=== PATIENT | male | born 1955 | race Caucasian/White ===

== ENCOUNTER 2021-03-31 09:12 | Emergency (ER) | payer BC, MEDICARE, SELFPAY ==
[2021-03-31 09:29] VITALS: BP 113/52; PULSE 58; RESP 16; TEMP 36.4; O2SAT 98
--- NOTE | 2021-03-31 10:07 | ED.WOUNDLAC ---
HPI - Wound/Laceration General Chief Complaint: Wound/Laceration Stated Complaint: cut left leg Time Seen by Provider: 03/31/21 10:07 Source: patient Mode of arrival: ambulatory Limitations: no limitations History of Present Illness HPI narrative: Tim Gonzalez comes to [facility] care with a PMH of chronic pain, high cholesterol, diabetes, GERD, chronic anticoagulation, depression, who comes with a laceration to the left, anterior lower extremity. Laceration occurred POA and happened when he ran his leg up against a piece of furniture Related Data Home Medications Medication Instructions Recorded Confirmed atorvastatin 03/31/21 fenofibrate mg 03/31/21 gabapentin 03/31/21 metformin mg 03/31/21 methadone 03/31/21 nitroglycerin mg 03/31/21 pantoprazole PO 03/31/21 ramipril mg 03/31/21 rivaroxaban [Xarelto] mg 03/31/21 trazodone 03/31/21 venlafaxine mg PO 03/31/21 Allergies Allergy/AdvReac Type Severity Reaction Status Date / Time amoxicillin Allergy Intermediate TONGUE Verified 04/19/18 12:35 SWELLING clavulanic acid Allergy Intermediate TONGUE Verified 04/19/18 12:35 SWELLING Sulfa (Sulfonamide Allergy Intermediate TONGUE Verified 04/19/18 12:35 Antibiotics) SWELLING codeine Allergy Unknown Verified 06/03/10 13:45 Review of Systems Review of Systems: CONSTITUTIONAL: Denies fever, chills, sweats. EYES: Denies visual changes, redness, discharge. ENT: Denies rhinorrhea, congestion, sore throat, otalgia. CARDIOVASCULAR: Denies chest pain, palpitations, edema. RESPIRATORY: Denies dyspnea, wheezing, cough GASTROINTESTINAL: Denies abdominal pain, nausea, vomiting, diarrhea. GENITOURINARY: Denies dysuria, hematuria, abnormal discharge SKIN: Denies rash or itching. NEUROLOGIC: Denies numbness, or focal weakness. PSYCHIATRIC: Denies anxiety or depression. [facility] Past Medical History Medical History Chronic anticoagulation Chronic pain High cholesterol Hypertension Family History Family History Mother Family history of diabetes mellitus in first degree relative Family history of pancreatic cancer Sibling Family history of diabetes mellitus in first degree relative Family history of heart disease in male family member before age 55 Father Family history of heart disease in male family member before age 55 Other Family history of cardiovascular disease Social History Social History (Updated 03/31/21 @ 10:51 by Melissa Anderson CNP) Smoking status: Former smoker Alcohol intake: former Substance use: former Comments At time of signature, I agree with nursing past medical, surgical, social and family history. There is no relevant family history pertinent to the presenting complaint. Exam Narrative: GENERAL: This is a well-nourished, well-developed patient, in mild distress. HEAD: normocephalic, atraumatic. EYES: Sclera clear/white. Vision is grossly intact. EARS: External ears normal,. Hearing grossly intact. NOSE: External nose normal without nasal discharge, nares without redness, no rhinorrhea. THROAT: Mucous membranes moist, NECK: Neck supple, non-tender CARDIOVASCULAR: Regular rate and rhythm without murmurs, gallops, or rubs. RESPIRATORY: Clear to auscultation. Breath sounds equal bilaterally. No wheezes, rales, or rhonchi. GASTROINTESTINAL: Abdomen soft, SKIN: warm, intact with no suspicious lesions or rash, good texture and turgor. 6 cm jagged lack to left anterior lower leg; controlled bleeding NEURO: awake, alert, and oriented to person, place and time. There were no obvious focal neurologic abnormalities. Steady gait EXTREMITIES: Normal range of motion. BACK: Nontender without deformity Course Course Emergency Course: Patient came with a 6 cm laceration to left lower extremity that occurred POA Laceration repair Start antibiotic largel
--- NOTE | 2021-03-31 10:36 | PC.NURSE ---
inpatient auditor in suturing.
== END 2021-03-31 11:09 | disposition home or self-care (01) ==
PROVIDERS: Emergency Provider Nurse Practitioner
DX: S81.812A Laceration without foreign body, left lower leg, initial encounter (principal); W22.03XA Walked into furniture, initial encounter; Z87.891 Personal history of nicotine dependence; Z79.01 Long term (current) use of anticoagulants; E78.00 Pure hypercholesterolemia, unspecified; I10 Essential (primary) hypertension; K21.9 Gastro-esophageal reflux disease without esophagitis; E11.9 Type 2 diabetes mellitus without complications; F32.9 Major depressive disorder, single episode, unspecified
CPT/HCPCS: 12002; 99213; G0463

== ENCOUNTER 2022-02-28 13:58 | Outpatient (CLI) | payer BC, MEDICARE, SELFPAY ==
--- NOTE | ~2022-02-28 | CT_ITS ---
EXAMINATION: CT chest high resolution wo tn DATE: 02/28/2022 14:22 INDICATION: ILD TECHNIQUE: Computed tomography (CT) of the chest was performed without intravenous contrast. Addition al 3D reconstructions utilizing coronal maximum intensity projection (MIP) were performed. Automated exposure control and iterative reconstruction technique were employed. The dose-length product was 21 5.76 mGy-cm. COMPARISON: Chest CT dated 06/02/2009 FINDINGS: Lung volumes remain normal. There are however new peripheral and lower lung predominant groundglass o pacities, irregular septal line thickening with honeycombing consistent with usual interstitial pneum onia (UIP) pattern chronic interstitial lung disease. 3 small bilateral pleural effusions. Mild cardi omegaly. Atherosclerotic coronary artery calcific lesions. Median sternotomy wires and changes of cor onary artery bypass grafting. Coronary artery stenting both of the needle vessels and of a bypass gra ft. No pericardial effusion. Thoracic aorta is normal in caliber. Calcified right hilar and mediastin al lymph nodes and splenic calcification, all consistent with old granulomatous disease. Moderate to severe thoracic spondylosis with multiple scattered Schmorl's nodes. IMPRESSION: 1. Peripheral and lower lung predominant lung disease with appearance favoring UIP pattern chronic in terstitial lung disease. Differential would include nonspecific interstitial pneumonia (NSIP) pattern chronic interstitial lung disease or mild pulmonary edema superimposed over mild emphysema. 2. Cardiomegaly with coronary artery disease and change of prior coronary artery bypass grafting and stenting of both chitina and vessels and of a bypass graft. Reviewed, dictated and finalized at location A. IMPRESSION: 1. Peripheral and lower lung predominant lung disease with appearance favoring UIP pattern chronic interstitial lung disease. Differential would include nonsp ecific interstitial pneumonia (NSIP) pattern chronic interstitial lung disease or mild pulmonary edema superimposed over mild emphysema. 2. Cardiomegaly with coronary artery disease and change of prior coronary arter y bypass grafting and stenting of both chitina and vessels and of a bypass graft .
== END 2022-02-28 13:59 | disposition home or self-care (01) ==
DX: J84.9 Interstitial pulmonary disease, unspecified (principal); I51.7 Cardiomegaly; I25.10 Atherosclerotic heart disease of native coronary artery without angina pectoris; Z98.890 Other specified postprocedural states
CPT/HCPCS: 71250

== ENCOUNTER 2022-06-15 13:14 | Emergency (ER) | payer MEDICARE, BC, SELFPAY ==
--- NOTE | ~2022-06-15 | XR_ITS ---
EXAMINATION: XR shoulder LT min 2V DATE: 06/15/2022 13:43 INDICATION: Anterior left shoulder pain and limited range of motion TECHNIQUE: AP internally and externally rotated, AP oblique externally rotated and transscapular Y vi ews of the left shoulder were obtained. COMPARISON: None FINDINGS: Slight widening of the left acromioclavicular joint space consistent with age-indeterminate acromiocl avicular joint separation. Acromioclavicular osteoarthritis with mild degenerative cystic and hypertr ophic changes at both sides of the joint space along with some dystrophic calcifications along the do rsal aspect of the capsule. Normal alignment and joint spaces at the glenohumeral joint. No fracture. Soft tissues are unremarkable. Median sternotomy wires and mediastinal surgical clips are seen, like ly from prior coronary artery bypass grafting. There is also been coronary artery stenting. Visualize d portions of the left lung is clear. IMPRESSION: Osteoarthritic changes at the left acromioclavicular joint with widening of the joint space consisten t with age-indeterminate acromioclavicular joint separation. Reviewed, dictated and finalized at location B. NTIFIC PUBLICATIONS EDITOR IMPRESSION: Osteoarthritic changes at the left acromioclavicular joint with widening of the joint space consistent with age-indeterminate acromioclavicular joint separati on.
[2022-06-15 13:25] VITALS: BP 124/50; PULSE 75; RESP 20; TEMP 35.8; O2SAT 100
--- NOTE | 2022-06-15 13:59 | ED.UPPEXIN ---
HPI - Extremity Injury (Upper) General Chief Complaint: Extremity Injury, Upper Stated Complaint: left shoulder pain Time Seen by Provider: 06/15/22 13:59 Source: patient Mode of arrival: ambulatory Limitations: no limitations History of Present Illness HPI narrative: 66 y/o male presented for c/o left shoulder pain after fall yesterday. Endorses pain to the top of the shoulder and decreased range of motion at the shoulder. Pain reported to shoulder with minimal movement. Denies radiating pain or numbness, tingling, weakness of the extremity. Admits to striking his head/left muslim on the floor. Denies LOC. Endorses headache. Also reports mild left upper thigh pain, denies bruising or numbness/weakness of the leg. Using cane. Taking methadone for chronic pain per pt. wears O2. Hx COPD. Taking Xarelto. Related Data Home Medications Medication Instructions Recorded Confirmed atorvastatin 80 mg tablet 80 mg PO DAILY 03/31/21 06/15/22 fenofibrate 160 mg tablet 160 mg PO DAILY 03/31/21 06/15/22 gabapentin 300 mg capsule 300 mg PO DIRECTED 03/31/21 06/15/22 metformin 1,000 mg tablet 1,000 mg PO DIRECTED 03/31/21 06/15/22 methadone 5 mg tablet 5 mg PO DAILY 03/31/21 06/15/22 nitroglycerin 0.4 mg sublingual 0.4 mg sublingual DIRECTED 03/31/21 06/15/22 tablet pantoprazole 40 mg tablet,delayed 40 mg PO DIRECTED 03/31/21 06/15/22 release ramipril 2.5 mg capsule 2.5 mg PO DIRECTED 03/31/21 06/15/22 rivaroxaban 20 mg tablet (Xarelto) 20 mg PO DIRECTED 03/31/21 06/15/22 trazodone 150 mg tablet 150 mg PO DAILY 03/31/21 06/15/22 venlafaxine 150 mg 150 mg PO DAILY 03/31/21 06/15/22 capsule,extended release 24 hr furosemide 20 mg tablet 20 mg PO DAILY 06/15/22 06/15/22 prednisone 5 mg tablet 5 mg PO DIRECTED 06/15/22 06/15/22 tamsulosin 0.4 mg capsule 0.4 mg PO DAILY 06/15/22 06/15/22 Allergies Allergy/AdvReac Type Severity Reaction Status Date / Time amoxicillin Allergy Intermediate TONGUE Verified 04/19/18 12:35 SWELLING clavulanic acid Allergy Intermediate TONGUE Verified 04/19/18 12:35 SWELLING Sulfa (Sulfonamide Allergy Intermediate TONGUE Verified 04/19/18 12:35 Antibiotics) SWELLING codeine Allergy Unknown Itching Verified 06/15/22 13:50 Review of Systems Review of Systems: CONSTITUTIONAL: Denies body aches, fever, chills EYES: Denies visual changes CARDIOVASCULAR: Denies chest pain, palpitations, or edema. RESPIRATORY: Denies cough or dyspnea. GASTROINTESTINAL: Denies abdominal pain, nausea, vomiting, or diarrhea. SKIN: Denies rash, or wounds. MUSCULOSKELETAL: Per HPI NEUROLOGIC: Denies headache, numbness, tingling, or weakness. All systems reviewed & are unremarkable except as noted in HPI and below PMFSH Past Medical History Medical History Chronic anticoagulation Chronic pain High cholesterol Hypertension Family History Family History Mother Family history of diabetes mellitus in first degree relative Family history of pancreatic cancer Sibling Family history of diabetes mellitus in first degree relative Family history of heart disease in male family member before age 55 Father Family history of heart disease in male family member before age 55 Other Family history of cardiovascular disease Social History Social History Smoking status: Former smoker Alcohol intake: former Substance use: former Comments At time of signature, I have reviewed and agree with nursing past medical, surgical, social and family history unless otherwise noted. Please see nursing chart for further information. There is no relevant family history pertinent to the presenting complaint Exam Narrative: GENERAL: Well-appearing, well-nourished, and in no acute distress. HEAD: Normocephalic, atraumatic. EYE
== END 2022-06-15 14:19 | disposition home or self-care (01) ==
PROVIDERS: Emergency Provider Nurse Practitioner Family
DX: M25.512 Pain in left shoulder (principal); Z87.891 Personal history of nicotine dependence; E78.00 Pure hypercholesterolemia, unspecified; I10 Essential (primary) hypertension; Z79.01 Long term (current) use of anticoagulants; J44.9 Chronic obstructive pulmonary disease, unspecified; Z99.81 Dependence on supplemental oxygen
CPT/HCPCS: 73030; 99213; G0463

== ENCOUNTER 2022-08-06 09:42 | Inpatient (IN) | payer MEDICARE, BC, SELFPAY ==
[2022-08-06] VITALS (22 sets, daily range): BP systolic 101–145; BP diastolic 54–100; PULSE 78–112; RESP 11–30; TEMP 36–36.4; O2SAT 93–100; BMI 24.6
--- NOTE | ~2022-08-06 | XR_ITS ---
EXAMINATION: XR chest 1V portable DATE: 08/11/2022 05:36 INDICATION: Respiratory failure. TECHNIQUE: A single frontal view of the chest was obtained. COMPARISON: Chest single view 08/10/2022, chest CT 08/06/2022 FINDINGS: There are small right and moderate-sized left pleural effusions. There are airspace opaciti es in all lung zones bilaterally with a basilar predominance. No pneumothorax. Cardiomegaly is noted. Median sternotomy wires and mediastinal surgical clips are seen, likely from prior coronary artery b ypass grafting. IMPRESSION: 1. Stable small right and moderate-sized left pleural effusions. 2. Stable diffuse lung disease with a basilar predominance, consistent with pulmonary edema versus pn eumonia. 3. Cardiomegaly. Reviewed, dictated and finalized at location A. WORKER IMPRESSION: 1. Stable small right and moderate-sized left pleural effusions. 2. Stable diffuse lung disease with a basilar predominance, consistent with pul monary edema versus pneumonia. 3. Cardiomegaly.
--- NOTE | ~2022-08-06 | XR_ITS ---
EXAMINATION: XR chest 1V portable DATE: 08/08/2022 06:28 INDICATION: Respiratory failure. TECHNIQUE: A single frontal view of the chest was obtained. COMPARISON: Chest single view 08/07/2022, chest CT 08/06/2022 FINDINGS: There are small right and large left pleural effusions. There are airspace and interstitial opacities throughout the lungs bilaterally. No pneumothorax. Cardiomegaly is noted. Median sternotom y wires and mediastinal surgical clips are seen, likely from prior coronary artery bypass grafting. T here is a vascular stent in right neck. IMPRESSION: 1. Stable small right and large left pleural effusions. 2. Stable diffuse lung disease, consistent with pulmonary edema versus pneumonia. 3. Cardiomegaly. Reviewed, dictated and finalized at location A. BINDER STRIPPER IMPRESSION: 1. Stable small right and large left pleural effusions. 2. Stable diffuse lung disease, consistent with pulmonary edema versus pneumoni a. 3. Cardiomegaly.
--- NOTE | ~2022-08-06 | XR_ITS ---
EXAMINATION: XR chest 1V portable DATE: 08/09/2022 05:39 INDICATION: Respiratory failure. TECHNIQUE: A single frontal view of the chest was obtained. COMPARISON: Chest single view 08/08/2022 FINDINGS: There are small right and moderate-sized left pleural effusions. There are airspace and int erstitial opacities throughout the lungs bilaterally. No pneumothorax. Cardiomegaly is noted. Median sternotomy wires and mediastinal surgical clips are seen, likely from prior coronary artery bypass gr afting. There is a vascular stent in right neck. IMPRESSION: 1. Stable small right and moderate-sized left pleural effusions. 2. Stable diffuse lung disease, consistent with pulmonary edema versus pneumonia. 3. Cardiomegaly. Reviewed, dictated and finalized at location A. ATOR WEAPON LOCATING RADAR IMPRESSION: 1. Stable small right and moderate-sized left pleural effusions. 2. Stable diffuse lung disease, consistent with pulmonary edema versus pneumoni a. 3. Cardiomegaly.
--- NOTE | ~2022-08-06 | CT_ITS ---
EXAMINATION: CT brain wo con DATE: 08/06/2022 11:02 INDICATION: Decreased mental status TECHNIQUE: Computed tomography (CT) of the head was performed without intravenous contrast. The dose- length product was 1286.33 mGy-cm. Automated exposure control and iterative reconstruction technique were employed. COMPARISON: CT dated 08/25/2008 FINDINGS: Brain parenchymal volume is normal. No ventriculomegaly or midline shift. Basilar cisterns are patent. Paranasal sinuses and mastoids are pneumatized. No depressed skull fractures. No acute he morrhage, infarction, mass or mass effect. There are scattered mild periventricular and subcortical w akila matter changes, most likely related to small vessel ischemic disease (microangiopathy). IMPRESSION: 1. No acute intracranial abnormality. Reviewed, dictated and finalized at location A. CTOR BUSINESS DEVELOPMENT
--- NOTE | ~2022-08-06 | XR_ITS ---
EXAMINATION: [id number]_[id number]_CR DATE: 08/08/2022 14:47 INDICATION: Left pleural effusion status post thoracentesis. TECHNIQUE: A single frontal view of the chest was obtained. COMPARISON: Chest single view 08/08/2022 FINDINGS: There are airspace and interstitial opacities in all lung zones bilaterally. There are smal l right and moderate-sized left pleural effusions. No pneumothorax. Calcified right hilar lymph nodes are consistent with old granulomatous disease. Cardiomegaly is noted. Median sternotomy wires and me diastinal surgical clips are seen, likely from prior coronary artery bypass grafting. IMPRESSION: 1. Small right and moderate-sized left pleural effusions with improvement on the left status post tho racentesis. 2. Diffuse lung disease with improvement on the left, consistent with pulmonary edema versus pneumoni a. 3. Cardiomegaly. Reviewed, dictated and finalized at location A. AGING INSPECTOR IMPRESSION: 1. Small right and moderate-sized left pleural effusions with improvement on th e left status post thoracentesis. 2. Diffuse lung disease with improvement on the left, consistent with pulmonary edema versus pneumonia. 3. Cardiomegaly.
--- NOTE | ~2022-08-06 | US_ITS ---
EXAMINATION: US thoracentesis DATE: 08/08/2022 14:35 INDICATION: pleural effusion TECHNIQUE: The procedure and its risks, benefits, and alternatives were discussed with the patient. P otential risks discussed included bleeding, infection, and pneumothorax. The patient understood the r isks and agreed to proceed. The skin was prepped and draped in sterile fashion. 1% lidocaine was used for local anesthesia. Under ultrasound guidance, a 5 Fr catheter with trochar was advanced into the left pleural effusion. Fluid was aspirated. The catheter was removed, and a dressing was applied. The re were no immediate complications. FINDINGS: Ultrasound images demonstrate a left pleural effusion and the catheter within the fluid. IMPRESSION: 1. Successful ultrasound-guided thoracentesis yielding 850 mL of serosanguineous fluid. Reviewed, dictated and finalized at location A. NTATION & MOBILITY SPECIALIST IMPRESSION: 1. Successful ultrasound-guided thoracentesis yielding 850 mL of serosanguineo us fluid.
--- NOTE | ~2022-08-06 | XR_ITS ---
XR chest 1V portable 08/07/2022 06:10 Indication: Respiratory failure Procedure: AP portable chest Comparison: Comparison to multiple prior studies sequentially, with oldest reviewed study dated 01/2010. Findings: Status post median sternotomy for CABG. Cardiomegaly. Diffuse bilateral airspace disease is unchanged. Bilateral pleural effusions, left greater than right. No pneumothorax. Impression: 1: Stable diffuse bilateral airspace disease which may represent pneumonia and/or edema. 2: Stable bilateral pleural effusions, left greater than right. Reviewed, dictated and finalized at location A. ESS TRACK VEHICLE MECHANIC Impression: 1: Stable diffuse bilateral airspace disease which may represent pneumonia and/ or edema. 2: Stable bilateral pleural effusions, left greater than right.
--- NOTE | ~2022-08-06 | CT_ITS ---
EXAMINATION: CT chest high resolution wo co DATE: 08/06/2022 15:32 INDICATION: hypoxia TECHNIQUE: Computed tomography (CT) of the chest was performed without intravenous contrast, includin g high-resolution images of the lungs. Automated exposure control and iterative reconstruction techni que were employed. The dose-length product was 510.76 mGy-cm. COMPARISON: 02/28/2022. X-ray chest, same date. FINDINGS: CHEST: Thoracic aorta: Mild ectasia and arch calcification. Lung parenchyma and airways: Centrilobular and groundglass opacities diffusely in the right lung and to a lesser extent in the aerated portions of the left upper lobe. Peripheral reticular opacities. Li ngular and left lower lobe consolidation with air bronchograms and volume loss. Thoracic inlet, axillae and chest wall: No thyroid or soft tissue mass. No axillary lymphadenopathy. Mediastinum: Dilated central pulmonary arteries as can be seen with pulmonary arterial hypertension. Right infrahilar calcified node Heart and pericardium: Prior CABG. Coronary artery stents. Aortic valve calcification. Cardiomegaly. Coronary artery calcifications: Heavy. Pleura: Large left and small right pleural fluid collections. Upper abdomen: No significant finding. Thoracic bones: No acute osseous finding in the chest. IMPRESSION: 1. Pulmonary opacities may reflect active interstitial lung disease, hypersensitivity pneumonitis, re spiratory bronchiolitis, or atypical infection, with underlying chronic facial change. A component of mild interstitial edema may also be present. 2. Lingular and left lower lobe atelectasis/consolidation. Infection is not excluded. 3. Large left and small right pleural effusions.. Reviewed, dictated and finalized at location K. COPTER TECHNICIAN IMPRESSION: 1. Pulmonary opacities may reflect active interstitial lung disease, hypersensi tivity pneumonitis, respiratory bronchiolitis, or atypical infection, with unde rlying chronic facial change. A component of mild interstitial edema may also b e present. 2. Lingular and left lower lobe atelectasis/consolidation. Infection is not exc luded. 3. Large left and small right pleural effusions..
--- NOTE | ~2022-08-06 | XR_ITS ---
EXAMINATION: XR chest 1V portable DATE: 08/10/2022 05:59 INDICATION: Respiratory failure. TECHNIQUE: A single frontal view of the chest was obtained. COMPARISON: Chest single view 08/09/2022 FINDINGS: There are small right and moderate-sized left pleural effusions. There is interstitial and airspace opacities in all lung zones bilaterally. No pneumothorax. Cardiomegaly is noted. Median ster notomy wires and mediastinal surgical clips are seen, likely from prior coronary artery bypass grafti ng. Calcified right hilar lymph nodes are consistent with old granulomatous disease. IMPRESSION: 1. Stable small right and moderate-sized left pleural effusions. 2. Diffuse lung disease with mild improvement on the right, consistent with pulmonary edema versus pn eumonia. 3. Cardiomegaly. Reviewed, dictated and finalized at location A. STAIRS MAID IMPRESSION: 1. Stable small right and moderate-sized left pleural effusions. 2. Diffuse lung disease with mild improvement on the right, consistent with pul monary edema versus pneumonia. 3. Cardiomegaly.
--- NOTE | ~2022-08-06 | XR_ITS ---
XR chest 1V 08/06/2022 11:02 Indication: Altered mental status. Dyspnea. Procedure: AP portable chest Comparison: 05/03/2012 Findings: Status post median sternotomy for CABG. Moderate cardiomegaly with pulmonary edema. Bilater al pleural effusions, large on the left and small on the right. Cannot exclude underlying pneumonia. Impression: 1: Cardiomegaly with pulmonary edema. 2: Bilateral pleural effusions, left greater than right. Reviewed, dictated and finalized at location A. STANT PRODUCER Impression: 1: Cardiomegaly with pulmonary edema. 2: Bilateral pleural effusions, left greater than right.
--- NOTE | 2022-08-06 09:50 | ECG_ITS ---
Measurements Intervals [place] Rate: 96 P: PA: 0 QRS: 16 QRSD: 121 T: 125 QT: 392 QTc: 496 Interpretive Statements ATRIAL FIBRILLATION INTRAVENTRICULAR CONDUCTION DELAY DELAYED PRECORDIAL R/S TRANSITION BORDERLINE ST-T WAVE ABNORMALITY- HIGH LATERAL LEADS ABNORMAL ECG NO PREVIOUS ECG AVAILABLE FOR COMPARISON Electronically Signed On 08-06-2022 10:04:56 PROCUREMENT BUYER by Julian Jones D.O.
[2022-08-06] MEDS: NALOXONE HCL 0.4 MG/ML VIAL IV PUSH (09:52)
[2022-08-06 09:55] LABS: Glucose Point of Care 135 mg/dl (65-105)
--- NOTE | 2022-08-06 09:55 | PC.NURSE ---
after giving pt Narcan pt awake and talking. pt unable to stay still during CT scan. will try again after pt. is more calm.
[2022-08-06 10:33] LABS: Alveolar/Arterial O2 Gradient 564.3 mmHg; Base Excess ABG 9.6 mEq/l (+/-2.0); Fractional Inspired Oxygen 100 %; HCO3 ABG 37.7 mEq/l (22.0-26.0); Oxygen Content ABG 12.9 %vol (16.0-22.0); Oxygen Saturation ABG 93.1 % (95.0-100.0); Oxyhemoglobin 90.4 % THb (90.0-100.0); PO2 ABG 74.2 mmHg (80.0-100.0); PO2 FiO2 Ratio Arterial Blood 0.74 %; Total Hemoglobin 10.1 g/dL (12.0-18.0); pH ABG 7.322 (7.350-7.450)
[2022-08-06 10:36] LABS: Device NON-REBREATHER MASK; PCO2 ABG 74.5 mmHg (35.0-45.0); Site Drawn LEFT BRACHIAL
[2022-08-06] MEDS: LORazepam INJ (*CRX) 2 MG/ML VIAL 0.5 MG IV PUSH (10:43)
[2022-08-06 10:48] LABS: Basophils Absolute Auto 0.1 K/mm3 (0.0-0.1); Basophils Percent Auto 0.5 % (0.2-1.2); Hematocrit 32.2 % (42.0-52.0); Hemoglobin 8.9 g/dL (14.0-18.0); Immature Granulocyte Absolute 0.05 K/mm3 (0.00-0.031); Immature Granulocyte Percent A 0.5 % (0-0.5); Lymphocytes Percent Auto 3.6 % (18.3-44.2); Mean Corpuscular HGB Conc 27.6 g/dl (32-36); Mean Corpuscular Hemoglobin 25.2 pg (26-34); Mean Corpuscular Volume 91.2 fl (80-100); Monocytes Percent Auto 9.3 % (2.6-8.5); Neutrophils Absolute Auto 9.5 K/mm3 (1.3-6.7); Neutrophils Percent Auto 86.1 % (45.5-73.1); Platelet Count Result 301 k/mm3 (150-375); Red Blood Count 3.53 M/mm3 (4.6-6.20)
[2022-08-06 10:56] LABS: Alanine Aminotransferase 17 U/L (6-50); Albumin Level 3.6 g/dL (3.5-5.1); Alkaline Phosphatase 102 U/L (38-126); Anion Gap 6 mmol/L (8-16); Aspartate Amino Transferase 25 U/L (17-59); Bilirubin,Total 0.9 mg/dL (0.2-1.3); Blood Urea Nitrogen 21 mg/dL (9-20); Calcium 8.4 mg/dL (8.4-10.2); Carbon Dioxide 39 mmol/L (22-30); Chloride 91 mmol/L (98-107); Estimated CRCL calculation 47 ml/min; Estimated Glomerular Filt Rate 51; Glucose 136 mg/dL (65-110); Potassium 4.4 mmol/L (3.4-5.0); Sodium 136 mmol/L (137-145)
[2022-08-06 10:57] LABS: Ammonia 34 umol/L (9-30)
--- NOTE | 2022-08-06 10:58 | PC.NURSE ---
pt in CT at this time.
[2022-08-06 10:59] LABS: INR 3.1; Prothrombin Time 30.7 Seconds (11.1-14.7)
[2022-08-06 11:00] LABS: Partial Thromboplastin Time 56.6 SECONDS (22.3-36.8)
[2022-08-06 11:16] LABS: Platelet Estimate Adequate (Adequate)
[2022-08-06 11:17] LABS: Anisocytosis 1+ (NORMAL); Hypochromasia 1+ (NORMAL); Stomatocytes 1+ (NORMAL)
[2022-08-06 11:18] LABS: Acanthocytes 1+ (NORMAL); Schistocytes None Seen (NORMAL)
[2022-08-06 11:22] LABS: Add Urine Microscopic? YES; Appearance Urine Clear (Clear); Bilirubin Urine 1+ (Negative); Blood Urine Negative (Negative); Color Urine Yellow (Yellow); Glucose Urine UA Negative (Negative); Ketones Urine Negative (Negative); Leukocyte Esterase Ur Negative LEU/UL (Negative); Nitrate Urine Negative (Negative); Protein Urine 2+ mg/dL (Negative); Specific Grav Ur >= 1.030 (1.001-1.035)
[2022-08-06 11:23] LABS: Influenza A QL RT-PCR Negative (Negative); Influenza B QL RT-PCR Negative (Negative); SARS-CoV-2 RNA PCR Negative
[2022-08-06 11:28] LABS: WBC Urine 0-3 /hpf
--- NOTE | 2022-08-06 11:34 | ED.AMS ---
HPI - Altered Mental Status General Chief Complaint: Altered Mental Status Stated Complaint: UNRESPONSIVE Time Seen by Provider: 08/06/22 09:47 Source: family, EMS, RN notes reviewed and old records reviewed Mode of arrival: EMS Limitations: altered mental status History of Present Illness HPI narrative: This is a 67 year old male with history of heart disease, lung disease, and chronic pain who presents for evaluation of decreased responsiveness. 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 She states that patient has had increasing shortness of breath and lethargy for several weeks. She states that he has started requiring oxygen all the time for several weeks and he is sleeping more and eating less. She reports she also thinks he is getting confused with his medication. Yesterday was a good day per family. She last talked to him at 6 pm yesterday and he seemed fine. He was in bed asleep last night at 930 pm when she arrived home. He did not wake up this morning so she tried to wake him at at 9 am this morning. She reports he was breathing but unresponsive. EMS reports patient was 77% on his 3 L NC so he was placed on nonrebreather. Related Data Home Medications Medication Instructions Recorded Confirmed atorvastatin 80 mg tablet 80 mg PO DAILY 03/31/21 08/06/22 gabapentin 300 mg capsule 300 mg PO DIRECTED 03/31/21 08/06/22 metformin 1,000 mg tablet 1,000 mg PO BID 03/31/21 08/06/22 methadone 5 mg tablet 5 mg PO DAILY 03/31/21 08/06/22 nitroglycerin 0.4 mg sublingual 0.4 mg sublingual DIRECTED PRN 03/31/21 08/06/22 tablet Chest Pain pantoprazole 40 mg tablet,delayed 40 mg PO ONCE 03/31/21 08/06/22 release rivaroxaban 20 mg tablet (Xarelto) 20 mg PO DAILY 03/31/21 08/06/22 trazodone 150 mg tablet 150 mg PO HS 03/31/21 08/06/22 venlafaxine 150 mg 150 mg PO DAILY 03/31/21 08/06/22 capsule,extended release 24 hr prednisone 5 mg tablet 5 mg PO ONCE 06/15/22 08/06/22 tamsulosin 0.4 mg capsule 0.4 mg PO DAILY 06/15/22 08/06/22 methadone 5 mg tablet 5 mg PO BID 08/06/22 08/06/22 Allergies Allergy/AdvReac Type Severity Reaction Status Date / Time amoxicillin Allergy Intermediate TONGUE Verified 04/19/18 12:35 SWELLING clavulanic acid Allergy Intermediate TONGUE Verified 04/19/18 12:35 SWELLING Sulfa (Sulfonamide Allergy Intermediate TONGUE Verified 04/19/18 12:35 Antibiotics) SWELLING codeine Allergy Unknown Itching Verified 06/15/22 13:50 Review of Systems Review of Systems: ROS unobtainable: Yes unobtainable due to mental status PMFSH Past Medical History Medical History (Updated 08/06/22 @ 18:32 by Kim Vaz MD) Amputation toe left small toe Chronic anticoagulation Chronic pain Coronary artery disease Status post CABG and multiple PCIs Diabetes mellitus High cholesterol History of DVT (deep vein thrombosis) History of esophageal dilatation Hyperlipidemia Hypertension Interstitial lung disease Pleural effusion Surgical History Surgical History (Updated 08/06/22 @ 17:56 by Nisha Holly NP) H/O arthroscopic knee surgery H/O carotid endarterectomy H/O shoulder surgery History of back surgery History of esophagogastroduodenoscopy (EGD) History of exploratory laparotomy History of partial colectomy Hx of CABG S/P peripheral artery angioplasty with stent placement Total of 17 stents S/P tonsillectomy and adenoidectomy Family History Family History Mother Family history of diabetes mellitus in first degree relative Family history of pancreatic cancer Sibling Family history of diabetes mellitus in first degree relative Family history of heart disease in male family member before age 55 Father Family history of heart disease in male family member before age 55 Other Family history of cardiovascular disease Social History Social History (Updated 08/06/22 @ 17:59 by Nisha Holly NP) Social History: The
[2022-08-06] MEDS: IPRATROPIUM BR 0.02% INH SOLN 0.5 MG/2.5 ML VIAL 1 MG INHALATION (11:35)
[2022-08-06] MEDS: ALBUTEROL SULFATE NEB 2.5 MG/3 ML INH 10 MG INHALATION (11:36)
[2022-08-06 11:38] LABS: Amphetamine Screen Urine Negative (Negative); Barbiturate Screen Urine Negative (Negative); Benzodiazepines Screen Urine Negative (Negative); Cannabinoid Screen Urine Negative (Negative); Cocaine Screen Urine Negative (Negative); Methadone Screen Urine Positive (Negative); Opiate Screen Urine Negative (Negative); Phencyclidine Screen Urine Negative (Negative)
[2022-08-06] MEDS: FUROSEMIDE INJ 40 MG/4 ML VIAL IV PUSH (11:51)
--- NOTE | 2022-08-06 13:16 | PM.IMHP ---
H&P: HPI History of Present Illness Date/Time: 08/06/22 13:16 Chief Complaint: Altered mental status Narrative: This is a 67-year-old male patient who has a history of chronic back pain and is on methadone. He also has a history of coronary artery disease, interstitial lung disease and O2 dependence. The patient initially had the oxygen to be used at night and p.r.n. however he has been using it 247 at 3 L per nasal cannula. The patient has been sleeping more and eating less. He has become more confused. Yesterday the partner stated that they had a good day and was a normal day for them. The patient was asleep at 9:30 a.m. last night when his significant other arrived home. And then this morning she tried to wake him up around 9:00 a.m. and was having difficulty getting him to arouse. EMS was activated and his oxygen levels only 7 7 % on 3 L per nasal cannula and then was placed on a non-rebreather. Initial blood gas pH was 7.322 and CO2 was 74.5. Repeat ABG 7.282 pH CO2 was 85.3. His settings were changed and repeat the ABG 7.380 and CO2 71.6. PO2 was 68.5. The aircraft engine assembler has been consulted and has already seen the patient and ER. Chest x-ray shows cardiomegaly with pulmonary edema. Bilateral pleural effusions left greater than right. Head CT shows no acute intracranial abnormality. High-resolution CT was read as1. Pulmonary opacities may reflect active interstitial lung disease, hypersensitivity pneumonitis, respiratory bronchiolitis, or atypical infection, with underlying chronic facial change. A component of mild interstitial edema may also be present. 2. Lingular and left lower lobe atelectasis/consolidation. Infection is not excluded. 3. Large left and small right pleural effusions.. The patient was given nor can, Ativan, Lasix neb treatments, Levaquin, and Solu-Medrol in the emergency room. Patient was arousable with sternal stimulation. The patient is being admitted to inpatient status on the date of service of 08/06/2022 Review of Systems Review of Systems: See HPI All systems reviewed & are unremarkable except as noted in HPI and below Constitutional: Constitutional: Reports as per HPI and Reports no additional constitutional complaints Eyes: Eyes: Reports as per HPI and Reports no additional eye complaints ENT: Reports system reviewed and no additional complaints, except as documented and Reports Normal hearing present Cardiovascular: Cardiovascular: Reports no additional cardiovascular complaints Respiratory: Respiratory: Reports no additional respiratory complaints and Reports no additional respiratory complaints Gastrointestinal: Gastrointestinal: Reports as per HPI and Reports no additional gastrointestinal complaints Musculoskeletal: Musculoskeletal: Reports no additional musculoskeletal complaints Integumentary/Breasts: Skin/Breast: Reports system reviewed and no additional complaints, except as docu and Reports as per HPI Neurologic: Reports system reviewed and no additional complaints, except as documented, Reports as per HPI and Reports Normal hearing present Psychiatric: Psychiatric: Reports no additional psychiatric complaints and Reports as per HPI Endocrine: Endocrine: Reports no additional endocrine complaints Hematologic/Lymphatic: Hematologic/Lymphatic: Reports no additional hematologic/lymphatic complaints Allergic/Immunologic: Allergic/Immunologic: Reports no additional allergic/immunologic complaints [facility] Past Medical History Medical History (Updated 08/06/22 @ 18:16 by Nisha Holly NP) Amputation toe left small toe Chronic anticoagulation Chronic pain Coronary artery disease Status post CABG and multiple PCIs Diabetes mellitus High cholesterol History of DVT (deep vein thrombosis) History of esophageal dilatation Hyperlipidemia Hypertension Interstitial lung disease Pleural effusion Surgical History Surgical History (Updated 08/06/22 @ 17:56 by Nisha Holly NP) H
--- NOTE | 2022-08-06 13:44 | WPDCNINT ---
Assessment and Plan Assessment and plan (1) Acute and chronic respiratory failure: Code(s): J96.20 - Acute and chronic respiratory failure, unspecified whether with hypoxia or hypercapnia Status: Acute Assessment and Plan: Acute on chronic hypoxic and hypercarbic Respiratory failure secondary to bilateral left more than right pleural effusion, pulmonary edema, possible pneumonia, baseline interstitial lung disease of unknown nature, toxic encephalopathy Patient at this time is protecting his airway and is arousable on stimulation He has been placed on BiPAP and I have changes settings to 16/8 50% FiO2. Titrate FiO2 to keep sat above 90% Repeat ABG has been ordered Elevated CO2 on BMP despite elevated creatinine suggest chronic CO2 retention BNP 6830 Chest x-ray reviewed and CT chest has been ordered to better evaluate his lungs Bronchodilators Lasix IV given in the ER Empiric antibiotics for pneumonia Blood cultures have been sent Check BNP level May need thoracentesis Continue home below steroids. I will hold on increasing steroid dose unless CT scan suggest worsening of interstitial lung disease considering the acute private branch exchange service advisor 24 hours as patient was at baseline when he went to bed May need intubation and mechanical ventilation if deteriorates further Check echocardiogram (2) Pulmonary edema: Code(s): J81.1 - Chronic pulmonary edema Status: Acute Assessment and Plan: See above (3) Interstitial lung disease: Code(s): J84.9 - Interstitial pulmonary disease, unspecified Status: Acute Assessment and Plan: See above (4) Pleural effusion: Code(s): J90 - Pleural effusion, not elsewhere classified Status: Acute Assessment and Plan: See above (5) Coronary artery disease: Code(s): I25.10 - Atherosclerotic heart disease of [place] coronary artery without angina pectoris Status: Acute Assessment and Plan: Resume statin P.r.n. nitroglycerin (6) Diabetes mellitus: Code(s): E11.9 - Type 2 diabetes mellitus without complications Status: Acute Assessment and Plan: Sliding scale insulin (7) Elevated serum creatinine: Code(s): R79.89 - Other specified abnormal findings of blood chemistry Status: Acute Assessment and Plan: Patient creatinine is 1.4 Baseline creatinine unknown Lasix given in the ER for pulmonary edema Monitor urine output electrolytes and creatinine Place Ambriz for accurate urine output monitoring (8) Hyperammonemia: Code(s): E72.20 - Disorder of urea cycle metabolism, unspecified Status: Acute Assessment and Plan: Ammonia slightly elevated but unlikely to explain change in mental status Monitor level Lactulose (9) Encephalopathy: Code(s): G93.40 - Encephalopathy, unspecified Status: Acute Assessment and Plan: Likely toxic metabolic encephalopathy as patient is on methadone, mildly elevated CO2, mildly elevated ammonia level He is protecting airway at this time Head CT was negative Hold all sedative Continue BiPAP Monitor closely Plan DVT prophylaxis -patient is on Xarelto which will be held at this time as patient may need invasive procedures including a thoracentesis Stress ulcer prophylaxis -PPI Nutrition -NPO Code Status - Full Code I spoke to patient's partner and daughter at bedside and updated them with patient's current status and current plan for treatment and workup. I answered all their questions Total Critical Care Time - 60 minutes Due to a high probability of clinically significant, life threatening deterioration, the patient required my highest level of preparedness to intervene emergently and I personally spent this critical care time directly and personally managing the patient. This critical care time included obtaining a history; examining the patient; pulse oximetry; ordering and review of studies; arranging urgent treatment wi
[2022-08-06 13:54] LABS: NT Pro B Type Natriuretic Pept 6830 pg/mL (5-100)
[2022-08-06 14:11] LABS: Hemoglobin A1C 8.4 % (<5.7)
[2022-08-06 14:36] LABS: Alveolar/Arterial O2 Gradient 167.7 mmHg; Base Excess ABG 10.5 mEq/l (+/-2.0); Fractional Inspired Oxygen 50 %; HCO3 ABG 39.4 mEq/l (22.0-26.0); Oxygen Content ABG 12.4 %vol (16.0-22.0); Oxygen Saturation ABG 95.7 % (95.0-100.0); Oxyhemoglobin 93.9 % THb (90.0-100.0); PO2 ABG 92.8 mmHg (80.0-100.0); PO2 FiO2 Ratio Arterial Blood 1.86 %; Total Hemoglobin 9.3 g/dL (12.0-18.0)
[2022-08-06 14:37] LABS: Procalcitonin 0.1 ng/mL
[2022-08-06 14:42] LABS: pH ABG 7.282 (7.350-7.450)
[2022-08-06 14:43] LABS: Device NON-INVASIVE VENT; Modified Allen's Test Pass; PCO2 ABG 85.3 mmHg (35.0-45.0); Site Drawn LEFT RADIAL
[2022-08-06 14:45] LABS: Non-Invasive Expiratory Pressure 8 CMH2O; Non-Invasive Inspiratory Pressure 16 CMH2O; Non-Invasive Vent Rate 20 /MIN
[2022-08-06] MEDS: methylPREDNISolone SOD SUCC 125 MG VIAL IV PUSH (14:47)
[2022-08-06 14:49] LABS: Creatine Kinase 49 U/L (55-170)
--- NOTE | 2022-08-06 15:33 | ADMGEN ---
This patient, Tim Gonzalez, was admitted to Intensive Care Unit-7 AT 1533. Patient/family oriented to hospital policies and general routines including ID bracelet, bed and alarms, visiting hours, pain management, procedures, bathroom and other care routines, personal items, smoking policy, room service/diet, and visiting hours. Information on how to activate the Rapid Response Team has been discussed. Patient/Family are encouraged to report perceived risks to care and to ask questions if they do not understand what they are told or what they should do.
[2022-08-06 16:30] LABS: Glucose Point of Care 165 mg/dl (65-105)
[2022-08-06] MEDS: methylPREDNISolone SOD SUCC 125 MG VIAL 60 MG IV PUSH ×2 (17:07→23:43)
[2022-08-06 17:23] LABS: Alveolar/Arterial O2 Gradient 170.9 mmHg; Base Excess ABG 13.9 mEq/l (+/-2.0); HCO3 ABG 41.4 mEq/l (22.0-26.0); Oxygen Content ABG 12.8 %vol (16.0-22.0); Oxygen Saturation ABG 92.6 % (95.0-100.0); Oxyhemoglobin 91.2 % THb (90.0-100.0); PO2 ABG 68.5 mmHg (80.0-100.0); PO2 FiO2 Ratio Arterial Blood 1.52 %; Total Hemoglobin 9.9 g/dL (12.0-18.0)
[2022-08-06 17:27] LABS: Device NON-INVASIVE VENT; Fractional Inspired Oxygen 50 %; Modified Allen's Test Pass; PCO2 ABG 71.6 mmHg (35.0-45.0); Site Drawn RIGHT BRACHIAL
[2022-08-06 17:29] LABS: Non-Invasive Expiratory Pressure 6 CMH2O; Non-Invasive Inspiratory Pressure 20 CMH2O; Non-Invasive Vent Rate 20 /MIN
[2022-08-06] MEDS: dexmedeTOMIDine 400 MCG/100 ML 400 MCG/100 ML BAG IV CONT (19:47)
[2022-08-06 20:27] LABS: Creatinine Urine 195.7 mg/dL
[2022-08-06 20:32] LABS: Sodium Urine Random 13 meq/L
[2022-08-07] VITALS (41 sets, daily range): BP systolic 135–159; BP diastolic 63–94; PULSE 68–131; RESP 14–37; TEMP 36.2–36.6; O2SAT 64–100
[2022-08-07 00:21] LABS: Glucose Point of Care 192 mg/dl (65-105)
[2022-08-07] MEDS: dexmedeTOMIDine 400 MCG/100 ML 400 MCG/100 ML BAG 15.58 MCG IV CONT (02:03)
[2022-08-07 03:57] LABS: Alveolar/Arterial O2 Gradient 93.6 mmHg; Base Excess ABG 15.4 mEq/l (+/-2.0); Carboxyhemoglobin 0.1 % THb (0-2.0); Fractional Inspired Oxygen 30 %; HCO3 ABG 40.8 mEq/l (22.0-26.0); Methemoglobin ABG 0.2 %THb (0-1.5); Oxygen Content ABG 12.7 %vol (16.0-22.0); Oxygen Saturation ABG 90.5 % (95.0-100.0); Oxyhemoglobin 88.6 % THb (90.0-100.0); PO2 ABG 55.7 mmHg (80.0-100.0); PO2 FiO2 Ratio Arterial Blood 1.86 %; Reduced Hemoglobin 11.1 %THb (0-5.0); Total Hemoglobin 10.2 g/dL (12.0-18.0); pH ABG 7.488 (7.350-7.450)
[2022-08-07 03:59] LABS: Device NON-INVASIVE VENT; Modified Allen's Test Pass; Non-Invasive Vent Rate 20 /MIN; Site Drawn RIGHT BRACHIAL
[2022-08-07 04:00] LABS: Non-Invasive Expiratory Pressure 6 CMH2O; Non-Invasive Inspiratory Pressure 20 CMH2O
[2022-08-07 04:10] LABS: Basophils Percent Auto 0.1 % (0.2-1.2); Hematocrit 30.9 % (42.0-52.0); Hemoglobin 9.1 g/dL (14.0-18.0); Immature Granulocyte Absolute 0.07 K/mm3 (0.00-0.031); Immature Granulocyte Percent A 0.7 % (0-0.5); Lymphocytes Absolute Auto 0.32 K/mm3 (0.9-3.2); Lymphocytes Percent Auto 3.1 % (18.3-44.2); Mean Corpuscular HGB Conc 29.4 g/dl (32-36); Mean Corpuscular Hemoglobin 25.3 pg (26-34); Mean Corpuscular Volume 85.8 fl (80-100); Mean Platelet Volume 10.1 fl (7.4-10.4); Monocytes Absolute Auto 0.3 K/mm3 (0.1-0.6); Monocytes Percent Auto 2.7 % (2.6-8.5); Neutrophils Absolute Auto 9.8 K/mm3 (1.3-6.7); Neutrophils Percent Auto 93.4 % (45.5-73.1); Platelet Count Result 262 k/mm3 (150-375); Red Cell Distribution Width 17.7 % (11.5-14.5); White Blood Count 10.4 K/mm3 (4.5-10.0)
[2022-08-07 04:20] LABS: Ammonia 18 umol/L (9-30)
[2022-08-07 04:35] LABS: Anisocytosis 1+ (NORMAL); Hypochromasia 1+ (NORMAL); Platelet Estimate Adequate (Adequate)
[2022-08-07 04:38] LABS: Poikilocytosis 1+ (NORMAL); Schistocytes None Seen (NORMAL)
[2022-08-07 04:47] LABS: Alanine Aminotransferase 17 U/L (6-50); Albumin Level 3.4 g/dL (3.5-5.1); Alkaline Phosphatase 90 U/L (38-126); Aspartate Amino Transferase 23 U/L (17-59); Bilirubin,Total 0.9 mg/dL (0.2-1.3); Blood Urea Nitrogen 25 mg/dL (9-20); Calcium 8.4 mg/dL (8.4-10.2); Carbon Dioxide > 40 mmol/L (22-30); Chloride 86 mmol/L (98-107); Estimated CRCL calculation 74 ml/min; Estimated Glomerular Filt Rate > 60; Glucose 203 mg/dL (65-110); Magnesium 1.4 mg/dL (1.6-2.3); Potassium 4.4 mmol/L (3.4-5.0); Sodium 132 mmol/L (137-145)
[2022-08-07] MEDS: methylPREDNISolone SOD SUCC 125 MG VIAL 60 MG IV PUSH ×4 (06:00→23:10)
[2022-08-07] MEDS: FUROSEMIDE INJ 40 MG/4 ML VIAL IV PUSH (06:00)
[2022-08-07] MEDS: INSULIN ASPART (*BKC) 100 UNITS/ML SUB-Q ×3 (06:01→23:13)
[2022-08-07 06:02] LABS: Glucose Point of Care 210 mg/dl (65-105)
[2022-08-07] MEDS: dexmedeTOMIDine 400 MCG/100 ML 400 MCG/100 ML BAG 25.32 MCG IV CONT ×3 (07:01→18:30)
[2022-08-07] MEDS: MAGNESIUM SULF 2 GM/WATER 50ML 2 GM/50 ML BAG IVPB (08:10)
[2022-08-07 08:57] LABS: Albumin Level 3.6 g/dL (3.5-5.1); Lactate Dehydrogenase 225 U/L (120-246)
[2022-08-07] MEDS: PANTOPRAZOLE SODIUM IV 40 MG VIAL IV PUSH (08:58)
--- NOTE | 2022-08-07 09:01 | WPDINTPN ---
Progress Note: A&P Assessment and Plan (1) Acute and chronic respiratory failure: Code(s): J96.20 - Acute and chronic respiratory failure, unspecified whether with hypoxia or hypercapnia Status: Acute Assessment and Plan: Acute on chronic hypoxic and hypercarbic Respiratory failure secondary to bilateral left more than right pleural effusion, pulmonary edema, possible pneumonia, baseline interstitial lung disease of unknown nature, toxic encephalopathy Patient on presentation was protecting his airway and is arousable on stimulation He has been placed on BiPAP and settings were changed to 20/5 FiO2. ABG has improved and patient appears much more awake today. I will transition patient to Airvo and see if patient tolerates. with use BiPAP p.r.n. and at night Elevated CO2 on BMP despite elevated creatinine suggest chronic CO2 retention BNP [address] 1. Pulmonary opacities may reflect active interstitial lung disease, hypersensitivity pneumonitis, respiratory bronchiolitis, or atypical infection, with underlying chronic facial change. A component of mild interstitial edema may also be present. 2. Lingular and left lower lobe atelectasis/consolidation. Infection is not excluded. 3. Large left and small right pleural effusions.. continue Bronchodilators Lasix IV given in the ER and will be continued continue Empiric antibiotics for pneumonia although his procalcitonin is low and WBC has normalized Blood cultures have been sent will request ultrasound-guided thoracentesis by IR for left pleural effusion patient has history of interstitial lung disease. consult pulmonary. continue Mr. Shine May need intubation and mechanical ventilation if deteriorates pending echocardiogram (2) Pulmonary edema: Code(s): J81.1 - Chronic pulmonary edema Status: Acute Assessment and Plan: See above (3) Interstitial lung disease: Code(s): J84.9 - Interstitial pulmonary disease, unspecified Status: Acute Assessment and Plan: See above (4) Pleural effusion: Code(s): J90 - Pleural effusion, not elsewhere classified Status: Acute Assessment and Plan: See above (5) Coronary artery disease: Code(s): I25.10 - Atherosclerotic heart disease of [place] coronary artery without angina pectoris Status: Acute Assessment and Plan: continue statin P.r.n. nitroglycerin (6) Diabetes mellitus: Code(s): E11.9 - Type 2 diabetes mellitus without complications Status: Acute Assessment and Plan: Sliding scale insulin (7) Elevated serum creatinine: Code(s): R79.89 - Other specified abnormal findings of blood chemistry Status: Acute Assessment and Plan: Patient creatinine is 1.4 which is improved to 0.9 Lasix given in the ER for pulmonary edema. Patient has no signs of volume overload accept pleural effusion. Monitor urine output electrolytes and creatinine Ambriz placed for accurate urine output monitoring (8) Hyperammonemia: Code(s): E72.20 - Disorder of urea cycle metabolism, unspecified Status: Acute Assessment and Plan: Ammonia slightly elevated but unlikely to explain change in mental status Monitor level which has normalized this more Lactulose will be continued but will decrease the dose (9) Encephalopathy: Code(s): G93.40 - Encephalopathy, unspecified Status: Acute Assessment and Plan: Likely toxic metabolic encephalopathy as patient is on methadone, mildly elevated CO2, mildly elevated ammonia level Head CT was negative significantly improved this morning. continue to hold all sedative will discontinue Precedex this morning and monitor Plan DVT prophylaxis -patient is on Xarelto which will be held at this time as patient may need invasive procedures including a thoracentesis Stress ulcer prophylaxis -PPI Nutrition -NPO Code Status - Full Code I spoke to patient's partner at beds
[2022-08-07] MEDS: dexmedeTOMIDine 400 MCG/100 ML 400 MCG/100 ML BAG 21.42 MCG IV CONT (11:08)
[2022-08-07 12:23] LABS: Glucose Point of Care 259 mg/dl (65-105)
--- NOTE | 2022-08-07 13:10 | PC.NURSE ---
Patient oriented to person, year, president. Not oriented to location. Patient restless, anxious, uncooperative, and impulsive. Patient difficult to redirect. Patient experiencing visual hallucinations, stating there is water at the end of the bed, and maggots on the wall. Patient remains on bipap at this time. Family at bedside. notified of visual hallucinations, no additional orders at this time. Will continue to monitor.
--- NOTE | 2022-08-07 15:35 | PM.IMPN ---
Progress Note: A&P Assessment and Plan (1) Pneumonia: Code(s): J18.9 - Pneumonia, unspecified organism Status: Acute Assessment and Plan: CT scan shows pulmonary opacities which could be the interstitial lung disease hypersensitivity pneumonitis respiratory bronchiolitis or atypical infection. The patient's was started on Levaquin and vancomycin was added as per antibiotic stewardship. -the patient is currently on a BiPAP. Patient has hypoxia and hypercapnia. Tailor antibiotics to culture sensitivities. Blood and sputum cultures are pending. (2) Acute respiratory failure with hypoxia and hypercapnia: Code(s): J96.01 - Acute respiratory failure with hypoxia; J96.02 - Acute respiratory failure with hypercapnia Status: Acute Assessment and Plan: -the patient does have a history of interstitial lung disease. I did request for records from [facility] official court interpreter as well as his assistant golf professional at [facility]. -the patient is chronically on oxygen at 3 L per nasal cannula and has been wearing it /. The patient was still hypoxic on the 3 L. -the patient has a total whiteout of the left lung. With a large left pleural effusion and small right pleural effusion. I did place an order for thoracentesis. The patient stated that he has been compliant with his diuretics. -an echo has been ordered as well. Patient has cardiomegaly and pleural effusion. Patient is currently on a BiPAP which may help with some of the pulmonary edema. Continue with nebulizer treatments. -the patient is chronically on pain medication specifically methadone. Patient may have had hypo ventilation due to the use of the methadone. The patient was given nor can and he did wake up some with that. Hold narcotics for now. Continue with steroid 08/07/2022 interval history: currently patient is on BIPAP unable to provide any history, his present in the room has pulmonary disease seen at [facility], he was brought to ER with AMS changes and is found to have b/l pleural effusion and thoracentesis is scheduled for tomorrow, also block hacker has requested records from [facility], suspect patient has pneumonia and being treated with levofloxin, vancomycin, solumederol, and broncho dilator, patient is seen by block hacker and appreciate. (3) Atrial fibrillation: Code(s): I48.91 - Unspecified atrial fibrillation Status: Acute Assessment and Plan: -the patient is already on anticoagulation and he is rate controlled. (4) Hyperlipidemia: Code(s): E78.5 - Hyperlipidemia, unspecified Status: Acute Assessment and Plan: -continue with atorvastatin (5) Hyperammonemia: Code(s): E72.20 - Disorder of urea cycle metabolism, unspecified Status: Acute Assessment and Plan: The patient was started on lactulose. Recheck ammonia levels in the a.m.. (6) Encephalopathy: Code(s): G93.40 - Encephalopathy, unspecified Status: Acute Assessment and Plan: Could be related to the hypoxia and hypercapnia. Could also be related to the narcotics. (7) Diabetes mellitus: Code(s): E11.9 - Type 2 diabetes mellitus without complications Status: Acute Assessment and Plan: Hold his metformin as the patient was acidotic earlier. Will do Accu-Cheks with sliding scale insulin and hypoglycemic protocol. (8) Coronary artery disease: Code(s): I25.10 - Atherosclerotic heart disease of [place] coronary artery without angina pectoris Status: Acute Assessment and Plan: The patient has had several bypass grafts approximately 5 total. Continue with anticoagulation and atorvastatin Subjective Date/time seen: 08/07/22 15:35 Altered mental status HPI- Narrative: This is a 67-year-old male patient who has a history of chronic back pain and is on methadone.? He also has a history of coronary artery disease, interstitial lung disease and O2 dependence.? The patient initially had the oxygen
[2022-08-07 17:14] LABS: Glucose Point of Care 147 mg/dl (65-105)
--- NOTE | 2022-08-07 17:23 | PM.CNPUL ---
Assessment and Plan Assessment and plan (1) Pneumonia: Code(s): J18.9 - Pneumonia, unspecified organism Status: Acute Assessment and Plan: Bilat pneumonia with a large right pleural effusion that is partially loculated with dense pneumonia both sides He needs a thoracentesis, may have complicated effusion (2) Acute and chronic respiratory failure: Code(s): J96.20 - Acute and chronic respiratory failure, unspecified whether with hypoxia or hypercapnia Status: Acute Assessment and Plan: 08/07/2022? Patient with acute on chronic? hypoxemic and hypercarbic respiratory failure with admission blood gas of 7.32/75/74? on 100% non-rebreather. Etiology includes interstitial is lung disease with progression and or acute exacerbation, fluid overload, pneumonia, large left greater than right pleural effusion. (3) Pleural effusion: Code(s): J90 - Pleural effusion, not elsewhere classified Status: Acute Assessment and Plan: see above (4) Interstitial lung disease: Code(s): J84.9 - Interstitial pulmonary disease, unspecified Status: Acute Assessment and Plan: Patient is currently being treated with Solu-Medrol for possible interstitial lung disease exacerbation[facility] History of Present Illness History of Present Illness Consult date: 08/29/22 Requesting physician: Owen Hernández MD Chief complaint: Acute Respiratory Failure with Hypoxia Narrative: history obtained from his significant other Blanca Gonzalez, together 26 years, NEW: Tim Gonzalez is a 67 year old man with interstitial lung disease who is treated at [facility], managed by Dr Contreras, now uses O2 around the clock. He had several weeks of decreased responsiveness and increased shortness of breath over several weeks, with lethargy for a day before admission. He has severe CAD with peripheral arterial disease with a total of over 20 stents in various vessels. His most recent hospitalization was earlier this year for lower extremity stent. He started using O2 in October of 2021, was using with exertion and sleep. Over the last few weeks, he started using it all the time. He was sleeping? more and eating less. She reports she also thinks he is getting confused with his medication.He was only able to walk short distances in the house, becoming more confused. He was unresponsive on the day of admission with lowest saturation per EMS. When he arrived in the emergency department. getting confused with his medication. He did not wake up this morning so she tried to wake him at at 9 am this morning. ? She reports he was breathing but unresponsive. EMS reports patient was 77% on his 3 L NC so he was placed on nonrebreather. ? DATA 08/06/2022 EXAMINATION: CT chest high resolution wo or DATE: 08/06/2022 15:32 INDICATION: hypoxia TECHNIQUE: Computed tomography (CT) of the chest was performed without intravenous contrast, including high-resolution images of the lungs. Automated exposure control and iterative reconstruction technique were employed. The dose-length product was 510.76 mGy-cm. COMPARISON: 02/28/2022. X-ray chest, same date. FINDINGS: CHEST: Thoracic aorta: Mild ectasia and arch calcification. Lung parenchyma and airways: Centrilobular and groundglass opacities diffusely in the right lung and to a lesser extent in the aerated portions of the left upper lobe. Peripheral reticular opacities. Lingular and left lower lobe consolidation with air bronchograms and volume loss. Thoracic inlet, axillae and chest wall: No thyroid or soft tissue mass. No axillary lymphadenopathy. Mediastin
[2022-08-07] MEDS: dexmedeTOMIDine 400 MCG/100 ML 400 MCG/100 ML BAG 29.21 MCG IV CONT (21:46)
[2022-08-07 22:20] LABS: Alveolar/Arterial O2 Gradient 139.4 mmHg; Base Excess ABG 9.8 mEq/l (+/-2.0); Fractional Inspired Oxygen 35 %; HCO3 ABG 34.1 mEq/l (22.0-26.0); Oxygen Content ABG 14.5 %vol (16.0-22.0); Oxyhemoglobin 88.5 % THb (90.0-100.0); PO2 ABG 57.8 mmHg (80.0-100.0); PO2 FiO2 Ratio Arterial Blood 1.65 %; Total Hemoglobin 11.6 g/dL (12.0-18.0); pH ABG 7.498 (7.350-7.450)
[2022-08-07 22:22] LABS: Device BIPAP; Modified Allen's Test Pass; Site Drawn RIGHT RADIAL
[2022-08-07 22:23] LABS: Inspiratory Pressure 20 cmH2O
[2022-08-07 22:24] LABS: Expiratory Pressure 6 cmH2O
[2022-08-07 23:19] LABS: Glucose Point of Care 233 mg/dl (65-105)
--- NOTE | 2022-08-07 23:28 | P.PNCROSS_ITS ---
Event Note Event Note Event Note: 08/07/2021 at 22:00 Nursing staff as needed, evaluate the patient. The patient had developed increasing respiratory distress with respiratory rate of 35 and heart rate of 120. The patient was stating he could not breathe and was stating that he just wanted to . However the patient has been intermittent Odette hallucinating all day both auditory and visual hallucinations. When I went into the room the patient was talking rapidly but content of his thoughts was nonsensical. Patient markedly decreased breath sounds on the left and coarse crackles on the right with accessory muscle use. The patient had some abdominal respirations. BiPAP was in place. Patient was pulling adequate tidal volumes. A stat ABG was performed and the patient's chart was reviewed. The patient is awaiting thoracentesis but could not be performed due to patient receiving Plavix. The patient is a of prior ABGs had been improving compared to baseline. I was preparing to call the sales representative meats to discuss the patient's case and I had ordered 1 dose of IV morphine as the patient takes methadone at home. At that the some of the patient's tachycardia and distress could have been due to withdrawal from opiates. However after respiratory therapy sharon the patient's ABG the patient fell asleep soundly. Once patient fell asleep his heart rate normalized to the 70s and his respiratory rate went back down to 18. ABG was reviewed with pH of 7.49, pCO2 of 45 PO2 of 57 with a measures O2 sat that correlated with ABG result of 92%. Subsequently the morphine order was canceled. 30 minutes was spent in critical care activities Due to a high probability of clinically significant, life threatening deterioration, the patient required my highest level of preparedness to intervene emergently and I personally spent this critical care time directly and personally managing the patient. This critical care time included obtaining a history; examining the patient; pulse oximetry; ordering and review of studies; arranging urgent treatment with development of a management plan; evaluation of patient's response to treatment; frequent reassessment; and discussions with other providers. It was exclusive of separately billable procedures and treating other patients and teaching time. Please see Assessment and Plan section and the rest of the note for further information on patient assessment and treatment.
[2022-08-08] VITALS (41 sets, daily range): BP systolic 126–166; BP diastolic 56–83; PULSE 65–775; RESP 13–30; TEMP 36.1–37.1; O2SAT 93–100; BMI 23.1
--- NOTE | 2022-08-08 | ECHO_ITS ---
Patient Info Name: Tim Gonzalez Age: 67 years : 1955 Gender: Male Ht: 70 in Wt: 161 lbs BSA: 1.90 m2 HR: 70 bpm BP: 160 / 74 mmHg Heart Rhythm: Sinus Rhythm Technical Quality: Fair Exam Date: 08/08/2022 7:50 AM Exam Location: [facility] Patient Status: Inpatient Admit Date: 08/06/2022 Staff Ordering Physician: Nisha Holly NP Brand Advisor: Jacki Rollins RDCS Attending Provider: Ancelmo Murillo MD Referring Physician: Avni PERRY; Exam Type: CA echo doppler color flow Study Info Indications - sob Complete two-dimensional, color flow and Doppler transthoracic echocardiogram is performed. Summary 1. Complete two-dimensional, color flow and Doppler transthoracic echocardiogram is performed. 2. Left ventricular chamber dimension is normal. 3. Left ventricular systolic function is severely reduced, estimated at 30-35%. 4. There is moderately increased left ventricular wall thickness. 5. The left ventricular diastolic function is abnormal. 6. Left atrial chamber dimension is mildly enlarged. 7. The aortic valve is possibly bicuspid. 8. There is mild to moderate aortic valve regurgitation. 9. Cannot rule out aortic valve vegetation visualized. 10. There is severe aortic valve calcification. 11. There is mild aortic valve stenosis with a peak velocity of 200 cm/s, mean gradient of 7 mmHg, and aortic valve area of 1.7 cm2. 12. The mitral valve has thickened leaflets. 13. There is mild mitral valve regurgitation. 14. There is mild tricuspid valve regurgitation. 15. Moderate pulmonary hypertension, estimated pulmonary arterial systolic pressure is 55 mmHg. Left Ventricle Left ventricular chamber dimension is normal. Left ventricular systolic function is severely reduced, estimated at 30-35%. There is moderately increased left ventricular wall thickness. The left ventricular diastolic function is abnormal. Right Ventricle Right ventricular chamber dimension is normal. Right ventricular systolic function is normal. Left Atria Left atrial chamber dimension is mildly enlarged. Right Atria Right atrial chamber dimension is normal. Atrial Septum Intact interatrial septum visualized by color flow imaging. Aortic Valve The aortic valve is possibly bicuspid. There is mild to moderate aortic valve regurgitation. There is mild aortic valve stenosis with a peak velocity of 200 cm/s, mean gradient of 7 mmHg, and aortic valve area of 1.7 cm2. Cannot rule out aortic valve vegetation visualized. There is severe aortic valve calcification. Pulmonic Valve The pulmonic valve is normal. There is no pulmonic valve stenosis. There is trace pulmonic regurgitation. Mitral Valve The mitral valve has thickened leaflets. There is no mitral valve stenosis. There is mild mitral valve regurgitation. Tricuspid Valve The tricuspid valve leaflets are normal. There is no significant tricuspid valve stenosis. There is mild tricuspid valve regurgitation. Moderate pulmonary hypertension, estimated pulmonary arterial systolic pressure is 55 mmHg. Pericardium/Pleural The pericardium appears normal. There is trivial pericardial effusion. Inferior Vena Cava Dilated inferior vena cava with <50% collapse upon inspiration consistent with elevated right atrial pressure, 10 mmHg. Aorta The aortic root size at the sinus of Valsalva is normal. There is mild aortic atherosclerosis. Left Ventricular Outflow Tract ---------
[2022-08-08] MEDS: dexmedeTOMIDine 400 MCG/100 ML 400 MCG/100 ML BAG 25.32 MCG IV CONT (01:28)
[2022-08-08] MEDS: MORPHINE SULFATE (*CRX) 4 MG/ML INJ IV PUSH (03:36)
[2022-08-08] MEDS: dexmedeTOMIDine 400 MCG/100 ML 400 MCG/100 ML BAG 27.27 MCG IV CONT (05:29)
[2022-08-08] MEDS: INSULIN ASPART (*BKC) 100 UNITS/ML SUB-Q ×3 (05:32→22:59)
[2022-08-08] MEDS: methylPREDNISolone SOD SUCC 125 MG VIAL 60 MG IV PUSH ×2 (05:32→11:56)
[2022-08-08 05:36] LABS: Alveolar/Arterial O2 Gradient 92.5 mmHg; Base Excess ABG 18.2 mEq/l (+/-2.0); Carboxyhemoglobin 0.1 % THb (0-2.0); Fractional Inspired Oxygen 30 %; HCO3 ABG 42.2 mEq/l (22.0-26.0); Methemoglobin ABG 0.5 %THb (0-1.5); Oxygen Content ABG 14.6 %vol (16.0-22.0); Oxygen Saturation ABG 95.5 % (95.0-100.0); Oxyhemoglobin 92.6 % THb (90.0-100.0); PO2 ABG 67.4 mmHg (80.0-100.0); PO2 FiO2 Ratio Arterial Blood 2.25 %; Reduced Hemoglobin 6.8 %THb (0-5.0); Total Hemoglobin 11.2 g/dL (12.0-18.0)
[2022-08-08 05:40] LABS: Glucose Point of Care 230 mg/dl (65-105)
[2022-08-08 05:41] LABS: Modified Allen's Test Pass; Site Drawn RIGHT BRACHIAL
[2022-08-08 05:42] LABS: Device BIPAP; Expiratory Pressure 6 cmH2O; Inspiratory Pressure 20 cmH2O
[2022-08-08 07:30] LABS: Alanine Aminotransferase 91 U/L (6-50); Albumin Level 3.2 g/dL (3.5-5.1); Alkaline Phosphatase 81 U/L (38-126); Aspartate Amino Transferase 298 U/L (17-59); Bilirubin,Total 1.4 mg/dL (0.2-1.3); Blood Urea Nitrogen 44 mg/dL (9-20); Calcium 8.2 mg/dL (8.4-10.2); Carbon Dioxide > 40 mmol/L (22-30); Chloride 83 mmol/L (98-107); Estimated CRCL calculation 67 ml/min; Estimated Glomerular Filt Rate > 60; Glucose 198 mg/dL (65-110); Magnesium 1.6 mg/dL (1.6-2.3); Potassium 3.8 mmol/L (3.4-5.0); Sodium 130 mmol/L (137-145)
[2022-08-08 07:47] LABS: Vancomycin Trough 17.3 ug/mL (10.0-20.0)
--- NOTE | 2022-08-08 08:17 | PC.NURSE ---
Precedex decreased to 0.6mcg/kg/hr per Dr. Hernández's order
--- NOTE | 2022-08-08 08:20 | PC.NURSE ---
Precedex drip paused per Dr. Hernández's order
[2022-08-08] MEDS: FUROSEMIDE INJ 40 MG/4 ML VIAL IV PUSH ×2 (08:35→14:59)
[2022-08-08 08:57] LABS: INR 2.8; Prothrombin Time 28.4 Seconds (11.1-14.7)
[2022-08-08 08:58] LABS: INR 2.9; NT Pro B Type Natriuretic Pept 32900 pg/mL (5-100); Prothrombin Time 29.1 Seconds (11.1-14.7)
[2022-08-08] MEDS: ATORVASTATIN 40 MG TABLET 80 MG PO (09:34)
[2022-08-08] MEDS: GABAPENTIN 300 MG CAPSULE PO ×4 (09:34→22:03)
[2022-08-08] MEDS: LACTULOSE 20 GM/30 ML UDC PO (09:34)
[2022-08-08] MEDS: VENLAFAXINE HCL XR 75 MG CAP.ER.24H 150 MG PO (09:34)
[2022-08-08] MEDS: PANTOPRAZOLE SODIUM IV 40 MG VIAL IV PUSH (09:34)
[2022-08-08] MEDS: TAMSULOSIN HCL 0.4 MG CAPSULE PO (09:35)
--- NOTE | 2022-08-08 10:28 | ECG_ITS ---
Measurements Intervals [place] Rate: 79 P: AK: 0 QRS: 6 QRSD: 124 T: 96 QT: 422 QTc: 486 Interpretive Statements ATRIAL FIBRILLATION INCOMPLETE LEFT BUNDLE BRANCH BLOCK DELAYED PRECORDIAL R/S TRANSITION VOLTAGE CRITERIA FOR LVH NONSPECIFIC ST & T-WAVE ABNORMALITY- HIGH LATERAL LEADS ABNORMAL ECG COMPARED TO ECG 08/06/2022 09:45:30 NO SIGNIFICANT CHANGES Electronically Signed On 08-08-2022 11:58:11 SAMPLING EXPERT by Julian Jones D.O.
--- NOTE | 2022-08-08 11:09 | WPDINTPN ---
Progress Note: A&P Assessment and Plan (1) Acute and chronic respiratory failure: Code(s): J96.20 - Acute and chronic respiratory failure, unspecified whether with hypoxia or hypercapnia Status: Acute Assessment and Plan: Acute on chronic hypoxic and hypercarbic Respiratory failure secondary to bilateral left more than right pleural effusion, pulmonary edema, possible pneumonia, baseline interstitial lung disease of unknown nature, toxic encephalopathy Patient on presentation was protecting his airway and is arousable on stimulation He has been placed on BiPAP and settings were changed to 20/5 FiO2. he tolerated Airvo for few hours yesterday and was placed back on BiPAP due to tachypnea I have pauses Precedex and will try again to place patient on Airvo once he is more awake Elevated CO2 on BMP despite elevated creatinine suggest chronic CO2 retention continue BiPAP p.r.n. and at night. change settings to 15/6 after reviewing a.m. ABG BNP elevated chest CT 1. Pulmonary opacities may reflect active interstitial lung disease, hypersensitivity pneumonitis, respiratory bronchiolitis, or atypical infection, with underlying chronic facial change. A component of mild interstitial edema may also be present. 2. Lingular and left lower lobe atelectasis/consolidation. Infection is not excluded. 3. Large left and small right pleural effusions.. continue Bronchodilators Lasix IV given in the ER and will be continued continue Empiric antibiotics for pneumonia although his procalcitonin is low and WBC has normalized Blood cultures have been sent and are negative till now IR consulted for ultrasound-guided thoracentesis for left pleural effusion. Case discussed with Dr. Turner. who requested FFP for INR of 2.9 to minimize risk of bleeding. patient has been off of Xarelto since admission. 2 units of FFP ordered. Will give additional dose of Lasix after FFP infusion patient has history of interstitial lung disease. discussed with Dr. Taveras from pulmonary. he will decrease the dose of Solu-Medrol May need intubation and mechanical ventilation if deteriorates further Echocardiogram done and report pending (2) Pulmonary edema: Code(s): J81.1 - Chronic pulmonary edema Status: Acute Assessment and Plan: See above (3) Interstitial lung disease: Code(s): J84.9 - Interstitial pulmonary disease, unspecified Status: Acute Assessment and Plan: See above (4) Pleural effusion: Code(s): J90 - Pleural effusion, not elsewhere classified Status: Acute Assessment and Plan: See above (5) Coronary artery disease: Code(s): I25.10 - Atherosclerotic heart disease of [place] coronary artery without angina pectoris Status: Acute Assessment and Plan: continue statin P.r.n. nitroglycerin resume anticoagulation after procedures (6) Diabetes mellitus: Code(s): E11.9 - Type 2 diabetes mellitus without complications Status: Acute Assessment and Plan: Sliding scale insulin (7) Elevated serum creatinine: Code(s): R79.89 - Other specified abnormal findings of blood chemistry Status: Acute Assessment and Plan: Patient creatinine is 1.4 which is improved to normal range continue Lasix today Monitor urine output electrolytes and creatinine Ambriz placed for accurate urine output monitoring (8) Hyperammonemia: Code(s): E72.20 - Disorder of urea cycle metabolism, unspecified Status: Acute Assessment and Plan: Ammonia slightly elevated but unlikely to explain change in mental status Monitor level which has normalized this more Lactulose will be continued but will decrease the dose (9) Encephalopathy: Code(s): G93.40 - Encephalopathy, unspecified Status: Acute Assessment and Plan: Likely toxic metabolic encephalopathy as patient is on methadone, mildly elevated CO2, mildly elevated ammonia level
[2022-08-08 11:53] LABS: Glucose Point of Care 217 mg/dl (65-105)
[2022-08-08] MEDS: SODIUM CHLORIDE 0.9% IV 250 ML 30 ML IV CONT (11:55)
--- NOTE | 2022-08-08 12:05 | PM.PNPUL ---
Progress Note: A&P Assessment and Plan (1) Acute and chronic respiratory failure: Code(s): J96.20 - Acute and chronic respiratory failure, unspecified whether with hypoxia or hypercapnia Status: Acute Assessment and Plan: 08/07/2022 Patient with acute on chronic hypoxemic and hypercarbic respiratory failure with admission blood gas of 7.32/75/74 on 100% non-rebreather. Etiology includes interstitial is lung disease with progression and or acute exacerbation, fluid overload, pneumonia, large left greater than right pleural effusion. 08/08/2022 Patient has been treated with BiPAP. His last blood gas on BiPAP with a rate of 20, pressures 20/6 and 40% was 7.58/46/67. He is currently on high-flow nasal cannula 60 L 35% FiO2 with saturations 94%. Would continue high-flow as tolerated at this time. Patient is currently being treated with Solu-Medrol for possible interstitial lung disease exacerbation and I will decrease from 60 Q 6-30 Q 6 today. Patient is being diuresed with Lasix and is currently -3 0.2 L since admission. Patient is empirically being treated for pneumonia with vancomycin and Levaquin both of which were started on 08/06/2022. Patient is right for ox a band for his AFib has been held and his last dose was 1 6 at 3:00 p.m.. Repeat INR today is 1.9. Will discuss this level with Radiology team performing thoricentesis. (2) Interstitial lung disease: Code(s): J84.9 - Interstitial pulmonary disease, unspecified Status: Acute Assessment and Plan: 08/08 Patient is currently being treated with Solu-Medrol for possible interstitial lung disease exacerbation and I will decrease from 60 Q 6 to 30 Q 6 today. Records from [facility] requested (3) Coronary artery disease: Code(s): I25.10 - Atherosclerotic heart disease of [place] coronary artery without angina pectoris Status: Acute Assessment and Plan: Patient with a history of congestive heart failure, coronary artery disease, atrial fibrillation on rivaroxan. Currently being diuresed with Lasix 40 IV q.day today. Echocardiogram ordered for today. records from [facility] requested. Subjective Date/time seen: 08/08/22 12:05 Interval history: 08/07/2022 Consult date: 01/08/23 Requesting physician: Owen Hernández MD Chief complaint: Acute Respiratory Failure with Hypoxia Narrative: NEW:? Tim Gonzalez is a 67 year old man with interstitial lung disease who is treated at [facility], takes Esbreit, uses O2 around the clock. He was less responsive and more short of breath, required O2 around the clock in the last few weeks. decreased responsiveness.? Patient's lives with nurse practitioner physicians assistant partner. ? She states that patient has had increasing shortness of breath and lethargy for several weeks.? She states that he has started requiring oxygen all the time for several weeks and he is sleeping? more and eating less. She reports she also thinks he is getting confused with his medication. Yesterday was a good day per family. She last talked to him at 6 pm yesterday and he seemed fine.? ? He was in bed asleep last night at 930 pm when she arrived home. He did not wake up this morning so she tried to wake him at at 9 am this morning. ? She reports he was breathing but unresponsive. EMS reports patient was 77% on his 3 L NC so he was placed on nonrebreather. 08/08/2022 spoke with the at bedside. She tells me a few months ago the patient had a left pleural effusion and the pulmonary physicians started the patient on prednisone 5 mg a day but did not do a thoracentesis at that time. Patient has improved. He is on Precedex but is awake and more alert and communicative. He is now on high-flow nasal cannula 60 L 35% FiO2 with saturations 94%. His INR is 1.9, his creatinine is 1.0. he is diuresed 3.2 L since admission to the hospital. DATA 08/06/2022 EXAMINATION: CT chest high resolution wo co DATE:
[2022-08-08 16:00] LABS: Appearance Pleural Fluid Cloudy (Clear); Color Pleural Fluid Red (Colorless); Pleural fluid source Pleural fluid
[2022-08-08 16:01] LABS: Lymphocytes Pleural Fluid 50 %; Macrophages Pleural Fluid 30 %; Mesothelial Cells Pleural Flui 3 %; Monocytes Pleural Fluid 4 %; Neutrophils Pleural Fluid 13 % (0-25); Nucleated Cell Pleural Fluid 1641 /uL (0-1000); RBC Pleural Fluid 11731 /uL (0-0)
--- NOTE | 2022-08-08 16:28 | PM.IMPN ---
Progress Note: A&P Assessment and Plan (1) Pneumonia: Code(s): J18.9 - Pneumonia, unspecified organism Status: Acute Assessment and Plan: CT scan shows pulmonary opacities which could be the interstitial lung disease hypersensitivity pneumonitis respiratory bronchiolitis or atypical infection. The patient's was started on Levaquin and vancomycin was added as per antibiotic stewardship. -the patient is currently on a BiPAP. Patient has hypoxia and hypercapnia. Tailor antibiotics to culture sensitivities. Blood and sputum cultures are pending. (2) Acute respiratory failure with hypoxia and hypercapnia: Code(s): J96.01 - Acute respiratory failure with hypoxia; J96.02 - Acute respiratory failure with hypercapnia Status: Acute Assessment and Plan: -the patient does have a history of interstitial lung disease. I did request for records from [facility] stacker straightener as well as his oracle consultant at [facility]. -the patient is chronically on oxygen at 3 L per nasal cannula and has been wearing it /. The patient was still hypoxic on the 3 L. -the patient has a total whiteout of the left lung. With a large left pleural effusion and small right pleural effusion. I did place an order for thoracentesis. The patient stated that he has been compliant with his diuretics. -an echo has been ordered as well. Patient has cardiomegaly and pleural effusion. Patient is currently on a BiPAP which may help with some of the pulmonary edema. Continue with nebulizer treatments. -the patient is chronically on pain medication specifically methadone. Patient may have had hypo ventilation due to the use of the methadone. The patient was given nor can and he did wake up some with that. Hold narcotics for now. Continue with steroid 08/08/2022 interval history: currently patient is on AERVO and somnolent unable to provide any history, his present in the room has pulmonary disease seen at [facility], he was brought to ER with AMS changes and is found to have b/l pleural effusion and patient had thoracentesis today yielding 850 mL of serosanguineous fluid. labs are pending and further recommendation to follow, also hot blaster has requested records from [facility], suspect patient has pneumonia and being treated with levofloxin, vancomycin, solumederol, and broncho dilator, patient is seen by hot blaster and appreciate. (3) Atrial fibrillation: Code(s): I48.91 - Unspecified atrial fibrillation Status: Acute Assessment and Plan: -the patient is already on anticoagulation and he is rate controlled. (4) Hyperlipidemia: Code(s): E78.5 - Hyperlipidemia, unspecified Status: Acute Assessment and Plan: -continue with atorvastatin (5) Hyperammonemia: Code(s): E72.20 - Disorder of urea cycle metabolism, unspecified Status: Acute Assessment and Plan: The patient was started on lactulose. Recheck ammonia levels in the a.m.. (6) Encephalopathy: Code(s): G93.40 - Encephalopathy, unspecified Status: Acute Assessment and Plan: Could be related to the hypoxia and hypercapnia. Could also be related to the narcotics. (7) Diabetes mellitus: Code(s): E11.9 - Type 2 diabetes mellitus without complications Status: Acute Assessment and Plan: Hold his metformin as the patient was acidotic earlier. Will do Accu-Cheks with sliding scale insulin and hypoglycemic protocol. (8) Coronary artery disease: Code(s): I25.10 - Atherosclerotic heart disease of [place] coronary artery without angina pectoris Status: Acute Assessment and Plan: The patient has had several bypass grafts approximately 5 total. Continue with anticoagulation and atorvastatin Subjective Date/time seen: 08/08/22 16:28 08/08/2022 interval history: currently patient is on AERVO and somnolent unable to provide any history, his present in the room has pulmonary disease seen at [facility]
[2022-08-08] MEDS: methylPREDNISolone SOD SUCC 40 MG VIAL 30 MG IV PUSH (16:50)
[2022-08-08 16:55] LABS: Glucose Point of Care 155 mg/dl (65-105)
[2022-08-08 21:36] LABS: Glucose Point of Care 282 mg/dl (65-105)
[2022-08-09] VITALS (21 sets, daily range): BP systolic 114–166; BP diastolic 56–76; PULSE 78–101; RESP 11–20; TEMP 36.2–37.1; O2SAT 95–100
[2022-08-09] MEDS: methylPREDNISolone SOD SUCC 40 MG VIAL 30 MG IV PUSH ×3 (00:30→17:07)
--- NOTE | 2022-08-09 02:38 | PC.NURSE ---
2310 Patient placed on bipap at ordered settings. tolerating well 0045 Patient complains of nausea and requesting to have bipap off. RT in room with patinet. Placed back on airvo at previous settings.
[2022-08-09 04:44] LABS: Hematocrit 34.2 % (42.0-52.0); Hemoglobin 10.7 g/dL (14.0-18.0); Mean Corpuscular HGB Conc 31.3 g/dl (32-36); Mean Corpuscular Hemoglobin 25.5 pg (26-34); Mean Corpuscular Volume 81.4 fl (80-100); Mean Platelet Volume 9.7 fl (7.4-10.4); Platelet Count Result 279 k/mm3 (150-375); Red Cell Distribution Width 17.8 % (11.5-14.5); White Blood Count 24.6 K/mm3 (4.5-10.0)
[2022-08-09 05:05] LABS: Alanine Aminotransferase 97 U/L (6-50); Albumin Level 3.3 g/dL (3.5-5.1); Alkaline Phosphatase 96 U/L (38-126); Aspartate Amino Transferase 166 U/L (17-59); Bilirubin,Total 1.6 mg/dL (0.2-1.3); Blood Urea Nitrogen 35 mg/dL (9-20); Calcium 8.2 mg/dL (8.4-10.2); Carbon Dioxide > 40 mmol/L (22-30); Chloride 77 mmol/L (98-107); Estimated CRCL calculation 74 ml/min; Estimated Glomerular Filt Rate > 60; Glucose 220 mg/dL (65-110); Magnesium 1.4 mg/dL (1.6-2.3); Potassium 2.8 mmol/L (3.4-5.0); Sodium 133 mmol/L (137-145)
[2022-08-09] MEDS: MAGNESIUM SULF 2 GM/WATER 50ML 2 GM/50 ML BAG IVPB (07:33)
[2022-08-09] MEDS: POTASSIUM CHLORIDE 20 MEQ TABLET 80 MEQ PO (07:34)
[2022-08-09] MEDS: NITROGLYCERIN SL 0.4 MG TABLET SUBLINGUAL (07:35)
[2022-08-09 07:55] LABS: Glucose Point of Care 215 mg/dl (65-105)
--- NOTE | 2022-08-09 08:25 | ECG_ITS ---
Measurements Intervals [place] Rate: 92 P: NM: 0 QRS: 181 QRSD: 127 T: 101 QT: 425 QTc: 527 Interpretive Statements ATRIAL FIBRILLATION VENTRICULAR PREMATURE COMPLEX CONSIDER LIMB LEAD REVERSAL INTRAVENTRICULAR CONDUCTION DELAY DELAYED PRECORDIAL R/S TRANSITION POSSIBLE LEFT VENTRICULAR HYPERTROPHY ABNORMAL ECG COMPARED TO ECG 08/08/2022 10:37:13 NO SIGNIFICANT CHANGES Electronically Signed On 08-09-2022 9:01:39 STATE HISTORICAL SOCIETY DIRECTOR by Julian Jones D.O.
[2022-08-09] MEDS: acetaZOLAMIDE SODIUM FOR INJ 500 MG VIAL 250 MG IV PUSH (09:08)
[2022-08-09] MEDS: INSULIN ASPART (*BKC) 100 UNITS/ML SUB-Q ×4 (09:08→23:52)
[2022-08-09] MEDS: ATORVASTATIN 40 MG TABLET 80 MG PO (09:09)
[2022-08-09] MEDS: GABAPENTIN 300 MG CAPSULE PO ×4 (09:09→21:02)
[2022-08-09] MEDS: WATER, STERILE FOR INJECTION 10 ML VIAL XX (09:09)
[2022-08-09] MEDS: TAMSULOSIN HCL 0.4 MG CAPSULE PO (09:10)
[2022-08-09] MEDS: PANTOPRAZOLE SODIUM IV 40 MG VIAL IV PUSH (09:10)
[2022-08-09] MEDS: VENLAFAXINE HCL XR 75 MG CAP.ER.24H 150 MG PO (09:10)
[2022-08-09] MEDS: LACTULOSE 20 GM/30 ML UDC PO (09:10)
--- NOTE | 2022-08-09 09:32 | PM.PNPUL ---
Progress Note: A&P Assessment and Plan (1) Acute and chronic respiratory failure: Code(s): J96.20 - Acute and chronic respiratory failure, unspecified whether with hypoxia or hypercapnia Status: Acute Assessment and Plan: 08/07/2022 Patient with acute on chronic hypoxemic and hypercarbic respiratory failure with admission blood gas of 7.32/75/74 on 100% non-rebreather. Etiology includes interstitial is lung disease with progression and or acute exacerbation, fluid overload, pneumonia, large left greater than right pleural effusion. 08/08/2022 Patient has been treated with BiPAP. His last blood gas on BiPAP with a rate of 20, pressures 20/6 and 40% was 7.58/46/67. He is currently on high-flow nasal cannula 60 L 35% FiO2 with saturations 94%. Would continue high-flow as tolerated at this time. Patient is currently being treated with Solu-Medrol for possible interstitial lung disease exacerbation and I will decrease from 60 Q 6-30 Q 6 today. Patient is being diuresed with Lasix and is currently -3 0.2 L since admission. Patient is empirically being treated for pneumonia with vancomycin and Levaquin both of which were started on 08/06/2022. Patient is right for ox a band for his AFib has been held and his last dose was 08/05 at 3:00 p.m.. Repeat INR today is 1.9. Will discuss this level with Radiology team performing thoricentesis. 08/09 patient has improved and he states that he is 60% back to normal. Patient wore the BiPAP for approximately 1 hour last night and tolerated it poorly. Currently the patient is on high-flow nasal cannula 60 L 30% FiO2 with saturations 100%. Will attempt to change patient to conventional nasal cannula oxygen today. will attempt to keep patient on BiPAP through the night tonight. Discussed with Dr. Andersen (2) Interstitial lung disease: Code(s): J84.9 - Interstitial pulmonary disease, unspecified Status: Acute Assessment and Plan: 08/08 Patient is currently being treated with Solu-Medrol for possible interstitial lung disease exacerbation and I will decrease from 60 Q 6 to 30 Q 6 today. Records from [facility] hospital requested Left thoracentesis performed with 850 mL of serosanguineous fluid removed. Patient tells me that he got quite a bit of improvement after this fluid was removed. G stain showed few white blood cells and no organisms, pH was greater than 7.50, white blood cells 1641, neutrophils 13%, lymphocytes 50%, monocytes 4% macrophages 30%. 08/09 Chest x-ray today with stable small right and moderate left effusion, diffuse interstitial alveolar infiltrates throughout all lung m[place]on[place] and more predominant in the bases. Patient making good improvement, I will decrease his Solu-Medrol to 30 mg IV b.i.d. Patient is empirically being treated for pneumonia with vancomycin and Levaquin both of which were started on 08/06/2022, today is day 4. (3) Coronary artery disease: Code(s): I25.10 - Atherosclerotic heart disease of [place] coronary artery without angina pectoris Status: Acute Assessment and Plan: Patient with a history of congestive heart failure, coronary artery disease, atrial fibrillation on rivaroxan. Currently being diuresed with Lasix 40 IV q.day today. Echocardiogram ordered for today. Records from [facility] hospital requested. 08/09 His white blood cell count is 24.6, his creatinine is 0.9, repeat BNP was 87720. Cumulatively he has diuresed 7.8 L. Acetazolamide 250 mg given by automatic line set up mechanic. Subjective Date/time seen: 08/09/22 09:32 Interval history: 08/07/2022 Consult date: 08/07/22 Requesting physician: Owen Hernández MD Chief complaint: Acute Respiratory Failure with Hypoxia Narrative: NEW:? Tim Gonzalez is a 67 year old man with interstitial lung disease who is treated at [facility] clinic, takes Esbreit, uses O2 around the clock. He was less responsive and more short of breath, required O2 around the clock in t
[2022-08-09 09:41] LABS: Troponin I 0.165 ng/mL (0.000-0.034)
[2022-08-09] MEDS: ONDANSETRON INJ 4 MG/2 ML VIAL IV PUSH ×2 (10:49→21:04)
[2022-08-09] MEDS: ASPIRIN 81 MG CHEWABLE TABLET PO (11:17)
[2022-08-09 11:21] LABS: Glucose Point of Care 352 mg/dl (65-105)
--- NOTE | 2022-08-09 11:22 | WPDINTPN ---
Progress Note: A&P Assessment and Plan (1) Acute and chronic respiratory failure: Code(s): J96.20 - Acute and chronic respiratory failure, unspecified whether with hypoxia or hypercapnia Status: Acute Assessment and Plan: Acute on chronic hypoxic and hypercarbic Respiratory failure secondary to bilateral left more than right pleural effusion, pulmonary edema, possible pneumonia, baseline interstitial lung disease of unknown etiology, toxic encephalopathy -Patient on presentation was protecting his airway and is arousable on stimulation -patient was placed on BiPAP alternating with Airvo. -did not tolerate BiPAP overnight due to nausea, was placed on Airvo. -ABGs this morning much improved -discussed with pulmonology, will place him on 3 L nasal cannula (this is what he uses at home), he will decrease steroids to 30 mg IV q.12 hours -Precedex was discontinued on 08/08/2022 -continue BiPAP p.r.n. and Airvo p.r.n. -patient has been receiving diuretics, will give Diamox today -continue levofloxacin and vancomycin -08/06/2022: Blood cultures are negative -08/08/2022: Left thoracentesis with removal of 850 mL of serosanguineous fluid, no organisms a white blood cell seen 08/06/2022 high-resolution chest CT 1. Pulmonary opacities may reflect active interstitial lung disease, hypersensitivity pneumonitis, respiratory bronchiolitis, or atypical infection, with underlying chronic facial change. A component of mild interstitial edema may also be present. 2. Lingular and left lower lobe atelectasis/consolidation. Infection is not excluded. 3. Large left and small right pleural effusions.. continue Bronchodilators 08/08/2022 Echocardiogram done and report pending (2) Pulmonary edema: Code(s): J81.1 - Chronic pulmonary edema Status: Acute Assessment and Plan: Patient has been receiving Lasix since admission -will give Diamox today (3) Interstitial lung disease: Code(s): J84.9 - Interstitial pulmonary disease, unspecified Status: Acute Assessment and Plan: Continue steroids, antibiotics supplemental oxygen (4) Pleural effusion: Code(s): J90 - Pleural effusion, not elsewhere classified Status: Acute Assessment and Plan: 08/08/2022 left thoracentesis with removal of 850 mL of fluid -organisms or white blood rina seen -cultures pending (5) Coronary artery disease: Code(s): I25.10 - Atherosclerotic heart disease of [place] coronary artery without angina pectoris Status: Acute Assessment and Plan: Continue atorvastatin, aspirin P.r.n. nitroglycerin Will resume rivaroxaban (6) Diabetes mellitus: Code(s): E11.9 - Type 2 diabetes mellitus without complications Status: Acute Assessment and Plan: Sliding scale insulin and Accu-Cheks (7) Elevated serum creatinine: Code(s): R79.89 - Other specified abnormal findings of blood chemistry Status: Acute Assessment and Plan: 08/06/2022: Patient presented with a creatinine of 1.4 on admission -continue diuresis -adequate urine output -creatinine down to 0.9 this more Monitor urine output electrolytes and creatinine (8) Hyperammonemia: Code(s): E72.20 - Disorder of urea cycle metabolism, unspecified Status: Acute Assessment and Plan: Ammonia slightly elevated but unlikely to explain change in mental status Monitor level which has normalized this more Lactulose will be continued but will decrease the dose (9) Encephalopathy: Code(s): G93.40 - Encephalopathy, unspecified Status: Acute Assessment and Plan: IMPROVED Likely toxic metabolic encephalopathy as patient is on methadone, mildly elevated CO2, mildly elevated ammonia level Head CT was negative -off Precedex (10) Delirium: Code(s): R41.0 - Disorientation, unspecified Status: Acute Assessment and Plan: Improved Plan DVT prophylaxis: restart Xarel
--- NOTE | 2022-08-09 11:50 | PCFNICU ---
ICU Rounding Note: Pt current nutrition is Full liquids. Nutrition recommendation: Ensure Pudding once daily and Nutritional Ice cream once daily. Last recorded weight is 72.1 kg. Bowel Motility:No BM reported. Labs Reviewed:Glu 220, K 2.8,Alb 3.3,Hct 34.2,Hgb 10.7 Meds Noted:NovoLog, Lactulose, Solu Medrol, Protonix, Vancomycin. Skin: WNL Additional Notes: Patient has advanced to a full liquid diet. Some nausea reported at breakfast. Discussed diet supplements available with patient today. Patient starting on Ensure Pudding once daily providing 240 kcals and 12 gms protein and Nutritional Ice cream once daily providing an additional 300 kcals and 9 gms protein. Agree with diet orders. Following daily in ICU rounds.
[2022-08-09] MEDS: ALBUTEROL SULFATE NEB 2.5 MG/3 ML INH INHALATION ×3 (12:24→20:46)
[2022-08-09] MEDS: IPRATROPIUM BR 0.02% INH SOLN 0.5 MG/2.5 ML VIAL INHALATION ×2 (12:25→15:55)
[2022-08-09 13:07] LABS: Troponin I 0.153 ng/mL (0.000-0.034)
--- NOTE | 2022-08-09 13:12 | PCPTNOTE ---
Attempted PT evaluation, pt refused stating he just got back to bed. RN aware. Will follow.
--- NOTE | 2022-08-09 14:45 | PM.CNCAR ---
Assessment and Plan Assessment and plan (1) Cardiomyopathy: Code(s): I42.9 - Cardiomyopathy, unspecified Status: Acute (2) Acute respiratory failure with hypoxia and hypercapnia: Code(s): J96.01 - Acute respiratory failure with hypoxia; J96.02 - Acute respiratory failure with hypercapnia Status: Acute (3) Pneumonia: Code(s): J18.9 - Pneumonia, unspecified organism Status: Acute (4) Atrial fibrillation: Code(s): I48.91 - Unspecified atrial fibrillation Status: Acute (5) Hyperlipidemia: Code(s): E78.5 - Hyperlipidemia, unspecified Status: Acute (6) Pulmonary edema: Code(s): J81.1 - Chronic pulmonary edema Status: Acute (7) Pleural effusion: Code(s): J90 - Pleural effusion, not elsewhere classified Status: Acute (8) Coronary artery disease: Code(s): I25.10 - Atherosclerotic heart disease of [place] coronary artery without angina pectoris Status: Acute (9) Diabetes mellitus: Code(s): E11.9 - Type 2 diabetes mellitus without complications Status: Acute (10) Interstitial lung disease: Code(s): J84.9 - Interstitial pulmonary disease, unspecified Status: Acute Plan For his CAD, continue ASA 81mg and high-intensity statin. First two troponins are mildly elevated and flat. ECG without ischemic changes. Would give PRN SL NTG if he has any more chest pain. Will continue to monitor. He has known severe [place] MVCAD with patent MOJGAN and HUBBARD. For cardiomyopathy, since renal function has now normalized since admission, will start low-dose Entresto, Coreg, and Jardiance. For atrial fibrillation, patient has been rate-controlled during this admission. Continue Xarelto. Patient will follow-up with his primary Indirect Fire Infantryman (Dr. Chandra at [facility]) after hospital discharge. History of Present Illness History of Present Illness Consult date/time: 08/09/22 14:45 Requesting physician: Dev Benavides MD Consult reason: congestive heart failure Reason For Visit: Acute Respiratory Failure with Hypoxia Narrative: We are being consulted for new cardiomyopathy. This is a 67-year-old male with a known history of CAD s/p CABG/PCI, atrial fibrillation, PAD, hyperlipidemia, interstitial lung disease, methadone use, chronic hypoxic respiratory failure on home oxygen who presented to [facility] for shortness of breath and decreased responsiveness. Found with pleural effusions, underwent thoracentesis. He was admitted to our ICU for acute on chronic hypoxic respiratory failure requiring BIPAP. Currently being treated for interstitial lung disease exacerbation, and is on steroids for this. Was being treated for pneumonia as well. TTE done this admission showed LVEF 30-35%, mild-moderate aortic regurgitation, mild , mild MR, mild TR Patient's primary Indirect Fire Infantryman is Dr. Chandra at [facility]. Last saw Dr. Chandra in 05/2022. Patient previously had a preserved LVEF. His last cardiac cath showed severe [place] coronary artery disease with patent in-situ MOJGAN and HUBBARD (MOJGAN to the distal main stem of the RCA and HUBBARD to the distal LAD). Patient reported a 20 minute episode of stabbing sharp chest pain this morning, resolved with 1 SL NTG. Patient states he was feeling anxious beforehand, and that's what led to the chest pain. Troponins were checked which were mildly elevated at 0.165 followed by 0.153. EKG shows rate-controlled AFIB, IVCD, no ischemic changes. Unchanged compared to prior. At the time of my evaluation, patient is resting comfortably at bedside and denies any further chest pain. Reports his shortness of breath has improved since admission. No lower extremity edema. Review of Systems Review of Systems: 12-point ROS obtained. Negative, unless stated in HPI. [facility] Past Medical History Medical History Amputation toe left small toe Chronic anticoagulation Chronic pain
[2022-08-09] MEDS: EMPAGLIFLOZIN 10 MG TABLET PO (15:25)
[2022-08-09 15:45] LABS: Troponin I 0.139 ng/mL (0.000-0.034)
[2022-08-09 16:40] LABS: Glucose Point of Care 304 mg/dl (65-105)
--- NOTE | 2022-08-09 18:15 | PM.IMPN ---
Progress Note: A&P Assessment and Plan (1) Pneumonia: Code(s): J18.9 - Pneumonia, unspecified organism Status: Acute Assessment and Plan: CT scan shows pulmonary opacities which could be the interstitial lung disease hypersensitivity pneumonitis respiratory bronchiolitis or atypical infection. The patient's was started on Levaquin and vancomycin was added as per antibiotic stewardship. -the patient is currently on a BiPAP. Patient has hypoxia and hypercapnia. Tailor antibiotics to culture sensitivities. Blood and sputum cultures are pending. (2) Acute respiratory failure with hypoxia and hypercapnia: Code(s): J96.01 - Acute respiratory failure with hypoxia; J96.02 - Acute respiratory failure with hypercapnia Status: Acute Assessment and Plan: -the patient does have a history of interstitial lung disease. I did request for records from [facility] implementation engineer as well as his buggy ladle tender at [facility]. -the patient is chronically on oxygen at 3 L per nasal cannula and has been wearing it /. The patient was still hypoxic on the 3 L. -the patient has a total whiteout of the left lung. With a large left pleural effusion and small right pleural effusion. I did place an order for thoracentesis. The patient stated that he has been compliant with his diuretics. -an echo has been ordered as well. Patient has cardiomegaly and pleural effusion. Patient is currently on a BiPAP which may help with some of the pulmonary edema. Continue with nebulizer treatments. -the patient is chronically on pain medication specifically methadone. Patient may have had hypo ventilation due to the use of the methadone. The patient was given nor can and he did wake up some with that. Hold narcotics for now. Continue with steroid 08/09/2022 interval history: currently patient is on AIRVO and today patient is more alert and orient unable to provide detailed review of symptom however early this morning and complaint of chest pain, tropes were mildly elevated and flat, cardiac echo showed cardiomyopathy with ejection fraction of 25-30% will consult buggy ladle tender for further recommendation, on 05/07 his was present in the room, patient has pulmonary disease seen at [facility], he was brought to ER with AMS changes and is found to have b/l pleural effusion and patient had thoracentesis on 08/08 yielding 850 mL of serosanguineous fluid. labs are pending and culture no growth so far, and further recommendation to follow, also curriculum development specialist has requested records from [facility], suspect patient has pneumonia and being treated with levofloxin, vancomycin, solumederol, and broncho dilator, patient is seen by curriculum development specialist and appreciate. patient clinical symptoms have improved will move out of ICU to IMU today (3) Atrial fibrillation: Code(s): I48.91 - Unspecified atrial fibrillation Status: Acute Assessment and Plan: -the patient is already on anticoagulation and he is rate controlled. (4) Hyperlipidemia: Code(s): E78.5 - Hyperlipidemia, unspecified Status: Acute Assessment and Plan: -continue with atorvastatin (5) Hyperammonemia: Code(s): E72.20 - Disorder of urea cycle metabolism, unspecified Status: Acute Assessment and Plan: The patient was started on lactulose. Recheck ammonia levels in the a.m.. (6) Encephalopathy: Code(s): G93.40 - Encephalopathy, unspecified Status: Acute Assessment and Plan: Could be related to the hypoxia and hypercapnia. Could also be related to the narcotics. (7) Diabetes mellitus: Code(s): E11.9 - Type 2 diabetes mellitus without complications Status: Acute Assessment and Plan: Hold his metformin as the patient was acidotic earlier. Will do Accu-Cheks with sliding scale insulin and hypoglycemic protocol. (8) Coronary artery disease: Code(s): I25.10 - Atherosclerotic heart disease of [place] coronary artery without a
[2022-08-09] MEDS: SACUBITRIL/VALSARTAN 24-26 MG TABLET 1 TAB PO (21:02)
[2022-08-09] MEDS: ALPRAZolam (*CRX) 0.5 MG TABLET PO (21:04)
[2022-08-09] MEDS: carvediloL 6.25 MG TABLET PO (21:30)
[2022-08-09 23:37] LABS: Glucose Point of Care 327 mg/dl (65-105)
[2022-08-10] VITALS (19 sets, daily range): BP systolic 94–120; BP diastolic 51–64; PULSE 71–88; RESP 10–24; TEMP 36.4–37.1; O2SAT 93–100
[2022-08-10] MEDS: ALBUTEROL SULFATE NEB 2.5 MG/3 ML INH INHALATION ×4 (00:11→21:02)
[2022-08-10 04:53] LABS: Basophils Percent Auto 0.2 % (0.2-1.2); Eosinophils Percent Auto 0.1 % (0-4.4); Hematocrit 38.4 % (42.0-52.0); Hemoglobin 11.8 g/dL (14.0-18.0); Immature Granulocyte Absolute 0.19 K/mm3 (0.00-0.031); Immature Granulocyte Percent A 0.8 % (0-0.5); Lymphocytes Percent Auto 1.2 % (18.3-44.2); Mean Corpuscular HGB Conc 30.7 g/dl (32-36); Mean Corpuscular Hemoglobin 25.3 pg (26-34); Mean Corpuscular Volume 82.2 fl (80-100); Mean Platelet Volume 10.9 fl (7.4-10.4); Monocytes Absolute Auto 2.3 K/mm3 (0.1-0.6); Monocytes Percent Auto 9.4 % (2.6-8.5); Neutrophils Absolute Auto 21.9 K/mm3 (1.3-6.7); Neutrophils Percent Auto 88.3 % (45.5-73.1); Platelet Count Result 270 k/mm3 (150-375); Red Blood Count 4.67 M/mm3 (4.6-6.20); Red Cell Distribution Width 18.1 % (11.5-14.5); White Blood Count 24.8 K/mm3 (4.5-10.0)
[2022-08-10 05:19] LABS: Platelet Estimate Adequate (Adequate)
[2022-08-10 05:20] LABS: Alanine Aminotransferase 90 U/L (6-50); Albumin Level 3.2 g/dL (3.5-5.1); Alkaline Phosphatase 91 U/L (38-126); Anisocytosis 2+ (NORMAL); Aspartate Amino Transferase 99 U/L (17-59); Bilirubin,Total 0.9 mg/dL (0.2-1.3); Blood Urea Nitrogen 29 mg/dL (9-20); Calcium 8.6 mg/dL (8.4-10.2); Carbon Dioxide > 40 mmol/L (22-30); Chloride 88 mmol/L (98-107); Estimated CRCL calculation 73 ml/min; Estimated Glomerular Filt Rate > 60; Glucose 191 mg/dL (65-110); Hypochromasia 2+ (NORMAL); Macrocytosis 2+ (NORMAL); Microcytosis 2+ (NORMAL); Poikilocytosis 2+ (NORMAL); Potassium 3.7 mmol/L (3.4-5.0); Sodium 134 mmol/L (137-145)
[2022-08-10 05:21] LABS: Acanthocytes 1+ (NORMAL); Crenated RBC 2+ (NORMAL); Ovalocytes 1+ (NORMAL); Stomatocytes 1+ (NORMAL)
[2022-08-10 05:22] LABS: Schistocytes 1+ (NORMAL)
[2022-08-10] MEDS: methylPREDNISolone SOD SUCC 40 MG VIAL 30 MG IV PUSH (06:38)
[2022-08-10] MEDS: PANTOPRAZOLE SODIUM IV 40 MG VIAL IV PUSH (08:27)
[2022-08-10] MEDS: TAMSULOSIN HCL 0.4 MG CAPSULE PO (08:27)
[2022-08-10] MEDS: VENLAFAXINE HCL XR 75 MG CAP.ER.24H 150 MG PO (08:27)
[2022-08-10] MEDS: LACTULOSE 20 GM/30 ML UDC PO (08:27)
[2022-08-10] MEDS: EMPAGLIFLOZIN 10 MG TABLET PO (08:27)
[2022-08-10] MEDS: ASPIRIN 81 MG CHEWABLE TABLET PO (08:27)
[2022-08-10] MEDS: GABAPENTIN 300 MG CAPSULE PO ×4 (08:27→19:47)
[2022-08-10] MEDS: ATORVASTATIN 40 MG TABLET 80 MG PO (08:27)
[2022-08-10] MEDS: carvediloL 6.25 MG TABLET PO (08:28)
[2022-08-10] MEDS: SACUBITRIL/VALSARTAN 24-26 MG TABLET 1 TAB PO (08:28)
[2022-08-10] MEDS: INSULIN ASPART (*BKC) 100 UNITS/ML SUB-Q ×3 (08:33→16:41)
[2022-08-10 08:53] LABS: Glucose Point of Care 208 mg/dl (65-105)
--- NOTE | 2022-08-10 09:48 | PM.PNPUL ---
Progress Note: A&P Assessment and Plan (1) Acute and chronic respiratory failure: Code(s): J96.20 - Acute and chronic respiratory failure, unspecified whether with hypoxia or hypercapnia Status: Acute Assessment and Plan: 08/07/2022 Patient with acute on chronic hypoxemic and hypercarbic respiratory failure with admission blood gas of 7.32/75/74 on 100% non-rebreather. Etiology includes interstitial is lung disease with progression and or acute exacerbation, fluid overload, pneumonia, large left greater than right pleural effusion. 08/08/2022 Patient has been treated with BiPAP. His last blood gas on BiPAP with a rate of 20, pressures 20/6 and 40% was 7.58/46/67. He is currently on high-flow nasal cannula 60 L 35% FiO2 with saturations 94%. Would continue high-flow as tolerated at this time. Patient is currently being treated with Solu-Medrol for possible interstitial lung disease exacerbation and I will decrease from 60 Q 6-30 Q 6 today. Patient is being diuresed with Lasix and is currently -3 0.2 L since admission. Patient is empirically being treated for pneumonia with vancomycin and Levaquin both of which were started on 08/06/2022. Patient is right for ox a band for his AFib has been held and his last dose was 08/05 at 3:00 p.m.. Repeat INR today is 1.9. Will discuss this level with Radiology team performing thoricentesis. 08/09 patient has improved and he states that he is 60% back to normal. Patient wore the BiPAP for approximately 1 hour last night and tolerated it poorly. Currently the patient is on high-flow nasal cannula 60 L 30% FiO2 with saturations 100%. Will attempt to change patient to conventional nasal cannula oxygen today. will attempt to keep patient on BiPAP through the night tonight. 08/10 Patient continues to improve since states that he is 85-90% back to his normal. Patient wore 3 L nasal cannula overnight and did not wear the BiPAP and said he slept well. Patient is currently on 3 L with saturations 100% and has no shortness of breath at rest. His white blood cell count is 24.8. Chest x-ray small right and moderate left pleural effusion and no change in his diffuse interstitial alveolar infiltrates. Receive Solu-Medrol 30 mg this morning and will DC Solu-Medrol place him on prednisone 20 mg starting 08/11. Lasix 40 IV given. diuresed a total of 9.3 L since admission. Discussed with Dr. Benavides, will follow with you. (2) Interstitial lung disease: Code(s): J84.9 - Interstitial pulmonary disease, unspecified Status: Acute Assessment and Plan: 08/08 Patient is currently being treated with Solu-Medrol for possible interstitial lung disease exacerbation and I will decrease from 60 Q 6 to 30 Q 6 today. Records from [facility] hospital requested Left thoracentesis performed with 850 mL of serosanguineous fluid removed. Patient tells me that he got quite a bit of improvement after this fluid was removed. G stain showed few white blood cells and no organisms, pH was greater than 7.50, white blood cells 1641, neutrophils 13%, lymphocytes 50%, monocytes 4% macrophages 30%. pleural chemistries are pending. 08/09 Chest x-ray today with stable small right and moderate left effusion, diffuse interstitial alveolar infiltrates throughout all lung mccon[place] and more predominant in the bases. Patient making good improvement, I will decrease his Solu-Medrol to 30 mg IV b.i.d. Patient is empirically being treated for pneumonia with vancomycin and Levaquin both of which were started on 08/06/2022, today is day 4. 08/10 continue vancomycin Levaquin, today is day 5. Decrease to Solu-Medrol 30 mg q.day today and change to prednisone 20 mg p.o. on 08/11/2022 (3) Coronary artery disease: Code(s): I25.10 - Atherosclerotic heart disease of [place] coronary artery without angina pectoris Status: Acute Assessment and Plan: Patient with a history of congestive heart failure, coronary
--- NOTE | 2022-08-10 10:00 | PC.NURSE ---
Spoke with Dr. Negron regarding downgrade status of patient. New order that patient doesn't need telemetry. Pt can be downgraded to medical.
--- NOTE | 2022-08-10 11:00 | PC.NURSE ---
Dr. Ngeron notified that patient remains hypotensive after receiving Entresto and Coreg this AM. Pt's BP at time of medication administration was 106/53. Pt's BP started to drop and was down to 65/43. BP cuffed changed and BP remains low. Pt is dizzy with standing, but asymptomatic while sitting or lying. New order to stop Entresto and Coreg, give 250ml IVPB bolus now. Continue to monitor BP. Notify MD of any change in symptoms
[2022-08-10] MEDS: SODIUM CHLORIDE 0.9% IV 250 ML 100 ML IV CONT (11:06)
--- NOTE | 2022-08-10 11:07 | PM.PNCARD ---
Progress Note: A&P Assessment and Plan (1) Cardiomyopathy: Code(s): I42.9 - Cardiomyopathy, unspecified Status: Acute (2) Acute respiratory failure with hypoxia and hypercapnia: Code(s): J96.01 - Acute respiratory failure with hypoxia; J96.02 - Acute respiratory failure with hypercapnia Status: Acute (3) Atrial fibrillation: Code(s): I48.91 - Unspecified atrial fibrillation Status: Acute (4) Hyperlipidemia: Code(s): E78.5 - Hyperlipidemia, unspecified Status: Acute (5) Coronary artery disease: Code(s): I25.10 - Atherosclerotic heart disease of [place] coronary artery without angina pectoris Status: Acute (6) Diabetes mellitus: Code(s): E11.9 - Type 2 diabetes mellitus without complications Status: Acute (7) Interstitial lung disease: Code(s): J84.9 - Interstitial pulmonary disease, unspecified Status: Acute Plan For his CAD, continue ASA 81mg and high-intensity statin. For cardiomyopathy, continue with Jardiance. Will stop Entresto and Coreg due to hypotension. When BP improves, will try low dose ACEi/ARB and Metoprolol instead and see if he tolerates that. For atrial fibrillation, patient has been rate-controlled during this admission. Continue Xarelto. Patient will follow-up with his primary Receiving Dock Checker (Dr. Chandra at [facility]) after hospital discharge. Subjective Date/time seen: 08/10/22 11:07 Interval history: Reason for visit: Cardiomyopathy HPI: We are being consulted for new cardiomyopathy. This is a 67-year-old male with a known history of CAD s/p CABG/PCI, atrial fibrillation, PAD, hyperlipidemia, interstitial lung disease, methadone use, chronic hypoxic respiratory failure on home oxygen who presented to [facility] for shortness of breath and decreased responsiveness. Found with pleural effusions, underwent thoracentesis. He was admitted to our ICU for acute on chronic hypoxic respiratory failure requiring BIPAP. Currently being treated for interstitial lung disease exacerbation, and is on steroids for this. Was being treated for pneumonia as well. TTE done this admission showed LVEF 30-35%, mild-moderate aortic regurgitation, mild , mild MR, mild TR. Patient's primary Receiving Dock Checker is Dr. Chandra at [facility]. Last saw Dr. Chandra in 05/2022. Patient previously had a preserved LVEF. His last cardiac cath showed severe [place] coronary artery disease with patent in-situ MOJGAN and HUBBARD (MOJGAN to the distal main stem of the RCA and HUBBARD to the distal LAD). Patient reported a 20 minute episode of stabbing sharp chest pain this morning, resolved with 1 SL NTG. Patient states he was feeling anxious beforehand, and that's what led to the chest pain. Troponins were checked which were mildly elevated at 0.165 followed by 0.153. EKG shows rate-controlled AFIB, IVCD, no ischemic changes. Unchanged compared to prior.? At the time of my evaluation, patient is resting comfortably at bedside and denies any further chest pain. Reports his shortness of breath has improved since admission. No lower extremity edema. Date of service 08/10/2022: Patient got hypotensive overnight and this morning. Reports dizziness. Has not had any more chest pain. Review of Systems Review of Systems: 8-point ROS obtained. Negative, unless stated in HPI. Exam Const: General: comfortable and no acute distress HENMT: Mouth: Yes moist mucous membranes Eyes: General: appearance normal, both eyes and all related structures Neck: Neck: supple Resp: Effort & Inspection: normal respiratory effort Auscultation: diminished lung sounds Other: On supplemental oxygen Cardio: Rhythm: abnormal rhythm irregularly irregular Heart sounds: Murmur heart sound present diastolic GI: GI Palp: Yes Soft to palpation and No Tenderness to palpation present (GI) Skin: General skin exam: normal color Neuro: Speech: normal speech Extrem: General: no edema Psych: Mental Status: menta
[2022-08-10 11:37] LABS: Glucose Point of Care 202 mg/dl (65-105)
--- NOTE | 2022-08-10 11:42 | PM.IMPN ---
Progress Note: A&P Assessment and Plan (1) Pneumonia: Code(s): J18.9 - Pneumonia, unspecified organism Status: Acute Assessment and Plan: CT scan shows pulmonary opacities which could be the interstitial lung disease hypersensitivity pneumonitis respiratory bronchiolitis or atypical infection. The patient's was started on Levaquin and vancomycin was added as per antibiotic stewardship. -the patient is currently on a BiPAP. Patient has hypoxia and hypercapnia. Tailor antibiotics to culture sensitivities. Blood and sputum cultures are pending. (2) Acute respiratory failure with hypoxia and hypercapnia: Code(s): J96.01 - Acute respiratory failure with hypoxia; J96.02 - Acute respiratory failure with hypercapnia Status: Acute Assessment and Plan: -the patient does have a history of interstitial lung disease. I did request for records from [facility] payroll and benefits manager as well as his stewarding supervisor at [facility]. -the patient is chronically on oxygen at 3 L per nasal cannula and has been wearing it /. The patient was still hypoxic on the 3 L. -the patient has a total whiteout of the left lung. With a large left pleural effusion and small right pleural effusion. I did place an order for thoracentesis. The patient stated that he has been compliant with his diuretics. -an echo has been ordered as well. Patient has cardiomegaly and pleural effusion. Patient is currently on a BiPAP which may help with some of the pulmonary edema. Continue with nebulizer treatments. -the patient is chronically on pain medication specifically methadone. Patient may have had hypo ventilation due to the use of the methadone. The patient was given nor can and he did wake up some with that. Hold narcotics for now. Continue with steroid 08/10/2022 interval history: currently patient is on AIRVO and today patient is more alert and orient unable to provide detailed review of symptom however early this morning and complaint of chest pain, tropes were mildly elevated and flat, cardiac echo showed cardiomyopathy with ejection fraction of 25-30%, seen by stewarding supervisor tropes are mildly elevated and flat does not need any ischemic workup, patient blood pressure is soft, cardiology stopped Entersto and Coreg continue Jardiance, Patient with bilateral pleural effusion gently diurese the patient with Lasix 20 mg q.day, his was present in the room, patient has pulmonary disease seen at [facility], he was brought to ER with AMS changes and is found to have b/l pleural effusion and patient had thoracentesis on 08/08 yielding 850 mL of serosanguineous fluid. labs are pending and culture no growth so far, and further recommendation to follow, also chemistry account manager has requested records from [facility], seen by Dr. Taveras suspect patient has pneumonia and being treated with levofloxin, vancomycin, solumederol, and broncho dilator, patient is seen by chemistry account manager and appreciate. patient clinical symptoms have improved will move out of ICU to IMU today (3) Atrial fibrillation: Code(s): I48.91 - Unspecified atrial fibrillation Status: Acute Assessment and Plan: -the patient is already on anticoagulation and he is rate controlled. (4) Hyperlipidemia: Code(s): E78.5 - Hyperlipidemia, unspecified Status: Acute Assessment and Plan: -continue with atorvastatin (5) Hyperammonemia: Code(s): E72.20 - Disorder of urea cycle metabolism, unspecified Status: Acute Assessment and Plan: The patient was started on lactulose. Recheck ammonia levels in the a.m.. (6) Encephalopathy: Code(s): G93.40 - Encephalopathy, unspecified Status: Acute Assessment and Plan: Could be related to the hypoxia and hypercapnia. Could also be related to the narcotics. (7) Diabetes mellitus: Code(s): E11.9 - Type 2 diabetes mellitus without complications Status: Acute Assessment and Plan: Hold his metf
[2022-08-10 16:39] LABS: Glucose Point of Care 213 mg/dl (65-105)
[2022-08-10] MEDS: RIVAROXABAN 20 MG TABLET PO (16:42)
[2022-08-10] MEDS: ALPRAZolam (*CRX) 0.5 MG TABLET PO (19:47)
[2022-08-10 20:07] LABS: Glucose Point of Care 206 mg/dl (65-105)
[2022-08-10] MEDS: IPRATROPIUM BR 0.02% INH SOLN 0.5 MG/2.5 ML VIAL INHALATION (21:02)
[2022-08-10] MEDS: ONDANSETRON INJ 4 MG/2 ML VIAL IV PUSH (22:16)
[2022-08-11] VITALS (8 sets, daily range): BP systolic 109–115; BP diastolic 48–63; PULSE 72–88; RESP 12–16; TEMP 35.8–36.8; O2SAT 97–100
[2022-08-11] MEDS: ALBUTEROL SULFATE NEB 2.5 MG/3 ML INH INHALATION ×2 (00:09→06:18)
[2022-08-11 04:38] LABS: Hematocrit 39.2 % (42.0-52.0); Hemoglobin 11.8 g/dL (14.0-18.0); Mean Corpuscular HGB Conc 30.1 g/dl (32-36); Mean Corpuscular Hemoglobin 25.6 pg (26-34); Mean Platelet Volume 10.3 fl (7.4-10.4); Platelet Count Result 271 k/mm3 (150-375); Red Blood Count 4.61 M/mm3 (4.6-6.20); Red Cell Distribution Width 18.3 % (11.5-14.5); White Blood Count 19.5 K/mm3 (4.5-10.0)
[2022-08-11 05:00] LABS: Alanine Aminotransferase 87 U/L (6-50); Alkaline Phosphatase 93 U/L (38-126); Aspartate Amino Transferase 85 U/L (17-59); Blood Urea Nitrogen 38 mg/dL (9-20); Calcium 8.3 mg/dL (8.4-10.2); Carbon Dioxide > 40 mmol/L (22-30); Chloride 88 mmol/L (98-107); Estimated CRCL calculation 65 ml/min; Estimated Glomerular Filt Rate > 60; Glucose 194 mg/dL (65-110); Magnesium 1.8 mg/dL (1.6-2.3); Potassium 3.6 mmol/L (3.4-5.0); Sodium 133 mmol/L (137-145)
[2022-08-11] MEDS: IPRATROPIUM BR 0.02% INH SOLN 0.5 MG/2.5 ML VIAL INHALATION (06:18)
--- NOTE | 2022-08-11 06:30 | PC.NURSE ---
This patient, Tim Gonzalez, was transferred to [facility] on 08/11/22 at 0630. Personal belongings sent with patient. Report given to nurse. Appropriate documentation sent with patient.
--- NOTE | 2022-08-11 06:59 | PC.NURSE ---
Patient arrived to unit @ 0645. Patient resting comfortably with no complaints.
[2022-08-11 07:14] LABS: NT Pro B Type Natriuretic Pept 5450 pg/mL (19.9-100)
[2022-08-11 08:04] LABS: Glucose Point of Care 176 mg/dl (65-105)
--- NOTE | 2022-08-11 08:09 | PM.PNPUL ---
Progress Note: A&P Assessment and Plan (1) Acute and chronic respiratory failure: Code(s): J96.20 - Acute and chronic respiratory failure, unspecified whether with hypoxia or hypercapnia Status: Acute Assessment and Plan: 08/07/2022 Patient with acute on chronic hypoxemic and hypercarbic respiratory failure with admission blood gas of 7.32/75/74 on 100% non-rebreather. Etiology includes interstitial is lung disease with progression and or acute exacerbation, fluid overload, pneumonia, large left greater than right pleural effusion. 08/08/2022 Patient has been treated with BiPAP. His last blood gas on BiPAP with a rate of 20, pressures 20/6 and 40% was 7.58/46/67. He is currently on high-flow nasal cannula 60 L 35% FiO2 with saturations 94%. Would continue high-flow as tolerated at this time. Patient is currently being treated with Solu-Medrol for possible interstitial lung disease exacerbation and I will decrease from 60 Q 6-30 Q 6 today. Patient is being diuresed with Lasix and is currently -3 0.2 L since admission. Patient is empirically being treated for pneumonia with vancomycin and Levaquin both of which were started on 08/06/2022. Patient is right for ox a band for his AFib has been held and his last dose was 08/05 at 3:00 p.m.. Repeat INR today is 1.9. Will discuss this level with Radiology team performing thoricentesis. 08/09 patient has improved and he states that he is 60% back to normal. Patient wore the BiPAP for approximately 1 hour last night and tolerated it poorly. Currently the patient is on high-flow nasal cannula 60 L 30% FiO2 with saturations 100%. Will attempt to change patient to conventional nasal cannula oxygen today. will attempt to keep patient on BiPAP through the night tonight. 08/10 Patient continues to improve since states that he is 85-90% back to his normal. Patient wore 3 L nasal cannula overnight and did not wear the BiPAP and said he slept well. Patient is currently on 3 L with saturations 100% and has no shortness of breath at rest. His white blood cell count is 24.8. Chest x-ray small right and moderate left pleural effusion and no change in his diffuse interstitial alveolar infiltrates. Receive Solu-Medrol 30 mg this morning and will DC Solu-Medrol place him on prednisone 20 mg starting 08/11. Diuretics held for soft blood pressure. diuresed a total of 9.3 L since admission. 08/11 Patient continues to improve and states his breathing is 100% back to his normal. He remains weak though. His on 2 L nasal cannula saturations 98%. His white blood cell count is 19.5, his creatinine is 1.0. Cytology on the pleural fluid is negative. Chest x-ray today she shows left greater than right pleural effusion and diffuse interstitial alveolar infiltrates with no change. Diuretics held for soft blood pressure. Total diuresis -8 0.1 L since admission. BNP has improved to 5450. Patient is on 2 L nasal cannula which is improved from his baseline 3 L nasal cannula. I will check an overnight oximetry tonight on 2 L. patient remains stable overnight and can increase his activity will consider discharge home on 08/12/2022. Will follow with you. (2) Interstitial lung disease: Code(s): J84.9 - Interstitial pulmonary disease, unspecified Status: Acute Assessment and Plan: 08/08 Patient is currently being treated with Solu-Medrol for possible interstitial lung disease exacerbation and I will decrease from 60 Q 6 to 30 Q 6 today. Records from [facility] hospital requested Left thoracentesis performed with 850 mL of serosanguineous fluid removed. Patient tells me that he got quite a bit of improvement after this fluid was removed. G stain showed few white blood cells and no organisms, pH was greater than 7.50, white blood cells 1641, neutrophils 13%, lymphocytes 50%, monocytes 4% macrophages 30%. pleural chemistries are pending. 08/09 Chest x-ray today with stable small r
[2022-08-11] MEDS: predniSONE 20 MG TABLET PO (09:06)
[2022-08-11] MEDS: LACTULOSE 20 GM/30 ML UDC PO (09:06)
[2022-08-11] MEDS: ATORVASTATIN 40 MG TABLET 80 MG PO (09:06)
[2022-08-11] MEDS: ASPIRIN 81 MG CHEWABLE TABLET PO (09:06)
[2022-08-11] MEDS: GABAPENTIN 300 MG CAPSULE PO ×4 (09:07→21:16)
[2022-08-11] MEDS: EMPAGLIFLOZIN 10 MG TABLET PO (09:07)
[2022-08-11] MEDS: VENLAFAXINE HCL XR 75 MG CAP.ER.24H 150 MG PO (09:07)
[2022-08-11] MEDS: TAMSULOSIN HCL 0.4 MG CAPSULE PO (09:07)
[2022-08-11] MEDS: FUROSEMIDE INJ 40 MG/4 ML VIAL 20 MG IV PUSH (09:07)
[2022-08-11] MEDS: PANTOPRAZOLE SODIUM IV 40 MG VIAL IV PUSH (09:07)
[2022-08-11] MEDS: POTASSIUM CHLORIDE 20 MEQ TABLET 40 MEQ PO (09:12)
[2022-08-11 10:21] LABS: Vancomycin Trough 23.6 ug/mL (10.0-20.0)
--- NOTE | 2022-08-11 10:23 | PM.PNCARD ---
Progress Note: A&P Assessment and Plan (1) Cardiomyopathy: Code(s): I42.9 - Cardiomyopathy, unspecified Status: Acute (2) Acute respiratory failure with hypoxia and hypercapnia: Code(s): J96.01 - Acute respiratory failure with hypoxia; J96.02 - Acute respiratory failure with hypercapnia Status: Acute (3) Atrial fibrillation: Code(s): I48.91 - Unspecified atrial fibrillation Status: Acute (4) Hyperlipidemia: Code(s): E78.5 - Hyperlipidemia, unspecified Status: Acute (5) Coronary artery disease: Code(s): I25.10 - Atherosclerotic heart disease of [place] coronary artery without angina pectoris Status: Acute (6) Diabetes mellitus: Code(s): E11.9 - Type 2 diabetes mellitus without complications Status: Acute (7) Interstitial lung disease: Code(s): J84.9 - Interstitial pulmonary disease, unspecified Status: Acute Plan For his CAD, continue ASA 81mg and high-intensity statin. Entresto and Coreg stopped due to hypotension. When BP improves, will try low dose ACEi/ARB and Metoprolol instead and see if he tolerates that. For atrial fibrillation, patient has been rate-controlled during this admission. Continue Xarelto. Patient will follow-up with his primary Asphalt Mixer (Dr. Chandra at [facility]) after hospital discharge. Cardiology will sign off at this time. Please do not hesitate to contact us with any questions. Subjective Date/time seen: 08/11/22 10:23 Interval history: Reason for visit: Cardiomyopathy HPI: We are being consulted for new cardiomyopathy. This is a 67-year-old male with a known history of CAD s/p CABG/PCI, atrial fibrillation, PAD, hyperlipidemia, interstitial lung disease, methadone use, chronic hypoxic respiratory failure on home oxygen who presented to [facility] for shortness of breath and decreased responsiveness. Found with pleural effusions, underwent thoracentesis. He was admitted to our ICU for acute on chronic hypoxic respiratory failure requiring BIPAP. Currently being treated for interstitial lung disease exacerbation, and is on steroids for this. Was being treated for pneumonia as well. TTE done this admission showed LVEF 30-35%, mild-moderate aortic regurgitation, mild , mild MR, mild TR. Patient's primary Asphalt Mixer is Dr. Chandra at [facility]. Last saw Dr. Chandra in 05/2022. Patient previously had a preserved LVEF. His last cardiac cath showed severe [place] coronary artery disease with patent in-situ MOJGAN and HUBBARD (MOJGAN to the distal main stem of the RCA and HUBBARD to the distal LAD). Patient reported a 20 minute episode of stabbing sharp chest pain this morning, resolved with 1 SL NTG. Patient states he was feeling anxious beforehand, and that's what led to the chest pain. Troponins were checked which were mildly elevated at 0.165 followed by 0.153. EKG shows rate-controlled AFIB, IVCD, no ischemic changes. Unchanged compared to prior.? At the time of my evaluation, patient is resting comfortably at bedside and denies any further chest pain. Reports his shortness of breath has improved since admission. No lower extremity edema. Date of service 08/10/2022: Patient got hypotensive overnight and this morning. Reports dizziness. Has not had any more chest pain. Date of service 08/11/22: Feeling ok this morning. He has not had any recurrence of chest pain. Exam Const: General: comfortable and no acute distress HENMT: Mouth: Yes moist mucous membranes Eyes: General: appearance normal, both eyes and all related structures Neck: Neck: supple Resp: Effort & Inspection: normal respiratory effort Auscultation: diminished lung sounds Other: On supplemental oxygen Cardio: Rhythm: abnormal rhythm irregularly irregular Heart sounds: Murmur heart sound present diastolic Skin: General skin exam: normal color Neuro: Speech: normal speech Extrem: General: no edema Psych: Mental Status: mental status grossly norm
[2022-08-11 11:22] LABS: Glucose Point of Care 336 mg/dl (65-105)
[2022-08-11 11:28] LABS: Glucose Point of Care 340 mg/dl (65-105)
--- NOTE | 2022-08-11 11:43 | PM.IMPN ---
Progress Note: A&P Assessment and Plan (1) Pneumonia: Code(s): J18.9 - Pneumonia, unspecified organism Status: Acute Assessment and Plan: CT scan shows pulmonary opacities which could be the interstitial lung disease hypersensitivity pneumonitis respiratory bronchiolitis or atypical infection. The patient's was started on Levaquin and vancomycin was added as per antibiotic stewardship. -the patient is currently on a BiPAP. Patient has hypoxia and hypercapnia. Tailor antibiotics to culture sensitivities. Blood and sputum cultures are pending. (2) Acute respiratory failure with hypoxia and hypercapnia: Code(s): J96.01 - Acute respiratory failure with hypoxia; J96.02 - Acute respiratory failure with hypercapnia Status: Acute Assessment and Plan: -the patient does have a history of interstitial lung disease. I did request for records from [facility] delivery aide as well as his porcelain enamel sprayer at [facility]. -the patient is chronically on oxygen at 3 L per nasal cannula and has been wearing it /. The patient was still hypoxic on the 3 L. -the patient has a total whiteout of the left lung. With a large left pleural effusion and small right pleural effusion. I did place an order for thoracentesis. The patient stated that he has been compliant with his diuretics. -an echo has been ordered as well. Patient has cardiomegaly and pleural effusion. Patient is currently on a BiPAP which may help with some of the pulmonary edema. Continue with nebulizer treatments. -the patient is chronically on pain medication specifically methadone. Patient may have had hypo ventilation due to the use of the methadone. The patient was given nor can and he did wake up some with that. Hold narcotics for now. Continue with steroid 08/11/2022 interval history: currently patient is on AIRVO and today patient is more alert and orient unable to provide detailed review of symptom however early this morning and complaint of chest pain, tropes were mildly elevated and flat, cardiac echo showed cardiomyopathy with ejection fraction of 25-30%, seen by porcelain enamel sprayer tropes are mildly elevated and flat does not need any ischemic workup, patient blood pressure is soft, cardiology stopped Entersto and Coreg continue Jardiance, Patient with bilateral pleural effusion gently diurese the patient with Lasix 20 mg q.day, his is present in the room today patient ate his breakfast, worked with PT, , patient has pulmonary disease seen at [facility], he was brought to ER with AMS changes and is found to have b/l pleural effusion and patient had thoracentesis on 08/08 yielding 850 mL of serosanguineous fluid. labs are pending and culture no growth so far, and further recommendation to follow, also technical customer support specialist has requested records from [facility], seen by Dr. Taveras suspect patient has pneumonia and being treated with levofloxin, vancomycin, solumederol, and broncho dilator, patient is out of ICU now and on medical floor, patient will benefit going to acute rehab, (3) Atrial fibrillation: Code(s): I48.91 - Unspecified atrial fibrillation Status: Acute Assessment and Plan: -the patient is already on anticoagulation and he is rate controlled. (4) Hyperlipidemia: Code(s): E78.5 - Hyperlipidemia, unspecified Status: Acute Assessment and Plan: -continue with atorvastatin (5) Hyperammonemia: Code(s): E72.20 - Disorder of urea cycle metabolism, unspecified Status: Acute Assessment and Plan: The patient was started on lactulose. Recheck ammonia levels in the a.m.. (6) Encephalopathy: Code(s): G93.40 - Encephalopathy, unspecified Status: Acute Assessment and Plan: Could be related to the hypoxia and hypercapnia. Could also be related to the narcotics. (7) Diabetes mellitus: Code(s): E11.9 - Type 2 diabetes mellitus without complications Status: Acute Assessment and Pl
[2022-08-11] MEDS: INSULIN ASPART (*BKC) 100 UNITS/ML SUB-Q ×2 (12:03→16:50)
[2022-08-11 16:31] LABS: Glucose Point of Care 342 mg/dl (65-105)
[2022-08-11] MEDS: RIVAROXABAN 20 MG TABLET PO (16:50)
[2022-08-11 22:11] LABS: Glucose Point of Care 285 mg/dl (65-105)
[2022-08-12] VITALS (7 sets, daily range): BP systolic 132; BP diastolic 68; PULSE 85–105; RESP 16; TEMP 36.2; O2SAT 87–98
[2022-08-12] MEDS: ALPRAZolam (*CRX) 0.5 MG TABLET PO (01:36)
[2022-08-12 08:13] LABS: Glucose Point of Care 278 mg/dl (65-105)
[2022-08-12] MEDS: ATORVASTATIN 40 MG TABLET 80 MG PO (08:34)
[2022-08-12] MEDS: predniSONE 20 MG TABLET PO (08:34)
[2022-08-12] MEDS: LACTULOSE 20 GM/30 ML UDC PO (08:34)
[2022-08-12] MEDS: EMPAGLIFLOZIN 10 MG TABLET PO (08:34)
[2022-08-12] MEDS: ASPIRIN 81 MG CHEWABLE TABLET PO (08:34)
[2022-08-12] MEDS: GABAPENTIN 300 MG CAPSULE PO ×2 (08:34→12:12)
[2022-08-12] MEDS: VENLAFAXINE HCL XR 75 MG CAP.ER.24H 150 MG PO (08:34)
[2022-08-12] MEDS: PANTOPRAZOLE SODIUM IV 40 MG VIAL IV PUSH (08:35)
[2022-08-12] MEDS: TAMSULOSIN HCL 0.4 MG CAPSULE PO (08:35)
[2022-08-12] MEDS: INSULIN ASPART (*BKC) 100 UNITS/ML SUB-Q ×2 (08:35→12:12)
[2022-08-12] MEDS: FUROSEMIDE INJ 40 MG/4 ML VIAL 20 MG IV PUSH (08:35)
[2022-08-12 08:54] LABS: Hematocrit 40.8 % (42.0-52.0); Hemoglobin 11.9 g/dL (14.0-18.0); Mean Corpuscular HGB Conc 29.2 g/dl (32-36); Mean Corpuscular Hemoglobin 25.2 pg (26-34); Mean Corpuscular Volume 86.4 fl (80-100); Mean Platelet Volume 10.6 fl (7.4-10.4); Platelet Count Result 260 k/mm3 (150-375); Red Blood Count 4.72 M/mm3 (4.6-6.20); Red Cell Distribution Width 17.8 % (11.5-14.5); White Blood Count 20.4 K/mm3 (4.5-10.0)
--- NOTE | 2022-08-12 09:56 | PM.PNPUL ---
Progress Note: A&P Assessment and Plan (1) Acute and chronic respiratory failure: Code(s): J96.20 - Acute and chronic respiratory failure, unspecified whether with hypoxia or hypercapnia Status: Acute Assessment and Plan: 08/07/2022 Patient with acute on chronic hypoxemic and hypercarbic respiratory failure with admission blood gas of 7.32/75/74 on 100% non-rebreather. Etiology includes interstitial is lung disease with progression and or acute exacerbation, fluid overload, pneumonia, large left greater than right pleural effusion. 08/08/2022 Patient has been treated with BiPAP. His last blood gas on BiPAP with a rate of 20, pressures 20/6 and 40% was 7.58/46/67. He is currently on high-flow nasal cannula 60 L 35% FiO2 with saturations 94%. Would continue high-flow as tolerated at this time. Patient is currently being treated with Solu-Medrol for possible interstitial lung disease exacerbation and I will decrease from 60 Q 6-30 Q 6 today. Patient is being diuresed with Lasix and is currently -3 0.2 L since admission. Patient is empirically being treated for pneumonia with vancomycin and Levaquin both of which were started on 08/06/2022. Patient is right for ox a band for his AFib has been held and his last dose was 08/05 at 3:00 p.m.. Repeat INR today is 1.9. Will discuss this level with Radiology team performing thoricentesis. 08/09 patient has improved and he states that he is 60% back to normal. Patient wore the BiPAP for approximately 1 hour last night and tolerated it poorly. Currently the patient is on high-flow nasal cannula 60 L 30% FiO2 with saturations 100%. Will attempt to change patient to conventional nasal cannula oxygen today. will attempt to keep patient on BiPAP through the night tonight. 08/10 Patient continues to improve since states that he is 85-90% back to his normal. Patient wore 3 L nasal cannula overnight and did not wear the BiPAP and said he slept well. Patient is currently on 3 L with saturations 100% and has no shortness of breath at rest. His white blood cell count is 24.8. Chest x-ray small right and moderate left pleural effusion and no change in his diffuse interstitial alveolar infiltrates. Receive Solu-Medrol 30 mg this morning and will DC Solu-Medrol place him on prednisone 20 mg starting 08/11. Diuretics held for soft blood pressure. diuresed a total of 9.3 L since admission. 08/11 Patient continues to improve and states his breathing is 100% back to his normal. He remains weak though. His on 2 L nasal cannula saturations 98%. His white blood cell count is 19.5, his creatinine is 1.0. Cytology on the pleural fluid is negative. Chest x-ray today she shows left greater than right pleural effusion and diffuse interstitial alveolar infiltrates with no change. Diuretics held for soft blood pressure. Total diuresis -8.1 L since admission. BNP has improved to 5450. Patient is on 2 L nasal cannula which is improved from his baseline 3 L nasal cannula. I will check an overnight oximetry tonight on 2 L. patient remains stable overnight and can increase his activity will consider discharge home on 08/12/2022. 08/12 Patient continues to improve and states that he is back at his baseline. He is walking in his room and has walk to the bathroom. His white blood cell count is 20.4. Patient had an overnight oximetry on 2 L nasal cannula with an average saturation 98%, low saturation 92%, time with saturation less than or equal to 88% was 0 minutes. patient is diuresed 8.4 L since admission and his weight is 67.8 kg. Patient was treated for fluid overload, pneumonia and interstitial lung disease and I suspect Diuresis provided him the most benefit. Has received 7 days of vancomycin and Levaquin and will discontinue antibiotics. Will wean him back to his home dose of prednisone 5 as an outpatient. From a pulmonary perspective patient is ready to be discharged on these pulmonary m
[2022-08-12 11:55] LABS: Glucose Point of Care 302 mg/dl (65-105)
--- NOTE | 2022-08-12 13:10 | PCOTNOTE ---
Attempted to see patient this pm, however patient declined due to discharge. Pt and reported doctor recently came in and reported he can discharge today. Now we're just waiting. Let's go! I'm ready to go home. reported no concerns as pertains to OT prior to discharge and stated home health is already set up.
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
--- NOTE | 2022-08-12 14:50 | PC.NURSE ---
Spoke with Dr breaux at 1050 regarding patients indwelling cath, received orders to d/c cath and have patient void prior to discharge.
[2022-08-12 21:25] LABS: LDH Pleural Fluid 201 U/L; Total Protein Pleural Fluid <3.0 g/dL
== END 2022-08-12 14:45 | disposition home health service (06) | DRG 189 ==
LOC: ANHED 11:42 → ANHICU 14:33 → ANH3MEDSUR 08-11 06:40
PROVIDERS: Internal Medicine; Internal Medicine Pulmonary Disease; Nurse Practitioner; Physician Assistant; Radiology Diagnostic Radiology; Admitting Provider Hospitalist; Emergency Provider General Practice; Visit Provider Family Medicine
DX: J96.21 Acute and chronic respiratory failure with hypoxia (principal); J18.9 Pneumonia, unspecified organism; G92.9 Unspecified toxic encephalopathy; E72.20 Disorder of urea cycle metabolism, unspecified; J81.1 Chronic pulmonary edema; J90 Pleural effusion, not elsewhere classified; I42.9 Cardiomyopathy, unspecified; J96.22 Acute and chronic respiratory failure with hypercapnia; I25.10 Atherosclerotic heart disease of native coronary artery without angina pectoris; I10 Essential (primary) hypertension; E11.9 Type 2 diabetes mellitus without complications; E78.00 Pure hypercholesterolemia, unspecified; E78.5 Hyperlipidemia, unspecified; M54.9 Dorsalgia, unspecified; G89.29 Other chronic pain; F55.8 Abuse of other non-psychoactive substances; F17.210 Nicotine dependence, cigarettes, uncomplicated; Z20.822 Contact with and (suspected) exposure to COVID-19; Z89.422 Acquired absence of other left toe(s); Z79.01 Long term (current) use of anticoagulants; Z90.49 Acquired absence of other specified parts of digestive tract; Z95.1 Presence of aortocoronary bypass graft; Z86.718 Personal history of other venous thrombosis and embolism; Z95.5 Presence of coronary angioplasty implant and graft; Z79.891 Long term (current) use of opiate analgesic; Z99.81 Dependence on supplemental oxygen
CPT/HCPCS: 32555; 36415; 36430; 36600; 51702; 70450; 71045; 71250; 80053; 80202; 80307; 81001; 82040; 82140; 82375; 82550; 82570; 82805; 82948; 83036; 83050; 83605; 83615; 83735; 83880; 83986; 84145; 84155; 84157; 84300; 84443; 84484; 85025; 85027; 85610; 85730; 86900; 86901; 87040; 87070; 87075; 87102; 87205; 87206; 87636; 88108; 88184; 88305; 89051; 93005; 93306; 94002; 94003; 94640; 94660; 94762; 96374; 96375; 97116; 97161; 97165; 97530; 97535; 99291; A9270; C9113; J1120; J1815; J1940; J1956; J2060; J2270; J2310; J2405; J2920; J2930; J3370; J3475; J7050; J7512; P9017

== ENCOUNTER 2022-11-01 13:39 | Emergency (ER) | payer MEDICARE, BC, SELFPAY ==
--- NOTE | ~2022-11-01 | CT_ITS ---
EXAMINATION: CT brain wo con DATE: 11/01/2022 14:10 INDICATION: head injury . TECHNIQUE: Computed tomography (CT) of the head was performed without intravenous contrast. The mA wa s adjusted according to patient size. Iterative reconstruction technique was employed. The dose-lengt h product was 681.00 mGy-cm. COMPARISON: 08/06/2022. FINDINGS: No acute intracranial hemorrhage or extra-axial fluid collection. No hydrocephalus, mass, or herniation. No acute ischemic infarct. Unremarkable dural venous sinus attenuation. No acute osseous abnormality. The aerated spaces are clear. Mild atrophy and chronic white matter change. Atherosclerotic intracranial calcification. Bilateral l ens replacements. Bilateral basal ganglia calcification. IMPRESSION: No acute intracranial process. Reviewed, dictated and finalized at location K.
--- NOTE | ~2022-11-01 | XR_ITS ---
EXAMINATION: [id number] DATE: 11/01/2022 14:17 INDICATION: Right rib pain. Fall. TECHNIQUE: A frontal view of the chest and 2 views on 3 radiographs of the right ribs were obtained. COMPARISON: Chest single view 08/11/2022, chest CT 08/06/2022 FINDINGS: There are small right and moderate-sized left pleural effusions. There are airspace opaciti es in the lower lung zones. There is a diffuse interstitial pattern in the lungs. No pneumothorax. Ca rdiomegaly is noted. Median sternotomy wires and mediastinal surgical clips are seen, likely from dora or coronary artery bypass grafting. Calcified mediastinal lymph nodes are consistent with old granulo matous disease. IMPRESSION: 1. No rib fracture. 2. Small right and moderate-sized left pleural effusions, stable from 08/11/2022. 3. Diffuse lung disease, stable from 08/11/2022, consistent with mild pulmonary edema and basilar atel ectasis versus pneumonia. 4. Cardiomegaly. Reviewed, dictated and finalized at location A. IMPRESSION: 1. No rib fracture. 2. Small right and moderate-sized left pleural effusions, stable from 08/11/2022 . 3. Diffuse lung disease, stable from 08/11/2022, consistent with mild pulmonary edema and basilar atelectasis versus pneumonia. 4. Cardiomegaly.
[2022-11-01 13:46] VITALS: BP 123/62; PULSE 72; RESP 16; O2SAT 99
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
[2022-11-01 15:15] VITALS: BP 130/56; PULSE 90; RESP 16; O2SAT 97
== END 2022-11-01 15:15 | disposition home or self-care (01) ==
PROVIDERS: Emergency Provider General Practice
DX: S09.90XA Unspecified injury of head, initial encounter (principal); S00.83XA Contusion of other part of head, initial encounter; S41.112A Laceration without foreign body of left upper arm, initial encounter; S41.111A Laceration without foreign body of right upper arm, initial encounter; W01.0XXA Fall on same level from slipping, tripping and stumbling without subsequent striking against object, initial encounter; J96.10 Chronic respiratory failure, unspecified whether with hypoxia or hypercapnia; Z99.81 Dependence on supplemental oxygen; I25.10 Atherosclerotic heart disease of native coronary artery without angina pectoris; I10 Essential (primary) hypertension; E11.9 Type 2 diabetes mellitus without complications; E78.00 Pure hypercholesterolemia, unspecified; J84.9 Interstitial pulmonary disease, unspecified; G89.29 Other chronic pain; F17.210 Nicotine dependence, cigarettes, uncomplicated; F11.20 Opioid dependence, uncomplicated; Z79.01 Long term (current) use of anticoagulants; Z95.1 Presence of aortocoronary bypass graft; Z86.718 Personal history of other venous thrombosis and embolism; Z79.84 Long term (current) use of oral hypoglycemic drugs; Z95.5 Presence of coronary angioplasty implant and graft; Z90.49 Acquired absence of other specified parts of digestive tract; Z79.82 Long term (current) use of aspirin
CPT/HCPCS: 70450; 71101; 99283

== ENCOUNTER 2023-02-26 19:04 | Emergency (ER) | payer MEDICARE, BC, SELFPAY ==
--- NOTE | ~2023-02-26 | XR_ITS ---
EXAM: XR hip LT 2V w AP pelvis DATE: 02/26/2023 20:19 HISTORY: fall . COMPARISON: 11/21/2012. FINDINGS: Normal mineralization. No fracture or dislocation. No lytic or blastic lesion. Mild degene rative change in the lumbar spine. Mild bilateral hip osteoarthritis. Surgical clips over the left pr oximal thigh. Right femoral artery stent. No erosion or periosteal change. Soft tissues within normal limits. IMPRESSION: No acute osseous finding in the pelvis or left hip. Reviewed, dictated and finalized at location K.
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
[2023-02-26 19:34] VITALS: BP 113/42; PULSE 92; RESP 19; TEMP 36.5; O2SAT 97
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
[2023-02-26] MEDS: HYDROmorphone HCL INJ (*CRX) 1 MG/ML SYR 0.5 MG IV PUSH (21:12)
--- NOTE | 2023-02-26 21:12 | PC.NURSE ---
AGUEDA Bach administered lidocaine.
[2023-02-26 22:30] VITALS: BP 123/61; PULSE 67; RESP 16; O2SAT 100
== END 2023-02-26 22:30 | disposition home or self-care (01) ==
PROVIDERS: Emergency Provider Physician Assistant
DX: S81.812A Laceration without foreign body, left lower leg, initial encounter (principal); I25.10 Atherosclerotic heart disease of native coronary artery without angina pectoris; I10 Essential (primary) hypertension; E11.9 Type 2 diabetes mellitus without complications; E78.00 Pure hypercholesterolemia, unspecified; J84.9 Interstitial pulmonary disease, unspecified; F17.210 Nicotine dependence, cigarettes, uncomplicated; Z95.1 Presence of aortocoronary bypass graft; Z95.5 Presence of coronary angioplasty implant and graft; Z86.718 Personal history of other venous thrombosis and embolism; Z89.422 Acquired absence of other left toe(s); Z90.49 Acquired absence of other specified parts of digestive tract; Z79.01 Long term (current) use of anticoagulants; Z79.84 Long term (current) use of oral hypoglycemic drugs; R93.6 Abnormal findings on diagnostic imaging of limbs; V38.0XXA Driver of three-wheeled motor vehicle injured in noncollision transport accident in nontraffic accident, initial encounter
CPT/HCPCS: 12002; 73502; 73590; 96374; 99284; J1170

== ENCOUNTER 2024-01-12 15:15 | Outpatient (RCR) | payer MEDICARE, BC, SELFPAY ==
--- NOTE | 2023-11-01 17:11 | PTOPEVAL1 ---
Assessment and note entered by Ag Mendez Evaluation Information Assessment Status Evaluation Diagnosis left AKA Onset 05/10/24 Subjective Information Pt. reports that he underwent left AKA on 05/10/24 . Pt. reports that amputation resulted from an infection that he developed in the left l.e. He states that he received is prothesis the second week of August. He states that he did inpatient rehab for 1 week after receiving his prothesis. Pt. reports that he is currently not wearing the prothesis all day. He states that the longest he can wear the prothesis is 2-3 hours. He states that he is currently walking 2-3 times a day for a short distance in the home. He report that he is currently using crutches, due to having pain in his hands. He reports that prior to the amputation he was using a cane for ambulation. He states that he has recently return to short distance driving. He reports that he does have trouble getting into and out of the car, but it is easier with his crutches. He reports that his goal is to be able to return to walking with a cane. Reported Pain Level Pain Score 3: Self Report Assessment PT Clinical Summary Pt. is a 68 year old male that enters the clinic post left above knee amputation. He currently has his prothesis, but has been limited in regards to weight bearing activities and advancing his prothesis wear schedule. He is limited in treatment on this date due to elevated glucose to 252 during gait assessment. Pt. home care and home exercise program was reviewed on this date. Continued skilled PT is indicated in order to address functional mobility, l.e. strength, impaired gait and impaired balance in order to allow him to achieve his goal of returning to ambulate with a cane. Plan of Care Treatment Frequency and 2x/week x 10 visits Duration These treatments will address the objective and functional deficits as defined above. The patient will be advanced safely and appropriately in order for the patient to progress towards his/her prior level of function. Additional exercises will be introduced and as well as a comprehensive home exercise program upon discharge, if needed, ?to ensure carryover of functional gains achieved in the clinic. This treatment plan has been reviewed and agreement upon by the patient.
--- NOTE | 2023-11-01 17:11 | OPREHPOC ---
Outpatient Therapy Plan of Care This is a Multidisciplinary Plan of Care that may contain components documented by all disciplines (PT, OT, and ST.) PT Problem 1 PT Problem #1 Knowledge Deficit PT Goal 1 Goal Independent with a HEP addressing l.e. mobility and strength. Independent with a walking regimen. Target Visit 2 PT Problem 2 PT Problem #2 Impaired Balance PT Goal 1 Goal Improve tinetti score to 19 or greater to advance to ambulation with a standard cane. Target Visit 10 PT Problem 3 PT Problem #3 Impaired Functional Mobil PT Goal 1 Goal Pt. will be able to ambulate with a standard cane on the right for a distance of 150' with cga pt. will be able to ambulate a distance of 300' with ww in a duration of less than 6 minutes to begin more community navigation.
--- NOTE | 2023-12-20 15:30 | OPREHPOC ---
Outpatient Therapy Plan of Care This is a Multidisciplinary Plan of Care that may contain components documented by all disciplines (PT, OT, and ST.) PT Problem 1 PT Problem #1 Knowledge Deficit PT Goal 1 Goal Independent with a HEP addressing l.e. mobility and strength. Independent with a walking regimen. Target Visit 2 Progress Met PT Goal 2 Goal 12-20-23 progress met goals continue towards goals Target Visit 20 PT Problem 2 PT Problem #2 Impaired Balance PT Goal 1 Goal Improve tinetti score to 19 or greater to advance to ambulation with a standard cane. Target Visit 10 Progress Not Met PT Goal 2 Goal 12-20-23 progress improved to 15, but goal not met continue towards goal Target Visit 20 PT Problem 3 PT Problem #3 Impaired Functional Mobility PT Goal 1 Goal Pt. will be able to ambulate with a standard cane on the right for a distance of 150' with cga pt. will be able to ambulate a distance of 300' with ww in a duration of less than 6 minutes to begin more community navigation. Progress Not Met PT Goal 2 Goal 12-20-23 progress goal not met continue towards goal ADD GOAL: * pt ambulate with good weight shift onto L LE and control of L LE/prosthesis Target Visit 20
--- NOTE | 2023-12-20 15:31 | PTOPEVAL1 ---
Assessment and note entered by Lacy Bee, PT progress Information Assessment Status Progress Diagnosis left AKA Onset 05/10/24 Subjective Information have been walking at home with the wheeled walker; wearing the prosthesis about 5-6 hours, varies, sometimes wear longer; skin is still good, check every night; is doing the exercises at home; have an appointment December 31 with Kash for prosthesis check; has been working out in his shop 2-4 hours/ day wood working and finishing furniture; GOAL: to continue therapy--walk with the cane and walk better, with good control of prosthesis; Reported Pain Level Pain Score Self Report Additional Pain Score Comments pain range of 0-4/10 in L LE; sore and ache at distal and anterior aspect of stump; Assessment PT Clinical Summary Byron has received 10 PT sessions. He has an appointment for prosthesis check January 02. Compared to the initial evaluation: Tinetti balance/gait score improved from 11 to 15/28; 2 minute walking test distance with the wheeled walker is same at 90'; with total distance able to walk with wheeled walker 150' with CGA for safety; with the cane, total distance of 45' with min assist of one; his prosthesis does not fit well and has some rotation to it and his pain is increased over anterior and distal stump; skin of L stump is good, without redness or skin irritation. reported increased wearing time of prosthesis to 5 -6 hours at time; increase activity with return to wood working 2-4 hours at time; education for HEP, gait training and progression of activity. His progress has been slow due to poor fitting prosthesis, issues with blood glucose and oxygen use with decreased activity tolerance. The goals were partially met. Continue PT treatment. Plan of Care Interventions Gait Training,Neuro Re-education,Patient/Caregiver Educati,Therapeutic Activities,Therapeutic Exercise PT Services Indicated Yes Treatment Frequency and 1-2x/wk for 10 visitis Duration These treatments will address the objective and functional deficits as defined above. The patient will be advanced safely and appropriately in order for the patient
--- NOTE | 2023-12-28 12:54 | PCPTNOTE ---
Pt canceled today due to no ride.
--- NOTE | 2024-01-12 15:45 | PCPTNOTE ---
shortened PT session to 35 minutes, due to pt not feeling well and stopped due to him saying I am done for today.
--- NOTE | 2024-01-15 15:46 | PCPTNOTE ---
pt called and canceled appt due to not feeling well.
--- NOTE | 2024-01-18 15:42 | PCPTNOTE ---
pt did not show for today's reevaluation appt.
--- NOTE | 2024-01-23 13:45 | PCPTNOTE ---
This treatment is being continued on visit number [id number]. Please see documentation on both accounts to view progress. Completed interventions, outcomes, and problems have been marked as Inactive to facilitate the copying of the Care plan routine for recurring accounts.
== END 2024-01-23 10:22 | disposition home or self-care (01) ==
LOC: ANHPT 15:15
DX: Z47.81 Encounter for orthopedic aftercare following surgical amputation (principal); Z89.612 Acquired absence of left leg above knee
CPT/HCPCS: 97110; 97112; 97116; 97162; 97530; 99199

== ENCOUNTER 2024-03-15 10:00 | Outpatient (RCR) | payer MEDICARE, BC, SELFPAY ==
--- NOTE | 2024-01-23 13:47 | PCPTNOTE ---
This treatment is being continued from visit number [id number]. Please see documentation on both accounts to view progress. Completed interventions, outcomes, and problems have been marked as Inactive to facilitate the copying of the Care plan routine for recurring accounts.
--- NOTE | 2024-02-09 14:28 | OPREHPOC ---
Outpatient Therapy Plan of Care This is a Multidisciplinary Plan of Care that may contain components documented by all disciplines (PT, OT, and ST.) PT Problem 1 PT Problem #1 Knowledge Deficit PT Goal 1 Goal Independent with a HEP addressing l.e. mobility and strength. Independent with a walking regimen. Target Visit 2 Progress Met PT Goal 2 Goal 12-20-23 progress met goals continue towards goals Target Visit 20 Progress Met Comment 02-09-24 progress goals met continue towards to progress education/HEP PT Problem 2 PT Problem #2 Impaired Balance PT Goal 1 Goal Improve tinetti score to 19 or greater to advance to ambulation with a standard cane. Target Visit 10 Progress Not Met PT Goal 2 Goal 12-20-23 progress improved to 15, but goal not met continue towards goal Target Visit 20 Progress Not Met Comment 02-09-24 progress goal not met, is target 23 visits PT Problem 3 PT Problem #3 Impaired Functional Mobility PT Goal 1 Goal Pt. will be able to ambulate with a standard cane on the right for a distance of 150' with cga pt. will be able to ambulate a distance of 300' with ww in a duration of less than 6 minutes to begin more community navigation. Progress Not Met PT Goal 2 Goal 12-20-23 progress goal not met continue towards goal ADD GOAL: * pt ambulate with good weight shift onto L LE and control of L LE/prosthesis
--- NOTE | 2024-02-09 14:29 | PTOPPROG ---
Assessment and note entered by Lacy Bee, PT Progress Report Assessment Status Progress Diagnosis left AKA Onset 05/10/24 Subjective Information am making progress with his balance; want to be able to walk and not use the wheelchair; went to car distributor and she altered the leg and it feel better; want to continue to come for therapy. have been wearing the prosthesis 3-4 hours/day, because it hurts, had to take it off; using the w/c for mobility in the house, have been walking short distance in the kitchen holding onto the counter top; Assessment PT Clinical Summary Byron has received 15 PT sessions. He did not show for 1 and call/canceled 2 appointments. Compared to the last progress report: 2 minute walking test distance is 15' less and total walking time of 150 is the same; Tinetti balance score decreased from 15 to 14/28- due to L foot drag, with new adjustment to prosthesis; walking with the straight cane 5', then had loss of balance; 5 reps sit/stand time of 23 seconds with use of both UE on chair. He went to [facility] today and had adjustments made to his L prosthesis--stated it fits more comfortable; with walking the hip is fitting better with less lateral motion of the prosthesis, but he dragged his foot with walking. Reinforced today and reinstructed to pt: importance of HEP, walking more at home, wearing prosthesis. Byron has issues with low back pain and SOB, which limit his mobility and tolerance. He states he wants to walk with the cane, but discussed, it may not be realistic at this time, need to improve walking and the wheeled walker is the best for him. The goals were partially met. [facility], for further gait training with the new adjustments to his prosthesis. Reinforced to him that he must make progress at the next reevaluation or PT will be discharged. Plan of Care Interventions Gait Training,Neuro Re-education,Patient/Caregiver Education,Therapeutic Activities,Therapeutic Exercise PT Services Indicated Yes Treatment Frequency and 2x/wk for 8 visits Duration These treatments will addr
--- NOTE | 2024-03-15 10:53 | PTOPDC ---
Assessment and note entered by Lacy Bee, PT Discharge Report Assessment Status Discharge Diagnosis left AKA Onset 05/10/24 Subjective Information is wearing his prosthesis 8 hours/day, no issues with his skin; have 5 ply sock on today; using the wheeled walker or cane in the house for walking; about 60% of the time use the scooter in the house; feel like limited due to strength and muscle mass--weak fast; Reported Pain Level Pain Score 3: Self Report Additional Pain Score Comments chronic back pain; also have pain in both shoulders and hands; Assessment PT Clinical Summary Byron has received a total 22 PT sessions. Compared to the last reeval: Tinetti balance score from 14 to 15/28= high risk for falls; 5 reps sit/stand time from 23 to 25 seconds; time for static standing without UE support improved from 1 min & 6 seconds to 2 minutes & 25 seconds; 2 minute walking test distance: use of wheeled walker for 85' and today with cane 65'; he wanted to use the cane for walking; increase wearing time of prosthesis L LE; education completed for HEP, prosthesis and activity progression. He is limited with walking due to SOB with oxygen at 3L/min. At home, he reports doing more activity with his wood working and less use of the scooter with in home activities. The goals were partially met. Discharge PT; he is to continue with his HEP and progression of his activity as able. Plan of Care PT Services Indicated No
== END 2024-03-15 13:14 | disposition home or self-care (01) ==
LOC: ANHPT 10:00
DX: Z47.81 Encounter for orthopedic aftercare following surgical amputation (principal); Z89.612 Acquired absence of left leg above knee
CPT/HCPCS: 97110; 97116; 97530

== ENCOUNTER 2024-06-17 13:35 | Emergency (ER) | payer MEDICARE, BC, SELFPAY ==
[2024-06-17 13:50] VITALS: BP 120/50; PULSE 79; RESP 18; TEMP 36.6; O2SAT 100
--- NOTE | 2024-06-17 14:22 | ED.GENADULT ---
HPI - General Adult General Chief complaint: Wound/Laceration Stated complaint: Right Leg Bleeding Time Seen by Provider: 06/17/24 14:22 Source: patient, RN notes reviewed and old records reviewed Mode of arrival: ambulatory Limitations: no limitations History of Present Illness HPI narrative: 68-year-old male presents to the [facility] with skin tears to the right leg. Occurred on Monday 2 days ago. Patient is on blood thinners and a baby aspirin. Bleeding is controlled at this time Related Data Home Medications Medication Instructions Recorded Confirmed atorvastatin 80 mg tablet 80 mg PO DAILY 03/31/21 08/06/22 gabapentin 300 mg capsule 300 mg PO DIRECTED 03/31/21 08/06/22 metformin 1,000 mg tablet 1,000 mg PO BID 03/31/21 08/06/22 methadone 5 mg tablet 5 mg PO DAILY 03/31/21 08/06/22 nitroglycerin 0.4 mg sublingual 0.4 mg sublingual DIRECTED PRN 03/31/21 08/06/22 tablet Chest Pain pantoprazole 40 mg tablet,delayed 40 mg PO ONCE 03/31/21 08/06/22 release rivaroxaban 20 mg tablet (Xarelto) 20 mg PO DAILY 03/31/21 08/06/22 trazodone 150 mg tablet 150 mg PO HS 03/31/21 08/06/22 venlafaxine 150 mg 150 mg PO DAILY 03/31/21 08/06/22 capsule,extended release 24 hr prednisone 5 mg tablet 5 mg PO ONCE 06/15/22 08/06/22 tamsulosin 0.4 mg capsule 0.4 mg PO DAILY 06/15/22 08/06/22 methadone 5 mg tablet 5 mg PO BID 08/06/22 08/06/22 Allergies Allergy/AdvReac Type Severity Reaction Status Date / Time amoxicillin Allergy Intermediate TONGUE Verified 06/30/23 11:00 SWELLING clavulanic acid Allergy Intermediate TONGUE Verified 06/30/23 11:00 SWELLING Sulfa (Sulfonamide Allergy Intermediate TONGUE Verified 06/30/23 11:00 Antibiotics) SWELLING codeine Allergy Unknown Itching Verified 06/30/23 11:00 Review of Systems Review of Systems: All systems reviewed & are unremarkable except as noted in HPI and below Constitutional: Constitutional: Reports no additional constitutional complaints ENT: Reports system reviewed and no additional complaints, except as documented Cardiovascular: Cardiovascular: Reports no additional cardiovascular complaints, Denies chest pain and Denies dyspnea Respiratory: Respiratory: Reports no additional respiratory complaints, Denies chest congestion, Denies cough and Denies dyspnea Gastrointestinal: Gastrointestinal: Reports no additional gastrointestinal complaints, Denies abdominal pain, Denies nausea and Denies vomiting Musculoskeletal: Musculoskeletal: Reports no additional musculoskeletal complaints Integumentary/Breasts: Skin/Breast: Reports as per [facility] Past Medical History Medical History Amputation toe left small toe Chronic anticoagulation Chronic pain Coronary artery disease Status post CABG and multiple PCIs Diabetes mellitus High cholesterol History of DVT (deep vein thrombosis) History of esophageal dilatation Hyperlipidemia Hypertension Interstitial lung disease Pleural effusion Surgical History Surgical History H/O arthroscopic knee surgery H/O carotid endarterectomy H/O shoulder surgery History of back surgery History of esophagogastroduodenoscopy (EGD) History of exploratory laparotomy History of partial colectomy Hx of CABG S/P peripheral artery angioplasty with stent placement Total of 17 stents S/P tonsillectomy and adenoidectomy Family History Family History Mother Family history of diabetes mellitus in first degree relative Family history of pancreatic cancer Sibling Family history of diabetes mellitus in first degree relative Family history of heart disease in male family member before age 55 Father Family history of heart disease in male family member before age 55 Other Family history of cardiovascular disease Social History Social History Social History: The patient lives with his significant other/life partner who is the he is and has 2 children. The patient continues to smoke 1/2 ppd. the patient has been treated for addiction to prescribe pain medication in the past and is now on methadone. Former alcohol use. Code status full code Smoking packs per day: 0.5 Smoking cigarettes per day: 10.0 Years smoked: 30 Smoking pack-years: 15.00 Smoking status: Current every day smoker Tobacco type: cigarettes Second hand tobacco smoke exposure: No Alcohol intake: former Substance use: former Substance use type: painkillers and prescription drug Spiritual care concerns: No Comments At the time of my signature, I reviewed and agree with the nursing past medical, surgical, social, and family history. There is no relevant family history pertinent to the patient complaint. Exam Const: General: cooperative, healthy appearing, comfortable, no acute distress, well developed, alert and well nourished Nutritional Appearance: well nourished Orientation/consciousness: patient oriented x3 Limitations: no limitations HENMT: Head: normal to inspection Ears: hearing grossly normal bilaterally and external ears normal Face/Nose/Sinus: Normal external nose present, normal facial exam and face symmetric Face and sinus: normal facial exam and face symmetric Eyes: General: appearance normal, both eyes and all related structures Alignment and Position: alignment normal Periorbital: periorbital findings normal Neck: Neck: normal visual inspection, full ROM, no lymphadenopathy and no meningeal signs Chest: Chest palpation & inspection: normal inspection of the chest Resp: Effort & Inspection: normal respiratory effort and able to speak in complete sentences Cardio: Rate: regular rate Skin: General skin exam: normal color and no rashes or lesions noted Lesions: no lesions Rashes: no rashes Other: Skin tear right lower leg. 2 x 1 cm flap. Bleeding is controlled. Area cleaned, discussed with patient cleaning, taking care of which he verbalized understanding. Neuro: General: patient oriented x3, tone normal, moves all extremities and no meningeal signs Cognition (Neuro): normal cognition Speech: normal speech Extrem: General: normal to inspection, full ROM and capillary refill normal Psych: Appearance: grossly normal and well kempt Mental Status: mental status grossly normal Speech and movement: Normal speech and movement present and Clear speech present Affect: normal affect Attitude: cooperative Course Course Level of Care: Express Care Visit Vital Signs Vital signs: Vital Signs Temperature 98 F 06/17/24 13:50 Pulse Rate 79 06/17/24 13:50 Respiratory Rate 18 06/17/24 13:50 Blood Pressure 120/50 L 06/17/24 13:50 Pulse Oximetry 100 06/17/24 13:50 Oxygen Delivery Nasal Cannula 06/17/24 13:50 Oxygen Flow Rate 4 06/17/24 13:50 Temperature 98 F 06/17/24 13:50 Pulse Rate 79 06/17/24 13:50 Respiratory Rate 18 06/17/24 13:50 Blood Pressure 120/50 L 06/17/24 13:50 Pulse Oximetry 100 06/17/24 13:50 Oxygen Delivery Nasal Cannula 06/17/24 13:50 Oxygen Flow Rate 4 06/17/24 13:50 Reviewed Medical Decision Making MDM Narrative Medical decision making narrative: Patient sitting comfortably in exam room. Nontoxic, vitals stable. Patient in no acute distress Patient presents for evaluation of a skin tear to the right lower leg. Patient is in a wheelchair due to a left leg amputation, does wear oxygen Patient is on Eliquis and a baby aspirin every day. Patient bleeding is controlled at this time. Discussed dressing changes, keeping it clean and dry which he verbalized understanding. Discharge instructions reviewed with patient, as well as provided in writing per nursing staff. The instructions also include specific and strict return/GO TO THE ER as well as f/u information. All questions have been answered, and the patient deny any further questions with discharge and discharge plan. Some parts of this dictation were generated by voice recognition software and may contain typographical and/or grammatical inaccuracies. Differential Diagnosis Differential Diagnosis: Skin tear, abrasion Medical Records Medical records reviewed: Yes I reviewed the external patient's medical records. Vital Signs Vital Signs: Vital Signs Temperature 98 F 06/17/24 13:50 Pulse Rate 79 06/17/24 13:50 Respiratory Rate 18 06/17/24 13:50 Blood Pressure 120/50 L 06/17/24 13:50 Pulse Oximetry 100 06/17/24 13:50 Oxygen Delivery Nasal Cannula 06/17/24 13:50 Oxygen Flow Rate 4 06/17/24 13:50 Temperature 98 F 06/17/24 13:50 Pulse Rate 79 06/17/24 13:50 Respiratory Rate 18 06/17/24 13:50 Blood Pressure 120/50 L 06/17/24 13:50 Pulse Oximetry 100 06/17/24 13:50 Oxygen Delivery Nasal Cannula 06/17/24 13:50 Oxygen Flow Rate 4 06/17/24 13:50 Reviewed Lab Data Lab results reviewed: Yes I reviewed the patient's lab results. Labs: Reviewed Critical Care Time Critical Care Time Critical Care Time: No Discharge Plan Discharge Clinical Impression: Skin tear of right lower leg without complication Patient Disposition: Home, Self-Care Condition: Stable Instructions: Antibiotic Form, Skin Tear (ED) Additional Instructions: Keep area clean and dry Follow-up with primary care provider For new or worsening symptoms go directly to the emergency room Patient Language: Niuean Prescriptions: No Action atorvastatin 80 mg tablet 80 mg PO DAILY venlafaxine 150 mg capsule,extended release 24hr 150 mg PO DAILY pantoprazole 40 mg tablet,delayed release (DR/EC) 40 mg PO ONCE trazodone 150 mg tablet 150 mg PO HS metformin 1,000 mg tablet 1,000 mg PO BID nitroglycerin 0.4 mg tablet, sublingual 0.4 mg sublingual DIRECTED PRN (Reason: Chest Pain) gabapentin 300 mg capsule 300 mg PO DIRECTED Rx Instructions: Take one capsule QID methadone 5 mg tablet 5 mg PO DAILY Rx Instructions: Takes 2 tabs in am and 1 tab in evening Xarelto 20 mg tablet 20 mg PO DAILY prednisone 5 mg tablet 5 mg PO ONCE tamsulosin 0.4 mg capsule 0.4 mg PO DAILY methadone 5 mg tablet 5 mg PO BID Rx Instructions: Takes 2 tabs in Am, 1 tab in PM alprazolam 0.5 mg Tablet 0.5 mg PO Q8HR PRN (Reason: Anxiety) Qty: 12 0RF aspirin [Children's Aspirin] 81 mg Tablet,Chewable 81 mg PO DAILY@0800 Qty: 12 0RF lactulose 20 gram/30 mL Solution 20 g PO QAM Qty: 1000 0RF Jardiance 10 mg Tablet 10 mg PO DAILY Qty: 30 0RF prednisone 10 mg tablet 10 mg PO DAILY Qty: 11 0RF Rx Instructions: 4Tx2d 1tx3d thereafter patient to continue his home dose of 5mg. Follow-up/Referrals: PHYSICIAN,CHAIR CAR DRIVER [Primary Care Provider] - Time of Disposition: 14:30
== END 2024-06-17 14:43 | disposition home or self-care (01) ==
PROVIDERS: Emergency Provider Nurse Practitioner
DX: S81.811A Laceration without foreign body, right lower leg, initial encounter (principal); X58.XXXA Exposure to other specified factors, initial encounter; Z79.01 Long term (current) use of anticoagulants; Z79.82 Long term (current) use of aspirin; I25.10 Atherosclerotic heart disease of native coronary artery without angina pectoris; E11.9 Type 2 diabetes mellitus without complications; Z79.84 Long term (current) use of oral hypoglycemic drugs; I10 Essential (primary) hypertension; E78.00 Pure hypercholesterolemia, unspecified; J84.9 Interstitial pulmonary disease, unspecified; Z86.718 Personal history of other venous thrombosis and embolism; Z95.1 Presence of aortocoronary bypass graft; Z98.62 Peripheral vascular angioplasty status; F17.210 Nicotine dependence, cigarettes, uncomplicated
CPT/HCPCS: 99212; G0463

== ENCOUNTER 2024-07-25 14:30 | Outpatient (RCR) | payer MEDICARE, BC, SELFPAY ==
--- NOTE | 2024-05-27 11:57 | OPREHPOC ---
Outpatient Therapy Plan of Care This is a Multidisciplinary Plan of Care that may contain components documented by all disciplines (PT, OT, and ST.) PT Problem 1 PT Problem #1 Knowledge Deficit PT Goal 1 Goal / Goal Update *indep with HEP Target Visit 10 PT Problem 2 PT Problem #2 Impaired Strength PT Goal 1 Goal / Goal Update increase LE strength to improve mobility and transfer skills 1* sit/stand with use of 1 UE 2* w/c <> mat transfer with correct technique and NO plopping into chair Target Visit 10 PT Problem 3 PT Problem #3 Impaired Functional Mobility PT Goal 1 Goal / Goal Update 1* 2 minute walking test distance with cane of 75' 2* maximum walking distance with cane of 100' 3* pt report using the w/c in his home 50% time Target Visit 10
--- NOTE | 2024-05-27 11:57 | PTOPEVAL1 ---
Assessment and note entered by Lacy Bee PT Evaluation Information Assessment Status Evaluation ICD-10 Condition Codes (PT) Difficulty Walking R26.2,R26.9,Weakness R53.1 Other ICD-10 Condition Codes ( chronic pain syndrome G89.4; L AKA PT) Onset February 2024 Subjective Information decline in walking and mobility; fatigue easily, breathing problems; no falls in the past 6 months- -have been very careful; recent adjustment in L AKA prosthesis; problems with breathing--have to use the inhaler more; Activity: use wheel chair and motorized scooter for mobility; walking with cane 10' or less in his home; sometimes use the wheeled walker but get tangled up with itl wear L LE prothesis 8 hours/day, skin remains good; have oxygen on all the time; Goal: get leg strength, walk more; Reported Pain Level Pain Score 4: Self Report Additional Pain Score Comments chronic pain in low back, L groin area--prosthesis is hitting Assessment PT Clinical Summary Byron has the diagnosis of chronic pain syndrome, decreased gait and mobility, L AKA. At home, he is walking short distances with the cane and using the motorized scooter or w/c for distances. Medical history: COPD with oxygen use, diabetes. With the evaluation: indep donning/doffing L prosthesis and is doing skin checks; sit/stand requires use of both UE's; 5 reps sit/stand time of 31 seconds; Tinetti balance score of 12/28; 2 minute walking test distance with cane is 40', with one rest break due to LBP; maximum walking distance with the cane is 45'; he has decreased strength of both legs and R hip and knee extension of (-10') and poor transfer skills--tends to plop into chair. Skilled PT services are indicated to increase LE strength, gait and balance skills, to improve mobility and safety. Education for progression of HEP and safety with transfers. Plan of Care Interventions Gait Training,Patient/Caregiver Education,Prosthetic Training,Therapeutic Activities,Therapeutic Exercise PT Services Indicated Yes Treatment Frequency and 2x/wk for 10 visits Duration These treatments will address the objective and functional deficits as defined above. The patient will be advanced safely and appropriately in order for the patient to progress towards his/her prior level of function. Additional exercises will be introduced and as well as a comprehensive home exercise program upon discharge, if needed, ?to ensure carryover of functional gains achieved in the clinic. This treatment plan has been reviewed and agreement upon by the patient.
--- NOTE | 2024-06-10 08:35 | PCPTNOTE ---
Patient is out of town and unable to attend his appointment today.
--- NOTE | 2024-06-24 15:16 | PCPTNOTE ---
Reschedule due to schedule conflict. AKS
--- NOTE | 2024-07-05 10:36 | PCPTNOTE ---
pt did not show for today's reeval. I called him and he stated he did not have a ride.
--- NOTE | 2024-07-25 15:21 | PTOPDC ---
Assessment and note entered by Lacy Bee, PT Assessment Status Discharge ICD-10 Condition Codes (PT) Difficulty Walking R26.2,Abnormalities of gait and mobility R26.9,Weakness R53.1 Other ICD-10 Condition Codes ( chronic pain syndrome G89.4 PT) Onset February 2024 Subjective Information fell with sitting in the scooter and reaching for something- landed on back and L hip; do not feel well overall--lungs and breathing issues, abdominal issues- to see primary dr tomorrow; in the past week, have prosthesis on 2-6 hours, 4x/ week; not feeling well and staying in bed some days; in home walking about 30' down [place] with the cane and holding onto the wall; in the house, uses the motorized scooter about 70% of his mobility; Reported Pain Level Pain Score 4: Self Report Assessment PT Clinical Summary Byron has received 9 PT sessions. He called/ canceled 3 and did not show for 1 appointment. Continues to use oxygen at 3-4 L/min. With today's reevaluation: he was not feeling well and did not want to use the cane for walking; sit/stand transfer with 1 UE use and good control; 2 minute walking test distance with the wheeled walker 115' and maximum walking distance of 150'; education completed for HEP and prosthesis. He is limited with his mobility due to back pain, hip pain, abdominal pain and respiratory issues. He has a good understanding of skin care, prosthesis use, gait pattern with wheeled walker and cane. Discharge PT. He is to continue with his HEP and activity as tolerated at home, with his other issues. Plan of Care PT Services Indicated No
== END 2024-07-25 16:39 | disposition home or self-care (01) ==
LOC: ANHPT 14:30
DX: G89.4 Chronic pain syndrome (principal)
CPT/HCPCS: 97110; 97116; 97161; 97530

== ENCOUNTER 2025-07-16 14:06 | Outpatient (CLI) | payer MEDICARE, BC, SELFPAY ==
--- OUTSIDE RECORDS SUMMARY | 2025-06-29 11:00 | XMS_ITS | Encounter Summary ---
Author Organization [facility] Healthcare Address [address] [place] [address] Care Team Providers Care Gas Operations Superintendent Name Role Phone Amando Cintron MD Unavailable Harjeet Cintron MD Primary Care Prov ider Reason for Visit * Reason Comments Leg Pain * Auth/Cert (Routine) Specialty Diagnoses / Procedures Referred By Contac t Referred To Contact Referral ID Status Reason Start Date Expiration Date Visits Re quested Visits Authorized [id number] 1 1 Encounter Details Date Type Department Care Team (Latest Contact Info) Description 06/29/2025 11:00 AM CUSTOMER RETENTION REPRESENTATIVE Home Care Visit [facility] [address] [address] [address] [place] [address] [place] [address] [address] SN OASIS START OF CARE Social History Tobacco Use Types Packs/Day Years Used Date Smoking Tobacco: Every Day Cigarettes 0.8 40 Started: 1982; Last attempted to quit: 2022 Smokeless Tobacco: Never Comments:refused counseling at this time Alcohol Use Standard Drinks/Week Comments Not Currently 0 (1 standard drink = 0.6 oz pur e alcohol) x32 years OASIS D0700: Social Isolation Answer Da te Recorded Frequency of experiencing loneliness or isolatio n Never 06/29/2025 OASIS A1250: Transportation Answer Date Recorded Lack of Transportation (Medical) No 06/29/2025 Lack of Transportation (Non-Medical) No 06/29/2025 Patient Unable or Declines to Respond No 06/29/2025 OASIS B1300: Health Literacy Answer Dontae e Recorded Frequency of needing help to read materials from doctor or pharmacy Sometimes 06/29/2025 Social Connection and Isolation Panel Answer Date Recorded In a typical week, how many times do you talk on the phone with family, friends, or neighbors? More than three times a week 05/11/2023 How often do you get togethe r with friends or relatives? More than three times a week 05/11/2023 How often do you attend chur ch or sikhism services? Never 05/11/2023 Do you belong to any clubs o r organizations such as jehovah's witness groups, unions, fraternal or athletic groups, or school groups? No 05/11/2023 How often do you attend meet ings of the clubs or organizations you belong to? Never 05/11/2023 Are you , , di vorced, , never , or living with a partner? 05/11/2023 Overall Financial Resource Strain (CARDIA) Answe r Date Recorded How hard is it for you to pa y for the very basics like food, housing, medical care, and heating? Not hard at all 05/11/2023 PHQ-2 Answer Date Recorded PHQ-2 Total Score (If total score is 3 or more points, staff should administer the PHQ-9) 0 05/11/2023 PRAPARE - Transportation Answer Date Re corded In the past 12 months, has l ack of transportation kept you from medical appointments or from getting medications? No 04/30 In the past 12 months, has l ack of transportation kept you from meetings, work, or from getting things needed for daily living? No 05/11/2023 Housing Stability Vital Sign Answer Dontae e Recorded In the last 12 months, was t here a time when you were not able to pay the mortgage or rent on time? No 05/11/2023 In the last 12 months, how many places have you lived? 1 05/11/2023 In the last 12 months, was t here a time when you did not have a steady place to sleep or slept in a snf (including now)? No 05/11/2023 AUDIT-C Answer Date Recorded Q1: How often do you have a drink containing alcohol? Never 06/20/2025 Q2: How many drinks containi ng alcohol do you have on a typical day when you are drinking? Patient does not drink Q3: How often do you have si x or more drinks on one occasion? Never 06/20/2025 Hunger Vital Sign Answer Date Recorded Within the past 12 months, y ou worried that your food would run out before you got the money to buy more. Never true 07/11/20 25 Within the past 12 months, t he food you bought just didn't last and you didn't have money to get more. Never true 07/11/2025 Personal Safety Answer Date Recorded Have you ever been in or are you currently in a harmful physical or emotional relationship or is someone making you feel afraid or unsafe? Denies 05/10/2023 Sex and Gender Information Value Date Recorded Sex Assigned at Not on file Legal Sex Male 1:17 AM CUSTOMER RETENTION REPRESENTATIVE Gender Identity Not on file Sexual Orientation Not on file documented as of this encounter Last Filed Vital Signs Vital Sign Reading Time Taken Comments Blood Pressure 108/50 06/29/2025 10:54 AM CUSTOMER RETENTION REPRESENTATIVE Pulse 67 06/29/2025 10:54 AM CUSTOMER RETENTION REPRESENTATIVE Temperature 36.3 C (97.3 F) 06/29/2025 10:54 AM CUSTOMER RETENTION REPRESENTATIVE Respiratory Rate 20 06/29/2025 10:54 AM CUSTOMER RETENTION REPRESENTATIVE Oxygen Saturation 99% 06/29/2025 10:54 AM CUSTOMER RETENTION REPRESENTATIVE Inhaled Oxygen Concentration - - Weight 70.3 kg (155 lb) 06/29/2025 10:54 AM CUSTOMER RETENTION REPRESENTATIVE Height 177.8 cm (5' 10) 06/29/2025 10:54 AM CUSTOMER RETENTION REPRESENTATIVE Body Mass Index 22.24 06/29/2025 10:54 AM CUSTOMER RETENTION REPRESENTATIVE documented in this encounter Functional Status * BP Location Answer Date of Assessment Author Right arm 07/14/2025 2:08 PM Martha Ayon CMA * BP Location Answer Date of Assessment Author Right arm 07/14/2025 2:08 PM Martha Ayon CMA documented as of this encounter Miscellaneous Notes * Home Health/Infusion Deann Sharma RN - 06/29/2025 10:09 AM CUSTOMER RETENTION REPRESENTATIVE SITUATION Focus of Care: Arterial insufficiency of lower extremity with wound care Caregivers available: Blanca available regularly in evenings and some days works from home BACKGROUND Pertinent Medical History/Hospitalizations: Pt hit Rt lower leg against wheelchair 05/31/25 resulting in wounds to Rt garcia and Rt toes which are non- healing. Second injury of rt lateral foot struck against wheelchair, wound also not healing. 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 Required some assistance with shower,cooking, cleaning, grocery shopping. Non-ambulatory for a year due to Lt AKA and prosthesis uncomfortable. RLE weight-bearing and able to transfer self Current Living Conditions/Safety Hazards: SIngle story home has ramp available in back of home for entry. Shower seat, raised toilet seat with handles and bathroom grab bars all in place. Uses scooter to move around home and also has oxygen tubing connected to concentrator to maneuver. 1 dog in home. ASSESSMENT Abnormal assessment findings: multiple wounds on Rt garcia, rt toes, and rt lateral foot. Crackles bilateral lung bases. On O2. Lt AKA. Medication Issues: Prednisone 5mg daily not on list but is taking. Not taking repatha or psyllium husk. Drug-Drug Severe Interaction: albuterol HFA and carvediloL.Diminished response to either the beta-agonist, beta-karin, or both may occur. Beta-blockers may also induce bronchospasm. Re-hospitalization risk: Moderate Barriers to care/social drivers: No barriers identified RECOMMENDATIONS POC confirmed with Dr.Peter Dooley Plan for my discipline: 2w8, 2 prn Other disciplines ordered/recommended: Physical Therapy recommended but pt declined Supply/HME/equipment needs or issues: wound care supplies to be ordered, needs new front wheeled walker, needs bed rail to assist with getting in/out of bed safely. Follow ups needed: Will consult with [facility] for wound care recommendations. [facility] and Vascular MD appt 07/11/25 OMER RETENTION REPRESENTATIVE OMER RETENTION REPRESENTATIVE * Home Health Plan for Next Visit - Deann Galeano RN - 06/29/2025 10:09 AM CST Reason for today's visit SN SOC for RLE wound care, infection prevention education, DM education Discuss plan of care with patient, caregiver Discharge planning when goals met and skilled care services no longer needed Plan for next visit RLE wound care, infection prevention education, DM education, nutrition education OMER RETENTION REPRESENTATIVE documented in this encounter Plan of Treatment Scheduled Procedures Name Priority Associated Diagnoses Date/Ti me COLONOSCOPY Iron deficiency anemia, unspecified iron deficiency anemia type documented as of this encounter Goals Goal Patient Goal Type Associated Problems Recent Progress Patient-Stated? Author Diabetes Goal - Do not skip meals ACO Care Management Improving( 1:04 PM CDT) No Zahira Lamar RN Smoking Goal - Patient will be knowledgable of smoking cessation techniques and have resources needed to quit ACO Care Management No change(02/11 1:04 PM CDT) No Zahira Jo, RN Note: Problem: Altered Health Maintenance related to tobacco useage Interventions: - Assess patient's readiness or reason to want to quit tobacco. - Educate patient on the many short-term and long-term benefits of smoking cessation. - Assess the barriers for challenges for patient to quit tobacco. - Educate patient on withdrawl symptoms and ways to cope with these symptoms. - Provide alternative ways to support smoking cessation (nicotine replacement, medications, etc). - Assess patient's smoking status at every phone call. - Provide support, encouragement and education as the patient progresses through the stages of smoking cessation. Med Mgmt Goal - Patient will understand importance of following medication regimen and will take appropriate steps to maintain regimen ACO Care Management On track(2019 1:04 PM CDT) Danae Mcguire Note: Problem: Medication management Interventions: - Assess barriers to medication adherence: Provide coordination of care, education and resources to address these barriers. Include SW in patient's plan of care for resources if needed. - Instruct patient to: Take each medication each day at the times indicated by using a system (list, pill box, etc.). Do not allow prescriptions to or bottles to become empty before requesting refills. Bring all medications to each office visit. Contact physician or CM if they feel they are having side effects from medications (rather than stopping them without telling anyone). GABRIEL General Goal - Patient is knowledgeable about condition when worsening and how to respond ACO Care Management On track(2022 12:31 PM CDT) No Nisha Lepe, RN Note: Problem: Knowledge deficit related to signs and symptoms of worsening condition Interventions: - Assess patient's level of understanding related to their condition(s), specific medications and self-management of their chronic conditions. - Send educational materials to patient related to their chronic condition, including signs and symptoms, self-management actions, and serious symptoms that require urgent medical intervention. - Assist patient/provider in developing an action plan for symptom management. - Review with patient weekly: s/s worsening condition, self-management actions to take, when to call CM or provider. [facility] Chronic Pain Care Plan Chronic Care Management No change(09/20 9:23 AM CUSTOMER RETENTION REPRESENTATIVE) No Marla Sheppard RN Note: Problem: Chronic Pain// ABD pain, legs Goals: 1. Minimize further functional decline 2. Maximize quality of life 3. Control pain Strategies: - Activity/exercise program recommendation - Conservative stepwise pain medicine strategy with multi-disciplinary approach - Recommend healthy lifestyle strategies and compensatory methods as needed documented as of this encounter Visit Diagnoses Not on filedocumented in this encounter Home Health Visit - Care Plan Visit Details Visit Type -SN OASIS Start o f Care Discipline -Residential Problems Problem Description Start Date Status Goals Interve ntions Medications Disciplines: Residential Management of home medications 06/29/2025 Active 1 goal linked to scheduled/documen yaya intervention 2 goal interventions scheduled/documen yaya in this visit Oxygen Safety Education Disciplines: Skilled Disciplines Oxygen Safety Education 06/29/2025 Active 1 goal linked to scheduled/documen yaya intervention 1 goal intervention scheduled/documen yaya in this visit Monitor patient's vital signs every home health visit Disciplines: Skilled Disciplines, SN, PT, OT, VEHICLE CALIBRATION ENGINEER, TRAIN BRAKEMAN Monitor patient's vital signs every home health visit. 06/29/2025 Active 1 goal linked to scheduled/documen yaya intervention 1 goal intervention scheduled/documen yaya in this visit Infection Prevention Disciplines: Skilled Disciplines Infection Prevention 06/29/2025 Active 1 goal linked to scheduled/documen yaya intervention 2 goal interventions scheduled/documen yaya in this visit Fall Precautions/Safe ty Concerns Disciplines: Skilled Disciplines Fall precautions and general safety 06/29/2025 Active 1 goal linked to scheduled/documen yaya intervention 1 goal intervention scheduled/documen yaya in this visit Knowledge Deficit - Other Disease Process and Management Disciplines: Skilled Disciplines Other disease process and management not already specified PAD, DM, CAD, ILD. 06/29/2025 Active 1 goal linked to scheduled/documen yaya intervention 2 goal interventions scheduled/documen yaya in this visit Depression Disciplines: Skilled Disciplines Depression 06/29/2025 Active 1 goal linked to scheduled/documen yaya intervention 3 goal interventions scheduled/documen yaya in this visit Pain Disciplines: Core Disciplines Alteration in comfort 06/29/2025 Active 1 goal linked to scheduled/documen yaya intervention 1 goal intervention scheduled/documen yaya in this visit Wound Education and Management Disciplines: Core Disciplines Knowledge deficit related to wound management and risk of infection. 06/29/2025 Active 1 goal linked to scheduled/documen yaya intervention 1 goal intervention scheduled/documen yaya in this visit Goals Goal Associated Problem Outcome Goal Met? Visit Notes Understand and follow medication therapy Description: Patient/Caregiver will verbalize understanding of purpose, side effects, and medication regimen in 4 weeks as evidenced by taking all medications as prescribed and no medication errors. Medications No Demonstrate safe oxygen usage Description: Demonstrate safe oxygen usage in 2 weeks. Oxygen Safety Education No Measure vital signs during every home health visit during episode of care Description: Home territory manager general sales to measure vital signs during every home health visit during episode of care. Monitor patient's vital signs every home health visit No Verbalize signs of infection Description: Patient/caregiver will demonstrate knowledge of infection prevention strategies by verbalizing signs and symptoms of infection. Infection Prevention No Demonstrate fall and safety precautions Description: Patient/caregiver maintains safe home environment as evidenced by remaining free from falls, injury due to falls, demonstrating safety precautions, and identifying strategies to reduce falls by 07/29/25 Fall Precautions/Safety Concerns No Understanding of disease process Description: Patient/caregiver will demonstrate understanding of disease process by verbalizing signs and symptoms, preventative measures, and when to report to home care agency or provider. Knowledge Deficit - Other Disease Process and Management No Demonstrate knowledge of depression Description: Patient/caregiver to demonstrate knowledge of depression as evidence by verbalization of signs and symptoms of depression and when to report to physician. Depression No Report that pain has been reduced or controlled Description: Patient/caregiver/family will verbalize satisfaction with the patients level of pain and symptom control. Pain No Knowledgeable of Wound Management Description: Patient/caregiver will be knowledgeable on management of wound and when to seek medical attention as evidenced by progressive wound healing and patient/caregiver ability to verbalize signs and symptoms to report to physician or Home Health Agency. Patien t will remain free of infection and able to recognize signs of infection as long as alteration in skin integrity exists or until patient is discharged from home health services. Wound Education and Management No Interventions Intervention Associated Problem/Goal Status Variance Visit Notes Instruct on Medication Management Description: Assess patient/caregiver ability to demonstrate management of medications, steps to obtain new/refills of medications and identification of new or changed medications. Assess patient/caregiver ability to verbalize accurate dose/route/frequency/reas on for medication, how to evaluate effectiveness of medication, ongoing lab work needed to ensure therapeutic dosing, drug/food interactions, side effects/adverse reactions, contraindications for medications and known drug allergies. Evaluate the effectiveness of current treatment regimen and notify the appropriate healthcare provider for the need for changes in the plan of care. Problem:Medications Goal:Understand and follow medication therapy Performed Instructed patient on signs and symptoms related to medication regimen to report to provider. Assessed patient/caregiver ability to demonstrate management of medications safely Assessed patient/caregiver about ability to verbalize accurate dose/route/ frequency/reason for medication for the following medication(s) xarelto Follow up needs: none, independent. Patient verbalizes understanding of medication management. Instruct on High Risk Medications Description: Instruct patient/caregiver on oral or injectable high-risk medications, including: anticonvulsant, antiretroviral, anticoagulant, antibiotics, chemotherapeutic, hypoglycemic including insulin, immunosuppressant, antipsychotic, and opioids. Problem:Medications Goal:Understand and follow medication therapy Performed Hypoglycemia (oral): Patient and caregiver instructed on medication metformin and on signs and symptoms of hypoglycemia to report to Home Care Agency or MD such as dizziness, shaking, chills, altered mental status, cold/clammy skin. Follow up need s: none, independent. Patient verbalizes understanding of medication management. ------- Hypoglycemia (Injectable Insulin): Patient and caregiver instructed on medication lantus and lispro and on signs and symptoms of hypoglycemi a to report to Home Care Agency or PCP such as dizziness, shaking, chills, altered mental status, cold/clammy skin. Instructed patient and caregiver on Insulin Sliding Scale doses. Follow up needs: none, independent. Patient verbalizes understanding o f medication management. ------- Anticoagulant (oral): Instructed patient/caregiver on high risk medication xarelto Signs and symptoms of bleeding to report to Home Care Agency or MD such as; abdominal pain, black, tarry or brig ht red stool, coffee ground emesis, coughing up blood, unusual dark purple large bruising, frequent nose bleeds & bloody urine. Avoid falls and report any falls to Home Care Agency or PCP. Foods high in Vitamin K can alter the effects of the medication. Follow up needs: none, independent. Patient verbalizes understanding of medication management. ------- Oxygen Safety Education Description: Instruct patient/caregiver on oxygen use and safety precautions such as no smoking, posting oxygen sign, staying at least 10 feet from open flames, avoid using oil-based products, and proper storage of portable tanks. Instruct patient to call [employer] with oxygen issues or malfunctions. Problem:Oxygen Safety Education Goal:Demonstrate safe oxygen usage Performed Instructed patient and family in oxygen safety such as never smoke while using oxygen, stay at least 10 feet away from open flames or someone smoking, post no smoking sign, do not use an oil-based product like petroleum jelly, petroleum-based creams, or lotions on your lips or hands. Store oxygen tanks in a well-ventilated area and keep all flammable materials away from oxygen equipment. Instructed patient on how to reach [employer] for oxygen issues or malfunctions. Patient and family are able to verbalize safety precautions correctly. Monitor Vital Signs Description: Monitor blood pressure, pulse, oxygen saturation, respirations Problem:Monitor patient's vital signs every home health visit Goal:Measure vital signs during every home health visit during episode of care Performed Completed. VSS. Educate Patient on Infection Prevention Description: Instruct patient on signs and symptoms of infection IE: fever, odor, change in color, increased amount of drainage, purulent drainage, warmth. Problem:Infection Prevention Goal:Verbalize signs of infection Performed Educate Family on Infection Prevention Description: Instructed family on signs and symptoms of infection IE: fever, odor, change in color, increased amount of drainage, purulent drainage, warmth. Problem:Infection Prevention Goal:Verbalize signs of infection Performed High Fall Risk Precautions Description: Instruct patient/caregiverwife Blanca to use proper lighting in all areas, stand/sit up slowly, use appropriate footwear when walking, use proper assistive devices, and to keep pathways clear of cords and clutter to prevent falls. Remove/secure throw rugs . Educate patient on medications and disease processes that increase fall risk, using corrective lenses as prescribed, placing hard to reach items within reach, what to do in the event of a fall and to report any falls to the home health agency. Problem:Fall Precautions/Safety Concerns Goal:Demonstrate fall and safety precautions Performed Instructed patient/caregiver on fall risk prevention including: using proper lighting in all areas, standing/sitting up slowly, using appropriate footwear when walking, using proper assistive devices and keeping pathways clear of cords and clutter Patient and Caregiver verbalized understanding Notification of Complications Description: Instruct patient/caregiver when to notify SN/MD of complications Problem:Knowledge Deficit - Other Disease Process and Management Goal:Understanding of disease process Performed Instruct on Disease Process Description: Instruct patient/caregiver on disease process and management PAD, DM, CAD, ILD. Problem:Knowledge Deficit - Other Disease Process and Management Goal:Understanding of disease process Performed Instruct on Depression Description: Instruct patient/caregiver on signs/symptoms of depression. Problem:Depression Goal:Demonstrate knowledge of depression Performed Assess signs/symptoms of Depression Description: Assess signs/symptoms of depression and emotional well-being. Problem:Depression Goal:Demonstrate knowledge of depression Performed Assess depression Description: Assess depression. Problem:Depression Goal:Demonstrate knowledge of depression Performed Instruct on pain management techniques Description: Instruct in pharmacologic and nonpharmacologic pain management techniques. Problem:Pain Goal:Report that pain has been reduced or controlled Performed Educate on Wound Care Management Description: Instruct patient/caregiver on wound management including: ordered wound care, utilizing clean technique, appropriate hand hygiene, and disposal of dressings. Instruct patient/caregiver on nutrition and hydration needs for altered skin integrity, signs an d symptoms of infection and/or wound deterioration to report to home health agency and or physician. Problem:Wound Education and Management Goal:Knowledgeable of Wound Management Performed Instructed patient/caregiver on wound management including appropriate hand hygiene and signs and symptoms of infection and/or wound deterioration to report to home health agency and/or physician Patient and Caregiver verbalized understanding uti lizing clean technique, appropriate hand hygiene and signs and symptoms of infection and/or wound deterioration to report to home health agency and/or physician documented in this encounter Care Teams Gas Operations Superintendent Relationship Specialty Start Date End Date Harjeet Cintron MD [address] [place] [address] PCP - General 01/20/24 Amando Cintron MD Surgeon Vascular Surgery 08/25/21 documented as of this encounter
--- OUTSIDE RECORDS SUMMARY | 2025-06-29 11:00 | XMS_ITS | Encounter Summary ---
Author Organization [facility] Healthcare Address [address] [place] [address] Care Team Providers Care Executive Business Coach Name Role Phone Amando Cintron MD Unavailable Harjeet Cintron MD Primary Care Prov ider Reason for Visit * Reason Comments Leg Pain * Auth/Cert (Routine) Specialty Diagnoses / Procedures Referred By Contac t Referred To Contact Referral ID Status Reason Start Date Expiration Date Visits Re quested Visits Authorized [id number] 1 1 Encounter Details Date Type Department Care Team (Latest Contact Info) Description 06/29/2025 11:00 AM SKIP TENDER Home Care Visit [facility] [address] [address] [address] [place] [address] [place] [phone] [address] SN OASIS START OF CARE Social History [...] often do you attend chur ch or taoist services? Never 05/11/2023 Do you belong to any clubs o r organizations such as mormon groups, unions, fraternal or athletic groups, or [...] place to sleep or slept in a correction (including now)? No 05/11/2023 AUDIT-C Answer Date [...] on file Legal Sex Male 1:17 AM SKIP TENDER Gender Identity Not on file Sexual Orientation Not on file documented as of this encounter Last Filed Vital Signs Vital Sign Reading Time Taken Comments Blood Pressure 108/50 06/29/2025 10:54 AM SKIP TENDER Pulse 67 06/29/2025 10:54 AM SKIP TENDER Temperature 36.3 C (97.3 F) 06/29/2025 10:54 AM SKIP TENDER Respiratory Rate 20 06/29/2025 10:54 AM SKIP TENDER Oxygen Saturation 99% 06/29/2025 10:54 AM SKIP TENDER Inhaled Oxygen Concentration - - Weight 70.3 kg (155 lb) 06/29/2025 10:54 AM SKIP TENDER Height 177.8 cm (5' 10) 06/29/2025 10:54 AM SKIP TENDER Body Mass Index 22.24 06/29/2025 10:54 AM SKIP TENDER documented in this encounter Functional Status * BP Location Answer Date of Assessment Author Right arm 07/14/2025 2:08 PM Martha Ayon CMA * BP Location Answer Date of Assessment Author Right arm 07/14/2025 2:08 PM Martha Aoyn CMA documented as of this encounter Miscellaneous Notes * Home Health/Infusion Deann Sharma RN - 06/29/2025 10:09 AM SKIP TENDER SITUATION Focus of Care: Arterial insufficiency of [...] recommendations. [facility] MD appt 07/11/25 TENDER TENDER * Home Health Plan for Next Visit [...] infection prevention education, DM education, nutrition education TENDER documented in this encounter Plan of Treatment [...] take, when to call CM or provider. [facility] Chronic Pain Care Plan Chronic Care Management No change(09/20 9:23 AM SKIP TENDER) No Marla Sheppard RN Note: Problem: Chronic [...] -SN OASIS Start o f Care Discipline -Jail Problems Problem Description Start Date Status Goals Interve ntions Medications Disciplines: Jail Management of home medications 06/29/2025 Active 1 goal linked to scheduled/documen yaya intervention 2 goal interventions scheduled/documen yaya in this visit Oxygen Safety Education Disciplines: Skilled Disciplines Oxygen Safety Education 06/29/2025 Active 1 goal linked to scheduled/documen yaya intervention 1 goal intervention scheduled/documen yaya in this visit Monitor patient's vital signs every home health visit Disciplines: Skilled Disciplines, SN, PT, OT, ACID DIPPER, IDENTIFICATION OFFICER Monitor patient's vital signs every home health [...] visit during episode of care Description: Home inclusion paraeducator to measure vital signs during every home [...] of portable tanks. Instruct patient to call [employer] with oxygen issues or malfunctions. Problem:Oxygen Safety [...] equipment. Instructed patient on how to reach [employer] for oxygen issues or [...] physician documented in this encounter Care Teams Executive Business Coach Relationship Specialty Start Date End Date Harjeet Cintron MD [address] [place] [address] PCP - General 01/20/24 Amando Cintron MD Surgeon Vascular Surgery 08/25/21 documented as of this encounter
--- OUTSIDE RECORDS SUMMARY | 2025-06-29 11:00 | XMS_ITS | Encounter Summary ---
Author Organization [facility] Healthcare Address [address] [place] [address] Care Team Providers Care Pie Dough Roller Name Role Phone Amando Cintron MD Unavailable Harjeet Cintron MD Primary Care Prov ider Reason for Visit * Reason Comments Leg Pain * Auth/Cert (Routine) Specialty Diagnoses / Procedures Referred By Contac t Referred To Contact Referral ID Status Reason Start Date Expiration Date Visits Re quested Visits Authorized [id number] 1 1 Encounter Details Date Type Department Care Team (Latest Contact Info) Description 06/29/2025 11:00 AM WAXER Home Care Visit [facility] [address] [address] [address] [place] [address] [place] [phone] [address] SN OASIS START OF CARE Social History [...] often do you attend chur ch or yazdanism services? Never 05/11/2023 Do you belong to any clubs o r organizations such as quaker groups, unions, fraternal or athletic groups, or [...] place to sleep or slept in a [place] [facility] [place] facility (including now)? No 05/11/2023 AUDIT-C Answer Date [...] on file Legal Sex Male 1:17 AM WAXER Gender Identity Not on file Sexual Orientation Not on file documented as of this encounter Last Filed Vital Signs Vital Sign Reading Time Taken Comments Blood Pressure 108/50 06/29/2025 10:54 AM WAXER Pulse 67 06/29/2025 10:54 AM WAXER Temperature 36.3 C (97.3 F) 06/29/2025 10:54 AM WAXER Respiratory Rate 20 06/29/2025 10:54 AM WAXER Oxygen Saturation 99% 06/29/2025 10:54 AM WAXER Inhaled Oxygen Concentration - - Weight 70.3 kg (155 lb) 06/29/2025 10:54 AM WAXER Height 177.8 cm (5' 10) 06/29/2025 10:54 AM WAXER Body Mass Index 22.24 06/29/2025 10:54 AM WAXER documented in this encounter Functional Status * BP Location Answer Date of Assessment Author Right arm 07/14/2025 2:08 PM Martha Ayon CMA * BP Location Answer Date of Assessment Author Right arm 07/14/2025 2:08 PM Martha Ayon CMA documented as of this encounter Miscellaneous Notes * Home Health/Infusion Deann Sharma RN - 06/29/2025 10:09 AM WAXER SITUATION Focus of Care: Arterial insufficiency of [...] recommendations. [facility] MD appt 07/11/25 R R * Home Health Plan for Next Visit [...] infection prevention education, DM education, nutrition education R documented in this encounter Plan of Treatment [...] take, when to call CM or provider. [facility] Chronic Pain Care Plan Chronic Care Management No change(09/20 9:23 AM WAXER) No Marla Sheppard RN Note: Problem: Chronic [...] -SN OASIS Start o f Care Discipline -Detention Problems Problem Description Start Date Status Goals Interve ntions Medications Disciplines: Detention Management of home medications 06/29/2025 Active 1 goal linked to scheduled/documen yaya intervention 2 goal interventions scheduled/documen yaya in this visit Oxygen Safety Education Disciplines: Skilled Disciplines Oxygen Safety Education 06/29/2025 Active 1 goal linked to scheduled/documen yaya intervention 1 goal intervention scheduled/documen yaya in this visit Monitor patient's vital signs every home health visit Disciplines: Skilled Disciplines, SN, PT, OT, WOOL HAT SANDING MACHINE OPERATOR, SUPERVISOR SPECIAL SERVICES Monitor patient's vital signs every home health [...] visit during episode of care Description: Home addiction social worker to measure vital signs during every home [...] of portable tanks. Instruct patient to call [employer] with oxygen issues or malfunctions. Problem:Oxygen Safety [...] equipment. Instructed patient on how to reach [employer] medical equipment company for oxygen issues or [...] physician documented in this encounter Care Teams Pie Dough Roller Relationship Specialty Start Date End Date Harjeet Cintron MD [address] [place] [address] PCP - General 01/20/24 Amando Cintron MD Surgeon Vascular Surgery 08/25/21 documented as of this encounter
--- OUTSIDE RECORDS SUMMARY | 2025-07-15 14:45 | XMS_ITS | Encounter Summary ---
Author Organization [facility] Healthcare Address [address] [place] [address] Care Team Providers Care Heating And Cooling Systems Engineer Name Role Phone Amando Cintron MD Unavailable [phone] Harjeet Cintron MD Primary Care Prov ider Reason for Referral * Cardiology (Routine) - Closed Specialty Diagnoses / Procedures Referred By Contac t Referred To Contact Diagnoses Arterial insufficiency of lower extremity Procedures Transthoracic Echo (TTE) Complete W Doppler/CF Anabell Cohen MD [address] [place] [address] Phone: tel: fax: [facility] (All Locations) Referral ID Status Reason Start Date Expiration Date Visits Re quested Visits Authorized [id number] Closed 06/20/2025 07/20/2026 1 1 R CANER Reason for Visit * Cardiology (Routine) - Closed Specialty Diagnoses / Procedures Referred By Contac t Referred To Contact Diagnoses Arterial insufficiency of lower extremity Procedures Transthoracic Echo (TTE) Complete W Doppler/CF Anabell Cohen MD [address] [place] [address] Phone: tel: fax: [facility] (All Locations) Referral ID Status Reason Start Date Expiration Date Visits Re quested Visits Authorized [id number] Closed 06/20/2025 07/20/2026 1 1 Encounter Details Date Type Department Care Team (Latest Contact Info) Description 07/15/2025 2:45 PM CHAIR CANER - 07/15/2025 11:59 PM CHAIR CANER Hospital Encounter [facility] Cardiac Diagnostic Lab [address] [facility] [address] [place] [address] Arterial insufficiency of lower extremity Discharge Disposition: Discharge to home or self care Social History Tobacco Use Types Packs/Day Years [...] often do you attend chur ch or moravian services? Never 05/11/2023 Do you belong to [...] place to sleep or slept in a penitentiary (including now)? No 05/11/2023 AUDIT-C Answer Date [...] on file Legal Sex Male 1:17 AM CHAIR CANER Gender Identity Not on file Sexual Orientation Not on file documented as of this encounter Medications at Time of Discharge acetaminophen 500 mg capsuleIndication s:Pain Take 1,000 mg by mouth every 6 (six) hours as needed for mild pain (pain scale 1-4). Indications: pain albuterol HFA (Ventolin HFA) 90 mcg/actuation inhalerIndication s:ILD Inhale 2 puffs every 4 (four) hours as needed for wheezing or shortness of breath 8 g 5 07/11/2025 ascorbic acid (ascorbic acid with wendi hips) 500 mg tablet,chewableIn dications:Vitamin C Deficiency Take 1 tablet/chew tab by mouth daily aspirin 81 mg enteric coated tabletIndications :prevention of thrombosis Take 1 tablet (81 mg total) by mouth daily 90 tablet 3 07/11/2025 atorvastatin (LIPITOR) 80 mg tabletIndications :arteriosclerotic vascular disease,hyperlipi demia Take 1 tablet (80 mg total) by mouth daily 90 tablet 3 02/07/2025 BD Ultra-Fine Mini Pen Needle 31 gauge x 3/16 needleIndications :DM2 Inject 5 mm as directed 5 (five) times a day (with meals, nightly, and 2 AM) 100 each 3 09/27/2023 blood glucose diagnostic stripIndications: DM2 Please check blood sugar 3 times daily 200 each 3 05/04/2023 blood-glucose meter miscIndications:D M2 1 unit marking on U-100 syringe 3 (three) times a day Please check blood sugars 3x daily 1 each 05/04/2023 blood-glucose sensor (Dexcom G7 Sensor) device Will use 3 sensors per month to check blood sugar continuously. 3 each 11 07/01/2025 blood-glucose,rec eiver,cont (Dexcom G7 Informatics Consultant) misc For continuous use with Dexcom G7 sensors 1 each 07/01/2025 carvediloL (COREG) 6.25 mg tabletIndications :hypertension Take 1 tablet (6.25 mg total) by mouth 2 (two) times a day with meals 180 tablet 3 05/07/2024 cephalexin (KEFLEX) 500 mg capsuleIndication s:Skin/Soft Tissue Infection Take 1 capsule (500 mg total) by mouth 3 (three) times a day for 14 days 42 capsule 07/14/2025 cholecalciferol (VITAMIN D-3) 5,000 unit capsuleIndication s:Vitamin D Deficiency Take 2 capsules by mouth daily cyanocobalamin (Vitamin B-12) 1,000 mcg tabletIndications :Prevention of Vitamin B12 Deficiency Take 1,000 mcg by mouth daily. Indications: prevention of vitamin B12 deficiency evolocumab (REPATHA) syringe syringe Inject 1 mL (140 mg total) under the skin every 2 (two) weeks 2 mL 11 03/06/2025 fenofibrate (TRIGLIDE) 160 mg tabletIndications :hyperlipidemia Take 1 tablet (160 mg total) by mouth daily 90 tablet 3 06/20/2025 ferrous sulfate 325 mg (65 mg of elemental iron) tabletIndications :Iron Deficiency Anemia Take 1 tablet (65 mg of elemental iron total) by mouth 2 (two) times a day furosemide (LASIX) 20 mg tabletIndications :Edema Take 1 tablet (20 mg total) by mouth daily 90 tablet 3 06/20/2025 6 gabapentin (NEURONTIN) 300 mg capsuleIndication s:Diabetic Peripheral Neuropathy TAKE 2 CAPSULES BY MOUTH 3 TIMES A DAY 180 capsule 5 02/28/2025 glucagon (Gvoke HypoPen 2-Pack) 1 mg/0.2 mL auto-injectorIndi cations:patient with diabetes mellitus at risk of hypoglycemia Inject 1 mg under the skin as needed (for use in case of emergency for hypoglycemia) 0.4 mL 2 02/07/2025 lancets 28 gauge miscIndications:D M2 1 Units 3 (three) times a day 100 each 3 09/20/2022 losartan (COZAAR) 25 mg tablet Take 1 tablet (25 mg total) by mouth daily 90 tablet 3 07/11/2025 metFORMIN (GLUCOPHAGE) 1,000 mg tabletIndications :type 2 diabetes mellitus Take 1 tablet (1,000 mg total) by mouth 2 (two) times a day with meals 180 tablet 3 02/07/2025 multivitamin tabletIndications :Vitamin Deficiency Prevention Take 1 tablet by mouth naloxone (NARCAN) 4 mg/actuation spray,non-aerosol Administer 1 spray into affected nostril(s) as needed for opioid reversal or respiratory depression Call 911. Administer a single spray in one nostril. Repeat every 3 minutes as needed if no or minimal response. 2 each 06/29/2023 nitroglycerin (NITROSTAT) 0.4 mg SL tabletIndications :acute episode of anginal pain Take as needed for anginal chest pain 100 tablet 3 07/11/2025 oxygenIndications :Dyspnea Administer 3 L/min into each nostril continuously at 180,000 mL/hr pantoprazole DR (PROTONIX) 40 mg EC tabletIndications :Stress Ulcer Prophylaxis Take 1 tablet (40 mg total) by mouth daily 90 tablet 3 11/22/2024 predniSONE (DELTASONE) 5 mg tabletIndications :Interstitial Lung Disease Take 1 tablet (5 mg) by mouth daily 90 tablet 3 07/11/2025 psyllium husk (KONSYL) 6 gram packet Take 1 packet (6 g total) by mouth daily 30 packet 2 06/02/2024 rivaroxaban (XARELTO) 20 mg tabletIndications :atrial fibrillation,Veno us Thrombosis Take 1 tablet (20 mg total) by mouth daily with breakfast 90 tablet 3 08/27/2024 sodium chloride-aloe vera spray,non-aerosol Indications:rhini tis Administer 1 spray into each nostril every 2 (two) hours as needed (dry nose) 88 mL 3 09/06/2024 tamsulosin (FLOMAX) 0.4 mg extended release capsuleIndication s:benign prostatic hyperplasia with lower urinary tract sx Take 1 capsule (0.4 mg total) by mouth every morning 90 capsule 3 11/22/2024 traZODone (DESYREL) 150 mg tabletIndications :insomnia associated with depression Take 150 mg by mouth nightly. Indications: insomnia associated with depression zinc gluconate 50 mg tabletIndications :Zinc Deficiency Take 50 mg by mouth daily. Indications: deficiency of zinc documented as of this encounter Discharge Disposition Disposition Code Departure Means Destination Discharge to home or self care documented in this encounter Plan of Treatment Scheduled Procedures Name Priority Associated Diagnoses Date/Ti mo COLONOSCOPY Iron deficiency anemia, unspecified iron deficiency [...] No change(02/11 1:04 PM CDT) No Zahira Jo RN Note: Problem: Altered Health Maintenance related [...] Care Management On track(2019 1:04 PM CDT) No Danae Flood Note: Problem: Medication management Interventions: - Assess [...] take, when to call CM or provider. CCM Chronic Pain Care Plan Chronic Care Management No change(09/20 9:23 AM CHAIR CANER) No Marla Sheppard, RN Note: Problem: Chronic Pain// ABD pain, legs Goals: 1. Minimize further functional decline 2. Maximize quality of life 3. Control pain Strategies: - Activity/exercise program recommendation - Conservative stepwise pain medicine strategy with multi-disciplinary approach - Recommend healthy lifestyle strategies and compensatory methods as needed documented as of this encounter Procedures Procedure Name Priority Date/Time Associated Diagnosis Comments TRANSTHORACIC ECHO (TTE) COMPLETE W DOPPLER/CF W CONTRAST Routine 07/15/2025 4:12 PM CHAIR CANER Arterial insufficiency of lower extremity documented in this encounter Results * TRANSTHORACIC ECHO (TTE) COMPLETE W DOPPLER/CF W CONTRAST (07/15/2025 4:12 PM CHAIR CANER) EF Mod BP 52 % CONS SCIMAGE Anatomical Region Laterality Modality Ultrasound 07/15/2025 2:56 PM CHAIR CANER Narrative 07/16/2025 10:42 AM CHAIR CANER [facility] Card[place] [address] [place] [address] Transthoracic Echocardiographic Report Patient Name: DOMINGO COOPER E : 1955 (70y ) Sex: M Study Date: 07/15/2025 02:56:29 PM Ht(Inch): 70 Wt(Lb): 158.95 BSA: 1.89 Sanitary Engineer: RAMESH LiMIR Location: [facility] Order Provider: ANABELL COHEN Heart Rate: 63 BMI: 22.8 BP: 118 / 43 Ref Provider: ANABELL COHEN PROCEDURES: Echocardiographic Report: Transthoracic complete echo with strain imaging and contrast, 2D, spectral and tissue Doppler, color flow Doppler, M-mode. Contrast: Contrast Enhancement was Employed: After initial imaging due to sub- optimal quality related to co-morbidity defined by patient's body habitus, due to suboptimal image quality with inadequate visualization of at least 2 of 16 LV wall segments in any view after initial imaging. Perflutren contrast was administered using the volume necessary to obtain adequate images and. 0.6 ml Optison Administered, (2.4 ml wasted). INDICATIONS: I73.9 Peripheral vascular disease, unspecified. CONCLUSIONS: 1. Severely dilated left ventricle cavity based on volume index. Eccentric LV hypertrophy. Normal left ventricular systolic function. The Ejection Fraction (Wheat's) is measured at 52 %. The average global longitudinal strain is abnormal. 2. Right ventricular dilatation. Normal right ventricular systolic function. TV S'= 0.12 m/s (normal function). 3. Moderate . 4. The estimated pulmonary artery systolic pressure is 63.0 mmHg. Severe pulm HTN. ATTESTATION: I have personally reviewed and interpreted this study without fellow or resident. DISCLAIMER: The study images and the final report will be retained in the patient chart by the Echo Laboratory for the legally required time period. This chart constitutes the legal record of any testing performed. FINDINGS: Left Ventricle: Severely dilated left ventricle cavity based on volume index. Eccentric LV hypertrophy. Normal left ventricular systolic function. The Ejection Fraction (Wheat's) is measured at 52 %. The average global longitudinal strain is abnormal. The LV global strain is: -11.0 %. Right Ventricle: Right ventricular dilatation. Normal right ventricular systolic function. TV S'= 0.12 m/s (normal function). Left Atrium: Severely dilated left atrium. Right Atrium: Right atrial dilatation. Mitral Valve: Mild mitral annular calcification. Mild mitral valve regurgitation. Aortic Valve: Normal trileaflet aortic valve. Moderately calcified aortic valve leaflets. Moderate aortic valve regurgitation. The mean transaortic gradient is 17 mmHg. The aortic valve area by the continuity equation (using VTI) is 1 cm2. Aortic valve dimensionless index is 0.32. Moderate . Tricuspid Valve: Normal tricuspid valve structure. Mild tricuspid regurgitation. The estimated pulmonary artery systolic pressure is 63.0 mmHg. Severe pulm HTN. Pulmonic Valve: Normal pulmonic valve structure. No pulmonic regurgitation. Pericardium: Normal pericardium without pericardial effusion. Aorta: Normal aortic root size at sinuses of Valsalva. Dilation of the ascending aorta when indexed. IVC: IVC is dilated. The IVC was <2.1 cm and collapsibility <50%. (est. RA pressure 6-10 mmHg). MEASUREMENTS: 2D/MM Value Range Doppler Value Range LVIDd 2D 6.0 cm [ 4.2 - 5.8 ] AV Peak Shaheen 2.7 m/s [ 1.0 - 1.7 ] LVIDs 2D 4.9 cm [ 2.5 - 4.0 ] AV Peak PG 29 mmHg IVSd 2D 1.2 cm [ 0.6 - 1.0 ] AV Mean PG 17 mmHg LVPWd 2D 1.2 cm [ 0.6 - 1.0 ] AV VTI 63 cm LV Thickness Ratio 1.0 LVOT Peak Shaheen 0.9 m/s [ 0.7 - 1.1 ] LV FS 2D 18.28 % [ 25.00 - 43.00 ] LVOT Peak PG 3 mmHg LV Mass 2D 320.93 g LVOT Mean PG 2 mmHg LV Mass Index 2D 169.52 g/m2 LVOT VTI 20 cm RWT 0.40 LVOT Diam 2.0 cm EDV Mod BP 204 ml [ 62 - 150 ] MAKENZIE VTI 1.0 cm2 LV EDV Index 108 ml/m2 LVOT/AV VTI 0.32 - Dimensionless index (DVI) ESV Mod BP 98 ml [ 21 - 61 ] AI Peak Shaheen 3.7 m/s EF Mod BP 52 % [ 52 - 72 ] AI Peak PG 56 mmHg LV GLS -11.0 % [ -25.0 - -18.0 ] AI Decel Time 1512 sec LA Length 4C 6.9 cm AI Decel [place] 3 m/s2 LA Length 2C 6.8 cm AI PHT 438 msec LA Volume BP 113 ml RV S` 12.5 cm/sec LA Volume Index 60 ml/m2 [ 16 - 34 ] TR Peak Shaheen 3.4 m/s [ 1.0 - 2.8 ] RV Base Dimen 2D 4.3 cm [ 2.5 - 4.2 ] TR Peak PG 46 mmHg RV Mid Dimen 2D 3.1 cm TR VTI 111 cm RV ED Area 20 cm2 [ 10 - 24 ] RV ES Area 12 cm2 [ 3 - 15 ] RV FAC 39 % [ 35 - 63 ] TAPSE 2.5 cm [ 1.7 - 5.0 ] RA Volume 63 ml RA Volume Index 33 ml/m2 IVC Diam 2.0 cm IVC Collapse 22.5 % AoR Diam 2D 3.6 cm [ 3.1 - 3.7 ] Ao Root Index 1.9 cm/m2 [ 1.0 - 2.0 ] Asc Ao Diam 2D 4.0 cm Asc Ao Index 2.1 cm/m2 Electronically Signed By: Mello Gomez M.D. 07/16/2025 10:42:07 AM CHAIR CANER Procedure Note Mello Gomez MD PhD - 07/16/2025 [facility] Card[place] [address] [place] [address] Transthoracic Echocardiographic Report Patient Name: DOMINGO COOPER E : 1955 (70y ) Sex: M Study Date: 07/15/2025 02:56:29 PM Ht(Inch): 70 Wt(Lb): 158.95 BSA: 1.89 Sanitary Engineer: RAMESH Li,[facility] Location: [facility] Order Provider:ANABELL COHEN Heart Rate: 63 BMI: 22.8 BP: 118 / 43 Ref Provider: ANABELL COHEN PROCEDURES: Echocardiographic Report: Transthoracic complete echo with strain imagingand contrast, 2D, spectral and tissue Doppler, color flow Doppler, M-mode. Contrast: Contrast Enhancement was Employed: After initial imaging due tosub- optimal quality related to co-morbidity defined by patient's body habitus, due tosuboptimal image quality with inadequate visualization of at least 2 of 16 LV wallsegments in any view after initial imaging. Perflutren contrast was administered using thevolume necessary to obtain adequate images and. 0.6 ml Optison Administered, (2.4ml wasted). INDICATIONS: I73.9 Peripheral vascular disease, unspecified. CONCLUSIONS: 1. Severely dilated left ventricle cavity based on volume index. EccentricLV hypertrophy. Normal left ventricular systolic function. The EjectionFraction (Wheat's) is measured at 52 %. The average global longitudinal strain is abnormal. 2. Right ventricular dilatation. Normal right ventricular systolicfunction. TV S'= 0.12 m/s (normal function). 3. Moderate . 4. The estimated pulmonary artery systolic pressure is 63.0 mmHg. Severepulm HTN. ATTESTATION: I have personally reviewed and interpreted this study without fellow orresident. DISCLAIMER: The study images and the final report will be retained in the patientchart by the Echo Laboratory for the legally required time period. This chart constitutesthe legal record of any testing performed. FINDINGS: Left Ventricle: Severely dilated left ventricle cavity based on volumeindex. Eccentric LV hypertrophy. Normal left ventricular systolic function. The EjectionFraction (Wheat's) is measured at 52 %. The average global longitudinal strain isabnormal. The LV global strain is: -11.0 %. Right Ventricle: Right ventricular dilatation. Normal right ventricularsystolic function. TV S'= 0.12 m/s (normal function). Left Atrium: Severely dilated left atrium. Right Atrium: Right atrial dilatation. Mitral Valve: Mild mitral annular calcification. Mild mitral valveregurgitation. Aortic Valve: Normal trileaflet aortic valve. Moderately calcified aorticvalve leaflets. Moderate aortic valve regurgitation. The mean transaortic gradient is 17mmHg. The aortic valve area by the continuity equation (using VTI) is 1 cm2. Aortic valvedimensionless index is 0.32. Moderate . Tricuspid Valve: Normal tricuspid valve structure. Mild tricuspidregurgitation. The estimated pulmonary artery systolic pressure is 63.0 mmHg. Severe pulmHTN. Pulmonic Valve: Normal pulmonic valve structure. No pulmonicregurgitation. Pericardium: Normal pericardium without pericardial effusion. Aorta: Normal aortic root size at sinuses of Valsalva. Dilation of theascending aorta when indexed. IVC: IVC is dilated. The IVC was <2.1 cm and collapsibility <50%. (est. RApressure 6-10 mmHg). MEASUREMENTS: 2D/MM Value Range DopplerValue Range LVIDd 2D 6.0 cm [ 4.2 - 5.8 ] AV Peak Vel2.7 m/s [ 1.0 - 1.7 ] LVIDs 2D 4.9 cm [ 2.5 - 4.0 ] AV Peak PG29 mmHg IVSd 2D 1.2 cm [ 0.6 - 1.0 ] AV Mean PG17 mmHg LVPWd 2D 1.2 cm [ 0.6 - 1.0 ] AV VTI63 cm LV Thickness Ratio 1.0 LVOT Peak Vel0.9 m/s [ 0.7 - 1.1 ] LV FS 2D 18.28 % [ 25.00 - 43.00 ] LVOT Peak PG3 mmHg LV Mass 2D 320.93 g LVOT Mean PG2 mmHg LV Mass Index 2D 169.52 g/m2 LVOT VTI20 cm RWT 0.40 LVOT Diam2.0 cm EDV Mod BP 204 ml [ 62 - 150 ] MAKENZIE VTI1.0 cm2 LV EDV Index 108 ml/m2 LVOT/AV VTI0.32 - Dimensionless index (DVI) ESV Mod BP 98 ml [ 21 - 61 ] AI Peak Vel3.7 m/s EF Mod BP 52 % [ 52 - 72 ] AI Peak PG56 mmHg LV GLS -11.0 % [ -25.0 - -18.0 ] AI Decel [id number] sec LA Length 4C 6.9 cm AI Decel Slope3 m/s2 LA Length 2C 6.8 cm AI [id number] msec LA Volume BP 113 ml RV S`12.5 cm/sec LA Volume Index 60 ml/m2 [ 16 - 34 ] TR Peak Vel3.4 m/s [ 1.0 - 2.8 ] RV Base Dimen 2D 4.3 cm [ 2.5 - 4.2 ] TR Peak PG46 mmHg RV Mid Dimen 2D 3.1 cm TR [id number] cm RV ED Area 20 cm2 [ 10 - 24 ] RV ES Area 12 cm2 [ 3 - 15 ] RV FAC 39 % [ 35 - 63 ] TAPSE 2.5 cm [ 1.7 - 5.0 ] RA Dcecbs38 ml RA Volume Index33 ml/m2 IVC Diam2.0 cm IVC Collapse 22.5 % AoR Diam 2D 3.6 cm [ 3.1 - 3.7 ] Ao Root Index 1.9 cm/m2 [ 1.0 - 2.0 ] Asc Ao Diam 2D4.0 cm Asc Ao Index2.1 cm/m2 Electronically Signed By: Mello Gomez M.D. 07/16/2025 10:42:07 AM CHAIR CANER us Anabell Cohen MD CV ECHO PROCEDURES Final Result documented in this encounter Visit Diagnoses Diagnosis Arterial insufficiency of lower extremity documented in this encounter Administered Medications Inactive Administered Medications - up to 3 most recent administrations Medication Order MAR Action Action Date Dose Rate Site perflutren protein-a (OPTISON) injection 0.1-3 mL 0.1-3 mL, intravenous, Once in imaging, contrast, Starting on 07/15/25 at 1455, For 1 dose, Intra-Procedure (CV) Contrast Given 07/15/2025 4:12 PM CHAIR CANER 1.5 mL documented in this encounter Orders Medications Ordered That Aly ht Not Have Been Administered Count Last Ordered Date First Ordered Date perflutren protein-a (OPTISO N) injection 0.1-3 mL 1 07/15/2025 documented in this encounter Care Teams Heating And Cooling Systems Engineer Relationship Specialty Start Date End Date Harjeet Cintron MD [address] [place] [address] PCP - General 01/20/24 Amando Cintron MD Surgeon Vascular Surgery 08/25/21 documented as of this encounter
--- OUTSIDE RECORDS SUMMARY | 2025-07-15 14:45 | XMS_ITS | Encounter Summary ---
Author Organization [facility] Healthcare Address [address] [place] [address] Care Team Providers Care Psych Assistant Name Role Phone Amando Cintron MD Unavailable [phone] Harjeet Cintron MD Primary Care Prov ider Reason for Referral * Cardiology (Routine) - Closed Specialty Diagnoses / Procedures Referred By Contac t Referred To Contact Diagnoses Arterial insufficiency of lower extremity Procedures Transthoracic Echo (TTE) Complete W Doppler/CF Anabell Cohen MD [address] [place] [address] Phone: tel: fax: [facility] (All Locations) Referral ID Status Reason Start Date Expiration Date Visits Re quested Visits Authorized [id number] Closed 06/20/2025 07/20/2026 1 1 TH SERVICES RN Reason for Visit * Cardiology (Routine) - Closed Specialty Diagnoses / Procedures Referred By Contac t Referred To Contact Diagnoses Arterial insufficiency of lower extremity Procedures Transthoracic Echo (TTE) Complete W Doppler/CF Anabell Cohen MD [address] [place] [address] Phone: tel: fax: [facility] (All Locations) Referral ID Status Reason Start Date Expiration Date Visits Re quested Visits Authorized [id number] Closed 06/20/2025 07/20/2026 1 1 Encounter Details Date Type Department Care Team (Latest Contact Info) Description 07/15/2025 2:45 PM HEALTH SERVICES RN - 07/15/2025 11:59 PM HEALTH SERVICES RN Hospital Encounter [facility] Cardiac Diagnostic Lab [address] [facility] [address] [place] [address] Arterial insufficiency of lower extremity Discharge Disposition: [...] often do you attend chur ch or taoism services? Never 05/11/2023 Do you belong to any clubs o r organizations such as tenriism groups, unions, fraternal or athletic groups, or [...] place to sleep or slept in a group home (including now)? No 05/11/2023 AUDIT-C Answer Date [...] on file Legal Sex Male 1:17 AM HEALTH SERVICES RN Gender Identity Not on file Sexual Orientation [...] each 11 07/01/2025 blood-glucose,rec eiver,cont (Dexcom G7 [facility]) misc For continuous use with Dexcom G7 [...] Scheduled Procedures Name Priority Associated Diagnoses Date/Ti wa COLONOSCOPY Iron deficiency anemia, unspecified iron deficiency [...] Chronic Care Management No change(09/20 9:23 AM HEALTH SERVICES RN) No Marla Sheppard, RN Note: Problem: Chronic [...] DOPPLER/CF W CONTRAST Routine 07/15/2025 4:12 PM HEALTH SERVICES RN Arterial insufficiency of lower extremity documented in this encounter Results * TRANSTHORACIC ECHO (TTE) COMPLETE W DOPPLER/CF W CONTRAST (07/15/2025 4:12 PM HEALTH SERVICES RN) EF Mod BP 52 % CONS SCIMAGE Anatomical Region Laterality Modality Ultrasound 07/15/2025 2:56 PM HEALTH SERVICES RN Narrative 07/16/2025 10:42 AM HEALTH SERVICES RN [facility] [place] [address] [place] [address] Transthoracic Echocardiographic Report Patient Name: DOMINGO COOPER E : 1955 (70y ) Sex: M Study Date: 07/15/2025 02:56:29 PM Ht(Inch): 70 Wt(Lb): 158.95 BSA: 1.89 Chemist Instrumentation: RAMESH LiMIR Location: [facility] Order Provider: ANABELL COHEN Heart Rate: 63 [...] LA Length 4C 6.9 cm AI Decel [place] 3 m/s2 LA Length 2C 6.8 cm [...] By: Mello Gomez M.D. 07/16/2025 10:42:07 AM HEALTH SERVICES RN Procedure Note Mello Gomez MD PhD - 07/16/2025 [facility] [place] [address] [place] [address] Transthoracic Echocardiographic Report Patient Name: DOMINGO COOPER E : 1955 (70y ) Sex: M Study Date: 07/15/2025 02:56:29 PM Ht(Inch): 70 Wt(Lb): 158.95 BSA: 1.89 Chemist Instrumentation: RAMESH Li,[facility] Location: [facility] Order Provider:ANABELL COHEN Heart Rate: 63 BMI: [...] [ -25.0 - -18.0 ] AI Decel [id number] sec LA Length 4C 6.9 cm AI Decel [place]3 m/s2 LA Length 2C 6.8 cm AI [id number] msec LA Volume BP 113 ml RV S`12.5 cm/sec LA Volume Index 60 ml/m2 [ 16 - 34 ] TR Peak Vel3.4 m/s [ 1.0 - 2.8 ] RV Base Dimen 2D 4.3 cm [ 2.5 - 4.2 ] TR Peak PG46 mmHg RV Mid Dimen 2D 3.1 cm TR [id number] cm RV ED Area 20 cm2 [ 10 - 24 ] RV ES Area 12 cm2 [ 3 - 15 ] RV FAC 39 % [ 35 - 63 ] TAPSE 2.5 cm [ 1.7 - 5.0 ] RA Tmtkyl47 ml RA Volume Index33 ml/m2 IVC Diam2.0 cm IVC Collapse 22.5 % AoR Diam 2D 3.6 cm [ 3.1 - 3.7 ] Ao Root Index 1.9 cm/m2 [ 1.0 - 2.0 ] Asc Ao Diam 2D4.0 cm Asc Ao Index2.1 cm/m2 Electronically Signed By: Mello Gomez M.D. 07/16/2025 10:42:07 AM HEALTH SERVICES RN us Anabell Cohen MD CV ECHO PROCEDURES [...] Intra-Procedure (CV) Contrast Given 07/15/2025 4:12 PM HEALTH SERVICES RN 1.5 mL documented in this encounter Orders Medications Ordered That Aly ht Not Have Been Administered Count Last Ordered Date First Ordered Date perflutren protein-a (OPTISO N) injection 0.1-3 mL 1 07/15/2025 documented in this encounter Care Teams Psych Assistant Relationship Specialty Start Date End Date Harjeet Cintron MD [address] [place] [address] PCP - General 01/20/24 Amando Cintron MD Surgeon Vascular Surgery 08/25/21 documented as of this encounter
--- OUTSIDE RECORDS SUMMARY | 2025-07-15 14:45 | XMS_ITS | Encounter Summary ---
Author Organization [facility] Healthcare Address [address] [place] [address] Care Team Providers Care Contestant Coordinator Name Role Phone Amando Cintron MD Unavailable [phone] Harjeet Cintron MD Primary Care Prov ider Reason for Referral * Cardiology (Routine) - Closed Specialty Diagnoses / Procedures Referred By Contac t Referred To Contact Diagnoses Arterial insufficiency of lower extremity Procedures Transthoracic Echo (TTE) Complete W Doppler/CF Anabell Cohen MD [address] [place] [address] Phone: tel: fax: [facility] (All Locations) Referral ID Status Reason Start Date Expiration Date Visits Re quested Visits Authorized [id number] Closed 06/20/2025 07/20/2026 1 1 CLEANER Reason for Visit * Cardiology (Routine) - Closed Specialty Diagnoses / Procedures Referred By Contac t Referred To Contact Diagnoses Arterial insufficiency of lower extremity Procedures Transthoracic Echo (TTE) Complete W Doppler/CF Anabell Cohen MD [address] [place] [address] Phone: tel: fax: [facility] (All Locations) Referral ID Status Reason Start Date Expiration Date Visits Re quested Visits Authorized [id number] Closed 06/20/2025 07/20/2026 1 1 Encounter Details Date Type Department Care Team (Latest Contact Info) Description 07/15/2025 2:45 PM SACK CLEANER - 07/15/2025 11:59 PM SACK CLEANER Hospital Encounter [facility] Cardiac Diagnostic Lab [address] [facility] [address] [place] [address] Arterial insufficiency of lower extremity Discharge Disposition: [...] often do you attend chur ch or confucianism services? Never 05/11/2023 Do you belong to any clubs o r organizations such as buddhism groups, unions, fraternal or athletic groups, or [...] place to sleep or slept in a fdc (including now)? No 05/11/2023 AUDIT-C Answer Date [...] on file Legal Sex Male 1:17 AM SACK CLEANER Gender Identity Not on file Sexual Orientation [...] each 11 07/01/2025 blood-glucose,rec eiver,cont (Dexcom G7 Cost Coordinator) misc For continuous use with Dexcom G7 [...] Scheduled Procedures Name Priority Associated Diagnoses Date/Ti tn COLONOSCOPY Iron deficiency anemia, unspecified iron deficiency [...] Chronic Care Management No change(09/20 9:23 AM SACK CLEANER) No Marla Sheppard, RN Note: Problem: Chronic [...] DOPPLER/CF W CONTRAST Routine 07/15/2025 4:12 PM SACK CLEANER Arterial insufficiency of lower extremity documented in this encounter Results * TRANSTHORACIC ECHO (TTE) COMPLETE W DOPPLER/CF W CONTRAST (07/15/2025 4:12 PM SACK CLEANER) EF Mod BP 52 % CONS SCIMAGE Anatomical Region Laterality Modality Ultrasound 07/15/2025 2:56 PM SACK CLEANER Narrative 07/16/2025 10:42 AM SACK CLEANER [facility] Cardiac [place] [address] [place] [address] Transthoracic Echocardiographic Report Patient Name: DOMINGO COOPER E : 1955 (70y ) Sex: M Study Date: 07/15/2025 02:56:29 PM Ht(Inch): 70 Wt(Lb): 158.95 BSA: 1.89 Application Support Developer: RAMESH LiMIR Location: [facility] Order Provider: ANABELL COHEN Heart Rate: 63 BMI: 22.8 BP: 118 / 43 Ref Provider: ANBAELL COHEN PROCEDURES: Echocardiographic Report: Transthoracic complete echo [...] LA Length 4C 6.9 cm AI Decel [place] 3 m/s2 LA Length 2C 6.8 cm [...] By: Mello Gomez M.D. 07/16/2025 10:42:07 AM SACK CLEANER Procedure Note Mello Gomez MD PhD - 07/16/2025 [facility] Cardiac [place] [address] [place] [address] Transthoracic Echocardiographic Report Patient Name: DOMINGO COOPER E : 1955 (70y ) Sex: M Study Date: 07/15/2025 02:56:29 PM Ht(Inch): 70 Wt(Lb): 158.95 BSA: 1.89 Application Support Developer: RAMESH Li,[facility] Location: [facility] Order Provider:ANABELL COHEN Heart Rate: 63 BMI: [...] [ -25.0 - -18.0 ] AI Decel [id number] sec LA Length 4C 6.9 cm AI Decel [place]3 m/s2 LA Length 2C 6.8 cm AI [id number] msec LA Volume BP 113 ml RV S`12.5 cm/sec LA Volume Index 60 ml/m2 [ 16 - 34 ] TR Peak Vel3.4 m/s [ 1.0 - 2.8 ] RV Base Dimen 2D 4.3 cm [ 2.5 - 4.2 ] TR Peak PG46 mmHg RV Mid Dimen 2D 3.1 cm TR IMU015 cm RV ED Area 20 cm2 [ 10 - 24 ] RV ES Area 12 cm2 [ 3 - 15 ] RV FAC 39 % [ 35 - 63 ] TAPSE 2.5 cm [ 1.7 - 5.0 ] RA Xoipdo88 ml RA Volume Index33 ml/m2 IVC Diam2.0 cm IVC Collapse 22.5 % AoR Diam 2D 3.6 cm [ 3.1 - 3.7 ] Ao Root Index 1.9 cm/m2 [ 1.0 - 2.0 ] Asc Ao Diam 2D4.0 cm Asc Ao Index2.1 cm/m2 Electronically Signed By: Mello Gomez M.D. 07/16/2025 10:42:07 AM SACK CLEANER us Anabell Cohen MD CV ECHO PROCEDURES [...] Intra-Procedure (CV) Contrast Given 07/15/2025 4:12 PM SACK CLEANER 1.5 mL documented in this encounter Orders Medications Ordered That Aly ht Not Have Been Administered Count Last Ordered Date First Ordered Date perflutren protein-a (OPTISO N) injection 0.1-3 mL 1 07/15/2025 documented in this encounter Care Teams Contestant Coordinator Relationship Specialty Start Date End Date Harjeet Cnitron MD [address] [place] [address] PCP - General 01/20/24 Amando Cintron MD Surgeon Vascular Surgery 08/25/21 documented as of this encounter
--- NOTE | ~2025-07-16 | XR_ITS ---
EXAM/PROCEDURE: XR lg joint inject/asp w image HISTORY: T84.84XA - Pain due to internal orthopedic prosthetic dev... COMPARISON: None available. Fluoroscopy time: 0.1 minutes DAP: 0.05 Disla per square centimeter TECHNIQUE: Standard technique for fluoroscopic guided intra-articular aspiration performed. Following informed consent and timeout, the right knee was prepped and draped in sterile fashion. Approximately 2 mL of 2% lidocaine without epinephrine administered locally. In 18-gauge 1.5 inch needle was then advanced via lateral subpatellar approach with prompt return of thick/viscous yellowish fluid. No malodor. The fluid did not appear frankly purulent. Approximately 20 mL were drained with aspiration. No additional fluid could be aspirated. Fluid was then sent to the lab for appropriate analysis. No immediate complication. IMPRESSION: Patient status post right knee joint aspiration with no immediate complication as detailed above. Reviewed, dictated and finalized at location A. MIC SAW TENDER
[2025-07-16 12:26] LABS: Hematocrit 29.8 % (42.0-52.0); Hemoglobin 8.8 g/dL (14.0-18.0); Immature Granulocyte Percent A 0.5 % (0-0.5); Lymphocytes Absolute Auto 0.50 K/mm3 (0.9-3.2); Mean Corpuscular HGB Conc 29.5 g/dl (32-36); Mean Corpuscular Hemoglobin 29.2 pg (26-34); Mean Corpuscular Volume 99.0 fl (80-100); Nucleated Red Blood Cells Absolute Auto 0.000 K/mm3 (0.0-0.012); Nucleated Red Blood Cells Perc 0.0 % (0.0-0.2); Platelet Count Result 272 k/mm3 (150-375); Red Blood Count 3.01 M/mm3 (4.6-6.20); White Blood Count 9.1 K/mm3 (4.5-10.0)
[2025-07-16 12:47] LABS: Hypochromasia 1+
[2025-07-16 12:48] LABS: CRP 5.1 mg/dL (<1.0); Schistocytes None Seen
--- OUTSIDE RECORDS SUMMARY | 2025-07-16 13:14 | XMS_ITS | Encounter Summary ---
Author Organization [facility] Healthcare Address [address] [place] [address] Care Team Providers Care Airfield Services Officer Name Role Phone Amando Cintron MD Unavailable Alfredo Negron MD Primary Care Provide r Angélica Boyd RN Unavailable Unavailable Rosalva Prince RN Unavailable [phone] Nisha Lepe RN Unavailable [phone] Harjeet Cintron MD Primary Care Prov ider Encounter Details Date Type Department Care Team (Late st Contact Info) Description 03/22/2022 Telephone [facility] Primary Care Medicine Clinic [address] [facility] [address] [place] [address] Alfredo Negron MD [address] [facility] [address] [place] [address] Social History Tobacco Use Types Packs/Day Years Used Date Smoking Tobacco: Every Day Cigarettes 1 40 Smokeless Tobacco: Never Comments:refused counseling at this time Alcohol Use Standard Drinks/Week Comments Not Currently 0 (1 standard drink = 0.6 oz pur e alcohol) x32 years AUDIT-C Answer Date Recorded Q1: How often do you have a drink containing alcohol? Never 01/05/2022 Q2: How many drinks containi ng alcohol do you have on a typical day when you are drinking? Patient does not drink Q3: How often do you have si x or more drinks on one occasion? 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 Sex Male 1:17 AM BALING MACHINE TENDER Gender Identity Not on file Sexual Orientation Not on file documented as of this encounter Plan of Treatment Scheduled Procedures [...] (rather than stopping them without telling anyone). [facility] Chronic Pain Care Plan Chronic Care Management No change(09/20 9:23 AM BALING MACHINE TENDER) Marla Mcdaniel RN Note: Problem: Chronic Pain// ABD pain, legs Goals: 1. Minimize further functional decline 2. Maximize quality of life 3. Control pain Strategies: - Activity/exercise program recommendation - Conservative stepwise pain medicine strategy with multi-disciplinary approach - Recommend healthy lifestyle strategies and compensatory methods as needed documented as of this encounter Visit Diagnoses Not on filedocumented in this encounter Additional Health Concerns Infection Onset Date Last Indicated Resolved Time COVID: Suspected 01/02/2023 01/02/2023 01/02/2023 4:23 PM CDT documented as of this encounter Care Teams Airfield Services Officer Relationship Specialty Start Date End Date Alfredo Negron MD PCP - General Internal Medicine 10/28/21 01/19/24 Harjeet Cintron MD [address] [place] [address] PCP - General 01/20/24 Amando Cintron MD Surgeon Vascular Surgery 08/25/21 Angélica Boyd RN Registered Nurse Pulmonary Disease 02/09/22 11/08/24 Rosalva Prince RN [address] [facility] [address] [place] [address] SHOP Outpatient Loan Broker 01/03/23 01/15/23 Nisha Lepe, BARTOLOME [address] [place] [address] [address] [place] [address] Incinerator Attendant 01/21/23 02/16/23 documented as of this encounter
--- OUTSIDE RECORDS SUMMARY | 2025-07-16 13:14 | XMS_ITS | Encounter Summary ---
Author Organization [facility] Healthcare Address [address] [place] [address] Care Team Providers Care Line Dancer Name Role Phone Amando Cintron MD Unavailable Alfredo Negron MD Primary Care Provide r Angélica Boyd RN Unavailable Unavailable Harjeet Cintron MD Primary Care Prov ider Encounter Details Date Type Department Care Team (Late st Contact Info) Description 06/27/2023 Telephone [facility] Primary Care Medicine Clinic [address] [facility] [address] [place] [address] Alfredo Negron MD [address] [place] [address] Social History Tobacco Use Types Packs/Day Years Used Date Smoking Tobacco: Every Day Cigarettes 0.8 40 Started: 1982; Last attempted to quit: 2022 Smokeless Tobacco: Never Comments:refused counseling at this time Alcohol Use Standard Drinks/Week Comments Not Currently 0 (1 standard drink = 0.6 oz pur e alcohol) x32 years Social Connection and Isolation Panel Answer Date Recorded In a typical week, how many times do you talk on the phone with family, friends, or neighbors? More than three times a week 05/11/2023 How often do you get togethe r with friends or relatives? More than three times a week 05/11/2023 How often do you attend chur ch or protestant services? Never 05/11/2023 Do you belong to any clubs o r organizations such as hinduism groups, unions, fraternal or athletic groups, or school groups? No 05/11/2023 How often do you attend meet ings of the clubs or organizations you belong to? Never 05/11/2023 Are you , , di vorced, , never , or living with a partner? 05/11/2023 AUDIT-C Answer Date Recorded Q1: How often do you have a drink containing alcohol? Never 03/21/2023 Q2: How many drinks containi ng alcohol do you have on a typical day when you are drinking? Patient does not drink Q3: How often do you have si x or more drinks on one occasion? Never 03/21/2023 Overall Financial Resource Strain (CARDIA) Answe r Date Recorded How hard is it for you to pa y for the very basics like food, housing, medical care, and heating? Not hard at all 05/11/2023 PHQ-2 Answer Date Recorded PHQ-2 Total Score (If total score is 3 or more points, staff should administer the PHQ-9) 0 05/11/2023 Hunger Vital Sign Answer Date Recorded Within the past 12 months, y ou worried that your food would run out before you got the money to buy more. Never true 06/05/20 23 Within the past 12 months, t he food you bought just didn't last and you didn't have money to get more. Never true 06/05/2023 PRAPARE - Transportation Answer Date Re corded [...] place to sleep or slept in a halfway (including now)? No 05/11/2023 Personal Safety Answer Date Recorded Have you ever been in or are you currently in a harmful physical or emotional relationship or is someone making you feel afraid or unsafe? Denies 05/10/2023 Sex and Gender Information Value Date Recorded Sex Assigned at Not on file Legal Sex Male 1:17 AM SAMPLE PASTER Gender Identity Not on file Sexual Orientation Not on file documented as of this encounter Functional Status * Alcohol Withdrawal BP Hierarchy Answer Date of Assessment Author 58 06/28/2023 10:16 AM SAMPLE PASTER Isabela Thompson CMA documented as of this encounter Plan of [...] take, when to call CM or provider. [facility] Chronic Pain Care Plan Chronic Care Management No change(09/20 9:23 AM SAMPLE PASTER) No Marla Sheppard RN Note: Problem: Chronic Pain// ABD pain, legs Goals: 1. Minimize further functional decline 2. Maximize quality of life 3. Control pain Strategies: - Activity/exercise program recommendation - Conservative stepwise pain medicine strategy with multi-disciplinary approach - Recommend healthy lifestyle strategies and compensatory methods as needed documented as of this encounter Visit Diagnoses Not on filedocumented in this encounter Care Teams Line Dancer Relationship Specialty Start Date End Date Alfredo Negron MD PCP - General Internal Medicine 10/28/21 01/19/24 Harjeet Cintron MD [address] [place] [address] PCP - General 01/20/24 Amando Cintron MD Surgeon Vascular Surgery 08/25/21 Angélica Boyd, BARTOLOME Registered Nurse Pulmonary Disease 02/09/22 11/08/24 documented as of this encounter
--- OUTSIDE RECORDS SUMMARY | 2025-07-16 13:14 | XMS_ITS | Encounter Summary ---
Author Organization [facility] Healthcare Address [address] [place] [address] Care Team Providers Care Manager Program Name Role Phone Amando Cintron MD Unavailable Alfredo Negron MD Primary Care Provide r Angélica Boyd RN Unavailable Unavailable Harjeet Cintron MD Primary Care Prov ider Encounter Details Date Type Department Care Team (Late st Contact Info) Description 06/16/2023 Telephone [facility] Primary Care Medicine Clinic [address] [facility] [address] [place] [address] Alfredo Negron MD [address] [place] [address] Social History Tobacco Use Types [...] often do you attend chur ch or restoration services? Never 05/11/2023 Do you belong to any clubs o r organizations such as jewish groups, unions, fraternal or athletic groups, or [...] place to sleep or slept in a usp (including now)? No 05/11/2023 Personal Safety Answer Date Recorded Have you ever been in or are you currently in a harmful physical or emotional relationship or is someone making you feel afraid or unsafe? 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 [facility] Chronic Pain Care Plan Chronic Care Management No change(09/20 9:23 AM CHIEF PAYROLL CLERK) No Marla Sheppard, BARTOLOME Note: Problem: Chronic Pain// ABD pain, legs Goals: 1. Minimize further functional decline 2. Maximize quality of life 3. Control pain Strategies: - Activity/exercise program recommendation - Conservative stepwise pain medicine strategy with multi-disciplinary approach - Recommend healthy lifestyle strategies and compensatory methods as needed documented as of this encounter Visit Diagnoses Not on filedocumented in this encounter Care Teams Manager Program Relationship Specialty Start Date End Date Alfredo Negron MD PCP - General Internal Medicine 10/28/21 01/19/24 Harjeet Cintron MD [address] [place] [address] PCP - General 01/20/24 Amando Cintron MD Surgeon Vascular Surgery 08/25/21 Angélica Boyd, RN Registered Nurse Pulmonary Disease 02/09/22 11/08/24 documented as of this encounter
--- OUTSIDE RECORDS SUMMARY | 2025-07-16 13:14 | XMS_ITS | Encounter Summary ---
Author Organization [facility] Healthcare Address [address] [place] [address] Care Team Providers Care Rouge Miller Name Role Phone Amando Cintron MD Unavailable Alfredo Negron MD Primary Care Provide r Angélica Boyd RN Unavailable Unavailable Harjeet Cintron MD Primary Care Prov ider Encounter Details Date Type Department Care Team (Late st Contact Info) Description 08/04/2023 Telephone [facility] Primary Care Medicine Clinic [address] [facility] [address] [place] [address] Alfredo Negron MD [address] [place] [address] Social History Tobacco Use Types Packs/Day Years Used Date Smoking Tobacco: Former Cigarettes 0.8 40 1 983 - 2022 Smokeless Tobacco: Never Comments:refused counseling at [...] week 05/11/2023 How often do you attend [facility] or islam services? Never 05/11/2023 Do you belong to any clubs o r organizations such as samaritan groups, unions, fraternal or athletic groups, or [...] you got the money to buy more. Patient declined Within the past 12 months, t he food you bought just didn't last and you didn't have money to get more. Patient declined 02/2023 PRAPARE - Transportation Answer Date Re corded [...] place to sleep or slept in a detention (including now)? No 05/11/2023 Personal Safety Answer Date Recorded Have you ever been in or are you currently in a harmful physical or emotional relationship or is someone making you feel afraid or unsafe? Denies 05/10/2023 Sex and Gender Information Value Date Recorded Sex Assigned at Not on file Legal Sex Male 1:17 AM CURVE SAW OPERATOR Gender Identity Not on file Sexual Orientation [...] Care Management On track(2022 12:31 PM CDT) Nisha Cole, RN Note: Problem: Knowledge deficit related to [...] take, when to call CM or provider. [facility] Chronic Pain Care Plan Chronic Care Management No change(09/20 9:23 AM CURVE SAW OPERATOR) Marla Mcdaniel RN Note: Problem: Chronic Pain// ABD pain, legs Goals: 1. Minimize further functional decline 2. Maximize quality of life 3. Control pain Strategies: - Activity/exercise program recommendation - Conservative stepwise pain medicine strategy with multi-disciplinary approach - Recommend healthy lifestyle strategies and compensatory methods as needed documented as of this encounter Visit Diagnoses Not on filedocumented in this encounter Care Teams Rouge Miller Relationship Specialty Start Date End Date Alfredo Negron MD PCP - General Internal Medicine 10/28/21 01/19/24 Harjeet Cintron MD [address] [place] [address] PCP - General 01/20/24 Amando Cintron MD Surgeon Vascular Surgery 08/25/21 Angélica Boyd, RN Registered Nurse Pulmonary Disease 02/09/22 11/08/24 documented as of this encounter
--- OUTSIDE RECORDS SUMMARY | 2025-07-16 13:15 | XMS_ITS | Encounter Summary ---
Author Organization [facility] Healthcare Address [address] [place] [address] Care Team Providers Care Shot Core Drill Operator Helper Name Role Phone Amando Cintron MD Unavailable Alfredo Negron MD Primary Care Provide r Angélica Boyd RN Unavailable Unavailable Rosalva Prince RN Unavailable [phone] Nisha Lepe RN Unavailable Harjeet Cintron MD Primary Care Prov ider Encounter Details Date Type Department Care Team (Late st Contact Info) Description 01/14/[address] [id number] Gilson Moeller RN Social History Tobacco Use Types Packs/Day Years [...] you have a drink containing alcohol? Never 12/30/2022 Q2: How many drinks containi ng alcohol do you have on a typical day when you are drinking? Patient does not drink Q3: How often do you have si x or more drinks on one occasion? Never 12/30/2022 Hunger Vital Sign Answer Date Recorded Within the past 12 months, y ou worried that your food would run out before you got the money to buy more. Never true 09/09/19 23 Within the past 12 months, t he food you bought just didn't last and you didn't have money to get more. Never true 09/09/2022 Sex and Gender Information Value Date Recorded Sex Assigned at Not on file Legal Sex Male 1:17 AM VP INFORMATICS Gender Identity Not on file Sexual Orientation Not on file documented as of this encounter Functional Status * Difference in Last Two Yoan Scores Answer Date of Assessment Author 0 01/14/2023 9:00 AM DEANNAT Carey Romero, BARTOLOME * Question Answer Date of Assessment Author BP Location Right arm 01/14/2023 11:20 AM Tiffany Marquez RN BP Method Automatic 01/14/2023 11:20 AM Tiffany Marquez RN MAP (mmHg) 63 01/14/2023 3:10 AM DEANNAT Cady Melchor RN * Fidelia Fall Risk Question Answer Date of Assessment Author History of Falling 25 01/14/2023 8:00 AM Tiffany Frank RN Secondary Diagnosis 15 01/14/2023 8:00 AM Tiffany Rodriguez, delivery person Aids 15 01/14/2023 8:00 AM Tiffany Alejandra RN Intravenous Therapy/Heparin/Saline Lock 20 01/14/2023 8:00 AM Carey Frank RN Gait/Transferring 10 01/14/2023 8:00 AM Tiffany Frank, BARTOLOME Mental Status 0 01/14/2023 8:00 AM Tiffany Marquez RN Mistry Fall Risk Score (Score >= 45 places fall precaution order) 85 01/14/2023 8:00 AM Tiffany Frank RN Prior Fall Event (Autopopagustina javier from EMR) None found 01/14/2023 8:00 AM Tiffany Frank, BARTOLOME * Yoan Scale Question Answer Date of Assessment Author Sensory Perceptions 4 01/14/2023 9:00 AM Tiffany Rodriguez BARTOLOME Moisture 3 01/14/2023 9:00 AM Tiffany Goetz, BARTOLOME Activity 3 01/14/2023 9:00 AM Tiffany Goetz, BARTOLOME Mobility 3 01/14/2023 9:00 AM Tiffany Goetz, BARTOLOME Nutrition 3 01/14/2023 9:00 AM Tiffany Goetz, BARTOLOME Friction and Shear 3 01/14/2023 9:00 AM Tiffany Frank, BARTOLOME Yoan Scale Score 19 01/14/2023 9:00 AM Tiffany Frank, BARTOLOME * Fall Risk Interventions Question Answer Date of Assessment Author All Low Fall Interventions Applied Yes 01/14/2023 8:00 AM Tiffany Frank, BARTOLOME All Moderate Fall Interventions Applied Yes 01/14/2023 8:00 AM Tiffany Frank, BARTOLOME All High Fall Risk Interventions Applied Yes 01/14/2023 8:00 AM Tiffany Frank, BARTOLOME Additional Interventions Applied Bed/chair alarm;Video monitoring 01/14/2023 8:00 AM Tiffany Frank, BARTOLOME * B.M.A.T. - Bedside Mobility Assessment Tool for Nurses Question Answer Date of Assessment Author BMAT Level Level 3 - Yellow 01/14/2023 8:00 AM Tiffany Worrell, RN Level 3 Equipment Use assistive device such as cane/walker 01/14/2023 8:00 AM Tiffany Frank, BARTOLOME * Alcohol Withdrawal BP Hierarchy Answer Date of Assessment Author 61 01/17/2023 12:04 PM Kike Brunner PA * Pressure Injury Prevention Question Answer Date of Assessment Author Pressure Ulcer Prevention Interventions Keep skin clean and dry (Sensory Perception/Moisture ) 01/14/2023 9:00 AM Tiffany Frank, BARTOLOME * Integumentary Question Answer Date of Assessment Author Skin Color Appropriate for ethnicity 01/14/2023 9:00 AM Tiffany Frank, BARTOLOME Skin Condition/Temp Dry;Warm 01/14/2023 9 :00 AM Tiffany Frank, RN Skin Integrity Bruising 01/14/2023 11:20 AM Tiffany Frank RN Skin Turgor Non-tenting 01/14/2023 9:00 AM Tiffany Frank, BARTOLOME Integumentary Additional Assessments Yes-Yoan 01/14/2023 8:00 AM Tiffany Frank, BARTOLOME Integumentary (WDL) X 01/14/2023 1 1:20 AM Tiffany Frank, BARTOLOME Skin Location BUE 01/14/2023 11:20 AM Tiffany Frank, RN * Question Answer Date of Assessment Author BP Location Right arm 01/14/2023 11:20 AM Tiffany Marquez RN BP Method Automatic 01/14/2023 11:20 AM Tiffany Marquez RN * Question Answer Date of Assessment Author Affect Calm 01/14/2023 9:00 AM Tiffany Goetz RN Mood Content 01/14/2023 9:00 AM Tiffany Goetz RN * Question Answer Date of Assessment Author Percent Snack Eaten (%) 100 01/14/2023 11:00 AM Gilson Chapin RN Diet Supplement Name/Percent Consumed % 100 01/14/2023 11:00 AM Gilson Chapin RN * Percent Meal Eaten (%) Answer Date of Assessment Author 100 01/14/2023 12:03 PM Kendra Chapin RN * Question Answer Date of Assessment Author Bed In Lowest Position Yes 01/14/2023 11:20 A M Tiffany Frank, RN Bed Wheels Locked Yes 01/14/2023 11:20 AM Tiffany Frank, BARTOLOME * Fall Risk Interventions Question Answer Date of Assessment Author All Low Fall Interventions Applied Yes 01/14/2023 8:00 AM Tiffany Frank, BARTOLOME All Moderate Fall Interventions Applied Yes 01/14/2023 8:00 AM Tiffany Frank, BARTOLOME All High Fall Risk Interventions Applied Yes 01/14/2023 8:00 AM Tiffany Frank, BARTOLOME Additional Interventions Applied Bed/chair alarm;Video monitoring 01/14/2023 8:00 AM Tiffany Frank, BARTOLOME * Question Answer Date of Assessment Author Oral Care Denture care 01/14/2023 8:00 AM Tiffany Frank RN Hygiene Level of Assistance Moderate assist 01/14/2023 9:00 AM Tiffany Frank, BARTOLOME Toileting: Assistance with Perineal hygiene 01/14/2023 8:00 AM Tiffany Frank RN Reason not bathed/showered with chlorhexidine gluconate (CHG) Patient refused bath/shower with chlorhexidine gluconate (CHG) 01/14/2023 9:00 AM Tiffany Frank RN Toileting: Level of assistance Stand by 01/14/2023 8:00 AM Tiffany Frank RN Perineal Care Meaghan Care 01/14/2023 8:00 AM Tiffany Frank RN Linens Partial linen change (Comment) 01/14/2023 8:00 AM Tiffany Frank RN Bath Not bathed/showered 01/14/2023 9 :00 AM Tiffany Frank, BARTOLOME * Sitter Answer Date of Assessment Author Discontinued 01/14/2023 11:44 AM Nestor Rodas * Sitter Type Answer Date of Assessment Author Continuous Virtual Patient Observation 11:44 AM Nestor Rodas * Nutrition Question Answer Date of Assessment Author Feeding Level of Assistance Able to feed self 01/14/2023 11:20 AM Tiffany Frank RN Appetite Good 01/14/2023 11:20 AM Tiffany Marquez, BARTOLOME documented as of this encounter Mental Status * Question Answer Entry Date Author Level of Consciousness Alert;Awake 11:20 AM Tiffany Frank, BARTOLOME Orientation Oriented X4 (person, place, time, situation) 01/14/2023 11:20 AM Tiffany Frank, BARTOLOME * Question Answer Entry Date Author Neuro (WDL) X 01/14/2023 11:[address] [facility] Tiffany berkowitz RN documented in this encounter Plan of Treatment [...] (rather than stopping them without telling anyone). CCM Chronic Pain Care Plan Chronic Care Management No change(09/20 9:23 AM VP INFORMATICS) No Marla Sheppard RN Note: Problem: Chronic [...] on filedocumented in this encounter Care Teams Shot Core Drill Operator Helper Relationship Specialty Start Date End Date Alfredo Negron MD PCP - General Internal Medicine 10/28/21 01/19/24 Harjeet Cintron MD [address] [place] [address] PCP - General 01/20/24 Amando Cintron MD Surgeon Vascular Surgery 08/25/21 Angélica Boyd RN Registered Nurse Pulmonary Disease 02/09/22 11/08/24 Rosalva Prince, RN [address] [facility] [address] [place] [address] SHOP Outpatient Advertising Associate 01/03/23 01/15/23 Nisha Lepe, BARTOLOME [address] [place] [address] [address] [place] [address] Asset Coordinator 01/21/23 02/16/23 documented as of this encounter
--- OUTSIDE RECORDS SUMMARY | 2025-07-16 13:15 | XMS_ITS | Encounter Summary ---
Author Organization [facility] Healthcare Address [address] [place] [address] Care Team Providers Care Progressive Care Unit Registered Nurse Name Role Phone Amando Cintron MD Unavailable Alfredo Negron MD Primary Care Provide r Angélica Boyd RN Unavailable Unavailable Harjeet Cintron MD Primary Care Prov ider Encounter Details Date Type Department Care Team (Late st Contact Info) Description 04/04/2023 Telephone [facility] Primary Care Medicine Clinic [address] [facility] [address] [place] [address] Alfredo Negron MD [address] [place] [address] Social History Tobacco Use Types [...] neighbors? More than three times a week 01/23/2023 How often do you get togethe r with friends or relatives? More than three times a week 01/23/2023 How often do you attend chur ch or buddhist services? Never 01/23/2023 Do you belong to any clubs o r organizations such as faith groups, unions, fraternal or athletic groups, or school groups? No 01/23/2023 How often do you attend meet ings of the clubs or organizations you belong to? Never 01/23/2023 Are you , , di vorced, , never , or living with a partner? 01/23/2023 AUDIT-C Answer Date Recorded Q1: How often [...] care, and heating? Not hard at all 01/23/2023 Hunger Vital Sign Answer Date Recorded Within the past 12 months, y ou worried that your food would run out before you got the money to buy more. Never true 03/21/20 23 Within the past 12 months, t he food you bought just didn't last and you didn't have money to get more. Never true 03/21/2023 PRAPARE - Transportation Answer Date Re corded In the past 12 months, has l ack of transportation kept you from medical appointments or from getting medications? No 12/30 In the past 12 months, has l ack of transportation kept you from meetings, work, or from getting things needed for daily living? No 01/23/2023 Housing Stability Vital Sign Answer Dontae e Recorded In the last 12 months, was t here a time when you were not able to pay the mortgage or rent on time? No 01/23/2023 In the last 12 months, how many places have you lived? 1 01/23/2023 In the last 12 months, was t here a time when you did not have a steady place to sleep or slept in a custodial (including now)? No 01/23/2023 Sex and Gender Information Value Date Recorded Sex Assigned at Not on file Legal Sex Male 1:17 AM THREAD REELER Gender Identity Not on file Sexual Orientation [...] take, when to call CM or provider. [facility] Chronic Pain Care Plan Chronic Care Management No change(09/20 9:23 AM THREAD REELER) No Marla Sheppard RN Note: Problem: Chronic [...] on filedocumented in this encounter Care Teams Progressive Care Unit Registered Nurse Relationship Specialty Start Date End Date Alfredo Negron MD PCP - General Internal Medicine 10/28/21 01/19/24 Harjeet Cintron MD [address] [place] [address] PCP - General 01/20/24 Amando Cintron MD Surgeon Vascular Surgery 08/25/21 Angélica Boyd, BARTOLOME Registered Nurse Pulmonary Disease 02/09/22 11/08/24 documented as of this encounter
--- OUTSIDE RECORDS SUMMARY | 2025-07-16 13:15 | XMS_ITS | Encounter Summary ---
Author Organization [facility] Healthcare Address [address] [place] [address] Care Team Providers Care Computer Service Technician Name Role Phone Amando Cintron MD Unavailable Alfredo Negron MD Primary Care Provide r Angélica Boyd RN Unavailable Unavailable Harjeet Cintron MD Primary Care Prov ider Encounter Details Date Type Department Care Team (Late st Contact Info) Description 03/10/2023 Telephone [facility] Primary Care Medicine Clinic [address] [facility] [address] [place] [address] Alfredo Negron MD [address] [place] [address] Social History Tobacco Use Types [...] often do you attend chur ch or mosque services? Never 01/23/2023 Do you belong to [...] more drinks on one occasion? Never 12/30/2022 Overall Financial Resource Strain (CARDIA) Answe r [...] the money to buy more. Never true 01/26/20 23 Within the past 12 months, t he food you bought just didn't last and you didn't have money to get more. Never true 01/25/2023 PRAPARE - Transportation Answer Date Re corded [...] on file Legal Sex Male 1:17 AM MAINTENANCE REPRESENTATIVE Gender Identity Not on file Sexual [...] take, when to call CM or provider. [facility] Chronic Pain Care Plan Chronic Care Management No change(09/20 9:23 AM MAINTENANCE REPRESENTATIVE) No Marla Sheppard RN Note: Problem: [...] on filedocumented in this encounter Care Teams Computer Service Technician Relationship Specialty Start Date End Date Alfredo Negron MD PCP - General Internal Medicine 10/28/21 01/19/24 Harjeet Cintron MD [address] [place] [address] PCP - General 01/20/24 Amando Cintron MD Surgeon Vascular Surgery 08/25/21 Angélica Boyd, BARTOLOME Registered Nurse Pulmonary Disease 02/09/22 11/08/24 documented as of this encounter
--- OUTSIDE RECORDS SUMMARY | 2025-07-16 13:15 | XMS_ITS | Encounter Summary ---
Author Organization [facility] Address [address] [place] [address] Phone Care Team Providers Care Transportation Coordinator Name Role Phone Amando Cintron MD Unavailable Alfredo Negron MD Primary Care Provide r Angélica Boyd RN Unavailable Unavailable Rosalva Prince RN Unavailable [phone] Nisha Lepe RN Unavailable [phone] Harjeet Cintron MD Primary Care Prov ider Encounter Details Date Type Department Care Team (Latest Contact Info) Description 08/08/2022 Orders Only [facility] Scanning, Provider Social History Tobacco Use Types Packs/Day Years [...] on file Legal Sex Male 1:17 AM RELIEF SALESPERSON Gender Identity Not on file Sexual Orientation [...] (rather than stopping them without telling anyone). [facility] Chronic Pain Care Plan Chronic Care Management No change(09/20 9:23 AM RELIEF SALESPERSON) No Marla Sheppard RN Note: Problem: Chronic Pain// ABD pain, legs Goals: 1. Minimize further functional decline 2. Maximize quality of life 3. Control pain Strategies: - Activity/exercise program recommendation - Conservative stepwise pain medicine strategy with multi-disciplinary approach - Recommend healthy lifestyle strategies and compensatory methods as needed documented as of this encounter Procedures Procedure Name Priority Date/Time Associated Diagnosis Comments CARDIOLOGY DOCUMENT SCAN 08/08/2022 documented in this encounter Results * CARDIOLOGY DOCUMENT SCAN (08/08/2022) Anatomical Region Laterality Modality Other us Provider Scanning CV CARDIAC SERVICES PROCEDURES Final Result documented in this encounter Visit Diagnoses Not on filedocumented in this encounter Additional Health Concerns Infection Onset Date Last Indicated Resolved Time COVID: Suspected 01/02/2023 01/02/2023 01/02/2023 4:23 PM CDT documented as of this encounter Care Teams Transportation Coordinator Relationship Specialty Start Date End Date Alfredo Negron MD PCP - General Internal Medicine 10/28/21 01/19/24 Harjeet Cintron MD [address] [place] [address] PCP - General 01/20/24 Amando Cintron MD Surgeon Vascular Surgery 08/25/21 Angélica Boyd RN Registered Nurse Pulmonary Disease 02/09/22 11/08/24 Rosalva Prince RN [address] [facility] [address] [place] [address] SHOP Outpatient Consultant In Ergonomics And Safety 01/03/23 01/15/23 Nisha Lepe, BARTOLOME [address] [place] [address] [address] [place] [address] Payroll Services Analyst 01/21/23 02/16/23 documented as of this encounter
--- OUTSIDE RECORDS SUMMARY | 2025-07-16 13:15 | XMS_ITS | Encounter Summary ---
Author Organization [facility] Healthcare Address [address] [place] [address] Care Team Providers Care Blender Conveyor Operator Name Role Phone Amando Cintron MD Unavailable Alfredo Negron MD Primary Care Provide r Angélica Boyd RN Unavailable Unavailable Harjeet Cintron MD Primary Care Prov ider Encounter Details Date Type Department Care Team (Late st Contact Info) Description 06/06/2023 Telephone [facility] [address] [facility] [address] [place] [address] Alfredo Negron MD [address] [place] [address] Social History Tobacco Use Types [...] often do you attend chur ch or gnosticist services? Never 05/11/2023 Do you belong to any clubs o r organizations such as spiritism groups, unions, fraternal or athletic groups, or [...] place to sleep or slept in a senior living (including now)? No 05/11/2023 Personal Safety Answer Date Recorded Have you ever been in or are you currently in a harmful physical or emotional relationship or is someone making you feel afraid or unsafe? Denies 05/10/2023 Sex and Gender Information Value Date Recorded Sex Assigned at Not on file Legal Sex Male 1:17 AM CHIEF INNOVATION OFFICER Gender Identity Not on file Sexual Orientation [...] take, when to call CM or provider. [facility] Chronic Pain Care Plan Chronic Care Management No change(09/20 9:23 AM CHIEF INNOVATION OFFICER) Marla Mcdaniel RN Note: Problem: Chronic Pain// ABD pain, legs Goals: 1. Minimize further functional decline 2. Maximize quality of life 3. Control pain Strategies: - Activity/exercise program recommendation - Conservative stepwise pain medicine strategy with multi-disciplinary approach - Recommend healthy lifestyle strategies and compensatory methods as needed documented as of this encounter Visit Diagnoses Not on filedocumented in this encounter Care Teams Blender Conveyor Operator Relationship Specialty Start Date End Date Alfredo Negron MD PCP - General Internal Medicine 10/28/21 01/19/24 Harjeet Cintron MD [address] [place] [address] PCP - General 01/20/24 Amando Cintron MD Surgeon Vascular Surgery 08/25/21 Angélica Boyd, RN Registered Nurse Pulmonary Disease 02/09/22 11/08/24 documented as of this encounter
--- OUTSIDE RECORDS SUMMARY | 2025-07-16 13:15 | XMS_ITS | Encounter Summary ---
Author Organization [facility] Healthcare Address [address] [place] [address] Care Team Providers Care Geophysical Prospecting Surveyor Name Role Phone Amando Cintron MD Unavailable Alfredo Negron MD Primary Care Provide r Angélica Boyd RN Unavailable Unavailable Harjeet Cintron MD Primary Care Prov ider Encounter Details Date Type Department Care Team (Late st Contact Info) Description 03/24/[address] [facility] Primary Care Medicine Clinic [address] [facility] [address] [place] [address] Alfredo Negron MD [address] [place] [address] Social History Tobacco Use Types [...] often do you attend chur ch or alevism services? Never 01/23/2023 Do you belong to any clubs o r organizations such as protestant groups, unions, fraternal or athletic groups, or [...] place to sleep or slept in a intermediate (including now)? No 01/23/2023 Sex and Gender Information Value Date Recorded Sex Assigned at Not on file Legal Sex Male 1:17 AM CAGE MAKER Gender Identity Not on file Sexual Orientation Not on file documented as of this encounter Functional Status * Question Answer Date of Assessment Author MAP (mmHg) 94 03/24/2023 6:45 PM CDT Nadya Loyd, BARTOLOME * CAGE Alcohol Assessment Question Answer Date of Assessment Author Have you ever felt the need to Cut down on your drinking? 0 03/24/2023 12:41 PM CDT Sonya Castillo RN Have people ever Annoyed yo u by criticizing your drinking? 0 03/24/2023 12:41 PM CDT Sonya Valdovinos RN Have you ever felt bad or G uilty about your drinking? 0 03/24/2023 12:41 PM DEANNAT Sonya Valdovinos RN Have you ever had a drink fi rst thing in the morning to steady your nerves or get rid of a hangover? Eye senior maintenance technician? 0 03/24/2023 12:41 PM DEANNAT Alecia Valdovinos RN CAGE SCORE: 2 or Greater = Positive 0 03/24/2023 12:41 PM CDT Sonya Valdovinos RN * Mistry Fall Risk Question Answer Date of Assessment Author History of Falling 25 03/24/2023 12:41 PM Sonya Falcon RN Secondary Diagnosis 15 03/24/2023 12:41 PM C Sonya Kwong RN Ambulatory Aids 0 03/24/2023 12:41 PM Sonya Gentile RN Intravenous Therapy/Heparin/Saline Lock 20 03/24/2023 12:41 PM Sonya Delatorre RN Gait/Transferring 0 03/24/2023 12:41 PM Sonya Delatorre RN Mental Status 0 03/24/2023 12:41 PM DEANNAT Sonya Taylor RN Morse Fall Risk Score (Score >= 45 places fall precaution order) 60 03/24/2023 12:41 PM Sonya Delatorre RN Prior Fall Event (Autopopulated from EMR) None found 03/24/2023 12:41 PM Gen Delatorre RN * Fall Risk Interventions Question Answer Date of Assessment Author All Low Fall Interventions Applied Yes 03/24/2023 12:41 PM Sonya Delatorre RN All Moderate Fall Interventions Applied No 03/24/2023 12:41 PM Sonya Delatorre RN All Moderate Fall Risk Interventions EXCEPT: Fall risk sign with education;PT eval requested or obtained;OT eval requested or obtained 03/24/2023 12:41 PM Sonya Delatorre RN All High Fall Risk Interventions Applied No 03/24/2023 12:41 PM Sonya Delatorre RN Reason For Exception(s) not utlized in [facility] 03/24 12:41 PM Sonya Delatorre RN * Alcohol Withdrawal BP Hierarchy Answer Date of Assessment Author 56 03/24/2023 12:30 PM Sonya Delatorre RN * Question Answer Date of Assessment Author Percent Meal Eaten (%) 75 03/24/2023 5:25 PM Nadya Dye RN * Fall Risk Interventions Question Answer Date of Assessment Author All Low Fall Interventions Applied Yes 03/24/2023 12:41 PM Sonya Delatorre RN All Moderate Fall Interventions Applied No 03/24/2023 12:41 PM Sonya Delatorre RN All Moderate Fall Risk Interventions EXCEPT: Fall risk sign with education;PT eval requested or obtained;OT eval requested or obtained 03/24/2023 12:41 PM Sonya Delatorre RN All High Fall Risk Interventions Applied No 03/24/2023 12:41 PM Sonya Delatorre RN Reason For Exception(s) not utlized in [facility] 03/24 12:41 PM Sonya Delatorre RN * ADL Screening Question Answer Date of Assessment Author Patient's Vision Adequate to Safely Complete Daily Activities Yes 03/24/2023 12:41 PM Sonya Delatorre RN Patient's Judgement Adequate to Safely Complete Daily Activities Yes 03/24/2023 12:41 PM Sonya Delatorre RN Patient's Memory Adequate to Safely Complete Daily Activities Yes 03/24/2023 12:41 PM Sonya Delatorre , BARTOLOME Patient Able to Express Needs/Desires Yes 03/24/2023 12:41 PM Sonya Delatorre , RN Dressing Independent 03/24/2023 12:41 PM CDT Sonya Hall, RN Grooming Independent 03/24/2023 12:41 PM CDT Sonya Hall, RN Feeding Independent 03/24/2023 12:41 PM CDT Sonya Hall, RN Bathing Independent 03/24/2023 12:41 PM DEANNAT Sonya Hall, RN Toileting Independent 03/24/2023 12:41 PM CDT Sonya Hall, RN In/Out Bed Independent 03/24/2023 12:41 PM CDT Sonya Hall, RN Walks in Home Independent 03/24/2023 12:41 PM CDT Sonya Taylor, RN Weakness of Legs Both 03/24/2023 12:41 PM Sonya Delatorre, RN Weakness of Arms/Hands Both 03/24/2023 12:41 P M Sonya Delatorre, RN Hearing - Right Ear Functional 03/24/2023 12:41 PM C Sonya Kwong, RN Hearing - Left Ear Functional 03/24/2023 12:41 PM Sonya Falcon RN Dominant hand? Right 03/24/2023 12:41 PM Sonya Harrell RN Decline in ADLs in last 2 weeks? No 03/24/2023 12:41 PM Sonya Delatorre , RN * Therapy Consults Question Answer Date of Assessment Author PT Evaluation Needed 2 03/24/2023 12:41 PM Sonya Delatorre RN OT Evaluation Needed 2 03/24/2023 12:41 PM Sonya Delatorre, RN EXTRACT OPERATOR Evaluation Needed 2 03/24/2023 12:41 PM Sonya Delatorre RN * Assistive Devices Question Answer Date of Assessment Author Assistive Devices/DME Cane 03/24/2023 12:41 PM Sonya Delatorre RN * Speech/Swallow Screening Question Answer Date of Assessment Author Currently, does patient have difficulty swallowing; coughing/choking while swallowing, or feels like food is sticking No 03/24/2023 12:41 PM Sonya Delatorre RN In the past two weeks has the patient had changes in speaking or ability to comprehend conversation No 03/24/2023 12:41 PM Sonya Delatorre RN Currently, does patient require thickened liquids or dysphagia diet No 03/24/2023 12:41 PM Sonya Delatorre RN Patient is in need of EXTRACT OPERATOR Order: No EXTRACT OPERATOR order needed from this assessment 03/24/2023 12:41 PM Sonya Delatorre RN documented as of this encounter Plan of Treatment Scheduled Procedures Name Priority Associated Diagnoses Date/Ti de COLONOSCOPY Iron deficiency anemia, unspecified iron deficiency [...] take, when to call CM or provider. [facility] Chronic Pain Care Plan Chronic Care Management No change(09/20 9:23 AM CAGE MAKER) No Marla Sheppard RN Note: Problem: Chronic [...] on filedocumented in this encounter Care Teams Geophysical Prospecting Surveyor Relationship Specialty Start Date End Date Alfredo Negron MD PCP - General Internal Medicine 10/28/21 01/19/24 Harjeet Cintron MD [address] [place] [address] PCP - General 01/20/24 Amando Cintron MD Surgeon Vascular Surgery 08/25/21 Angélica Boyd, BARTOLOME Registered Nurse Pulmonary Disease 02/09/22 11/08/24 documented as of this encounter
--- OUTSIDE RECORDS SUMMARY | 2025-07-16 13:15 | XMS_ITS | Encounter Summary ---
Author Organization [facility] Healthcare Address [address] [place] [address] Care Team Providers Care Supervisor Coating Name Role Phone Amando Cintron MD Unavailable Alfredo Negron MD Primary Care Provide r Angélica Boyd RN Unavailable Unavailable Rosalva Prince RN Unavailable Nisha Lepe RN Unavailable Harjeet Cintron MD Primary Care Prov ider Encounter Details Date Type Department Care Team (Late st Contact Info) Description 06/16/2022 Telephone [facility] Primary Care Medicine Clinic [address] [facility] [address] [place] [address] Alfredo Negron MD [address] [facility] [address] [place] [address] Social History Tobacco Use Types Packs/Day Years [...] on file Legal Sex Male 1:17 AM TEST MAN Gender Identity Not on file Sexual Orientation [...] (rather than stopping them without telling anyone). [facility] Chronic Pain Care Plan Chronic Care Management No change(09/20 9:23 AM TEST MAN) Marla Mcdaniel RN Note: Problem: Chronic Pain// [...] documented as of this encounter Care Teams Supervisor Coating Relationship Specialty Start Date End Date Alfredo Negron MD PCP - General Internal Medicine 10/28/21 01/19/24 Harjeet Cintron MD [address] [place] [address] PCP - General 01/20/24 Amando Cintron MD Surgeon Vascular Surgery 08/25/21 Angélica Boyd RN Registered Nurse Pulmonary Disease 02/09/22 11/08/24 Rosalva Prince RN [address] [facility] [address] [place] [address] SHOP Outpatient Campground Cleaning Attendant 01/03/23 01/15/23 Nisha Lepe, BARTOLOME [address] [place] [address] [address] [place] [address] Talent Acquisition Project Manager 01/21/23 02/16/23 documented as of this encounter
--- OUTSIDE RECORDS SUMMARY | 2025-07-16 13:15 | XMS_ITS | Encounter Summary ---
Author Organization [facility] Address [address] [place] [address] Phone Care Team Providers Care Micromatic Hone Operator Name Role Phone Sorin Santos MD Primary Care Provider Alfredo Negron MD Primary Care Provide r Amando Cintron MD Unavailable [phone] Sorin Santos MD Primary Care Provider Alfredo Negron MD Primary Care Provide r Angélica Boyd RN Unavailable Unavailable Rosalva Prince RN Unavailable [phone] Nisha Lepe RN Unavailable [phone] Harjeet Cintron MD Primary Care Prov ider Encounter Details Date Type Department Care Team (Latest Contact Info) Description 04/21/2020 Orders Only [facility] Scanning, Provider Social History Tobacco Use Types Packs/Day Years Used Date Smoking Tobacco: Every Day Cigarettes 1 40 Started: 12/1976; Last attempted to quit: 12/2016 Smokeless Tobacco: Never Comments:refused counseling at this time Alcohol Use Standard Drinks/Week Comments Not Currently 0 (1 standard drink = 0.6 oz pur e alcohol) x32 years Sex and Gender Information Value Date Recorded Sex Assigned at Not on file Legal Sex Male 1:17 AM PROMOTIONS SPECIALIST Gender Identity Not on file Sexual Orientation [...] (rather than stopping them without telling anyone). [facility] Chronic Pain Care Plan Chronic Care Management No change(09/20 9:23 AM PROMOTIONS SPECIALIST) No Marla Sheppard RN Note: Problem: Chronic Pain// ABD pain, legs Goals: 1. Minimize further functional decline 2. Maximize quality of life 3. Control pain Strategies: - Activity/exercise program recommendation - Conservative stepwise pain medicine strategy with multi-disciplinary approach - Recommend healthy lifestyle strategies and compensatory methods as needed documented as of this encounter Procedures Procedure Name Priority Date/Time Associated Diagnosis Comments SCAN - LABS 04/21/2020 documented in this encounter Results * SCAN - LABS (04/21/2020) us Provider Scanning Final Result documented in this encounter Visit Diagnoses Not on filedocumented in this encounter Additional Health Concerns Infection Onset 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, 2011 10/25/2010 10/25/201002/28 5:00 AM CDT COVID: Suspected 10/26/2021 10/26/2021 10/26/2021 4:46 PM CDT COVID: Suspected 01/02/2023 01/02/2023 01/02/2023 4:23 PM CDT documented as of this encounter Care Teams Micromatic Hone Operator Relationship Specialty Start Date End Date Sorin Santos MD [address] [address] PCP - General Internal Medicine 01/22/19 01/15/21 Alfredo Negron MD [address] [address] PCP - General 01/16/21 10/26/21 Sorin Santos MD [address] [address] PCP - General 10/27/21 10/27/21 Alfredo Negron MD [address] [address] PCP - General Internal Medicine 10/28/21 01/19/24 Harjeet Cintron MD 1 [place] [address] PCP - General 01/20/24 Amando Cintron MD [address] [facility] [address] [place] [address] Surgeon Vascular Surgery 08/25/21 Angélica Boyd RN Registered Nurse Pulmonary Disease 02/09/22 11/08/24 Rosalva Prince, BARTOLOME [address] [facility] [address] [place] [address] SHOP Outpatient Process Specialist 01/03/23 01/15/23 Nisha Lepe RN [address] [place] [address] [address] [place] [address] Nurse Informaticist 01/21/23 02/16/23 documented as of this encounter
--- OUTSIDE RECORDS SUMMARY | 2025-07-16 13:15 | XMS_ITS | Encounter Summary ---
Author Organization [facility] Address [address] [place] [address] Phone Care Team Providers Care Drilling Superintendent Name Role Phone Amando Cintron MD Unavailable [phone] Alfredo Negron MD Primary Care Provide r Angélica Boyd RN Unavailable Unavailable Rosalva Prince RN Unavailable [phone] Nisha Lepe RN Unavailable [phone] Harjeet Cintron MD Primary Care Prov ider Encounter Details Date Type Department Care Team (Latest Contact Info) Description 08/06/2022 Orders Only [facility] Scanning, Provider [...] on file Legal Sex Male 1:17 AM STATE HISTORICAL SOCIETY DIRECTOR Gender Identity Not on file Sexual Orientation [...] (rather than stopping them without telling anyone). [facility] Chronic Pain Care Plan Chronic Care Management No change(09/20 9:23 AM STATE HISTORICAL SOCIETY DIRECTOR) No Marla Sheppard RN Note: Problem: Chronic [...] Priority Date/Time Associated Diagnosis Comments SCAN - RADIOLOGY/IMAGING 08/06/2022 documented in this encounter Results * SCAN - RADIOLOGY/IMAGING (08/06/2022) Anatomical Region Laterality Modality Other us Provider Scanning Final Result documented in this encounter Visit Diagnoses Not on filedocumented in this encounter Additional Health Concerns Infection Onset Date Last Indicated Resolved Time COVID: Suspected 01/02/2023 01/02/2023 01/02/2023 4:23 PM CDT documented as of this encounter Care Teams Drilling Superintendent Relationship Specialty Start Date End Date Alfredo Negron MD PCP - General Internal Medicine 10/28/21 01/19/24 Harjeet Cintron MD [address] [place] [address] PCP - General 01/20/24 Amando Cintron MD Surgeon Vascular Surgery 08/25/21 Angélica Boyd RN Registered Nurse Pulmonary Disease 02/09/22 11/08/24 Rosalva Prince, BARTOLOME [address] [facility] [address] [place] [address] SHOP Outpatient Optics Engineer 01/03/23 01/15/23 Nisha Lepe, BARTOLOME [address] [place] [address] [address] [facility] [address] [place] [address] Freezer Assistant 01/21/23 02/16/23 documented as of this encounter
--- OUTSIDE RECORDS SUMMARY | 2025-07-16 13:15 | XMS_ITS | Encounter Summary ---
Author Organization [facility] Healthcare Address [address] [place] [address] Care Team Providers Care Rigger Helper Name Role Phone Amando Cintron MD Unavailable Alfredo Negron MD Primary Care Provide r Angélica Boyd RN Unavailable Unavailable Harjeet Cintron MD Primary Care Prov ider Encounter Details Date Type Department Care Team (Late st Contact Info) Description 03/28/2023 Telephone [facility] Primary Care Medicine Clinic [address] [place] [address] Alfredo Negron MD [address] [place] [address] Social History Tobacco Use Types [...] often do you attend chur ch or church services? Never 01/23/2023 Do you belong to [...] place to sleep or slept in a mcc (including now)? No 01/23/2023 Sex and Gender Information Value Date Recorded Sex Assigned at Not on file Legal Sex Male 1:17 AM BOX ATTACHER Gender Identity Not on file Sexual Orientation [...] when to call CM or provider. [facility] Chronic Pain Care Plan Chronic Care Management No change(09/20 9:23 AM BOX ATTACHER) No Marla Sheppard RN Note: Problem: Chronic [...] on filedocumented in this encounter Care Teams Rigger Helper Relationship Specialty Start Date End Date Alfredo Negron MD PCP - General Internal Medicine 10/28/21 01/19/24 Harjeet Cintron MD [address] [place] [address] PCP - General 01/20/24 Amando Cintron MD Surgeon Vascular Surgery 08/25/21 Angélica Boyd, BARTOLOME Registered Nurse Pulmonary Disease 02/09/22 11/08/24 documented as of this encounter
--- OUTSIDE RECORDS SUMMARY | 2025-07-16 13:15 | XMS_ITS | Encounter Summary ---
Author Organization [facility] Healthcare Address [address] [place] [address] Care Team Providers Care Meals On Wheels Driver Name Role Phone Amando Cintron MD Unavailable Alfredo Negron MD Primary Care Provide r Angélica Boyd RN Unavailable Unavailable Harjeet Cintron MD Primary Care Prov ider Encounter Details Date Type Department Care Team (Late st Contact Info) Description 03/30/2023 Telephone [facility] Primary Care Medicine Clinic [address] [facility] [address] [place] [address] Alfredo Negron MD [address] [place] [address] Social History Tobacco Use Types [...] any clubs o r organizations such as mosque groups, unions, fraternal or athletic groups, or [...] on file Legal Sex Male 1:17 AM BROADCAST CORRESPONDENT Gender Identity Not on file Sexual Orientation [...] take, when to call CM or provider. [facility] Chronic Pain Care Plan Chronic Care Management No change(09/20 9:23 AM BROADCAST CORRESPONDENT) No Marla Sheppard RN Note: Problem: Chronic [...] on filedocumented in this encounter Care Teams Meals On Wheels Driver Relationship Specialty Start Date End Date Alfredo Negron MD PCP - General Internal Medicine 10/28/21 01/19/24 Harjeet Cintron MD [address] [place] [address] PCP - General 01/20/24 Amando Cintron MD Surgeon Vascular Surgery 08/25/21 Angélica Boyd, BARTOLOME Registered Nurse Pulmonary Disease 02/09/22 11/08/24 documented as of this encounter
--- OUTSIDE RECORDS SUMMARY | 2025-07-16 13:15 | XMS_ITS | Encounter Summary ---
Author Organization [facility] Healthcare Address [address] [place] [address] Care Team Providers Care Wire Coater Name Role Phone Amando Cintron MD Unavailable Alfredo Negron MD Primary Care Provide r Angélica Boyd RN Unavailable Unavailable Harjeet Cintron MD Primary Care Prov ider Encounter Details Date Type Department Care Team (Late st Contact Info) Description 03/15/2023 Telephone [facility] Primary Care Medicine Clinic [address] [facility] [address] [place] [address] Alfredo Negron MD [address] [place] [address] Social History Tobacco Use Types [...] often do you attend chur ch or roman catholic services? Never 01/23/2023 Do you belong to any clubs o r organizations such as rastafarian groups, unions, fraternal or athletic groups, or [...] to sleep or slept in a senior care (including now)? No 01/23/2023 Sex and Gender Information Value Date Recorded Sex Assigned at Not on file Legal Sex Male 1:17 AM DIRECTOR BANKING Gender Identity Not on file Sexual Orientation [...] take, when to call CM or provider. [facility] Chronic Pain Care Plan Chronic Care Management No change(09/20 9:23 AM DIRECTOR BANKING) No Marla Sheppard RN Note: Problem: Chronic [...] on filedocumented in this encounter Care Teams Wire Coater Relationship Specialty Start Date End Date Alfredo Negron MD PCP - General Internal Medicine 10/28/21 01/19/24 Harjeet Cintron MD [address] [place] [address] PCP - General 01/20/24 Amando Cintron MD Surgeon Vascular Surgery 08/25/21 Angélica Boyd, BARTOLOME Registered Nurse Pulmonary Disease 02/09/22 11/08/24 documented as of this encounter
--- OUTSIDE RECORDS SUMMARY | 2025-07-16 13:15 | XMS_ITS | Encounter Summary ---
Author Organization [facility] Healthcare Address [address] [place] [address] Care Team Providers Care Apple Checker Name Role Phone Amando Cintron MD Unavailable Alfredo Negron MD Primary Care Provide r Angélica Boyd RN Unavailable Unavailable Harjeet Cintron MD Primary Care Prov ider Encounter Details Date Type Department Care Team (Late st Contact Info) Description 06/07/2023 Telephone [facility] Primary Care Medicine Clinic [address] [facility] [address] [place] [address] Alfredo Negron MD [address] [place] [address] Social History Tobacco Use Types [...] often do you attend chur ch or tenriism services? Never 05/11/2023 Do you belong to any clubs o r organizations such as amish groups, unions, fraternal or athletic groups, or [...] in a fdc (including now)? No 05/11/2023 Personal Safety Answer Date Recorded Have you ever been in or are you currently in a harmful physical or emotional relationship or is someone making you feel afraid or unsafe? Denies 05/10/2023 Sex and Gender Information Value Date Recorded Sex Assigned at Not on file Legal Sex Male 1:17 AM BED MAKER Gender Identity Not on file Sexual [...] take, when to call CM or provider. [facility] Chronic Pain Care Plan Chronic Care Management No change(09/20 9:23 AM BED MAKER) Marla Mcdaniel RN Note: Problem: Chronic Pain// ABD pain, legs Goals: 1. Minimize further functional decline 2. Maximize quality of life 3. Control pain Strategies: - Activity/exercise program recommendation - Conservative stepwise pain medicine strategy with multi-disciplinary approach - Recommend healthy lifestyle strategies and compensatory methods as needed documented as of this encounter Visit Diagnoses Not on filedocumented in this encounter Care Teams Apple Checker Relationship Specialty Start Date End Date Alfredo Negron MD PCP - General Internal Medicine 10/28/21 01/19/24 Harjeet Cintron MD [address] [place] [address] PCP - General 01/20/24 Amando Cintron MD Surgeon Vascular Surgery 08/25/21 Angélica Boyd, RN Registered Nurse Pulmonary Disease 02/09/22 11/08/24 documented as of this encounter
--- OUTSIDE RECORDS SUMMARY | 2025-07-16 13:15 | XMS_ITS | Encounter Summary ---
Author Organization [facility] Healthcare Address [address] [place] [address] Care Team Providers Care Raw Material Planner Name Role Phone Amando Cintron MD Unavailable Alfredo Negron MD Primary Care Provide r Angélica Boyd RN Unavailable Unavailable Harjeet Cintron MD Primary Care Prov ider Encounter Details Date Type Department Care Team (Late st Contact Info) Description 02/27/[address] [facility] Primary Care Medicine Clinic [address] [facility] [address] [place] [address] Alfredo Negron MD [address] [place] [address] Social History Tobacco Use Types [...] often do you attend chur ch or gnosticism services? Never 01/23/2023 Do you belong to any clubs o r organizations such as religious groups, unions, fraternal or athletic groups, or [...] slept in a usp (including now)? No 01/23/2023 Sex and Gender Information Value Date Recorded Sex Assigned at Not on file Legal Sex Male 1:17 AM INSURANCE CLAIMS ADJUSTER Gender Identity Not on file Sexual Orientation Not on file documented as of this encounter Functional Status * BP Location Answer Date of Assessment Author Right arm 03/02/2023 8:37 AM CDT Carey Hartley CMA * BP Location Answer Date of Assessment Author Right arm 03/02/2023 8:37 AM CDT Carey Hartley CMA documented as of this encounter Plan [...] take, when to call CM or provider. [facility] Chronic Pain Care Plan Chronic Care Management No change(09/20 9:23 AM INSURANCE CLAIMS ADJUSTER) Marla Mcdaniel RN Note: Problem: Chronic Pain// ABD pain, legs Goals: 1. Minimize further functional decline 2. Maximize quality of life 3. Control pain Strategies: - Activity/exercise program recommendation - Conservative stepwise pain medicine strategy with multi-disciplinary approach - Recommend healthy lifestyle strategies and compensatory methods as needed documented as of this encounter Visit Diagnoses Not on filedocumented in this encounter Care Teams Raw Material Planner Relationship Specialty Start Date End Date Alfredo Negron MD PCP - General Internal Medicine 10/28/21 01/19/24 Harjeet Cintron MD 1 [place] [address] PCP - General 01/20/24 Amando Cintron MD Surgeon Vascular Surgery 08/25/21 Angélica Boyd, RN Registered Nurse Pulmonary Disease 02/09/22 11/08/24 documented as of this encounter
--- OUTSIDE RECORDS SUMMARY | 2025-07-16 13:15 | XMS_ITS | Encounter Summary ---
Author Organization [facility] Healthcare Address [address] [place] [address] Care Team Providers Care Cutting Inspector Name Role Phone Amando Cintron MD Unavailable Alfredo Negron MD Primary Care Provide r Angélica Boyd RN Unavailable Unavailable Rosalva Prince RN Unavailable [phone] Nisha Lepe RN Unavailable [phone] Harjeet Cintron MD Primary Care Prov ider Encounter Details Date Type Department Care Team (Late st Contact Info) Description 05/03/2022 Telephone [facility] Primary Care Medicine Clinic [address] 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 [facility] Chronic Pain Care Plan Chronic Care Management No change(09/20 9:23 AM BREWING DIRECTOR) Marla Mcdaniel RN Note: Problem: Chronic Pain// [...] documented as of this encounter Care Teams Cutting Inspector Relationship Specialty Start Date End Date Alfredo Negron MD PCP - General Internal Medicine 10/28/21 01/19/24 Harjeet Cintron MD 1 [place] [address] PCP - General 01/20/24 Amando Cintron MD Surgeon Vascular Surgery 08/25/21 Angélica Boyd RN Registered Nurse Pulmonary Disease 02/09/22 11/08/24 Rosalva Prince RN [address] [facility] [address] [place] [address] SHOP Outpatient Filament Coil Winder 01/03/23 01/15/23 Nisha Lepe, BARTOLOME [address] [place] [address] [address] [place] [address] Reworker 01/21/23 02/16/23 documented as of this encounter
--- OUTSIDE RECORDS SUMMARY | 2025-07-16 13:15 | XMS_ITS | Encounter Summary ---
Author Organization [facility] Healthcare Address [address] [place] [address] Care Team Providers Care Avionics Manager Name Role Phone Amando Cintron MD Unavailable [phone] Alfredo Negron MD Primary Care Provide r Angélica Boyd RN Unavailable Unavailable Rosalva Prince RN Unavailable [phone] Nisha Lepe RN Unavailable [phone] Harjeet Cintron MD Primary Care Prov ider Encounter Details Date Type Department Care Team (Late st Contact Info) Description 12/21/2021 Telephone [facility] Primary Care Medicine Clinic [address] [facility] [address] [place] [address] Alfredo Negron MD [address] [facility] [address] [place] [address] Social History Tobacco Use Types Packs/Day Years Used Date Smoking Tobacco: Every Day Cigarettes 1 40 Smokeless Tobacco: Never Comments:refused counseling at this time Alcohol Use Standard Drinks/Week Comments Not Currently 0 (1 standard drink = 0.6 oz pur e alcohol) x32 years AUDIT-C Answer Date Recorded Q1: How often do you have a drink containing alc ohol? Never 08/24/2021 Average Number of Drinks Not on file 022 Q3: How often do you have si x or more drinks on one occasion? 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 Gender Identity Not on file Sexual Orientation [...] Chronic Care Management No change(09/20 9:23 AM FLIGHT TEST MECHANIC) No Marla Sheppard RN Note: Problem: Chronic [...] documented as of this encounter Care Teams Avionics Manager Relationship Specialty Start Date End Date Alfredo Negron MD PCP - General Internal Medicine 10/28/21 01/19/24 Harjeet Cintron MD 1 [place] [address] PCP - General 01/20/24 Amando Cintron MD Surgeon Vascular Surgery 08/25/21 Angélica Boyd RN Registered Nurse Pulmonary Disease 02/09/22 11/08/24 Rosalva Prince RN [address] [facility] [address] [place] [address] SHOP Outpatient Client Leader 01/03/23 01/15/23 Nisha Lepe, BARTOLOME [address] [place] [address] [address] [place], [place] [id number] Manager Trade 01/21/23 02/16/23 documented as of this encounter
--- OUTSIDE RECORDS SUMMARY | 2025-07-16 13:15 | XMS_ITS | Encounter Summary ---
Author Organization [facility] Healthcare Address [address] [place] [address] Care Team Providers Care Restaurant Hourly Team Member Name Role Phone Amando Cintron MD Unavailable Alfredo eNgron MD Primary Care Provide r Angélica Boyd RN Unavailable Unavailable Rosalva Prince RN Unavailable [phone] Nisha Lepe RN Unavailable Harjeet Cintron MD Primary Care Prov ider Encounter Details Date Type Department Care Team (Late st Contact Info) Description 08/16/2022 Telephone [facility] Primary Care Medicine Clinic [address] [facility] [address] [place] [address] Alfredo Negron MD [address] [facility] [address] [place] [address] Social History Tobacco Use Types Packs/Day Years [...] you are drinking? Patient does not drink 2 Q3: How often do you have si x or more drinks on one occasion? 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 Gender Identity Not on file Sexual Orientation Not on file documented as of this encounter Functional Status * Alcohol Withdrawal BP Hierarchy Answer Date of Assessment Author Ibanez 08/19/2022 2:21 PM COMMERCIAL DRIVER'S LICENSE DRIVER Brandon Sarabia MA documented as of this encounter Plan of [...] Chronic Care Management No change(09/20 9:23 AM COMMERCIAL DRIVER'S LICENSE DRIVER) Marla Mcdaniel, RN Note: Problem: Chronic Pain// ABD pain, [...] documented as of this encounter Care Teams Restaurant Hourly Team Member Relationship Specialty Start Date End Date Alfredo Negron MD PCP - General Internal Medicine 10/28/21 01/19/24 Harjeet Cintron MD 1 [place] [address] PCP - General 01/20/24 Amando Cintron MD Surgeon Vascular Surgery 08/25/21 Angélica Boyd RN Registered Nurse Pulmonary Disease 02/09/22 11/08/24 Rosalva Prince RN [address] [facility] [address] [place] [address] SHOP Outpatient Privacy Compliance Manager 01/03/23 01/15/23 Nisha Lepe RN [address] [facility] [address] [place] [address] Home Organizer 01/21/23 02/16/23 documented as of this encounter
--- OUTSIDE RECORDS SUMMARY | 2025-07-16 13:15 | XMS_ITS | Encounter Summary ---
Author Organization [facility] Address [address] [place] [address] Phone Care Team Providers Care Coordinator Of Online Programs Name Role Phone Sorin Santos MD Primary Care Provider Alfredo Negron MD Primary Care Provide r Amando Cintron MD Unavailable [phone] Sorin Santos MD Primary Care Provider Alfredo Negron MD Primary Care Provide r Angélica Boyd RN Unavailable Unavailable Rosalva Prince RN Unavailable [phone] Nisha Lepe RN Unavailable [phone] Harjeet Cintron MD Primary Care Prov ider Encounter Details Date Type Department Care Team (Latest Contact Info) Description 04/21/2020 Orders Only [facility] Scanning, Provider Social History Tobacco Use Types [...] on file 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, 2011 10/25/2010 10/25/201002/28 5:00 AM CDT COVID: Suspected 10/26/2021 10/26/2021 10/26/2021 4:46 PM CDT COVID: Suspected 01/02/2023 01/02/2023 01/02/2023 4:23 PM CDT documented as of this encounter Care Teams Coordinator Of Online Programs Relationship Specialty Start Date End Date Sorin Santos MD [address] [address] PCP - General Internal Medicine 01/22/19 01/15/21 Alfredo Negron MD [address] [address] PCP - General 01/16/21 10/26/21 Sorin Santos MD [address] [address] PCP - General 10/27/21 10/27/21 Alfredo Negron MD [address] [address] PCP - General Internal Medicine 10/28/21 01/19/24 Harjeet Cintron MD 1 [place] [address] PCP - General 01/20/24 Amando Cintron MD 1 [facility] [address] [place] [address] Surgeon Vascular Surgery 08/25/21 Angélica Boyd RN Registered Nurse Pulmonary Disease 02/09/22 11/08/24 Rosalva Prince, BARTOLOME [address] [facility] [address] [place] [address] SHOP Outpatient Domestic Helper 01/03/23 01/15/23 Nisha Lepe RN [address] [place] [address] [address] [place] [address] Whip Sawyer 01/21/23 02/16/23 documented as of this encounter
--- OUTSIDE RECORDS SUMMARY | 2025-07-16 13:15 | XMS_ITS | Encounter Summary ---
Author Organization [facility] Healthcare Address [address] [place] [address] Care Team Providers Care Hip Hop Performers Name Role Phone Amando Cintron MD Unavailable Alfredo Negron MD Primary Care Provide r Angélica Boyd RN Unavailable Unavailable Harjeet Cintron MD Primary Care Prov ider Encounter Details Date Type Department Care Team (Late st Contact Info) Description 06/03/2023 Telephone [facility] Primary Care Medicine Clinic [address] [facility] [address] [place] [address] Alfredo Negron MD [address] [place] [address] Social History Tobacco Use Types [...] often do you attend chur ch or episcopal services? Never 05/11/2023 Do you belong to any clubs o r organizations such as restorationist groups, unions, fraternal or athletic groups, or [...] place to sleep or slept in a mcfp (including now)? No 05/11/2023 Personal Safety Answer Date Recorded Have you ever been in or are you currently in a harmful physical or emotional relationship or is someone making you feel afraid or unsafe? Denies 05/10/2023 Sex and Gender Information Value Date Recorded Sex Assigned at Not on file Legal Sex Male 1:17 AM SHIPPING PACKER Gender Identity Not on file Sexual Orientation Not on file documented as of this encounter Functional Status * BP Location Answer Date of Assessment Author Right arm 06/05/2023 8:29 AM SHIPPING PACKER Alicia Good MA * Alcohol Withdrawal BP Hierarchy Answer Date of Assessment Author 39 06/05/2023 8:29 AM SHIPPING PACKER Alicia Good MA * BP Location Answer Date of Assessment Author Right arm 06/05/2023 8:29 AM SHIPPING PACKER Alicia Good MA documented as of this encounter Plan [...] take, when to call CM or provider. [facility] Chronic Pain Care Plan Chronic Care Management No change(09/20 9:23 AM SHIPPING PACKER) No Marla Sheppard RN Note: Problem: Chronic [...] on filedocumented in this encounter Care Teams Hip Hop Performers Relationship Specialty Start Date End Date Alfredo Negron MD PCP - General Internal Medicine 10/28/21 01/19/24 Harjeet Cintron MD 1 [place] [address] PCP - General 01/20/24 Amando Cintron MD Surgeon Vascular Surgery 08/25/21 Angélica Boyd, BARTOLOME Registered Nurse Pulmonary Disease 02/09/22 11/08/24 documented as of this encounter
--- OUTSIDE RECORDS SUMMARY | 2025-07-16 13:15 | XMS_ITS | Encounter Summary ---
Author Organization [facility] Address [address] [place] [address] Phone Care Team Providers Care Contracts Advisor Name Role Phone Sorin Santos MD Primary Care Provider Alfredo Negron MD Primary Care Provide r Amando Cintron MD Unavailable [phone] Sorin Santos MD Primary Care Provider Alfredo Negron MD Primary Care Provide r Angélica Boyd RN Unavailable Unavailable Rosalva Prince RN Unavailable [phone] Nisha Lepe RN Unavailable [phone] Harjeet Cintron MD Primary Care Prov ider Encounter Details Date Type Department Care Team (Latest Contact Info) Description 01/29/2019 Orders Only [facility] Scanning, Provider Social History Tobacco Use Types Packs/Day Years Used Date Smoking Tobacco: Every Day Cigarettes 1 40 Started: 12/1976; Last attempted to quit: 12/2016 Smokeless Tobacco: Never Alcohol Use Standard Drinks/Week Comments No 0 (1 standard drink = 0.6 oz pur e alcohol) x32 years Sex and Gender Information Value Date Recorded Sex Assigned at Not on file 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 [facility] Chronic Pain Care Plan Chronic Care Management No change(09/20 9:23 AM ADMINISTRATIVE OFFICE CLERK) No Marla Sheppard RN Note: Problem: Chronic [...] Date/Time Associated Diagnosis Comments SCAN - LABS 01/29/2019 CARDIOLOGY DOCUMENT SCAN 01/29/2019 documented in this encounter Results * SCAN - LABS (01/29/2019) us Provider Scanning Final Result * SCAN - CARDIOLOGY (01/29/2019) Anatomical Region Laterality Modality Other us Provider [...] documented as of this encounter Care Teams Contracts Advisor Relationship Specialty Start Date End Date Sorin Santos MD [address] [address] PCP - General Internal Medicine 01/22/19 01/15/21 Alfredo Negron MD [address] [address] PCP - General 01/16/21 10/26/21 Sorin Santos MD [address] [address] PCP - General 10/27/21 10/27/21 Alfredo Negron MD 1 [facility] [address] [place] [address] PCP - General Internal Medicine 10/28/21 01/19/24 Harjeet Cintron MD 1 [place] [address] PCP - General 01/20/24 Amando Cintron MD 1 [facility] [address] [place] [address] Surgeon Vascular Surgery 08/25/21 Angélica Boyd RN Registered Nurse Pulmonary Disease 02/09/22 11/08/24 Rosalva Prince, RN 4590 [facility] [address] [place] [address] SHOP Outpatient Manager Green 01/03/23 01/15/23 Nisha Lepe RN [address] [place] [address] [address] [place] [address] Motor Builder Winder 01/21/23 02/16/23 documented as of this encounter
--- OUTSIDE RECORDS SUMMARY | 2025-07-16 13:16 | XMS_ITS | Encounter Summary ---
Author Organization [facility] Healthcare Address [address] [place] [address] Care Team Providers Care Automotive Technician Instructor Name Role Phone Amando Cintron MD Unavailable Alfredo Negron MD Primary Care Provide r Angélica Boyd RN Unavailable Unavailable Rosalva Prince RN Unavailable [phone] Nisha Lepe RN Unavailable [phone] Harjeet Cintron MD Primary Care Prov ider Encounter Details Date Type Department Care Team (Late st Contact Info) Description 12/15/2022 Telephone [facility] Primary Care Medicine Clinic [address] [facility] [address] [place] [address] Alfredo Negron MD [address] [facility] [address] [place] [address] Social History Tobacco Use Types Packs/Day Years Used Date Smoking Tobacco: Former Cigarettes 1 40 1 983 - 2022 Smokeless Tobacco: [...] more drinks on one occasion? 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 [facility] Chronic Pain Care Plan Chronic Care Management No change(09/20 9:23 AM PETS SALESPERSON) Marla Mcdaniel RN Note: Problem: Chronic Pain// [...] documented as of this encounter Care Teams Automotive Technician Instructor Relationship Specialty Start Date End Date Alfredo Negron MD PCP - General Internal Medicine 10/28/21 01/19/24 Harjeet Cintron MD 1 [place] [address] PCP - General 01/20/24 Amando Cintron MD Surgeon Vascular Surgery 08/25/21 Angélica Boyd, BARTOLOME Registered Nurse Pulmonary Disease 02/09/22 11/08/24 Rosalva Prince, BARTOLOME [address] [facility] [address] [place] [address] SHOP Outpatient Floral Manager 01/03/23 01/15/23 Nisha Lepe RN [address] [place] [address] [address] [place] [address] Senior Project Architect 01/21/23 02/16/23 documented as of this encounter
--- OUTSIDE RECORDS SUMMARY | 2025-07-16 13:16 | XMS_ITS | Encounter Summary ---
Author Organization [facility] Healthcare Address [address] [place] [address] Care Team Providers Care Injection Specialist Name Role Phone Amando Cintron MD Unavailable Alfredo Negron MD Primary Care Provide r Angélica Boyd RN Unavailable Unavailable Rosalva Prince RN Unavailable [phone] Nisha Lepe RN Unavailable [phone] Hrajeet Cintron MD Primary Care Prov ider Encounter Details Date Type Department Care Team (Late st Contact Info) Description 11/22/2022 Telephone [facility] Primary Care Medicine Clinic [address] [facility] [address] [place] [address] Alfredo Negron MD [address] [facility] [address] [place] [address] Social History Tobacco Use Types Packs/Day Years [...] on file Legal Sex Male 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 [facility] Chronic Pain Care Plan Chronic Care Management No change(09/20 9:23 AM RN PROGRESSIVE CARE) Marla Mcdaniel RN Note: Problem: Chronic Pain// [...] documented as of this encounter Care Teams Injection Specialist Relationship Specialty Start Date End Date Alfredo Negron MD PCP - General Internal Medicine 10/28/21 01/19/24 Harjeet Cintron MD 1 [place] [address] PCP - General 01/20/24 Amando Cintron MD Surgeon Vascular Surgery 08/25/21 Angélica Boyd, BARTOLOME Registered Nurse Pulmonary Disease 02/09/22 11/08/24 Rosalva Prince, BARTOLOME [address] [facility] [address] [place] [address] SHOP Outpatient Courtesy Clerk 01/03/23 01/15/23 Nisha Lepe RN [address] [place] [address] [address] [place] [address] Human Resource Management Instructor 01/21/23 02/16/23 documented as of this encounter
--- OUTSIDE RECORDS SUMMARY | 2025-07-16 13:16 | XMS_ITS | Encounter Summary ---
Author Organization [facility] Healthcare Address [address] [place] [address] Care Team Providers Care Line Repairer Tower Name Role Phone Amando Cintron MD Unavailable Alfredo Negron MD Primary Care Provide r Angélica Boyd RN Unavailable Unavailable Rosalva Prince RN Unavailable [phone] Nisha Lepe RN Unavailable [phone] Harjeet Cintron MD Primary Care Prov ider Encounter Details Date Type Department Care Team (Late st Contact Info) Description 07/05/2022 Telephone [facility] Primary Care Medicine Clinic [address] 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 [facility] Chronic Pain Care Plan Chronic Care Management No change(09/20 9:23 AM PAYROLL ACCOUNTING CLERK) Marla Mcdaniel RN Note: Problem: Chronic Pain// [...] documented as of this encounter Care Teams Line Repairer Tower Relationship Specialty Start Date End Date Alfredo Negron MD PCP - General Internal Medicine 10/28/21 01/19/24 Harjeet Cintron MD 1 [place] [address] PCP - General 01/20/24 Amando Cintron MD Surgeon Vascular Surgery 08/25/21 Angélica Boyd RN Registered Nurse Pulmonary Disease 02/09/22 11/08/24 Rosalva Prince RN [address] [facility] [address] [place] [address] SHOP Outpatient Warehouse Supervisor [address] Shift 01/03/23 01/15/23 Nisha Lepe, BARTOLOME [address] [place] [address] [address] [place] [address] Special Tax Auditor 01/21/23 02/16/23 documented as of this encounter
--- OUTSIDE RECORDS SUMMARY | 2025-07-16 13:16 | XMS_ITS | Encounter Summary ---
Author Organization [facility] Address [address] [place] [address] Phone Care Team Providers Care Inspector Final Assembly Mechanical Name Role Phone Bruce Guillaume MD PhD Primary Care Provide r Bruce Guillaume MD PhD Primary Care Provide r Erasmo Masters MD Primary Care Provider [phone] Bruce Guillaume MD PhD Primary Care Provide r Bruce Guillaume MD PhD Primary Care Provide r Erasmo Masters MD Primary Care Provider [phone] Bruce Guillaume MD PhD Primary Care Provide r Erasmo Masters MD Primary Care Provider [phone] Bruce Guillaume MD PhD Primary Care Provide r Erasmo Masters MD Primary Care Provider [phone] Bruce Guillaume MD PhD Primary Care Provide r Erasmo Masters MD Primary Care Provider [phone] Bruce Guillaume MD PhD Primary Care Provide r Erasmo Masters MD Primary Care Provider Bruce Guillaume MD PhD Primary Care Provide r Erasmo Masters MD Primary Care Provider Bruce Guillaume MD PhD Primary Care Provide r Sorin Santos MD Primary Care Provider Alfredo Negron MD Primary Care Provide r Amando Cintron MD Unavailable [phone] Sorin Santos MD Primary Care Provider Alfredo Negron MD Primary Care Provide r Angélica Boyd RN Unavailable Unavailable Rosalva Prince RN Unavailable [phone] Nisha Lepe RN Unavailable [phone] Harjeet Cintron MD Primary Care Prov ider Encounter Details Date Type Department Care Team (Latest Contact Info) Description 06/15/2017 Orders Only [facility] CONVERSION Scanning, Provider Social History Tobacco Use Types Packs/Day Years Used Date Smoking Tobacco: Never Assessed Sex and Gender Information Value Date Recorded Sex Assigned at Not on file 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 Sex 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 Gender Identity Not on file Sexual Orientation Not on file documented as of this encounter Plan of Treatment Scheduled Procedures Name Priority Associated Diagnoses Date/Ti me COLONOSCOPY Iron deficiency anemia, unspecified iron deficiency anemia type documented as of this encounter Procedures Procedure Name Priority Date/Time Associated Diagnosis Comments VASCULAR LABORATORY REPORT 06/15/2017 4:20 PM SHIPWRIGHT HELPER VASCULAR LABORATORY REPORT 06/15/2017 4:20 PM SHIPWRIGHT HELPER documented in this encounter Results * VASCULAR LABORATORY REPORT (06/15/2017 4:20 PM SHIPWRIGHT HELPER) Anatomical Region Laterality Modality Ultrasound us Provider Scanning CV VASCULAR PROCEDURES Final R esult * VASCULAR LABORATORY REPORT (06/15/2017 4:20 PM SHIPWRIGHT HELPER) Anatomical Region Laterality Modality Ultrasound us Provider Scanning CV VASCULAR PROCEDURES Final R esult documented in this encounter Visit Diagnoses Not on filedocumented in this encounter Additional Health Concerns Infection Onset 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, 2011 10/25/2010 10/25/201002/28 5:00 AM CDT COVID: Suspected 10/26/2021 10/26/2021 10/26/2021 4:46 PM CDT COVID: Suspected 01/02/2023 01/02/2023 01/02/2023 4:23 PM CDT documented as of this encounter Care Teams Inspector Final Assembly Mechanical Relationship Specialty Start Date End Date Bruce Guillaume MD PhD [address] [place] [address] [facility] [facility] [place] [address] PCP - General 06/09/17 06/25/17 Bruce Guillaume MD PhD [address] [place] [address] [place] [address] PCP - General 06/26/17 06/26/17 Erasmo Masters MD [address] [place] [address] PCP - General 06/27/17 06/27/17 Bruce Guillaume MD PhD [address] [place] [address] PCP - General 06/28/17 06/28/17 Bruce Guillaume MD PhD [address] [place] [address] PCP - General 06/29/17 07/10/17 Erasmo Masters MD [address] [facility] [place] [address] PCP - General 07/11/17 07/27/17 Bruce Guillaume MD PhD [address] [address] [place] [address] PCP - General 07/28/17 07/28/17 Erasmo Masters MD [address] [place] [address] PCP - General 07/29/17 08/20/17 Bruce Guillaume MD PhD [address] [place] [address] [place] [address] PCP - General 08/21/17 08/23/17 Erasmo Masters MD [address] [place] [address] PCP - General 08/24/17 09/17/17 Bruce Guillaume MD PhD [address] [place] [address] [place] [address] PCP - General 09/18/17 10/05/17 Erasmo Masters MD [address] [place] [address] PCP - General 10/06/17 10/17/17 Bruce Guillaume MD PhD [address] [place] [address] [place] [address] PCP - General 10/18/17 10/23/17 Erasmo Masters MD [address] [place] [address] PCP - General 10/24/17 10/24/17 Bruce Guillaume MD PhD [address] [place] [address] PCP - General 10/25/17 11/20/17 Erasmo Masters MD [address] [place] [address] PCP - General 11/21/17 11/21/17 Bruce Guillaume MD PhD [address] [place] [address] PCP - General 11/22/17 01/21/19 Sorin Santos MD 1 [facility] [address] [place] [address] PCP - General Internal Medicine 01/22/19 01/15/21 Alfredo Negron MD 1 [facility] [address] [place] [address] PCP - General 01/16/21 10/26/21 Sorin Santos MD 1 [facility] [address] [place] [address] PCP - General 10/27/21 10/27/21 Alfredo Negron MD 1 [facility] [address] [place] [address] PCP - General Internal Medicine 10/28/21 01/19/24 Harjeet Cintron MD 1 [place] [address] PCP - General 01/20/24 Amando Cintron MD 1 [facility] [address] [place] [address] Surgeon Vascular Surgery 08/25/21 Angélica Boyd RN Registered Nurse Pulmonary Disease 02/09/22 11/08/24 Rosalva Prince RN [address] [facility] [address] [place] [address] SHOP Outpatient Application Performance Engineer 01/03/23 01/15/23 Nisha Lepe RN [address] [place] [address] 300 [place] [address] Substation Operator 01/21/23 02/16/23 documented as of this encounter
--- OUTSIDE RECORDS SUMMARY | 2025-07-16 13:16 | XMS_ITS | Encounter Summary ---
Author Organization [facility] Address [address] [place] [address] Phone Care Team Providers Care Steno Pool Supervisor Name Role Phone Bruce Guillaume MD PhD Primary Care Provide r Erasmo Masters MD Primary Care Provider [phone] Bruce Guillaume MD PhD Primary Care Provide r Erasmo Masters MD Primary Care Provider [phone] Bruce Guillaume MD PhD Primary Care Provide r Erasmo Masters MD Primary Care Provider [phone] Bruce Guillaume MD PhD Primary Care Provide r Bruce Guillaume MD PhD Primary Care Provide r Erasmo Masters MD Primary Care Provider [phone] Bruce Guillaume MD PhD Primary Care Provide r Bruce Guillaume MD PhD Primary Care Provide r Erasmo Masters MD Primary Care Provider [phone] Bruce Guillaume MD PhD Primary Care Provide r Erasmo Masters MD Primary Care Provider [phone] Bruce Guillaume MD PhD Primary Care Provide r Erasmo Masters MD Primary Care Provider [phone] Bruce Guillaume MD PhD Primary Care Provide r Erasmo Masters MD Primary Care Provider [phone] Mark[place], Bruce Gregory MD PhD Primary Care Provide r Erasmo Masters MD Primary Care Provider [phone] Markell, Bruce Gregory MD PhD Primary Care Provide r Erasmo Masters MD Primary Care Provider [phone] [place], Bruce Gregory MD PhD Primary Care Provide r Sorin Santos MD Primary Care Provider Alfredo Negron MD Primary Care Provide r Amando Cintron MD Unavailable [phone] Sorin Santos MD Primary Care Provider Alfredo Negron MD Primary Care Provide r Angélica Boyd RN Unavailable Unavailable Rosalva Prince RN Unavailable [phone] Nisha Lepe RN Unavailable [phone] Harjeet Cintron MD Primary Care Prov ider Encounter Details Date Type Department Care Team (Latest Contact Info) Description 01/27/2017 Orders Only [facility] CONVERSION Scanning, Provider Social History Tobacco Use Types Packs/Day Years Used Date Smoking Tobacco: Never Assessed Sex and Gender Information Value Date Recorded Sex Assigned at Not on file 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 Sex Male 1:17 AM 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 Gender Identity Not on file Sexual Orientation Not on file documented as of this encounter Plan of Treatment Scheduled Procedures Name Priority Associated Diagnoses Date/Ti me COLONOSCOPY Iron deficiency anemia, unspecified iron deficiency anemia type documented as of this encounter Procedures Procedure Name Priority Date/Time Associated Diagnosis Comments VASCULAR LABORATORY REPORT 02/15/2017 3:28 PM CDT VASCULAR LABORATORY REPORT 01/27/2017 1:48 AM CDT VASCULAR LABORATORY REPORT 01/27/2017 1:48 AM CDT documented in this encounter Results * VASCULAR LABORATORY REPORT (02/15/2017 3:28 PM CDT) Anatomical Region Laterality Modality Ultrasound us Provider Scanning CV VASCULAR PROCEDURES Final R esult * VASCULAR LABORATORY REPORT (01/27/2017 1:48 AM CDT) Anatomical Region Laterality Modality Ultrasound us Provider Scanning CV VASCULAR PROCEDURES Final R esult * VASCULAR LABORATORY REPORT (01/27/2017 1:48 AM CDT) Anatomical Region Laterality Modality Ultrasound us Provider [...] documented as of this encounter Care Teams Steno Pool Supervisor Relationship Specialty Start Date End Date Bruce Guillaume MD PhD [address] [address] [address] [place] [address] PCP - General 11/24/16 02/05/17 Erasmo Masters MD [address] [place] [address] PCP - General 02/06/17 05/28/17 Bruce Guillaume MD PhD [address] [place] [address] PCP - General 05/29/17 05/29/17 Erasmo Masters MD [address] [place] [address] PCP - General 05/30/17 05/31/17 Bruce Guillaume MD PhD [address] [place] [address] PCP - General 06/01/17 06/01/17 Erasmo aMsters MD [address] [place] [address] PCP - General 06/02/17 06/08/17 Bruce Guillaume MD PhD [address] [place] [address] PCP - General 06/09/17 06/25/17 Bruce Guillaume MD PhD [address] [facility] [address] [place] [address] PCP - General 06/26/17 06/26/17 Erasmo Masters MD [address] [place] [address] PCP - General 06/27/17 06/27/17 Bruce Guillaume MD PhD [address] [facility] [address] [place] [address] PCP - General 06/28/17 06/28/17 Bruce Guillaume MD PhD [address] [place] [address] PCP - General 06/29/17 07/10/17 Erasmo Masters MD [address] [place], [place] [address] PCP - General 07/11/17 07/27/17 Bruce Guillaume MD PhD [address] [place] [address] [facility] [place] [address] PCP - General 07/28/17 07/28/17 Erasmo Masters MD [address] [place] [address] PCP - General 07/29/17 08/20/17 Bruce Guillaume MD PhD [address] [place] [address] [facility] [place] [address] PCP - General 08/21/17 08/23/17 Erasmo Masters MD [address] [place], [place] [address] PCP - General 08/24/17 09/17/17 Bruce Guillaume MD PhD [address] [facility] [place] [address] PCP - General 09/18/17 10/05/17 Erasmo Masters MD [address] [place], [place] [address] PCP - General 10/06/17 10/17/17 Bruce Guillaume MD PhD [address] [place] [address] PCP - General 10/18/17 10/23/17 Erasmo Masters MD [address] [place] [address] PCP - General 10/24/17 10/24/17 Bruce uGillaume MD PhD [address] [place] [address] PCP - General 10/25/17 11/20/17 Erasmo Masters MD [address] [place] [address] PCP - General 11/21/17 11/21/17 Bruce Guillaume MD PhD [address] [place] [address] PCP - General 11/22/17 01/21/19 Sorin Santos MD [address] [address] PCP - General Internal Medicine 01/22/19 01/15/21 Alfredo Negron MD [address] [address] PCP - General 01/16/21 10/26/21 Sorin Santos MD [address] [address] PCP - General 10/27/21 10/27/21 Alfredo Negron MD 1 [facility] [address] [place] [address] PCP - General Internal Medicine 10/28/21 01/19/24 Harjeet Cintron MD 1 [place] [address] PCP - General 01/20/24 Amando Cintron MD [address] [address] Surgeon Vascular Surgery 08/25/21 Angélica Boyd RN Registered Nurse Pulmonary Disease 02/09/22 11/08/24 Rosalva Prince, RN [address] [facility] [address] [place] [address] SHOP Outpatient Technical Supervisor 01/03/23 01/15/23 Nisha Lepe, [place] [address] [place] [address] [address] [place] [address] Research Anthropologist 01/21/23 02/16/23 documented as of this encounter
--- OUTSIDE RECORDS SUMMARY | 2025-07-16 13:16 | XMS_ITS | Encounter Summary ---
Author Organization [facility] Healthcare Address [address] [place] [address] Care Team Providers Care Home Therapy Clinician Name Role Phone Amando Cintron MD Unavailable Alfredo Negron MD Primary Care Provide r Angélica Boyd RN Unavailable Unavailable Rosalva Prince RN Unavailable Nisha Lepe RN Unavailable Harjeet Cintron MD Primary Care Prov ider Encounter Details Date Type Department Care Team (Late st Contact Info) Description 09/05/2022 Telephone [facility] Primary Care Medicine Clinic [address] 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 [facility] Chronic Pain Care Plan Chronic Care Management No change(09/20 9:23 AM HVAC DESIGN MECHANICAL ENGINEER) Marla Mcdaniel RN Note: Problem: Chronic Pain// [...] documented as of this encounter Care Teams Home Therapy Clinician Relationship Specialty Start Date End Date Alfredo Negron MD PCP - General Internal Medicine 10/28/21 01/19/24 Harjeet Cintron MD 1 [place] [address] PCP - General 01/20/24 Amando Cintron MD Surgeon Vascular Surgery 08/25/21 Angélica Boyd, [place] Registered Nurse Pulmonary Disease 02/09/22 11/08/24 Rosalva Prince, [place] 45[address] [facility] [address] [place] [address] SHOP Outpatient Healthcare Administrator 01/03/23 01/15/23 Nisha Lepe RN [address] [place] [address] [address] [place] [address] Graphic Design Manager 01/21/23 02/16/23 documented as of this encounter
--- OUTSIDE RECORDS SUMMARY | 2025-07-16 13:16 | XMS_ITS | Encounter Summary ---
Author Organization [facility] Healthcare Address [address] [place] [address] Care Team Providers Care Automotive Service Advisor Name Role Phone Amando Cintron MD Unavailable Alfredo Negron MD Primary Care Provide r Angélica Boyd RN Unavailable Unavailable Rosalva Prince RN Unavailable [phone] Nisha Lepe RN Unavailable [phone] Harjeet Cintron MD Primary Care Prov ider Encounter Details Date Type Department Care Team (Late st Contact Info) Description 08/25/2022 Telephone [facility] Primary Care Medicine Clinic [address] [facility] [address] [place] [address] Alfredo Negron MD [address] [facility] [address] [place] [address] Social History Tobacco Use Types Packs/Day Years [...] on file 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 [facility] Chronic Pain Care Plan Chronic Care Management No change(09/20 9:23 AM RURAL MAIL CONTRACTOR) Marla Mcdaniel RN Note: Problem: Chronic Pain// [...] as of this encounter Care Teams Automotive Service Advisor Relationship Specialty Start Date End Date Aflredo Negron MD PCP - General Internal Medicine 10/28/21 01/19/24 Harjeet Cintron MD 1 [place] [address] PCP - General 01/20/24 Amando Cintron MD Surgeon Vascular Surgery 08/25/21 Angélica Boyd RN Registered Nurse Pulmonary Disease 02/09/22 11/08/24 Rosalva Prince, [place] 45[address] [facility] [address] [place] [address] SHOP Outpatient Mover Helper 01/03/23 01/15/23 Nisha Lepe, [place] [address] [place] [address] [address] [place] [address] Campus Director 01/21/23 02/16/23 documented as of this encounter
--- OUTSIDE RECORDS SUMMARY | 2025-07-16 13:16 | XMS_ITS | Encounter Summary ---
Author Organization [facility] Address [address] [place] [address] Phone Care Team Providers Care Production Control Specialist Name Role Phone Bruce Guillaume MD PhD [...] Care Provide r Amando Cintron MD Unavailable Sorin Santos MD Primary Care Provider Alfredo Negron MD Primary Care Provide r Angélica Boyd RN Unavailable Unavailable Rosalva Prince RN Unavailable [phone] Nisha Lepe RN Unavailable Harjeet Cintron MD Primary Care Prov ider Encounter Details Date Type Department Care Team (Latest Contact Info) Description 09/18/2017 Orders Only [facility] CONVERSION Scanning, Provider Social History Tobacco Use Types Packs/Day Years Used Date Smoking Tobacco: Former Sex and Gender Information Value Date Recorded Sex Assigned at Not on file 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 Gender Identity Not on file Sexual Orientation Not on file documented as of this encounter Plan of Treatment Scheduled Procedures Name Priority Associated Diagnoses Date/Ti me COLONOSCOPY Iron deficiency anemia, unspecified iron deficiency anemia type documented as of this encounter Procedures Procedure Name Priority Date/Time Associated Diagnosis Comments VASCULAR LABORATORY REPORT 09/18/2017 9:00 PM ROLL FORM OPERATOR VASCULAR LABORATORY REPORT 09/18/2017 9:00 PM ROLL FORM OPERATOR documented in this encounter Results * VASCULAR LABORATORY REPORT (09/18/2017 9:00 PM ROLL FORM OPERATOR) Anatomical Region Laterality Modality Ultrasound us Provider Scanning CV VASCULAR PROCEDURES Final R esult * VASCULAR LABORATORY REPORT (09/18/2017 9:00 PM ROLL FORM OPERATOR) Anatomical Region Laterality Modality Ultrasound us Provider [...] documented as of this encounter Care Teams Production Control Specialist Relationship Specialty Start Date End Date Bruce Guillaume MD PhD [address] [place] [address] PCP - General 09/18/17 10/05/17 Erasmo Masters MD [address] [place] [address] PCP - General 10/06/17 10/17/17 Bruce Guillaume MD PhD [address] [place] [address] PCP - General 10/18/17 10/23/17 Erasmo Masters MD [address] [place] [address] PCP - General 10/24/17 10/24/17 Bruce Guillauem MD PhD [address] [place] [address] PCP - General 10/25/17 11/20/17 Erasmo Masters MD [address] [place] [address] PCP - General 11/21/17 11/21/17 Bruce Guillaume MD PhD [address] [place] [address] PCP - General 11/22/17 01/21/19 Sorin Santos MD 1 [facility] [address] [place] [address] PCP - General Internal Medicine 01/22/19 01/15/21 Alfredo Negron MD 1 [facility] [address] [place] [address] PCP - General 01/16/21 10/26/21 Sorin Santos MD 1 [facility] [address] [place] [address] PCP - General 10/27/21 10/27/21 Alfredo Negron MD 1 [facility] [address] [place] [address] PCP - General Internal Medicine 10/28/21 01/19/24 Harjeet Cintron MD 1 [place] [address] PCP - General 01/20/24 Amando Cintron MD 1 [facility] [address] [place] [address] Surgeon Vascular Surgery 08/25/21 Angélica Boyd RN Registered Nurse Pulmonary Disease 02/09/22 11/08/24 Rosalva Prince RN [address] [facility] [address] [place] [address] SHOP Outpatient Signs And Displays Salesperson 01/03/23 01/15/23 Nisha Lepe RN [address] [place] [address] [address] [place] [address] Dope Heater 01/21/23 02/16/23 documented as of this encounter
--- OUTSIDE RECORDS SUMMARY | 2025-07-16 13:16 | XMS_ITS | Encounter Summary ---
Author Organization [facility] Healthcare Address [address] [place] [address] Care Team Providers Care Bulk Plant Operator Name Role Phone Amando Cintron MD Unavailable [phone] Alfredo Negron MD Primary Care Provide r Angélica Boyd RN Unavailable Unavailable Rosalva Prince RN Unavailable [phone] Nisha Lepe RN Unavailable [phone] Harjeet Cintron MD Primary Care Prov ider Encounter Details Date Type Department Care Team (Late st Contact Info) Description 09/02/2022 Telephone [facility] Primary Care Medicine Clinic [address] [facility] [address] [place] [address] Dewayne Valentine Social History Tobacco Use Types Packs/Day Years [...] on file 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 Gender Identity Not on file Sexual Orientation [...] Chronic Care Management No change(09/20 9:23 AM STORE STOCKER) Marla Mcdaniel RN Note: Problem: Chronic Pain// [...] documented as of this encounter Care Teams Bulk Plant Operator Relationship Specialty Start Date End Date Alfredo Negron MD PCP - General Internal Medicine 10/28/21 01/19/24 Harjeet Cintron MD 1 [place] [address] PCP - General 01/20/24 Amando Cintron MD Surgeon Vascular Surgery 08/25/21 Angélica Boyd RN Registered Nurse Pulmonary Disease 02/09/22 11/08/24 Rosalva Prince, [place] [address] [facility] [address] [place] [address] SHOP Outpatient Therapeutic Riding Instructor 01/03/23 01/15/23 Nisha Lepe, [place] [address] [place] [address] [address] [place] [address] Gas Plant Specialist 01/21/23 02/16/23 documented as of this encounter
--- OUTSIDE RECORDS SUMMARY | 2025-07-16 13:16 | XMS_ITS | Encounter Summary ---
Author Organization [facility] Healthcare Address [address] [place] [address] Care Team Providers Care Epidemiologist Name Role Phone Amando Cintron MD Unavailable Alfredo Negron MD Primary Care Provide r Angélica Boyd RN Unavailable Unavailable Rosalva Prince RN Unavailable Nisha Lepe RN Unavailable Harjeet Cintron MD Primary Care Prov ider Encounter Details Date Type Department Care Team (Late st Contact Info) Description 08/23/2022 Telephone [facility] Primary Care Medicine Clinic [address] 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 [facility] Chronic Pain Care Plan Chronic Care Management No change(09/20 9:23 AM REEXAMINER) Marla Mcdaniel RN Note: Problem: Chronic Pain// [...] documented as of this encounter Care Teams Epidemiologist Relationship Specialty Start Date End Date Alfredo Negron MD PCP - General Internal Medicine 10/28/21 01/19/24 Harjeet Cintron MD 1 [place] [address] PCP - General 01/20/24 Amando Cintron MD Surgeon Vascular Surgery 08/25/21 Angélica Boyd RN Registered Nurse Pulmonary Disease 02/09/22 11/08/24 Rosalva Prince, [place] [address] [facility] [address] [place] [address] SHOP Outpatient Land Survey Technician 01/03/23 01/15/23 Nisha Lepe, [place] [address] [place] [address] 300 [place] [address] Market Development Trainer 01/21/23 02/16/23 documented as of this encounter
--- OUTSIDE RECORDS SUMMARY | 2025-07-16 13:16 | XMS_ITS | Encounter Summary ---
Author Organization [facility] Healthcare Address [address] [place] [address] Care Team Providers Care Pepper Picker Name Role Phone Amando Cintron MD Unavailable [phone] Harjeet Cintron MD Primary Care Prov ider Reason for Referral * (Routine) - Pending Review Specialty Diagnoses / Procedures Referred By Contlaura t Referred To Contact Diagnoses Hx of AKA (above knee amputation), left (HCC) Procedures Miscellaneous DME Harjeet Cintron MD [address] [place] [address] Phone: tel: fax: Referral ID Status Reason Start Date Expiration Date V isits Requested Visits Authorized [id number] Pending Review 07/15/2025 08/14/2026 1 1 OTAPE SALES REPRESENTATIVE Encounter Details Date Type Department Care Team (Late st Contact Info) Description 07/15/2025 Orders Only [facility] Primary Care Medicine Clinic [address] [facility] [address] [place] [address] Harjeet Cintron MD 1 [place] [address] Hx of AKA (above knee amputation), left (HCC) (Primary Dx) Social History Tobacco Use Types Packs/Day Years [...] often do you attend chur ch or baptism services? Never 05/11/2023 Do you belong to any clubs o r organizations such as yazidi groups, unions, fraternal or athletic groups, or [...] place to sleep or slept in a nursing home (including now)? No 05/11/2023 AUDIT-C Answer [...] on file Legal Sex Male 1:17 AM VIDEOTAPE SALES REPRESENTATIVE Gender Identity Not on file Sexual Orientation Not on file documented as of this encounter Progress Notes * Harjeet Cintron MD - 07/15/2025 8:01 AM CST Order placed for 20 inch wide front wheeled walker. OTAPE SALES REPRESENTATIVE documented in this encounter Plan of [...] take, when to call CM or provider. [facility] Chronic Pain Care Plan Chronic Care Management No change(09/20 9:23 AM VIDEOTAPE SALES REPRESENTATIVE) Marla Mcdaniel, RN Note: Problem: Chronic Pain// ABD pain, legs Goals: 1. Minimize further functional decline 2. Maximize quality of life 3. Control pain Strategies: - Activity/exercise program recommendation - Conservative stepwise pain medicine strategy with multi-disciplinary approach - Recommend healthy lifestyle strategies and compensatory methods as needed documented as of this encounter Visit Diagnoses Diagnosis Hx of AKA (above knee amputation), left (HCC)- Primary documented in this encounter Orders General Supply Count Last Ordered Date First Or dered Date MISCELLANEOUS DME 1 07/15/2025 documented in this encounter Care Teams Pepper Picker Relationship Specialty Start Date End Date Harjeet Cintron MD 1 [place] [address] PCP - General 01/20/24 Amando Cintron MD Surgeon Vascular Surgery 08/25/21 documented as of this encounter
--- OUTSIDE RECORDS SUMMARY | 2025-07-16 13:16 | XMS_ITS | Encounter Summary ---
Author Organization [facility] Healthcare Address [address] [place] [address] Care Team Providers Care Financial Services Agent Name Role Phone Amando Cintron MD Unavailable Alfredo Negron MD Primary Care Provide r Angélica Boyd RN Unavailable Unavailable Rosalva Prince RN Unavailable [phone] Nisha Lepe RN Unavailable [phone] Harjeet Cintron MD Primary Care Prov ider Encounter Details Date Type Department Care Team (Late st Contact Info) Description 08/29/2022 Telephone [facility] Primary Care Medicine Clinic [address] [facility] [address] [place] [address] Alfredo Negron MD [address] [facility] [address] [place] [address] Social History Tobacco Use Types Packs/Day Years [...] on file Legal Sex Male 1:17 AM TOOLS PROGRAMMER Gender Identity Not on file Sexual Orientation [...] (rather than stopping them without telling anyone). [facility] Chronic Pain Care Plan Chronic Care Management No change(09/20 9:23 AM TOOLS PROGRAMMER) Marla Mcdaniel RN Note: Problem: Chronic Pain// [...] documented as of this encounter Care Teams Financial Services Agent Relationship Specialty Start Date End Date Alfredo Negron MD PCP - General Internal Medicine 10/28/21 01/19/24 Harjeet Cintron MD 1 [place] [address] PCP - General 01/20/24 Amando Cintron MD Surgeon Vascular Surgery 08/25/21 Angélica Boyd RN Registered Nurse Pulmonary Disease 02/09/22 11/08/24 Rosalva Prince, BARTOLOME [address] [facility] [address] [place] [address] SHOP Outpatient Oim Consultant 01/03/23 01/15/23 Nisha Lepe, BARTOLOME [address] [place] [address] [address] [place] [address] Assistant Maintenance Manager 01/21/23 02/16/23 documented as of this encounter
--- OUTSIDE RECORDS SUMMARY | 2025-07-16 13:16 | XMS_ITS | Encounter Summary ---
Author Organization [facility] Healthcare Address [address] [place] [address] Care Team Providers Care Biophysics Professor Name Role Phone Amando Cintron MD Unavailable Alfredo Negron MD Primary Care Provide r Angélica Boyd RN Unavailable Unavailable Rosalva Prince RN Unavailable [phone] Nisha Lepe RN Unavailable [phone] Harjeet Cintron MD Primary Care Prov ider Encounter Details Date Type Department Care Team (Late st Contact Info) Description 11/25/2022 Telephone [facility] Primary Care Medicine Clinic [address] [facility] [address] [place] [address] Alfredo Negron MD [address] [facility] [address] [place] [address] Social History Tobacco Use Types Packs/Day Years [...] on file Legal Sex Male 1:17 AM SPECIAL EDUCATION ADMINISTRATOR Gender Identity Not on file Sexual Orientation [...] Management Improving( 1:04 PM CDT) No Zahira aLmar RN Smoking Goal - Patient will be [...] (rather than stopping them without telling anyone). [facility] Chronic Pain Care Plan Chronic Care Management No change(09/20 9:23 AM SPECIAL EDUCATION ADMINISTRATOR) Marla Mcdaniel RN Note: Problem: Chronic Pain// [...] documented as of this encounter Care Teams Biophysics Professor Relationship Specialty Start Date End Date Alfredo Negron MD PCP - General Internal Medicine 10/28/21 01/19/24 Harjeet Cintron MD 1 [place] [address] PCP - General 01/20/24 Amando Cintron MD Surgeon Vascular Surgery 08/25/21 Angélica Boyd, BARTOLOME Registered Nurse Pulmonary Disease 02/09/22 11/08/24 Rosalva Prince, BARTOLOME [address] [facility] [address] [place] [address] SHOP Outpatient Stevedoring Superintendent 01/03/23 01/15/23 Nisha Lepe RN [address] [place] [address] [address] [place] [address] Lactation Nurse 01/21/23 02/16/23 documented as of this encounter
--- OUTSIDE RECORDS SUMMARY | 2025-07-16 13:16 | XMS_ITS | Encounter Summary ---
Author Organization [facility] Healthcare Address [address] [place] [address] Care Team Providers Care Nursing Professor Name Role Phone Amando Cintron MD Unavailable Alfredo Negron MD Primary Care Provide r Angélica Boyd RN Unavailable Unavailable Rosalva Prince RN Unavailable [phone] Nisha Lepe RN Unavailable Harjeet Cintron MD Primary Care Prov ider Encounter Details Date Type Department Care Team (Late st Contact Info) Description 08/17/2022 Telephone [facility] Primary Care Medicine Clinic [address] [facility] [address] [place] [address] Alfredo Negron MD [address] [facility] [address] [place] [address] Social History Tobacco Use Types Packs/Day Years [...] on file Legal Sex Male 1:17 AM CERTIFIED CORPORATE TRAVEL EXECUTIVE Gender Identity Not on file Sexual Orientation Not on file documented as of this encounter Functional Status * Alcohol Withdrawal BP Hierarchy Answer Date of Assessment Author Ibanez 08/19/2022 2:21 PM CERTIFIED CORPORATE TRAVEL EXECUTIVE Brandon Sarabia MA documented as of this [...] Chronic Care Management No change(09/20 9:23 AM CERTIFIED CORPORATE TRAVEL EXECUTIVE) Marla Mcdaniel, RN Note: Problem: Chronic Pain// [...] documented as of this encounter Care Teams Nursing Professor Relationship Specialty Start Date End Date Alfredo Negron MD PCP - General Internal Medicine 10/28/21 01/19/24 Harjeet Cintron MD 1 [place] [address] PCP - General 01/20/24 Amando Cintron MD Surgeon Vascular Surgery 08/25/21 Angélica Boyd RN Registered Nurse Pulmonary Disease 02/09/22 11/08/24 Rosalva Prince RN [address] [facility] [address] [place] [address] SHOP Outpatient Instructional Designer 01/03/23 01/15/23 Nisha Lepe RN [address] [facility] [address] [place] [address] Software Development Coordinator 01/21/23 02/16/23 documented as of this encounter
--- OUTSIDE RECORDS SUMMARY | 2025-07-16 13:16 | XMS_ITS | Encounter Summary ---
Author Organization [facility] Healthcare Address [address] [place] [address] Care Team Providers Care Decal Cutter Name Role Phone Amando Cintron MD Unavailable Alfredo Negron MD Primary Care Provide r Angélica Boyd RN Unavailable Unavailable Rosalva Prince RN Unavailable [phone] Nisha Lepe RN Unavailable [phone] Harjeet Cintron MD Primary Care Prov ider Encounter Details Date Type Department Care Team (Late st Contact Info) Description 07/20/2022 Telephone [facility] Primary Care Medicine Clinic [address] [facility] [address] [place] [address] Alfredo Negron MD [address] [facility] [address] [place] [address] Social History Tobacco Use Types Packs/Day Years [...] on file Legal Sex Male 1:17 AM TIN POURER Gender Identity Not on file Sexual Orientation [...] (rather than stopping them without telling anyone). [facility] Chronic Pain Care Plan Chronic Care Management No change(09/20 9:23 AM TIN POURER) Marla Mcdaniel RN Note: Problem: Chronic Pain// [...] documented as of this encounter Care Teams Decal Cutter Relationship Specialty Start Date End Date Alfredo Negron MD PCP - General Internal Medicine 10/28/21 01/19/24 Harjeet Cintron MD 1 [place] [address] PCP - General 01/20/24 Amando Cintron MD Surgeon Vascular Surgery 08/25/21 Angélica Boyd RN Registered Nurse Pulmonary Disease 02/09/22 11/08/24 Rosalva Prince RN [address] [facility] [address] [place] [address] SHOP Outpatient Photographic Equipment Mechanic 01/03/23 01/15/23 Nisha Lepe, BARTOLOME [address] [place] [address] [address] [place] [address] Tray Worker 01/21/23 02/16/23 documented as of this encounter
--- OUTSIDE RECORDS SUMMARY | 2025-07-16 13:16 | XMS_ITS | Encounter Summary ---
Author Organization [facility] Address [address] [place] [address] Phone Care Team Providers Care Trailer Park Manager Name Role Phone Erasmo Masters MD Primary Care Provider [phone] Markell, Bruce Gregory MD PhD Primary Care Provide r Erasmo Masters MD Primary Care Provider [phone] Markell, Bruce Gregory MD PhD Primary Care Provide r Erasmo Masters MD Primary Care Provider [phone] Markell, Bruce Gregory MD PhD Primary Care Provide r Bruce Guillaume MD PhD Primary Care Provide r Erasmo Masters MD Primary Care Provider [phone] Bruce Guillaume MD PhD Primary Care Provide r Bruce Guillaume MD PhD Primary Care Provide r Erasmo Masters MD Primary Care Provider [phone] Bruce Guillaume MD PhD Primary Care Provide r Erasmo Masters MD Primary Care Provider [phone] Markell, Bruce Gregory MD PhD Primary Care Provide r Erasmo Masters MD Primary Care Provider [phone] Bruce Guillaume MD PhD Primary Care Provide r Erasmo Masters MD Primary Care Provider [phone] Bruce Guillaume MD PhD Primary Care Provide r Erasmo Masters MD Primary Care Provider [phone] Bruce Guillaume MD PhD Primary Care Provide r Erasmo Masters MD Primary Care Provider [phone] Markell, Bruce Gregory MD PhD Primary Care Provide r Sorin Santos MD Primary Care Provider Alfredo Negron MD Primary Care Provide r Amando Cintron MD Unavailable Sorin Santos MD Primary Care Provider Alfredo Negron MD Primary Care Provide r Angélica Boyd RN Unavailable Unavailable Rosalva Prince RN Unavailable [phone] Nisha Lepe RN Unavailable Harjeet Cintron MD Primary Care Prov ider Encounter Details Date Type Department Care Team (Latest Contact Info) Description 03/09/2017 Orders Only [facility] CONVERSION Scanning, Provider Social History Tobacco Use Types Packs/Day Years Used Date Smoking Tobacco: Never Assessed Sex and Gender Information Value Date Recorded Sex Assigned at Not on file Legal Sex Male 1:17 AM NUCLEAR PHYSICIST Gender Identity Not on file Sexual Orientation Not on file documented as of this encounter Plan of Treatment Scheduled Procedures Name Priority Associated Diagnoses Date/Ti me COLONOSCOPY Iron deficiency anemia, unspecified iron deficiency anemia type documented as of this encounter Procedures Procedure Name Priority Date/Time Associated Diagnosis Comments VASCULAR LABORATORY REPORT 03/09/2017 10:06 AM CDT VASCULAR LABORATORY REPORT 03/09/2017 10:06 AM CDT VASCULAR LABORATORY REPORT 03/09/2017 10:06 AM CDT documented in this encounter Results * VASCULAR LABORATORY REPORT (03/09/2017 10:06 AM CDT) Anatomical Region Laterality Modality Ultrasound us Provider Scanning CV VASCULAR PROCEDURES Final R esult * VASCULAR LABORATORY REPORT (03/09/2017 10:06 AM CDT) Anatomical Region Laterality Modality Ultrasound us Provider Scanning CV VASCULAR PROCEDURES Final R esult * VASCULAR LABORATORY REPORT (03/09/2017 10:06 AM CDT) Anatomical Region Laterality Modality Ultrasound [...] documented as of this encounter Care Teams Trailer Park Manager Relationship Specialty Start Date End Date Erasmo Masters MD [address] [place] [address] PCP - General 02/06/17 05/28/17 Bruce Guillaume MD PhD [address] [place] [address] PCP - General 05/29/17 05/29/17 Erasmo Masters MD [address] [place] [address] PCP - General 05/30/17 05/31/17 Bruce Guillaume MD PhD [address] [facility] [address] [place] [address] PCP - General 06/01/17 06/01/17 Erasmo Masters MD [address] [place] [address] PCP - General 06/02/17 06/08/17 Bruce Guillaume MD PhD [address] [place] [address] PCP - General 06/09/17 06/25/17 Bruce Guillaume MD PhD [address] [address] [place] [address] PCP - General 06/26/17 06/26/17 Erasmo Masters MD [address] [place] [address] PCP - General 06/27/17 06/27/17 Bruce Guillaume MD PhD [address] [facility] [address] [place] [address] PCP - General 06/28/17 06/28/17 Bruce Guillaume MD PhD [address] [facility] [address] [place] [address] PCP - General 06/29/17 07/10/17 Erasmo Masters MD [address] [place], [place] [address] PCP - General 07/11/17 07/27/17 Bruce Guillaume MD PhD [address] [place] [address] [place] [address] PCP - General 07/28/17 07/28/17 Erasmo Masters MD [address] [place] [address] PCP - General 07/29/17 08/20/17 Bruce Guillaume MD PhD [address] [place] [address] [place] [address] PCP - General 08/21/17 08/23/17 Erasmo Masters MD [address] [place], [place] [address] PCP - General 08/24/17 09/17/17 Bruce Guillaume MD PhD [address] [place] [address] [place] [address] PCP - General 09/18/17 10/05/17 Erasmo Masters MD [address] [place] [address] PCP - General 10/06/17 10/17/17 Bruce Guillaume MD PhD [address] [place] [address] [place] [address] PCP - General 10/18/17 10/23/17 Erasmo Masters MD [address] [place] [address] PCP - General 10/24/17 10/24/17 Bruce Guillaume MD PhD [address] [address] PCP - General 10/25/17 11/20/17 Erasmo Masters MD [address] [place] [address] PCP - General 11/21/17 11/21/17 Bruce Guillaume MD PhD [address] [place] [address] PCP - General 11/22/17 01/21/19 Sorin Santos MD [id number] [place] [address] PCP - General Internal Medicine 01/22/19 01/15/21 Alfredo Negron MD [address] [address] PCP - General 01/16/21 10/26/21 Sorin Santos MD 1 [facility] [address] [place] [address] PCP - General 10/27/21 10/27/21 Alfredo Negron MD [id number] [place] [address] PCP - General Internal Medicine 10/28/21 01/19/24 Harjeet Cintron MD 1 [place] [address] PCP - General 01/20/24 Amando Cintron MD 1 [facility] [address] [place] [address] Surgeon Vascular Surgery 08/25/21 Angélica Boyd RN Registered Nurse Pulmonary Disease 02/09/22 11/08/24 Rosalva Prince, BARTOLOME [address] [facility] [address] [place] [address] SHOP Outpatient Africana Studies Professor 01/03/23 01/15/23 Nisha Lepe RN [address] [place] [address] [address] [place] [address] Hearing Aid Assembly Supervisor 01/21/23 02/16/23 documented as of this encounter
--- OUTSIDE RECORDS SUMMARY | 2025-07-16 13:16 | XMS_ITS | Encounter Summary ---
Author Organization [facility] Healthcare Address [address] [place] [address] Care Team Providers Care Hr Assistant Name Role Phone Amando Cintron MD Unavailable Alfredo Negron MD Primary Care Provide r Angélica Boyd RN Unavailable Unavailable Rosalva Prince RN Unavailable [phone] Nisha Lepe RN Unavailable Harjeet Cintron MD Primary Care Prov ider Encounter Details Date Type Department Care Team (Late st Contact Info) Description 08/22/2022 Telephone [facility] Primary Care Medicine Clinic [address] [facility] [address] [place] [address] Alfredo Negron MD [address] [facility] [address] [place] [address] Social History Tobacco Use Types Packs/Day Years [...] on file 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 Gender Identity Not on file Sexual Orientation Not on file documented as of this encounter Functional Status * BP Location Answer Date of Assessment Author Right arm 08/22/2022 9:50 AM Guille May[place], [place]ET[place] * BP Location Answer Date of Assessment Author Right arm 08/22/2022 9:50 AM Guille [place]field, RMA documented as of this encounter Plan [...] Chronic Care Management No change(09/20 9:23 AM MOTTLER OPERATOR) Marla Mcdaniel RN Note: Problem: Chronic [...] documented as of this encounter Care Teams Hr Assistant Relationship Specialty Start Date End Date Alfredo Negron MD PCP - General Internal Medicine 10/28/21 01/19/24 Harjeet Cintron MD 1 [place] [address] PCP - General 01/20/24 Amando Cintron MD Surgeon Vascular Surgery 08/25/21 Angélica Boyd RN Registered Nurse Pulmonary Disease 02/09/22 11/08/24 Rosalva Prince RN [address] [facility] [address] [place] [address] SHOP Outpatient Log Raft Worker 01/03/23 01/15/23 Nisha Lepe RN [address] [facility] [address] [place] [address] Yacht Captain 01/21/23 02/16/23 documented as of this encounter
--- OUTSIDE RECORDS SUMMARY | 2025-07-16 13:16 | XMS_ITS | Encounter Summary ---
Author Organization [facility] Healthcare Address [address] [place] [address] Care Team Providers Care Binding Dyer Name Role Phone Amando Cintron MD Unavailable Alfredo Negron MD Primary Care Provide r Angélica Boyd RN Unavailable Unavailable Rosalva Prince RN Unavailable [phone] Nisha Lepe RN Unavailable [phone] Harjeet Cintron MD Primary Care Prov ider Encounter Details Date Type Department Care Team (Late st Contact Info) Description 08/26/2022 Telephone [facility] Primary Care Medicine Clinic [address] [facility] [address] [place] [address] Alfredo Negron MD [address] [facility] [address] [place] [address] Social History Tobacco Use Types Packs/Day Years [...] on file Legal Sex Male 1:17 AM NURSING INFORMATICS SPECIALIST Gender Identity Not on file Sexual [...] (rather than stopping them without telling anyone). [facility] Chronic Pain Care Plan Chronic Care Management No change(09/20 9:23 AM NURSING INFORMATICS SPECIALIST) Marla Mcdaniel RN Note: Problem: Chronic Pain// [...] documented as of this encounter Care Teams Binding Dyer Relationship Specialty Start Date End Date Alfredo Negron MD PCP - General Internal Medicine 10/28/21 01/19/24 Harjeet Cintron MD 1 [place] [address] PCP - General 01/20/24 Amando Cintron MD Surgeon Vascular Surgery 08/25/21 Angélica Boyd RN Registered Nurse Pulmonary Disease 02/09/22 11/08/24 Rosalva Prince, BARTOLOME [address] [facility] [address] [place] [address] SHOP Outpatient Laborer Brooder Farm 01/03/23 01/15/23 Nisha Lepe, BARTOLOME [address] [place] [address] [address] [place] [address] Sample Tester 01/21/23 02/16/23 documented as of this encounter
--- OUTSIDE RECORDS SUMMARY | 2025-07-16 13:16 | XMS_ITS | Encounter Summary ---
Author Organization [facility] Address [address] [place] [address] Phone Care Team Providers Care Child Care Giver Name Role Phone Amando Cintron MD Unavailable Harjeet Cintron MD Primary Care Prov ider Encounter Details Date Type Department Care Team (Late st Contact Info) Description 07/16/2025 Telephone [facility] Medicine Cardiology [address] [facility] Advanced Medicine 8th [place] [address] [place] [address] Murali Chandra MD [address] [facility] [address] [place] [address] Social History Tobacco Use Types Packs/Day Years [...] attend chur ch or mosque services? Never 05/11/2023 Do you belong to any clubs o r organizations such as scientologist groups, unions, fraternal or athletic groups, or [...] on file Legal Sex Male 1:17 AM ANVIL WORKER Gender Identity Not on file Sexual Orientation Not on file documented as of this encounter Miscellaneous Notes * Telephone Encounter - Nadege King - 07/16/2025 10:57 AM CST Corazon Pt had his Echo completed yesterday, 07/15/25. Pt wondering if has recvd and been able to reviewthe results? Pls return call to pt to discuss. L WORKER documented in this encounter Plan of Treatment [...] track(2022 12:31 PM CDT) No Nisha Lepe, BARTOLOME Note: Problem: Knowledge deficit related to signs [...] take, when to call CM or provider. [facility] Chronic Pain Care Plan Chronic Care Management No change(09/20 9:23 AM ANVIL WORKER) No Marla Sheppard, RN Note: Problem: Chronic [...] on filedocumented in this encounter Care Teams Child Care Giver Relationship Specialty Start Date End Date Harjeet Cintron MD 1 [place] [address] PCP - General 01/20/24 Amando Cintron MD Surgeon Vascular Surgery 08/25/21 documented as of this encounter
--- OUTSIDE RECORDS SUMMARY | 2025-07-16 13:17 | XMS_ITS | Encounter Summary ---
Author Organization [facility] Healthcare Address [address] [place] [address] Care Team Providers Care Junior Art Director Name Role Phone Amando Cintron MD Unavailable Alfredo Negron MD Primary Care Provide r Angélica Boyd RN Unavailable Unavailable Rosalva Prince RN Unavailable [phone] Nisha Lepe RN Unavailable [phone] Harjeet Cintron MD Primary Care Prov ider Encounter Details Date Type Department Care Team (Late st Contact Info) Description 09/21/2022 Telephone [facility] Primary Care Medicine Clinic [address] [facility] [address] [place] [address] Alfredo Negron MD [address] [facility] [address] [place] [address] Social History Tobacco Use Types Packs/Day Years [...] file Legal Sex Male 1:17 AM NURSING INFORMATION SYSTEMS COORDINATOR Gender Identity Not on file Sexual Orientation [...] (rather than stopping them without telling anyone). [facility] Chronic Pain Care Plan Chronic Care Management No change(09/20 9:23 AM NURSING INFORMATION SYSTEMS COORDINATOR) Marla Mcdaniel RN Note: Problem: Chronic Pain// [...] documented as of this encounter Care Teams Junior Art Director Relationship Specialty Start Date End Date Alfredo Negron MD PCP - General Internal Medicine 10/28/21 01/19/24 Harjeet Cintron MD [address] [place] [address] PCP - General 01/20/24 Amando Cintron MD Surgeon Vascular Surgery 08/25/21 Angélica Boyd, BARTOLOME Registered Nurse Pulmonary Disease 02/09/22 11/08/24 Rosalva Prince, BARTOLOME [address] [facility] [address] [place] [address] [facility] Outpatient Web Publisher 01/03/23 01/15/23 Nisha Lepe RN [address] [place] [address] [address] [place] [address] Lookback Coordinator 01/21/23 02/16/23 documented as of this encounter
--- OUTSIDE RECORDS SUMMARY | 2025-07-16 13:17 | XMS_ITS | Encounter Summary ---
Author Organization [facility] Healthcare Address [address] [place] [address] Care Team Providers Care Range Aide Name Role Phone Amando Cintron MD Unavailable Alfredo Negron MD Primary Care Provide r Angélica Boyd RN Unavailable Unavailable Rosalva Prince RN Unavailable [phone] Nisha Lepe RN Unavailable Harjeet Cintron MD Primary Care Prov ider Encounter Details Date Type Department Care Team (Late st Contact Info) Description 09/19/2022 Telephone [facility] Primary Care Medicine Clinic [address] [facility] [address] [place] [address] Alfredo Negron MD [address] [facility] [address] [place] [address] Social History Tobacco Use Types Packs/Day Years [...] on file Legal Sex 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) Marla Mcdaniel RN Note: Problem: Chronic Pain// [...] documented as of this encounter Care Teams Range Aide Relationship Specialty Start Date End Date Alfredo Negron MD PCP - General Internal Medicine 10/28/21 01/19/24 Harjeet Cintron MD [address] [place] [address] PCP - General 01/20/24 Amando Cintron MD Surgeon Vascular Surgery 08/25/21 Angélica Boyd, BARTOLOME Registered Nurse Pulmonary Disease 02/09/22 11/08/24 Rosalva Prince, BARTOLOME [address] [facility] [address] [place] [address] SHOP Outpatient Cafe Or Restaurant Manager 01/03/23 01/15/23 Nisha Lepe RN [address] [place] [address] [address] [place] [address] Client Experience Consultant 01/21/23 02/16/23 documented as of this encounter
--- OUTSIDE RECORDS SUMMARY | 2025-07-16 13:17 | XMS_ITS | Clinical Summary ---
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 Name Role Phone Koko Cintron MD Unavailable [phone] Harjeet Cintron MD Primary Care Prov ider Allergies Active Allergy Reactions Criticality Noted Date Comments Amoxicillin-Pot Clavulanate Swelling Medium 12/01/2016 Ciprofloxacin Other (See comments) Low lethargy Codeine Itching Low 06/15/2022 Lidocaine Blisters High 08/11/2020 SPRAY(when had EGD) Sulfamethoxazole-Trimeth oprim Swelling Medium 12/01/2016 Medications oxygenIndicatio ns:Dyspnea Administer 3 L/min into each nostril continuously at 180,000 mL/hr Active lancets 28 gauge miscIndications :DM2 1 Units 3 (three) times a day 100 each 3 023 Active cyanocobalamin (Vitamin B-12) 1,000 mcg tabletIndicatio ns:Prevention of Vitamin B12 Deficiency Take 1 tablet (1,000 mcg total) by mouth daily 90 tablet 3 023 Active blood-glucose meter miscIndications :DM2 1 unit marking on U-100 syringe 3 (three) times a day Please check blood sugars 3x daily 1 each 023 Active blood glucose diagnostic stripIndication s:DM2 Please check blood sugar 3 times daily 200 each 3 023 Active ferrous sulfate 325 mg (65 mg of elemental iron) tabletIndicatio ns:Iron Deficiency Anemia Take 1 tablet (65 mg of elemental iron total) by mouth 2 (two) times a day Active ascorbic acid (ascorbic acid with wendi hips) 500 mg tablet,chewable Indications:Vit foster C Deficiency Take 1 tablet/chew tab by mouth daily Active cholecalciferol (VITAMIN D-3) 5,000 unit capsuleIndicati ons:Vitamin D Deficiency Take 2 capsules by mouth daily Active multivitamin tabletIndicatio ns:Vitamin Deficiency Prevention Take 1 tablet by mouth Active naloxone (NARCAN) 4 mg/actuation spray,non-aeros ol Administer 1 spray into affected nostril(s) as needed for opioid reversal or respiratory depression Call 911. Administer a single spray in one nostril. Repeat every 3 minutes as needed if no or minimal response. 2 each 023 Active BD Ultra-Fine Mini Pen Needle 31 gauge x 3/16 needleIndicatio ns:DM2 Inject 5 mm as directed 5 (five) times a day (with meals, nightly, and 2 AM) 100 each 3 024 Active venlafaxine XR (EFFEXOR-XR) 75 mg 24 hr capsuleIndicati ons:Mild episode of recurrent major depressive disorder Take 1 capsule (75 mg total) by mouth daily Take with food. 14 capsule 024 Active carvediloL (COREG) 6.25 mg tabletIndicatio ns:hypertension Take 1 tablet (6.25 mg total) by mouth 2 (two) times a day with meals 180 tablet 3 024 Active traZODone (DESYREL) 150 mg tabletIndicatio ns:Chronic pain syndrome Take 2 tablets (300 mg total) by mouth nightly 60 tablet 11 024 Active psyllium husk (KONSYL) 6 gram packet Take 1 packet (6 g total) by mouth daily 30 packet 2 024 Active rivaroxaban (XARELTO) 20 mg tabletIndicatio ns:atrial fibrillation,Ve nous Thrombosis Take 1 tablet (20 mg total) by mouth daily with breakfast 90 tablet 3 025 2025 Active sodium chloride-aloe vera spray,non-aeros olIndications:r hinitis Administer 1 spray into each nostril every 2 (two) hours as needed (dry nose) [address] (PROTONIX) 40 mg EC tabletIndicatio ns:Stress Ulcer Prophylaxis Take 1 tablet (40 mg total) by mouth daily 90 tablet 3 025 2025 Active tamsulosin (FLOMAX) 0.4 mg extended release capsuleIndicati ons:benign prostatic hyperplasia with lower urinary tract sx Take 1 capsule (0.4 mg total) by mouth every morning 90 capsule 3 025 Active metFORMIN (GLUCOPHAGE) 1,000 mg tabletIndicatio ns:type 2 diabetes mellitus Take 1 tablet (1,000 mg total) by mouth 2 (two) times a day with meals 180 tablet 3 Active glucagon (Gvoke HypoPen 2-Pack) 1 mg/0.2 mL auto-injectorIn dications:patie nt with diabetes mellitus at risk of hypoglycemia Inject 1 mg under the skin as needed (for use in case of emergency for hypoglycemia) 0.4 mL 2 Active atorvastatin (LIPITOR) 80 mg tabletIndicatio ns:arterioscler otic vascular disease,hyperli pidemia Take 1 tablet (80 mg total) by mouth daily 90 tablet 3 Active gabapentin (NEURONTIN) 300 mg capsuleIndicati ons:Diabetic Peripheral Neuropathy TAKE 2 CAPSULES BY MOUTH 3 TIMES A DAY 180 capsule 5 Active evolocumab (REPATHA) syringe syringe Inject 1 mL (140 mg total) under the skin every 2 (two) weeks 2 mL Active furosemide (LASIX) 20 mg tabletIndicatio ns:Edema Take 1 tablet (20 mg total) by mouth daily 90 tablet 3 025 2025 Active fenofibrate (TRIGLIDE) 160 mg tabletIndicatio ns:hyperlipidem ia Take 1 tablet (160 mg total) by mouth daily 90 tablet 3 025 2025 Active cyanocobalamin (Vitamin B-12) 1,000 mcg tabletIndicatio ns:Prevention of Vitamin B12 Deficiency Take 1,000 mcg by mouth daily. Indications: prevention of vitamin B12 deficiency Active traZODone (DESYREL) 150 mg tabletIndicatio ns:insomnia associated with depression Take 150 mg by mouth nightly. Indications: insomnia associated with depression Active zinc gluconate 50 mg tabletIndicatio ns:Zinc Deficiency Take 50 mg by mouth daily. Indications: deficiency of zinc Active acetaminophen 500 mg capsuleIndicati ons:Pain Take 1,000 mg by mouth every 6 (six) hours as needed for mild pain (pain scale 1-4). Indications: pain Active blood-glucose,r eceiver,cont (Dexcom G7 Collection Specialist) [facility] For continuous use with Dexcom G7 sensors 1 each Active blood-glucose sensor (Dexcom G7 Sensor) device Will use 3 sensors per month to check blood sugar continuously. 3 each 11 Active aspirin 81 mg enteric coated tabletIndicatio ns:prevention of thrombosis Take 1 tablet (81 mg total) by mouth daily 90 tablet 3 Active nitroglycerin (NITROSTAT) 0.4 mg SL tabletIndicatio ns:acute episode of anginal pain Take as needed for anginal chest pain 100 tablet 3 Active albuterol HFA (Ventolin HFA) 90 mcg/actuation inhalerIndicati ons:ILD Inhale 2 puffs every 4 (four) hours as needed for wheezing or shortness of breath 8 g 5 025 2025 Active losartan (COZAAR) 25 mg tablet Take 1 tablet (25 mg total) by mouth daily 90 tablet 3 025 2025 Active predniSONE (DELTASONE) 5 mg tabletIndicatio ns:Interstitial Lung Disease Take 1 tablet (5 mg) by mouth daily 90 tablet 3 Active cephalexin (KEFLEX) 500 mg capsuleIndicati ons:Skin/Soft Tissue Infection Take 1 capsule (500 mg total) by mouth 3 (three) times a day for 14 days 42 capsule 025 2024 Active aspirin 81 mg enteric coated tabletIndicatio ns:prevention of thrombosis Take 1 tablet (81 mg total) by mouth daily 90 tablet 3 023 2024 Discontinued(R eorder) nitroglycerin (NITROSTAT) 0.4 mg SL tabletIndicatio ns:acute episode of anginal pain Take as needed for anginal chest pain 100 tablet 3 023 2024 Discontinued(R eorder) venlafaxine XR (EFFEXOR-XR) 37.5 mg 24 hr capsuleIndicati ons:Mild episode of recurrent major depressive disorder TAKE 1 CAPSULE BY MOUTH EVERY DAY 14 capsule 024 2024 Discontinued(T herapy completed) furosemide (LASIX) 20 mg tablet Take 1 tablet (20 mg total) by mouth daily 90 tablet 3 024 2024 Discontinued(R eorder) fenofibrate (TRIGLIDE) 160 mg tablet Take 1 tablet (160 mg total) by mouth daily 90 tablet 3 024 2024 Discontinued(P atient Reported) albuterol HFA (Ventolin HFA) 90 mcg/actuation inhalerIndicati ons:ILD Inhale 2 puffs every 4 (four) hours as needed for wheezing or shortness of breath 8 g 5 025 2024 Discontinued(R eorder) blood-glucose sensor (FreeStyle Demetrius 3 Plus Sensor) deviceIndicatio ns:DM2 Use one sensor every 15 days. 9 each 3 025 2024 Discontinued(A lternate therapy) insulin aspart (NovoLOG) 100 unit/mL (3 mL) pen for injectionIndica tions:type 2 diabetes mellitus Inject 2 units with lunch and 4 units with dinner. 15 mL 11 025 2024 Discontinued(T herapy completed) insulin glargine 100 unit/mL (3 mL) pen for injectionIndica tions:Type 2 diabetes mellitus with diabetic neuropathy, with long-term current use of insulin (HCC) Inject 4 Units under the skin daily 025 2024 Discontinued(D uplicate order) insulin glargine 100 unit/mL (3 mL) pen for injectionIndica tions:DM2 INJECT 5 UNITS UNDER THE SKIN DAILY 15 mL 11 025 2024 Discontinued(A lternate therapy) predniSONE (DELTASONE) 5 mg tabletIndicatio ns:Interstitial Lung Disease Take 5 mg by mouth daily. Indications: Interstitial Lung Disease 2024 Discontinued(R eorder) cephalexin (KEFLEX) 500 mg capsuleIndicati ons:Skin/Soft Tissue Infection Take 1 capsule (500 mg total) by mouth 3 (three) times a day for 14 days 3 capsule 025 2024 Discontinued Active Problems Problem Noted Date Diagnosed Date Hx of AKA (above knee amputation), left 03/24/20 Restless leg syndrome 02/19/2025 Assessment & Plan (02/19/2025 12:31 PM CDT): He has symptoms that may be consistent with RLS. This is not bothering him much at this time and he may be getting benefit from gabapentin, so it is reasonable to continue current gabapentin and re-evaluate as needed. If symptoms worsen it would be reasonable to check ferritin, and then empirically add or change medications. Vitamin D deficiency 02/06/2025 Hereditary and idiopathic neuropathy 02/05/2025 Assessment & Plan (02/19/2025 12:29 PM CDT): He has neuropathy in both hands as well as R leg. The most likely cause is diabetes but it is worth checking some other blood tests to be sure we are not missing other possible contributors. I counseled him that unfortunately it may not be possible to regain much nerve function from the damage that has already been done, but it is worth controlling blood sugar as well as possible going forward to prevent additional damage. I will coordinate with his PCP Dr. Cintron to check the following blood tests: B12, MMA (methylmalonic acid, to help interpret B12 level), and serum immunofixation (to look for autoimmune causes). He may benefit from occupational therapy for hand dexterity, including utensils or other tools with larger handles. I recommend that his PCP Dr. Cintron check the following labs for neuropathy if not done recently: B12, MMA, serum immunofixation. I gave him a hard copy referral for OT and explained he will need to identify the location and call to schedule. OK to continue same dose of gabapentin which may be providing some benefit for neuropathy pain symptoms. If Dr. Cintron wants him to follow up with a neurologist for neuropathy management, I can help with referral to one of my colleagues who specializes more in neuropathy. ILD (interstitial lung disease) 09/05/2024 Assessment & Plan (07/11/2025 12:21 PM REMEDIAL TEACHER): Orders: albuterol HFA (Ventolin HFA) 90 mcg/actuation inhaler; Inhale 2 puffs every 4 (four) hours as needed for wheezing or shortness of breath Diarrhea of presumed infectious origin 4 Overview (07/31/2024): Patient with 4+ loose/watery BMs daily for about 2 months. He denies other infectious symptoms, sick contacts, recent abx use, and dietary changes. He was prescribed psyllium fiber and imodium for symptomatic management at [facility] appt on 05/31/24. Assessment & Plan (11/27/2024 10:57 PM CDT): PLAN: - sent pt to 4th floor lab today to obtain stool culture kit, advised pt to complete this especially before his cruise ship trip next week Assessment & Plan (07/31/2024 10:14 PM REMEDIAL TEACHER): Patient symptoms are not much improved. Will pursue infectious workup. Patient advised to start psyllium fiber and to increase dietary fiber. PLAN: - Start psyllium fiber - Continue imodium prn - Stool culture, stool osmolality, fecal calprotectin, fecal leukocytes, fecal lactoferrin - Instructed patient to increase dietary fiber and educated patient on foods rich in fiber. Assessment & Plan (06/02/2024 4:31 PM REMEDIAL TEACHER): Patient reports 2 wk hx of watery diarrhea without other signs of infection, no sick contacts, no dietary changes, no recent abx use, and no red flag sx. This likely represents a viral gastroenteritis PLAN: - Continue conservative management - Instructed patient to trial psyllium fiber supplement or imodium for symptom management - Consider stool studies at next appt if diarrhea has not resolved Acute on chronic systolic an d diastolic heart failure, NYHA class 3 03/01/2024 Leg wound, right, subsequent encounter 4 Overview (01/01/2024): Developed late October 2023. Not thought to be infected Assessment & Plan (06/02/2024 2:32 PM REMEDIAL TEACHER): Patient's new RLE wound appears most c/w with a slow-healing traumatic wound especially given patient's hx of poor wound healing with LLE amputation, active smoking, and active prednisone use. Concern for infection is low given lack of overt signs of superinfection.The pink tissue appears to be granulation tissue as opposed to erythema from cellulitis or erysipelas. PLAN: - Referral to wound care clinic Assessment & Plan (01/11/2024 5:47 PM CDT): Healing well without signs of superinfection. Continue current wound care measures. Assessment & Plan (11/29/2023 4:26 PM CDT): 2x3 cm R medial lower leg wound Some mild erythema surrounding wound, favor granulation tissue rather than true infection No systemic symptoms or signs of active infection Pt with underlying history of poor wound healing given severe PAD - Vaseline PRN, gentle soap washing, covering - Gave return criteria - Close follow-up scheduled Encounter for surgical after care following surgery on the circulatory system 09/11/2023 Complex regional pain syndro me type 1 of left lower extremity 08/14/2023 Phantom limb syndrome 08/14/2023 Pain of amputation stump of left lower extremity 08/14/2023 Radiculopathy, lumbosacral region 08/14/2023 Spinal stenosis of lumbar re gion without neurogenic claudication 08/14/2023 Skin lesion 06/19/2023 Assessment & Plan (06/19/2023 12:59 PM REMEDIAL TEACHER): On scalp-L parietal, nummular. Another circular flesh-colored lesion over top of occiput. Noticed the former after a haircut. Picture in media tab showing approx 2x2cm circular raised hyperpigmented lesion. No pain or pruritus. They think it developed fairly recently. - trial antifungal shampoo - derm referral Severe protein-calorie malnutrition 05/11/2023 Assessment & Plan (05/12/2023 9:24 AM CDT): - RD consult - Regular diet and supplements Anemia 05/10/2023 Assessment & Plan (06/06/2023 2:46 PM REMEDIAL TEACHER): Mildly below baseline, but also iso recent hospitalization / AKA. No signs/symptoms of bleeding today. Would repeat CBC next visit. Assessment & Plan (05/13/2023 6:05 AM CDT): - 1u PRBC given 05/10 intra-op and again 05/11 - hgb stable in 9s - daily CBC PAD (peripheral artery disease) 05/09/2023 Arterial insufficiency of lower extremity 2022 Assessment & Plan (06/23/2025 8:52 AM REMEDIAL TEACHER): Orders: Ambulatory referral to Home Health; Future Comprehensive metabolic panel; Future Transthoracic Echo (TTE) Complete W Doppler/CF; Future Assessment & Plan (05/16/2023 6:03 AM CDT): - Admit to Vascular from ER - OR 05/09 for LLE angiogram -> Selective LLE angiogram demonstrating patent L YARN TWISTER, occl bypass just distal to origin, patent profunda, heavily diseased SFA with occlusion distally and reconstitution of TPT with peroneal-dominant outflow, sluggish PT, AT occluded. Multiple attempts to cross distal fem-pop [employer]ENDAR CONTROL CL[employer]ANK unsuccessful - Venous duplex, CHATA arterial Doppler ordered - s/p OR for AKA 05/10 - PT/OT, OR dressing down on POD2 - nazia consulted for [facility] - Awaiting Rehab placement. Wound of foot 05/08/2023 Fatigue, unspecified type 01/02/2023 Assessment & Plan (05/04/2023 3:11 PM CDT): Discussed his chronic fatigue he has been experiencing. Suspect it is multifactorial in setting of his several comorbid conditions and his many medications he is on. Discussed reducing some of his many pain medications - Dose reduce venlafaxine to 150 mg daily - Encouraged them to call to assess response. HFmrEF 12/09/2022 Overview (06/19/2023): Regimen: coreg 6.25 mg BID, losartan 12.5, lasix 20 mg prn TTE 11/2022: EF 40% w/ apical sparing, 2/2 ICM Lisinopril stopped 01/2023 due to concern of hypotension and syncope. Assessment & Plan (03/03/2025 12:46 PM CDT): LVEF of 45% on TTE from 12/2022. Endorsing stable NYHA Class II symptoms. Activity limit due to amputation. Appears euvolemic upon examination today. Continue carvedilol. Has not tolerated Entresto or lisinopril in the past due to dizziness/LH and hyperkalemia. Jardiance cost prohibited and has hx of amputation. Continue Lasix for volume management. Assessment & Plan (02/12/2024 3:33 PM CDT): LVEF of 45% on TTE from 12/2022. Endorsing NYHA Class II symptoms. Activity limit due to amputation. Appears euvolemic upon examination today. Continue carvedilol. Has not tolerated Entresto or lisinopril in the past due to dizziness/LH and hyperkalemia. Jardiance cost prohibited. Continue Lasix for volume management. Assessment & Plan (07/07/2023 11:27 AM REMEDIAL TEACHER): Euvolemic on exam Losartan stopped at recent team visit due to hypotension in clinic and concern for iatrogenic syncope BP appropriate at home and in clinic today - Continue coreg BID and lasix daily PRN - HOLD losartan - Will discuss with cardiology and endocrinology appropriateness of SGLT given amputation risk and pt's recent amputation - Has follow-up with Cardiology scheduled Assessment & Plan (06/19/2023 12:51 PM REMEDIAL TEACHER): Soft diastolic BP 06/19, patient asx. Last visit they planned for lasix 20 prn, but there was some confusion and patient has been taking lasix 40mg daily. He is euvolemic/dry on exam today. - Check BMP, proBNP - Decrease Lasix to 20mg PRN as previously planned - ROV 07/07, BP recheck. Consider switching coreg to metop if needed. Assessment & Plan (06/06/2023 2:38 PM REMEDIAL TEACHER): 06/05/23 soft BPs, mild-mod symptoms (e.g. lightheadedness), while in rate- controlled AFib on losartan 12.5, carvedilol 6.25 BID, and empa 10. Patient also with some possible though unclear symptoms of volume overload. BMP/Mg checked today. - Stop empa due to amputation risk in this patient with recent L AKA. - Resume furosemide at dose of 20 qDay PRN. - Close 2-week f/u to assess for need to scale down GDMT iso soft BPs. Options include switching carvedilol to metoprolol, or discontinuing losartan. Assessment & Plan (05/13/2023 6:04 AM CDT): - Cards following. Okay to resume home regimen. - Based on prior history of lightheadedness with LARRY-I/entresto, rec trial a low dose of an ARB. Started losartan 12.5 daily. - continue home carvedilol 6.25 bid, PO Lasix 40, and jardiance - Per cards, start Aldactone 12.5mg today and increase to 25 tomorrow if tolerated-> increased 05/13 Assessment & Plan (02/21/2023 3:17 PM CDT): Euvolemic on exam, at dry weight Patient had issues with lisinopril at home, syncopal and hypotensive (patient prescribed 2.5 mg). Patient has close follow-up with Cardiology scheduled for next month - no changes to medication at this time. - consider addition of Aldactone at next appointment Assessment & Plan (01/25/2023 3:24 PM CDT): Patient euvolemic on exam. At baseline oxygen, 2 L. GDMT as above. Dry weight 144 lb, discussed the importance of daily weights. Patient has close follow-up with Cardiology scheduled in February. We will check CMP for follow-up after hospitalization. Assessment & Plan (01/18/2023 10:31 PM CDT): Now compensated, no lower extremity edema or increased shortness of breath. Spironolactone be discontinued due to lower blood pressure. Continue Lasix, Coreg, lisinopril. Follow up with Cardiology Assessment & Plan (01/17/2023 9:41 PM CDT): Currently compensated, no lower extremity edema. Dyspnea on exertion/breathing/pulmonary status at baseline. Continue Lasix, Coreg, lisinopril, Jardiance. We will need close cardiology follow-up. Assessment & Plan (01/13/2023 12:31 PM CDT): Recently diagnosed heart failure with reduced ejection fraction, likely ischemic. Recently started on guideline directed medical therapy. Now presenting with progressive volume overload concerning for acute on chronic decompensated heart failure. Symptoms complicated by symptomatic anemia -Hemodynamically stable, exam euvolemic today -Continue Lasix 40 mg PO daily -Continue Jardiance 10mg daily and carvedilol 6.25mg BID -Continue spironolactone 25mg daily -Strict I/Os, daily standing weights, low Na diet, telemetry -Currently awaiting bed/authorization Assessment & Plan (01/12/2023 12:00 PM CDT): Recently diagnosed heart failure with reduced ejection fraction, likely ischemic. Recently started on guideline directed medical therapy. Now presenting with progressive volume overload concerning for acute on chronic decompensated heart failure. Symptoms complicated by symptomatic anemia -Hemodynamically stable, exam euvolemic today -Continue Lasix 40 mg PO daily -Continue Jardiance 10mg daily and carvedilol 6.25mg BID -Continue spironolactone 25mg daily -Strict I/Os, daily standing weights, low Na diet, telemetry - PT/OT/SN ordered for discharge Assessment & Plan (01/11/2023 10:39 AM CDT): Recently diagnosed heart failure with reduced ejection fraction, likely ischemic. Recently started on guideline directed medical therapy. Now presenting with progressive volume overload concerning for acute on chronic decompensated heart failure. Symptoms complicated by symptomatic anemia -Hemodynamically stable, exam euvolemic today -Transitioned to Lasix 40 mg PO daily -Continue Jardiance 10mg daily and carvedilol 6.25mg BID -Continue spironolactone 25mg daily -Strict I/Os, daily standing weights, low Na diet, telemetry Assessment & Plan (01/10/2023 2:14 PM CDT): Recently diagnosed heart failure with reduced ejection fraction, likely ischemic. Recently started on guideline directed medical therapy. Now presenting with progressive volume overload concerning for acute on chronic decompensated heart failure. Symptoms complicated by symptomatic anemia -Hemodynamically stable, exam euvolemic today -Transitioned to Lasix 40 mg daily -Continue Jardiance 10mg daily and carvedilol 6.25mg BID -continue spironolactone 25mg daily -Strict I/Os, daily standing weights, low Na diet, telemetry Assessment & Plan (01/09/2023 10:39 AM CDT): Recently diagnosed heart failure with reduced ejection fraction, likely ischemic. Recently started on guideline directed medical therapy. Now presenting with progressive volume overload concerning for acute on chronic decompensated heart failure. Symptoms complicated by symptomatic anemia -Hemodynamically stable, exam euvolemic today -anticipate transitioning to oral lasix if stable post procedure -Continue Jardiance 10mg daily and carvedilol 6.25mg BID -continue spironolactone 25mg daily -Strict I/Os, daily standing weights, low Na diet, telemetry Assessment & Plan (01/08/2023 10:14 AM CDT): Recently diagnosed heart failure with reduced ejection fraction, likely ischemic. Recently started on guideline directed medical therapy. Now presenting with progressive volume overload concerning for acute on chronic decompensated heart failure. Symptoms complicated by symptomatic anemia -Hemodynamically stable, exam improving but remains volume overloaded -Continue diuresis with Lasix 80mg IV BID -Continue Jardiance 10mg daily and carvedilol 6.25mg BID -continue spironolactone 25mg daily -Strict I/Os, daily standing weights, low Na diet, telemetry Assessment & Plan (01/07/2023 6:43 PM CDT): Recently diagnosed heart failure with reduced ejection fraction, likely ischemic. Recently started on guideline directed medical therapy. Now presenting with progressive volume overload concerning for acute on chronic decompensated heart failure. Symptoms complicated by symptomatic anemia -Hemodynamically stable, exam improving but remains volume overloaded -Continue diuresis with Lasix 80mg IV BID -Continue Jardiance 10mg daily and carvedilol 6.25mg BID -Resume spironolactone 25mg daily -Strict I/Os, daily standing weights, low Na diet, telemetry Assessment & Plan (01/04/2023 12:09 PM CDT): Recently diagnosed heart failure with reduced ejection fraction, likely ischemic. Recently started on guideline directed medical therapy. Now presenting with progressive volume overload concerning for acute on chronic decompensated heart failure. Symptoms complicated by symptomatic anemia -continue carvedilol 6.25 mg BID -Hold lisinopril 5 mg daily, did not tolerate Entresto -lasix 80mg IV bid -continue Jardiance -will start spirolactone when hyperkalemia resolves -strict I/Os, daily standing weights, low Na diet -telemetry Assessment & Plan (12/27/2022 8:57 AM CDT): Clinically volume overloaded today with bilateral pitting edema and 10 lb weight gain in 1 week. Likely secondary to reduction in Lasix and receipt of blood transfusion week prior. Patient is a reliable historian with good health literacy so therefore will attempt to manage outpatient. Offered admission, patient declined. Plan - Lasix 40mg once a day in the morning - If weight is not decreasing by Monday, start taking 40mg twice a day, and pt to call the clinic - If weight is decreasing, continue with 40mg once per day Return in 1 week to check weight and labs. Patient had left heart catheterization scheduled for week of December 27 but this procedure was canceled after anemia was noted. Strict return precautions given to patient regarding worsening swelling, worsening shortness of breath, weight gain, chest pain, wet cough. Assessment & Plan (12/13/2022 4:41 PM CDT): - NO signs of overload in clinic today - Continue medication per cardiology, labs per cards Tremor 08/19/2022 Assessment & Plan (08/22/2022 11:14 AM REMEDIAL TEACHER): -does not appear to be parkinsonian -refer to neurology for movement disorder evaluation Longstanding persistent atrial fibrillation 02/2023 Overview (10/06/2023): Home meds: coreg 6.25 BID, xarelto 20 Assessment & Plan (03/03/2025 12:44 PM CDT): Rate controlled. Continue carvedilol and Xarelto. Denies any bleeding issues. Assessment & Plan (02/12/2024 3:29 PM CDT): Rate controlled. Continue carvedilol and Xarelto. Denies any bleeding issues. Assessment & Plan (05/15/2023 9:29 AM CDT): Rate controlled. On xarelto - telemetry - continue carvedilol. - holding Xarelto. Start therapeutic lovenox 05/15 Assessment & Plan (01/18/2023 10:30 PM CDT): Heart rate generally controlled with carvedilol. Continue anticoagulation with Xarelto Assessment & Plan (12/09/2022 12:09 PM CDT): Xarelto. Femoral artery stenosis, left 07/28/2021 Overview (07/28/2021): Added automatically from request for surgery [id number] Assessment & Plan (08/24/2021 12:13 PM REMEDIAL TEACHER): 08/24: s/p placement of a R SFA stent (6mm bare metal all the way from proximal SFA into his BK pop bypass) and POBA. - Pseudo duplex - Flat for 6 hours - Will get 300 of Plavix as long as his groin looks stable - Ambriz can come out after his bedrest is up - Home meds reordered - NV checks - pain control - Advance diet as tolerated - Likely home tomorrow High frequency hearing loss, bilateral 10/22/202 0 Erectile dysfunction 01/10/2020 Iron deficiency anemia 12/09/2019 Assessment & Plan (01/17/2023 9:38 PM CDT): Status post transfusion of 3 units packed red blood cells during hospital stay. Recent hemoglobin 9.6, follow-up labs in a.m. Assessment & Plan (01/16/2023 4:40 PM CDT): Order cbc, cmp Vitamin B 12 deficiency 09/27/2019 Cervical spondylosis with radiculopathy 07/18/20 Lumbar radiculopathy 07/18/2019 Anemia due to vitamin B12 deficiency 05/20/2019 Overview (01/25/2023): Previously established with hematology in ([place]) Workup at that time notable for B12, iron deficiencies BMB performed November 2019 w/ cytogenetics: normocellular marrow but a CCUS on cytogenetics. Previously has been on iron transfusions and B12 injections, recently nonadherent For GI losses: C-scope Jul 2020 w/ multiple polyps (tubular adenomas & hyperplastic poylps), hemorrhoids, recommended repeat in one year due to poor prep -- needed EGD in Jul 2020 w/ normal esophagus, gastritis, normal duodenum. Biopsies c/w iron def. Assessment & Plan (01/25/2023 3:25 PM CDT): No active bleeding currently as an outpatient for hospitalization EGD and colonoscopy largely unrevealing, some small AVMs. Discussed repeat follow-up colonoscopies and outpatient, patient is very disinterested in this as he does not want to undergo unnecessary or additional procedures - check CBC Assessment & Plan (01/18/2023 10:33 PM CDT): H&H has been stable, continue B12 supplementation. Assessment & Plan (01/16/2023 4:41 PM CDT): Cont b12 tablets Assessment & Plan (01/13/2023 12:30 PM CDT): Acute on chronic symptomatic anemia with Hgb drop from baseline of 10.0 to 6.6 in 6 months. Previously established with hematology with workup notable for iron and B12 deficiency and normocellular BMBx. Recurrent transfusions in the past week. Severely microcytotic with MCV 72, likely iron deficiency, unclear etiology of blood loss. Broad workup as per below -INR supratherapeutic on admission (6.4), warfarin was held and INR now downtrending (currently 2.1) -S/p IV iron sucrose 300mg x 3 doses and total of 3 units of PRBCs this admission -Hematology following -EGD and colonoscopy 08/11/2020 for iron deficiency anemia which showed gastritis (biopsies unrevealing) and colonoscopy with 4 polyps removed but with poor prep-recommended to get a repeat colonoscopy in 1 year which did not happen. -GI consulted--EGD and colonoscopy 01/09 with internal hemorrhoids and normal esophagus/stomach -Video capsule endoscopy completed and currently awaiting GI recs -Re-engage Hematology re: tolerance of DAPT -Hgb stable, follow CBCs -Maintain active T&S Assessment & Plan (01/12/2023 12:01 PM CDT): Acute on chronic symptomatic anemia with Hgb drop from baseline of 10.0 to 6.6 in 6 months. Previously established with hematology with workup notable for iron and B12 deficiency and normocellular BMBx. Recurrent transfusions in the past week. Severely microcytotic with MCV 72, likely iron deficiency, unclear etiology of blood loss. Broad workup as per below -INR supratherapeutic on admission (6.4), warfarin was held and INR now downtrending (currently 2.1) -S/p IV iron sucrose 300mg x 3 doses and total of 3 units of PRBCs this admission -Hematology following -EGD and colonoscopy 08/11/2020 for iron deficiency anemia which showed gastritis (biopsies unrevealing) and colonoscopy with 4 polyps removed but with poor prep-recommended to get a repeat colonoscopy in 1 year which did not happen. -GI consulted--EGD and colonoscopy 01/09 with internal hemorrhoids and normal esophagus/stomach -Video capsule endoscopy placed yesterday at 4:10PM, patient now advanced to a regular diet-awaiting results of study and recs from GI team -Re-engage Hematology re: tolerance of DAPT -Hgb stable, follow CBCs -Maintain active T&S Assessment & Plan (01/11/2023 10:43 AM CDT): Acute on chronic symptomatic anemia with Hgb drop from baseline of 10.0 to 6.6 in 6 months. Previously established with hematology with workup notable for iron and B12 deficiency and normocellular BMBx. Recurrent transfusions in the past week. Severely microcytotic with MCV 72, likely iron deficiency, unclear etiology of blood loss. Broad workup as per below -INR supratherapeutic on admission (6.4), warfarin was held and INR now downtrending (currently 2.1) -S/p IV iron sucrose 300mg x 3 doses and total of 3 units of PRBCs this admission -Hematology following -EGD and colonoscopy 08/11/2020 for iron deficiency anemia which showed gastritis (biopsies unrevealing) and colonoscopy with 4 polyps removed but with poor prep-recommended to get a repeat colonoscopy in 1 year which did not happen. -GI consulted--EGD and colonoscopy 01/09 with internal hemorrhoids and normal esophagus/stomach -S/p KUB this morning -GI recommending keeping pt NPO, prepping with Golytely 2L over 2 hours and then they will place video capsule endoscopy this afternoon -Re-engage Hematology re: tolerance of DAPT -Hgb stable, follow CBCs -Maintain active T&S Assessment & Plan (01/10/2023 2:07 PM CDT): Acute on chronic symptomatic anemia with Hgb drop from baseline of 10.0 to 6.6 in 6 months. Previously established with hematology with workup notable for iron and B12 deficiency and normocellular BMBx. Recurrent transfusions in the past week. Severely microcytotic with MCV 72, likely iron deficiency, unclear etiology of blood loss. Broad workup as per below -INR supratherapeutic on admission (6.4), warfarin was held and INR now downtrending (currently 2.1) -S/p IV iron sucrose 300mg x 3 doses and total of 3 units of PRBCs this admission -Hematology following -EGD and colonoscopy 08/11/2020 for iron deficiency anemia which showed gastritis (biopsies unrevealing) and colonoscopy with 4 polyps removed but with poor prep-recommended to get a repeat colonoscopy in 1 year which did not happen. -GI consulted--EGD and colonoscopy 01/09 with internal hemorrhoids and normal esophagus/stomach -Re-engage Hematology re: tolerance of DAPT -Hgb stable, -Follow CBCs -Maintain active T&S Assessment & Plan (01/09/2023 10:43 AM CDT): Acute on chronic symptomatic anemia with Hgb drop from baseline of 10.0 to 6.6 in 6 months. Previously established with hematology with workup notable for iron and B12 deficiency and normocellular BMBx. Recurrent transfusions in the past week. Severely microcytotic with MCV 72, likely iron deficiency, unclear etiology of blood loss. Broad workup as per below -INR supratherapeutic on admission (6.4), warfarin was held and INR now downtrending (currently 2.1) -S/p IV iron sucrose 300mg x 3 doses and total of 3 units of PRBCs this admission -Hematology following -EGD and colonoscopy 08/11/2020 for iron deficiency anemia which showed gastritis (biopsies unrevealing) and colonoscopy with 4 polyps removed but with poor prep-recommended to get a repeat colonoscopy in 1 year which did not happen. -GI consulted--EGD and colonoscopy today--await results -Hgb stable, -Follow CBCs -Maintain active T&S Assessment & Plan (01/08/2023 10:19 AM CDT): Acute on chronic symptomatic anemia with Hgb drop from baseline of 10.0 to 6.6 in 6 months. Previously established with hematology with workup notable for iron and B12 deficiency and normocellular BMBx. Recurrent transfusions in the past week. Severely microcytotic with MCV 72, likely iron deficiency, unclear etiology of blood loss. Broad workup as per below -INR supratherapeutic on admission (6.4), warfarin was held and INR now downtrending (currently 2.1) -S/p IV iron sucrose 300mg x 3 doses and 1 unit of PRBCs on 01/06 -Hematology following -EGD and colonoscopy 08/11/2020 for iron deficiency anemia which showed gastritis (biopsies unrevealing) and colonoscopy with 4 polyps removed but with poor prep-recommended to get a repeat colonoscopy in 1 year which did not happen. -GI consulted, tentative plan for EGD with colonoscopy Monday, started on clears. Release bowel prep and NPO tonight once GI confirms -Hgb stable, -Follow CBCs -Maintain active T&S Assessment & Plan (01/07/2023 6:40 PM CDT): Acute on chronic symptomatic anemia with Hgb drop from baseline of 10.0 to 6.6 in 6 months. Previously established with hematology with workup notable for iron and B12 deficiency and normocellular BMBx. Recurrent transfusions in the past week. Severely microcytotic with MCV 72, likely iron deficiency, unclear etiology of blood loss. Broad workup as per below -INR supratherapeutic on admission (6.4), warfarin was held and INR now downtrending (currently 2.1) -S/p IV iron sucrose 300mg x 3 doses and 1 unit of PRBCs on 01/06 -Hematology following -EGD and colonoscopy 08/11/2020 for iron deficiency anemia which showed gastritis (biopsies unrevealing) and colonoscopy with 4 polyps removed but with poor prep-recommended to get a repeat colonoscopy in 1 year which did not happen. -GI consulted and planning for EGD +/- colonoscopy next week with timing to be determined -Touch base with GI tomorrow regarding scheduling procedures and bowel prep timing -Hgb stable (8.9 today) -No overt signs of bleeding -Follow CBCs -Maintain active T&S Assessment & Plan (01/04/2023 11:54 AM CDT): Acute symptomatic anemia with Hgb drop from 10 to 6.6 in 6 months. Previously established with hematology with workup notable for iron and B12 deficiency and normocellular BMBx. Recurrent transfusions in the past week. Severely microcytotic with MCV 72, likely iron deficiency, unclear etiology of blood loss. Broad workup below Repeat iron panel as iron panel on admission hemolyzed No active source of bleeding Hematology called for consultation: follow up labs for hematology iron panel, copper, extra slide, tsh WNL, b12 reticulocyte count Noted patient told nursing staff he does not take b12 shots at home related to not liking pain associated with shot Spoke with GI this am; they will consult and make recs (last colonoscopy in 2020) holding heparin and xarelto as INR over 6.0 on admission; INR 3.6 today -hold Xarelto and heparin right now -maintain active T&S Assessment & Plan (03/12/2020 4:10 PM CDT): Followed by hematology, with B12, iron, and zinc deficiency - patient will follow up with heme and get screened for celiac disease Mild nonproliferative diabet ic retinopathy of both eyes without macular edema associated with type 2 diabetes mellitus 03/29/2019 Assessment & Plan (03/29/2019 8:51 AM CDT): Strict BS control, annual dilated eye exams. Combined form of age-related cataract, both eyes 03/29/2019 Assessment & Plan (03/29/2019 8:52 AM CDT): Likely symptomatic for glare, especially OD 2/2 PSC. Good BCVA, will increase ATs and nabil and come back for updated MRx. 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 Chronic dryness of both eyes 03/29/2019 Assessment & Plan (03/29/2019 8:59 AM CDT): See above. Tobacco use disorder, severe, dependence 019 Overview (07/31/2024): 41 pack year current smoker CT chest 07/2018 w/ stable subpleural reticular interstitial thickening c/f underlying ILD PFTs 08/2019: Mildy impaired DLCO and moderate obstructive defect Previously quit while on Wellbutrin, but stopped following 07/2022 hospitalization Assessment & Plan (07/31/2024 10:20 PM REMEDIAL TEACHER): PLAN: - Consider wellbutrin and NRT on RTC Assessment & Plan (04/12/2024 11:26 PM CDT): PLAN: - Readdress pharmacotherapy options at next appointment Assessment & Plan (01/16/2023 4:42 PM CDT): He reports that he no longer uses tobacco products; he declines a jose guadalupe patch Assessment & Plan (12/13/2022 10:42 AM CDT): Pt again smoking today, discussed extensively the impact this is having on his overall function and specifically his respiratory status - Refused wellbutrin and chantix today, c/f SE - Pt deferred patches or gum, will continue to try and quit on his own Assessment & Plan (10/19/2022 1:00 PM CDT): Smoking 1 PPD Discussed the impact this has on his ILD Pt aware and is attempting to quit Not interested in any additional resources and is thinking about setting a quit date. Assessment & Plan (03/12/2020 4:26 PM CDT): Patient smokes 1.5 packs per day and is not interested in quitting Assessment & Plan (02/14/2020 8:04 AM CDT): It appears that a high-res CT was ordered previously to further evaluate possible ILD but was never scheduled and the orders have likely -would encourage patient to schedule HRCT at follow up particularly given unexplained weight loss Nocturia 09/03/2018 Overview (09/03/2018): Urinating 3-4x nightly without urgency, dysuria, hematuria, weak stream, incontinence. In setting of regular soda intake and water Assessment & Plan (09/03/2018 4:04 PM REMEDIAL TEACHER): No concern for BPH. Likely 2/2 regular soda and water intake in evenings leading to osmotic diuresis in setting of diabetes -counseled on avoiding regular soda, especially at night Healthcare maintenance 07/13/2018 Overview (07/31/2024): General - A1c (for pts c BP >135/80): Lab Results Component Value Date HGBA1C 7.6 06/28/2023 Lab Results Component Value Date HGBA1C 7.6 06/28/2023 - Lipids (men >35): atorva 80, tricor 160 Lab Results Component Value Date LDLCALC 33 09/09/2022 - AAA (men 65-75 c smoking hx): CTA 04/2023 w/o evidence of AAA Cancer - Colonoscopy (age 45-75): last c-scope 12/2022 - Lung (50-80 c >20 pk-yr hx, and smoking in past 15yrs): 10/2023, repeat in 1 yr - Prostate (55-69, shared decision making): 0.4, normal, on 12/2015 Infectious Disease - HIV (13-64yo): 06/2019 negative - HBV: 12/2016 negative - HCV: 12/2016 neagtive - Gonorrhea/Chlamydia (MSM, women <24 or >25 w/ increased risk): NA - Syphilis (MSM annually, or men/women at increased risk): NA Immunizations - Influenza (annually): 05/2024 - Td/Tdap (q10 years): 05/2023 - PCV20 (>65, chronic conditions): 05/2024; pneumovax in 2011 - Shingles, 2 doses 2-6mo apart (age >50, chronic conditions): Encouraged 07/26/24 - HPV, 2 doses 6-12mo apart (<26, can discuss up to 45): NA - HAV (MSM or chronic liver disease): NA - HBV (DM, HIV, MSM, liver dz, CKD, healthcare workers): NA - Meningococcus (asplenia, college students): NA - HiB (asplenia, HSCT): NA - SARS-CoV-2: 05/2024 - RSV: provided prescription 07/26/24 Assessment & Plan (07/11/2025 12:21 PM REMEDIAL TEACHER): Orders: Basic metabolic panel; Future Assessment & Plan (07/31/2024 10:23 PM REMEDIAL TEACHER): PLAN: Encouraged to obtain shingles and RSV vaccines Assessment & Plan (06/02/2024 2:35 PM REMEDIAL TEACHER): PLAN: - Influenza, COVID, and PCV20 vaccination today - Encouraged patient to get shingles vaccination at local pharmacy Assessment & Plan (04/12/2024 11:25 PM CDT): PLAN: - Patient amenable to PCV20 but not at this appt due to upcoming trip; readdress at next appointment Assessment & Plan (03/12/2020 4:25 PM CDT): -C-scope 2015 hyperplastic polyps, due 2020 -CT chest 07/2018 with possible ILD, no suspicious nodules, High res CT pending -AAA screening at age 65 -HCV neg 2016 -HIV neg 06/2019 -Previously refused PPSV23, Tdap, HBV, and shingles -Flu shot given 05/20/19 - patient unwilling to receive pneumovax today Assessment & Plan (04/23/2019 9:51 AM CDT): Refused HIV, PPSV23, Tdap, HBV, and shingles at this visit. Assessment & Plan (10/26/2018 8:24 AM CDT): -repeat lipid panel today with LDL 54. Assessment & Plan (07/13/2018 5:14 PM REMEDIAL TEACHER): -flu shot Anxiety and depression 01/15/2018 Overview (06/19/2023): Currently on venlafaxine 150mg, trazadone 200mg QHS. Previously on Xanax 0.5mg BID PRN, self tapered Assessment & Plan (06/02/2024 2:29 PM REMEDIAL TEACHER): Patient reports depressed mood in the setting of current health issues. Denies SI. Expressed interest in talk therapy. PLAN: - Continue current regimen - Provided copy of [facility] resources - Consider augmentation of regimen at next appt Assessment & Plan (06/19/2023 1:04 PM REMEDIAL TEACHER): Reports ongoing anxiety and decreased mood in the setting of his recent health problems. No SI. States he will consider CBT after thanksgiving. Not interested in med adj at this time. - provided brief counseling and number for [facility] - recheck mood next visit - cont venlafaxine Assessment & Plan (05/11/2023 8:40 AM CDT): - PCP note from earlier this month notes reducing venlafaxine dose to 150mg from 225mg. Continue Assessment & Plan (03/21/2023 9:55 PM CDT): Patient endorses feeling done with it all. Reports distress with current poor health, denies active or passive thoughts of self-harm, denies thoughts of . Per chart review on venlafaxine. Patient reports occasionally feeling overwhelmed and wishes he had someone to talk to. -Provided w/ counselling mental health resources Assessment & Plan (01/18/2023 10:34 PM CDT): Mood overall stable, continue high dose venlafaxine Assessment & Plan (10/19/2022 1:06 PM CDT): Pt with significant anxiety related to his several comorbid conditions. No longer on methadone, tapered off during recent hospitalization. - Refill sent for xanax 0.5 mg BID Assessment & Plan (08/22/2022 11:17 AM REMEDIAL TEACHER): -started on alprazolam during recent hospitalization and finding significant benefit -no longer taking methadone for chronic pain -since patient is no longer regularly taking opioids and has significant anxiety related to multiple medical issues and chronic dyspnea, it seems reasonable to continue anxiolytics. Will continue alprazolam 0.5mg BID 60 tabs 0 refills and alert anchor RN to change in prescription. Obstructive sleep apnea syndrome in adult 2016 Overview (01/15/2018): Pt self d/c'ed CPAP 2/2 inability to sleep with the machine. Trialed on 4 different masks without success. DM2 c/b neuropathy 01/02/2017 Overview (11/27/2024): Regimen: metformin 1000mg; glargine 5u qAM; SSI. Stopped all short acting on 11/22/24 given hypoglycemia - SGLT2i contraindicated given PAD. GLP-1 contraindicated given hx of pancreatitis. DM2 Maintenance A1C: POCT 5.8% Lab Results Component Value Date HGBA1C 7.6 06/28/2023 Microalbumin: 02/12/2024: Albumin Creatinine Ratio, Ur <27; Albumin Ur <12.0; Creatinine Ur 44.2 sCr: 10/13/2023: Creatinine 0.80 Eyes: follows with an field education director in [place], last saw in 2022 ACEi / ARB: stopped 2/2 dizziness Statin: atorva 80 LDL: No results found for requested labs within last 730 days. Monitoring: Freestyle Demetrius 3 Assessment & Plan (11/27/2024 10:57 PM CDT): PLAN: - advised pt to stop all short acting insulin at night as suspect this is what is causing him to go low in the early AM since he takes his long acting insulin every morning. His sugars are very well controlled considering his A1c today - did provide him with very small correctional dose of Lispro 1u, advised him to take if his sugars are >250s Assessment & Plan (07/31/2024 10:19 PM REMEDIAL TEACHER): Patient states that he does not eat much food for dinner, and most of patient's hypoglycemic episodes occur in enterprise systems administrator. PLAN: - Decrease dinner time insulin aspart from 4u to 2u - Decrease insulin glargine from 6u to 5u as previously prescribed - Continue insulin aspart 4u breakfast and lunch Assessment & Plan (06/02/2024 2:43 PM REMEDIAL TEACHER): Patient reports having more above range BGs during the day frequently requiring correction and still some enterprise systems administrator hypoglycemic episodes. PLAN: - Decrease glargine from 6u to 5u - Increase insulin aspart from 2u to 4u daily - Instructed to schedule annual diabetic eye exam Assessment & Plan (04/12/2024 11:04 PM CDT): PLAN: - Decrease glargine from 8u to 6u nightly - Start prandial aspart 2u TIDAC Assessment & Plan (01/11/2024 5:43 PM CDT): A1c 6.5%, but overnight hypoglycemia and daytime hyperglycemia. Contraindications to GLP-1 RA and SGLT2i. - Decrease glargine 10 => 8 qDay - Add scheduled prandial aspart, 2u TIDAC - Continue aspart SSI (add 1 unit for every 50 above 150) Assessment & Plan (10/06/2023 9:44 AM REMEDIAL TEACHER): Following with Endocrinology A1C 7.7% today Remains on lantus and SSI, tolerating without complication No changes to regimen today Assessment & Plan (06/19/2023 12:56 PM REMEDIAL TEACHER): 06/05/23 stopping empa due to contraindication in this patient with PAD / recent amputation. GLP1-RA contraindicated given Hx pancreatitis. - cont metformin - cont glargine 10 for now given he has had both significant lows to 60s and highs to 460. - Ordered CGM - Endo appt end of May Assessment & Plan (06/06/2023 2:42 PM REMEDIAL TEACHER): 06/05/23 stopping empa due to contraindication in this patient with PAD / recent amputation. GLP1-RA contraindicated given Hx pancreatitis. Monitor glucoses and consider uptitration of basal insulin if appropriate. Continue metformin 35716 BID. Needs to remain on pred for his ILD. Assessment & Plan (05/16/2023 6:02 AM CDT): - A1c 9.3 on 05/09/23 - Home regimen: Metformin 1000 BID and Jardiance 10. Now that awaiting rehab bed, home oral meds restarted. - Endocrine-DM assisting with management: Has had difficulty with hypoglycemia this admission - Nutrition + DM RN Educator consult - Stepan MCCALLD Assessment & Plan (01/18/2023 10:32 PM CDT): Recent A1c 5.7, Accu-Cheks well controlled. Continue Jardiance, metformin Assessment & Plan (01/16/2023 4:40 PM CDT): Reviewed hosp lab to include A1c 5.7, cbc, cmp Cont metformin, gabapentin, jardiance Assessment & Plan (01/13/2023 12:28 PM CDT): Well controlled type 2 diabetes, last A1c 5.7%, likely in the setting of failure to thrive and multiple comorbid issues -Holding home metformin -Continue Jardiance 10mg daily -Holding SSI while NPO -Accuchecks -Carb consistent diet Assessment & Plan (01/12/2023 11:55 AM CDT): Well controlled type 2 diabetes, last A1c 5.7%, likely in the setting of failure to thrive and multiple comorbid issues -Holding home metformin -Continue Jardiance 10mg daily -Holding SSI while NPO -Accuchecks -Carb consistent diet Assessment & Plan (01/11/2023 10:34 AM CDT): Well controlled type 2 diabetes, last A1c 5.7%, likely in the setting of failure to thrive and multiple comorbid issues -Holding home metformin -Continue Jardiance 10mg daily -Holding SSI while NPO -Accuchecks -Carb consistent diet Assessment & Plan (01/10/2023 1:51 PM CDT): Well controlled type 2 diabetes, last A1c 5.7%, likely in the setting of failure to thrive and multiple comorbid issues -Holding home metformin -Continue Jardiance 10mg daily -Continue SSI -Accuchecks -Carb consistent diet Assessment & Plan (01/09/2023 10:35 AM CDT): Well controlled type 2 diabetes, last A1c 5.7%, likely in the setting of failure to thrive and multiple comorbid issues -Holding home metformin -Continue Jardiance 10mg daily -Continue SSI -Accuchecks -Carb consistent diet Assessment & Plan (01/08/2023 10:34 AM CDT): Well controlled type 2 diabetes, last A1c 5.7%, likely in the setting of failure to thrive and multiple comorbid issues -Holding home metformin -Continue Jardiance 10mg daily -Continue SSI -Accuchecks -Carb consistent diet Assessment & Plan (01/07/2023 6:24 PM CDT): Well controlled type 2 diabetes, last A1c 5.7%, likely in the setting of failure to thrive and multiple comorbid issues -Holding home metformin -Continue Jardiance 10mg daily -Continue SSI -Accuchecks -Carb consistent diet Assessment & Plan (01/03/2023 3:04 PM CDT): Well controlled type 2 diabetes, last A1c 5.7%, likely in the setting of failure to thrive and multiple comorbid issues -holding metformin -continue Jardiance Reviewed current blood sugars and stable -SSI, POC glucose QID Assessment & Plan (10/19/2022 1:12 PM CDT): A1C trending up, most recent 8.5 Suspect complicated by his several comorbid conditions Discussed lifestyle modification and diet modification, pt prefers changing diet to starting new medication Given his chronic illness okay with allowing for higher A1C goal - Cont metformin and jardiance Assessment & Plan (03/12/2020 4:25 PM CDT): - continue metformin 1g BID Assessment & Plan (02/16/2020 12:41 PM CDT): -POC A1c 6.6% in clinic today -foot exam w/ signfiicant neurop[athy today, 3/5 on the R and 2/5 on the L s/p L pinky toe amputation. Uses shoes -D/c ramipril today given symptomatic hypotension, but would recheck micral w/ next UDS and consider restarting. may be able to tolerate low dose ACEi when on lower doses of narcotics and would benefit given h/o albuminuria and CAD Assessment & Plan (02/21/2019 9:36 AM CDT): Measures his blood sugar twice a day and they are 130s-200s including in the AM. Most recent A1c still slightly above goal, no changes to insulin regimen made. -Given plans for surgery in the near future and potentially improve wound healing will increase regimen to 28u long acting. Continue 6u TID short acting -repeat A1c in 2 months -advised to stop drinking [employer] Assessment & Plan (12/20/2018 11:56 AM CDT): BG remains above goal -increase Basaglar from 24 to 26U qHS -increase lispro from 7 to 8 U TIDAC -will need A1c checked at next visit Assessment & Plan (10/26/2018 8:21 AM CDT): Fasting BG remains elevated and his diet could still use improvement -increase Lantus from 20 to 24 units -increase lispro from 6 to 7U TIDAC -A1c today has improved to 8.0% from 9% at last visit -continue metformin 1000 mg BID -recommended further dietary changes, including eliminating regular soda intake Assessment & Plan (08/09/2018 1:50 PM REMEDIAL TEACHER): -continue current regimen -instructed pt to continue to hold mealtime insulin if he is not going to eat a full meal 2/2 his abdominal pain -bilateral feet with significant sensory and proprioceptive neuropathy and calluses. Will write for diabetic shoes Assessment & Plan (07/13/2018 5:01 PM REMEDIAL TEACHER): Diabetes is improving with treatment. Continue current treatment regimen. Reminded to bring in blood sugar diary at next visit. Dietary recommendations for ADA diet. Regular aerobic exercise. Discussed ways to avoid symptomatic hypoglycemia. Discussed foot care. Diabetes will be reassessed at next visit. Assessment & Plan (04/06/2018 2:14 PM CDT): A1c today down to 9.2%. Only 2 hypoglycemic episodes last week in the setting of vacationing and inconsistent food intake. Still drinking 3 32 oz sodas daily -patient willing to stop regular soda intake and switch to diet -continue Lantus 20 and lispro 6U TIDAC. Stressed that he should be very careful about his BG when he stops his sugar. Instructed to call the clinic if he becomes hypoglycemic at that time -continue metformin 1000 mg BID -referral to environmental educator Assessment & Plan (01/15/2018 12:14 PM CDT): Changed from insulin 70/30 mix 50U BID to Lantus 40U qHS and lispro 13U TIDAC at last visit. -A1c today 9.6% -Having significant hypoglycemic episodes on this regimen with lows in the 50s. -reduced Lantus to 20U qHS and lispro to 6U TIDAC -instructed patient to call clinic if he is still having lows -continue metformin 1000 mg BID Essential hypertension 01/02/2017 Overview (12/20/2018): On ramipril 5 Stopped imdur 10/2018/ lightheadedness Assessment & Plan (03/03/2025 12:44 PM CDT): Well controlled. Continue carvedilol. Assessment & Plan (02/12/2024 3:33 PM CDT): Well controlled. Continue carvedilol. Assessment & Plan (01/18/2023 10:29 PM CDT): Blood pressure remains marginal, we will discontinue spironolactone as patient does not appear fluid overloaded. We will continue Coreg, Lasix, low-dose lisinopril. We will need to follow up closely with Cardiology and PCP for further dosing adjustments if needed Assessment & Plan (01/17/2023 9:42 PM CDT): Blood pressure is marginal at times, patient on multidrug regimen. Added hold parameters to lisinopril, spironolactone. If remains consistently low will need to consider discontinuing spironolactone. Continue Coreg, Lasix Assessment & Plan (01/16/2023 4:38 PM CDT): Cont coreg, lisinopril, aldactone Assessment & Plan (03/12/2020 4:21 PM CDT): - continue ramipril Assessment & Plan (04/23/2019 10:22 AM CDT): Slightly hypotensive today, however asymptomatic. Likely related to recent surgery and/or dehydration. No other systemic signs or symptoms of infection. Right knee has some expected postoperative pain but no other signs or symptoms of septic arthritis. Advised patient that if the right knee were to become more swollen, painful or if he were to experience any systemic signs or symptoms including fevers, chills, night sweats, or palpitations or worsening hypotension for which she will check with a blood pressure cuff at home that he should go to the ED. Otherwise, advised patient to drink more water and monitor. - continue ramipril, as patient already took this morning. -advised patient if he remains hypotensive below 110 SBP, can hold for 1-2 days. Assessment & Plan (02/21/2019 11:38 AM CDT): Cont current medications. BP slightly elevated today but previously well controlled and in significant pain from his knee. Assessment & Plan (12/20/2018 11:54 AM CDT): BP controlled at 130/58 on ramipril alone -continue current regimen Assessment & Plan (11/22/2018 10:06 AM CDT): BP has been at goal for multiple visits. Usually he takes his medications before his visit, but today he was in a azar and didn't, but BP is at goal. He mentioned some mid-day lightheadedness. His BP meds may be at peak effect at the same time, causing his LH if his BP is lower than his usual SBP ~130s. He agreed to record a BID or TID BP log, once in AM before meds, once mid-day when lightheaded, again later when feeling well. He will touchbase with me or PCP over the phone in 1-2 weeks and we can adjust his medication doses or timing/schedule as needed. Assessment & Plan (10/26/2018 8:24 AM CDT): BP well controlled today -continue current regimen Assessment & Plan (08/09/2018 1:46 PM REMEDIAL TEACHER): BP 120/65 on manual recheck -continue current regimen -instructed patient to hold his ramipril if he experiences any more orthostatic symptoms, especially if he is not eating/drinking well Assessment & Plan (07/13/2018 5:00 PM REMEDIAL TEACHER): Hypertension is improving with treatment. Weight loss. Regular aerobic exercise. Continue current medications. Blood pressure will be reassessed at the next regular appointment. Assessment & Plan (01/15/2018 12:09 PM CDT): BP stable. Will continue to reassess with each visit -continue current regimen Peripheral arterial disease (CMS/HCC) 08/23/2016 Overview (07/07/2023): S/p L AKA with vascular surgery for PAD 04/2023 Post-operative course complicated by severe phantom limb pain, neuropathy, and excarbation of chronic pain Following with vascular surgery as an outpatient Scheduled to see Pain Management for additional evaluation of acute on chronic limb pain Current meds: ASA 81, Atorvastatin 80, Xarelto Assessment & Plan (03/03/2025 12:42 PM CDT): Status post left AKA. Continue ASA and atorvastatin. Following with vascular surgery. Discussed smoking cessation. Add Repatha for optimal cholesterol control. Assessment & Plan (02/12/2024 3:30 PM CDT): Status post left AKA. Continue ASA and atorvastatin. Following with vascular surgery. Discussed smoking cessation. Assessment & Plan (10/06/2023 9:33 AM REMEDIAL TEACHER): Received prosthetic, working on final fitting Following with vascular surgery Assessment & Plan (07/07/2023 11:25 AM REMEDIAL TEACHER): - Follow-up with Vascular surgery schedule in two months - Pt working on fu with pain management - Initiation of chronic narcotics as elsewhere - Will work on obtaining approval for a prosthesis - Cont medications as prescribed, no changes at this time Assessment & Plan (06/19/2023 12:54 PM REMEDIAL TEACHER): - Saw Vascular surg 06/05: working on getting fitted for prosthetic leg. Planning for ROV after 3 months with right lower extremity arterial Doppler - AmpuShield (post-operative limb protector) custom molded and applied to amputation stump; tolerated well. Keep wound clean and dry at all times. Apply an ABD pad or dry gauze to stump and wrap with Kerlex. Do this daily and PRN if saturated. Keep stump protector on 24 hours a day, unless changing dressing or if BKA and participating in physical therapy. A [facility] rep will visit the patient and be taking pictures of the stump site to send to the surgeon. - cont asa, statin, xarelto Assessment & Plan (01/18/2023 10:29 PM CDT): Stable, continue aspirin, statin, blood pressure control. Follow up with vascular surgery as an outpatient. Assessment & Plan (01/16/2023 4:36 PM CDT): Cont asa, lipitor Assessment & Plan (01/13/2023 12:27 PM CDT): Peripheral artery disease s/p left popliteal bypass and right SFA stenting, carotid stenosis s/p right ICA stenting -No limb ischemia signs/symptoms -Continue risk factor modification -Continue aspirin and statin Assessment & Plan (01/12/2023 11:54 AM CDT): Peripheral artery disease s/p left popliteal bypass and right SFA stenting, carotid stenosis s/p right ICA stenting -No limb ischemia signs/symptoms -Continue risk factor modification -Continue aspirin and statin Assessment & Plan (01/11/2023 10:29 AM CDT): Peripheral artery disease s/p left popliteal bypass and right SFA stenting, carotid stenosis s/p right ICA stenting -No limb ischemia signs/symptoms -Continue risk factor modification -Continue aspirin and statin Assessment & Plan (01/10/2023 1:48 PM CDT): Peripheral artery disease s/p left popliteal bypass and right SFA stenting, carotid stenosis s/p right ICA stenting -No limb ischemia sxs -Continue risk factor modification -Continue aspirin and statin Assessment & Plan (01/09/2023 10:35 AM CDT): Peripheral artery disease s/p left popliteal bypass and right SFA stenting, carotid stenosis s/p right ICA stenting -No limb ischemia sxs -Continue risk factor modification -Continue aspirin and statin Assessment & Plan (01/08/2023 10:34 AM CDT): Peripheral artery disease s/p left popliteal bypass and right SFA stenting, carotid stenosis s/p right ICA stenting -No limb ischemia sxs -Continue risk factor modification -Continue aspirin and statin Assessment & Plan (01/07/2023 6:21 PM CDT): Peripheral artery disease s/p left popliteal bypass and right SFA stenting, carotid stenosis s/p right ICA stenting -No limb ischemia sxs -Continue risk factor modification -Continue aspirin and statin Assessment & Plan (01/02/2023 9:27 PM CDT): Peripheral artery disease status post left popliteal bypass and right SFA stenting, carotid stenosis status post R ICA stenting. No limb ischemia sxs -risk factor modification -ASA, statin Vertigo 04/06/2016 Overview (01/15/2018): Likely BPPV. +[place] at 12/2015 clinic visit. Performs Pedro manuever at home with attentuation of his symptoms. History of deep venous thrombosis 02/12/2016 Overview (01/15/2018): Acute DVT diagnosed 01/2016. Started on Xarelto -h/o LLE DVT in past, diagnosed 06/2014, extending to the left common femoral, s/p 6 months of AC -Continue Xarelto 20 mg PO Qd indefinitely as this is his 2nd unprovoked DVT Assessment & Plan (03/12/2020 4:21 PM CDT): Unprovoked DVT x2 in 2013 and 2015 -Continue xarelto 20mg daily Assessment & Plan (12/20/2018 11:57 AM CDT): Planning on R knee replacement 01/23/19 with instruction to hold his Xarelto 7 days before his surgery per his surgeon. -recommend bridging with lovenox 80 mg SQ Q12 hrs starting 24 hours after his last Xarelto dose with his last dose 24 hours prior to his surgery Chronic pain syndrome 07/20/2015 Overview (07/31/2024): 2/2 cervical radiculopathy, R shoulder impingement, LBP, diabetic neuropathy, L AKA 04/2023 Diagnosis: cervical spondylosis, cervical and lumbar radiculopathy, multiple lumbar diskectomies subsequent bulging disks. Supporting studies: Cervical MRI (02/2013) shows C5-C7 mild degenerative disease. EMG consistent with electrodiagnostic findings of cervical radiculopathy. Has received shoulder injections of impingement syndrome. S/p diskectomies c/b lumbar radiculopathy and sciatica (parasthesias down leg to foot). Current pain regimen: tapering from oxycodone 5mg BID prn (last filled 06/04/24) to oxycodone 5 mg daily prn (last filled 07/04) to none due to pain management policy violations x2 despite warnings Adjunct pain medications: gabapentin 300 TID, venlafaxine 150 Prior pain medications: oxycodone 5 mg BID prn; hydrocodone/APAP ([id number], d/c'd due to increasing requirement), amitriptyline d/c'd due to possible contribution to bradycardia, methadone, morphine ER (lethargy) Pain agreement violations/concerning behavior: --escalation of pain med requirement on vicodin, prior history of prescription abuse, inadequate diabetes control --hx of substance abuse with Rx drugs- Frequenlty attends NA meetings and has not abused for close to 4-5 years. Had been receiving Hydrocodone/APAP from the medicine clinic for more than 4 years with appropriate UDS and no early prescription requests. --given oxycodone 5 mg #20 to patient on 08/04/18 for acute pancreatitis by PCP (this is NOT a violation) --filled tramadol Rx given by his orthopedic surgeon's office 10/18/18. Was not aware this was a violation No violations since 2018 - Violation (02/12/24): UDS + for cannabinoids on 02/11 and negative for opiates (appropriate as patient was out); patient provided warning - Violation (05/31/24): UDS + for cannabinoids again on 05/31/24; patient informed that his oxycodone would be tapered at his next refill and that the clinic can no longer provide patient with his oxycodone prescription following taper Assessment & Plan (07/31/2024 10:06 PM REMEDIAL TEACHER): Patient reports worsening of his chronic pain since tapering of opioids and increased reliance on MJ for pain management. PLAN: - Encouraged patient to schedule with pain management - Increase gabapentin from 300 to 600 TID Assessment & Plan (06/02/2024 1:56 PM REMEDIAL TEACHER): PLAN: - Pain management profile performed today - Continue current pain regimen Assessment & Plan (04/12/2024 11:11 PM CDT): Today, patient was warned regarding concurrent use of cannabinoids and opioids being against clinic pain policy. Patient expressed understanding and will cease marijuana use. PLAN: - Continue current pain regimen - Patient provided paper copy of referral to physical therapy to bring to PT of choice Assessment & Plan (01/11/2024 5:46 PM CDT): Last UDS in 2022, but pt states he does not have to urinate today. He has cardiology appointment on 02/11. He likely will have 1 refill date prior to then, which is okay per Dr. Dooley. However, for subsequent dispenses, he needs to have UDS completed and appropriate by the 02/11 appointment. He may come to the lab before this appointment if he desires. Assessment & Plan (10/06/2023 11:57 AM REMEDIAL TEACHER): Cont chronic narcotics, recently refilled at TEAM visit Taper venlafaxine like described above Assessment & Plan (07/07/2023 11:48 AM REMEDIAL TEACHER): - Plan to restart chronic Oxycodone 5 mg BID PRN (#60 tablets) start date 07/07 - Informed the pt and his that our clinic is unable to provide any further fentanyl patch requests - This will be a new chronic narcotic prescription, this is the same MME as his morphine that he was on prior to his operation - Pt is to follow/establish with pain management to help with multimodal pain control - Again discussed the side effects of these medications and how he is on several serotonergic medicines which could affect his cognition, energy, and mental status etc. Pt understands and is adamant about continuing his regimen as is - Discussed the importance of regular tylenol use for multi-modal pain control Assessment & Plan (06/19/2023 12:59 PM REMEDIAL TEACHER): Filled #10 patches on 06/15 (initially ordered by vascular surgery but required prior auth), for 30 day supply. Oxycodone 5 mg tablet q6h PRN (#60 tablets given at 06/05 vascular surgery appointment) - plan to discontinue fentanyl patch on ROV in 1 month, if patient is still requiring patch for pain regimen will discuss with vascular surgeon about refills to get him to his pain visit. - has been taking oxy 5-10mg 2 times per day, occasionally 3 times per day. Usually just taking 5mg BID and this controls his pain well. -pain mgmt appt 07/06 -ROV w PCP 07/07 Assessment & Plan (06/06/2023 2:43 PM REMEDIAL TEACHER): In setting of recent AKA / post-op pain, currently being managed by vascular surgery, who is continuing fentanyl patches + oxycodone at present. Continue without morphine at this time, though anticipate transition back to it in the future. Assessment & Plan (05/15/2023 9:26 AM CDT): Acute on chronic pain. Chronic pain managed by [facility] - Home regimen Morphine ER 15mg daily, gabapentin 300 TID, venlafaxine 150 - now with acute post op pain - Pain management consulted for uncontrolled pain on current regimen. Opioids: Continue morphine ER 15mg BID Continue oxycodone 10mg q4h PRN Continue hydromorphone 0.2mg q4h PRN for breakthrough pain only b. Adjuvants: Continue pregabalin 100mg BID Continue APAP 1g q6h scheduled - BM regimen Assessment & Plan (02/21/2023 3:21 PM CDT): Patient has a long history of chronic pain for which he has been on chronic narcotics in this clinic. Was stopped cold turkey after a July 2022 hospitalization. Since then has been having significant impedance of his ADLs due to chronic pain. Had extensive conversation with him today about use of morphine and its risks and possible benefits for him given his several comorbidities. Had a discussion with him regarding his mortality and lifespan given his I LD, CAD, CHF, and anemia. - will restart chronic morphine 15 mg ER once daily #30 tablets - next fill date 03/24/2023 - needs UDS at next visit in April 2023 Assessment & Plan (01/25/2023 3:26 PM CDT): Patient had home morphine stopped during hospitalization secondary to delirium Discussed the risks of over prescription and polypharmacy, we will elect to defer additional narcotics at this time Can consider spot doses of morphine as an outpatient for refractory episodes of pain, patient is agreeable with this plan. Assessment & Plan (01/18/2023 10:35 PM CDT): Patient has been weaned off all narcotics, pain seems to be well controlled at the present time with only reduced dose gabapentin and venlafaxine. Can follow up as an outpatient with pain management. Assessment & Plan (01/13/2023 12:29 PM CDT): Chronic pain followed by primary care clinic on chronic opiate therapy. -Home regimen: morphine ER 10 mg daily, gabapentin, venlafaxine -Holding home morphine as it may be contributing to his confusion/delirium -Continue adjunct pain medications Assessment & Plan (01/12/2023 11:56 AM CDT): Chronic pain followed by primary care clinic on chronic opiate therapy. -Home regimen: morphine ER 10 mg daily, gabapentin, venlafaxine -Holding home morphine as it may be contributing to his confusion/delirium -Continue adjunct pain medications Assessment & Plan (01/11/2023 10:37 AM CDT): Chronic pain followed by primary care clinic on chronic opiate therapy. -Home regimen: morphine ER 10 mg daily, gabapentin, venlafaxine -Holding home morphine as it may be contributing to his confusion/delirium -Continue adjunct pain medications Assessment & Plan (01/10/2023 1:51 PM CDT): Chronic pain followed by primary care clinic on chronic opiate therapy. -Home regimen: morphine ER 10 mg daily, gabapentin, venlafaxine -Holding home morphine as it may be contributing to his confusion/delirium -Continue adjunct pain medications Assessment & Plan (01/09/2023 10:35 AM CDT): Chronic pain followed by primary care clinic on chronic opiate therapy. -Home regimen: morphine ER 10 mg daily, gabapentin, venlafaxine -Holding home morphine as it may be contributing to his confusion/delirium -Continue adjunct pain medications Assessment & Plan (01/08/2023 10:33 AM CDT): Chronic pain followed by primary care clinic on chronic opiate therapy. -Home regimen: morphine ER 10 mg daily, gabapentin, venlafaxine -Holding home morphine as it may be contributing to his confusion/delirium -Continue adjunct pain medications Assessment & Plan (01/07/2023 6:26 PM CDT): Chronic pain followed by primary care clinic on chronic opiate therapy. -Home regimen: morphine ER 10 mg daily, gabapentin, venlafaxine -Holding home morphine as it may be contributing to his confusion/delirium -Continue adjunct pain medications Assessment & Plan (01/02/2023 10:00 PM CDT): Chronic pain followed by primary care clinic on chronic opiate therapy. Home regimen: morphine ER 10 mg daily, gabapentin, venlafaxine -holding home morphine in setting of poor mentation -continue adjunct pain medications Assessment & Plan (12/14/2022 1:11 PM CDT): Unable to fill 10 mg capsule due to insurance and pharmacy, switch prescription to 15 mg ER tablet once daily, #30 tablet sent 12/[address] [facility] in [place]. Assessment & Plan (12/13/2022 5:09 PM CDT): - Referral for pain management placed today for eval of additional interventions - Pt has chronically been on narcotics for >10 years. During admission this winter he was rapidly weaned off his stable methadone dose and experienced significant withdrawal symptoms - Has been off narcotics from July -> November 2022 and had significant worsening of symptoms affecting his quality of life and limiting his activity - Sent #30 Morphine ER 10 mg tablets, start date 12/13 - Pt on alprazolam 0.5 mg BID PRN, has been taking for last several months, discussed that he cannot be on both benzodiazepines and opioids, will taper over the next 30 days (1 tab daily PRN for 10 days, 0.25 mg daily PRN for 10 days, 0.25 mg every 48h PRN for 10 days) Assessment & Plan (01/20/2022 5:25 PM CDT): UDS obtained today 01/20/22. Assessment & Plan (03/12/2020 4:20 PM CDT): - decrease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 hospital (patient calling family in the middle of the night, confused as to where he is etc), he likely has baseline dementia (that has never formally been assessed according to his family) which is worsened here in the unfamiliar hospital environment, suspect hospital delirium given negative workup for stroke and infection thus far this admission -Home morphine held on admission due to confusion -Head CT negative for acute intracranial abnormalities -Afebrile, no leukocytosis, lactate WNL -Ammonia level WNL -Full RVP negative -ABG: pH-7.41, PCO2-61, P02-222, 02-100, HCO3-40 -CXR with pleural effusions s/p thoracentesis -UA did not meet reflex requirements -blood cultures NGTD -Geriatrics consulted for formal cognitive assessment -Sleep hygiene -Delirium precautions Assessment & Plan (01/08/2023 10:34 AM CDT): According to family patient has baseline confusion at home which is similar but much worse here in the hospital (patient calling family in the middle of the night, confused as to where he is etc), he likely has baseline dementia (that has never formally been assessed according to his family) which is worsened here in the unfamiliar hospital environment, suspect hospital delirium given negative workup for stroke and infection thus far this admission -Home morphine held on admission due to confusion -Head CT negative for acute intracranial abnormalities -Afebrile, no leukocytosis, lactate WNL -Ammonia level WNL -Full RVP negative -ABG: pH-7.41, PCO2-61, P02-222, 02-100, HCO3-40 -CXR with pleural effusions s/p thoracentesis -UA did not meet reflex requirements -blood cultures NGTD -Consult geriatrics for cognitive assessment (Monday) -Sleep hygiene -Delirium precautions Assessment & Plan (01/07/2023 7:15 PM CDT): According to family patient has baseline confusion at home which is similar but much worse here in the hospital (patient calling family in the middle of the night, confused as to where he is etc), he likely has baseline dementia (that has never formally been assessed according to his family) which is worsened here in the unfamiliar hospital environment, suspect hospital delirium given negative workup for stroke and infection thus far this admission -Home morphine held on admission due to confusion -Head CT negative for acute intracranial abnormalities -Afebrile, no leukocytosis, lactate WNL -Ammonia level WNL -Full RVP negative -ABG: pH-7.41, PCO2-61, P02-222, 02-100, HCO3-40 -CXR with pleural effusions s/p thoracentesis yesterday -UA did not meet reflex requirements -Send blood cultures with AM labs to complete infectious workup -Consult geriatrics for cognitive assessment -Sleep hygiene -Delirium precautions Atrial fibrillation 01/02/2023 01/19/20 23 Assessment & Plan (01/16/2023 4:39 PM CDT): Cont xarelto as ordered by hospitalist Assessment & Plan (01/13/2023 12:30 PM CDT): -Remains rate controlled -Holding home Xarelto in setting of anemia -Continue carvedilol 6.25mg BID -Telemetry monitoring Assessment & Plan (01/12/2023 11:57 AM CDT): -Remains rate controlled -Holding home Xarelto in setting of anemia -Continue carvedilol 6.25mg BID -Telemetry monitoring Assessment & Plan (01/11/2023 10:38 AM CDT): -Remains rate controlled -Holding home Xarelto in setting of anemia -Continue carvedilol 6.25mg BID -Telemetry monitoring Assessment & Plan (01/10/2023 2:06 PM CDT): -remains rate controlled -Holding home Xarelto in setting of anemia -Continue carvedilol 6.25mg BID -Telemetry monitoring Assessment & Plan (01/09/2023 10:40 AM CDT): -remains rate controlled -Holding home Xarelto in setting of anemia -Continue carvedilol 6.25mg BID -Telemetry monitoring Assessment & Plan (01/08/2023 10:19 AM CDT): Currently rate controlled -Holding home Xarelto in setting of anemia -Continue carvedilol 6.25mg BID -Telemetry monitoring Assessment & Plan (01/07/2023 6:29 PM CDT): -Currently rate controlled -Holding home Xarelto in setting of anemia -Continue carvedilol 6.25mg BID -Telemetry monitoring Assessment & Plan (01/04/2023 12:11 PM CDT): Holding Xarelto in setting of anemia. Unclear etiology, but markedly elevated risk for stroke. - Will monitor for need for restarting heparin drip Iron deficiency 12/27/2022 07/07/2023 Overview (12/27/2022): See anemia. Pleural effusion 12/27/2022 04/10/2024 Assessment & Plan (01/16/2023 4:42 PM CDT): Disc w , order for cxr in 1wk Reviewed ds w attn to thoracentesis Assessment & Plan (01/13/2023 12:27 PM CDT): -S/p Left thoracentesis on 12/30 with 930 mL removed and again on 01/06 with 1,050 mL removed -Exam stable today--follow clinically and continue CHF optimization -Follow CXRs Assessment & Plan (01/12/2023 11:54 AM CDT): -S/p Left thoracentesis on 12/30 with 930 mL removed and again on 01/06 with 1,050 mL removed -Exam stable today--follow clinically and continue CHF optimization -Follow CXRs Assessment & Plan (01/11/2023 10:25 AM CDT): -S/p Left thoracentesis on 12/30 with 930 mL removed and again on 01/06 with 1,050 mL removed -Exam stable today--follow clinically and continue CHF optimization -Follow CXRs Assessment & Plan (01/10/2023 1:48 PM CDT): -S/p Left thoracentesis on 12/30 with 930 mL removed and again yesterday (01/06) with 1,050 mL removed -exam stable today--follow clinically and continue CHF optimization -Follow CXRs Assessment & Plan (01/09/2023 10:40 AM CDT): -S/p Left thoracentesis on 12/30 with 930 mL removed and again yesterday (01/06) with 1,050 mL removed -exam stable today--follow clinically and continue CHF optimization -Follow CXRs Assessment & Plan (01/08/2023 10:34 AM CDT): -S/p Left thoracentesis on 12/30 with 930 mL removed and again yesterday (01/06) with 1,050 mL removed -Continue diuresis -Follow CXRs Assessment & Plan (01/07/2023 6:44 PM CDT): -S/p Left thoracentesis on 12/30 with 930 mL removed and again yesterday (01/06) with 1,050 mL removed -Continue diuresis -Follow CXRs Assessment & Plan (01/04/2023 11:55 AM CDT): Follows with pulmonology for ILD, NSIP pattern. Status post L thoracentesis on 12/30 with 930 cc drained now with recurrence -will require repeat thoracentesis once INR is less than 2 -trial of diuresis but will most likely hold diuresis today. Goals of care, counseling/discussion 10/19/2022 04/10/2024 Assessment & Plan (05/12/2023 9:33 AM CDT): - Pt has wishes to be DNR/DNI, pt's is his POA Assessment & Plan (10/19/2022 1:15 PM CDT): Had extensive conversation today about his many critical illness. He again confirmed that he wants to remain DNR/DNI and wants to avoid any unnecessary hospitalizations or ICU stays if possible. He has begun following with palliative care as an outpatient which has been helpful. He has a significant amount of anxiety and pain related to his condition, during a 07/2022 hospitalization he withdrew and weaned himself off methadone and was started on xanax for his underlying anxiety. Discussed with him how benzo's are not the preferred agent for treating anxiety and can worsen his breathing. He understands that and desires to remain on his current regimen. - Cont to follow-up with Palliative care - Cont xanax as below Shortness of breath 01/20/2022 12/14/19 Overview (01/20/2022): As described in previous notes, likely multifactorial: cardiac (CAD, AFib, LVH), pulm (ILD +/- pulm edema), and hematologic (anemia). 01/20/22 pt was back in AFib without RVR. - Will message cardiology to see if they would like to follow up with him sooner or retry DCCV. - Pulm f/u scheduled in 01/2022 - Continue home O2 - Albuterol PRN Hip pain 01/01/2021 08/25/2021 Hx of colonic polyps 06/09/2020 023 Overview (06/09/2020): Added automatically from request for surgery [id number] Other dysphagia 09/20/2019 08/25/2021 Leukocytosis 05/20/2019 08/07/2022 Lateral epicondylitis 05/20/20192018 Acute hypoxic respiratory failure 01/22/2019 04/10/2024 Overview (10/19/2022): Likely 2/2 smoking (DIP/LCX) vs less likely HP or asbestosis. Mild septal thickening, mid-upper lobe predominant pleural based, unclear if centrilobular or not. Recent CT w/ evidence of pulmonary edema Current meds: pred 5, lasix 20 2L O2 at baseline Assessment & Plan (01/13/2023 12:37 PM CDT): Followed by pulmonology for ILD, NSIP pattern, intolerant to MMF, currently low chronic low dose steroids. Complicated by acute on chronic hypoxic respiratory failure requiring 6L oxygen on arrival to the floor -ABG: pH-7.41, PCO2-61, P02-222, 02-100, HCO3-40 -CXR 01/06 with moderate left pleural effusion and small right pleural effusion -S/p Left thoracentesis on 12/30 with 930 mL removed and again yesterday (01/06) with 1,050 mL removed -CXR 01/13 with interval decreased size of small left pleural effusion and unchanged trace right pleural effusion-stable -Appears comfortable, will continue to wean to home 02 back to 2L -Continue prednisone 5 mg daily Assessment & Plan (01/13/2023 12:31 PM CDT): Followed by pulmonology for ILD, NSIP pattern, intolerant to MMF, currently low chronic low dose steroids. Complicated by acute on chronic hypoxic respiratory failure requiring 6L oxygen on arrival to the floor -ABG: pH-7.41, PCO2-61, P02-222, 02-100, HCO3-40 -CXR 01/06 with moderate left pleural effusion and small right pleural effusion -S/p Left thoracentesis on 12/30 with 930 mL removed and again yesterday (01/06) with 1,050 mL removed -Appears comfortable, will continue to wean to home 02 back to 2L -Continue prednisone 5 mg daily Assessment & Plan (01/12/2023 11:59 AM CDT): Followed by pulmonology for ILD, NSIP pattern, intolerant to MMF, currently low chronic low dose steroids. Complicated by acute on chronic hypoxic respiratory failure requiring 6L oxygen on arrival to the floor -ABG: pH-7.41, PCO2-61, P02-222, 02-100, HCO3-40 -CXR 01/06 with moderate left pleural effusion and small right pleural effusion -S/p Left thoracentesis on 12/30 with 930 mL removed and again yesterday (01/06) with 1,050 mL removed -Appears comfortable, will continue to wean to home 02 back to 2L -Walking oxygen assessment ordered to assess current home oxygen needs in anticipation of discharge -Continue prednisone 5 mg daily Assessment & Plan (01/11/2023 10:39 AM CDT): Followed by pulmonology for ILD, NSIP pattern, intolerant to MMF, currently low chronic low dose steroids. Complicated by acute on chronic hypoxic respiratory failure requiring 6L oxygen on arrival to the floor -ABG: pH-7.41, PCO2-61, P02-222, 02-100, HCO3-40 -CXR 6/9 with moderate left pleural effusion and small right pleural effusion -S/p Left thoracentesis on 12/30 with 930 mL removed and again yesterday (01/06) with 1,050 mL removed -Appears comfortable, will continue to wean to home 02 back to 2L -Continue prednisone 5 mg daily Assessment & Plan (01/10/2023 2:16 PM CDT): Followed by pulmonology for ILD, NSIP pattern, intolerant to MMF, currently low chronic low dose steroids. Complicated by acute on chronic hypoxic respiratory failure requiring 6L oxygen on arrival to the floor -ABG: pH-7.41, PCO2-61, P02-222, 02-100, HCO3-40 -CXR 6/9 with moderate left pleural effusion and small right pleural effusion -S/p Left thoracentesis on 12/30 with 930 mL removed and again yesterday (01/06) with 1,050 mL removed -Appears comfortable, will continue to wean to home 02 back to 2L -Continue prednisone 5 mg daily Assessment & Plan (01/09/2023 10:36 AM CDT): Followed by pulmonology for ILD, NSIP pattern, intolerant to MMF, currently low chronic low dose steroids. Complicated by acute on chronic hypoxic respiratory failure requiring 6L oxygen on arrival to the floor -ABG: pH-7.41, PCO2-61, P02-222, 02-100, HCO3-40 -CXR 6/9 with moderate left pleural effusion and small right pleural effusion -S/p Left thoracentesis on 12/30 with 930 mL removed and again yesterday (01/06) with 1,050 mL removed -Continue diuresis -Continue prednisone 5 mg daily -supplemental oxygen weaned off and SaO2 stable on room air Assessment & Plan (01/08/2023 10:14 AM CDT): Followed by pulmonology for ILD, NSIP pattern, intolerant to MMF, currently low chronic low dose steroids. Complicated by acute on chronic hypoxic respiratory failure requiring 6L oxygen on arrival to the floor -ABG: pH-7.41, PCO2-61, P02-222, 02-100, HCO3-40 -CXR 01/06 with moderate left pleural effusion and small right pleural effusion -S/p Left thoracentesis on 12/30 with 930 mL removed and again yesterday (01/06) with 1,050 mL removed -Continue diuresis -Continue prednisone 5 mg daily -Continue supplemental O2 Assessment & Plan (01/07/2023 7:04 PM CDT): Followed by pulmonology for ILD, NSIP pattern, intolerant to MMF, currently low chronic low dose steroids. Complicated by acute on chronic hypoxic respiratory failure requiring 6L oxygen on arrival to the floor -ABG: pH-7.41, PCO2-61, P02-222, 02-100, HCO3-40 -CXR 01/06 with moderate left pleural effusion and small right pleural effusion -S/p Left thoracentesis on 12/30 with 930 mL removed and again yesterday (01/06) with 1,050 mL removed -Continue diuresis -Continue prednisone 5 mg daily -Continue supplemental O2 Assessment & Plan (01/04/2023 12:12 PM CDT): Followed by pulmonology for ILD, NSIP pattern, intolerant to MMF, currently low chronic low dose steroids. Complicated by acute on chronic hypoxic respiratory failure requiring 6L oxygen on arrival to the floor -continue prednisone 5 mg daily -continue supplemental O2 -lasix 80 mg IV BID -repeat thoracentesis once INR in theraputic range for procedure ( currently over 6 on admission ) Assessment & Plan (12/13/2022 10:41 AM CDT): At baseline, no concern for exacerbation or increased respiratory distress Has f/u with Pulmonology later this month Assessment & Plan (10/19/2022 1:05 PM CDT): Following with Dr. Contreras at [facility] Pulm, f/u scheduled 11/2022 Cont current prednisone 5 mg No signs of volume overload, continue lasix 20 daily Has been on stable dose of lasix, recheck labs at follow-up. Has close f/u scheduled with puljignesh and cards later this spring. Assessment & Plan (03/12/2020 4:23 PM CDT): Patient currently without any respiratory symptoms Assessment & Plan (04/23/2019 10:20 AM CDT): Patient has I LD found on last CT. He was supposed to get a high-resolution CT and PFTs but has not filled this. -advised patient to schedule his imaging Assessment & Plan (02/21/2019 9:33 AM CDT): HRCT and PFTs not done, patient endorsed having a cough at the time and didn't think he would be able to do well -instructed to reschedule those appointments -Not interested in quitting smoking at this time Acute pain of right knee 09/03/2018 Overview (10/26/2018): Pain in R knee and garcia with some palpable nodularity. H/o R knee replacement 12 years ago. XR 08/2018 with normal alignment and new osteolysis along the right medial tibial plateau that can be seen with polyethylene liner wear Orthopedic surgeon is Dr. Hong at [facility] in [place] Assessment & Plan (12/20/2018 11:59 AM CDT): Currently planning on R knee replacement 01/23/19. Assessment & Plan (11/22/2018 10:04 AM CDT): Pain is stable. No si/sx of infection or malignancy on my exam, but OSH MD obtained CT and bone scan. He has appointment with that MD today. Encouraged follow-up. Assessment & Plan (10/26/2018 8:19 AM CDT): Suspect his worsening pain a combination of recently underdosing his methadone as well as nearing the end of this knee hardware lifespan. Low concern for infection given no erythema, swelling, or systemic symptoms -Infection essentially ruled out with normal ESR/CRP today -advised patient to visit his orthopedic surgeon soon for further evaluation -trial of diclofenac gel Assessment & Plan (09/03/2018 3:49 PM REMEDIAL TEACHER): -XR of R tib/fib and knee unremarkable -Pt informed of this via phone -conservative management Idiopathic acute pancreatiti s without infection or necrosis 09/01/2018 07/22/2019 Overview (09/01/2018): On 08/03/18, 2.5 weeks of epigastric pain, 10 lb weight loss Lipase 425, normal CMP CT A/P on 08/17/18 with mild fat stranding near pancreatic head and uncinate process c/w mild pancreatitis Managed at home as still able to take PO Referred to GI. Appt on 09/19/18 Assessment & Plan (09/03/2018 4:10 PM REMEDIAL TEACHER): Resolved. Has been pain free for a week. Now tolerating full diet. -has GI appointment on 09/19/18 Unintentional weight loss 01/15/2018 Overview (04/06/2018): Has been longstanding issue. Weight 212 lbs 12/2015 to 188 lbs now. Weight 212 lbs at 12/2015 clinic visit, 222lbs in 03/2016, and 203lbs 06/2016. He has had an extensive work-up from Jul to December 2015 as follows: -Abdominal MR from 11/2014 showed no discrete masses. -Chest CT from 06/2015 with no masses or suspicious nodules. -C-scope from 09/2015 unremarkable aside from 3 hyperplastic polyps. -Abdomen/Pelvis CT from 09/2015 with no suspcious masses or findings. -EGD from 11/2015 unremarkable. -CMP and TSH 12/2017 wnl. CBC with leukocytosis to 13 Assessment & Plan (04/06/2018 2:26 PM CDT): Has lost another 8 lbs since 12/2017. Could possibly relate to starting metformin a few months ago vs some early gastroparesis. He has no other concerning signs/symptoms at this time to suggest a malignancy and is up to date on his cancer screening. -repeat CBC with diff given leukocytosis today with WBC 12 and ANC 8200 with AMC 1200, which have been persistent, as well as mild anemia. No s/sx of infection. -continue to trend Assessment & Plan (01/15/2018 12:18 PM CDT): Weight in the upper 190s but stable. -send CMP, CBC, TSH -send for low dose chest CT given h/o smoking Recurrent pancreatitis 01/15/201810/05 Overview (09/03/2018): Unclear etiology. -latest attack 07/2018, mild with lipase in the 425. Did not require hospitalization. CT A/P 08/17/18 with mild fat stranding near the pancreatic head and uncinate process -admitted at OSH from 08/12-08/14/16, at which point prescribed creon supplements, [id number] TID with meals. No significant alcohol abuse or history of gallstones or hypertriglyceridemia. Family h/o pancreatic cancer in mother. Patient denies any further abdominal pain 07/28/17. -Prior work-up includes ---MRCP 06/14/10: notable for A 5 mm cystic lesion in the body of the pancreas which may represent the sequela of prior pancreatitis or may represent a side branch intraductal papillary mucinous neoplasm. --- EUS in 11/08/10: notable for - Pancreatic parenchymal abnormalities consisting of significant lobularity in the entire pancreas. There was no discrete masses noted in the visualized portions of the pancreas, although due to the significant lobularity, small lesions may be missed. Recommeded f/u with MRCP. -He saw GI clinic in November 2014 where MRI/MRCP was obtained and showed no concerning findings. Serum immunoglobulins were unremarkable, making autoimmune pancreatitis or IgG4 disease unlikely. -CT A/P (09/2015) unremarkable. -CT A/P 08/17/18 with mild fat stranding near the pancreatic head and uncinate process Encounters Date Type Department Care Team Description 07/16/2025 Telephone [facility] Cardiology [address] [facility] 8th [place] [address] [place] [address] Murali Chandra MD 07/15/2025 2:45 PM REMEDIAL TEACHER - 07/15/2025 11:59 PM REMEDIAL TEACHER Hospital Encounter [facility] Cardiac Diagnostic Lab [address] [facility] 8th [place] [address] Arterial insufficiency of lower extremity Discharge Disposition: Discharge to home or self care 07/15/2025 Telephone [facility] Medicine Surgery [address] [facility] Floor 1 [place] [id number] Koko Cintron MD 07/15/2025 Orders Only [facility] Primary Care Medicine Clinic [address] [place] [address] [address] [place] [address] Harjeet Cintron MD Hx of AKA (above knee amputation), left (HCC) (Primary Dx) 07/14/2025 2:30 PM REMEDIAL TEACHER Office Visit [facility] Medicine Surgery [address] [place] [address] 8th [place] [address] [place] [address] Koko Cintron MD Encounter for surgical aftercare following surgery on the circulatory system (Primary Dx) 07/14/2025 1:45 PM REMEDIAL TEACHER Ancillary Procedure [facility] Vascular Lab at the [address] 8th [place] [address] [place] [id number] 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 Radiology [address] [place] [id number] Acute pain of right knee Discharge Disposition: Discharge to home or self care 07/11/2025 11:40 AM REMEDIAL TEACHER Clinical Support [facility] Residents [facility] [address] [place] [address] 07/11/2025 10:45 AM REMEDIAL TEACHER Office Visit [facility] Primary Care Medicine Clinic [address] [place] [address] [address] [place] [address] Laura Bravo MD Healthcare maintenance (Primary Dx); Acute pain of right knee; Tobacco use; ILD (interstitial lung disease) ([facility]) 07/10/2025 11:00 AM REMEDIAL TEACHER Home Care Visit [address] [place] [address] Deann Galeano RN SN HOME VISIT 07/10/2025 Telephone [facility] Primary Care Medicine Clinic [address] [place] [address] [place] [id number] Harjeet Cintron MD Additional Services Or Orders (/) 07/07/2025 10:00 AM REMEDIAL TEACHER Home Care Visit [address] [place] [address] Deann Galeano RN SN HOME VISIT 07/04/2025 1:30 PM REMEDIAL TEACHER Home Care Visit [address] [place] [address] Glaze Linda SN HOME VISIT 07/02/2025 Telephone [facility] Endocrinology Metabolism and Lipid [address] [facility] 13th [place] [address] [place] [address] Marlin Hedrick RMA JANNY\ ([facility] [employer]) 07/02/2025 Telephone [facility] Medicine Endocrinology Metabolism and Lipid [address] [facility] Medicine 13th [place] [address] [place] [address] Marlin Hedrick RMA Prior Auth (Dexcom G7 Sensor and Reciever) 07/01/2025 10:00 AM REMEDIAL TEACHER Home Care Visit [address] [place] [address] Glaze, Linda SN HOME VISIT 07/01/2025 Telephone [facility] Primary Care Medicine Clinic [address] [place] [address] [address] [place] [address] Amanda Paiz, RN 07/01/2025 Home Care Visit [address] [address] [address] [place] [address] Deann Galeano RN CARE CONFERENCE 06/30/2025 Telephone [facility] Endocrinology Metabolism and Lipid [address] [facility] Floor 1, [address] [place] [phone] Carina Fair RN Prior Auth (FreeStyle Demetrius 3 Plus Sensor) 06/30/2025 Home Care Visit [address] [address] [address] [place] [address] Autumn Flynn, RN WOCN CONSULT 06/29/2025 11:00 AM REMEDIAL TEACHER Home Care Visit [address] [address] [address] [place] [address] Deann Galeano, BARTOLOME SN OASIS START OF CARE 06/29/2025 Plan of Care Documentation [address] [address] [address] [place] [address] 2025 Telephone 36 [address] [place] [address] Meghann Kitchen, [facility] 2025 Telephone [facility] Primary [facility] Medicine [facility] [address] [place] [address] Health [address] [place] [address] Amanda Paiz, RN Follow-up 2025 Telephone [facility] [address] [place] [address] [address] [place], [place] [id number] Harjeet Cintron MD Follow-up 06/20/2025 1:00 PM REMEDIAL TEACHER Lab [facility] Health [address] [place] [address] [place] [address] Arterial insufficiency of lower extremity 06/20/2025 11:15 AM REMEDIAL TEACHER Office Visit [facility] Primary [facility] Medicine Clinic [address] [facility] [address] [place] [address] Arterial insufficiency of lower extremity (Primary Dx) 06/20/2025 Telephone [facility] Endocrinology Metabolism and Lipid [address] [facility] 13th [place] [address] [place] [address] Marlin Hedrick RMA JANNY ([employer]) 06/06/2025 Nurse Triage [facility] Specialty Services [address] [place] [address] Anna Tatum RN 06/06/2025 Orders Only [facility] Medicine Surgery [address] 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 8th [place] [address] [place] [address] Koko Cintron MD 06/06/2025 Telephone [facility] Medicine Cardiology [facility] 8th [place] [address] [place] [address] Murali Chandra MD Wound 05/09/2025 12:45 PM CDT Lab [address] [address] Irritable bowel syndrome with diarrhea 05/09/2025 11:15 AM CDT Office Visit [facility] Primary Care Medicine Clinic [address] [place] [address] [address] [place] [address] Irritable bowel syndrome with diarrhea (Primary Dx) 05/05/2025 Nurse Triage [facility] Specialty Services [address] [place] [phone] Barbara Le, BARTOLOME from Last 3 Months Immunizations Immunization Administration Dates Next Due COVID-19 mRNA ([employer]TickT[employer]) 0.3 m L (30 mcg) vaccine (12 years and up) 05/31/2024 Influenza, Quadrivalent, Alicia l Culture-based MDCK, Preservative Free, Antibiotic Free, Intramuscular 05/05/2022 Influenza, Quadrivalent, Hig h Dose, Preservative Free, Intrr 05/04/2023 Influenza, Quadrivalent, Spl it, Preservative Free, Intramuscular 07/02/2021,05/20/2019,07/13/2018,06/01,06/30/2016 Influenza, Trivalent, High D ose, Split, Preservative Free, Intramuscular 07/11/2025,05/31/2024 Influenza, Trivalent, Preser vative Free, Intramuscular 05/16/2008 Pfizer SARS-CoV-2 Monovalent Vaccination (12+ Yrs) PURPLE 07/02/2021 Tdap 06/05/2023 Surgical History Surgery Date Site/Laterality Comments [place] BYP OTH/THN VEIN FEMORAL-POPLITEAL Bypass Graft (Non-vein) Femoral-popliteal - (Added by TW Conv) CORONARY ARTERY BYPASS GRAFT 2000 and 2003 Coronary Artery Surgery - (Added by TW Conv) BACK SURGERY Back Surgery - (Added by TW Conv) KNEE SURGERY Knee Surgery - (Added by TW Conv) EXPLORATORY LAPAROTOMY 02/28/2010 - 03/30/2010 At OSH 2/2 concern for ischemic bowel 2/2 acute pancreatitis CAROTID STENT 07/31/2011 - 08/30/2011 Right CARDIAC CATHETERIZATION US GUIDED THORACENTESIS 01/06/2023 N/A Medical History Medical History Date Comments Paresthesia of right arm develop ed after incident where pt was cheering during baseball game. - MRI at outpatient facility notable for C5/6 moderate right foraminal stenosis. Per NSGY conservative management CAD (coronary artery disease) 07/30/2007 s/ p CABGx2 and multiple stents in the past - pt with extensive cardiac hx. Recent cath in December 2010 with severe 3 vessel disease consistent with prior cath. Hospitalized in 05/11 for chest pain and stress at that time w/o change from 2008. Follows w/Dr. Chandra in cardiology -On ASA 81, imdur 30, ramipril 5, atorvastatin 80 (could not afford rosuvastatin) prn SL nitro. -off ranexa and metoprolol 2/2 Benign prostatic hyperplasia with urinary obstruction 04/10/2015 Trial of tamsulosin stopped 2/2 dry mouth. Currently without symptoms. Chronic pain 07/20/2015 2/2 cervical rad iculopathy, R shoulder impingement, LBP, diabetic neuropathy. Diagnosis: cervical spondylosis, cervical and lumbar radiculopathy, multiple lumbar diskectomies subsequent bulging disks. Supporting studies: Cervical MRI (02/2013) shows C5-C7 mild degenerative disease. EMG consistent with electrodiagnostic findings of cervical radiculopathy. Has received shoulder injections of impingem Essential hypertension 01/02/2017 On ramipr il 5 Stopped imdur 10/2018 2/2 lightheadedness Obstructive sleep apnea synd keshav in adult 02/20/2017 Pt self d/c'ed CPAP 2/2 inab ility to sleep with the machine. Trialed on 4 different masks without success. Peripheral arterial disease 08/23/2016 Type 2 diabetes mellitus wit h diabetic neuropathy (HCC) 01/02/2017 Glycemic control (goal A1c < 7): 8.0% 10/25/18-> 8.0% 01/22/2019 Regimen: Basaglar 26U and lispro 8U TIDAC, metformin 1000 mg BID Opthalmology exam: retinopathy seen on 08/2014 Last appt 10/2017, f/up pending Micral: 14.4 10/2018 Proteinuria on an ACEI: on ramipril Foot/extremity exam: monofilament ~50-75% b/l w/ calluses on 11/22/2018, see exam in note Followed in foot clinic, re-referred to podiatry a Mild nonproliferative diabet ic retinopathy of both eyes without macular edema associated with type 2 diabetes mellitus (HCC) 03/29/2019 Anxiety Heart disease Iron deficiency anemia Dr. Lucina Abernathy in November 1999 PONV (postoperative nausea a nd vomiting) controlled with medication CHF (congestive heart failure) (HCC) Atrial fibrillation (HCC) Hyperlipidemia Carotid artery disease Abnormal stress test 03/16/2023 Hx of colonic polyps 06/09/2020 Added autom atically from request for surgery [id number] Hypokalemia 01/09/2023 Hyperkalemia 06/06/2023 Transaminitis 01/14/2023 Family History Medical History Relation Name Comments Lung disease Brother 1 Heart disease Brother 2 Hearing loss Father Heart attack Father Heart failure Father Family history of heart failure - (Added by TW Conv) Pancreatic cancer Mother Sleep apnea Other Family history of sleep apnea - ( Brother) (Added by TW Conv) Heart failure Sister 1 Family history of heart failure - (Added by TW Conv) Diabetes Sister 2 Family history of diabetes mellitus - (Added by TW Conv) Anesthesia problems Neg Hx Relation Name Status Comments Brother 1 Brother 2 Alive Father Mother Other Sister 1 Sister 2 Social History Tobacco Use Types Packs/Day Years Used Date Smoking Tobacco: Every Day Cigarettes 0.8 40 Started: 1982; Last attempted to quit: 2022 Smokeless Tobacco: Never Tobacco Cessation:Ready to Q uit: Not Asked; Counseling Given: Not Answered Comments:refused counseling at this time Alcohol Use [...] often do you attend chur ch or yarsanism services? Never 05/11/2023 Do you belong to any clubs o r organizations such as anabaptism groups, unions, fraternal or athletic groups, or [...] place to sleep or slept in a fpc (including now)? No 05/11/2023 AUDIT-C Answer Date [...] on file Legal Sex Male 1:17 AM REMEDIAL TEACHER Gender Identity Not on file Sexual Orientation Not on file Last Filed Vital Signs Vital Sign Reading Time Taken Comments Blood Pressure 110/62 07/14/2025 2:08 PM REMEDIAL TEACHER Pulse 67 07/14/2025 2:08 PM REMEDIAL TEACHER Temperature 36.4 C (97.5 F) 07/11/2025 11:04 AM REMEDIAL TEACHER Respiratory Rate 18 07/11/2025 11:04 AM REMEDIAL TEACHER Oxygen Saturation 99% 07/14/2025 2:08 PM REMEDIAL TEACHER w/ o2 tank Inhaled Oxygen Concentration - - Weight 72.1 kg (159 lb) 07/14/2025 2:08 PM REMEDIAL TEACHER Height 177.8 cm (5' 10) 06/29/2025 10:54 AM REMEDIAL TEACHER Body Mass Index 22.81 06/29/2025 10:54 AM REMEDIAL TEACHER Plan of Treatment Scheduled Procedures Name Priority Associated Diagnoses Date/Ti me COLONOSCOPY Iron deficiency anemia, unspecified iron deficiency anemia type Health Maintenance Due Date Last Done Comments Hepatitis B Screening 1975 Pneumococcal vaccine 65+ (1 of 2 - PCV) 1976 Dilated Eye Exam 03/29/2020 03/29/2019 Prostate Cancer Screening-PSA 07/22/2021 07/22/2019 Well Visit 65+ 2022 Zoster Vaccine (2 of 2) 10/05/2024 08/10/2024 Fall Risk Assessment 10/26/2024 10/27/2023 Lung Cancer Screening 11/03/2024 11/03/2023, 022 Covid-19 Vaccine ( - 2024-2 6 season) 2025 05/31/2024, 07/02/2021, 10/20/2020, Additional history exists Hemoglobin A1C 01/09/2026 07/11/2025, 10/30, 04/05/2024, Additional history exists Depression Screening 02/05/2026 02/05/2025, 05/08/20 23 Albumin Creatinine Ratio, Urine 02/07/2026 02/07/2025, 02/12/2024, 09/09/2022, Additional history exists Foot Exam 02/07/2026 02/07/2025, 06/01, 11/22/2018 Lipid Panel 02/07/2026 02/07/2025, 08/31, 10/25/2018, Additional history exists eGFR 06/20/2026 06/20/2025, 0707/2024, 10/13/2023, Additional history exists Colon Cancer Screening-Colonoscopy 01/09/2033 01/09/2023, 08/11/2020, 10/01/2015 DTaP/Tdap/Td Vaccine (2 - Td or Tdap) 06/05/2033 06/05/2023 Hepatitis C Screening Completed 01/23/2017, 015 Colon Cancer Screening-CT Colonography Discontinued 01/09/2023, 08/11/2020, 10/01/2015 Colon Cancer Screening-DNA Stool Discontinued 01/09/2023, 08/11/2020, 10/01/2015 Colon Cancer Screening-FIT Discontinued 01/09, 08/11/2020, 10/01/2015 Colon Cancer Screening-Sigmoidoscopy Discontinued 01/09/2023, 08/11/2020, 10/01/2015 Abdominal Aortic Aneurysm (A AA) Screen Completed 05/08/2023, 07/20/2021, 08/16/2018, Additional history exists Influenza Vaccine Completed 07/11/2025, , 05/04/2023, Additional history exists Goals Goal Patient Goal Type Associated Problems [...] take, when to call CM or provider. [facility] Chronic Pain Care Plan Chronic Care Management No change(09/20 9:23 AM REMEDIAL TEACHER) No Marla Sheppard, RN Note: Problem: Chronic Pain// ABD pain, legs Goals: 1. Minimize further functional decline 2. Maximize quality of life 3. Control pain Strategies: - Activity/exercise program recommendation - Conservative stepwise pain medicine strategy with multi-disciplinary approach - Recommend healthy lifestyle strategies and compensatory methods as needed Medical Devices Implanted Type Area Diesel Maintenance Electrician Device Identifier Shelf Expiration Date Model / Serial / Lot NextMedium Angio-Seal Vip 6fr Closere Device [id number] - [id number] - [id number] Implanted:Qty : 1 on 03/24/2023 by Igor Hall MD at [facility] Collagen Right: Femoral [employer] Mahendra 10/29/2023 [id number] / [id number] / [id number] Stent Stent Right: Neck [employer] [id number] Stent System Biomimics 3d Vascular [id number] - [id number] Implanted:Qty : 1 on 08/24/2021 by Koko Cintron MD at [facility] Stent [employer] 10/26/2021 [id number] / / [id number] [employer] [id number] Stent System Biomimics 3d Vascular [id number] - [id number] Implanted:Qty : 1 on 08/24/2021 by Koko Cintron MD at [facility] Stent [employer] 08/08/2022 [id number] / / [id number] Procedures Procedure Name Priority Date/Time Associated Diagnosis Comments TRANSTHORACIC ECHO (TTE) COMPLETE W DOPPLER/CF W CONTRAST Routine 07/15/2025 4:12 PM REMEDIAL TEACHER Arterial insufficiency of lower extremity US VEIN DUPLEX LOWER EXTREMITY RIGHT LIMITED Schedule Routine, Read Routine (OP Routine) 07/14/2025 1:58 PM REMEDIAL TEACHER 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) Encounter for follow-up examination after completed treatment for conditions other than malignant neoplasm US ARTERIAL DOPPLER LOWER EXTREMITY BILATERAL Schedule Routine, Read Routine (OP Routine) 07/14/2025 1:58 PM REMEDIAL TEACHER 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) Encounter for surgical aftercare following surgery on the circulatory system XR KNEE RIGHT 1 OR 2 VIEWS Schedule Routine, Read Routine (OP Routine) 07/11/2025 12:50 PM REMEDIAL TEACHER Acute pain of right knee POCT GLUCOSE DEVICE Routine 07/11/2025 11:09 AM REMEDIAL TEACHER POCT HEMOGLOBIN A1C Routine 07/11/2025 11:09 AM REMEDIAL TEACHER EGFR Routine 06/20/2025 1:07 PM REMEDIAL TEACHER Arterial insufficiency of lower extremity COMPREHENSIVE METABOLIC PANEL Routine 06/20/2025 1:07 PM REMEDIAL TEACHER Arterial insufficiency of lower extremity IGA Routine 05/09/2025 12:50 PM CDT Irritable bowel syndrome with diarrhea TISSUE TRANSGLUTAMINASE, IGA Routine 05/09/2025 12:50 PM CDT Irritable bowel syndrome with diarrhea LIPID PANEL Routine 02/07/2025 9:47 AM CDT Type 2 diabetes mellitus with diabetic neuropathy, unspecified whether buttermaker insulin use (HCC) ALBUMIN CREATININE RATIO, URINE Routine 02/07/2025 9:47 AM CDT Type 2 diabetes mellitus with diabetic neuropathy, unspecified whether care home insulin use (HCC) CT LUNG CANCER SCREENING Schedule Routine, Read Routine (OP Routine) 11/03/2023 11:21 AM CDT Encounter for screening for lung cancer CTA ABDOMINAL AORTA AND BILATERAL ILIOFEMORAL RUNOFF ED Urgent/IP Urgent 05/08/2023 8:14 PM CDT COLONOSCOPY 01/09/2023 11:19 AM CDT PSA, TOTAL AND FREE Routine 07/22/2019 10:21 AM REMEDIAL TEACHER Unintentional weight loss Leukocytosis, unspecified type HEPATITIS PANEL, ACUTE After X-Ray 01/23/2017 10:58 AM CDT from Last 3 Months or Most Recently Relevant to Health Maintenance Results * TRANSTHORACIC ECHO (TTE) COMPLETE W DOPPLER/CF W CONTRAST (07/15/2025 4:12 PM REMEDIAL TEACHER) EF Mod BP 52 % CONS SCIMAGE Anatomical Region Laterality Modality Ultrasound 07/15/2025 2:56 PM REMEDIAL TEACHER Narrative 07/16/2025 10:42 AM REMEDIAL TEACHER [facility] Cardiac [place] [address] Transthoracic Echocardiographic Report Patient Name: DOMINGO COOPER E : 1955 (70y ) Sex: M Study Date: 07/15/2025 02:56:29 PM Ht(Inch): 70 Wt(Lb): 158.95 BSA: 1.89 Warrant Server: RAMESH Li,[facility] Location: [facility] Order Provider: CARLOS A COHEN Heart Rate: 63 BMI: 22.8 BP: 118 / 43 Ref Provider: CARLOS A COHEN PROCEDURES: Echocardiographic Report: Transthoracic complete echo [...] LA Length 4C 6.9 cm AI Decel [place] 3 m/s2 LA Length 2C 6.8 cm [...] By: Mello Gomez M.D. 07/16/2025 10:42:07 AM REMEDIAL TEACHER Procedure Note Mello Gomez MD PhD - 07/16/2025 [facility] Card[facility] [place] [address] Transthoracic Echocardiographic Report Patient Name: DOMINGO COOPER E : 1955 (70y ) Sex: M Study Date: 07/15/2025 02:56:29 PM Ht(Inch): 70 Wt(Lb): 158.95 BSA: 1.89 Warrant Server: RAMESH Li,[facility] Location: [facility] Order Provider:CARLOS A COHEN Heart Rate: 63 BMI: 22.8 BP: 118 / 43 Ref Provider: CARLOS A COHEN PROCEDURES: Echocardiographic Report: Transthoracic complete echo [...] [ -25.0 - -18.0 ] AI Decel Qara0930 sec LA Length 4C 6.9 cm AI Decel [place]3 m/s2 LA Length 2C 6.8 cm AI JVA923 msec LA Volume BP 113 ml RV S`12.5 cm/sec LA Volume Index 60 ml/m2 [ 16 - 34 ] TR Peak Vel3.4 m/s [ 1.0 - 2.8 ] RV Base Dimen 2D 4.3 cm [ 2.5 - 4.2 ] TR Peak PG46 mmHg RV Mid Dimen 2D 3.1 cm TR IYR499 cm RV ED Area 20 cm2 [ 10 - 24 ] RV ES Area 12 cm2 [ 3 - 15 ] RV FAC 39 % [ 35 - 63 ] TAPSE 2.5 cm [ 1.7 - 5.0 ] RA Wvaclb20 ml RA Volume Index33 ml/m2 IVC Diam2.0 cm IVC Collapse 22.5 % AoR Diam 2D 3.6 cm [ 3.1 - 3.7 ] Ao Root Index 1.9 cm/m2 [ 1.0 - 2.0 ] Asc Ao Diam 2D4.0 cm Asc Ao Index2.1 cm/m2 Electronically Signed By: Mello Gomez M.D. 07/16/2025 10:42:07 AM REMEDIAL TEACHER us Carlos A Cohen MD CV ECHO PROCEDURES Final Result * US Vein Duplex Lower Extremity Right Limited, Unilateral (07/14/2025 1:58 PM REMEDIAL TEACHER) Anatomical Region Laterality Modality Vascular Right Ultrasound 07/14/2025 1:25 PM REMEDIAL TEACHER Narrative 07/15/2025 8:55 AM REMEDIAL TEACHER [facility] - Department of Vascular Surgery, Vascular Laboratory [address] [place] [address] Lower Extremity Venous Ultrasound Report Patient Name: DOMINGO COOPER E : 1955 (70y ) Study Date: 07/14/2025 1:25:01 PM Sex: M Tech: DB Location: [facility] Provider: KOKO CINTRON Quality: Adequate Order Provider: KOKO CINTRON PROCEDURES: Vascular Report: Venous Duplex imaging was performed in the right lower extremity. The common femoral, femoral, popliteal, posterior tibial, peroneal veins were evaluated for patency, spontaneity and phasicity with Doppler, compression and augmentation maneuvers. Great saphenous vein proximal at the junction was evaluated with compression maneuvers. INDICATIONS: L97.211 Non-pressure chronic ulcer of right calf limited to breakdown of skin and Z09 Encounter for follow-up examination after completed treatment for conditions other than malignant neoplasm. FINDINGS: Performing Warrant Server: Dior Nassar RVT. Right: Venous Doppler signals in the right lower extremity are within normal limits for spontaneity and respond normally to augmentation maneuvers. No evidence of deep vein thrombus by duplex, proximal to the calf. Comments: Patent right lower bypass graft. Contralateral common femoral vein is imaged for comparison and is patent. Unilateral (limited study) performed per M.D. order. Pulsatile venous Doppler signals are consistent with increased intravascular volume. CONCLUSIONS: 1. There is no evidence of acute deep vein thrombosis on the right. Noninvasive venous studies cannot rule out isolated calf vein obstruction. 2. Pulsatile venous Doppler signals are consistent with increased intravascular volume. HISTORY: Right leg swelling. PREVIOUS STUDIES: Previous study performed on 05/09/23- chronic DVT left leg only. DISCLAIMER: The study images and the final report will be retained in the patient chart by the Vascular Laboratory for the legally required time period. This chart constitutes the legal record of any testing performed. ATTESTATION: I have reviewed and interpreted the pertinent images and measurements of this study. I attest to the conclusions in the final report that is provided above. Electronically Signed By: Koko Cintron MD FACS 07/15/2025 7:48:58 AM REMEDIAL TEACHER Procedure Note Koko Cintron MD - 07/15/2025 [facility] - Department of Vascular Surgery,Vascular Laboratory [address] [place] [address] Lower Extremity Venous Ultrasound Report Patient Name: DOMINGO COOPER E : 1955 (70y ) Study Date: 07/14/2025 1:25:01 PM Sex: M Tech: DB Location: [facility] Ref Provider: KOKO CINTRON Quality: Adequate Order Provider: KOKO CINTRON PROCEDURES: Vascular Report: Venous Duplex imaging was performed in the right lower extremity. Thecommon femoral, femoral, popliteal, posterior tibial, peroneal veins were evaluated forpatency, spontaneity and phasicity with Doppler, compression and augmentationmaneuvers. Great saphenous vein proximal at the junction was evaluated with compressionmaneuvers. INDICATIONS: L97.211 Non-pressure chronic ulcer of right calf limited to breakdown ofskin and Z09 Encounter for follow-up examination after completed treatment forconditions other than malignant neoplasm. FINDINGS: Performing Warrant Server: Dior Nassar RVT. Right: Venous Doppler signals in the right lower extremity are within normallimits for spontaneity and respond normally to augmentation maneuvers. No evidence ofdeep vein thrombus by duplex, proximal to the calf. Comments: Patent right lower bypass graft. Contralateral common femoral vein is imaged for comparison and is patent.Unilateral (limited study) performed per M.D. order. Pulsatile venous Doppler signals are consistent with increasedintravascular volume. CONCLUSIONS: 1. There is no evidence of acute deep vein thrombosis on the right.Noninvasive venous studies cannot rule out isolated calf vein obstruction. 2. Pulsatile venous Doppler signals are consistent with increasedintravascular volume. HISTORY: Right leg swelling. PREVIOUS STUDIES: Previous study performed on 05/09/23- chronic DVT left leg only. DISCLAIMER: The study images and the final report will be retained in the patientchart by the Vascular Laboratory for the legally required time period. This chartconstitutes the legal record of any testing performed. ATTESTATION: I have reviewed and interpreted the pertinent images and measurements ofthis study. I attest to the conclusions in the final report that is provided above. Electronically Signed By: Koko Cintron MD [facility] 07/15/2025 7:48:58 AM REMEDIAL TEACHER us Koko Cintron MD IMG US PROCEDURES Final R esult * US Arterial Doppler Lower Extremity Bilateral (07/14/2025 1:58 PM REMEDIAL TEACHER) Anatomical Region Laterality Modality Vascular Bilateral Ultrasound 07/14/2025 1:37 PM REMEDIAL TEACHER Narrative 07/15/2025 12:41 AM REMEDIAL TEACHER [facility] - Department of Vascular Surgery, Vascular Laboratory [address] [place] [address] Lower Extremity Arterial Doppler Report Patient Name: DOMINGO COOPER E : 1955 Study Date: 07/14/2025 1:37:00 PM Sex: M Tech: Dior Nassar RVT Location: [facility] Provider: KOKO CINTRON Quality: Adequate Order Provider: KOKO CINTRON PROCEDURES: Arterial Report: Bilateral lower extremity arterial Doppler exam at rest. INDICATIONS: L97.211 Non-pressure chronic ulcer of right calf limited to breakdown of skin and Z48.812 Encounter for surgical aftercare following surgery on the circulatory system. MEASUREMENTS: Right Value Units Left Value Units Rt Brachial Pressure 104 mmHg Lt Brachial Pressure 107 mmHg Rt FALL INTERN Pressure 158 mmHg Rt DPA Pressure 79 mmHg Rt 1st Digit Pressure 26 mmHg Rt PT CHATA Resting 1.48 Rt AT CHATA Resting 0.74 Rt Digit/Arm Index 0.24 Right Value Units Left Value Units FINDINGS: Performing Warrant Server: Dior Nassar RVT. Right Common Femoral Artery Analysis: The common femoral artery waveform is multiphasic. Right Popliteal Artery Analysis: Popliteal artery waveform is not assessed due to h/o bypass graft. Right Posterior Tibial Artery Analysis: The posterior tibial waveform is monophasic. Right Anterior Tibial Artery Analysis: The anterior tibial waveform is monophasic. Right Digits: The right digit waveform is dampened. Left Common Femoral Artery Analysis: The common femoral artery waveform is multiphasic. CONCLUSIONS: 1. There is evidence of right leg arterial insufficiency at the level of infrapopliteal arteries. HISTORY: History of right SFA stent and SFA-popliteal bypass graft 08/14/21. Left leg above knee amputation 2022. PREVIOUS STUDIES: Previous study on 03/24/25- R-1.16 L-AKA. DISCLAIMER: The study images and the final report will be retained in the patient chart by the Vascular Laboratory for the legally required time period. This chart constitutes the legal record of any testing performed. ATTESTATION: I have reviewed and interpreted the pertinent images and measurements of this study. I attest to the conclusions in the final report that is provided above. Electronically Signed By: Koko Cintron MD FACS 07/14/2025 11:46:31 PM REMEDIAL TEACHER Procedure Note Koko Cintron MD - 07/15/2025 [facility] - Department of Vascular Surgery,Vascular Laboratory [address] [place] [address] Lower Extremity Arterial Doppler Report Patient Name: DOMINGO COOPER E : 1955 Study Date: 07/14/2025 1:37:00 PM Sex: M Tech: Dior Nassar [facility] Location: [facility] Provider: KOKO CINTRON Quality: Adequate Order Provider: KOKO CINTRON PROCEDURES: Arterial Report: Bilateral lower extremity arterial Doppler exam at rest. 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 MEASUREMENTS: Right Value Units Left Value Units Rt Brachial Pressure 104 mmHg Lt Brachial Pressure 107 mmHg Rt FALL INTERN Pressure 158 mmHg Rt DPA Pressure 79 mmHg Rt 1st Digit Pressure 26 mmHg Rt PT CHATA Resting 1.48 Rt AT CHATA Resting 0.74 Rt Digit/Arm Index 0.24 Right Value Units Left Value Units FINDINGS: Performing Warrant Server: Dior Nassar RVT. Right Common Femoral Artery Analysis: The common femoral artery waveform is multiphasic. Right Popliteal Artery Analysis: Popliteal artery waveform is not assessed due to h/o bypass graft. Right Posterior Tibial Artery Analysis: The posterior tibial waveform is monophasic. Right Anterior Tibial Artery Analysis: The anterior tibial waveform is monophasic. Right Digits: The right digit waveform is dampened. Left Common Femoral Artery Analysis: The common femoral artery waveform is multiphasic. CONCLUSIONS: 1. There is evidence of right leg arterial insufficiency at the level ofinfrapopliteal arteries. HISTORY: History of right SFA stent and SFA-popliteal bypass graft 08/14/21. Leftleg above knee amputation 2022. PREVIOUS STUDIES: Previous study on 03/24/25- R-1.16 LETI. DISCLAIMER: The study images and the final report will be retained in the patientchart by the Vascular Laboratory for the legally required time period. This chartconstitutes the legal record of any testing performed. ATTESTATION: I have reviewed and interpreted the pertinent images and measurements ofthis study. I attest to the conclusions in the final report that is provided above. Electronically Signed By: Koko Cintron MD [facility] 07/14/2025 11:46:31 PM REMEDIAL TEACHER us Koko Cintron MD IMG US PROCEDURES Final R esult * XR Knee Right 1 or 2 Views (07/11/2025 12:50 PM REMEDIAL TEACHER) Anatomical Region Laterality Modality Lower Extremities, Knee Right Computed Radiography 07/11/2025 1:55 PM REMEDIAL TEACHER Impressions 07/11/2025 1:55 PM REMEDIAL TEACHER Modular total right knee arthroplasty in near anatomic position with healed proximal right tibial periprosthetic fracture. Electronically signed by: Nick Gonzalez MD [facility] 07/11/2025 1:55 PM REMEDIAL TEACHER EXAMINATION: XR KNEE RIGHT 1 OR 2 VIEWS HISTORY: Right knee pain FINDINGS: Comparison dated 09/03/2018 and 05/08/2023. Healed oblique fracture involving the lateral aspect of the proximal right tibia. Modular total right knee arthroplasty in place. Moderate size right knee joint effusion. Heterotopic ossification and calcifications about the right knee joint. No acute fracture. Surgical clips are noted medially. Vascular calcifications. Soft tissue swelling of the right knee. Procedure Note Nick Gonzalez MD - 07/11/2025 EXAMINATION: XR KNEE RIGHT 1 OR 2 VIEWS HISTORY: Right knee pain FINDINGS: Comparison dated 09/03/2018 and 05/08/2023. Healed oblique fracture involving the lateral aspect of the proximal right tibia. Modular total right knee arthroplasty in place. Moderate size right knee joint effusion. Heterotopic ossification and calcifications about the right knee joint. No acute fracture. Surgical clips are noted medially. Vascular calcifications. Soft tissue swelling of the right knee. IMPRESSION: Modular total right knee arthroplasty in near anatomic position with healed proximal right tibial periprosthetic fracture. Electronically signed by: Nick Gonzalez MD us Laura Bravo MD IMG XR PROCEDURES Final Result * (ABNORMAL) POCT hemoglobin A1c (07/11/2025 11:09 AM REMEDIAL TEACHER) Hgb A1C, POC 6.3(H) 4.0 - 5.6 % Est Average Gluc POC 134 mg/dL [facility] Comment: The ADA recommends reporting an estimated Average Glucose (eAG) with all Hemoglobin A1c results using the equation derived from a study of 507 normal and diabetic adults. Minority populations were underrepresented and children were not included. (Diabetes Care 31:9171-7298, 2008). The eAG is not equivalent to a fasting glucose. Blood 07/11/2025 11:0 9 AM REMEDIAL TEACHER 07/11/2025 11:09 AM REMEDIAL TEACHER us Laura Bravo MD POINT OF CARE TEST ORDERABLES Fi nal Result Performing Organization Address [facility] de Phone Number [facility] Department [place] [address] * (ABNORMAL) POCT glucose (07/11/2025 11:09 AM REMEDIAL TEACHER) Pathologist [facility] Glucose, POC 286(H) 70 - 199 mg/dL Blood 07/11/2025 11:0 9 AM REMEDIAL TEACHER 07/11/2025 11:09 AM REMEDIAL TEACHER us Laura Bravo MD LAB POCT ORDERABLES - DEVICE Fin al Result Performing Organization Address [facility] Co de Phone Number [facility] Department [place] [address] * eGFR (06/20/2025 1:07 PM REMEDIAL TEACHER) Pathologist [facility] eGFR >90 >=60 mL/min/1. 73 m2 Comment: Interpretive Data Reference Interval Normal >/= 90 mL/min/1.73m2 Mildly decreased* 60 - 89 mL/min/1.73m2 Mildly to moderately decreased 45 - 59 mL/min/1.73m2 Moderately to severely decreased 30 - 44 mL/min/1.73m2 Severely decreased 15 - 29 mL/min/1.73m2 Kidney Failure < 15 mL/min/1.73m2 *Relative to young adult level Estimated glomerular filtration rate is determined by the 2020 CKD-EPI equation recommended by the National Kidney Foundation (A Unifying Approach to GFR Estimation: Recommendations of the NKF-ASK Task Force on Reassessing the Inclusion of Race in Diagnosing Kidney Disease, JASN 2020). The CKD-EPI equation should not be used for patients with unstable renal function and has not been validated in children and those over 70. Current interpretive data was last reviewed 2021. Blood 06/20/2025 1:07 PM REMEDIAL TEACHER 06/20/2025 2:37 PM REMEDIAL TEACHER us Carlos A Cohen MD LAB BLOOD ORDERABLES [place] lock Result [facility] Department [place] [address] * (ABNORMAL) Comprehensive metabolic panel (06/20/2025 1:07 PM REMEDIAL TEACHER) Pathologist [facility] Sodium 139 135 - 145 mmol/L Potassium, pl 4.4 3.3 - 4.9 mmol/L [facility] Chloride 95(L) 97 - 110 mmol/L [facility] CO2 38(H) 22 - 32 mmol/L [facility] Anion gap 6 2 - 15 mmol/L [facility] BUN 16 6 - 25 mg/dL [facility] Creatinine 0.79(L) 0.80 - 1.30 mg/dL [facility] Glucose 121 70 - 199 mg/dL [facility] Comment: Interpretive Data Fasting glucose >/= 126 mg/dl is diagnostic for diabetes. Fasting is defined as no caloric intake for at least 8 hours. Fasting glucose between 100 mg/dl to 125 mg/dl is diagnostic of prediabetes. In a patient with classic symptoms of hyperglycemia or hyperglycemic crisis, a random glucose >/= 200 mg/dl is diagnostic for diabetes. In the absence of unequivocal hyperglycemia, results should be confirmed by repeat testing. The classification and Diagnosis of Diabetes Diabetes Care 202; 46: S19-S40. Current interpretive data was last revised 2022. Calcium 8.1(L) 8.5 - 10.3 mg/dL [facility] Bilirubin, total 0.9 0.1 - 1.2 mg/dL [facility] Protein, pl 6.5 6.5 - 8.5 g/dL [facility] Albumin 3.5 3.5 - 5.0 g/dL [facility] Alk phos 68 40 - 130 Units/L [facility] ALT 17 7 - 55 Units/L [facility] AST 29 10 - 50 Units/L [facility] Blood 06/20/2025 1:07 PM REMEDIAL TEACHER 06/20/2025 2:26 PM REMEDIAL TEACHER us Carlos A Cohen MD LAB BLOOD ORDERABLES [place] l Result Performing Organization Address [facility] Co de Phone Number [facility] Department [place] [address] * Tissue transglutaminase IgA (TGG-IgA Ab) (05/09/2025 12:50 PM CDT) TTG ab, IgA <0.5 <=14.9 units/mL Comment: Interpretive data Negative: <15 units/mL Positive: > or equal to 15 units/mL Current interpretive data was last revised on 2016. Blood 05/09/2025 12:5 0 PM CDT 05/09/2025 2:07 PM CDT us Esteban Aragon MD LAB BLOOD ORDERABLES [place] l Result Performing Organization Address City/[facility]/ZIP Co de Phone Number [facility] Department [place] [address] * IgA (05/09/2025 12:50 PM CDT) Immunoglobulin A 359 70 - 400 mg/dL Blood 05/09/2025 12:5 0 PM CDT 05/09/2025 2:07 PM CDT Esteban Aragon MD LAB BLOOD ORDERABLES [place] l Result Performing Organization Address [facility] Co de Phone Number [facility] Department [place] [address] * Albumin Creatinine Ratio, Urine (02/07/2025 9:47 AM CDT) Albumin Ur <12.0 mg/L Comment: Interpretive Data No reference range established. Current interpretive data was last revised 2018. Creatinine Ur 15.1 mg/dL [facility] Comment: Interpretive Data No reference range established. Current interpretive data was last revised 2018. Albumin Creatinine Ratio, Ur See Comment 1 - 29 mg/g [facility] Comment:Unable to calculate Urine 02/07/2025 9:47 AM CDT 02/07/2025 10:19 AM CDT Shweta Urban NP LAB URINE ORDERABLES [place] l Result Performing Organization Address [facility] Co de Phone Number [facility] Department [place] [address] * (ABNORMAL) Lipid panel (02/07/2025 9:47 AM CDT) Cholesterol 147 30 - 199 mg/dL Comment: Interpretive Data Ages < or = 19 years Acceptable: <170 mg/dL Borderline high: 170-199 mg/dL High: >or= 200 mg/dL Ages > or = 20 years Desirable: <200 mg/dL Borderline high: 200-239 mg/dL High: >or= 240 mg/dL Literature References: 1. Expert Panel on Integrated Guidelines for Cardiovascular Health and Risk Reduction in Children and Adolescents. Pediatrics 2011;128:S213 2. NCEP Expert Panel. Circulation 2004;110:227 Current Interpretive Data was last revised on 2018. Triglycerides 131 <=149 mg/dL [facility] Comment: Interpretive Data Ages < or = 9 years Acceptable: <75 mg/dL Borderline high: 75-99 mg/dL High: >or= 100 mg/dL Ages 10 to 20 years Acceptable: <90 mg/dL Borderline high: 90-129 mg/dL High: >or= 130 mg/dL Ages > or = 20 years Desirable: <150 mg/dL Borderline high: 150-199 mg/dL High: 200-499 mg/dL Very high: >or= 499 mg/dL Literature References: 1. Expert Panel on Integrated Guidelines for Cardiovascular Health and Risk Reduction in Children and Adolescents. Pediatrics 2011;128:S213 2. NCEP Expert Panel. Circulation 2004;110:227 Current Interpretive Data was last revised on 2018. HDL 30(L) >=40 mg/dL [facility] Comment: Interpretive Data Ages < or = 19 years Acceptable: >45 mg/dL Borderline low: 40-45 mg/dL Low: <40 mg/dL Ages > or = 20 years Desirable: >or= 60 mg/dL Low: <40 mg/dL Literature References: 1. Expert Panel on Integrated Guidelines for Cardiovascular Health and Risk Reduction in Children and Adolescents. Pediatrics 2011;128:S213 2. NCEP Expert Panel. Circulation 2004;110:227 Current Interpretive Data was last revised on 2018. LDL, calculated 93 <=129 mg/dL [facility] Comment: Interpretive Data Ages < or = 19 years Acceptable: <110 mg/dL Borderline high: 110-129 mg/dL High: >or= 130 mg/dL Ages > or = 20 years Optimal: <100 mg/dL Near optimal: 100-129 mg/dL Borderline high: 130-159 mg/dL High: >160 mg/dL Calculated using the Chu LDL-C estimating equation. This equation was implemented on 2024. Prior to this date LDL-C was estimated using the Friedewald equation. Literature References: 1. Expert Panel on Integrated Guidelines for Cardiovascular Health and Risk Reduction in Children and Adolescents. Pediatrics 2011;128:S213 2. NCEP Expert Panel. Circulation 2004;110:227 3. Chu Varma al. EDWIN Cardiol. 2020 November 28;5(5):540-548. doi: 10.1001/jamacardio.2020.0013 Current Interpretive Data was last revised on 2024. Non-HDL Cholesterol 117 mg/dL [facility] Comment: Interpretive Data Ages < or = 19 years Acceptable: <120 mg/dL Borderline high: 120-144 mg/dL High: >145 mg/dL Ages > or = 20 years When triglycerides are >200 mg/dL, Non-HDL cholesterol is a secondary target of therapy with treatment goals that are 30 mg/dL greater than the LDL cholesterol target. Literature References: 1. Expert Panel on Integrated Guidelines for Cardiovascular Health and Risk Reduction in Children and Adolescents. Pediatrics 2011;128:S213 2. NCEP Expert Panel. Circulation 2004;110:227 Current Interpretive Data was last revised on 2018. Chol/HDL ratio 5 [facility] Blood 02/07/2025 9:47 AM CDT 02/07/2025 10:19 AM CDT Narrative [facility] - 02/07/2025 11:13 AM CDT These lab test should be done fasting. This means do not eat or drink for at least 12 hours prior to getting your blood drawn. Shweta Urban NP LAB BLOOD ORDERABLES [place] lock Result [facility] Department [place] [address] * CT Lung Cancer Screening (11/03/2023 11:21 AM CDT) Anatomical Region Laterality Modality Chest N/A Computed Tomogra phy 11/03/2023 12:0 3 PM CDT Impressions 11/03/2023 12:10 PM CDT 1. LungRADS Category 1 (negative) . Recommend Low dose Screening CT of chest in 12 months. 2. Mild pulmonary edema similar to CT 10/11/2023. LungRADS Categories: 1 - Negative (no nodules, or only benign calcified or fat-containing nodules) 2 - Benign Appearance or Behavior (nodules with very low likelihood of becoming a clinically active cancer due to size or lack of growth) 3 - Probably Benign (probably benign findings-short term follow up suggested; includes nodules with a low likelihood of becoming a clinically active cancer) 4A,4B,4X - Suspicious (category 3 or 4 nodules with findings for which additional diagnostic testing and/or tissue sampling is recommended) S - Other (clinically significant or potentially clinically significant findings (non-lung cancer) C - Prior Lung Cancer (modifier for patients with a prior diagnosis of lung cancer who return to screening) Dictated by: Dustin Acosta MD The radiology attending physician has personally reviewed this study, and had reviewed and/or edited this written report and agrees with it. Electronically signed by: Susu Singletary M.D. Narrative 11/03/2023 12:10 PM CDT EXAMINATION: Lung cancer screening CT of the Chest without intravenous contrast HISTORY: Lung Cancer Screening TECHNIQUE: Low radiation dose chest protocol. No intravenous contrast. Reconstructed slice width 1.[address] Dose Index 0.78 mGy. Dose-length product 31.6 mGy-cm. COMPARISON: CT Chest PE 10/11/23 FINDINGS: Lung nodules or findings of lung cancer: None. Smoking related lung disease: emphysema Other findings: Mild pulmonary edema similar to CT 10/11/2023. Post operative changes of median sternotomy and coronary artery bypass grafting. Unchanged mild mediastinal lymphadenopathy, for reference a 1.4 cm right paratracheal lymph node on table position 74.8, which are likely reactive. Calcified mediastinal hilar lymphadenopathy. Unchanged small left pleural effusion with pleural thickening and round atelectasis in the left lower lobe. Unchanged mild right pleural thickening. Small hiatal hernia. Mild cardiomegaly unchanged. Aortic valve calcifications. Severe coronary artery calcifications. Mild anasarca. Procedure Note Susu Singletary MD - 11/03/2023 EXAMINATION: Lung cancer screening CT of the Chest without intravenous contrast HISTORY: Lung Cancer Screening TECHNIQUE: Low radiation dose chest protocol. No intravenous contrast. Reconstructed slice width 1.[address] Dose Index 0.78 mGy. Dose-length product 31.6 mGy-cm. COMPARISON: CT Chest PE 10/11/23 FINDINGS: Lung nodules or findings of lung cancer: None. Smoking related lung disease: emphysema Other findings: Mild pulmonary edema similar to CT 10/11/2023. Post operative changes of median sternotomy and coronary artery bypass grafting. Unchanged mild mediastinal lymphadenopathy, for reference a 1.4 cm right paratracheal lymph node on table position 74.8, which are likely reactive. Calcified mediastinal hilar lymphadenopathy. Unchanged small left pleural effusion with pleural thickening and round atelectasis in the left lower lobe. Unchanged mild right pleural thickening. Small hiatal hernia. Mild cardiomegaly unchanged. Aortic valve calcifications. Severe coronary artery calcifications. Mild anasarca. IMPRESSION: 1. LungRADS Category 1 (negative) . Recommend Low dose Screening CT of chest in 12 months. 2. Mild pulmonary edema similar to CT 10/11/2023. LungRADS Categories: 1 - Negative (no nodules, or only benign calcified or fat-containing nodules) 2 - Benign Appearance or Behavior (nodules with very low likelihood of becoming a clinically active cancer due to size or lack of growth) 3 - Probably Benign (probably benign findings-short term follow up suggested; includes nodules with a low likelihood of becoming a clinically active cancer) 4A,4B,4X - Suspicious (category 3 or 4 nodules with findings for which additional diagnostic testing and/or tissue sampling is recommended) S - Other (clinically significant or potentially clinically significant findings (non-lung cancer) C - Prior Lung Cancer (modifier for patients with a prior diagnosis of lung cancer who return to screening) Dictated by: Dustin Acosta MD The radiology attending physician has personally reviewed this study, and had reviewed and/or edited this written report and agrees with it. Electronically signed by: Susu Singletary M.D. Alfredo Negron MD IMG CT PROCEDURES Fin al Result * CTA Abdominal Aorta And Bilateral Iliofemoral Runoff (05/08/2023 8:14 PM CDT) Anatomical Region Laterality Modality Body Bilateral Computed Tomogra phy 05/08/2023 9:29 PM CDT Impressions 05/09/2023 8:54 AM CDT 1. Right lower extremity: Patent superficial femoral artery stent with findings of neointimal hyperplasia with diffuse moderate to severe stenosis. Patent distal femoral to popliteal bypass with three-vessel runoff to the level of ankle, although parts of the bypass graft are not assessed due to associated streak artifact. Small ulcer at the great toe distal tuft without underlying findings of advanced osteomyelitis. 2. Left lower extremity: Interval occlusion of the profunda to posterior tibialis bypass graft with at least two-vessel runoff at the ankle, likely secondary to collaterals. 3. 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 Moderate left pleural effusion with associated atelectasis is slightly decreased in size, and small right pleural effusion with associated atelectasis is unchanged. 4. Persistent diffuse subcutaneous edema at both lower extremities with multiple new small areas of ulceration; recommend correlation with physical examination for signs of infection. No drainable collection or findings of advanced osteomyelitis. Dictated by: Graham Lamar MD The radiology attending physician has personally reviewed this study, and had reviewed and/or edited this written report and agrees with it. Electronically signed by: Jhon Rod M.D. Narrative 05/09/2023 8:54 AM CDT EXAMINATION: CT ANGIOGRAPHY OF THE ABDOMEN, PELVIS, AND LOWER EXTREMITIES WITH CONTRAST HISTORY: Status post left femoral-tibial bypass and right superficial femoral artery stent and right superficial femoral artery to below the knee bypass graft presenting with multiple wounds of the left lower extremity TECHNIQUE: CT angiography of the abdomen, pelvis, and lower extremities was performed following the uneventful intravenous administration of 90 ml [id number]. Vascular 3D images were generated on a dedicated workstation and also reviewed. COMPARISON: 07/20/2021, 08/06/2022 FINDINGS: VASCULAR FINDINGS: Abdominal Aorta and Branches: There is severe atherosclerosis of the abdominal aorta with ulcerative plaque, but no significant stenosis Celiac axis: Moderate multifocal stenosis at the proximal common hepatic artery and splenic artery SMA: no significant stenosis CAMI: Severe stenosis at its origin Right renal vessels: no significant stenosis. Two right renal arteries. Left renal vessels: no significant stenosis Infrarenal aorta: no significant stenosis. No aneurysm. Pelvic Vessels: R. Common iliac artery: Mild to moderate stenosis R. External iliac artery: Unchanged focal intimal flap seen at series 4, image 3-36. No significant stenosis. R. Internal iliac artery: Mild multifocal stenosis L. Common iliac artery: no significant stenosis L. External iliac artery: Mild multifocal stenosis is L. Internal iliac artery: Mild multifocal stenosis Right Lower Extremity: Mildly limited evaluation due to associated streak artifact from arthroplasty. R. Common femoral artery: Mild to moderate multifocal stenosis R. Profunda femoris artery: Moderate stenosis at the origin R. Superficial femoral artery: Interval placement of a stent which is favored to be patent, although evaluation is mildly limited by blooming artifact from adjacent calcifications; there is multifocal mild to moderate stenosis of the stent. There is a bypass graft at the distal superficial femoral artery which anastomoses to the tibioperoneal trunk; the bypass graft is patent R. Popliteal artery: Occluded R. Anterior tibial artery: Mild multifocal stenosis but patent R. Tibioperoneal trunk: no significant stenosis R. Posterior tibial artery: Diminutive with multifocal calcifications that limit assessment R. Peroneal artery: no significant stenosis R. Dorsalis pedis artery: Patent R. Plantar artery: Patent Left Lower Extremity: There is an unchanged thrombosed femoral to popliteal bypass graft. Again seen is a profunda to posterior tibialis bypass graft which is severely diminutive throughout its course and is likely occluded just proximal to the knee, approximately at series 8 image 127. The calf vessels appear to be supplied by collaterals. L. Common femoral artery: no significant stenosis L. Profunda femoris artery: no significant stenosis L. Superficial femoral artery: Severe stenosis proximally and occluded distally L. Popliteal artery: Occluded L. Anterior tibial artery: Diminutive throughout its course L. Tibioperoneal trunk: Occluded proximally but reconstitutes distally L. Posterior tibial artery: Diminutive but patent L. Peroneal artery: Patent L. Dorsalis pedis artery: Patent L. Plantar artery: Patent NON-VASCULAR FINDINGS: CHEST: Imaged lung bases reveal stable areas of subpleural reticulation throughout both lungs with persistent areas of smooth interlobular septal thickening bilaterally with patchy areas of groundglass throughout both lungs. Small right pleural effusion is unchanged. Moderate left pleural effusion with associated atelectasis is slightly decreased in size; mild pleural enhancement is unchanged and likely represents sequelae of chronic effusion/pleuritis. Esophagus is non-dilated. Small hiatal hernia. Imaged heart is enlarged, unchanged. No pericardial effusion. Partially imaged changes of median sternotomy. Coronary artery calcification. Small fat-containing umbilical hernia. Mild diffuse body wall edema is unchanged. Spleen is atrophic, unchanged. Unchanged 2.5 cm calcified mass at the inferior aspect of the spleen, possibly post-traumatic or sequelae of prior infarct. Pancreas is normal. Kidneys enhance symmetrically. No hydronephrosis or suspicious renal lesion. Stable nodular thickening of both adrenal glands. No suspicious liver lesion. Gallbladder is normal. No intrahepatic or extrahepatic biliary ductal dilation. Abdominal aorta and its branches are normal caliber. Portal vasculature is unremarkable. The femoral vasculature is unremarkable. Stomach is nondistended. Small bowel and colon are normal in caliber without evidence of obstruction. There is colonic diverticulosis without evidence of diverticulitis. No appendiceal inflammation. No pneumoperitoneum or ascites. Urinary bladder is thick-walled, likely sequelae of chronic outlet obstruction. Prostate is mildly enlarged. No abdominal or pelvic lymphadenopathy. No suspicious osseous lesion. There is a right knee arthroplasty. There is unchanged diffuse subcutaneous edema about both lower extremities, greatest at the distal aspects; there is a small area of ulceration at the lateral aspect of the left calf (series 4, image 1063). There is a new small area of ulceration at the right great toe (series 7, image 679), as well as at the inferior aspect of the left third toe distal tuft. No drainable fluid collection, osseous erosion or suspicious periosteal reaction. Postsurgical changes of amputation of the left distal 5th toe. Healing left lower rib fracture. Procedure Note Jhon Rod MD - 05/09/2023 EXAMINATION: CT ANGIOGRAPHY OF THE ABDOMEN, PELVIS, AND LOWER EXTREMITIES WITH CONTRAST HISTORY: Status post left femoral-tibial bypass and right superficial femoral artery stent and right superficial femoral artery to below the knee bypass graft presenting with multiple wounds of the left lower extremity TECHNIQUE: CT angiography of the abdomen, pelvis, and lower extremities was performed following the uneventful intravenous administration of 90 ml Optiray-350. Vascular 3D images were generated on a dedicated workstation and also reviewed. COMPARISON: 07/20/2021, 08/06/2022 FINDINGS: VASCULAR FINDINGS: Abdominal Aorta and Branches: There is severe atherosclerosis of the abdominal aorta with ulcerative plaque, but no significant stenosis Celiac axis: Moderate multifocal stenosis at the proximal common hepatic artery and splenic artery SMA: no significant stenosis CAMI: Severe stenosis at its origin Right renal vessels: no significant stenosis. Two right renal arteries. Left renal vessels: no significant stenosis Infrarenal aorta: no significant stenosis. No aneurysm. Pelvic Vessels: R. Common iliac artery: Mild to moderate stenosis R. External iliac artery: Unchanged focal intimal flap seen at series 4, image 3-36. No significant stenosis. R. Internal iliac artery: Mild multifocal stenosis L. Common iliac artery: no significant stenosis L. External iliac artery: Mild multifocal stenosis is L. Internal iliac artery: Mild multifocal stenosis Right Lower Extremity: Mildly limited evaluation due to associated streak artifact from arthroplasty. R. Common femoral artery: Mild to moderate multifocal stenosis R. Profunda femoris artery: Moderate stenosis at the origin R. Superficial femoral artery: Interval placement of a stent which is favored to be patent, although evaluation is mildly limited by blooming artifact from adjacent calcifications; there is multifocal mild to moderate stenosis of the stent. There is a bypass graft at the distal superficial femoral artery which anastomoses to the tibioperoneal trunk; the bypass graft is patent R. Popliteal artery: Occluded R. Anterior tibial artery: Mild multifocal stenosis but patent R. Tibioperoneal trunk: no significant stenosis R. Posterior tibial artery: Diminutive with multifocal calcifications that limit assessment R. Peroneal artery: no significant stenosis R. Dorsalis pedis artery: Patent R. Plantar artery: Patent Left Lower Extremity: There is an unchanged thrombosed femoral to popliteal bypass graft. Again seen is a profunda to posterior tibialis bypass graft which is severely diminutive throughout its course and is likely occluded just proximal to the knee, approximately at series 8 image 127. The calf vessels appear to be supplied by collaterals. L. Common femoral artery: no significant stenosis L. Profunda femoris artery: no significant stenosis L. Superficial femoral artery: Severe stenosis proximally and occluded distally L. Popliteal artery: Occluded L. Anterior tibial artery: Diminutive throughout its course L. Tibioperoneal trunk: Occluded proximally but reconstitutes distally L. Posterior tibial artery: Diminutive but patent L. Peroneal artery: Patent L. Dorsalis pedis artery: Patent L. Plantar artery: Patent NON-VASCULAR FINDINGS: CHEST: Imaged lung bases reveal stable areas of subpleural reticulation throughout both lungs with persistent areas of smooth interlobular septal thickening bilaterally with patchy areas of groundglass throughout both lungs. Small right pleural effusion is unchanged. Moderate left pleural effusion with associated atelectasis is slightly decreased in size; mild pleural enhancement is unchanged and likely represents sequelae of chronic effusion/pleuritis. Esophagus is non-dilated. Small hiatal hernia. Imaged heart is enlarged, unchanged. No pericardial effusion. Partially imaged changes of median sternotomy. Coronary artery calcification. Small fat-containing umbilical hernia. Mild diffuse body wall edema is unchanged. Spleen is atrophic, unchanged. Unchanged 2.5 cm calcified mass at the inferior aspect of the spleen, possibly post-traumatic or sequelae of prior infarct. Pancreas is normal. Kidneys enhance symmetrically. No hydronephrosis or suspicious renal lesion. Stable nodular thickening of both adrenal glands. No suspicious liver lesion. Gallbladder is normal. No intrahepatic or extrahepatic biliary ductal dilation. Abdominal aorta and its branches are normal caliber. Portal vasculature is unremarkable. The femoral vasculature is unremarkable. Stomach is nondistended. Small bowel and colon are normal in caliber without evidence of obstruction. There is colonic diverticulosis without evidence of diverticulitis. No appendiceal inflammation. No pneumoperitoneum or ascites. Urinary bladder is thick-walled, likely sequelae of chronic outlet obstruction. Prostate is mildly enlarged. No abdominal or pelvic lymphadenopathy. No suspicious osseous lesion. There is a right knee arthroplasty. There is unchanged diffuse subcutaneous edema about both lower extremities, greatest at the distal aspects; there is a small area of ulceration at the lateral aspect of the left calf (series 4, image 1063). There is a new small area of ulceration at the right great toe (series 7, image 679), as well as at the inferior aspect of the left third toe distal tuft. No drainable fluid collection, osseous erosion or suspicious periosteal reaction. Postsurgical changes of amputation of the left distal 5th toe. Healing left lower rib fracture. IMPRESSION: 1. Right lower extremity: Patent superficial femoral artery stent with findings of neointimal hyperplasia with diffuse moderate to severe stenosis. Patent distal femoral to popliteal bypass with three-vessel runoff to the level of ankle, although parts of the bypass graft are not assessed due to associated streak artifact. Small ulcer at the great toe distal tuft without underlying findings of advanced osteomyelitis. 2. Left lower extremity: Interval occlusion of the profunda to posterior tibialis bypass graft with at least two-vessel runoff at the ankle, likely secondary to collaterals. 3. 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 Moderate left pleural effusion with associated atelectasis is slightly decreased in size, and small right pleural effusion with associated atelectasis is unchanged. 4. Persistent diffuse subcutaneous edema at both lower extremities with multiple new small areas of ulceration; recommend correlation with physical examination for signs of infection. No drainable collection or findings of advanced osteomyelitis. Dictated by: Graham Lamar MD The radiology attending physician has personally reviewed this study, and had reviewed and/or edited this written report and agrees with it. Electronically signed by: Jhon Rod M.D. Thelma Lamar MD IMG CT PROCEDURES Final Re sult * COLONOSCOPY (01/09/2023 11:19 AM CDT) Anatomical Region Laterality Modality Other Narrative Procedure Note Radha Miranda MD - 01/09/2023 11:19 AM CDT [facility] Patient Name: Domingo Cooepr Procedure Date: 01/09/2023 11:19 AM Date of : 1955 Admit Type: Inpatient Age: 67 Gender: Male Attending MD: Radha Miranda M.D. Room: [facility] OR POD 5 ROOM 229 Note Status: Finalized Procedure: Colonoscopy Indications: anemia Referring MD: Providers: Radha Miranda M.D., Rachelle Prakash M.D. Medicines: Monitored Anesthesia Care Complications: No immediate complications. Estimated Blood Loss: Estimated blood loss was minimal. Procedure: Pre-Anesthesia Assessment: - Immediately prior to administration ofmedications, the patient was re-assessed for adequacy to receive sedatives. - The risks and benefits of the procedure and the sedation options and risks were discussed with the patient. All questions were answered and informed consent was obtained. The benefits, risks and alternatives of theprocedure and sedation were discussed and informed consentwas obtained. All questions were answered. Please referto the signed informed consent document in the medical record. The scope was passed under direct vision.The CF [id number] Endoscope was introduced through the anus and advanced to the the terminal ileum.The colonoscopy was performed without difficulty. The patient tolerated the procedure well. The qualityof the bowel preparation was good. The bowelpreparation used was GoLYTELY via split dose instruction. Split Dose in Name box and Bowel prep was administeredusing a split dose. Findings: The perianal and digital rectal examinations were normal. Internal hemorrhoids were found during retroflexion. The exam was otherwise without abnormality. The terminal ileum showed minmal focal erythema. Biopsies were taken with a cold forceps for histology. Impression: - Internal hemorrhoids. - The examination was otherwise normal. - The examined portion of the ileum was normal. Biopsied. Recommendation: - Await pathology results. - Further plan per inpatient GI team Attending Participation: I was present and participated during the entire procedure, including non-youngblood portions. Electronically signed by Radha Miranda MD Radha Miranda M.D. 01/09/2023 12:12:01 PM Number of Addenda: 0 Note Initiated On: 01/09/2023 11:19 AM Recognized by the [place] [employer] for promoting quality in endoscopy us Radha Miranda MD ENDOSCOPY PROCEDURES Final Res ult * PSA, total and free (07/22/2019 10:21 AM REMEDIAL TEACHER) PSA-free 0.1 ng/mL [facility] PSA-Total 0.52 <=4.5 ng/mL [facility] PSA-Free/Total Ratio See Footnote [facility] Comment: Ratio not calculated because clinical usefulness is not defined except in range of total PSA 4.0-10.0 ng/mL. ADDITIONAL INFORMATION The testing method is an electrochemiluminescence assay manufactured by [employer] and performed on the Modular or Sara system. Values obtained with different assay methods or kits may be different and cannot be used interchangeably. Test results cannot be interpreted as absolute evidence for the presence or absence of malignant disease. Test Performed by: [facility] [address] [place] [address] Crank Hand: Bob Sarkar M.D. Ph.D.; CLIA# [id number] Blood specimen (specimen) 07/22/2019 10:21 AM REMEDIAL TEACHER 07/22/2019 10:52 AM REMEDIAL TEACHER Sorin Santos MD LAB BLOOD ORDERABLES nal Result [facility] Department [place] [address] * Hepatitis panel, acute (01/23/2017 10:58 AM CDT) Hep A IgM Nonreactive Nonreactive [facility] Comment: Interpretive Data If test is reported as GRAYZONE, new sample should be drawn in two weeks for testing. Current interpretive data was last revised on 2016. Hep B core IgM Nonreactive Nonreactive [facility] Comment: Interpretive Data If test is reported as GRAYZONE, new sample should be drawn for testing. Current interpretive data was last revised on 2016. Hep C Ab Nonreactive Nonreactive [facility] Comment: Interpretive Data Positive and greyzone results should be confirmed by a molecular method. If positive or greyzone, a second separately collected sample should be submitted for Hepatitis C Virus RNA. Detection and Quantitation by Real-Time Reverse Flyer Maker-PCR.Current Interpretive data was last revised on 2017. HepBsAg Nonreactive Nonreactive [facility] Blood specimen (specimen) 01/23/2017 10:58 AM CDT 01/23/2017 12:08 PM CDT Rina Najrabi MAMMALOGIST LAB MICROBIOLOGY - GENERAL OR DERABLES Edited Result - Final [facility] Department [place] [address] from Last 3 Months or Most Recently Relevant to Health Maintenance Insurance Project [address] [facility] [place] Member Subscriber Plan / Payer (Ef fective 2019-Present) Name:Domingo Cooper Relation to Subscriber:Spouse Name:MAY YANEZ Date of :1964 (Home) Address: [facility] [place] [address] Payer ID:[id number] (NAIC) Type:[facility] Address: [address] [place] [id number] MEDICARE MEDICARE ANTHEM ACCESS CHOICE MEDICARE ANTHEM ACCESS CHOICE ANTHEM ACCESS CHOICE Advance Directives For more information, please contact: [phone] * LIMITED - No CPR (Latest Code Status on File) Date Activated Date Inactivated Comments 05/09/2023 6:28 AM 05/17/2023 9:43 PM * LIMITED - No CPR Date Activated Date Inactivated Comments 01/02/2023 10:45 PM 01/14/2023 5:31 PM Question Answer Comments Provide aggressive medical m anagement before a full cardiopulmonary arrest occurs. Use antibiotics, IV Fluids, and medical treatment unless specifically selected below: No intubation * Full Code Date Activated Date Inactivated Comments 01/02/2023 9:56 PM 01/02/2023 10:45 PM * LIMITED - No CPR Date Activated Date Inactivated Comments 09/27/2022 7:39 AM 12/13/2022 5:09 PM Question Answer Comments Cardio Resuscitation: No Chest Compressions * Full Code Date Activated Date Inactivated Comments 08/24/2021 4:59 PM 08/25/2021 1:56 PM Care Teams Engine Dynamometer Tester Relationship Specialty Start Date End Date Harjeet Cintron MD [address] [place] [address] PCP - General 01/20/24 Koko Cintron MD Surgeon Vascular Surgery 08/25/21
--- OUTSIDE RECORDS SUMMARY | 2025-07-16 13:17 | XMS_ITS | Encounter Summary ---
Author Organization [facility] Address [address] [place] [address] Phone Care Team Providers Care Non Destructive Evaluation Technician Name Role Phone Amando Cintron MD Unavailable [phone] Harjeet Cintron MD Primary Care Prov ider Encounter Details Date Type Department Care Team (Late st Contact Info) Description 07/15/2025 Telephone [facility] Medicine Surgery [address] [facility] [address] [place] [address] Amando Cintron MD [address] [facility] [address] [place] [id number] Social History Tobacco Use Types Packs/Day Years [...] often do you attend chur ch or nondenominational services? Never 05/11/2023 Do you belong to [...] in a mcfp (including now)? 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 Please return his call CTIVE AND INTELLIGENCE ANALYST documented in this encounter Plan of Treatment Scheduled Procedures Name Priority Associated Diagnoses Date/Ti me COLONOSCOPY Iron deficiency anemia, unspecified iron deficiency anemia type documented as of this encounter Goals Goal Patient Goal Type Associated Problems Recent Progress Patient-Stated? Author Diabetes Goal - Do not skip meals ACO Care Management Improving( 1:04 PM CDT) No Zahira Lamar, RN Smoking Goal - Patient will be [...] take, when to call CM or provider. [facility] Chronic Pain Care Plan Chronic Care Management No change(09/20 9:23 AM DETECTIVE AND INTELLIGENCE ANALYST) No Marla Sheppard, RN Note: Problem: Chronic [...] on filedocumented in this encounter Care Teams Non Destructive Evaluation Technician Relationship Specialty Start Date End Date Harjeet Cintron MD [address] [place] [address] PCP - General 01/20/24 Amando Cintron MD Surgeon Vascular Surgery 08/25/21 documented as of this encounter
--- OUTSIDE RECORDS SUMMARY | 2025-07-16 13:17 | XMS_ITS | Encounter Summary ---
Author Organization [facility] Address [address] [place] [address] Care Team Providers Care Infrastructure Design Engineer Name Role Phone Amando Cintron MD Unavailable [phone] Alfredo Negron MD Primary Care Provide r Angélica Boyd RN Unavailable Unavailable Rosalva Prince RN Unavailable [phone] Nisha Lepe RN Unavailable [phone] Harjeet Cintron MD Primary Care Prov ider Encounter Details Date Type Department Care Team (Late st Contact Info) Description 09/14/2022 Telephone [facility] Primary Care Medicine Clinic [address] [facility] [address] [place] [address] Dewayne Valentine Social History Tobacco [...] on file Legal Sex Male 1:17 AM HAND 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 [facility] Chronic Pain Care Plan Chronic Care Management No change(09/20 9:23 AM HAND UPPER AND BOTTOM LACER) Marla Mcdaniel RN Note: Problem: Chronic Pain// [...] documented as of this encounter Care Teams Infrastructure Design Engineer Relationship Specialty Start Date End Date Alfredo Negron MD PCP - General Internal Medicine 10/28/21 01/19/24 Harjeet Cintron MD [address] [place] [address] PCP - General 01/20/24 Amando Cintron MD Surgeon Vascular Surgery 08/25/21 Angélica Boyd RN Registered Nurse Pulmonary Disease 02/09/22 11/08/24 Roaslva Prince, BARTOLOME [address] [facility] [address] [place], [place] [id number] SHOP Outpatient Bobbin Cleaning Machine Operator 01/03/23 01/15/23 Nisha Lepe, BARTOLOME [address] [place] [address] [address] [place] [address] Ukrainian Folk Arts Instructor 01/21/23 02/16/23 documented as of this encounter
--- OUTSIDE RECORDS SUMMARY | 2025-07-16 13:17 | XMS_ITS | Encounter Summary ---
Author Organization [facility] Address [address] [place] [address] Care Team Providers Care Director Trial Name Role Phone Amando Cintron MD Unavailable Alfredo Negron MD Primary Care Provide r Angélica Boyd RN Unavailable Unavailable Rosalva Prince RN Unavailable [phone] Nisha Lepe RN Unavailable Harjeet Cintron MD Primary Care Prov ider Encounter Details Date Type Department Care Team (Late st Contact Info) Description 09/16/[address] [facility] Primary Care Medicine Clinic [address] 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 [facility] Chronic Pain Care Plan Chronic Care Management No change(09/20 9:23 AM BUS INSPECTOR) Marla Mcdaniel RN Note: Problem: Chronic Pain// [...] documented as of this encounter Care Teams Director Trial Relationship Specialty Start Date End Date Alfredo Negron MD PCP - General Internal Medicine 10/28/21 01/19/24 Harjeet Cintron MD [address] [place] [address] PCP - General 01/20/24 Amando Cintron MD Surgeon Vascular Surgery 08/25/21 Angélica Boyd, BARTOLOME Registered Nurse Pulmonary Disease 02/09/22 11/08/24 Rosalva Prince, BARTOLOME [address] [facility] [address] [place] [address] SHOP Outpatient Designer And Patternmaker 01/03/23 01/15/23 Nisha Lepe RN [address] [place] [address] [address] [place] [address] Potato Peeling Machine Operator 01/21/23 02/16/23 documented as of this encounter
--- OUTSIDE RECORDS SUMMARY | 2025-07-16 13:17 | XMS_ITS | Encounter Summary ---
Author Organization [facility] Address [address] [place] [address] Care Team Providers Care Proofing Machine Operator Name Role Phone Amando Cintron MD Unavailable Alfredo Negron MD Primary Care Provide r Angélica Boyd RN Unavailable Unavailable Rosalva Prince RN Unavailable [phone] Nisha Lepe RN Unavailable Harjeet Cintron MD Primary Care Prov ider Encounter Details Date Type Department Care Team (Late st Contact Info) Description 09/22/2022 Telephone [facility] Primary Care Medicine Clinic [address] [facility] [address] [place] [address] Alfredo Negron MD [address] [facility] [address] [place] [address] Social History Tobacco Use Types Packs/Day Years [...] on file Legal Sex Male 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 [facility] Chronic Pain Care Plan Chronic Care Management No change(09/20 9:23 AM SHEET METAL SMITH) Marla Mcdaniel RN Note: Problem: Chronic Pain// [...] documented as of this encounter Care Teams Proofing Machine Operator Relationship Specialty Start Date End Date Alfredo Negron MD PCP - General Internal Medicine 10/28/21 01/19/24 Harjeet Cintron MD [address] [place] [address] PCP - General 01/20/24 Amando Cintron MD Surgeon Vascular Surgery 08/25/21 Angélica Boyd, BARTOLOME Registered Nurse Pulmonary Disease 02/09/22 11/08/24 Rosalva Prince, BARTOLOME [address] [facility] [address] [place] [address] SHOP Outpatient Financial Analysis Consultant 01/03/23 01/15/23 Nisha Lepe RN [address] [place] [address] [address] [place] [address] Retail Pos Specialist 01/21/23 02/16/23 documented as of this encounter
--- OUTSIDE RECORDS SUMMARY | 2025-07-16 13:17 | XMS_ITS | Encounter Summary ---
Author Organization [facility] Healthcare Address [address] [place] [address] Care Team Providers Care Sign Language Instructor Name Role Phone Amando Cintron MD Unavailable Alfredo Negron MD Primary Care Provide r Angélica Boyd RN Unavailable Unavailable Rosalva Prnice RN Unavailable [phone] Nisha Lepe RN Unavailable [phone] Harjeet Cintron MD Primary Care Prov ider Encounter Details Date Type Department Care Team (Late st Contact Info) Description 08/30/[address] 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 [facility] Chronic Pain Care Plan Chronic Care Management No change(09/20 9:23 AM HORSE SHOER) Marla Mcdaniel RN Note: Problem: Chronic Pain// [...] documented as of this encounter Care Teams Sign Language Instructor Relationship Specialty Start Date End Date Alfredo Negron MD PCP - General Internal Medicine 10/28/21 01/19/24 Harjeet Cintron MD [address] [place] [address] PCP - General 01/20/24 Amando Cintron MD Surgeon Vascular Surgery 08/25/21 Angélica Boyd RN Registered Nurse Pulmonary Disease 02/09/22 11/08/24 Rosalva Prince, BARTOLOME [address] [facility] [address] [place] [address] SHOP Outpatient Operating Room Coordinator 01/03/23 01/15/23 Nisha Lepe, BARTOLOME [address] [place] [address] [address] [place] [address] Aerodynamics Engineer 01/21/23 02/16/23 documented as of this encounter
--- OUTSIDE RECORDS SUMMARY | 2025-07-16 14:00 | XMS_ITS | Encounter Summary ---
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 Never 05/11/2023 Do you belong to any clubs o r organizations such as mandaen groups, unions, fraternal or athletic groups, or [...] a senior living (including now)? No 05/11/2023 AUDIT-C Answer Date [...] on file Legal Sex Male 1:17 AM INVASIVE CARDIOVASCULAR TECHNOLOGIST Gender Identity Not on file Sexual Orientation [...] Chronic Care Management No change(09/20 9:23 AM INVASIVE CARDIOVASCULAR TECHNOLOGIST) No Marla Sheppard, RN Note: Problem: Chronic [...] Care Plan Visit Details Visit Type -SN Home Visit Discipline -Senior Living Problems Problem Description Start Date Status Goals Interve ntions Medications Disciplines: Senior Living Management of home medications 06/29/2025 Active 1 goal linked to scheduled/documen yaya intervention 2 goal interventions scheduled/documen yaya in this visit Oxygen Safety Education Disciplines: Skilled Disciplines Oxygen Safety Education 06/29/2025 Active 1 goal linked to scheduled/documen yaya intervention 1 goal intervention scheduled/documen yaya in this visit Monitor patient's vital signs every home health visit Disciplines: Skilled Disciplines, SN, PT, OT, TANK CAR CLEANER, REGIONAL REFRIGERATED CDL TRUCK DRIVER Monitor patient's vital signs every home health [...] intervention scheduled/documen yaya in this visit Wound Care Disciplines: Core Disciplines Wound care needed #2 right proximal garcia 06/30/2025 Active 1 goal linked to scheduled/documen yaya intervention 1 goal intervention scheduled/documen yaya in this visit Wound Care Disciplines: Core Disciplines Wound care needed #4 right lateral foot 06/30/2025 Active 1 goal linked to scheduled/documen yaya intervention 1 goal intervention scheduled/documen yaya in this visit Wound Care Disciplines: Core Disciplines Wound care needed #5 right medial garcia 06/30/2025 Active 1 goal linked to scheduled/documen yaya intervention 1 goal intervention scheduled/documen yaya in this visit Wound Care Disciplines: Core Disciplines Wound care needed #6 right distal garcia 06/30/2025 Active 1 goal linked to scheduled/documen yaya intervention 1 goal intervention scheduled/documen yaya in this visit Wound Care Disciplines: Core Disciplines Wound care needed #3 right great toe 06/30/2025 Active 1 goal linked to scheduled/documen yaya intervention 1 goal intervention scheduled/documen yaya in this visit Wound Care Disciplines: Core Disciplines Wound care needed #7 right 2nd toe 06/30/2025 Active 1 goal linked to scheduled/documen yaya intervention 1 goal intervention scheduled/documen yaya in this visit Wound Care Disciplines: Core Disciplines Wound care needed #8 right 3rd toe 06/30/2025 Active 1 goal linked to scheduled/documen yaya intervention 1 goal intervention scheduled/documen yaya in this visit Wound Care Disciplines: Core Disciplines Wound care needed #9 right 4th toe 06/30/2025 Active 1 goal linked to scheduled/documen yaya intervention 1 goal intervention scheduled/documen yaya in this visit Wound Care Disciplines: Core Disciplines Wound care needed #10 L forearm 07/01/2025 Active 1 goal linked to scheduled/documen yaya intervention 1 goal intervention scheduled/documen yaya in this visit Pressure Prevention Disciplines: Skilled Disciplines Pressure Prevention 07/11/2025 Active 1 goal linked to scheduled/documen yaya [...] visit during episode of care Description: Home metal spray operator to measure vital signs during every home [...] health services. Wound Education and Management No Progression towards healing Description: Wound #2 right proximal garcia show progression towards healing by 07/31/25 Wound Care No Progression towards healing Description: Wound #4 right lateral foot show progression towards healing by 07/31/25 Wound Care No Progression towards healing Description: Wound #5 right medial garcia show progression towards healing by 07/31/25 Wound Care No Progression towards healing Description: Wound #6 right distal garcia show progression towards healing by 07/31/25 Wound Care No Progression towards healing Description: Wound #3 right great toe show progression towards healing by 07/31/25 Wound Care No Progression towards healing Description: Wound #7 right 2nd toe show progression towards healing by 07/31/25 Wound Care No Progression towards healing Description: Wound #8 right 3rd toe show progression towards healing by 07/31/25 Wound Care No Progression towards healing Description: Wound #9 right 4th toe show progression towards healing by 07/31/25 Wound Care No Progression towards healing Description: Wound show progression towards healing by 08/01/25 Wound Care No Prevent development of pressure injuries Description: terminal computer operator goal: The patient will maintain intact skin and avoid the development of pressure injuries within 1 month Short term goal: The patient/caregiver will understand and adhere to pressure prevention interventions within 2 weeks Pressure Prevention No Interventions Intervention Associated Problem/Goal Status Variance Visit Notes Instruct on Medication Management Description: Assess patient/caregiver ability to demonstrate management of medications, steps to obtain new/refills of medications and identification of new or changed medications. Assess patient/caregiver ability to verbalize accurate dose/route/frequency/reason for medication, how to evaluate effectiveness of medication, ongoing lab work needed to ensure therapeutic dosing, drug/food interactions, side effects/adverse reactions, contraindications for medications and known drug allergies. Evaluate the effectiveness of current treatment regimen and notify the appropriate healthcare provider for the need for changes in the plan of care. Problem:Medications Goal:Understand and follow medication therapy Scheduled Instruct on High Risk Medications Description: Instruct patient/caregiver on oral or injectable high-risk medications, including: anticonvulsant, antiretroviral, anticoagulant, antibiotics, chemotherapeutic, hypoglycemic including insulin, immunosuppressant, antipsychotic, and opioids. Problem:Medications Goal:Understand and follow medication therapy Scheduled Oxygen Safety Education Description: Instruct patient/caregiver on oxygen use and safety precautions such as no smoking, posting oxygen sign, staying at least 10 feet from open flames, avoid using oil-based products, and proper storage of portable tanks. Instruct patient to call [employer] with oxygen issues or malfunctions. Problem:Oxygen Safety Education Goal:Demonstrate safe oxygen usage Scheduled Monitor Vital Signs Description: Monitor blood pressure, pulse, oxygen saturation, respirations Problem:Monitor patient's vital signs every home health visit Goal:Measure vital signs during every home health visit during episode of care Scheduled Educate Patient on Infection Prevention Description: Instruct patient on signs and symptoms of infection IE: fever, odor, change in color, increased amount of drainage, purulent drainage, warmth. Problem:Infection Prevention Goal:Verbalize signs of infection Scheduled Educate Family on Infection Prevention Description: Instructed family on signs and symptoms of infection IE: fever, odor, change in color, increased amount of drainage, purulent drainage, warmth. Problem:Infection Prevention Goal:Verbalize signs of infection Scheduled High Fall Risk Precautions Description: Instruct patient/caregiverwife [...] Precautions/Safety Concerns Goal:Demonstrate fall and safety precautions Scheduled Notification of Complications Description: Instruct patient/caregiver when to notify SN/MD of complications Problem:Knowledge Deficit - Other Disease Process and Management Goal:Understanding of disease process Scheduled Instruct on Disease Process Description: Instruct patient/caregiver on disease process and management PAD, DM, CAD, ILD. Problem:Knowledge Deficit - Other Disease Process and Management Goal:Understanding of disease process Scheduled Instruct on Depression Description: Instruct patient/caregiver on signs/symptoms of depression. Problem:Depression Goal:Demonstrate knowledge of depression Scheduled Assess signs/symptoms of Depression Description: Assess signs/symptoms of depression and emotional well-being. Problem:Depression Goal:Demonstrate knowledge of depression Scheduled Assess depression Description: Assess depression. Problem:Depression Goal:Demonstrate knowledge of depression Scheduled Instruct on pain management techniques Description: Instruct in pharmacologic and nonpharmacologic pain management techniques. Problem:Pain Goal:Report that pain has been reduced or controlled Scheduled Educate on Wound Care Management Description: Instruct patient/caregiver on wound management including: ordered wound care, utilizing clean technique, appropriate hand hygiene, and disposal of dressings. Instruct patient/caregiver on nutrition and hydration needs for altered skin integrity, signs an d symptoms of infection and/or wound deterioration to report to home health agency and or physician. Problem:Wound Education and Management Goal:Knowledgeable of Wound Management Scheduled Perform dressing change Description: Perform dressing change: Site #2 right proximal garcia Skilled Nurse, Physical Therapy and Occupational Therapy to perform dressing change as of 06/30/25, Frequency 2x/week and PRN for excess drainage or dislodgement of dressing. Wound care as follo ws: cleanse with wound cleanser , apply polymem foam to wound bed, cover with kerlix and secure with tape. Apply ruth wrap loosely from foot to knee over kerlix. Patient and Caregiver to perform wound care in homecare's absence. Transcribed by Junie Galeano RN via [employer] secure chat from Dr.Peter Dooley Date Order Received: 06/30/25 Time: 1415 Problem:Wound Care Goal:Progression towards healing Scheduled Perform dressing change Description: Perform dressing change: Site #4 right lateral foot Skilled Nurse, Physical Therapy and Occupational Therapy to perform dressing change as of 06/30/25, Frequency 2x/week and PRN for excess drainage or dislodgement of dressing. Wound care as follows : cleanse with wound cleanser , apply polymem foam to wound bed, cover with kerlix and secure with tape. Apply ruth wrap loosely from foot to knee over kerlix. Patient and Caregiver to perform wound care in homecare's absence. Transcribed by Brad Galeano RN via [employer] chat from Dr.Peter Dooley Date Order Received: 06/30/25 Time: 141 Problem:Wound Care Goal:Progression towards healing Scheduled Perform dressing change Description: Perform dressing change: Site #5 right medial garcia, Skilled Nurse, Physical Therapy and Occupational Therapy to perform dressing change as of 06/30/25, Frequency 2x/week and PRN for excess drainage or dislodgement of dressing. Wound care as follows : cleanse with wound cleanser , apply polymem foam to wound bed, cover with kerlix and secure with tape. Apply ruth wrap loosely from foot to knee over kerlix. Patient and Caregiver to perform wound care in homecare's absence. Transcribed by Brad Galeano RN via [employer] chat from Dr.Peter Dooley Date Order Received: 06/30/25 Time: 1414 Problem:Wound Care Goal:Progression towards healing Scheduled Perform dressing change Description: Perform dressing change: Site #6 right distal garcia, Skilled Nurse, Physical Therapy and Occupational Therapy to perform dressing change as of 06/30/25, Frequency 2x/week and PRN for excess drainage or dislodgement of dressing. Wound care as follow s: cleanse with wound cleanser , apply polymem foam to wound bed, cover with kerlix and secure with tape. Apply ruth wrap loosely from foot to knee over kerlix. Patient and Caregiver to perform wound care in homecare's absence. Transcribed by Phani Galeano RN via [employer] chat from Dr.Peter Dooley Date Order Received: 06/30/25 Time: 141 Problem:Wound Care Goal:Progression towards healing Scheduled Perform dressing change Description: Perform dressing change: Site #3 right great toe Skilled Nurse, Physical Therapy and Occupational Therapy to perform dressing change as of 06/30/25, Frequency daily and PRN for excess drainage or dislodgement of dressing. Wound care as follows: c leanse with soap and water, pat dry, paint with betadine and allow to dry. Leave open to air or cover with dry dressing. Patient and Caregiver to perform wound care in homecare's absence. Transcribed by Deann Galeano RN via [employer] chat kalpana Dooley Date Order Received: 06/30/25 Time: 141 Problem:Wound Care Goal:Progression towards healing Scheduled Perform dressing change Description: Perform dressing change: Site #7 right 2nd toe Skilled Nurse, Physical Therapy and Occupational Therapy to perform dressing change as of 06/30/25, Frequency daily and PRN for excess drainage or dislodgement of dressing. Wound care as follows: estela anse with soap and water, pat dry, paint with betadine and allow to dry. Leave open to air or cover with dry dressing. Patient and Caregiver to perform wound care in homecare's absence. Transcribed by Deann Galeano RN via [employer] chat from Dr.Peter Dooley Date Order Received: 06/30/25 Time: 1414 Problem:Wound Care Goal:Progression towards healing Scheduled Perform dressing change Description: Perform dressing change: Site #8 right 3rd toe Skilled Nurse, Physical Therapy and Occupational Therapy to perform dressing change as of 06/30/25, Frequency daily and PRN for excess drainage or dislodgement of dressing. Wound care as follows: estela anse with soap and water, pat dry, paint with betadine and allow to dry. Leave open to air or cover with dry dressing. Patient and Caregiver to perform wound care in homecare's absence. Transcribed by Deann Galeano RN via [employer] chat from Dr.Peter Dooley Date Order Received: 06/30/25 Time: 1414 Problem:Wound Care Goal:Progression towards healing Scheduled Perform dressing change Description: Perform dressing change: Site #9 right 4th toe Skilled Nurse, Physical Therapy and Occupational Therapy to perform dressing change as of 06/30/25, Frequency daily and PRN for excess drainage or dislodgement of dressing. Wound care as follows: estela anse with soap and water, pat dry, paint with betadine and allow to dry. Leave open to air or cover with dry dressing. Patient and Caregiver to perform wound care in homecare's absence. Transcribed by Deann Galeano RN via [employer] chat from Dr.Peter Dooley Date Order Received: 06/30/25 Time: 141 Problem:Wound Care Goal:Progression towards healing Scheduled Perform dressing change Description: Perform dressing change: Site #10 L forearm, Skilled Nurse, Caregiver, Physical Therapy, Occupational Therapy, Patient and Other Blanca to perform dressing change as of 07/01/25, Frequency 3 x week and PRN for excess drainage or dislodgement of dres sing. Wound care as follows: cleanse with normal saline , apply MINISTERIO to wound bed , cover with adhesive foam. Patient and Caregiver Blanca to perform wound care in homecare's absence. VORB by Jose Akbar RN from Dr. Dooley, Amauri Flores MD via [employer] Date Order Received: 07/01/25 Time: 5:30pm Problem:Wound Care Goal:Progression towards healing Scheduled Instruct on Pressure Prevention Description: Instruct patient/caregiver on inspecting the skin regularly for signs of impaired skin integrity, repositioning the patient on an individualized schedule according to the patient's tissue tolerance, skin condition, mobility, medical condition, and treatm ent goals. Avoid vigorous massage and emphasize the importance of increasing activity and mobility. For chairbound patients instruct on repositioning frequently Avoid using donut-shaped devices and foam cutouts for pressure redistribution. Deter mine if patient is using or needs a pressure reduction surface. Instruct patient/caregiver on using moisture barriers and absorbent pads/briefs as needed, avoiding prolonged skin contact with wet materials, and cleaning and drying skin thoroughly after incontinence episodes. If patient is malnourished instruct patient/caregiver on physician ordered diet, increased fluid intake if not contraindicated, and a list of possible protein sources to promote skin integrity. Problem:Pressure Prevention Goal:Prevent development of pressure injuries Scheduled documented in this encounter Care Teams Quality Control Manager Relationship Specialty Start Date End Date Harjeet Cintron MD [address] [place] [address] PCP - General 01/20/24 Amando Cintron MD Surgeon Vascular Surgery 08/25/21 documented as of this encounter
--- OUTSIDE RECORDS SUMMARY | 2025-07-16 14:00 | XMS_ITS | Encounter Summary ---
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 Never 05/11/2023 Do you belong to any clubs o r organizations such as yazidism groups, unions, fraternal or athletic groups, or [...] on file Legal Sex Male 1:17 AM BUILDING EQUIPMENT OPERATOR Gender Identity Not on file Sexual [...] take, when to call CM or provider. [facility] Chronic Pain Care Plan Chronic Care Management No change(09/20 9:23 AM BUILDING EQUIPMENT OPERATOR) No Marla Sheppard, RN Note: Problem: Chronic [...] Details Visit Type -SN Home Visit Discipline -Nursing Home Problems Problem Description Start Date Status Goals Interve ntions Medications Disciplines: Nursing Home Management of home medications 06/29/2025 Active 1 goal linked to scheduled/documen yaya intervention 2 goal interventions scheduled/documen yaya in this visit Oxygen Safety Education Disciplines: Skilled Disciplines Oxygen Safety Education 06/29/2025 Active 1 goal linked to scheduled/documen yaya intervention 1 goal intervention scheduled/documen yaya in this visit Monitor patient's vital signs every home health visit Disciplines: Skilled Disciplines, SN, PT, OT, DATABASE MARKETING ANALYST, DIRECTOR OF RETAIL MARKETING Monitor patient's vital signs every home health [...] Disciplines Wound care needed #5 right medial gracia 06/30/2025 Active 1 goal linked to scheduled/documen [...] visit during episode of care Description: Home angle dozer operator to measure vital signs during every [...] Prevent development of pressure injuries Description: terminal manager goal: The patient will maintain intact skin [...] of portable tanks. Instruct patient to call [employer] with oxygen issues or malfunctions. Problem:Oxygen Safety [...] absence. Transcribed by Junie Galeano RN via [employer] secure chat from Dr.Peter Dooley Date Order [...] absence. Transcribed by Brad Galeano RN via [employer] chat from Dr.Peter Dooley Date Order Received: [...] absence. Transcribed by Brad Galeano RN via [employer] chat from Dr.Peter Dooley Date Order Received: 06/30/25 Time: 1414 Problem:Wound Care Goal:Progression towards healing Scheduled Perform dressing change Description: Perform dressing change: Site #6 right distal agrcia, Skilled Nurse, Physical Therapy and Occupational Therapy [...] absence. Transcribed by Phani Galeano RN via [employer] chat from Dr.Peter Dooley Date Order Received: [...] absence. Transcribed by Deann Galeano RN via [employer] chat kalpana Dooley Date Order Received: 06/30/25 [...] absence. Transcribed by Deann Galeano RN via [employer] chat from Dr.Peter Dooley Date Order Received: [...] absence. Transcribed by Deann Galeano RN via [employer] chat from Dr.Peter Dooley Date Order Received: [...] absence. Transcribed by Deann Galeano RN via [employer] chat from Dr.Peter Dooley Date Order Received: [...] from Dr. Dooley, Amauri Flores MD via [employer] Date Order Received: 07/01/25 Time: 5:30pm Problem:Wound [...] Scheduled documented in this encounter Care Teams Technical Fellow Relationship Specialty Start Date End Date Harjeet Cintron MD [address] [place] [address] PCP - General 01/20/24 Amando Cintron MD Surgeon Vascular Surgery 08/25/21 documented as of this encounter
--- OUTSIDE RECORDS SUMMARY | 2025-07-16 15:50 | XMS_ITS | Encounter Summary ---
Author Organization [facility] Healthcare Address [address] [place] [address] Care Team Providers Care Stone Cleaner Name Role Phone Amando Cintron MD Unavailable Alfredo Negron MD Primary Care Provide r Angélica Boyd RN Unavailable Unavailable Harjeet Cintron MD Primary Care Prov ider Encounter Details Date Type Department Care Team (Late st Contact Info) Description 03/28/2023 Telephone [facility] Primary Care Medicine Clinic [address] [facility] [address] [place] [address] Alfredo Negron MD [address] [place] [address] Social History Tobacco Use Types [...] often do you attend chur ch or restorationist services? Never 01/23/2023 Do you belong to any clubs o r organizations such as oriental orthodox groups, unions, fraternal or athletic groups, or [...] place to sleep or slept in a long term (including now)? No 01/23/2023 Sex and Gender Information Value Date Recorded Sex Assigned at Not on file Legal Sex Male 1:17 AM HIM MANAGER Gender Identity Not on file Sexual Orientation [...] take, when to call CM or provider. [facility] Chronic Pain Care Plan Chronic Care Management No change(09/20 9:23 AM HIM MANAGER) No Marla Sheppard RN Note: Problem: Chronic [...] on filedocumented in this encounter Care Teams Stone Cleaner Relationship Specialty Start Date End Date Alfredo Negron MD PCP - General Internal Medicine 10/28/21 01/19/24 Harjeet Cintron MD 1 [place] [address] PCP - General 01/20/24 Amando Cintron MD Surgeon Vascular Surgery 08/25/21 Angélica Boyd, BARTOLOME Registered Nurse Pulmonary Disease 02/09/22 11/08/24 documented as of this encounter
--- OUTSIDE RECORDS SUMMARY | 2025-07-16 15:50 | XMS_ITS | Encounter Summary ---
Author Organization [facility] Address [address] [place] [address] Phone Care Team Providers Care High Pressure Cleaner Name Role Phone Sorin Santos MD Primary Care Provider Alfredo Negron MD Primary Care Provide r Amando Cintron MD Unavailable [phone] Sorin Santos MD Primary Care Provider Alfredo Negron MD Primary Care Provide r Angélica Boyd RN Unavailable Unavailable Rosalva Prince RN Unavailable [phone] Nisha Lepe RN Unavailable [phone] Harjeet Cintron MD Primary Care Prov ider Encounter Details Date Type Department Care Team (Latest Contact Info) Description 04/21/2020 Orders Only [facility] Scanning, Provider Social History Tobacco [...] on file Legal Sex Male 1:17 AM FACULTY MEMBER Gender Identity Not on file Sexual Orientation [...] (rather than stopping them without telling anyone). [facility] Chronic Pain Care Plan Chronic Care Management No change(09/20 9:23 AM FACULTY MEMBER) No Marla Sheppard RN Note: Problem: Chronic [...] documented as of this encounter Care Teams High Pressure Cleaner Relationship Specialty Start Date End Date Sorin Santos MD [address] [address] PCP - General Internal Medicine 01/22/19 01/15/21 Alfredo Negron MD [address] [address] PCP - General 01/16/21 10/26/21 Sorin Santos MD [address] [address] PCP - General 10/27/21 10/27/21 Alfredo Negron MD [address] [address] PCP - General Internal Medicine 10/28/21 01/19/24 Harjeet Cintron MD 1 [place] [address] PCP - General 01/20/24 Amando Cintron MD 1 [facility] [address] [place] [address] Surgeon Vascular Surgery 08/25/21 Angélica Boyd RN Registered Nurse Pulmonary Disease 02/09/22 11/08/24 Rosalva Prince, BARTOLOME [address] [facility] [address] [place] [address] SHOP Outpatient Fixture Builder 01/03/23 01/15/23 Nisha Lepe RN [address] [place] [address] [address] [place] [address] Sole Skiver 01/21/23 02/16/23 documented as of this encounter
--- OUTSIDE RECORDS SUMMARY | 2025-07-16 15:50 | XMS_ITS | Encounter Summary ---
Author Organization [facility] Healthcare Address [address] [place] [address] Care Team Providers Care Communications Tech Name Role Phone Amando Cintron MD Unavailable Alfredo Negron MD Primary Care Provide r Angélica Boyd RN Unavailable Unavailable Harjeet Cintron MD Primary Care Prov ider Encounter Details Date Type Department Care Team (Late st Contact Info) Description 06/07/2023 Telephone [facility] Primary Care Medicine Clinic [address] [facility] [address] [place] [address] Alfredo Negron MD [address] [place] [address] Social History Tobacco Use Types [...] place to sleep or slept in a prison (including now)? No 05/11/2023 Personal Safety Answer Date Recorded Have you ever been in or are you currently in a harmful physical or emotional relationship or is someone making you feel afraid or unsafe? Denies 05/10/2023 Sex and Gender Information Value Date Recorded Sex Assigned at Not on file Legal Sex Male 1:17 AM ACADEMIC ADVISER Gender Identity Not on file Sexual Orientation [...] take, when to call CM or provider. [facility] Chronic Pain Care Plan Chronic Care Management No change(09/20 9:23 AM ACADEMIC ADVISER) Marla Mcdaniel RN Note: Problem: Chronic Pain// ABD pain, legs Goals: 1. Minimize further functional decline 2. Maximize quality of life 3. Control pain Strategies: - Activity/exercise program recommendation - Conservative stepwise pain medicine strategy with multi-disciplinary approach - Recommend healthy lifestyle strategies and compensatory methods as needed documented as of this encounter Visit Diagnoses Not on filedocumented in this encounter Care Teams Communications Tech Relationship Specialty Start Date End Date Alfredo Negron MD PCP - General Internal Medicine 10/28/21 01/19/24 Harjeet Cintron MD 1 [place] [address] PCP - General 01/20/24 Amando Cintron MD Surgeon Vascular Surgery 08/25/21 Angélica Boyd, RN Registered Nurse Pulmonary Disease 02/09/22 11/08/24 documented as of this encounter
--- OUTSIDE RECORDS SUMMARY | 2025-07-16 15:50 | XMS_ITS | Encounter Summary ---
Author Organization [facility] Healthcare Address [address] [place] [address] Care Team Providers Care Teachers' Aide Name Role Phone Amando Cintron MD Unavailable Alfredo Negron MD Primary Care Provide r Angélica Boyd RN Unavailable Unavailable Rosalva Prince RN Unavailable Nisha Lepe RN Unavailable [phone] Harjeet Cintron MD Primary Care Prov ider Encounter Details Date Type Department Care Team (Late st Contact Info) Description 05/03/2022 Telephone [facility] Primary Care Medicine Clinic [address] [facility] [address] [place] [address] Alfredo Negron MD [address] [facility] [address] [place] [address] Social History Tobacco Use Types Packs/Day Years [...] on file Legal Sex Male 1:17 AM 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 [facility] Chronic Pain Care Plan Chronic Care Management No change(09/20 9:23 AM MOLD BLOWER) Marla Mcdaniel RN Note: Problem: Chronic Pain// [...] documented as of this encounter Care Teams Teachers' Aide Relationship Specialty Start Date End Date Alfredo Negron MD PCP - General Internal Medicine 10/28/21 01/19/24 Harjeet Cintron MD 1 [place] [address] PCP - General 01/20/24 Amando Cintron MD Surgeon Vascular Surgery 08/25/21 Angélica Boyd RN Registered Nurse Pulmonary Disease 02/09/22 11/08/24 Rosalva Prince RN [address] [facility] [address] [place] [address] SHOP Outpatient Java Spring Developer 01/03/23 01/15/23 Nisha Lepe, BARTOLOME [address] [place] [address] [address] [place] [address] Packing Machine Operator 01/21/23 02/16/23 documented as of this encounter
--- OUTSIDE RECORDS SUMMARY | 2025-07-16 15:50 | XMS_ITS | Encounter Summary ---
Author Organization [facility] Healthcare Address [address] [place] [address] Care Team Providers Care Limited Radiology Technician Name Role Phone Amando Cintorn MD Unavailable Alfredo Negron MD Primary Care Provide r Angélica Boyd RN Unavailable Unavailable Rosalva Prince RN Unavailable [phone] Nisha Lepe RN Unavailable [phone] Harjeet Cintron MD Primary Care Prov ider Encounter Details Date Type Department Care Team (Late st Contact Info) Description 06/16/2022 Telephone [facility] Primary Care Medicine Clinic [address] [place] [address] Alfredo Negron MD [address] [facility] [address] [place] [address] Social History Tobacco Use Types Packs/Day Years [...] on file Legal Sex Male 1:17 AM 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 [facility] Chronic Pain Care Plan Chronic Care Management No change(09/20 9:23 AM BODY AND FENDER MECHANIC APPRENTICE) Marla Mcdaniel RN Note: Problem: Chronic Pain// [...] documented as of this encounter Care Teams Limited Radiology Technician Relationship Specialty Start Date End Date Alfredo Negron MD PCP - General Internal Medicine 10/28/21 01/19/24 Harjeet Cintron MD 1 [place] [address] PCP - General 01/20/24 Amando Cintron MD Surgeon Vascular Surgery 08/25/21 Angélica Boyd RN Registered Nurse Pulmonary Disease 02/09/22 11/08/24 Rosalva Prince RN [address] [facility] [address] [place] [address] SHOP Outpatient Jewelry Inspector 01/03/23 01/15/23 Nisha Lepe, BARTOLOME [address] [place] [address] [address] [place] [address] Military Equipment Specialist 01/21/23 02/16/23 documented as of this encounter
--- OUTSIDE RECORDS SUMMARY | 2025-07-16 15:50 | XMS_ITS | Encounter Summary ---
Author Organization [facility] Healthcare Address [address] [place] [address] Care Team Providers Care Hairspring Assembler Name Role Phone Amando Cintron MD Unavailable Alfredo Negron MD Primary Care Provide r Angélica Boyd RN Unavailable Unavailable Rosalva Prince RN Unavailable [phone] Nisha Lepe RN Unavailable Harjeet Cintron MD Primary Care Prov ider Encounter Details Date Type Department Care Team (Late st Contact Info) Description 01/14/[address] [address] Gilson Moeller RN Social History Tobacco Use [...] on file Legal Sex Male 1:17 AM CLIENT DEVELOPMENT CONSULTANT Gender Identity Not on file Sexual Orientation [...] Diagnosis 15 01/14/2023 8:00 AM Tiffany Rodriguez, computer technologist Aids 15 01/14/2023 8:00 AM Tiffany Alejandra [...] of Assistance Moderate assist 01/14/2023 9:00 AM iTffany Frank, BARTOLOME Toileting: Assistance with Perineal hygiene [...] Neuro (WDL) X 01/14/2023 11:20 AM CDT [facility] Tiffany berkowitz RN documented in this encounter [...] Chronic Care Management No change(09/20 9:23 AM CLIENT DEVELOPMENT CONSULTANT) No Marla Sheppard RN Note: Problem: Chronic [...] on filedocumented in this encounter Care Teams Hairspring Assembler Relationship Specialty Start Date End Date Alfredo Negron MD PCP - General Internal Medicine 10/28/21 01/19/24 Harjeet Cintron MD 1 [place] [address] PCP - General 01/20/24 Amando Cintron MD Surgeon Vascular Surgery 08/25/21 Angélica Boyd RN Registered Nurse Pulmonary Disease 02/09/22 11/08/24 Rosalva Prince, RN [address] [facility] [address] [place] [address] SHOP Outpatient Avionics Engineer 01/03/23 01/15/23 Nisha Lepe, BARTOLOME [address] [place] [address] [address] [place] [address] Pe Teacher 01/21/23 02/16/23 documented as of this encounter
--- OUTSIDE RECORDS SUMMARY | 2025-07-16 15:50 | XMS_ITS | Encounter Summary ---
Author Organization [facility] Healthcare Address [address] [place] [address] Care Team Providers Care Decal Transferrer Name Role Phone Amando Cintron MD Unavailable Alfredo Negron MD Primary Care Provide r Angélica Boyd RN Unavailable Unavailable Harjeet Cintron MD Primary Care Prov ider Encounter Details Date Type Department Care Team (Late st Contact Info) Description 03/30/2023 Telephone [facility] Primary Care Medicine Clinic [address] [facility] [address] [place] [address] Alfredo Negron MD [address] [place] [address] Social History Tobacco Use Types [...] often do you attend chur ch or evangelical services? Never 01/23/2023 Do you belong to any clubs o r organizations such as holiness groups, unions, fraternal or athletic groups, or [...] place to sleep or slept in a fci (including now)? No 01/23/2023 Sex and Gender Information Value Date Recorded Sex Assigned at Not on file Legal Sex Male 1:17 AM SCROLL MACHINE OPERATOR Gender Identity Not on file Sexual [...] Chronic Care Management No change(09/20 9:23 AM SCROLL MACHINE OPERATOR) No Marla Sheppard RN Note: Problem: Chronic [...] on filedocumented in this encounter Care Teams Decal Transferrer Relationship Specialty Start Date End Date Alfredo Negron MD PCP - General Internal Medicine 10/28/21 01/19/24 Harjeet Cintron MD 1 [place] [address] PCP - General 01/20/24 Amando Cintron MD Surgeon Vascular Surgery 08/25/21 Angélica Boyd, BARTOLOME Registered Nurse Pulmonary Disease 02/09/22 11/08/24 documented as of this encounter
--- OUTSIDE RECORDS SUMMARY | 2025-07-16 15:50 | XMS_ITS | Encounter Summary ---
Author Organization [facility] Address [address] [place] [address] Phone Care Team Providers Care Firewall Administrator Name Role Phone Sorin Santos MD Primary Care Provider Alfredo Negron MD Primary Care Provide r Amando Cintron MD Unavailable [phone] Sorin Santos MD Primary Care Provider Alfredo Negron MD Primary Care Provide r Angélica Boyd RN Unavailable Unavailable Rosalva Prince RN Unavailable Nisha Lepe RN Unavailable [phone] Harjeet Cintron MD Primary Care Prov ider [...] on file Legal Sex Male 1:17 AM 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 [facility] Chronic Pain Care Plan Chronic Care Management No change(09/20 9:23 AM ASSEMBLY TECHNICIAN) No Marla Sheppard RN Note: Problem: Chronic [...] documented as of this encounter Care Teams Firewall Administrator Relationship Specialty Start Date End Date Sorin Santos MD [address] [address] PCP - General Internal Medicine 01/22/19 01/15/21 Alfredo Negron MD [address] [address] PCP - General 01/16/21 10/26/21 Sorin Santos MD [address] [address] PCP - General 10/27/21 10/27/21 Alfredo Negron MD 1 [facility] [address] [place] [address] PCP - General Internal Medicine 10/28/21 01/19/24 Harjeet Cintron MD 1 [place] [address] PCP - General 01/20/24 Amando Cintron MD 1 [facility] [address] [place] [address] Surgeon Vascular Surgery 08/25/21 Angélica Boyd RN Registered Nurse Pulmonary Disease 02/09/22 11/08/24 Rosalva Prince, RN [address] [facility] [address] [place] [address] SHOP Outpatient Value Stream Leader 01/03/23 01/15/23 Nisha Lepe RN [address] [place] [address] [address] [place] [address] Blender Conveyor Operator 01/21/23 02/16/23 documented as of this encounter
--- OUTSIDE RECORDS SUMMARY | 2025-07-16 15:50 | XMS_ITS | Encounter Summary ---
Author Organization [facility] Healthcare Address [address] [place] [address] Care Team Providers Care Seed Technician Name Role Phone Amando Cintron MD Unavailable Alfredo Negron MD Primary Care Provide r Angélica Boyd RN Unavailable Unavailable Rosalva Prince RN Unavailable [phone] Nisha Lepe RN Unavailable Harjeet Cintron MD Primary Care Prov ider Encounter Details Date Type Department Care Team (Late st Contact Info) Description 03/22/2022 Telephone [facility] Primary Care Medicine Clinic [address] [place] [address] Alfredo Negron MD [address] [facility] [address] [place] [address] Social History Tobacco Use Types Packs/Day Years [...] on file Legal Sex Male 1:17 AM SPREADER Gender Identity Not on file Sexual Orientation [...] (rather than stopping them without telling anyone). [facility] Chronic Pain Care Plan Chronic Care Management No change(09/20 9:23 AM SPREADER) Marla Mcdaniel RN Note: Problem: Chronic Pain// [...] documented as of this encounter Care Teams Seed Technician Relationship Specialty Start Date End Date Alfredo Negron MD PCP - General Internal Medicine 10/28/21 01/19/24 Harjeet Cintron MD 1 [place] [address] PCP - General 01/20/24 Amando Cintron MD Surgeon Vascular Surgery 08/25/21 Angélica Boyd RN Registered Nurse Pulmonary Disease 02/09/22 11/08/24 Rosalva Prince RN [address] [facility] [address] [place] [address] SHOP Outpatient Assistant Professor Of Art 01/03/23 01/15/23 Nisha Lepe, BARTOLOME [address] [place] [address] [address] [place] [address] Datastage Architect 01/21/23 02/16/23 documented as of this encounter
--- OUTSIDE RECORDS SUMMARY | 2025-07-16 15:50 | XMS_ITS | Encounter Summary ---
Author Organization [facility] Address [address] [place] [address] Phone Care Team Providers Care Teaching Assistant Name Role Phone Sorin Santos MD Primary Care Provider Alfredo Negron MD Primary Care Provide r Amando Cintron MD Unavailable [phone] Sorin Santos MD Primary Care Provider Alfredo Negron MD Primary Care Provide r Angélica Boyd RN Unavailable Unavailable Rosalva Prince RN Unavailable [phone] Nisha Lepe RN Unavailable [phone] Harjeet Cintron MD Primary Care Prov ider [...] on file Legal Sex Male 1:17 AM GROUND SOURCE HEAT PUMP TECHNICIAN Gender Identity Not on file Sexual [...] (rather than stopping them without telling anyone). [facility] Chronic Pain Care Plan Chronic Care Management No change(09/20 9:23 AM GROUND SOURCE HEAT PUMP TECHNICIAN) No Marla Sheppard RN Note: Problem: [...] documented as of this encounter Care Teams Teaching Assistant Relationship Specialty Start Date End Date Sorin Santos MD [address] [address] PCP - General Internal Medicine 01/22/19 01/15/21 Alfredo Negron MD [address] [address] PCP - General 01/16/21 10/26/21 Sorin Santos MD [address] [address] PCP - General 10/27/21 10/27/21 Alfredo Negron MD [address] [address] PCP - General Internal Medicine 10/28/21 01/19/24 Harjeet Cintron MD 1 [place] [address] PCP - General 01/20/24 Amando Cintron MD 1 [facility] [address] [place] [address] Surgeon Vascular Surgery 08/25/21 Angélica Boyd RN Registered Nurse Pulmonary Disease 02/09/22 11/08/24 Rosalva Prince, BARTOLOME [address] [facility] [address] [place] [address] SHOP Outpatient Mammography Technologist 01/03/23 01/15/23 Nisha Lepe RN [address] [place] [address] [address] [place] [address] Pay Station Collector 01/21/23 02/16/23 documented as of this encounter
--- OUTSIDE RECORDS SUMMARY | 2025-07-16 15:50 | XMS_ITS | Encounter Summary ---
Author Organization [facility] Healthcare Address [address] [place] [address] Care Team Providers Care Stator Connector Name Role Phone Amando Cintron MD Unavailable Alfredo Negron MD Primary Care Provide r Angélica Boyd RN Unavailable Unavailable Harjeet Cintron MD Primary Care Prov ider Encounter Details Date Type Department Care Team (Late st Contact Info) Description 08/04/2023 Telephone [facility] Primary Care Medicine Clinic [address] [facility] [address] [place] [address] Alfredo Negron MD [address] [place] [address] Social History Tobacco Use Types [...] week 05/11/2023 How often do you attend [facility] or scientologist services? 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 [facility] Chronic Pain Care Plan Chronic Care Management No change(09/20 9:23 AM HEALTH AND SOCIAL CARE TEACHER) Marla Mcdaniel RN Note: Problem: Chronic Pain// ABD pain, legs Goals: 1. Minimize further functional decline 2. Maximize quality of life 3. Control pain Strategies: - Activity/exercise program recommendation - Conservative stepwise pain medicine strategy with multi-disciplinary approach - Recommend healthy lifestyle strategies and compensatory methods as needed documented as of this encounter Visit Diagnoses Not on filedocumented in this encounter Care Teams Stator Connector Relationship Specialty Start Date End Date Alfredo Negron MD PCP - General Internal Medicine 10/28/21 01/19/24 Harjeet Cintron MD 1 [place] [address] PCP - General 01/20/24 Amando Cintron MD Surgeon Vascular Surgery 08/25/21 Angélica Boyd, RN Registered Nurse Pulmonary Disease 02/09/22 11/08/24 documented as of this encounter
--- OUTSIDE RECORDS SUMMARY | 2025-07-16 15:50 | XMS_ITS | Encounter Summary ---
Author Organization [facility] Healthcare Address [address] [place] [address] Care Team Providers Care Social Worker Aide Name Role Phone Amando Cintron MD Unavailable Alfredo Negron MD Primary Care Provide r Angélica Boyd RN Unavailable Unavailable Harjeet Cintron MD Primary Care Prov ider Encounter Details Date Type Department Care Team (Late st Contact Info) Description 03/15/2023 Telephone [facility] Primary Care Medicine Clinic [address] [facility] [address] [place] [address] Alfredo Negron MD [address] [place] [address] Social History Tobacco Use Types [...] often do you attend chur ch or religion services? Never 01/23/2023 Do you belong to [...] place to sleep or slept in a assisted (including now)? No 01/23/2023 Sex and Gender Information Value Date Recorded Sex Assigned at Not on file Legal Sex Male 1:17 AM PULLEY WORKER Gender Identity Not on file Sexual [...] when to call CM or provider. [facility] Chronic Pain Care Plan Chronic Care Management No change(09/20 9:23 AM PULLEY WORKER) No Marla Sheppard RN Note: Problem: Chronic [...] on filedocumented in this encounter Care Teams Social Worker Aide Relationship Specialty Start Date End Date Alfredo Negron MD PCP - General Internal Medicine 10/28/21 01/19/24 Harjeet Cintron MD 1 [place] [address] PCP - General 01/20/24 Amando Cintron MD Surgeon Vascular Surgery 08/25/21 Angélica Boyd, BARTOLOME Registered Nurse Pulmonary Disease 02/09/22 11/08/24 documented as of this encounter
--- OUTSIDE RECORDS SUMMARY | 2025-07-16 15:50 | XMS_ITS | Encounter Summary ---
Author Organization [facility] Healthcare Address [address] [place] [address] Care Team Providers Care Restorative Rehab Aide Name Role Phone Amando Cintron MD Unavailable [phone] Alfredo Negron MD Primary Care Provide r Angélica Boyd RN Unavailable Unavailable Rosalva Prince RN Unavailable [phone] Nisha Lepe RN Unavailable Harjeet Cintron MD Primary Care Prov ider Encounter Details Date Type Department Care Team (Late st Contact Info) Description 12/21/2021 Telephone [facility] [address] [facility] [address] [place] [address] Alfredo Negron MD [address] [facility] [address] [place] [address] Social History Tobacco Use Types Packs/Day Years [...] on file Legal Sex Male 1:17 AM 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 DESIGN 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 Gender Identity Not on file Sexual [...] Chronic Care Management No change(09/20 9:23 AM EXPERIENCE DESIGN DIRECTOR) No Marla Sheppard RN Note: Problem: [...] documented as of this encounter Care Teams Restorative Rehab Aide Relationship Specialty Start Date End Date Alfredo Negron MD PCP - General Internal Medicine 10/28/21 01/19/24 Harjeet Cintron MD [address] [place] [address] PCP - General 01/20/24 Amando Cintron MD Surgeon Vascular Surgery 08/25/21 Angélica Boyd RN Registered Nurse Pulmonary Disease 02/09/22 11/08/24 Rosalva Prince RN [address] [facility] [address] [place] [address] SHOP Outpatient Human Resources Office Manager 01/03/23 01/15/23 Nisha Lepe, BARTOLOME [address] [place] [address] [address] [place], [place] [id number] Factory Hand 01/21/23 02/16/23 documented as of this encounter
--- OUTSIDE RECORDS SUMMARY | 2025-07-16 15:50 | XMS_ITS | Encounter Summary ---
Author Organization [facility] Healthcare Address [address] [place] [address] Care Team Providers Care Commodity Broker Name Role Phone Amando Cintron MD Unavailable Alfredo Negron MD Primary Care Provide r Angélica Boyd RN Unavailable Unavailable Harjeet Cintron MD Primary Care Prov ider Encounter Details Date Type Department Care Team (Late st Contact Info) Description 02/27/2023 Telephone [facility] Primary Care Medicine Clinic [address] [facility] [address] [place] [address] Alfredo Negron MD [address] [place] [address] Social History Tobacco Use Types [...] often do you attend chur ch or synagogue services? Never 01/23/2023 Do you belong to any clubs o r organizations such as bahai groups, unions, fraternal or athletic groups, or [...] place to sleep or slept in a retirement (including now)? No 01/23/2023 Sex and Gender Information Value Date Recorded Sex Assigned at Not on file Legal Sex Male 1:17 AM HEALTH PROFESSIONAL Gender Identity Not on file Sexual Orientation [...] take, when to call CM or provider. [facility] Chronic Pain Care Plan Chronic Care Management No change(09/20 9:23 AM HEALTH PROFESSIONAL) Marla Mcdaniel RN Note: Problem: Chronic Pain// ABD pain, legs Goals: 1. Minimize further functional decline 2. Maximize quality of life 3. Control pain Strategies: - Activity/exercise program recommendation - Conservative stepwise pain medicine strategy with multi-disciplinary approach - Recommend healthy lifestyle strategies and compensatory methods as needed documented as of this encounter Visit Diagnoses Not on filedocumented in this encounter Care Teams Commodity Broker Relationship Specialty Start Date End Date Alfredo Negron MD PCP - General Internal Medicine 10/28/21 01/19/24 Harjeet Cintron MD 1 [place] [address] PCP - General 01/20/24 Amando Cintron MD Surgeon Vascular Surgery 08/25/21 Angélica Boyd, RN Registered Nurse Pulmonary Disease 02/09/22 11/08/24 documented as of this encounter
--- OUTSIDE RECORDS SUMMARY | 2025-07-16 15:50 | XMS_ITS | Encounter Summary ---
Author Organization [facility] Healthcare Address [address] [place] [address] Care Team Providers Care Bagging Machine Operator Name Role Phone Amando Cintron MD Unavailable Alfredo Negron MD Primary Care Provide r Angélica Boyd RN Unavailable Unavailable Harjeet Cintron MD Primary Care Prov ider Encounter Details Date Type Department Care Team (Late st Contact Info) Description 04/04/2023 Telephone [facility] Primary Care Medicine Clinic [address] [facility] [address] [place] [address] Alfredo Negron MD [address] [place] [address] Social History Tobacco Use Types [...] often do you attend chur ch or christianity services? Never 01/23/2023 Do you belong to any clubs o r organizations such as baptist groups, unions, fraternal or athletic groups, or [...] file Legal Sex Male 1:17 AM CHIEF SOLUTION ARCHITECT Gender Identity Not on file Sexual Orientation [...] take, when to call CM or provider. [facility] Chronic Pain Care Plan Chronic Care Management No change(09/20 9:23 AM CHIEF SOLUTION ARCHITECT) No Marla Sheppard RN Note: Problem: Chronic [...] on filedocumented in this encounter Care Teams Bagging Machine Operator Relationship Specialty Start Date End Date Alfredo Negron MD PCP - General Internal Medicine 10/28/21 01/19/24 Harjeet Cintron MD [address] [place] [address] PCP - General 01/20/24 Amando Cintron MD Surgeon Vascular Surgery 08/25/21 Angélica Boyd, BARTOLOME Registered Nurse Pulmonary Disease 02/09/22 11/08/24 documented as of this encounter
--- OUTSIDE RECORDS SUMMARY | 2025-07-16 15:50 | XMS_ITS | Encounter Summary ---
Author Organization [facility] Healthcare Address [address] [place] [address] Care Team Providers Care Professional Development Instructor Name Role Phone Amando Cintron MD Unavailable Alfredo Negron MD Primary Care Provide r Angélica Boyd RN Unavailable Unavailable Harjeet Cintron MD Primary Care Prov ider Encounter Details Date Type Department Care Team (Late st Contact Info) Description 06/27/2023 Telephone [facility] Primary Care Medicine Clinic [address] [facility] [address] [place] [address] Alfredo Negron MD [address] [place] [address] Social History Tobacco Use Types [...] any clubs o r organizations such as voodoo groups, unions, fraternal or athletic groups, or [...] place to sleep or slept in a chcf (including now)? No 05/11/2023 Personal Safety Answer Date Recorded Have you ever been in or are you currently in a harmful physical or emotional relationship or is someone making you feel afraid or unsafe? Denies 05/10/2023 Sex and Gender Information Value Date Recorded Sex Assigned at Not on file Legal Sex Male 1:17 AM CENTRIFUGAL SEPARATOR Gender Identity Not on file Sexual Orientation Not on file documented as of this encounter Functional Status * Alcohol Withdrawal BP Hierarchy Answer Date of Assessment Author 58 06/28/2023 10:16 AM CENTRIFUGAL SEPARATOR Isabela Thompson CMA documented as of this [...] Management On track(2022 12:31 PM CDT) No iNsha Lepe, RN Note: Problem: Knowledge deficit related [...] take, when to call CM or provider. [facility] Chronic Pain Care Plan Chronic Care Management No change(09/20 9:23 AM CENTRIFUGAL SEPARATOR) No Marla Sheppard RN Note: Problem: Chronic [...] on filedocumented in this encounter Care Teams Professional Development Instructor Relationship Specialty Start Date End Date Alfredo Negron MD PCP - General Internal Medicine 10/28/21 01/19/24 Harjeet Cintron MD [address] [place] [address] PCP - General 01/20/24 Amando Cintron MD Surgeon Vascular Surgery 08/25/21 Angélica Boyd, BARTOLOME Registered Nurse Pulmonary Disease 02/09/22 11/08/24 documented as of this encounter
--- OUTSIDE RECORDS SUMMARY | 2025-07-16 15:50 | XMS_ITS | Encounter Summary ---
Author Organization [facility] Healthcare Address [address] [place] [address] Care Team Providers Care Refrigeration Mechanic Helper Name Role Phone Amando Cintron MD Unavailable Alfredo Negron MD Primary Care Provide r Angélica Boyd RN Unavailable Unavailable Harjeet Cintron MD Primary Care Prov ider Encounter Details Date Type Department Care Team (Late st Contact Info) Description 06/03/2023 Telephone [facility] Primary Care Medicine Clinic [address] [facility] [address] [place] [address] Alfredo Negron MD [address] [place] [address] Social History Tobacco Use Types [...] any clubs o r organizations such as restoration groups, unions, fraternal or athletic groups, or [...] slept in a fci (including now)? No 05/11/2023 Personal Safety Answer Date Recorded Have you ever been in or are you currently in a harmful physical or emotional relationship or is someone making you feel afraid or unsafe? Denies 05/10/2023 Sex and Gender Information Value Date Recorded Sex Assigned at Not on file Legal Sex Male 1:17 AM BALLISTICS EXPERT FORENSIC Gender Identity Not on file Sexual Orientation Not on file documented as of this encounter Functional Status * BP Location Answer Date of Assessment Author Right arm 06/05/2023 8:29 AM BALLISTICS EXPERT FORENSIC Alicia Good MA * Alcohol Withdrawal BP Hierarchy Answer Date of Assessment Author 39 06/05/2023 8:29 AM BALLISTICS EXPERT FORENSIC Alicia Good MA * BP Location Answer Date of Assessment Author Right arm 06/05/2023 8:29 AM BALLISTICS EXPERT FORENSIC Alicia Good MA documented as of this [...] take, when to call CM or provider. [facility] Chronic Pain Care Plan Chronic Care Management No change(09/20 9:23 AM BALLISTICS EXPERT FORENSIC) No Marla Sheppard RN Note: Problem: Chronic [...] on filedocumented in this encounter Care Teams Refrigeration Mechanic Helper Relationship Specialty Start Date End Date Alfredo Negron MD PCP - General Internal Medicine 10/28/21 01/19/24 Harjeet Cintron MD [address] [place] [address] PCP - General 01/20/24 Amando Cintron MD Surgeon Vascular Surgery 08/25/21 Angélica Boyd, BARTOLOME Registered Nurse Pulmonary Disease 02/09/22 11/08/24 documented as of this encounter
--- OUTSIDE RECORDS SUMMARY | 2025-07-16 15:50 | XMS_ITS | Encounter Summary ---
Author Organization [facility] Healthcare Address [address] [place] [address] Care Team Providers Care Director Of Music Name Role Phone Amando Cintron MD Unavailable Alfredo Negron MD Primary Care Provide r Angélica Boyd RN Unavailable Unavailable Harjeet Cintron MD Primary Care Prov ider Encounter Details Date Type Department Care Team (Late st Contact Info) Description 06/16/2023 Telephone [facility] Primary Care Medicine Clinic [address] [facility] [address] [place] [address] Alfredo Negron MD [address] [place] [address] Social History Tobacco Use Types [...] often do you attend chur ch or oriental orthodox services? Never 05/11/2023 Do you belong to any clubs o r organizations such as orthodox groups, unions, fraternal or athletic groups, [...] on file Legal Sex Male 1:17 AM LEAD ATG DEVELOPER Gender Identity Not on file Sexual Orientation [...] when to call CM or provider. [facility] Chronic Pain Care Plan Chronic Care Management No change(09/20 9:23 AM LEAD ATG DEVELOPER) No Marla Sheppard, BARTOLOME Note: Problem: Chronic [...] on filedocumented in this encounter Care Teams Director Of Music Relationship Specialty Start Date End Date Alfredo Negron MD PCP - General Internal Medicine 10/28/21 01/19/24 Harjeet Cintron MD 1 [place] [address] PCP - General 01/20/24 mAando Cintron MD Surgeon Vascular Surgery 08/25/21 Angélica Boyd, RN Registered Nurse Pulmonary Disease 02/09/22 11/08/24 documented as of this encounter
--- OUTSIDE RECORDS SUMMARY | 2025-07-16 15:50 | XMS_ITS | Encounter Summary ---
Author Organization [facility] Healthcare Address [address] [place] [address] Care Team Providers Care Inventory Audit Clerk Name Role Phone Amando Cintron MD Unavailable Alfredo Negron MD Primary Care Provide r Angélica Boyd RN Unavailable Unavailable Harjeet Cintron MD Primary Care Prov ider Encounter Details Date Type Department Care Team (Late st Contact Info) Description 03/24/2023 Telephone [facility] Primary Care Medicine Clinic [address] [facility] [address] [place] [address] Alfredo Negron MD [address] [place] [address] Social History Tobacco Use Types [...] often do you attend chur ch or muslim services? Never 01/23/2023 Do you belong to any clubs o r organizations such as jainism groups, unions, fraternal or athletic groups, or [...] file Legal Sex Male 1:17 AM HAND BANDER Gender Identity Not on file Sexual Orientation [...] or get rid of a hangover? Eye global account executive? 0 03/24/2023 12:41 PM DEANNAT Alecia Valdovinos [...] RN Reason For Exception(s) not utlized in [facility] 03/24 12:41 PM Soyna Delatorre RN * Alcohol Withdrawal BP Hierarchy [...] RN Reason For Exception(s) not utlized in [facility] 03/24 12:41 PM Sonya Delatorre RN * [...] 2 03/24/2023 12:41 PM Sonya Delatorre, RN AUTOMATIC BRINE MIXER OPERATOR Evaluation Needed 2 03/24/2023 12:41 PM [...] Delatorre RN Patient is in need of AUTOMATIC BRINE MIXER OPERATOR Order: No AUTOMATIC BRINE MIXER OPERATOR order needed from this assessment 03/24/2023 12:41 PM Sonya Delatorre RN documented as of this encounter Plan of Treatment Scheduled Procedures Name Priority Associated Diagnoses Date/Ti ga COLONOSCOPY Iron deficiency anemia, unspecified iron deficiency [...] take, when to call CM or provider. [facility] Chronic Pain Care Plan Chronic Care Management No change(09/20 9:23 AM HAND BANDER) No Marla Sheppard RN Note: Problem: Chronic [...] on filedocumented in this encounter Care Teams Inventory Audit Clerk Relationship Specialty Start Date End Date Alfredo Negron MD PCP - General Internal Medicine 10/28/21 01/19/24 Harjeet Cintron MD [address] [place] [address] PCP - General 01/20/24 Amando Cintron MD Surgeon Vascular Surgery 08/25/21 Angélica Boyd, BARTOLOME Registered Nurse Pulmonary Disease 02/09/22 11/08/24 documented as of this encounter
--- OUTSIDE RECORDS SUMMARY | 2025-07-16 15:50 | XMS_ITS | Encounter Summary ---
Author Organization [facility] Healthcare Address [address] [place] [address] Care Team Providers Care Scrap Materials Buyer Name Role Phone Amando Cintron MD Unavailable Alfredo Negron MD Primary Care Provide r Angélica Boyd RN Unavailable Unavailable Harjeet Cintron MD Primary Care Prov ider Encounter Details Date Type Department Care Team (Late st Contact Info) Description 06/06/2023 Telephone [facility] Primary Care Medicine Clinic [address] [facility] [address] [place] [address] Alfredo Negron MD [address] [place] [address] Social History Tobacco Use Types [...] often do you attend chur ch or yazidi services? Never 05/11/2023 Do you belong to [...] on file Legal Sex Male 1:17 AM SENIOR CONTRACTS MANAGER Gender Identity Not on file Sexual [...] when to call CM or provider. [facility] Chronic Pain Care Plan Chronic Care Management No change(09/20 9:23 AM SENIOR CONTRACTS MANAGER) Marla Mcdaniel RN Note: Problem: Chronic Pain// ABD pain, legs Goals: 1. Minimize further functional decline 2. Maximize quality of life 3. Control pain Strategies: - Activity/exercise program recommendation - Conservative stepwise pain medicine strategy with multi-disciplinary approach - Recommend healthy lifestyle strategies and compensatory methods as needed documented as of this encounter Visit Diagnoses Not on filedocumented in this encounter Care Teams Scrap Materials Buyer Relationship Specialty Start Date End Date Alfredo Negron MD PCP - General Internal Medicine 10/28/21 01/19/24 Harjeet Cintron MD 1 [place] [address] PCP - General 01/20/24 Amando Cintron MD Surgeon Vascular Surgery 08/25/21 Angélica Boyd, RN Registered Nurse Pulmonary Disease 02/09/22 11/08/24 documented as of this encounter
--- OUTSIDE RECORDS SUMMARY | 2025-07-16 15:51 | XMS_ITS | Encounter Summary ---
Author Organization [facility] Healthcare Address [address] [place] [address] Care Team Providers Care Warp Worker Name Role Phone Amando Cintron MD Unavailable Alfredo Negron MD Primary Care Provide r Angélica Boyd RN Unavailable Unavailable Harjeet Cintron MD Primary Care Prov ider Encounter Details Date Type Department Care Team (Late st Contact Info) Description 03/10/2023 Telephone [facility] Primary Care Medicine Clinic [address] [place] [address] Alfredo Negron MD [address] [place] [address] Social History Tobacco Use Types [...] often do you attend chur ch or mormon services? Never 01/23/2023 Do you belong to any clubs o r organizations such as evangelical groups, unions, fraternal or athletic groups, or [...] on file Legal Sex Male 1:17 AM PRINCIPAL QUALITY ENGINEER Gender Identity Not on file Sexual [...] take, when to call CM or provider. [facility] Chronic Pain Care Plan Chronic Care Management No change(09/20 9:23 AM PRINCIPAL QUALITY ENGINEER) No Marla Sheppard RN Note: Problem: Chronic [...] on filedocumented in this encounter Care Teams Warp Worker Relationship Specialty Start Date End Date Alfredo Negron MD PCP - General Internal Medicine 10/28/21 01/19/24 Harjeet Cintron MD 1 [place] [address] PCP - General 01/20/24 Amando Cintron MD Surgeon Vascular Surgery 08/25/21 Angélica Boyd, BARTOLOME Registered Nurse Pulmonary Disease 02/09/22 11/08/24 documented as of this encounter
--- OUTSIDE RECORDS SUMMARY | 2025-07-16 15:51 | XMS_ITS | Encounter Summary ---
Author Organization [facility] Healthcare Address [address] [place] [address] Care Team Providers Care Roller Coaster Operator Name Role Phone Amando Cintron MD Unavailable Alfredo Negron MD Primary Care Provide r Angélica Boyd RN Unavailable Unavailable Rosalva Prince RN Unavailable [phone] Nisha Lepe RN Unavailable Harjeet Cintron MD Primary Care Prov ider Encounter Details Date Type Department Care Team (Late st Contact Info) Description 07/20/2022 Telephone [facility] Primary Care Medicine Clinic [address] [facility] [address] [place] [address] Alfredo Negron MD [address] [facility] [address] [place] [address] Social History Tobacco Use Types Packs/Day Years [...] on file Legal Sex Male 1:17 AM DIP LUBE OPERATOR Gender Identity Not on file Sexual [...] them without telling anyone). [facility] Chronic Pain Care Plan Chronic Care Management No change(09/20 9:23 AM DIP LUBE OPERATOR) Marla Mcdaniel RN Note: Problem: Chronic [...] documented as of this encounter Care Teams Roller Coaster Operator Relationship Specialty Start Date End Date Alfredo Negron MD PCP - General Internal Medicine 10/28/21 01/19/24 Harjeet Cintron MD 1 [place] [address] PCP - General 01/20/24 Amando Cintron MD Surgeon Vascular Surgery 08/25/21 Angélica Boyd RN Registered Nurse Pulmonary Disease 02/09/22 11/08/24 Rosalva Prince RN [address] [facility] [address] [place] [address] SHOP Outpatient School Adjustment Counselor 01/03/23 01/15/23 Nisha Lepe, BARTOLOME [address] [place] [address] [address] [place] [address] Optical Glass Sawyer 01/21/23 02/16/23 documented as of this encounter
--- OUTSIDE RECORDS SUMMARY | 2025-07-16 15:51 | XMS_ITS | Encounter Summary ---
Author Organization [facility] Address [address] [place] [address] Phone Care Team Providers Care Concrete Layer Name Role Phone Amando Cintron MD Unavailable [phone] Alfredo Negron MD Primary Care Provide r Angélica Boyd RN Unavailable Unavailable Rosalva Prince RN Unavailable Nisha Lepe RN Unavailable [phone] Harjeet Cintron MD Primary Care Prov ider [...] on file Legal Sex Male 1:17 AM INK JET OPERATOR Gender Identity Not on file Sexual [...] (rather than stopping them without telling anyone). [facility] Chronic Pain Care Plan Chronic Care Management No change(09/20 9:23 AM INK JET OPERATOR) No Marla Sheppard RN Note: Problem: [...] documented as of this encounter Care Teams Concrete Layer Relationship Specialty Start Date End Date Alfredo Negron MD PCP - General Internal Medicine 10/28/21 01/19/24 Harjeet Cintron MD 1 [place] [address] PCP - General 01/20/24 Amando Cintron MD Surgeon Vascular Surgery 08/25/21 Angélica Boyd RN Registered Nurse Pulmonary Disease 02/09/22 11/08/24 Rosalva Prince RN [address] [facility] [address] [place] [address] SHOP Outpatient Junior Engineer 01/03/23 01/15/23 Nisha Lepe, BARTOLOME [address] [place] [address] [address] [place] [address] Food Beverage Attendant 01/21/23 02/16/23 documented as of this encounter
--- OUTSIDE RECORDS SUMMARY | 2025-07-16 15:51 | XMS_ITS | Encounter Summary ---
Author Organization [facility] Healthcare Address [address] [place] [address] Care Team Providers Care Tent Finisher Name Role Phone Amando Cintron MD Unavailable Alfredo Negron MD Primary Care Provide r Angélica Boyd RN Unavailable Unavailable Rosalva Prince RN Unavailable Nisha Lepe RN Unavailable [phone] Harjeet Cintron MD Primary Care Prov ider Encounter Details Date Type Department Care Team (Late st Contact Info) Description 08/16/2022 Telephone [facility] Primary Care Medicine Clinic [address] [place] [address] Alfredo Negron MD [address] [facility] [address] [place] [address] Social History Tobacco Use Types Packs/Day Years [...] file Legal Sex Male 1:17 AM DIRECTOR MEDICAL Gender Identity Not on file Sexual Orientation Not on file documented as of this encounter Functional Status * Alcohol Withdrawal BP Hierarchy Answer Date of Assessment Author Ibanez 08/19/2022 2:21 PM DIRECTOR MEDICAL Brandon Sarabia MA documented as of this [...] Care Management No change(09/20 9:23 AM DIRECTOR MEDICAL) Marla Mcdaniel, RN Note: Problem: Chronic Pain// [...] documented as of this encounter Care Teams Tent Finisher Relationship Specialty Start Date End Date Alfredo Negron MD PCP - General Internal Medicine 10/28/21 01/19/24 Harjeet Cintron MD [address] [place] [address] PCP - General 01/20/24 Amando Cintron MD Surgeon Vascular Surgery 08/25/21 Angélica Boyd RN Registered Nurse Pulmonary Disease 02/09/22 11/08/24 Rosalva Prince RN [address] [facility] [address] [place] [address] SHOP Outpatient Drug Safety Specialist 01/03/23 01/15/23 Nisha Lepe RN [address] [facility] [facility] [address] [place] [address] Jewish Thought Professor 01/21/23 02/16/23 documented as of this encounter
--- OUTSIDE RECORDS SUMMARY | 2025-07-16 15:51 | XMS_ITS | Encounter Summary ---
Author Organization [facility] Address [address] [place] [address] Phone Care Team Providers Care Monitoring Specialist Name Role Phone Erasmo Masters MD Primary Care Provider [phone] Markell, Bruce Gregory MD PhD Primary Care Provide r Erasmo Masters MD Primary Care Provider [phone] Markell, Bruce Gregory MD PhD Primary Care Provide r Erasmo Masters MD Primary Care Provider [phone] Markell, Bruce Gregory MD PhD Primary Care [...] Erasmo Masters MD Primary Care Provider [phone] Bruce Guillaume MD PhD Primary Care Provide r Erasmo Masters MD Primary Care Provider [phone] Bruce Guillaume MD PhD Primary Care Provide r Erasmo Masters MD Primary Care Provider [phone] Bruce Guillaume MD PhD Primary Care Provide r Erasmo Masters MD Primary Care Provider [phone] Markell, Bruce Gregory MD PhD Primary Care Provide r Sorin Santos MD Primary Care Provider Alfredo Negron MD Primary Care Provide r Amando Cintron MD Unavailable Sorin Santos MD Primary Care Provider Alfredo Negron MD Primary Care Provide r Angélica Boyd RN Unavailable Unavailable Rosalva Prince RN Unavailable [phone] Nisha Lepe RN Unavailable Harjeet Cintron MD Primary Care Prov ider Encounter Details Date Type Department Care Team (Latest Contact Info) Description 03/09/2017 Orders Only [facility] CONVERSION Scanning, Provider Social History Tobacco Use Types Packs/Day Years Used Date Smoking Tobacco: Never Assessed Sex and Gender Information Value Date Recorded Sex Assigned at Not on file Legal Sex Male 1:17 AM JAVA J2EE SOFTWARE ENGINEER Gender Identity Not on file Sexual [...] documented as of this encounter Care Teams Monitoring Specialist Relationship Specialty Start Date End Date Erasmo Masters MD [address] [place] [address] PCP - General 02/06/17 05/28/17 Bruce Guillaume MD PhD [address] [place] [address] PCP - General 05/29/17 05/29/17 Erasmo Masters MD [address] [place] [address] PCP - General 05/30/17 05/31/17 Bruce Guillaume MD PhD [address] [facility] [address] [place] [address] PCP - General 06/01/17 06/01/17 Erasmo Masters MD [address] [place] [address] PCP - General 06/02/17 06/08/17 Bruce Guillaume MD PhD [address] [address] [place] [address] PCP - General 06/09/17 06/25/17 Bruce Guillaume MD PhD [address] [address] [place] [address] PCP - General 06/26/17 06/26/17 Erasmo Masters MD [address] [place] [address] PCP - General 06/27/17 06/27/17 Bruce Guillaume MD PhD 1400 [facility] [address] [place] [address] PCP - General 06/28/17 06/28/17 Bruce Guillaume MD PhD [address] [facility] [address] [place] [address] PCP - General 06/29/17 07/10/17 Erasmo Masters MD [address] [place], [place] [address] PCP - General 07/11/17 07/27/17 Bruce Guillaume MD PhD [address] [place] [address] [place] [address] PCP - General 07/28/17 07/28/17 Erasmo Masters MD [address] [place] [address] PCP - General 07/29/17 08/20/17 Bruce Guillaume MD PhD [address] [place] [address] [place] [address] PCP - General 08/21/17 08/23/17 Erasmo Masters MD [address] [place], [place] [address] PCP - General 08/24/17 09/17/17 Bruce Guillaume MD PhD [address] [place] [address] [place] [address] PCP - General 09/18/17 10/05/17 Erasmo Masters MD [address] [place] [address] PCP - General 10/06/17 10/17/17 Bruce Guillaume MD PhD [address] [place] [address] [place] [address] PCP - General 10/18/17 10/23/17 Erasmo Masters MD [address] [place] [address] PCP - General 10/24/17 10/24/17 Bruce Guillaume MD PhD [address] [address] PCP - General 10/25/17 11/20/17 Erasmo Masters MD [address] [place] [address] PCP - General 11/21/17 11/21/17 Bruce Guillaume MD PhD [address] [place] [address] PCP - General 11/22/17 01/21/19 Sorin Santos MD [id number] [place] [address] PCP - General Internal Medicine 01/22/19 01/15/21 Alfredo Negron MD [address] [address] PCP - General 01/16/21 10/26/21 Sorin Santos MD 1 [facility] [address] [place] [address] PCP - General 10/27/21 10/27/21 Alfredo Negron MD [id number] [place] [address] PCP - General Internal Medicine 10/28/21 01/19/24 Harjeet Cintron MD 1 [place] [address] PCP - General 01/20/24 Amando Cintron MD 1 [facility] [address] [place] [address] Surgeon Vascular Surgery 08/25/21 Angélica Boyd RN Registered Nurse Pulmonary Disease 02/09/22 11/08/24 Rosalva Prince, BARTOLOME 4590 [facility] [address]300 [place] [address] SHOP Outpatient Operating Room Aide 01/03/23 01/15/23 Nisha Lepe RN [address] [place] [address] 300 [place] [address] Ticketing Clerk 01/21/23 02/16/23 documented as of this encounter
--- OUTSIDE RECORDS SUMMARY | 2025-07-16 15:51 | XMS_ITS | Encounter Summary ---
Author Organization [facility] Address [address] [place] [address] Phone Care Team Providers Care Analyst Market Intelligence Name Role Phone Bruce Guillaume MD PhD Primary Care Provide r Erasmo Masters MD Primary Care Provider [phone] Bruce Guillaume MD PhD Primary Care Provide r Erasmo Masters MD Primary Care Provider [phone] Bruce Guillaume MD PhD Primary Care Provide r Erasmo Masters MD Primary Care Provider [phone] Bruce Guillaume MD PhD Primary Care Provide r Bruce Guillaume MD PhD Primary Care Provide r Erasmo Masters MD Primary Care Provider [phone] Bruce Guillaume MD PhD Primary Care Provide r Bruce Guillaume MD PhD Primary Care Provide r Erasmo Masters MD Primary Care Provider [phone] Bruce Guillaume MD PhD Primary Care Provide r Erasmo Masters MD Primary Care Provider [phone] Bruce Guillaume MD PhD Primary Care Provide r Erasmo Masters MD Primary Care Provider [phone] Bruce Guillaume MD PhD Primary Care Provide r Erasmo Masters MD Primary Care Provider [phone] Markell, Bruce Gregory MD PhD Primary Care Provide r Erasmo Masters MD Primary Care Provider [phone] Markell, Bruce Gregory MD PhD Primary Care Provide r Erasmo Masters MD Primary Care Provider [phone] Nicollet, Bruce Gregory MD PhD Primary Care Provide r Sorin Santos MD Primary Care Provider Alfredo Negron MD Primary Care Provide r Amando Cintron MD Unavailable [phone] Sorin Santos MD Primary Care Provider Alfredo Negron MD Primary Care Provide r Angélica Boyd RN Unavailable Unavailable Rosalva Prince RN Unavailable [phone] Nisha Lepe RN Unavailable [phone] Harjeet Cintron MD Primary Care Prov ider Encounter Details Date Type Department Care Team (Latest Contact Info) Description 01/27/2017 Orders Only [facility] CONVERSION Scanning, Provider Social History Tobacco Use Types Packs/Day Years Used Date Smoking Tobacco: Never Assessed Sex and Gender Information Value Date Recorded Sex Assigned at Not on file 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 Gender Identity Not on file Sexual [...] documented as of this encounter Care Teams Analyst Market Intelligence Relationship Specialty Start Date End Date Bruce Guillaume MD PhD [address] [address] [address] [place] [address] PCP - General 11/24/16 02/05/17 Erasmo Masters MD [address] [place] [address] PCP - General 02/06/17 05/28/17 Bruce Guillaume MD PhD [address] [place] [address] PCP - General 05/29/17 05/29/17 Erasmo Masters MD [address] [place] [address] PCP - General 05/30/17 05/31/17 Bruce Guillaume MD PhD [address] [place] [address] PCP - General 06/01/17 06/01/17 Erasmo Masters MD [address] [place] [address] PCP - General 06/02/17 06/08/17 Bruce Guillaume MD PhD [address] [place] [address] PCP - General 06/09/17 06/25/17 Bruce Guillaume MD PhD [address] [facility] [address] [place] [address] PCP - General 06/26/17 06/26/17 Erasmo Masters MD [address] [place] [address] PCP - General 06/27/17 06/27/17 Bruce Guillaume MD PhD 1400 [facility] [address] [place] [address] PCP - General 06/28/17 06/28/17 Bruce Guillaume MD PhD [address] [place] [address] [place] [address] PCP - General 06/29/17 07/10/17 Erasmo Masters MD [address] [place], [place] [address] PCP - General 07/11/17 07/27/17 Bruce Guillaume MD PhD [address] [place] [address] [facility] [place] [address] PCP - General 07/28/17 07/28/17 Erasmo Masters MD [address] [place] [address] PCP - General 07/29/17 08/20/17 Bruce Guillaume MD PhD [address] [place] [address] [facility] [place] [address] PCP - General 08/21/17 08/23/17 Erasmo Masters MD [address] [place], [place] [address] PCP - General 08/24/17 09/17/17 Bruce Guillaume MD PhD 1400 [facility] [place] [address] PCP - General 09/18/17 10/05/17 Erasmo Masters MD [address] [place], [place] [address] PCP - General 10/06/17 10/17/17 Bruce Guillaume MD PhD [address] [place] [address] PCP - General 10/18/17 10/23/17 Erasmo Masters MD [address] [place] [address] PCP - General 10/24/17 10/24/17 Bruce Guillaume MD PhD [address] [place] [address] PCP - General 10/25/17 11/20/17 Erasmo Masters MD [address] [place] [address] PCP - General 11/21/17 11/21/17 Bruce Guillaume MD PhD [address] [place] [address] PCP - General 11/22/17 01/21/19 Sorin Santos MD [address] [address] PCP - General Internal Medicine 01/22/19 01/15/21 Alfredo Negron MD [address] [address] PCP - General 01/16/21 10/26/21 Sorin Santos MD [address] [address] PCP - General 10/27/21 10/27/21 Alfredo Negron MD 1 [facility] [address] [place] [address] PCP - General Internal Medicine 10/28/21 01/19/24 Harjeet Cintron MD 1 [place] [address] PCP - General 01/20/24 Amando Cintron MD [address] [address] Surgeon Vascular Surgery 08/25/21 Angélica Boyd RN Registered Nurse Pulmonary Disease 02/09/22 11/08/24 Rosalva Prince, RN 4590 [facility] [address] [place] [address] SHOP Outpatient Sports Lawyer 01/03/23 01/15/23 Nisha Lepe, BARTOLOME [address] [place] [address] [address] [place] [address] Business Machine Operator 01/21/23 02/16/23 documented as of this encounter
--- OUTSIDE RECORDS SUMMARY | 2025-07-16 15:51 | XMS_ITS | Encounter Summary ---
Author Organization [facility] Address [address] [place] [address] Care Team Providers Care Custom Shoemaker Name Role Phone Amando Cintron MD Unavailable Alfredo Negron MD Primary Care Provide r Angélica Boyd RN Unavailable Unavailable Rosalva Prince RN Unavailable [phone] Nisha Lepe RN Unavailable [phone] Harjeet Cintron MD Primary Care Prov ider Encounter Details Date Type Department Care Team (Late st Contact Info) Description 07/05/2022 Telephone [facility] Primary Care Medicine Clinic [address] [facility] [address] [place] [address] Alfredo Negron MD [address] [facility] [address] [place] [address] Social History Tobacco Use Types Packs/Day Years [...] on file 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 [facility] Chronic Pain Care Plan Chronic Care Management No change(09/20 9:23 AM ELEMENTARY SECRETARY) Marla Mcdaniel RN Note: Problem: Chronic Pain// [...] documented as of this encounter Care Teams Custom Shoemaker Relationship Specialty Start Date End Date Alfredo Negron MD PCP - General Internal Medicine 10/28/21 01/19/24 Harjeet Cintron MD 1 [place] [address] PCP - General 01/20/24 Amando Cintron MD Surgeon Vascular Surgery 08/25/21 Angélica Boyd RN Registered Nurse Pulmonary Disease 02/09/22 11/08/24 Rosalva Prince RN [address] [facility] [address] [place] [address] SHOP Outpatient Sap Bobj Developer 01/03/23 01/15/23 Nisha Lepe, BARTOLOME [address] [place] [address] [address] [place] [address] Final Inspector Paper 01/21/23 02/16/23 documented as of this encounter
--- OUTSIDE RECORDS SUMMARY | 2025-07-16 15:51 | XMS_ITS | Encounter Summary ---
Author Organization [facility] Healthcare Address [address] [place] [address] Care Team Providers Care Wash Rack Operator Name Role Phone Amando Cintron MD Unavailable Alfredo Negron MD Primary Care Provide r Angélica Boyd RN Unavailable Unavailable Rosalva Prince RN Unavailable [phone] Nisha Lepe RN Unavailable Harjeet Cintron MD Primary Care Prov ider Encounter Details Date Type Department Care Team (Late st Contact Info) Description 08/22/2022 Telephone [facility] Primary Care Medicine Clinic [address] [facility] [address] [place] [address] Alfredo Negron MD [address] [facility] [address] [place] [address] Social History Tobacco Use Types Packs/Day Years [...] on file 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 [facility] Chronic Pain Care Plan Chronic Care Management No change(09/20 9:23 AM EXTRUSION LINE OPERATOR) Marla Mcdaniel RN Note: Problem: Chronic [...] documented as of this encounter Care Teams Wash Rack Operator Relationship Specialty Start Date End Date Alfredo Negron MD PCP - General Internal Medicine 10/28/21 01/19/24 Harjeet Cintron MD 1 [place] [address] PCP - General 01/20/24 Amando Cintron MD Surgeon Vascular Surgery 08/25/21 Angélica Boyd RN Registered Nurse Pulmonary Disease 02/09/22 11/08/24 Rosalva Prince RN [address] [employer] [address] [place] [address] SHOP Outpatient Swim Instructor 01/03/23 01/15/23 Nisha Lepe RN [address] [facility] [address] [place] [address] Strainer Tender 01/21/23 02/16/23 documented as of this encounter
--- OUTSIDE RECORDS SUMMARY | 2025-07-16 15:51 | XMS_ITS | Encounter Summary ---
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 [facility] Chronic Pain Care Plan Chronic Care Management No change(09/20 9:23 AM AIR ANALYSIS TECHNICIAN) No Marla Sheppard RN Note: Problem: [...] documented as of this encounter Care Teams Stamp Machine Servicer Relationship Specialty Start Date End Date Alfredo Negron MD PCP - General Internal Medicine 10/28/21 01/19/24 Harjeet Cintrno MD 1 [place] [address] PCP - General 01/20/24 Amando Cintron MD Surgeon Vascular Surgery 08/25/21 Angélica Boyd RN Registered Nurse Pulmonary Disease 02/09/22 11/08/24 Rosalva Prince, BARTOLOME [address] [facility] [address] [place] [address] SHOP Outpatient Commissioning Engineer 01/03/23 01/15/23 Nisha Lepe, BARTOLOME [address] [place] [address] [address] [facility] [address] [place] [address] Washer Off 01/21/23 02/16/23 documented as of this encounter
--- OUTSIDE RECORDS SUMMARY | 2025-07-16 15:51 | XMS_ITS | Encounter Summary ---
Author Organization [facility] Address [address] [place] [address] Phone Care Team Providers Care Astrobiologist Name Role Phone Amando Cintron MD Unavailable [phone] Harjeet Cintron MD Primary Care Prov ider Encounter Details Date Type Department Care Team (Late st Contact Info) Description 07/16/2025 Telephone [facility] Medicine Cardiology [address] [facility] Medicine 8th [place] [address] [place] [address] Murali Chandra MD [address] [facility] [address] [place] [address] Social History Tobacco Use Types [...] often do you attend chur ch or congregation services? 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 Pt wondering if has recvd and been able to reviewthe results? Pls return call to pt to discuss. AND GAME WARDEN documented in this encounter Plan of Treatment [...] when to call CM or provider. [facility] Chronic Pain Care Plan Chronic Care Management No change(09/20 9:23 AM FISH AND GAME WARDEN) No Marla Sheppard, RN Note: Problem: Chronic [...] on filedocumented in this encounter Care Teams Astrobiologist Relationship Specialty Start Date End Date Harjeet Cintron MD 1 [place] [address] PCP - General 01/20/24 Amando Cintron MD Surgeon Vascular Surgery 08/25/21 documented as of this encounter
--- OUTSIDE RECORDS SUMMARY | 2025-07-16 15:51 | XMS_ITS | Encounter Summary ---
Author Organization [facility] Address [address] [place] [address] Phone Care Team Providers Care Banking And Finance Instructor Name Role Phone Bruce Guillaume MD PhD Primary Care Provide r Bruce Guillaume MD PhD Primary Care Provide r Erasmo Masters MD Primary Care Provider [phone] Bruce Guillaume MD PhD Primary Care Provide r Bruce Guillaume MD PhD Primary Care Provide r Erasmo Masters MD Primary Care Provider [phone] Bruce Guillaume MD PhD Primary Care Provide r Erasmo Masters MD Primary Care Provider [phone] Bruce Guillaume MD PhD Primary Care Provide r Erasmo Masters MD Primary Care Provider [phone] Bruce Guillaume MD PhD Primary Care Provide r Erasmo Masters MD Primary Care Provider [phone] Bruce Guillaume MD PhD Primary Care Provide r Erasmo Masters MD Primary Care Provider Bruce Guillaume MD PhD Primary Care Provide r Erasmo Masters MD Primary Care Provider Bruce Guillaume MD PhD Primary Care Provide r Sorin Santos MD Primary Care Provider Alfredo Negron MD Primary Care Provide r Amando Cintron MD Unavailable [phone] Sorin Santos MD Primary Care Provider Alfredo Negron MD Primary Care Provide r Angélica Boyd RN Unavailable Unavailable Rosalva Prince RN Unavailable [phone] Nisha Lepe RN Unavailable [phone] Harjeet Cintron MD Primary Care Prov ider Encounter Details Date Type Department Care Team (Latest Contact Info) Description 06/15/2017 Orders Only [facility] CONVERSION Scanning, Provider Social History Tobacco Use Types Packs/Day Years Used Date Smoking Tobacco: Never Assessed Sex and Gender Information Value Date Recorded Sex Assigned at Not on file 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 Gender Identity Not on file Sexual Orientation Not on file documented as of this encounter Plan of Treatment Scheduled Procedures Name Priority Associated Diagnoses Date/Ti me COLONOSCOPY Iron deficiency anemia, unspecified iron deficiency anemia type documented as of this encounter Procedures Procedure Name Priority Date/Time Associated Diagnosis Comments VASCULAR LABORATORY REPORT 06/15/2017 4:20 PM ROOM SERVICE FOOD SERVICE ATTENDANT VASCULAR LABORATORY REPORT 06/15/2017 4:20 PM ROOM SERVICE FOOD SERVICE ATTENDANT documented in this encounter Results * VASCULAR LABORATORY REPORT (06/15/2017 4:20 PM ROOM SERVICE FOOD SERVICE ATTENDANT) Anatomical Region Laterality Modality Ultrasound us Provider Scanning CV VASCULAR PROCEDURES Final R esult * VASCULAR LABORATORY REPORT (06/15/2017 4:20 PM ROOM SERVICE FOOD SERVICE ATTENDANT) Anatomical Region Laterality Modality Ultrasound us Provider [...] documented as of this encounter Care Teams Banking And Finance Instructor Relationship Specialty Start Date End Date Bruce Guillaume MD PhD [address] [place] [address] Global [facility] [place] [id number] PCP - General 06/09/17 06/25/17 Bruce Guillaume MD PhD [address] [place] [address] [place] [id number] PCP - General 06/26/17 06/26/17 Erasmo Masters MD [address] [place] [address] PCP - General 06/27/17 06/27/17 Bruce Guillaume MD PhD [address] [place] [id number] PCP - General 06/28/17 06/28/17 Bruce Guillaume MD PhD [address] [place] [id number] PCP - General 06/29/17 07/10/17 Erasmo Masters MD [address] [facility] [place] [address] PCP - General 07/11/17 07/27/17 Bruce Guillaume MD PhD [address] [address] [place] [address] PCP - General 07/28/17 07/28/17 Erasmo Masters MD [address] [place] [address] PCP - General 07/29/17 08/20/17 Bruce Guillaume MD PhD [address] [place] [address] [place] [address] PCP - General 08/21/17 08/23/17 Erasmo Masters MD [address] [place] [address] PCP - General 08/24/17 09/17/17 Bruce Guillaume MD PhD [address] [place] [address] [place] [address] PCP - General 09/18/17 10/05/17 Erasmo Masters MD [address] [place] [address] PCP - General 10/06/17 10/17/17 Bruce Guillaume MD PhD [address] [place] [address] [place] [address] PCP - General 10/18/17 10/23/17 Erasmo Masters MD [address] [place] [address] PCP - General 10/24/17 10/24/17 Bruce Guillaume MD PhD [address] [place] [address] PCP - General 10/25/17 11/20/17 Erasmo Masters MD [address] [place] [address] PCP - General 11/21/17 11/21/17 Bruce Guillaume MD PhD [address] [place] [address] PCP - General 11/22/17 01/21/19 Sorin [address] MD 1 [facility] [address] [place] [address] PCP - General Internal Medicine 01/22/19 01/15/21 Alfredo Negron MD 1 [facility] [address] [place] [address] PCP - General 01/16/21 10/26/21 Sorin Santos MD 1 [facility] [address] [place] [address] PCP - General 10/27/21 10/27/21 Alfredo Negron MD [address] [facility] [address] [place] [address] PCP - General Internal Medicine 10/28/21 01/19/24 Harjeet Cintron MD 1 [place] [address] PCP - General 01/20/24 Amando Cintron MD 1 [facility] [address] [place] [address] Surgeon Vascular Surgery 08/25/21 Angélica Boyd RN Registered Nurse Pulmonary Disease 02/09/22 11/08/24 Rosalva Prince RN 4590 [facility] [address] [place] [address] SHOP Outpatient Riding Silks Custodian 01/03/23 01/15/23 Nisha Lepe RN [address] [place] [address] 300 [place] [address] Patient Office Rep 01/21/23 02/16/23 documented as of this encounter
--- OUTSIDE RECORDS SUMMARY | 2025-07-16 15:51 | XMS_ITS | Encounter Summary ---
Author Organization [facility] Address [address] [place] [address] Phone Care Team Providers Care National Sales Consultant Name Role Phone Bruce Guillaume MD PhD [...] RN Unavailable Unavailable Rosalva Prince RN Unavailable [phone] Nisha Lepe RN Unavailable Harjeet Cintron MD Primary Care Prov ider Encounter Details Date Type Department Care Team (Latest Contact Info) Description 09/18/2017 Orders Only [facility] CONVERSION Scanning, Provider Social History Tobacco Use Types Packs/Day Years Used Date Smoking Tobacco: Former Sex and Gender Information Value Date Recorded Sex Assigned at Not on file 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 Gender Identity Not on file Sexual Orientation Not on file documented as of this encounter Plan of Treatment Scheduled Procedures Name Priority Associated Diagnoses Date/Ti me COLONOSCOPY Iron deficiency anemia, unspecified iron deficiency anemia type documented as of this encounter Procedures Procedure Name Priority Date/Time Associated Diagnosis Comments VASCULAR LABORATORY REPORT 09/18/2017 9:00 PM SANITARIAN INSPECTOR VASCULAR LABORATORY REPORT 09/18/2017 9:00 PM SANITARIAN INSPECTOR documented in this encounter Results * VASCULAR LABORATORY REPORT (09/18/2017 9:00 PM SANITARIAN INSPECTOR) Anatomical Region Laterality Modality Ultrasound us Provider Scanning CV VASCULAR PROCEDURES Final R esult * VASCULAR LABORATORY REPORT (09/18/2017 9:00 PM SANITARIAN INSPECTOR) Anatomical Region Laterality Modality Ultrasound us Provider [...] documented as of this encounter Care Teams National Sales Consultant Relationship Specialty Start Date End Date Bruce Guillaume MD PhD [address] [place] [address] PCP - General 09/18/17 10/05/17 Erasmo Masters MD [address] [place] [address] PCP - General 10/06/17 10/17/17 Bruce Guillaume MD PhD [address] [place] [address] PCP - General 10/18/17 10/23/17 Earsmo Masters MD [address] [place] [address] PCP - General 10/24/17 10/24/17 Bruce Guillaume MD PhD [address] [place] [address] PCP - General 10/25/17 11/20/17 Erasmo Masters MD [address] [place] [address] PCP - General 11/21/17 11/21/17 Bruce Guillaume MD PhD [address] [place] [address] PCP - General 11/22/17 01/21/19 Sorin Santos MD 1 [facility] [address] [place] [address] PCP - General Internal Medicine 01/22/19 01/15/21 Alfredo Negron MD 1 [facility] [address] [place] [address] PCP - General 01/16/21 10/26/21 Sorin Santos MD 1 [facility] [address] [place] [address] PCP - General 10/27/21 10/27/21 Alfredo Negron MD 1 [facility] [address] [place] [address] PCP - General Internal Medicine 10/28/21 01/19/24 Harjeet Cintron MD 1 [place] [address] PCP - General 01/20/24 Amando Cintron MD 1 [facility] [address] [place] [address] Surgeon Vascular Surgery 08/25/21 Angélica Boyd RN Registered Nurse Pulmonary Disease 02/09/22 11/08/24 Rosalva Prince RN [address] [facility] [address] [place] [address] SHOP Outpatient Ampoule Washing Machine Operator 01/03/23 01/15/23 Nisha Lepe RN [address] [place] [address] [address] [place] [address] Tag Marker 01/21/23 02/16/23 documented as of this encounter
--- OUTSIDE RECORDS SUMMARY | 2025-07-16 15:51 | XMS_ITS | Encounter Summary ---
Author Organization [facility] Healthcare Address [address] [place] [address] Care Team Providers Care Vault Keeper Name Role Phone Amando Cintron MD Unavailable Alfredo Negron MD Primary Care Provide r Angélica Boyd RN Unavailable Unavailable Rosalva Prince RN Unavailable Nisha Lepe RN Unavailable [phone] Harjeet Cintron MD Primary Care Prov ider Encounter Details Date Type Department Care Team (Late st Contact Info) Description 08/17/2022 Telephone [facility] Primary Care Medicine Clinic [address] 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 Gender Identity Not on file Sexual Orientation Not on file documented as of this encounter Functional Status * Alcohol Withdrawal BP Hierarchy Answer Date of Assessment Author Ibanez 08/19/2022 2:21 PM LEAD APPLIER Brandon Sarabia MA documented as of this [...] Care Management No change(09/20 9:23 AM LEAD APPLIER) Marla Mcdaniel, RN Note: Problem: Chronic Pain// [...] documented as of this encounter Care Teams Vault Keeper Relationship Specialty Start Date End Date Alfredo Negron MD PCP - General Internal Medicine 10/28/21 01/19/24 Harjeet Cintron MD 1 [place] [address] PCP - General 01/20/24 Amando Cintron MD Surgeon Vascular Surgery 08/25/21 Angélica Boyd RN Registered Nurse Pulmonary Disease 02/09/22 11/08/24 Rosalva Prince RN 45[address] [facility] [address] [place] [address] SHOP Outpatient Television Repairer 01/03/23 01/15/23 Nisha Lepe RN [address] [facility] [address] [place] [address] Manager Erp 01/21/23 02/16/23 documented as of this encounter
--- OUTSIDE RECORDS SUMMARY | 2025-07-16 15:52 | XMS_ITS | Encounter Summary ---
Author Organization [facility] Healthcare Address [address] [place] [address] Care Team Providers Care Secy Name Role Phone Amando Cintron MD Unavailable Alfredo Negron MD Primary Care Provide r Angélica Boyd RN Unavailable Unavailable Rosalva Prince RN Unavailable [phone] Nisha Lepe RN Unavailable [phone] Harjeet Cintron MD Primary Care Prov ider Encounter Details Date Type Department Care Team (Late st Contact Info) Description 12/15/2022 Telephone [facility] Primary Care Medicine Clinic [address] [facility] [address] [place] [address] Alfredo Negron MD [address] [facility] [address] [place] [address] Social History Tobacco Use Types Packs/Day Years [...] on file 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 [facility] Chronic Pain Care Plan Chronic Care Management No change(09/20 9:23 AM SIGNALS OFFICER) Marla Mcdaniel RN Note: Problem: Chronic [...] documented as of this encounter Care Teams Secy Relationship Specialty Start Date End Date Alfredo Negron MD PCP - General Internal Medicine 10/28/21 01/19/24 Harjeet Cintron MD 1 [place] [address] PCP - General 01/20/24 Amando Cintron MD Surgeon Vascular Surgery 08/25/21 Angélica Boyd, BARTOLOME Registered Nurse Pulmonary Disease 02/09/22 11/08/24 Rosalva Prince, BARTOLOME [address] [facility] [address] [place] [address] SHOP Outpatient Airborne Operations 01/03/23 01/15/23 Nisha Lepe RN [address] [place] [address] [address] [place] [address] Business And Services Instructor 01/21/23 02/16/23 documented as of this encounter
--- OUTSIDE RECORDS SUMMARY | 2025-07-16 15:52 | XMS_ITS | Encounter Summary ---
Author Organization [facility] Healthcare Address [address] [place] [address] Care Team Providers Care Sports Director Name Role Phone Amando Cintron MD Unavailable [phone] Harjeet Cintron MD Primary Care Prov ider Reason for Referral * (Routine) - Pending Review Specialty Diagnoses / Procedures Referred By Contlaura t Referred To Contact Diagnoses Hx of AKA (above knee amputation), left (HCC) Procedures Miscellaneous DME Harjeet Cintron MD 1 [place] [address] Phone: tel: fax: Referral ID Status Reason Start Date Expiration Date V isits Requested Visits Authorized [id number] Pending Review 07/15/2025 08/14/2026 1 1 H THERAPIST Encounter Details Date Type Department Care Team (Late st Contact Info) Description 07/15/2025 Orders Only [facility] Primary Care Medicine Clinic [address] [facility] [address] [place] [address] Harjeet Cintron MD 1 [place] [address] Hx of AKA (above knee [...] often do you attend chur ch or yarsani services? Never 05/11/2023 Do you belong to any clubs o r organizations such as gnosticism groups, unions, fraternal or athletic groups, or [...] on file Legal Sex Male 1:17 AM PSYCH THERAPIST Gender Identity Not on file Sexual Orientation Not on file documented as of this encounter Progress Notes * Harjeet Cintron MD - 07/15/2025 8:01 AM CST Order placed for 20 inch wide front wheeled walker. H THERAPIST documented in this encounter Plan of Treatment [...] take, when to call CM or provider. [facility] Chronic Pain Care Plan Chronic Care Management No change(09/20 9:23 AM PSYCH THERAPIST) Marla Mcdaniel, RN Note: Problem: Chronic Pain// [...] 07/15/2025 documented in this encounter Care Teams Sports Director Relationship Specialty Start Date End Date Harjeet Cintron MD 1 [place] [address] PCP - General 01/20/24 Amando Cintron MD Surgeon Vascular Surgery 08/25/21 documented as of this encounter
--- OUTSIDE RECORDS SUMMARY | 2025-07-16 15:52 | XMS_ITS | Encounter Summary ---
Author Organization [facility] Healthcare Address [address] [place] [address] Care Team Providers Care Principal Law Clerk Name Role Phone Amando Cintron MD Unavailable Alfredo Negron MD Primary Care Provide r Angélica Boyd RN Unavailable Unavailable Rosalva Prince RN Unavailable [phone] Nisha Lepe RN Unavailable [phone] Harjeet Cintron MD Primary Care Prov ider Encounter Details Date Type Department Care Team (Late st Contact Info) Description 08/30/2022 Telephone [facility] Primary Care Medicine Clinic [address] [facility] [address] [place] [address] Alfredo Negron MD [address] [facility] [address] [place] [address] Social History Tobacco Use Types Packs/Day Years [...] on file 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 [facility] Chronic Pain Care Plan Chronic Care Management No change(09/20 9:23 AM SUPPORT SERVICE TECH) Marla Mcdaniel RN Note: Problem: Chronic Pain// [...] documented as of this encounter Care Teams Principal Law Clerk Relationship Specialty Start Date End Date Alfredo Negron MD PCP - General Internal Medicine 10/28/21 01/19/24 Harjeet Cintron MD 1 [place] [address] PCP - General 01/20/24 Amando Cintron MD Surgeon Vascular Surgery 08/25/21 Angélica Boyd RN Registered Nurse Pulmonary Disease 02/09/22 11/08/24 Rosalva Prince, BARTOLOME [address] [facility] [address] [place] [address] SHOP Outpatient Rose Grading Supervisor 01/03/23 01/15/23 Nisha Lepe, BARTOLOME [address] [place] [address] [address] [place] [address] Documentation Supervisor 01/21/23 02/16/23 documented as of this encounter
--- OUTSIDE RECORDS SUMMARY | 2025-07-16 15:52 | XMS_ITS | Encounter Summary ---
Author Organization [facility] Healthcare Address [address] [place] [address] Care Team Providers Care Teacher Hearing Impaired Name Role Phone Amando Cintron MD Unavailable Alfredo Negron MD Primary Care Provide r Angélica Boyd RN Unavailable Unavailable Rosalva Prince RN Unavailable [phone] Nisha Lepe RN Unavailable Harjeet Cintron MD Primary Care Prov ider Encounter Details Date Type Department Care Team (Late st Contact Info) Description 08/23/2022 Telephone [facility] Primary Care Medicine Clinic [address] [facility] [address] [place] [address] Alfredo Negron MD [address] [facility] [address] [place] [address] Social History Tobacco Use Types Packs/Day Years [...] on file 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 [facility] Chronic Pain Care Plan Chronic Care Management No change(09/20 9:23 AM TRUCK CLEANER) Marla Mcdaniel RN Note: Problem: Chronic Pain// [...] documented as of this encounter Care Teams Teacher Hearing Impaired Relationship Specialty Start Date End Date Alfredo Negron MD PCP - General Internal Medicine 10/28/21 01/19/24 Harjeet Cintron MD 1 [place] [address] PCP - General 01/20/24 Amando Cintron MD Surgeon Vascular Surgery 08/25/21 Angélica Boyd RN Registered Nurse Pulmonary Disease 02/09/22 11/08/24 Rosalva Prince, BARTOLOME 4590 [facility] [address] [place] [address] SHOP Outpatient Nozzle Operator 01/03/23 01/15/23 Nisha Lepe, BARTOLOME [address] [place] [address] [address] [place] [address] Log Buyer 01/21/23 02/16/23 documented as of this encounter
--- OUTSIDE RECORDS SUMMARY | 2025-07-16 15:52 | XMS_ITS | Encounter Summary ---
Author Organization [facility] Healthcare Address [address] [place] [address] Care Team Providers Care Chief Of Pediatric Urology Name Role Phone Amando Cintron MD Unavailable Alfredo Negron MD Primary Care Provide r Angélica Boyd RN Unavailable Unavailable Rosalva Prince RN Unavailable [phone] Nisha Lepe RN Unavailable [phone] Harjeet Cintron MD Primary Care Prov ider Encounter Details Date Type Department Care Team (Late st Contact Info) Description 09/02/2022 Telephone [facility] Primary Care Medicine Clinic [address] [facility] [address] [place] [address] Dewayne Valentine Social History Tobacco [...] on file 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 Gender Identity Not on file Sexual Orientation [...] Chronic Care Management No change(09/20 9:23 AM PROGRAM DIRECTOR SCOUTING) Marla Mcdaniel RN Note: Problem: Chronic Pain// [...] documented as of this encounter Care Teams Chief Of Pediatric Urology Relationship Specialty Start Date End Date Alfredo Negron MD PCP - General Internal Medicine 10/28/21 01/19/24 Harjeet Cintron MD 1 [place] [address] PCP - General 01/20/24 Amando Cintron MD Surgeon Vascular Surgery 08/25/21 Angélica Boyd RN Registered Nurse Pulmonary Disease 02/09/22 11/08/24 Rosalva Prince, BARTOLOME [address] [facility] [address] [place] [address] SHOP Outpatient Geological Science Teacher 01/03/23 01/15/23 Nisha Lepe, BARTOLOME [address] [place] [address] 300 [place] [address] Travel Administrator 01/21/23 02/16/23 documented as of this encounter
--- OUTSIDE RECORDS SUMMARY | 2025-07-16 15:52 | XMS_ITS | Encounter Summary ---
Author Organization [facility] Healthcare Address [address] [place] [address] Care Team Providers Care Pole Framer Name Role Phone Amando Cintron MD Unavailable Alfredo Negron MD Primary Care Provide r Angélica Boyd RN Unavailable Unavailable Rosalva Prince RN Unavailable [phone] Nisha Lepe RN Unavailable [phone] Harjeet Cintron MD Primary Care Prov ider Encounter Details Date Type Department Care Team (Late st Contact Info) Description 09/05/2022 Telephone [facility] Primary Care Medicine Clinic [address] [facility] [address] [place] [address] Alfredo Negron MD [address] [facility] [address] [place] [address] Social History Tobacco Use Types Packs/Day Years [...] on file 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 Gender Identity Not on file Sexual Orientation [...] Chronic Care Management No change(09/20 9:23 AM COMPACTING MACHINE OPERATOR/TENDER) Marla Mcdaniel RN Note: Problem: Chronic Pain// [...] documented as of this encounter Care Teams Pole Framer Relationship Specialty Start Date End Date Alfredo Negron MD PCP - General Internal Medicine 10/28/21 01/19/24 Harjeet Cintron MD 1 [place] [address] PCP - General 01/20/24 Amando Cintron MD Surgeon Vascular Surgery 08/25/21 Angélica Boyd, BARTOLOME Registered Nurse Pulmonary Disease 02/09/22 11/08/24 Rosalva Prince, BARTOLOME [address] [facility] [address] [place] [address] SHOP Outpatient Vp Strategic Planning 01/03/23 01/15/23 Nisha Lepe RN [address] [place] [address] [address] [place] [address] Solution Designer 01/21/23 02/16/23 documented as of this encounter
--- OUTSIDE RECORDS SUMMARY | 2025-07-16 15:52 | XMS_ITS | Encounter Summary ---
Author Organization [facility] Healthcare Address [address] [place] [address] Care Team Providers Care Lumber Straightened Name Role Phone Amando Cintron MD Unavailable Alfredo Negron MD Primary Care Provide r Angélica Boyd RN Unavailable Unavailable Rosalva Prince RN Unavailable [phone] Nisha Lepe RN Unavailable Harjeet Cintron MD Primary Care Prov ider Encounter Details Date Type Department Care Team (Late st Contact Info) Description 11/25/2022 Telephone [facility] Primary Care Medicine Clinic [address] [facility] [address] [place] [address] Alfredo Negron MD [address] [facility] [address] [place] [address] Social History Tobacco Use Types Packs/Day Years [...] on file 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 [facility] Chronic Pain Care Plan Chronic Care Management No change(09/20 9:23 AM LEGAL OFFICER) Marla Mcdaniel RN Note: Problem: Chronic [...] documented as of this encounter Care Teams Lumber Straightened Relationship Specialty Start Date End Date Alfredo Negron MD PCP - General Internal Medicine 10/28/21 01/19/24 Harjeet Cintron MD 1 [place] [address] PCP - General 01/20/24 Amando Cintron MD Surgeon Vascular Surgery 08/25/21 Angélica Boyd, BARTOLOME Registered Nurse Pulmonary Disease 02/09/22 11/08/24 Rosalva Prince, BARTOLOME [address] [facility] [address] [place] [address] SHOP Outpatient Finance Effectiveness Manager 01/03/23 01/15/23 Nisha Lepe RN [address] [place] [address] [address] [place] [address] Electoral Officer 01/21/23 02/16/23 documented as of this encounter
--- OUTSIDE RECORDS SUMMARY | 2025-07-16 15:52 | XMS_ITS | Encounter Summary ---
Author Organization [facility] Healthcare Address [address] [place] [address] Care Team Providers Care Building And Construction Manager Name Role Phone Amando Cintron MD Unavailable Alfredo Negron MD Primary Care Provide r Angélica Boyd RN Unavailable Unavailable Rosalva Prince RN Unavailable [phone] Nisha Lepe RN Unavailable Harjeet Cintron MD Primary Care Prov ider Encounter Details Date Type Department Care Team (Late st Contact Info) Description 08/25/2022 Telephone [facility] Primary Care Medicine Clinic [address] [facility] [address] [place] [address] Alfredo Negron MD [address] [facility] [address] [place] [address] Social History Tobacco Use Types Packs/Day Years [...] on file 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 [facility] Chronic Pain Care Plan Chronic Care Management No change(09/20 9:23 AM SEARCH PLANNER) Marla Mcdaniel RN Note: Problem: Chronic Pain// [...] documented as of this encounter Care Teams Building And Construction Manager Relationship Specialty Start Date End Date Alfredo Negron MD PCP - General Internal Medicine 10/28/21 01/19/24 Harjeet Cintron MD 1 [place] [address] PCP - General 01/20/24 Amando Cintron MD Surgeon Vascular Surgery 08/25/21 Angélica Boyd RN Registered Nurse Pulmonary Disease 02/09/22 11/08/24 Rosalva Prince, BARTOLOME [address] [facility] [address] [place] [address] SHOP Outpatient Warehouse Laborer 01/03/23 01/15/23 Nisha Lepe, BARTOLOME [address] [place] [address] 300 [place] [address] Head Of Maintenance 01/21/23 02/16/23 documented as of this encounter
--- OUTSIDE RECORDS SUMMARY | 2025-07-16 15:52 | XMS_ITS | Encounter Summary ---
Author Organization [facility] Healthcare Address [address] [place] [address] Care Team Providers Care Fabric Machine Operator Name Role Phone Amando Cintron MD Unavailable Alfredo Negron MD Primary Care Provide r Angélica Boyd RN Unavailable Unavailable Rosalva Prince RN Unavailable [phone] Nisha Lepe RN Unavailable Harjeet Cintron MD Primary Care Prov ider Encounter Details Date Type Department Care Team (Late st Contact Info) Description 08/29/2022 Telephone [facility] Primary Care Medicine Clinic [address] 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 [facility] Chronic Pain Care Plan Chronic Care Management No change(09/20 9:23 AM CUSTOMER ENGINEER) Marla Mcdaniel RN Note: Problem: Chronic [...] documented as of this encounter Care Teams Fabric Machine Operator Relationship Specialty Start Date End Date Alfredo Negron MD PCP - General Internal Medicine 10/28/21 01/19/24 Harjeet Cintron MD 1 [place] [address] PCP - General 01/20/24 Amando Cintron MD Surgeon Vascular Surgery 08/25/21 Angélica Boyd RN Registered Nurse Pulmonary Disease 02/09/22 11/08/24 Rosalva Prince, BARTOLOME [address] [facility] [address] [place] [address] SHOP Outpatient Food Inspector 01/03/23 01/15/23 Nisha Lepe, BARTOLOME [address] [place] [address] [address] [place] [address] Textile Science Technician 01/21/23 02/16/23 documented as of this encounter
--- OUTSIDE RECORDS SUMMARY | 2025-07-16 15:52 | XMS_ITS | Encounter Summary ---
Author Organization [facility] Healthcare Address [address] [place] [address] Care Team Providers Care Accounts Payable Lead Name Role Phone Amando Cintron MD Unavailable Alfredo Negron MD Primary Care Provide r Angélica Boyd RN Unavailable Unavailable Rosalva Prince RN Unavailable [phone] Nisha Lepe RN Unavailable Harjeet Cintron MD Primary Care Prov ider Encounter Details Date Type Department Care Team (Late st Contact Info) Description 11/22/2022 Telephone [facility] Primary Care Medicine Clinic [address] [facility] [address] [place] [address] Alfredo Negron MD [address] [facility] [address] [place] [address] Social History Tobacco Use Types Packs/Day Years [...] on file 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 Gender Identity Not on file Sexual [...] Chronic Care Management No change(09/20 9:23 AM SCOW DERRICK OPERATOR) Marla Mcdaniel RN Note: Problem: Chronic [...] documented as of this encounter Care Teams Accounts Payable Lead Relationship Specialty Start Date End Date Alfredo Negron MD PCP - General Internal Medicine 10/28/21 01/19/24 Harjeet Cintron MD 1 [place] [address] PCP - General 01/20/24 Amando Cintron MD Surgeon Vascular Surgery 08/25/21 Angélica Boyd, BARTOLOME Registered Nurse Pulmonary Disease 02/09/22 11/08/24 Rosalva Prince, BARTOLOME [address] [facility] [address] [place] [address] SHOP Outpatient Mining Helper 01/03/23 01/15/23 Nisha Lepe RN [address] [place] [address] [address] [place] [address] Accounts Payable Clerk 01/21/23 02/16/23 documented as of this encounter
--- OUTSIDE RECORDS SUMMARY | 2025-07-16 15:52 | XMS_ITS | Encounter Summary ---
Author Organization [facility] Healthcare Address [address] [place] [address] Care Team Providers Care Tube Mill Operator Name Role Phone Amando Cintron MD Unavailable Alfredo Negron MD Primary Care Provide r Angélica Boyd RN Unavailable Unavailable Rosalva Prnice RN Unavailable [phone] Nisha Lepe RN Unavailable Harjeet Cintron MD Primary Care Prov ider Encounter Details Date Type Department Care Team (Late st Contact Info) Description 08/26/2022 Telephone [facility] Primary Care Medicine Clinic [address] [facility] [address] [place] [address] Alfredo Negron MD [address] [facility] [address] [place] [address] Social History Tobacco Use Types Packs/Day Years [...] on file Legal Sex Male 1:17 AM TECHNICAL ASST Gender Identity Not on file Sexual Orientation [...] (rather than stopping them without telling anyone). [facility] Chronic Pain Care Plan Chronic Care Management No change(09/20 9:23 AM TECHNICAL ASST) Marla Mcdaniel RN Note: Problem: Chronic Pain// [...] documented as of this encounter Care Teams Tube Mill Operator Relationship Specialty Start Date End Date Alfredo Negron MD PCP - General Internal Medicine 10/28/21 01/19/24 Harjeet Cintron MD [address] [place] [address] PCP - General 01/20/24 Amando Cintron MD Surgeon Vascular Surgery 08/25/21 Angélica Boyd RN Registered Nurse Pulmonary Disease 02/09/22 11/08/24 Rosalva Prince, BARTOLOME [address] [facility] [address] [place] [address] SHOP Outpatient Munitions Worker 01/03/23 01/15/23 Nisha Lepe, BARTOLOME [address] [place] [address] [address] [place] [address] Operation Agent 01/21/23 02/16/23 documented as of this encounter
--- OUTSIDE RECORDS SUMMARY | 2025-07-16 15:53 | XMS_ITS | Encounter Summary ---
Author Organization [facility] Healthcare Address [address] [place] [address] Care Team Providers Care Flying Ii Instructor Name Role Phone Amando Cintron MD Unavailable Alfredo Negron MD Primary Care Provide r Angélica Boyd RN Unavailable Unavailable Rosalva Prince RN Unavailable [phone] Nisha Lepe RN Unavailable Harjeet Cintron MD Primary Care Prov ider Encounter Details Date Type Department Care Team (Late st Contact Info) Description 09/16/2022 Telephone [facility] Primary Care Medicine Clinic [address] [facility] [address] [place] [address] Alfredo Negron MD [address] [facility] [address] [place] [address] Social History Tobacco Use Types Packs/Day Years [...] on file 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 [facility] Chronic Pain Care Plan Chronic Care Management No change(09/20 9:23 AM AGRICULTURAL INSPECTOR) Marla Mcdaniel RN Note: Problem: Chronic [...] documented as of this encounter Care Teams Flying Ii Instructor Relationship Specialty Start Date End Date Alfredo Negron MD PCP - General Internal Medicine 10/28/21 01/19/24 Harjeet Cintron MD [address] [place] [address] PCP - General 01/20/24 Amando Cintron MD Surgeon Vascular Surgery 08/25/21 Angélica Boyd, BARTOLOME Registered Nurse Pulmonary Disease 02/09/22 11/08/24 Rosalva Prince, BARTOLOME [address] [facility] [address] [place] [address] SHOP Outpatient Account Clerk 01/03/23 01/15/23 Nisha Lepe RN [address] [place] [address] [address] [place] [address] Expansion Joint Builder 01/21/23 02/16/23 documented as of this encounter
--- OUTSIDE RECORDS SUMMARY | 2025-07-16 15:53 | XMS_ITS | Clinical Summary ---
Author Organization [facility] al Address [address] [place] [address] Care Team Providers Care Standpipe Tender Name Role Phone Koko Cintron MD Unavailable Harjeet Cintron MD Primary [...] Indications: pain Active blood-glucose,r eceiver,cont (Dexcom G7 Truck Driver'S Offsider) [facility] For continuous use with Dexcom G7 sensors [...] 09/05/2024 Assessment & Plan (07/11/2025 12:21 PM PROMOTIONS TEAM LEADER): Orders: albuterol HFA (Ventolin HFA) 90 mcg/actuation [...] fiber and imodium for symptomatic management at [facility] appt on 05/31/24. Assessment & Plan (11/27/2024 10:57 PM CDT): PLAN: - sent pt to 4th floor lab today to obtain stool culture kit, advised pt to complete this especially before his cruise ship trip next week Assessment & Plan (07/31/2024 10:14 PM PROMOTIONS TEAM LEADER): Patient symptoms are not much improved. Will pursue infectious workup. Patient advised to start psyllium fiber and to increase dietary fiber. PLAN: - Start psyllium fiber - Continue imodium prn - Stool culture, stool osmolality, fecal calprotectin, fecal leukocytes, fecal lactoferrin - Instructed patient to increase dietary fiber and educated patient on foods rich in fiber. Assessment & Plan (06/02/2024 4:31 PM PROMOTIONS TEAM LEADER): Patient reports 2 wk hx of watery [...] infected Assessment & Plan (06/02/2024 2:32 PM PROMOTIONS TEAM LEADER): Patient's new RLE wound appears most c/w [...] 06/19/2023 Assessment & Plan (06/19/2023 12:59 PM PROMOTIONS TEAM LEADER): On scalp-L parietal, nummular. Another circular flesh-colored [...] 05/10/2023 Assessment & Plan (06/06/2023 2:46 PM PROMOTIONS TEAM LEADER): Mildly below baseline, but also iso recent hospitalization / AKA. No signs/symptoms of bleeding today. Would repeat CBC next visit. Assessment & Plan (05/13/2023 6:05 AM CDT): - 1u PRBC given 05/10 intra-op and again 05/11 - hgb stable in 9s - daily CBC PAD (peripheral artery disease) 05/09/2023 Arterial insufficiency of lower extremity 2022 Assessment & Plan (06/23/2025 8:52 AM PROMOTIONS TEAM LEADER): Orders: Ambulatory referral to Home Health; Future Comprehensive metabolic panel; Future Transthoracic Echo (TTE) Complete W Doppler/CF; Future Assessment & Plan (05/16/2023 6:03 AM CDT): - Admit to Vascular from ER - OR 05/09 for LLE angiogram -> Selective LLE angiogram demonstrating patent L MONOTYPE MECHANIC, occl bypass just distal to origin, patent profunda, heavily diseased SFA with occlusion distally and reconstitution of TPT with peroneal-dominant outflow, sluggish PT, AT occluded. Multiple attempts to cross distal fem-pop HOG DRIVER unsuccessful - Venous duplex, CHATA arterial Doppler ordered - s/p OR for AKA 05/10 - PT/OT, OR dressing down on POD2 - nazia consulted for [facility] - Awaiting Rehab placement. Wound of foot [...] management. Assessment & Plan (07/07/2023 11:27 AM PROMOTIONS TEAM LEADER): Euvolemic on exam Losartan stopped at recent [...] scheduled Assessment & Plan (06/19/2023 12:51 PM PROMOTIONS TEAM LEADER): Soft diastolic BP 06/19, patient asx. Last [...] needed. Assessment & Plan (06/06/2023 2:38 PM PROMOTIONS TEAM LEADER): 06/05/23 soft BPs, mild-mod symptoms (e.g. lightheadedness), [...] weights, low Na diet, telemetry -Currently awaiting [facility] bed/authorization Assessment & Plan (01/12/2023 12:00 PM [...] 08/19/2022 Assessment & Plan (08/22/2022 11:14 AM PROMOTIONS TEAM LEADER): -does not appear to be parkinsonian -refer [...] (07/28/2021): Added automatically from request for surgery [id number] Assessment & Plan (08/24/2021 12:13 PM PROMOTIONS TEAM LEADER): 08/24: s/p placement of a R SFA [...] hospitalization Assessment & Plan (07/31/2024 10:20 PM PROMOTIONS TEAM LEADER): PLAN: - Consider wellbutrin and NRT on [...] water Assessment & Plan (09/03/2018 4:04 PM PROMOTIONS TEAM LEADER): No concern for BPH. Likely 2/2 regular [...] 07/26/24 Assessment & Plan (07/11/2025 12:21 PM PROMOTIONS TEAM LEADER): Orders: Basic metabolic panel; Future Assessment & Plan (07/31/2024 10:23 PM PROMOTIONS TEAM LEADER): PLAN: Encouraged to obtain shingles and RSV vaccines Assessment & Plan (06/02/2024 2:35 PM PROMOTIONS TEAM LEADER): PLAN: - Influenza, COVID, and PCV20 vaccination [...] 54. Assessment & Plan (07/13/2018 5:14 PM PROMOTIONS TEAM LEADER): -flu shot Anxiety and depression 01/15/2018 Overview (06/19/2023): Currently on venlafaxine 150mg, trazadone 200mg QHS. Previously on Xanax 0.5mg BID PRN, self tapered Assessment & Plan (06/02/2024 2:29 PM PROMOTIONS TEAM LEADER): Patient reports depressed mood in the setting of current health issues. Denies SI. Expressed interest in talk therapy. PLAN: - Continue current regimen - Provided copy of [facility] Behavioral Health resources - Consider augmentation of regimen at next appt Assessment & Plan (06/19/2023 1:04 PM PROMOTIONS TEAM LEADER): Reports ongoing anxiety and decreased mood in the setting of his recent health problems. No SI. States he will consider CBT after thanksgiving. Not interested in med adj at this time. - provided brief counseling and number for [facility] - recheck mood next visit - cont [...] BID Assessment & Plan (08/22/2022 11:17 AM PROMOTIONS TEAM LEADER): -started on alprazolam during recent hospitalization and [...] 10/13/2023: Creatinine 0.80 Eyes: follows with an addresser in [place], last saw in 2022 ACEi / ARB: [...] >250s Assessment & Plan (07/31/2024 10:19 PM PROMOTIONS TEAM LEADER): Patient states that he does not eat much food for dinner, and most of patient's hypoglycemic episodes occur in income tax consultant. PLAN: - Decrease dinner time insulin aspart from 4u to 2u - Decrease insulin glargine from 6u to 5u as previously prescribed - Continue insulin aspart 4u breakfast and lunch Assessment & Plan (06/02/2024 2:43 PM PROMOTIONS TEAM LEADER): Patient reports having more above range BGs during the day frequently requiring correction and still some income tax consultant hypoglycemic episodes. PLAN: - Decrease glargine from [...] 150) Assessment & Plan (10/06/2023 9:44 AM PROMOTIONS TEAM LEADER): Following with Endocrinology A1C 7.7% today Remains on lantus and SSI, tolerating without complication No changes to regimen today Assessment & Plan (06/19/2023 12:56 PM PROMOTIONS TEAM LEADER): 06/05/23 stopping empa due to contraindication in this patient with PAD / recent amputation. GLP1-RA contraindicated given Hx pancreatitis. - cont metformin - cont glargine 10 for now given he has had both significant lows to 60s and highs to 460. - Ordered CGM - Endo appt end of May Assessment & Plan (06/06/2023 2:42 PM PROMOTIONS TEAM LEADER): 06/05/23 stopping empa due to contraindication in this patient with PAD / recent amputation. GLP1-RA contraindicated given Hx pancreatitis. Monitor glucoses and consider uptitration of basal insulin if appropriate. Continue metformin 36407 BID. Needs to remain on pred for [...] intake Assessment & Plan (08/09/2018 1:50 PM PROMOTIONS TEAM LEADER): -continue current regimen -instructed pt to continue to hold mealtime insulin if he is not going to eat a full meal 2/2 his abdominal pain -bilateral feet with significant sensory and proprioceptive neuropathy and calluses. Will write for diabetic shoes Assessment & Plan (07/13/2018 5:01 PM PROMOTIONS TEAM LEADER): Diabetes is improving with treatment. Continue current [...] -continue metformin 1000 mg BID -referral to para educator Assessment & Plan (01/15/2018 12:14 PM [...] regimen Assessment & Plan (08/09/2018 1:46 PM PROMOTIONS TEAM LEADER): BP 120/65 on manual recheck -continue current regimen -instructed patient to hold his ramipril if he experiences any more orthostatic symptoms, especially if he is not eating/drinking well Assessment & Plan (07/13/2018 5:00 PM PROMOTIONS TEAM LEADER): Hypertension is improving with treatment. Weight loss. [...] cessation. Assessment & Plan (10/06/2023 9:33 AM PROMOTIONS TEAM LEADER): Received prosthetic, working on final fitting Following with vascular surgery Assessment & Plan (07/07/2023 11:25 AM PROMOTIONS TEAM LEADER): - Follow-up with Vascular surgery schedule in two months - Pt working on fu with pain management - Initiation of chronic narcotics as elsewhere - Will work on obtaining approval for a prosthesis - Cont medications as prescribed, no changes at this time Assessment & Plan (06/19/2023 12:54 PM PROMOTIONS TEAM LEADER): - Saw Vascular surg 06/05: working on [...] BKA and participating in physical therapy. A [facility] rep will visit the patient and [...] medications: oxycodone 5 mg BID prn; hydrocodone/APAP ([id number], d/c'd due to increasing requirement), amitriptyline d/c'd [...] taper Assessment & Plan (07/31/2024 10:06 PM PROMOTIONS TEAM LEADER): Patient reports worsening of his chronic pain since tapering of opioids and increased reliance on MJ for pain management. PLAN: - Encouraged patient to schedule with pain management - Increase gabapentin from 300 to 600 TID Assessment & Plan (06/02/2024 1:56 PM PROMOTIONS TEAM LEADER): PLAN: - Pain management profile performed today [...] desires. Assessment & Plan (10/06/2023 11:57 AM PROMOTIONS TEAM LEADER): Cont chronic narcotics, recently refilled at TEAM visit Taper venlafaxine like described above Assessment & Plan (07/07/2023 11:48 AM PROMOTIONS TEAM LEADER): - Plan to restart chronic Oxycodone 5 [...] control Assessment & Plan (06/19/2023 12:59 PM PROMOTIONS TEAM LEADER): Filled #10 patches on 06/15 (initially ordered [...] 07/07 Assessment & Plan (06/06/2023 2:43 PM PROMOTIONS TEAM LEADER): In setting of recent AKA / post-op pain, currently being managed by vascular surgery, who is continuing fentanyl patches + oxycodone at present. Continue without morphine at this time, though anticipate transition back to it in the future. Assessment & Plan (05/15/2023 9:26 AM CDT): Acute on chronic pain. Chronic pain managed by [facility] Internal Medicine clinic - Home regimen Morphine [...] once daily, #30 tablet sent 12/14 to [facility] in [place]. Assessment & Plan (12/13/2022 5:09 PM CDT): [...] cannot be on both methadone and hydrocodone jail. -f/u in one month for refills -UDS [...] lifespan Assessment & Plan (09/03/2018 3:52 PM PROMOTIONS TEAM LEADER): -refilled methadone 5 mg PO 2 tabs in qAM, 1 tab in afternoon, 2 tabs qPM (#115) -received letter in mail about his methadone requiring a prior auth. When I completed the prior auth online via [employer], it says that he has already been approved Assessment & Plan (08/09/2018 1:45 PM PROMOTIONS TEAM LEADER): -refilled methadone 5 mg (#150 pills) -new Medicare Part D prescription plan required prior auth. Pt only able to get 7 days of methadone at this time. Called [facility] and obtained prior auth (Case #[id number] with dates 07/31/18 - 08/09/19 and [id number] with dates 07/31/18 - 08/09/19) -will need to come back in 1 week for methadone Rx for 21 days. He has a f/u appt with ms 09/03/18. Assessment & Plan (07/13/2018 5:03 PM PROMOTIONS TEAM LEADER): -UDS ordered -methadone refilled Assessment & Plan (04/06/2018 2:07 PM CDT): Last refilled methadone around 03/15. No red flags -UDS today -methadone refill handed to patient with do not fill before 04/14 -filled out [place] disabled parking placard and [place] to [facility] Assessment & Plan (01/15/2018 12:07 PM [...] carvedilol. Assessment & Plan (10/06/2023 9:27 AM PROMOTIONS TEAM LEADER): No active chest pain, CTM Following with [...] 04/10/2024 Assessment & Plan (10/06/2023 11:56 AM PROMOTIONS TEAM LEADER): Currently on venlafaxine 150 Been on this [...] provided resources for [place] resources [place] - Discussed additional pharmacotherapy options, can trial duloxetine or different SSRI if symptoms don't improve Hyperkalemia 06/06/2023 07/07/2023 Assessment & Plan (06/06/2023 2:44 PM PROMOTIONS TEAM LEADER): K 5.1. On losartan 12.5. We will [...] (06/09/2020): Added automatically from request for surgery [id number] Other dysphagia 09/20/2019 08/25/2021 Leukocytosis 05/20/2019 08/07/2022 [...] PM CDT): Following with Dr. Contreras at [facility], f/u scheduled 11/2022 Cont current prednisone [...] wear Orthopedic surgeon is Dr. Hong at [facility] [place] Assessment & Plan (12/20/2018 11:59 AM CDT): [...] gel Assessment & Plan (09/03/2018 3:49 PM PROMOTIONS TEAM LEADER): -XR of R tib/fib and knee unremarkable [...] 09/19/18 Assessment & Plan (09/03/2018 4:10 PM PROMOTIONS TEAM LEADER): Resolved. Has been pain free for a [...] 08/12-08/14/16, at which point prescribed creon supplements, [id number] TID with meals. No significant alcohol abuse [...] Date Type Department Care Team Description 07/16/2025 2:00 PM PROMOTIONS TEAM LEADER Home Care Visit [facility] - [address] [place] [id number] Deann Glaeano RN SN HOME VISIT 07/16/2025 Telephone [facility] Medicine Cardiology [address] [facility] 8th [place] [address] [place] [address] Murali hCandra MD 07/15/2025 2:45 PM PROMOTIONS TEAM LEADER - 07/15/2025 11:59 PM PROMOTIONS TEAM LEADER Hospital Encounter [facility] Cardiac Diagnostic Lab [address] [facility] 8th [place] [address] Arterial insufficiency of lower extremity Discharge Disposition: Discharge to home or self care 07/15/2025 Telephone [facility] Medicine Surgery [address] [facility] Floor 1 [place] [phone] Koko Cintron MD 07/15/2025 Orders Only [facility] Medicine Clinic [address] [place] [address] Health [address] [place] [address] Harjeet Cintron MD Hx of AKA (above knee amputation), left (HCC) (Primary Dx) 07/14/2025 2:30 PM PROMOTIONS TEAM LEADER Office Visit [facility] [address] [facility] 8th [place] [address] [place] [address] Koko Cintron MD Encounter for surgical aftercare following surgery on the circulatory system (Primary Dx) 07/14/2025 1:45 PM PROMOTIONS TEAM LEADER Ancillary Procedure [facility] at the [facility] [address] 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 13th [place] [address] [place] [address] Marlin Hedrick RMA JANNY ([employer]) 07/11/2025 12:31 PM PROMOTIONS TEAM LEADER - 07/11/2025 11:59 PM PROMOTIONS TEAM LEADER Hospital Encounter [facility] Radiology [address] [place] [address] Acute pain of right knee Discharge Disposition: Discharge to home or self care 07/11/2025 11:40 AM PROMOTIONS TEAM LEADER Clinical Support [facility] Residents [facility] Diabetic Center [address] [place] [address] 07/11/2025 10:45 AM PROMOTIONS TEAM LEADER Office Visit [facility] [address] [place] [address] [address] [place] [address] Laura Bravo MD Healthcare maintenance (Primary Dx); Acute pain of right knee; Tobacco use; ILD (interstitial lung disease) ([facility]) 07/10/2025 11:00 AM PROMOTIONS TEAM LEADER Home Care Visit [place] [address] [address] [place] [address] Deann Galeano RN SN HOME VISIT 07/10/2025 Telephone [facility] [address] [place] [address] [place] [address] Harjeet Cintron MD Additional Services Or Orders (/) 07/07/2025 10:00 AM PROMOTIONS TEAM LEADER Home Care Visit [place] [address] [address] [place] [address] Deann Galeano RN SN HOME VISIT 07/04/2025 1:30 PM PROMOTIONS TEAM LEADER Home Care Visit [place] [address] [address] [place] [address] Linda Akbar SN HOME VISIT 07/02/2025 Telephone [facility] Medicine Endocrinology Metabolism and Lipid [address] [facility] Medicine 13th [place] [address] [place] [phone] Marlin Hedrick RMA JANNY\ ([facility] [employer]) 07/02/2025 Telephone [facility] Medicine Endocrinology Metabolism and Lipid [address] [facility] 13th [place] [address] [place] [phone] Marlin Hedrick RMA Prior Auth (Dexcom G7 Sensor and Reciever) 07/01/2025 10:00 AM PROMOTIONS TEAM LEADER Home Care Visit [address] [place] [address] Beronicavicente Linda SN HOME VISIT 07/01/2025 Telephone [facility] [address] [place] [address] Outpatient Health [address] [place] [address] Amanda Paiz, RN 07/01/2025 Home Care Visit [address] [place] [address] Deann Galeano RN CARE CONFERENCE 06/30/2025 Telephone [facility] Metabolism and Lipid [address] [facility] Floor 1, [address] [place] [address] Carina Fair RN Prior Auth (FreeStyle Demetrius 3 Plus Sensor) 06/30/2025 Home Care Visit [address] [place] [address] Autumn Flynn, RN WOCN CONSULT 06/29/2025 11:00 AM PROMOTIONS TEAM LEADER Home Care Visit [address] [place] [address] Deann Galeano, BARTOLOME SN OASIS START OF CARE 06/29/2025 Plan of Care Documentation [place] [address] [address] [place] [address] [place] [address] Meghann Kitchen, BARTOLOME Home Health 2025 Telephone [facility] [address] [place] [address] Outpatient Health [address] [place] [address] Amanda Paiz, RN Follow-up 2025 Telephone [facility] [address] [place] [address] Outpatient Health [address] [place] [address] Harjeet Cintron MD Follow-up 06/20/2025 1:00 PM PROMOTIONS TEAM LEADER Lab [facility] [address] [place] [address] Arterial insufficiency of lower extremity 06/20/2025 11:15 AM PROMOTIONS TEAM LEADER Office Visit [facility] [address] [facility] [address] [place] [address] Arterial insufficiency of lower extremity (Primary Dx) 06/20/2025 Telephone [facility] Medicine Endocrinology Metabolism and Lipid [address] [facility] 13th [place] [address] [place] [address] Marlin Hedrick RMA ROI ([facility]) 06/06/2025 Nurse Triage [facility] Specialty Services [address] [place] [phone] Anna Tatum RN 06/06/2025 Orders Only [facility] Medicine Surgery [facility] 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 8th [place] [address] [place] [address] Koko Cintron MD 06/06/2025 Telephone [facility] Medicine Cardiology [facility] 8th [place] [address] [place] [address] Murali Chandra MD Wound 05/09/2025 12:45 PM CDT Lab [address] [address] Irritable bowel syndrome with diarrhea 05/09/2025 11:15 AM CDT Office Visit [facility] [address] [facility] [address] [place] [address] Irritable bowel syndrome with diarrhea (Primary Dx) 05/05/2025 Nurse Triage [facility] Specialty Services [address] [place] [address] Barbara Le RN from Last 3 Months Immunizations Immunization Administration Dates Next Due COVID-19 mRNA ([employer]) 0.3 m L (30 mcg) vaccine (12 [...] 06/05/2023 Surgical History Surgery Date Site/Laterality Comments [place] BYP OTH/THN VEIN FEMORAL-POPLITEAL Bypass Graft (Non-vein) [...] Added autom atically from request for surgery [id number] Hypokalemia 01/09/2023 Hyperkalemia 06/06/2023 Transaminitis 01/14/2023 Family [...] 05/11/2023 How often do you attend [employer]ur [employer] or religion services? Never 05/11/2023 Do you belong to any clubs o r organizations such as jew groups, unions, fraternal or athletic groups, or [...] in a fci (including now)? No 05/11/2023 AUDIT-C Answer Date [...] file Legal Sex Male 1:17 AM PROMOTIONS TEAM LEADER Gender Identity Not on file Sexual Orientation Not on file Last Filed Vital Signs Vital Sign Reading Time Taken Comments Blood Pressure 110/62 07/14/2025 2:08 PM PROMOTIONS TEAM LEADER Pulse 67 07/14/2025 2:08 PM PROMOTIONS TEAM LEADER Temperature 36.4 C (97.5 F) 07/11/2025 11:04 AM PROMOTIONS TEAM LEADER Respiratory Rate 18 07/11/2025 11:04 AM PROMOTIONS TEAM LEADER Oxygen Saturation 99% 07/14/2025 2:08 PM PROMOTIONS TEAM LEADER w/ o2 tank Inhaled Oxygen Concentration - - Weight 72.1 kg (159 lb) 07/14/2025 2:08 PM PROMOTIONS TEAM LEADER Height 177.8 cm (5' 10) 06/29/2025 10:54 AM PROMOTIONS TEAM LEADER Body Mass Index 22.81 06/29/2025 10:54 AM PROMOTIONS TEAM LEADER Plan of Treatment Scheduled Procedures Name Priority [...] Cancer Screening 11/03/2024 11/03/2023, 022 Covid-19 Vaccine (2024-2 6 season) 2025 05/31/2024, 07/02/2021, 10/20/2020, Additional history exists Hemoglobin A1C 01/09/2026 07/11/2025, 042 11/2024, 04/05/2024, Additional history exists Depression Screening 02/05/2026 02/05/2025, 05/08/20 23 Albumin Creatinine Ratio, Urine 02/07/2026 02/07/2025, 02/12/2024, 09/09/2022, Additional history exists Foot Exam 02/07/2026 02/07/2025, 06/01, 11/22/2018 Lipid Panel 02/07/2026 02/07/2025, 08/31, 10/25/2018, Additional history exists eGFR 06/20/2026 06/20/2025, 01/28, 10/13/2023, Additional history exists Colon Cancer Screening-Colonoscopy [...] Care Management No change(09/20 9:23 AM PROMOTIONS TEAM LEADER) No Marla Sheppard, RN Note: Problem: Chronic Pain// ABD pain, legs Goals: 1. Minimize further functional decline 2. Maximize quality of life 3. Control pain Strategies: - Activity/exercise program recommendation - Conservative stepwise pain medicine strategy with multi-disciplinary approach - Recommend healthy lifestyle strategies and compensatory methods as needed Medical Devices Implanted Type Area Licensed Dispensing Optician Device Identifier Shelf Expiration Date Model / Serial / Lot [employer] Shopper Medical Mahendra Angio-Seal Vip 6fr Closere Device [id number] - [id number] - [id number] Implanted:Qty : 1 on 03/24/2023 by Igor Hall MD at [facility] Collagen Right: Femoral [employer] Mahendra 10/29/2023 [id number] / [id number] / [id number] Stent Stent Right: Neck [id number] [id number] Stent System [email or web address] 3d Vascular [id number] - [id number] Implanted:Qty : 1 on 08/24/2021 by Koko Cintron MD at [facility] Stent [employer] 10/26/2021 [id number] / / [id number] NeurogesX [id number] Stent System [email or web address] 3d Vascular [id number] - [id number] Implanted:Qty : 1 on 08/24/2021 by Koko Cintron MD at [facility] [employer]ent [employer] 08/08/2022 [id number] / / [id number] Procedures Procedure Name Priority Date/Time Associated Diagnosis Comments TRANSTHORACIC ECHO (TTE) COMPLETE W DOPPLER/CF W CONTRAST Routine 07/15/2025 4:12 PM PROMOTIONS TEAM LEADER Arterial insufficiency of lower extremity US VEIN DUPLEX LOWER EXTREMITY RIGHT LIMITED Schedule Routine, Read Routine (OP Routine) 07/14/2025 1:58 PM PROMOTIONS TEAM LEADER 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) Encounter for follow-up examination after completed treatment for conditions other than malignant neoplasm US ARTERIAL DOPPLER LOWER EXTREMITY BILATERAL Schedule Routine, Read Routine (OP Routine) 07/14/2025 1:58 PM PROMOTIONS TEAM LEADER 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) Encounter for surgical aftercare following surgery on the circulatory system XR KNEE RIGHT 1 OR 2 VIEWS Schedule Routine, Read Routine (OP Routine) 07/11/2025 12:50 PM PROMOTIONS TEAM LEADER Acute pain of right knee POCT GLUCOSE DEVICE Routine 07/11/2025 11:09 AM PROMOTIONS TEAM LEADER POCT HEMOGLOBIN A1C Routine 07/11/2025 11:09 AM PROMOTIONS TEAM LEADER EGFR Routine 06/20/2025 1:07 PM PROMOTIONS TEAM LEADER Arterial insufficiency of lower extremity COMPREHENSIVE METABOLIC PANEL Routine 06/20/2025 1:07 PM PROMOTIONS TEAM LEADER Arterial insufficiency of lower extremity IGA Routine 05/09/2025 12:50 PM CDT Irritable bowel syndrome with diarrhea TISSUE TRANSGLUTAMINASE, IGA Routine 05/09/2025 12:50 PM CDT Irritable bowel syndrome with diarrhea LIPID PANEL Routine 02/07/2025 9:47 AM CDT Type 2 diabetes mellitus with diabetic neuropathy, unspecified whether jail insulin use (HCC) ALBUMIN CREATININE RATIO, URINE Routine 02/07/2025 9:47 AM CDT Type 2 diabetes mellitus with diabetic neuropathy, unspecified whether manager long term care insulin use (HCC) CT LUNG CANCER SCREENING Schedule Routine, Read Routine (OP Routine) 11/03/2023 11:21 AM CDT Encounter for screening for lung cancer CTA ABDOMINAL AORTA AND BILATERAL ILIOFEMORAL RUNOFF ED Urgent/IP Urgent 05/08/2023 8:14 PM CDT COLONOSCOPY 01/09/2023 11:19 AM CDT PSA, TOTAL AND FREE Routine 07/22/2019 10:21 AM PROMOTIONS TEAM LEADER Unintentional weight loss Leukocytosis, unspecified type HEPATITIS PANEL, ACUTE After X-Ray 01/23/2017 10:58 AM CDT from Last 3 Months or Most Recently Relevant to Health Maintenance Results * TRANSTHORACIC ECHO (TTE) COMPLETE W DOPPLER/CF W CONTRAST (07/15/2025 4:12 PM PROMOTIONS TEAM LEADER) EF Mod BP 52 % CONS SCIMAGE Anatomical Region Laterality Modality Ultrasound 07/15/2025 2:56 PM PROMOTIONS TEAM LEADER Narrative 07/16/2025 10:42 AM PROMOTIONS TEAM LEADER [facility] [place] [address] Transthoracic Echocardiographic Report Patient Name: DOMINGO COOPER E : 1955 (70y ) Sex: M Study Date: 07/15/2025 02:56:29 PM Ht(Inch): 70 Wt(Lb): 158.95 BSA: 1.89 Aligner Barrel And Receiver: [facility] Location: [facility] Order Provider: CARLOS A COHEN Heart [...] LA Length 4C 6.9 cm AI Decel Valencia 3 m/s2 LA Length 2C 6.8 cm [...] By: Mello Gomez M.D. 07/16/2025 10:42:07 AM PROMOTIONS TEAM LEADER Procedure Note Mello Gomez MD PhD - 07/16/2025 [facility] [place] [address] Transthoracic Echocardiographic Report Patient Name: DOMINGO COOPER E : 1955 (70y ) Sex: M Study Date: 07/15/2025 02:56:29 PM Ht(Inch): 70 Wt(Lb): 158.95 BSA: 1.89 Aligner Barrel And Receiver: RAMESH Li[facility] Location: [facility] Order Provider:CARLOS A COHEN Heart Rate: [...] [ -25.0 - -18.0 ] AI Decel [id number] sec LA Length 4C 6.9 cm AI Decel Slope3 m/s2 LA Length 2C 6.8 cm AI [id number] msec LA Volume BP 113 ml RV S`12.5 cm/sec LA Volume Index 60 ml/m2 [ 16 - 34 ] TR Peak Vel3.4 m/s [ 1.0 - 2.8 ] RV Base Dimen 2D 4.3 cm [ 2.5 - 4.2 ] TR Peak PG46 mmHg RV Mid Dimen 2D 3.1 cm TR [id number] cm RV ED Area 20 cm2 [ 10 - 24 ] RV ES Area 12 cm2 [ 3 - 15 ] RV FAC 39 % [ 35 - 63 ] TAPSE 2.5 cm [ 1.7 - 5.0 ] RA Nasyut41 ml RA Volume Index33 ml/m2 IVC Diam2.0 cm IVC Collapse 22.5 % AoR Diam 2D 3.6 cm [ 3.1 - 3.7 ] Ao Root Index 1.9 cm/m2 [ 1.0 - 2.0 ] Asc Ao Diam 2D4.0 cm Asc Ao Index2.1 cm/m2 Electronically Signed By: Mello Gomez M.D. 07/16/2025 10:42:07 AM PROMOTIONS TEAM LEADER us Carlos A Cohen MD CV ECHO PROCEDURES Final Result * US Vein Duplex Lower Extremity Right Limited, Unilateral (07/14/2025 1:58 PM PROMOTIONS TEAM LEADER) Anatomical Region Laterality Modality Vascular Right Ultrasound 07/14/2025 1:25 PM PROMOTIONS TEAM LEADER Narrative 07/15/2025 8:55 AM PROMOTIONS TEAM LEADER [facility] - Department of Vascular Surgery, Vascular Laboratory [address] [place] [address] Lower Extremity Venous Ultrasound Report Patient Name: DOMINGO COOPER E : 1955 (70y ) Study Date: 07/14/2025 1:25:01 PM Sex: M Tech: DB Location: [facility] Ref Provider: KOKO CINTRON Quality: Adequate [...] conditions other than malignant neoplasm. FINDINGS: Performing Aligner Barrel And Receiver: Dior Nassar RVT. Right: Venous Doppler signals [...] Koko Cintron MD FACS 07/15/2025 7:48:58 AM PROMOTIONS TEAM LEADER Procedure Note Koko Cintron MD - 07/15/2025 [facility] - Department of Vascular Surgery,Vascular Laboratory [address] [place] [address] Lower Extremity Venous Ultrasound Report Patient Name: DOMINGO COOPER E : 1955 (70y ) Study Date: 07/14/2025 1:25:01 PM Sex: M Tech: DB Location: [facility] Ref Provider: KOKO CINTRON Quality: Adequate [...] forconditions other than malignant neoplasm. FINDINGS: Performing Aligner Barrel And Receiver: Dior Nassar RVT. Right: Venous Doppler signals [...] above. Electronically Signed By: Koko Cintron MD [facility] 07/15/2025 7:48:58 AM PROMOTIONS TEAM LEADER us Koko Cintron MD [facility] US PROCEDURES Final R esult * US Arterial Doppler Lower Extremity Bilateral (07/14/2025 1:58 PM PROMOTIONS TEAM LEADER) Anatomical Region Laterality Modality Vascular Bilateral Ultrasound 07/14/2025 1:37 PM PROMOTIONS TEAM LEADER Narrative 07/15/2025 12:41 AM PROMOTIONS TEAM LEADER [facility] - Department of Vascular Surgery, Vascular Laboratory [address] [place] [address] Lower Extremity Arterial Doppler Report Patient Name: DOMINGO COOPER E : 1955 Study Date: 07/14/2025 1:37:00 PM Sex: M Tech: Dior Nassar RVT Location: [facility] Provider: KOKO CINTRON Quality: Adequate Order [...] mmHg Lt Brachial Pressure 107 mmHg Rt CYTOGENETICS TECHNOLOGIST Pressure 158 mmHg Rt DPA Pressure 79 mmHg Rt 1st Digit Pressure 26 mmHg Rt PT CHATA Resting 1.48 Rt AT CHATA Resting 0.74 Rt Digit/Arm Index 0.24 Right Value Units Left Value Units FINDINGS: Performing Aligner Barrel And Receiver: Dior Nassar RVT. Right Common Femoral Artery [...] Koko Cintron MD FACS 07/14/2025 11:46:31 PM PROMOTIONS TEAM LEADER Procedure Note Koko Cintron MD - 07/15/2025 [facility] - Department of Vascular Surgery,Vascular Laboratory [address] [place] [address] Lower Extremity Arterial Doppler Report Patient Name: DOMINGO COOPER E : 1955 Study Date: 07/14/2025 1:37:00 PM Sex: M Tech: Dior Nassar [facility] Location: [facility] Ref Provider: KOKO CINTRON Quality: Adequate Order Provider: KOKO CINTRON PROCEDURES: Arterial Report: Bilateral lower extremity arterial Doppler exam at rest. 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 MEASUREMENTS: Right Value Units Left Value Units Rt Brachial Pressure 104 mmHg Lt Brachial Pressure 107 mmHg Rt CYTOGENETICS TECHNOLOGIST Pressure 158 mmHg Rt DPA Pressure 79 mmHg Rt 1st Digit Pressure 26 mmHg Rt PT CHATA Resting 1.48 Rt AT CHATA Resting 0.74 Rt Digit/Arm Index 0.24 Right Value Units Left Value Units FINDINGS: Performing Aligner Barrel And Receiver: Dior Nassar [facility]. Right Common Femoral Artery Analysis: The common [...] above. Electronically Signed By: Koko Cintron MD [facility] 07/14/2025 11:46:31 PM PROMOTIONS TEAM LEADER us Koko Cintron MD IMG US PROCEDURES Final R esult * XR Knee Right 1 or 2 Views (07/11/2025 12:50 PM PROMOTIONS TEAM LEADER) Anatomical Region Laterality Modality Lower Extremities, Knee Right Computed Radiography 07/11/2025 1:55 PM PROMOTIONS TEAM LEADER Impressions 07/11/2025 1:55 PM PROMOTIONS TEAM LEADER Modular total right knee arthroplasty in near anatomic position with healed proximal right tibial periprosthetic fracture. Electronically signed by: Nick Gonzalez MD [facility] 07/11/2025 1:55 PM PROMOTIONS TEAM LEADER EXAMINATION: XR KNEE RIGHT 1 OR 2 [...] (ABNORMAL) POCT hemoglobin A1c (07/11/2025 11:09 AM PROMOTIONS TEAM LEADER) Hgb A1C, POC 6.3(H) 4.0 - 5.6 % Est Average Gluc POC 134 mg/dL [facility] Comment: The ADA recommends reporting an estimated Average Glucose (eAG) with all Hemoglobin A1c results using the equation derived from a study of 507 normal and diabetic adults. Minority populations were underrepresented and children were not included. (Diabetes Care 31:4589-7060, 2008). The eAG is not equivalent to a fasting glucose. Blood 07/11/2025 11:0 9 AM PROMOTIONS TEAM LEADER 07/11/2025 11:09 AM PROMOTIONS TEAM LEADER us Laura Bravo MD POINT OF CARE TEST ORDERABLES Fi nal Result Performing Organization Address [facility] Co de Phone Number [facility] [place] [place] [address] * (ABNORMAL) POCT glucose (07/11/2025 11:09 AM PROMOTIONS TEAM LEADER) Pathologist [facility] Glucose, POC 286(H) 70 - 199 mg/dL Blood 07/11/2025 11:0 9 AM PROMOTIONS TEAM LEADER 07/11/2025 11:09 AM PROMOTIONS TEAM LEADER us Laura Bravo MD LAB POCT ORDERABLES - DEVICE Fin al Result Performing Organization Address City/[facility]/ZIP Co de Phone Number [facility] [place] [place] [address] * eGFR (06/20/2025 1:07 PM PROMOTIONS TEAM LEADER) eGFR >90 >=60 mL/min/1. 73 m2 Comment: [...] last reviewed 2021. Blood 06/20/2025 1:07 PM PROMOTIONS TEAM LEADER 06/20/2025 2:37 PM PROMOTIONS TEAM LEADER us Carlos A Cohen MD LAB BLOOD ORDERABLES [place] lock Result [facility] One [facility] Department [place] [address] * (ABNORMAL) Comprehensive metabolic panel (06/20/2025 1:07 PM PROMOTIONS TEAM LEADER) Sodium 139 135 - 145 mmol/L Potassium, pl 4.4 3.3 - 4.9 mmol/L [facility] Chloride 95(L) 97 - 110 mmol/L [facility] CO2 38(H) 22 - 32 mmol/L [facility] Anion gap 6 2 - 15 mmol/L [facility] BUN 16 6 - 25 mg/dL [facility] Creatinine 0.79(L) 0.80 - 1.30 mg/dL [facility] Glucose 121 70 - 199 mg/dL [facility] Comment: Interpretive Data Fasting glucose >/= 126 [...] 2022. Calcium 8.1(L) 8.5 - 10.3 mg/dL [facility] Bilirubin, total 0.9 0.1 - 1.2 mg/dL [facility] Protein, pl 6.5 6.5 - 8.5 g/dL [facility] Albumin 3.5 3.5 - 5.0 g/dL [facility] Alk phos 68 40 - 130 Units/L [facility] ALT 17 7 - 55 Units/L [facility] AST 29 10 - 50 Units/L [facility] Blood 06/20/2025 1:07 PM PROMOTIONS TEAM LEADER 06/20/2025 2:26 PM PROMOTIONS TEAM LEADER us Carlos A Cohen MD LAB BLOOD ORDERABLES [place] l Result Performing Organization Address [facility] Co de Phone Number [facility] [place] [address] * Tissue transglutaminase IgA (TGG-IgA Ab) (05/09/2025 12:50 PM CDT) [facility] TTG ab, IgA <0.5 <=14.9 units/mL Comment: Interpretive data Negative: <15 units/mL Positive: > or equal to 15 units/mL Current interpretive data was last revised on 2016. Blood 05/09/2025 12:5 0 PM CDT 05/09/2025 2:07 PM CDT us Esteban Aragon MD LAB BLOOD ORDERABLES [place] l Result Performing Organization Address [facility] Co de Phone Number [facility] Department [place] [address] * IgA (05/09/2025 12:50 PM CDT) Immunoglobulin A 359 70 - 400 mg/dL Blood 05/09/2025 12:5 0 PM CDT 05/09/2025 2:07 PM CDT Esteban Aragon MD LAB BLOOD ORDERABLES [place] Result Performing Organization Address [facility] Phone Number [facility] [place] [address] * Albumin Creatinine Ratio, Urine (02/07/2025 9:47 AM CDT) Pathologist [facility] Albumin Ur <12.0 mg/L Comment: Interpretive Data No reference range established. Current interpretive data was last revised 2018. Creatinine Ur 15.1 mg/dL [facility] Comment: Interpretive Data No reference range established. Current interpretive data was last revised 2018. Albumin Creatinine Ratio, Ur See Comment 1 - 29 mg/g [facility] Comment:Unable to calculate Urine 02/07/2025 9:47 AM CDT 02/07/2025 10:19 AM CDT Shweta Urban NP LAB URINE ORDERABLES [place] l Result Performing Organization Address [facility] de Phone Number [facility] [place] [address] * (ABNORMAL) Lipid panel (02/07/2025 9:47 AM CDT) Pathologist [facility] Cholesterol 147 30 - 199 mg/dL Comment: [...] revised on 2018. Triglycerides 131 <=149 mg/dL [facility] Comment: Interpretive Data Ages < or = [...] revised on 2018. HDL 30(L) >=40 mg/dL [facility] Comment: Interpretive Data Ages < or = [...] on 2018. LDL, calculated 93 <=129 mg/dL [facility] Comment: Interpretive Data Ages < or = [...] NCEP Expert Panel. Circulation 2004;110:227 3. Chu Ross et al. EDWIN Cardiol. 2020 November 28;5(5):540-548. doi: 10.1001/jamacardio.2020.0013 Current Interpretive Data was last revised on 2024. Non-HDL Cholesterol 117 mg/dL [facility] Comment: Interpretive Data Ages < or = [...] last revised on 2018. Chol/HDL ratio 5 [facility] Blood 02/07/2025 9:47 AM CDT 02/07/2025 10:19 AM CDT Narrative [facility] - 02/07/2025 11:13 AM CDT These lab test should be done fasting. This means do not eat or drink for at least 12 hours prior to getting your blood drawn. us Shweta Urban NP LAB BLOOD ORDERABLES [place] lock Result [facility] One [facility] [place] [address] * CT Lung Cancer Screening (11/03/2023 11:21 [...] it. Electronically signed by: Jhon Rod M.D. us Thelma Lamar MD IMG CT PROCEDURES Final Re sult * COLONOSCOPY (01/09/2023 11:19 AM CDT) Anatomical Region Laterality Modality Other Narrative Procedure Note Radha Miranda MD - 01/09/2023 11:19 AM CDT [facility] Patient Name: Domingo Cooper Procedure Date: 01/09/2023 11:19 AM Date of : 1955 Admit Type: Inpatient Age: 67 Gender: Male Attending MD: Radha Miranda M.D. Room: [facility] OR POD 5 ROOM 229 Note [...] scope was passed under direct vision.The CF [id number] Endoscope was introduced through the anus [...] On: 01/09/2023 11:19 AM Recognized by the [employer] for promoting quality in endoscopy us Radha Miranda MD ENDOSCOPY PROCEDURES Final Res ult * PSA, total and free (07/22/2019 10:21 AM PROMOTIONS TEAM LEADER) PSA-free 0.1 ng/mL [facility] PSA-Total 0.52 [...] absence of malignant disease. Test Performed by: [facility] [address] [place] [address] Ton Container Shipper: Bob Sarkar M.D. Ph.D.; IA# [id number] Blood specimen (specimen) 07/22/2019 10:21 AM PROMOTIONS TEAM LEADER 07/22/2019 10:52 AM PROMOTIONS TEAM LEADER Sorin Santos MD LAB BLOOD ORDERABLES nal Result [facility] One [facility] Department [place] [address] * Hepatitis panel, acute (01/23/2017 10:58 AM CDT) Hep A IgM Nonreactive Nonreactive [facility] Comment: Interpretive Data If test is reported as GRAYZONE, new sample should be drawn in two weeks for testing. Current interpretive data was last revised on 2016. Hep B core IgM Nonreactive Nonreactive [facility] Comment: Interpretive Data If test is reported as GRAYZONE, new sample should be drawn for testing. Current interpretive data was last revised on 2016. Hep C Ab Nonreactive Nonreactive [facility] Comment: Interpretive Data Positive and greyzone results should be confirmed by a molecular method. If positive or greyzone, a second separately collected sample should be submitted for Hepatitis C Virus RNA. Detection and Quantitation by Real-Time Reverse [employer] Law Clerk-PCR.Current Interpretive data was last revised on 2017. HepBsAg Nonreactive Nonreactive [facility] Blood specimen (specimen) 01/23/2017 10:58 AM CDT 01/23/2017 12:08 PM CDT Rina Aviles NP LAB MICROBIOLOGY - GENERAL OR DERABLES Edited Result - Final [facility] One [facility] [place] [address] from Last 3 Months or Most Recently Relevant to Health Maintenance Insurance [facility] MEDICARE MEDICARE [place] [address] MEDICARE ANTHEM ACCESS CHOICE ANTHEM ACCESS CHOICE Advance Directives For more information, please contact: [phone] * LIMITED - No CPR (Latest Code [...] 4:59 PM 08/25/2021 1:56 PM Care Teams Standpipe Tender Relationship Specialty Start Date End Date Harjeet Cintron MD [address] [place] [address] PCP - General 01/20/24 Koko Cintron MD Surgeon Vascular Surgery 08/25/21
--- OUTSIDE RECORDS SUMMARY | 2025-07-16 15:53 | XMS_ITS | Encounter Summary ---
Author Organization [facility] Address [address] [place] [address] Phone Care Team Providers Care Surface Hydrologist Name Role Phone Amando Cintron MD Unavailable [phone] Harjeet Cintron MD Primary Care Prov ider Encounter Details Date Type Department Care Team (Late st Contact Info) Description 07/15/2025 Telephone [facility] Medicine Surgery [address] [facility] Floor [address] [place] [address] Amando Cintron MD [address] [facility] [address] [place], [place] [id number] Social History Tobacco Use Types Packs/Day Years [...] often do you attend chur ch or jainism services? Never 05/11/2023 Do you belong to any clubs o r organizations such as adventism groups, unions, fraternal or athletic groups, or [...] place to sleep or slept in a half-way (including now)? No 05/11/2023 AUDIT-C Answer Date [...] file Legal Sex Male 1:17 AM INSURANCE ACCOUNT ASSISTANT Gender Identity Not on file Sexual Orientation Not on file documented as of this encounter Miscellaneous Notes * Telephone Encounter - Maria Luisa Rice - 07/15/2025 2:38 PM CST Patient called and would like to know if he can have his knee drained when he gets done with his echo. Please return his call RANCE ACCOUNT ASSISTANT documented in this encounter Plan of Treatment [...] take, when to call CM or provider. [facility] Chronic Pain Care Plan Chronic Care Management No change(09/20 9:23 AM INSURANCE ACCOUNT ASSISTANT) No Marla Sheppard, RN Note: Problem: Chronic [...] on filedocumented in this encounter Care Teams Surface Hydrologist Relationship Specialty Start Date End Date Harjeet Cintron MD [address] [place] [address] PCP - General 01/20/24 Amando Cintron MD Surgeon Vascular Surgery 08/25/21 documented as of this encounter
--- OUTSIDE RECORDS SUMMARY | 2025-07-16 15:53 | XMS_ITS | Encounter Summary ---
Author Organization [facility] Healthcare Address [address] [place] [address] Care Team Providers Care Electric Meter Repairer Apprentice Name Role Phone Amando Cintron MD Unavailable Alfredo Negron MD Primary Care Provide r Angélica Boyd RN Unavailable Unavailable Rosalva Prince RN Unavailable [phone] Nisha Lepe RN Unavailable Harjeet Cintron MD Primary Care Prov ider Encounter Details Date Type Department Care Team (Late st Contact Info) Description 09/21/[address] 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 [facility] Chronic Pain Care Plan Chronic Care Management No change(09/20 9:23 AM HOTEL GUEST SERVICE AGENT) Marla Mcdaniel RN Note: Problem: Chronic Pain// [...] documented as of this encounter Care Teams Electric Meter Repairer Apprentice Relationship Specialty Start Date End Date Alfredo Negron MD PCP - General Internal Medicine 10/28/21 01/19/24 Harjeet Cintron MD [address] [place] [address] PCP - General 01/20/24 Amando Cintron MD Surgeon Vascular Surgery 08/25/21 Angélica Boyd, BARTOLOME Registered Nurse Pulmonary Disease 02/09/22 11/08/24 Rosalva Prince, BARTOLOME [address] [facility] [address] [place] [address] SHOP Outpatient Rig Site Engineer 01/03/23 01/15/23 Nisha Lepe RN [address] [place] [address] [address] [place] [address] Emergency Communications Operator 01/21/23 02/16/23 documented as of this encounter
--- OUTSIDE RECORDS SUMMARY | 2025-07-16 15:53 | XMS_ITS | Encounter Summary ---
Author Organization [facility] Healthcare Address [address] [place] [address] Care Team Providers Care Car Cooper Name Role Phone Amando Cintron MD Unavailable Alfredo Negron MD Primary Care Provide r Angélica Boyd RN Unavailable Unavailable Rosalva Prince RN Unavailable [phone] Nisha Lepe RN Unavailable [phone] Harjeet Cintron MD Primary Care Prov ider Encounter Details Date Type Department Care Team (Late st Contact Info) Description 09/14/[address] [facility] Primary Care Medicine Clinic [address] [facility] [address] [place] [address] Dewayne Valentine Social History Tobacco [...] on file Legal Sex Male 1:17 AM HEATING MECHANIC Gender Identity Not on file Sexual [...] than stopping them without telling anyone). [facility] Chronic Pain Care Plan Chronic Care Management No change(09/20 9:23 AM HEATING MECHANIC) Marla Mcdaniel RN Note: Problem: Chronic Pain// [...] documented as of this encounter Care Teams Car Cooper Relationship Specialty Start Date End Date Alfredo Negron MD PCP - General Internal Medicine 10/28/21 01/19/24 Harjeet Cintron MD [address] [place] [address] PCP - General 01/20/24 Amando Cintron MD Surgeon Vascular Surgery 08/25/21 Angélica Boyd RN Registered Nurse Pulmonary Disease 02/09/22 11/08/24 Rosalva Prince, BARTOLOME [address] [facility] [address] [place], [place] [id number] [facility] Outpatient Manager Web Application 01/03/23 01/15/23 Nisha Lepe, BARTOLOME [address] [place] [address] [address] [place] [address] Cleat Thrower 01/21/23 02/16/23 documented as of this encounter
--- OUTSIDE RECORDS SUMMARY | 2025-07-16 15:53 | XMS_ITS | Encounter Summary ---
Author Organization [facility] Healthcare Address [address] [place] [address] Care Team Providers Care Assistant Auto Center Manager Name Role Phone Amando Cintron MD Unavailable Alfredo Negron MD Primary Care Provide r Angélica Boyd RN Unavailable Unavailable Rosalva Prince RN Unavailable [phone] Nisha Lepe RN Unavailable Harjeet Cintron MD Primary Care Prov ider Encounter Details Date Type Department Care Team (Late st Contact Info) Description 09/22/2022 Telephone [facility] Primary Care Medicine Clinic [address] [facility] [address] [place] [address] Alfredo Negron MD [address] [facility] [address] [place] [address] Social History Tobacco Use Types Packs/Day Years [...] on file Legal Sex Male 1:17 AM 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 [facility] Chronic Pain Care Plan Chronic Care Management No change(09/20 9:23 AM KILN HEAD HOUSE OPERATOR) Marla Mcdaniel RN Note: Problem: Chronic [...] documented as of this encounter Care Teams Assistant Auto Center Manager Relationship Specialty Start Date End Date Alfredo Negron MD PCP - General Internal Medicine 10/28/21 01/19/24 Harjeet Cintron MD 1 [place] [address] PCP - General 01/20/24 Amando Cintron MD Surgeon Vascular Surgery 08/25/21 Angélica Boyd, BARTOLOME Registered Nurse Pulmonary Disease 02/09/22 11/08/24 Rosalva Prince, BARTOLOME [address] [facility] [address] [place] [address] SHOP Outpatient Manager Operations 01/03/23 01/15/23 Nisha Lepe RN [address] [place] [address] [address] [place] [address] Mechanical Service Specialist 01/21/23 02/16/23 documented as of this encounter
--- OUTSIDE RECORDS SUMMARY | 2025-07-16 15:53 | XMS_ITS | Encounter Summary ---
Author Organization [facility] Healthcare Address [address] [place] [address] Care Team Providers Care Poultry Debeaker Name Role Phone Amando Cintron MD Unavailable Alfredo Negron MD Primary Care Provide r Angélica Boyd RN Unavailable Unavailable Rosalva Prince RN Unavailable [phone] Nisha Lepe RN Unavailable Harjeet Cintron MD Primary Care Prov ider Encounter Details Date Type Department Care Team (Late st Contact Info) Description 09/19/2022 Telephone [facility] Primary Care Medicine Clinic [address] [facility] [address] [place] [address] Alfredo Negron MD [address] [facility] [facility] [address] [place] [address] Social History Tobacco Use Types Packs/Day Years [...] on file Legal Sex Male 1:17 AM MATERIAL HANDLING 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 [facility] Chronic Pain Care Plan Chronic Care Management No change(09/20 9:23 AM MATERIAL HANDLING CREW SUPERVISOR) Marla Mcdaniel RN Note: Problem: Chronic Pain// [...] documented as of this encounter Care Teams Poultry Debeaker Relationship Specialty Start Date End Date Alfredo Negron MD PCP - General Internal Medicine 10/28/21 01/19/24 Harjeet Cintron MD 1 [place] [address] PCP - General 01/20/24 Amando Cintron MD Surgeon Vascular Surgery 08/25/21 Angélica Boyd, BARTOLOME Registered Nurse Pulmonary Disease 02/09/22 11/08/24 Rosalva Prince, BARTOLOME [address] [facility] [address] [place] [address] SHOP Outpatient Escort Service Attendant 01/03/23 01/15/23 Nisha Lepe RN [address] [place] [address] [address] [place] [address] Gas Appliance Servicer Helper 01/21/23 02/16/23 documented as of this encounter
--- OUTSIDE RECORDS SUMMARY | 2025-07-16 16:46 | XMS_ITS | Encounter Summary ---
Author Organization [facility] Healthcare Address [address] [place] [address] Care Team Providers Care Maintenance Worker Name Role Phone Amando Cintron MD Unavailable Alfredo Negron MD Primary Care Provide r Angélica Boyd RN Unavailable Unavailable Harjeet Cintron MD Primary Care Prov ider Encounter Details Date Type Department Care Team (Late st Contact Info) Description 06/16/2023 Telephone [facility] Primary Care Medicine Clinic [address] [place] [address] Alfredo Negron MD [address] [place] [address] Social History Tobacco Use Types [...] any clubs o r organizations such as confucianist groups, unions, fraternal or athletic groups, or [...] on file Legal Sex Male 1:17 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 [facility] Chronic Pain Care Plan Chronic Care Management No change(09/20 9:23 AM ROLLED MATERIALS WORKER) No Marla Sheppard, BARTOLOME Note: Problem: Chronic [...] on filedocumented in this encounter Care Teams Maintenance Worker Relationship Specialty Start Date End Date Alfredo Negron MD PCP - General Internal Medicine 10/28/21 01/19/24 Harjeet Cintron MD 1 [place] [address] PCP - General 01/20/24 Amando Cintron MD Surgeon Vascular Surgery 08/25/21 Angélica Boyd, RN Registered Nurse Pulmonary Disease 02/09/22 11/08/24 documented as of this encounter
--- OUTSIDE RECORDS SUMMARY | 2025-07-16 16:47 | XMS_ITS | Encounter Summary ---
Author Organization [facility] Healthcare Address [address] [place] [address] Care Team Providers Care Tool Dresser Name Role Phone Amando Cintron MD Unavailable [phone] Alfredo Negron MD Primary Care Provide r Angélica Boyd RN Unavailable Unavailable Rosalva Prince RN Unavailable [phone] Nisha Lepe RN Unavailable Harjeet Cintron MD Primary Care Prov ider Encounter Details Date Type Department Care Team (Late st Contact Info) Description 12/21/2021 Telephone [facility] Primary Care Medicine Clinic [address] [facility] [address] [place] [address] Alfredo Negron MD [address] [facility] [address] [place] [address] Social History Tobacco Use Types Packs/Day Years [...] on file Legal Sex Male 1:17 AM SERGER Gender Identity Not on file Sexual Orientation [...] Chronic Care Management No change(09/20 9:23 AM SERGER) No Marla Sheppard RN Note: Problem: Chronic [...] documented as of this encounter Care Teams Tool Dresser Relationship Specialty Start Date End Date Alfredo Negron MD PCP - General Internal Medicine 10/28/21 01/19/24 Harjeet Cintron MD 1 [place] [address] PCP - General 01/20/24 Amando Cintron MD Surgeon Vascular Surgery 08/25/21 Angélica Boyd RN Registered Nurse Pulmonary Disease 02/09/22 11/08/24 Rosalva Prince RN [address] [facility] [address] [place] [address] SHOP Outpatient Safety Coordinator 01/03/23 01/15/23 Nisha Leep, BARTOLOME [address] [place] [address] [address] [place], [place] [id number] Contract Processor 01/21/23 02/16/23 documented as of this encounter
--- OUTSIDE RECORDS SUMMARY | 2025-07-16 16:47 | XMS_ITS | Encounter Summary ---
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 [facility] Chronic Pain Care Plan Chronic Care Management No change(09/20 9:23 AM TARGET WORKER) No Marla Sheppard RN Note: Problem: [...] documented as of this encounter Care Teams Cook Chill Technician Relationship Specialty Start Date End Date Sorin Santos MD [address] [address] PCP - General Internal Medicine 01/22/19 01/15/21 Alfredo Negron MD [address] [address] PCP - General 01/16/21 10/26/21 Sorin Santos MD [address] [address] PCP - General 10/27/21 10/27/21 Alfredo Negron MD [address] [address] PCP - General Internal Medicine 10/28/21 01/19/24 Harjeet Cintron MD 1 [place] [address] PCP - General 01/20/24 Amando Cintron MD 1 [facility] [address] [place] [address] Surgeon Vascular Surgery 08/25/21 Angélica Boyd RN Registered Nurse Pulmonary Disease 02/09/22 11/08/24 Rosalva Prince, BARTOLOME [address] [facility] [address] [place] [address] SHOP Outpatient Construction Grip 01/03/23 01/15/23 Nisha Lepe RN [address] [place] [address] [address] [place] [address] Clinic Lpn 01/21/23 02/16/23 documented as of this encounter
--- OUTSIDE RECORDS SUMMARY | 2025-07-16 16:47 | XMS_ITS | Encounter Summary ---
Author Organization [facility] Healthcare Address [address] [place] [address] Care Team Providers Care Medical Coordinator Pesticide Use Name Role Phone Amando Cintron MD Unavailable Alfredo Negron MD Primary Care Provide r Angélica Boyd RN Unavailable Unavailable Harjeet Cintron MD Primary Care Prov ider Encounter Details Date Type Department Care Team (Late st Contact Info) Description 06/07/2023 Telephone [facility] Primary Care Medicine Clinic [address] [place] [address] Alfredo Negron MD [address] [place] [address] Social History Tobacco Use Types [...] place to sleep or slept in a long-term (including now)? No 05/11/2023 Personal Safety Answer Date Recorded Have you ever been in or are you currently in a harmful physical or emotional relationship or is someone making you feel afraid or unsafe? Denies 05/10/2023 Sex and Gender Information Value Date Recorded Sex Assigned at Not on file Legal Sex Male 1:17 AM PARTS IDENTIFIER Gender Identity Not on file Sexual Orientation [...] when to call CM or provider. [facility] Chronic Pain Care Plan Chronic Care Management No change(09/20 9:23 AM PARTS IDENTIFIER) Marla Mcdaniel RN Note: Problem: Chronic Pain// ABD pain, legs Goals: 1. Minimize further functional decline 2. Maximize quality of life 3. Control pain Strategies: - Activity/exercise program recommendation - Conservative stepwise pain medicine strategy with multi-disciplinary approach - Recommend healthy lifestyle strategies and compensatory methods as needed documented as of this encounter Visit Diagnoses Not on filedocumented in this encounter Care Teams Medical Coordinator Pesticide Use Relationship Specialty Start Date End Date Alfredo Negron MD PCP - General Internal Medicine 10/28/21 01/19/24 Harjeet Cintron MD 1 [place] [address] PCP - General 01/20/24 Amando Cintron MD Surgeon Vascular Surgery 08/25/21 Angélica Boyd, RN Registered Nurse Pulmonary Disease 02/09/22 11/08/24 documented as of this encounter
--- OUTSIDE RECORDS SUMMARY | 2025-07-16 16:47 | XMS_ITS | Encounter Summary ---
Author Organization [facility] Healthcare Address [address] [place] [address] Care Team Providers Care Clinical Sales Consultant Name Role Phone Amando Cintron MD Unavailable Alferdo Negron MD Primary Care Provide r Angélica Boyd RN Unavailable Unavailable Harjeet Cintron MD Primary Care Prov ider Encounter Details Date Type Department Care Team (Late st Contact Info) Description 06/27/2023 Telephone [facility] Primary Care Medicine Clinic [address] [facility] [address] [place] [address] Alfredo Negron MD [address] [place] [address] Social History Tobacco Use Types [...] often do you attend chur ch or temple services? Never 05/11/2023 Do you belong to any clubs o r organizations such as druze groups, unions, fraternal or athletic groups, or [...] slept in a intermediate (including now)? No 05/11/2023 Personal Safety Answer Date Recorded Have you ever been in or are you currently in a harmful physical or emotional relationship or is someone making you feel afraid or unsafe? Denies 05/10/2023 Sex and Gender Information Value Date Recorded Sex Assigned at Not on file Legal Sex Male 1:17 AM ASSISTANT PROFESSOR SURGICAL TECHNOLOGY Gender Identity Not on file Sexual Orientation Not on file documented as of this encounter Functional Status * Alcohol Withdrawal BP Hierarchy Answer Date of Assessment Author 60 06/28/2023 10:16 AM ASSISTANT PROFESSOR SURGICAL TECHNOLOGY Isabela Thompson CMA documented as of this [...] take, when to call CM or provider. [facility] Chronic Pain Care Plan Chronic Care Management No change(09/20 9:23 AM ASSISTANT PROFESSOR SURGICAL TECHNOLOGY) No Marla Sheppard RN Note: Problem: Chronic [...] on filedocumented in this encounter Care Teams Clinical Sales Consultant Relationship Specialty Start Date End Date Alfredo Negron MD PCP - General Internal Medicine 10/28/21 01/19/24 Harjeet Cintron MD 1 [place] [address] PCP - General 01/20/24 Amando Cintron MD Surgeon Vascular Surgery 08/25/21 Angélica Boyd, BARTOLOME Registered Nurse Pulmonary Disease 02/09/22 11/08/24 documented as of this encounter
--- OUTSIDE RECORDS SUMMARY | 2025-07-16 16:47 | XMS_ITS | Encounter Summary ---
Author Organization [facility] Healthcare Address [address] [place] [address] Care Team Providers Care Car Supplier Name Role Phone Amando Cintron MD Unavailable Harjeet Cintron MD Primary Care Prov ider Reason for Visit * Reason Onset Date Comments Follow-up 07/16/2025 Encounter Details Date Type Department Care Team (Late st Contact Info) Description 07/16/2025 Telephone [facility] Primary Care Medicine Clinic [address] [facility] [address] [place] [address] Harjeet Cintron MD [address] [place] [address] Follow-up Social History Tobacco Use Types Packs/Day Years [...] often do you attend chur ch or rastafari services? Never 05/11/2023 Do you belong to [...] you are drinking? Patient does not drink 5 Q3: How often do you have si [...] on file Legal Sex Male 1:17 AM MEDIA SUPERVISOR Gender Identity Not on file Sexual Orientation Not on file documented as of this encounter Miscellaneous Notes * Telephone Encounter - Lupe Cline - 07/16/2025 3:[address] Cintron, Deann Alas from [facility] called requesting verbals orders for PT for the lower right leg for strengthening. Call: [phone] (secure line) Lupe Ocasio [facility] Services [phone] A SUPERVISOR documented in this encounter Plan of Treatment [...] take, when to call CM or provider. [facility] Chronic Pain Care Plan Chronic Care Management No change(09/20 9:23 AM MEDIA SUPERVISOR) No Marla Sheppard, RN Note: Problem: Chronic [...] on filedocumented in this encounter Care Teams Car Supplier Relationship Specialty Start Date End Date Harjeet Cintron MD 1 [place] [address] PCP - General 01/20/24 Amando Cintron MD Surgeon Vascular Surgery 08/25/21 documented as of this encounter
--- OUTSIDE RECORDS SUMMARY | 2025-07-16 16:47 | XMS_ITS | Encounter Summary ---
Author Organization [facility] Healthcare Address [address] [place] [address] Care Team Providers Care Exhaust And Muffler Fitter Name Role Phone Amando Cintron MD Unavailable Alfredo Negron MD Primary Care Provide r Angélica Boyd RN Unavailable Unavailable Rosalva Prince RN Unavailable [phone] Nisha Lepe RN Unavailable [phone] Harjeet Cintron MD Primary Care Prov ider Encounter Details Date Type Department Care Team (Late st Contact Info) Description 06/16/2022 Telephone [facility] Primary Care Medicine Clinic [address] [facility] [address] [place] [address] Alfredo Negron MD [address] [facility] [address] [place] [address] Social History Tobacco Use Types Packs/Day Years [...] on file Legal Sex Male 1:17 AM TREASURER Gender Identity Not on file Sexual Orientation [...] (rather than stopping them without telling anyone). [facility] Chronic Pain Care Plan Chronic Care Management No change(09/20 9:23 AM TREASURER) Marla Mcdaniel RN Note: Problem: Chronic Pain// [...] documented as of this encounter Care Teams Exhaust And Muffler Fitter Relationship Specialty Start Date End Date Alfredo Negron MD PCP - General Internal Medicine 10/28/21 01/19/24 Harjeet Cintron MD 1 [place] [address] PCP - General 01/20/24 Amando Cintron MD Surgeon Vascular Surgery 08/25/21 Angélica Boyd RN Registered Nurse Pulmonary Disease 02/09/22 11/08/24 Rosalva Prince RN [address] [facility] [address] [place] [address] SHOP Outpatient Coin Machine Servicer Repairer 01/03/23 01/15/23 Nisha Lepe, BARTOLOME [address] [place] [address] [address] [place] [address] Breakdown Worker 01/21/23 02/16/23 documented as of this encounter
--- OUTSIDE RECORDS SUMMARY | 2025-07-16 16:47 | XMS_ITS | Encounter Summary ---
Author Organization [facility] Address [address] [place] [address] Phone Care Team Providers Care Director Of Research Name Role Phone Sorin Santos MD Primary Care Provider Alfredo Negron MD Primary Care Provide r Amando Cintron MD Unavailable [phone] Sorin Santos MD Primary Care Provider Alfredo Negron MD Primary Care Provide r Angélica Boyd RN Unavailable Unavailable Rosalva Prince RN Unavailable [phone] Nisha Lepe RN Unavailable [phone] Harjeet Cintron MD Primary Care Prov ider [...] on file Legal Sex Male 1:17 AM INSPECTOR CASING Gender Identity Not on file Sexual Orientation [...] (rather than stopping them without telling anyone). [facility] Chronic Pain Care Plan Chronic Care Management No change(09/20 9:23 AM INSPECTOR CASING) No Marla Sheppard RN Note: Problem: Chronic [...] as of this encounter Care Teams Director Of Research Relationship Specialty Start Date End Date Sorin Santos MD [address] [address] PCP - General Internal Medicine 01/22/19 01/15/21 Alfredo Negron MD [address] [address] PCP - General 01/16/21 10/26/21 Sorin Santos MD [address] [address] PCP - General 10/27/21 10/27/21 Alfredo Negron MD [address] [address] PCP - General Internal Medicine 10/28/21 01/19/24 Harjeet Cintron MD 1 [place] [address] PCP - General 01/20/24 Amando Cintron MD 1 [facility] [address] [place] [address] Surgeon Vascular Surgery 08/25/21 Angélcia Boyd RN Registered Nurse Pulmonary Disease 02/09/22 11/08/24 Rosalva Prince, BARTOLOME [address] [facility] [address] [place] [address] SHOP Outpatient Gospel Singer 01/03/23 01/15/23 Nisha Lepe RN [address] [place] [address] [address] [place] [address] Wood Barrel Reconditioner 01/21/23 02/16/23 documented as of this encounter
--- OUTSIDE RECORDS SUMMARY | 2025-07-16 16:47 | XMS_ITS | Encounter Summary ---
Author Organization [facility] Healthcare Address [address] [place] [address] Care Team Providers Care Director Information Name Role Phone Amando Cintron MD Unavailable Alfredo Negron MD Primary Care Provide r Angélica Boyd RN Unavailable Unavailable Rosalva Prince RN Unavailable [phone] Nisha Lepe RN Unavailable Harjeet Cintron MD Primary Care Prov ider Encounter Details Date Type Department Care Team (Late st Contact Info) Description 03/22/2022 Telephone [facility] Primary Care Medicine Clinic [address] [facility] [address] [place] [address] Alfredo Negron MD [address] [facility] [address] [place] [address] Social History Tobacco Use Types Packs/Day Years [...] on file Legal Sex Male 1:17 AM EXPLORATION ENGINEER Gender Identity Not on file Sexual [...] Chronic Care Management No change(09/20 9:23 AM EXPLORATION ENGINEER) Marla Mcdaniel RN Note: Problem: Chronic [...] as of this encounter Care Teams Director Information Relationship Specialty Start Date End Date Alfredo Negron MD PCP - General Internal Medicine 10/28/21 01/19/24 Harjeet Cintron MD 1 [place] [address] PCP - General 01/20/24 Amando Cintron MD Surgeon Vascular Surgery 08/25/21 Angélica Boyd RN Registered Nurse Pulmonary Disease 02/09/22 11/08/24 Rosalva Prince RN [address] [facility] [address] [place] [address] SHOP Outpatient Telephone Directory Deliverer 01/03/23 01/15/23 Nisha Lepe, BARTOLOME [address] [place] [address] [address] [place] [address] Director Of Maternity Services 01/21/23 02/16/23 documented as of this encounter
--- OUTSIDE RECORDS SUMMARY | 2025-07-16 16:47 | XMS_ITS | Encounter Summary ---
Author Organization [facility] Healthcare Address [address] [place] [address] Care Team Providers Care Plumbing Hardware Assembler Name Role Phone Amando Cintron MD Unavailable Alfredo Negron MD Primary Care Provide r Angélica Boyd RN Unavailable Unavailable Rosalva Prince RN Unavailable [phone] Nisha Lepe RN Unavailable Harjeet Cintron MD Primary Care Prov ider Encounter Details Date Type Department Care Team (Late st Contact Info) Description 05/03/[address] 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 [facility] Chronic Pain Care Plan Chronic Care Management No change(09/20 9:23 AM FOREMAN OR SUPERVISOR AND OPERATOR) Marla Mcdaniel RN Note: Problem: Chronic [...] documented as of this encounter Care Teams Plumbing Hardware Assembler Relationship Specialty Start Date End Date Alfredo Negron MD PCP - General Internal Medicine 10/28/21 01/19/24 Harjeet Cintron MD 1 [place] [address] PCP - General 01/20/24 Amando Cintron MD Surgeon Vascular Surgery 08/25/21 Angélica Boyd RN Registered Nurse Pulmonary Disease 02/09/22 11/08/24 Rosalva Prince RN [address] [facility] [address] [place] [address] SHOP Outpatient Cad Cam Programmer 01/03/23 01/15/23 Nisha Lepe, BARTOLOME [address] [place] [address] [address] [place] [address] Examining Chair Assembler 01/21/23 02/16/23 documented as of this encounter
--- OUTSIDE RECORDS SUMMARY | 2025-07-16 16:47 | XMS_ITS | Encounter Summary ---
Author Organization [facility] Healthcare Address [address] [place] [address] Care Team Providers Care Information Technology Director Name Role Phone Amando Cintron MD Unavailable Alfredo Negron MD Primary Care Provide r Angélica Boyd RN Unavailable Unavailable Harjeet Cintron MD Primary Care Prov ider Encounter Details Date Type Department Care Team (Late st Contact Info) Description 08/04/2023 Telephone [facility] Clinic [address] [facility] [address] [place] [address] Alfredo Negron MD [address] [place] [address] Social History Tobacco Use Types [...] week 05/11/2023 How often do you attend [facility] or jew services? Never 05/11/2023 Do you belong to [...] in a snf (including now)? No 05/11/2023 Personal Safety Answer Date Recorded Have you ever been in or are you currently in a harmful physical or emotional relationship or is someone making you feel afraid or unsafe? Denies 05/10/2023 Sex and Gender Information Value Date Recorded Sex Assigned at Not on file Legal Sex Male 1:17 AM JOB SETTER Gender Identity Not on file Sexual Orientation [...] take, when to call CM or provider. [facility] Chronic Pain Care Plan Chronic Care Management No change(09/20 9:23 AM JOB SETTER) Marla Mcdaniel RN Note: Problem: Chronic Pain// ABD pain, legs Goals: 1. Minimize further functional decline 2. Maximize quality of life 3. Control pain Strategies: - Activity/exercise program recommendation - Conservative stepwise pain medicine strategy with multi-disciplinary approach - Recommend healthy lifestyle strategies and compensatory methods as needed documented as of this encounter Visit Diagnoses Not on filedocumented in this encounter Care Teams Information Technology Director Relationship Specialty Start Date End Date Alfredo Negron MD PCP - General Internal Medicine 10/28/21 01/19/24 Harjeet Cintron MD [address] [place] [address] PCP - General 01/20/24 Amando Cintron MD Surgeon Vascular Surgery 08/25/21 Angélica Boyd, RN Registered Nurse Pulmonary Disease 02/09/22 11/08/24 documented as of this encounter
--- OUTSIDE RECORDS SUMMARY | 2025-07-16 16:48 | XMS_ITS | Encounter Summary ---
Author Organization [facility] Healthcare Address [address] [place] [address] Care Team Providers Care Match Marker Name Role Phone Amando Cintron MD Unavailable Alfredo Negron MD Primary Care Provide r Angélica Boyd RN Unavailable Unavailable Harjeet Cintron MD Primary Care Prov ider Encounter Details Date Type Department Care Team (Late st Contact Info) Description 04/04/2023 Telephone [facility] Primary Care Medicine Clinic [address] [facility] [address] [place] [address] Alfredo Negron MD [address] [place] [address] Social History Tobacco Use Types [...] any clubs o r organizations such as moravian groups, unions, fraternal or athletic groups, or [...] in a group home (including now)? No 01/23/2023 Sex and Gender Information Value Date Recorded Sex Assigned at Not on file Legal Sex Male 1:17 AM SPORTS CLERK Gender Identity Not on file Sexual [...] take, when to call CM or provider. [facility] Chronic Pain Care Plan Chronic Care Management No change(09/20 9:23 AM SPORTS CLERK) No Marla Sheppard RN Note: Problem: [...] on filedocumented in this encounter Care Teams Match Marker Relationship Specialty Start Date End Date Alfredo Negron MD PCP - General Internal Medicine 10/28/21 01/19/24 Harjeet Cintron MD 1 [place] [address] PCP - General 01/20/24 Amando Cintron MD Surgeon Vascular Surgery 08/25/21 Angélica Boyd, BARTOLOME Registered Nurse Pulmonary Disease 02/09/22 11/08/24 documented as of this encounter
--- OUTSIDE RECORDS SUMMARY | 2025-07-16 16:48 | XMS_ITS | Encounter Summary ---
Author Organization [facility] Healthcare Address [address] [place] [address] Care Team Providers Care Signals Intelligence Superintendent Name Role Phone Amando Cintron MD Unavailable Alfredo Negron MD Primary Care Provide r Angélica Boyd RN Unavailable Unavailable Harjeet Cintron MD Primary Care Prov ider Encounter Details Date Type Department Care Team (Late st Contact Info) Description 03/24/[address] [facility] Primary Care Medicine Clinic [address] [facility] [address] [place] [address] Alfredo Negron MD [address] [place] [address] Social History Tobacco Use Types [...] any clubs o r organizations such as restorationism groups, unions, fraternal or athletic groups, or [...] slept in a [facility] (including now)? No 01/23/2023 Sex and Gender Information Value Date Recorded Sex Assigned at Not on file Legal Sex Male 1:17 AM CREDIT COLLECTOR Gender Identity Not on file Sexual Orientation [...] or get rid of a hangover? Eye insulation inspector? 0 03/24/2023 12:41 PM DEANNAT Alecia Valdovinos [...] RN Reason For Exception(s) not utlized in [facility] 03/24 12:41 PM Sonya Delatorre RN [...] RN Reason For Exception(s) not utlized in [facility] 03/24 12:41 PM Sonya Delatorre RN [...] 2 03/24/2023 12:41 PM Sonya Delatorre, RN AERODYNAMICIST Evaluation Needed 2 03/24/2023 12:41 PM Sonya [...] Delatorre RN Patient is in need of AERODYNAMICIST Order: No AERODYNAMICIST order needed from this assessment 03/24/2023 12:41 PM Sonya Delatorre RN documented as of this encounter Plan of Treatment Scheduled Procedures Name Priority Associated Diagnoses Date/Ti ny COLONOSCOPY Iron deficiency anemia, unspecified iron deficiency [...] when to call CM or provider. [facility] Chronic Pain Care Plan Chronic Care Management No change(09/20 9:23 AM CREDIT COLLECTOR) No Marla Sheppard RN Note: Problem: Chronic [...] on filedocumented in this encounter Care Teams Signals Intelligence Superintendent Relationship Specialty Start Date End Date Alfredo Negron MD PCP - General Internal Medicine 10/28/21 01/19/24 Harjeet Cintron MD 1 [place] [address] PCP - General 01/20/24 Amando Cintron MD Surgeon Vascular Surgery 08/25/21 Angélica Boyd, BARTOLOME Registered Nurse Pulmonary Disease 02/09/22 11/08/24 documented as of this encounter
--- OUTSIDE RECORDS SUMMARY | 2025-07-16 16:48 | XMS_ITS | Encounter Summary ---
Author Organization [facility] Healthcare Address [address] [place] [address] Care Team Providers Care Water And Fire Technician Name Role Phone Amando Cintron MD Unavailable Alfredo Negron MD Primary Care Provide r Angélica Boyd RN Unavailable Unavailable Harjeet Cintron MD Primary Care Prov ider Encounter Details Date Type Department Care Team (Late st Contact Info) Description 03/15/2023 Telephone [facility] Primary Care Medicine Clinic [address] [facility] [address] [place] [address] Alfredo Negron MD [address] [place] [address] Social History Tobacco Use Types [...] often do you attend chur ch or zoroastrian services? Never 01/23/2023 Do you belong to [...] slept in a fpc (including now)? No 01/23/2023 Sex and Gender Information Value Date Recorded Sex Assigned at Not on file Legal Sex Male 1:17 AM INSPECTOR INTEGRATED CIRCUITS Gender Identity Not on file Sexual Orientation [...] take, when to call CM or provider. [facility] Chronic Pain Care Plan Chronic Care Management No change(09/20 9:23 AM INSPECTOR INTEGRATED CIRCUITS) No Marla Sheppard RN Note: Problem: Chronic [...] on filedocumented in this encounter Care Teams Water And Fire Technician Relationship Specialty Start Date End Date Alfredo Negron MD PCP - General Internal Medicine 10/28/21 01/19/24 Harjeet Cintron MD 1 [place] [address] PCP - General 01/20/24 Amando Cintron MD Surgeon Vascular Surgery 08/25/21 Angélica Boyd, BARTOLOME Registered Nurse Pulmonary Disease 02/09/22 11/08/24 documented as of this encounter
--- OUTSIDE RECORDS SUMMARY | 2025-07-16 16:48 | XMS_ITS | Encounter Summary ---
Author Organization [facility] Healthcare Address [address] [place] [address] Care Team Providers Care Inbound Call Center Representative Name Role Phone Amando Cintron MD Unavailable Alfredo Negron MD Primary Care Provide r Angélica Boyd RN Unavailable Unavailable Harjeet Cintron MD Primary Care Prov ider Encounter Details Date Type Department Care Team (Late st Contact Info) Description 06/06/2023 Telephone [facility] Primary Care Medicine Clinic [address] [facility] [address] [place] [address] Alfredo Negron MD [address] [place] [address] Social History Tobacco Use Types [...] any clubs o r organizations such as buddhist groups, unions, fraternal or athletic groups, or [...] file Legal Sex Male 1:17 AM AGRICULTURAL ENGINEERING TECHNOLOGIST Gender Identity Not on file Sexual [...] when to call CM or provider. [facility] Chronic Pain Care Plan Chronic Care Management No change(09/20 9:23 AM AGRICULTURAL ENGINEERING TECHNOLOGIST) Marla Mcdaniel RN Note: Problem: Chronic Pain// ABD pain, legs Goals: 1. Minimize further functional decline 2. Maximize quality of life 3. Control pain Strategies: - Activity/exercise program recommendation - Conservative stepwise pain medicine strategy with multi-disciplinary approach - Recommend healthy lifestyle strategies and compensatory methods as needed documented as of this encounter Visit Diagnoses Not on filedocumented in this encounter Care Teams Inbound Call Center Representative Relationship Specialty Start Date End Date Alfredo Negron MD PCP - General Internal Medicine 10/28/21 01/19/24 Harjeet Cintron MD 1 [place] [address] PCP - General 01/20/24 Amando Cintron MD Surgeon Vascular Surgery 08/25/21 Angélica Boyd, RN Registered Nurse Pulmonary Disease 02/09/22 11/08/24 documented as of this encounter
--- OUTSIDE RECORDS SUMMARY | 2025-07-16 16:48 | XMS_ITS | Encounter Summary ---
Author Organization [facility] Healthcare Address [address] [place] [address] Care Team Providers Care Metal Fabricator Helper Name Role Phone Amando Cintron MD Unavailable Alfredo Negron MD Primary Care Provide r Angélica Boyd RN Unavailable Unavailable Rosalva Prince RN Unavailable [phone] Nisha Lepe RN Unavailable Harjeet Cintron MD Primary Care Prov ider Encounter Details Date Type Department Care Team (Late st Contact Info) Description 08/16/2022 Telephone [facility] Primary Care Medicine Clinic [address] [facility] [address] [place] [address] Alfredo Negron MD [address] [facility] [address] [place] [address] Social History Tobacco Use Types Packs/Day Years [...] on file Legal Sex Male 1:17 AM LEARNING TECHNOLOGIES SPECIALIST Gender Identity Not on file Sexual Orientation Not on file documented as of this encounter Functional Status * Alcohol Withdrawal BP Hierarchy Answer Date of Assessment Author Ibanez 08/19/2022 2:21 PM LEARNING TECHNOLOGIES SPECIALIST Brandon Sarabia MA documented as of this [...] Chronic Care Management No change(09/20 9:23 AM LEARNING TECHNOLOGIES SPECIALIST) Marla Mcdaniel, RN Note: Problem: Chronic Pain// [...] documented as of this encounter Care Teams Metal Fabricator Helper Relationship Specialty Start Date End Date Alfredo Negron MD PCP - General Internal Medicine 10/28/21 01/19/24 Harjeet Cintron MD 1 [place] [address] PCP - General 01/20/24 Amando Cintron MD Surgeon Vascular Surgery 08/25/21 Angélica Boyd RN Registered Nurse Pulmonary Disease 02/09/22 11/08/24 Rosalva Prince RN [address] [facility] [address] [place] [address] SHOP Outpatient Digital Media Intern 01/03/23 01/15/23 Nisha Lepe RN [address] [facility] [address] [place] [address] Infant Caregiver 01/21/23 02/16/23 documented as of this encounter
--- OUTSIDE RECORDS SUMMARY | 2025-07-16 16:48 | XMS_ITS | Encounter Summary ---
Author Organization [facility] Healthcare Address [address] [place] [address] Care Team Providers Care Delivery Mgr Name Role Phone Amando Cintron MD Unavailable Alfredo Negron MD Primary Care Provide r Angélica Boyd RN Unavailable Unavailable Rosalva Prince RN Unavailable [phone] Nisha Lepe RN Unavailable [phone] Harjeet Cintron MD Primary Care Prov ider Encounter Details Date Type Department Care Team (Late st Contact Info) Description 01/14/[address] [id number] Gilson Moeller RN Social History Tobacco Use [...] on file Legal Sex Male 1:17 AM SEDIMENTATIONIST Gender Identity Not on file Sexual Orientation [...] Diagnosis 15 01/14/2023 8:00 AM Tiffany Rodriguez, fire coordinator Aids 15 01/14/2023 8:00 AM Tiffany Alejandra [...] alarm;Video monitoring 01/14/2023 8:00 AM Tiffany Frank, BRATOLOME * Question Answer Date of Assessment Author [...] Neuro (WDL) X 01/14/2023 11:20 AM CDT [facility] Tiffany berkowitz RN documented in this encounter [...] Chronic Care Management No change(09/20 9:23 AM SEDIMENTATIONIST) No Marla Sheppard RN Note: Problem: Chronic [...] on filedocumented in this encounter Care Teams Delivery Mgr Relationship Specialty Start Date End Date Alfredo Negron MD PCP - General Internal Medicine 10/28/21 01/19/24 Harjeet Cintron MD 1 [place] [address] PCP - General 01/20/24 Amando Cintron MD Surgeon Vascular Surgery 08/25/21 Angélica Boyd RN Registered Nurse Pulmonary Disease 02/09/22 11/08/24 Rosalva Prince, RN [address] [facility] [address] [place] [address] SHOP Outpatient Ice Cream Man 01/03/23 01/15/23 Nisha Lepe, BARTOLOME [address] [place] [address] [address] [place] [address] Bright Cutter 01/21/23 02/16/23 documented as of this encounter
--- OUTSIDE RECORDS SUMMARY | 2025-07-16 16:48 | XMS_ITS | Encounter Summary ---
Author Organization [facility] Healthcare Address [address] [place] [address] Care Team Providers Care Credit Reference Clerk Name Role Phone Amando Cintron MD Unavailable Alfredo Negron MD Primary Care Provide r Angélica Boyd RN Unavailable Unavailable Harjeet Cintron MD Primary Care Prov ider Encounter Details Date Type Department Care Team (Late st Contact Info) Description 03/30/2023 Telephone [facility] Primary Care Medicine Clinic [address] [facility] [address] [place] [address] Alfredo Negron MD [address] [place] [address] Social History Tobacco Use Types [...] attend chur ch or baptism services? Never 01/23/2023 Do you belong to [...] slept in a detention (including now)? No 01/23/2023 Sex and Gender Information Value Date Recorded Sex Assigned at Not on file Legal Sex Male 1:17 AM DIRECTOR OF HOME CARE HOSPICE Gender Identity Not on file Sexual Orientation [...] take, when to call CM or provider. [facility] Chronic Pain Care Plan Chronic Care Management No change(09/20 9:23 AM DIRECTOR OF HOME CARE HOSPICE) No Marla Sheppard RN Note: Problem: Chronic [...] on filedocumented in this encounter Care Teams Credit Reference Clerk Relationship Specialty Start Date End Date Alfredo Negron MD PCP - General Internal Medicine 10/28/21 01/19/24 Harjeet Cintron MD 1 [place] [address] PCP - General 01/20/24 Amando Cintron MD Surgeon Vascular Surgery 08/25/21 Angélica Boyd, BARTOLOME Registered Nurse Pulmonary Disease 02/09/22 11/08/24 documented as of this encounter
--- OUTSIDE RECORDS SUMMARY | 2025-07-16 16:48 | XMS_ITS | Encounter Summary ---
Author Organization [facility] Address [address] [place] [address] Phone Care Team Providers Care Etiology Teacher Name Role Phone Amando Cintron MD Unavailable Alfredo Negron MD Primary Care Provide r Angélica Boyd RN Unavailable Unavailable Rosalva Prince RN Unavailable [phone] Nisha Lepe RN Unavailable [phone] Harjeet Cintron MD Primary Care Prov ider [...] on file Legal Sex Male 1:17 AM BEAR KEEPER Gender Identity Not on file Sexual Orientation [...] (rather than stopping them without telling anyone). [facility] Chronic Pain Care Plan Chronic Care Management No change(09/20 9:23 AM BEAR KEEPER) No Marla Sheppard RN Note: Problem: Chronic [...] documented as of this encounter Care Teams Etiology Teacher Relationship Specialty Start Date End Date Alfredo Negron MD PCP - General Internal Medicine 10/28/21 01/19/24 Harjeet Cintron MD 1 [place] [address] PCP - General 01/20/24 Amando Cintron MD Surgeon Vascular Surgery 08/25/21 Angélica Boyd RN Registered Nurse Pulmonary Disease 02/09/22 11/08/24 Rosalva Prince, BARTOLOME [address] [facility] [address] [place] [address] SHOP Outpatient Try On Baster 01/03/23 01/15/23 Nisha Lepe, BARTOLOME [address] [place] [address] [address] [facility] [address] [place] [address] Gravel Truck Driver 01/21/23 02/16/23 documented as of this encounter
--- OUTSIDE RECORDS SUMMARY | 2025-07-16 16:48 | XMS_ITS | Encounter Summary ---
Author Organization [facility] Healthcare Address [address] [place] [address] Care Team Providers Care Curtain Framer Name Role Phone Amando Cintron MD Unavailable Alfredo Negron MD Primary Care Provide r Angélica Boyd RN Unavailable Unavailable Harjeet Cintron MD Primary Care Prov ider Encounter Details Date Type Department Care Team (Late st Contact Info) Description 02/27/2023 Telephone [facility] Primary Care Medicine Clinic [address] [facility] [address] [place] [address] Alfredo Negron MD [address] [place] [address] Social History Tobacco Use Types [...] often do you attend chur ch or shinto services? Never 01/23/2023 Do you belong to any clubs o r organizations such as orthodoxy groups, unions, fraternal or athletic groups, or [...] place to sleep or slept in a jail (including now)? No 01/23/2023 Sex and Gender Information Value Date Recorded Sex Assigned at Not on file Legal Sex Male 1:17 AM VALVE MAKER Gender Identity Not on file Sexual [...] take, when to call CM or provider. [facility] Chronic Pain Care Plan Chronic Care Management No change(09/20 9:23 AM VALVE MAKER) Marla Mcdaniel RN Note: Problem: Chronic [...] on filedocumented in this encounter Care Teams Curtain Framer Relationship Specialty Start Date End Date Alfredo Negron MD PCP - General Internal Medicine 10/28/21 01/19/24 Harjeet Cintron MD [address] [place] [address] PCP - General 01/20/24 Amando Cintron MD Surgeon Vascular Surgery 08/25/21 Angélica Boyd, RN Registered Nurse Pulmonary Disease 02/09/22 11/08/24 documented as of this encounter
--- OUTSIDE RECORDS SUMMARY | 2025-07-16 16:48 | XMS_ITS | Encounter Summary ---
Author Organization [facility] Address [address] [place] [address] Phone Care Team Providers Care Chief Dietitian Name Role Phone Amando Cintron MD Unavailable Alfredo Negron MD Primary Care Provide r Angélica Boyd RN Unavailable Unavailable Rosalva Prince RN Unavailable [phone] Nisha Lepe RN Unavailable [phone] Harjeet Cintron MD Primary Care Prov ider [...] on file Legal Sex Male 1:17 AM COMPUTATOR Gender Identity Not on file Sexual Orientation [...] (rather than stopping them without telling anyone). [facility] Chronic Pain Care Plan Chronic Care Management No change(09/20 9:23 AM COMPUTATOR) No Marla Sheppard RN Note: Problem: Chronic [...] as of this encounter Care Teams Chief Dietitian Relationship Specialty Start Date End Date Alfredo Negron MD PCP - General Internal Medicine 10/28/21 01/19/24 Harjeet Cintron MD [address] [place] [address] PCP - General 01/20/24 Amando Cintron MD Surgeon Vascular Surgery 08/25/21 Angélica Boyd RN Registered Nurse Pulmonary Disease 02/09/22 11/08/24 Rosalva rPince RN [address] [facility] [address] [place] [address] SHOP Outpatient Python Web Developer 01/03/23 01/15/23 Nisha Lepe, BARTOLOME [address] [place] [address] [address] [place] [address] Urban Anthropologist 01/21/23 02/16/23 documented as of this encounter
--- OUTSIDE RECORDS SUMMARY | 2025-07-16 16:48 | XMS_ITS | Encounter Summary ---
Author Organization [facility] Healthcare Address [address] [place] [address] Care Team Providers Care Cement Tile Maker Name Role Phone Amando Cintron MD Unavailable Alfredo Negron MD Primary Care Provide r Angélica Boyd RN Unavailable Unavailable Harjeet Cintron MD Primary Care Prov ider Encounter Details Date Type Department Care Team (Late st Contact Info) Description 06/03/2023 Telephone [facility] Primary Care Medicine Clinic [address] [facility] [address] [place] [address] Alfredo Negron MD [address] [place] [address] Social History Tobacco Use Types [...] often do you attend chur ch or methodist services? Never 05/11/2023 Do you belong to [...] place to sleep or slept in a skilled nursing (including now)? No 05/11/2023 Personal Safety Answer Date Recorded Have you ever been in or are you currently in a harmful physical or emotional relationship or is someone making you feel afraid or unsafe? Denies 05/10/2023 Sex and Gender Information Value Date Recorded Sex Assigned at Not on file Legal Sex Male 1:17 AM DEFENCE FORCE SENIOR OFFICER Gender Identity Not on file Sexual Orientation Not on file documented as of this encounter Functional Status * BP Location Answer Date of Assessment Author Right arm 06/05/2023 8:29 AM DEFENCE FORCE SENIOR OFFICER Alicia Good MA * Alcohol Withdrawal BP Hierarchy Answer Date of Assessment Author 39 06/05/2023 8:29 AM DEFENCE FORCE SENIOR OFFICER Alicia Good MA * BP Location Answer Date of Assessment Author Right arm 06/05/2023 8:29 AM DEFENCE FORCE SENIOR OFFICER Alicia Good MA documented as of this [...] take, when to call CM or provider. [facility] Chronic Pain Care Plan Chronic Care Management No change(09/20 9:23 AM DEFENCE FORCE SENIOR OFFICER) No Marla Sheppard RN Note: Problem: Chronic [...] on filedocumented in this encounter Care Teams Cement Tile Maker Relationship Specialty Start Date End Date Alfredo Negron MD PCP - General Internal Medicine 10/28/21 01/19/24 Harjeet Cintron MD [address] [place] [address] PCP - General 01/20/24 Amando Cintron MD Surgeon Vascular Surgery 08/25/21 Angélica Boyd, BARTOLOME Registered Nurse Pulmonary Disease 02/09/22 11/08/24 documented as of this encounter
--- OUTSIDE RECORDS SUMMARY | 2025-07-16 16:48 | XMS_ITS | Encounter Summary ---
Author Organization [facility] Address [address] [place] [address] Phone Care Team Providers Care Soaping Machine Back Tender Name Role Phone Sorin Santos MD Primary Care Provider Alfredo Negron MD Primary Care Provide r Amando Cintron MD Unavailable [phone] Sorin Santos MD Primary Care Provider Alfredo Negron MD Primary Care Provide r Angélica Boyd RN Unavailable Unavailable Rosalva Prince RN Unavailable [phone] Nisha Lepe RN Unavailable [phone] Harjeet Cintron MD Primary Care Prov ider [...] on file Legal Sex Male 1:17 AM EXTRACT OPERATOR Gender Identity Not on file Sexual [...] than stopping them without telling anyone). [facility] Chronic Pain Care Plan Chronic Care Management No change(09/20 9:23 AM EXTRACT OPERATOR) No Marla Sheppard RN Note: Problem: [...] documented as of this encounter Care Teams Soaping Machine Back Tender Relationship Specialty Start Date End Date Sorin Santos MD [address] [address] PCP - General Internal Medicine 01/22/19 01/15/21 Alfredo Negron MD [address] [address] PCP - General 01/16/21 10/26/21 Sorin Santos MD [address] [address] PCP - General 10/27/21 10/27/21 Alfredo Negron MD 1 [facility] [address] [place] [address] PCP - General Internal Medicine 10/28/21 01/19/24 Harjeet Cintron MD 1 [place] [address] PCP - General 01/20/24 Amando Cintron MD 1 [facility] [address] [place] [address] Surgeon Vascular Surgery 08/25/21 Angélica Boyd RN Registered Nurse Pulmonary Disease 02/09/22 11/08/24 Rosalva Prince, RN 4590 [facility] [address] [place] [address] SHOP Outpatient Hard Rock Drill Operator 01/03/23 01/15/23 Nisha Lepe RN [address] [place] [address] [address] [place] [address] Popped Corn Oven Attendant 01/21/23 02/16/23 documented as of this encounter
--- OUTSIDE RECORDS SUMMARY | 2025-07-16 16:48 | XMS_ITS | Encounter Summary ---
Author Organization [facility] Healthcare Address [address] [place] [address] Care Team Providers Care Panama Hat Blocker Name Role Phone Amando Cintron MD Unavailable Alfredo Negron MD Primary Care Provide r Angélica Boyd RN Unavailable Unavailable Harjeet Cintron MD Primary Care Prov ider Encounter Details Date Type Department Care Team (Late st Contact Info) Description 03/28/2023 Telephone [facility] Primary Care Medicine Clinic [address] [facility] [address] [place] [address] Alfredo Negron MD [address] [place] [address] Social History Tobacco Use Types [...] place to sleep or slept in a residential (including now)? No 01/23/2023 Sex and Gender Information Value Date Recorded Sex Assigned at Not on file Legal Sex Male 1:17 AM QUENCHING MACHINE OPERATOR Gender Identity Not on file [...] take, when to call CM or provider. [facility] Chronic Pain Care Plan Chronic Care Management No change(09/20 9:23 AM QUENCHING MACHINE OPERATOR) No Marla Sheppard RN Note: [...] on filedocumented in this encounter Care Teams Panama Hat Blocker Relationship Specialty Start Date End Date Alfredo Negron MD PCP - General Internal Medicine 10/28/21 01/19/24 Harjeet Cintron MD 1 [place] [address] PCP - General 01/20/24 Amando Cintron MD Surgeon Vascular Surgery 08/25/21 Angélica Boyd, BARTOLOME Registered Nurse Pulmonary Disease 02/09/22 11/08/24 documented as of this encounter
--- OUTSIDE RECORDS SUMMARY | 2025-07-16 16:48 | XMS_ITS | Encounter Summary ---
Author Organization [facility] Healthcare Address [address] [place] [address] Care Team Providers Care Leather Heel Breaster Name Role Phone Amando Cintron MD Unavailable Alfredo Negron MD Primary Care Provide r Angélica Boyd RN Unavailable Unavailable Harjeet Cintron MD Primary Care Prov ider Encounter Details Date Type Department Care Team (Late st Contact Info) Description 03/10/2023 Telephone [facility] Primary Care Medicine Clinic [address] [facility] [address] [place] [address] Alfredo Negron MD [address] [place] [address] Social History Tobacco Use Types [...] slept in a prison (including now)? No 01/23/2023 Sex and Gender Information Value Date Recorded Sex Assigned at Not on file Legal Sex Male 1:17 AM CORRECTIONAL CASE MANAGER Gender Identity Not on file Sexual [...] Chronic Care Management No change(09/20 9:23 AM CORRECTIONAL CASE MANAGER) No Marla Sheppard RN Note: Problem: [...] on filedocumented in this encounter Care Teams Leather Heel Breaster Relationship Specialty Start Date End Date Alfredo Negron MD PCP - General Internal Medicine 10/28/21 01/19/24 Harjeet Cintron MD 1 [place] [address] PCP - General 01/20/24 Amando Cintron MD Surgeon Vascular Surgery 08/25/21 Angélica Boyd, BARTOLOME Registered Nurse Pulmonary Disease 02/09/22 11/08/24 documented as of this encounter
--- OUTSIDE RECORDS SUMMARY | 2025-07-16 16:49 | XMS_ITS | Encounter Summary ---
Author Organization [facility] Address [address] [place] [address] Phone Care Team Providers Care Satellite Specialist Name Role Phone Bruce Guillaume MD [...] RN Unavailable Unavailable Rosalva Prince RN Unavailable [phone] Nisha Lepe RN Unavailable Harjeet Cintron MD Primary Care Prov ider Encounter Details Date Type Department Care Team (Latest Contact Info) Description 09/18/2017 Orders Only [facility] CONVERSION Scanning, Provider Social History Tobacco Use Types Packs/Day Years Used Date Smoking Tobacco: Former Sex and Gender Information Value Date Recorded Sex Assigned at Not on file Legal Sex Male 1:17 AM MOBILE EQUIPMENT MECHANIC Gender Identity Not on file Sexual Orientation Not on file documented as of this encounter Plan of Treatment Scheduled Procedures Name Priority Associated Diagnoses Date/Ti me COLONOSCOPY Iron deficiency anemia, unspecified iron deficiency anemia type documented as of this encounter Procedures Procedure Name Priority Date/Time Associated Diagnosis Comments VASCULAR LABORATORY REPORT 09/18/2017 9:00 PM MOBILE EQUIPMENT MECHANIC VASCULAR LABORATORY REPORT 09/18/2017 9:00 PM MOBILE EQUIPMENT MECHANIC documented in this encounter Results * VASCULAR LABORATORY REPORT (09/18/2017 9:00 PM MOBILE EQUIPMENT MECHANIC) Anatomical Region Laterality Modality Ultrasound us Provider Scanning CV VASCULAR PROCEDURES Final R esult * VASCULAR LABORATORY REPORT (09/18/2017 9:00 PM MOBILE EQUIPMENT MECHANIC) Anatomical Region Laterality Modality Ultrasound us Provider [...] documented as of this encounter Care Teams Satellite Specialist Relationship Specialty Start Date End Date Bruce Guillaume MD PhD [address] [place] [address] PCP - General 09/18/17 10/05/17 Erasmo Masters MD [address] [place] [address] PCP - General 10/06/17 10/17/17 Bruce Guillaume MD PhD [address] [place] [address] PCP - General 10/18/17 10/23/17 Erasmo Masters MD [address] [place] [address] PCP - General 10/24/17 10/24/17 Bruce Guillaume MD PhD [address] [place] [address] PCP - General 10/25/17 11/20/17 Erasmo Masters MD [address] [place] [address] PCP - General 11/21/17 11/21/17 Bruce Guillaume MD PhD [address] [place] [address] PCP - General 11/22/17 01/21/19 Sorin Santos MD 1 [facility] [address] [place] [address] PCP - General Internal Medicine 01/22/19 01/15/21 Alfredo Negron MD 1 [facility] [address] [place] [address] PCP - General 01/16/21 10/26/21 Sorin Santos MD 1 [facility] [address] [place] [address] PCP - General 10/27/21 10/27/21 Alfredo Negron MD 1 [facility] [address] [place] [address] PCP - General Internal Medicine 10/28/21 01/19/24 Harjeet Cintron MD 1 [place] [address] PCP - General 01/20/24 Amando Cintron MD 1 [facility] [address] [place] [address] Surgeon Vascular Surgery 08/25/21 Angélica Boyd RN Registered Nurse Pulmonary Disease 02/09/22 11/08/24 Rosalva Prince RN 4590 [facility] [address] [place] [address] SHOP Outpatient Couturiere 01/03/23 01/15/23 Nisha Lepe RN [address] [place] [address] [address] [place] [address] Generating Station Mechanic 01/21/23 02/16/23 documented as of this encounter
--- OUTSIDE RECORDS SUMMARY | 2025-07-16 16:49 | XMS_ITS | Encounter Summary ---
Author Organization [facility] Address [address] [place] [address] Phone Care Team Providers Care It Application Administrator Name Role Phone Amando Cintron MD Unavailable [phone] Harjeet Cintron MD Primary Care Prov ider Encounter Details Date Type Department Care Team (Late st Contact Info) Description 07/16/2025 Telephone [facility] Medicine Cardiology [address] [facility] Advanced Medicine 8th Floor [address] [address] Murali Chandra MD [address] [facility] [address] [place] [address] Social History Tobacco Use Types [...] often do you attend chur ch or spiritism services? Never 05/11/2023 Do you belong to any clubs o r organizations such as cheondoism groups, unions, fraternal or athletic groups, or [...] in a long-term (including now)? No 05/11/2023 AUDIT-C Answer Date [...] on file Legal Sex Male 1:17 AM RIBBON WINDER Gender Identity Not on file Sexual Orientation Not on file documented as of this encounter Miscellaneous Notes * Telephone Encounter - Nadege King - 07/16/2025 10:57 AM CST Corazon Pt had his Echo completed yesterday, 07/15/25. Pt wondering if has recvd and been able to reviewthe results? Pls return call to pt to discuss. ON WINDER documented in this encounter Plan of Treatment [...] take, when to call CM or provider. [facility] Chronic Pain Care Plan Chronic Care Management No change(09/20 9:23 AM RIBBON WINDER) No Marla Sheppard, RN Note: Problem: Chronic [...] on filedocumented in this encounter Care Teams It Application Administrator Relationship Specialty Start Date End Date Harjeet Cintorn MD 1 [place] [address] PCP - General 01/20/24 Amando Cintron MD Surgeon Vascular Surgery 08/25/21 documented as of this encounter
--- OUTSIDE RECORDS SUMMARY | 2025-07-16 16:49 | XMS_ITS | Encounter Summary ---
Author Organization [facility] Address [address] [place] [address] Phone Care Team Providers Care Domestic Technician Name Role Phone Bruce Guillaume MD PhD Primary Care Provide r Erasmo Masters MD Primary Care Provider [phone] Bruce Guillaume MD PhD Primary Care Provide r Erasmo Masters MD Primary Care Provider [phone] Bruce Guillaume MD PhD Primary Care Provide r Erasmo Masters MD Primary Care Provider [phone] Bruce Guillaume MD PhD Primary Care Provide r Bruce Guillaume MD PhD Primary Care Provide r Erasmo Masters MD Primary Care Provider [phone] Bruce Guillaume MD PhD Primary Care Provide r Bruce Guillaume MD PhD Primary Care Provide r Erasmo Masters MD Primary Care Provider [phone] Bruce Guillaume MD PhD Primary Care Provide r Erasmo Masters MD Primary Care Provider [phone] Bruce Guillaume MD PhD Primary Care Provide r Erasmo Masters MD Primary Care Provider [phone] Bruce Guillaume MD PhD Primary Care Provide r Erasmo Masters MD Primary Care Provider [phone] Markell, Bruce Gregory MD PhD Primary Care Provide r Erasmo Masters MD Primary Care Provider [phone] Markell, Bruce Gregory MD PhD Primary Care Provide r Erasmo Masters MD Primary Care Provider [phone] Winkler, Bruce Gregory MD PhD Primary Care Provide r Sorin Santos MD Primary Care Provider Alfredo Negron MD Primary Care Provide r Amando Cintron MD Unavailable [phone] Sorin Santos MD Primary Care Provider Alfredo Negron MD Primary Care Provide r Angélica Boyd RN Unavailable Unavailable Rosalva Prince RN Unavailable [phone] Nisha Lepe RN Unavailable [phone] Harjeet Cintron MD Primary Care Prov ider Encounter Details Date Type Department Care Team (Latest Contact Info) Description 01/27/2017 Orders Only [facility] CONVERSION Scanning, Provider Social History Tobacco Use Types Packs/Day Years Used Date Smoking Tobacco: Never Assessed Sex and Gender Information Value Date Recorded Sex Assigned at Not on file 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 Gender Identity Not on file Sexual Orientation [...] documented as of this encounter Care Teams Domestic Technician Relationship Specialty Start Date End Date Bruce Guillaume MD PhD [address] [place] [address] [address] [address] [address] PCP - General 11/24/16 02/05/17 Erasmo Masters MD [address] [place] [address] PCP - General 02/06/17 05/28/17 Bruce Guillaume MD PhD [email or web address] [place] [address] PCP - General 05/29/17 05/29/17 Erasmo Masters MD [address] [place] [address] PCP - General 05/30/17 05/31/17 Bruce Guillaume MD PhD [email or web address] [place] [address] PCP - General 06/01/17 06/01/17 Erasmo Masters MD [address] [place] [address] PCP - General 06/02/17 06/08/17 Bruce Guillaume MD PhD [email or web address] [place] [address] PCP - General 06/09/17 06/25/17 Bruce Guillaume MD PhD [address] [facility] [address] [place] [address] PCP - General 06/26/17 06/26/17 Erasmo Masters MD [address] [place] [address] PCP - General 06/27/17 06/27/17 Bruce Guillaume MD PhD [address] [email or web address] [address] [place] [address] PCP - General 06/28/17 06/28/17 Bruce Guillaume MD PhD [address] [employer] [place] [address] PCP - General 06/29/17 07/10/17 Erasmo Masters MD [address] [place], [place] [address] PCP - General 07/11/17 07/27/17 Bruce Guillaume MD PhD [address] [place] [address] [email or web address] [address] PCP - General 07/28/17 07/28/17 Erasmo Masters MD [address] [place] [address] PCP - General 07/29/17 08/20/17 Bruce Guillaume MD PhD [address] [place] [address] [email or web address] [address] PCP - General 08/21/17 08/23/17 Erasmo Masters MD [address] [place], [place] [address] PCP - General 08/24/17 09/17/17 Bruce Guillaume MD PhD [address] [email or web address] [address] PCP - General 09/18/17 10/05/17 Erasmo Masters MD [address] [place], [place] [address] PCP - General 10/06/17 10/17/17 Bruce Guillaume MD PhD [address] [place] [address] PCP - General 10/18/17 10/23/17 Erasmo Masters MD [address] [place] [address] PCP - General 10/24/17 10/24/17 Bruce Guillaume MD PhD [address] [place] [address] PCP - General 10/25/17 11/20/17 Erasmo Masters MD [address] [place] [address] PCP - General 11/21/17 11/21/17 Bruce Guillaume MD PhD [address] [place] [address] PCP - General 11/22/17 01/21/19 Sorin Santos MD [address] [address] PCP - General Internal Medicine 01/22/19 01/15/21 Alfredo Negron MD [address] [address] PCP - General 01/16/21 10/26/21 Sorin Santos MD [address] [address] PCP - General 10/27/21 10/27/21 Alfredo Negron MD 1 [facility] [address] [place] [address] PCP - General Internal Medicine 10/28/21 01/19/24 Harjeet Cintron MD 1 [place] [address] PCP - General 01/20/24 Amando Cintron MD [address] [address] Surgeon Vascular Surgery 08/25/21 Angélica Boyd RN Registered Nurse Pulmonary Disease 02/09/22 11/08/24 Rosalva Prince, RN 4590 [facility] [address] [place] [address] SHOP Outpatient Loss Prevention And Safety Manager 01/03/23 01/15/23 Nisha Leep, BARTOLOME [address] [place] [address] [address] [place] [address] Airplane Designer 01/21/23 02/16/23 documented as of this encounter
--- OUTSIDE RECORDS SUMMARY | 2025-07-16 16:49 | XMS_ITS | Encounter Summary ---
Author Organization [facility] Healthcare Address [address] [place] [address] Care Team Providers Care Geneticist Name Role Phone Amando Cintron MD Unavailable Alfredo Negron MD Primary Care Provide r Angélica Boyd RN Unavailable Unavailable Rosalva Prince RN Unavailable [phone] Nisha Lepe RN Unavailable Harjeet Cintron MD Primary Care Prov ider Encounter Details Date Type Department Care Team (Late st Contact Info) Description 07/05/2022 Telephone [facility] Primary Care Medicine Clinic [address] [facility] [address] [place] [address] Alfredo Negron MD [address] [facility] [address] [place] [address] Social History Tobacco Use Types Packs/Day Years [...] on file Legal Sex Male 1:17 AM TAR MAN Gender Identity Not on file Sexual [...] No change(02/11 1:04 PM CDT) No Zahira oJ, RN Note: Problem: Altered Health Maintenance related [...] (rather than stopping them without telling anyone). [facility] Chronic Pain Care Plan Chronic Care Management No change(09/20 9:23 AM TAR MAN) Marla Mcdaniel RN Note: Problem: Chronic [...] documented as of this encounter Care Teams Geneticist Relationship Specialty Start Date End Date Alfredo Negron MD PCP - General Internal Medicine 10/28/21 01/19/24 Harjeet Cintron MD 1 [place] [address] PCP - General 01/20/24 Amando Cintron MD Surgeon Vascular Surgery 08/25/21 Angélica Boyd RN Registered Nurse Pulmonary Disease 02/09/22 11/08/24 Rosalva Prince RN 4590 [facility] [address] [place] [address] SHOP Outpatient Drill Press Tender 01/03/23 01/15/23 Nisha Lepe, BARTOLOME [address] [place] [address] [address] [place] [address] Furniture Mover Helper 01/21/23 02/16/23 documented as of this encounter
--- OUTSIDE RECORDS SUMMARY | 2025-07-16 16:49 | XMS_ITS | Encounter Summary ---
Author Organization [facility] Healthcare Address [address] [place] [address] Care Team Providers Care Track Mechanic Name Role Phone Amando Cintron MD Unavailable [phone] Harjeet Cintron MD Primary Care Prov ider Reason for Referral * (Routine) - Pending Review Specialty Diagnoses / Procedures Referred By Contlaura t Referred To Contact Diagnoses Hx of AKA (above knee amputation), left (HCC) Procedures Miscellaneous DME Harjeet Cintron MD 1 [place] [address] Phone: tel: fax: Referral ID Status Reason Start Date Expiration Date V isits Requested Visits Authorized [id number] Pending Review 07/15/2025 08/14/2026 1 1 N ANNOUNCER Encounter Details Date Type Department Care Team (Late st Contact Info) Description 07/15/[address] [facility] Primary Care Medicine Clinic [address] [facility] [address] [place] [address] Harjeet Cintron MD 1 [place] [address] Hx of AKA (above knee [...] any clubs o r organizations such as hindu groups, unions, fraternal or athletic groups, or [...] on file Legal Sex Male 1:17 AM TRAIN ANNOUNCER Gender Identity Not on file Sexual Orientation Not on file documented as of this encounter Progress Notes * Harjeet Cintron MD - 07/15/2025 8:01 AM CST Order placed for 20 inch wide front wheeled walker. N ANNOUNCER documented in this encounter Plan of Treatment [...] when to call CM or provider. [facility] Chronic Pain Care Plan Chronic Care Management No change(09/20 9:23 AM TRAIN ANNOUNCER) Marla Mcdaniel, RN Note: Problem: Chronic Pain// [...] 07/15/2025 documented in this encounter Care Teams Track Mechanic Relationship Specialty Start Date End Date Harjeet Cintron MD 1 [place] [address] PCP - General 01/20/24 Amando Cintron MD Surgeon Vascular Surgery 08/25/21 documented as of this encounter
--- OUTSIDE RECORDS SUMMARY | 2025-07-16 16:49 | XMS_ITS | Encounter Summary ---
Author Organization [facility] Healthcare Address [address] [place] [address] Care Team Providers Care Embossing Machine Operator Name Role Phone Amando Cintron MD Unavailable Alfredo Negron MD Primary Care Provide r Angélica Boyd RN Unavailable Unavailable Rosalva Prince RN Unavailable [phone] Nsiha Lepe RN Unavailable Harjeet Cintron MD Primary Care Prov ider Encounter Details Date Type Department Care Team (Late st Contact Info) Description 08/26/2022 Telephone [facility] Primary Care Medicine Clinic [address] [facility] [address] [place] [address] Alfredo Negron MD [address] [facility] [address] [place] [address] Social History Tobacco Use Types Packs/Day Years [...] on file Legal Sex Male 1:17 AM GILL NET STRINGER Gender Identity Not on file Sexual Orientation [...] stopping them without telling anyone). [facility] Chronic Pain Care Plan Chronic Care Management No change(09/20 9:23 AM GILL NET STRINGER) Marla Mcdaniel RN Note: Problem: Chronic Pain// [...] documented as of this encounter Care Teams Embossing Machine Operator Relationship Specialty Start Date End Date Alfredo Negron MD PCP - General Internal Medicine 10/28/21 01/19/24 Harjeet Cintron MD 1 [place] [address] PCP - General 01/20/24 Amando Cintron MD Surgeon Vascular Surgery 08/25/21 Angélica Boyd RN Registered Nurse Pulmonary Disease 02/09/22 11/08/24 Rosalva Prince, BARTOLOME 45[address] [facility] [address] [place] [address] SHOP Outpatient Vegetable Grader 01/03/23 01/15/23 Nisha Lepe, BARTOLOME [address] [place] [address] [address] [place] [address] Statistical Programmer 01/21/23 02/16/23 documented as of this encounter
--- OUTSIDE RECORDS SUMMARY | 2025-07-16 16:49 | XMS_ITS | Encounter Summary ---
Author Organization [facility] Healthcare Address [address] [place] [address] Care Team Providers Care Chemical Treatment Plant Technician Name Role Phone Amando Cintron MD Unavailable Alfredo Negron MD Primary Care Provide r Angélica Boyd RN Unavailable Unavailable Rosalva Prince RN Unavailable [phone] Nisha Lepe RN Unavailable [phone] Harjeet Cintron MD Primary Care Prov ider Encounter Details Date Type Department Care Team (Late st Contact Info) Description 08/22/2022 Telephone [facility] Primary Care Medicine Clinic [address] [facility] [address] [place] [address] Alfredo Negron MD [address] [facility] [address] [place] [address] Social History Tobacco Use Types Packs/Day Years [...] on file 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 [facility] Chronic Pain Care Plan Chronic Care Management No change(09/20 9:23 AM CYCLE DIRECTOR) Marla Mcdaniel RN Note: Problem: Chronic [...] documented as of this encounter Care Teams Chemical Treatment Plant Technician Relationship Specialty Start Date End Date Alfredo Negron MD PCP - General Internal Medicine 10/28/21 01/19/24 Harjeet Cintron MD 1 [place] [address] PCP - General 01/20/24 Amando Cintron MD Surgeon Vascular Surgery 08/25/21 Angélica Boyd RN Registered Nurse Pulmonary Disease 02/09/22 11/08/24 Rosalva Prince RN [address] [facility] [address] [place] [address] SHOP Outpatient Director Hedis 01/03/23 01/15/23 Nisha Lepe RN [address] [facility] [address] [place] [address] Farmworker General 01/21/23 02/16/23 documented as of this encounter
--- OUTSIDE RECORDS SUMMARY | 2025-07-16 16:49 | XMS_ITS | Encounter Summary ---
Author Organization [facility] Healthcare Address [address] [place] [address] Care Team Providers Care Brick Tester Name Role Phone Amando Cintron MD Unavailable Alfredo Negron MD Primary Care Provide r Angélica Boyd RN Unavailable Unavailable Rosalva Prince RN Unavailable [phone] Nisha Lepe RN Unavailable Harjeet Cintron MD Primary Care Prov ider Encounter Details Date Type Department Care Team (Late st Contact Info) Description 08/25/2022 Telephone [facility] Primary Care Medicine Clinic [address] [facility] [address] [place] [address] Alfredo Negron MD [address] [facility] [address] [place] [address] Social History Tobacco Use Types Packs/Day Years [...] on file Legal Sex Male 1:17 AM COMMUNITY CHEST OFFICER Gender Identity Not on file Sexual [...] (rather than stopping them without telling anyone). [facility] Chronic Pain Care Plan Chronic Care Management No change(09/20 9:23 AM COMMUNITY CHEST OFFICER) Marla Mcdaniel RN Note: Problem: Chronic [...] documented as of this encounter Care Teams Brick Tester Relationship Specialty Start Date End Date Alfredo Negron MD PCP - General Internal Medicine 10/28/21 01/19/24 Harjeet Cintron MD 1 [place] [address] PCP - General 01/20/24 Amando Cintron MD Surgeon Vascular Surgery 08/25/21 Angélica Boyd RN Registered Nurse Pulmonary Disease 02/09/22 11/08/24 Rosalva Prince, BARTOLOME [address] [facility] [address] [place] [address] SHOP Outpatient Manufacturing Scheduler 01/03/23 01/15/23 Nisha Lepe, BARTOLOME [address] [place] [address] [address] [place] [address] Salvage Inspector 01/21/23 02/16/23 documented as of this encounter
--- OUTSIDE RECORDS SUMMARY | 2025-07-16 16:49 | XMS_ITS | Encounter Summary ---
Author Organization [facility] Healthcare Address [address] [place] [address] Care Team Providers Care Polisher Apprentice Name Role Phone Amando Cintron MD Unavailable Alfredo Negron MD Primary Care Provide r Angélica Boyd RN Unavailable Unavailable Rosalva Prince RN Unavailable [phone] Nisha Lepe RN Unavailable Harjeet Cintron MD Primary Care Prov ider Encounter Details Date Type Department Care Team (Late st Contact Info) Description 08/17/2022 Telephone [facility] Primary Care Medicine Clinic [address] [facility] [address] [place] [address] Alfredo Negron MD [address] [facility] [address] [place] [address] Social History Tobacco Use Types Packs/Day Years [...] on file 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 Gender Identity Not on file Sexual Orientation Not on file documented as of this encounter Functional Status * Alcohol Withdrawal BP Hierarchy Answer Date of Assessment Author Ibanez 08/19/2022 2:21 PM WASHER AND CAPPER MACHINE OPERATOR Brandon Sarabia MA documented as of this [...] Chronic Care Management No change(09/20 9:23 AM WASHER AND CAPPER MACHINE OPERATOR) Marla Mcdaniel, RN Note: Problem: Chronic Pain// [...] documented as of this encounter Care Teams Polisher Apprentice Relationship Specialty Start Date End Date Alfredo Negron MD PCP - General Internal Medicine 10/28/21 01/19/24 Harjeet Cintron MD 1 [place] [address] PCP - General 01/20/24 Amando Cintron MD Surgeon Vascular Surgery 08/25/21 Angélica Boyd RN Registered Nurse Pulmonary Disease 02/09/22 11/08/24 Rosalva Prince RN 4590 [facility] [address] [place] [address] SHOP Outpatient Tab Builder 01/03/23 01/15/23 Nisha Lepe RN [address] [facility] [address] [place] [address] Chain Hooker 01/21/23 02/16/23 documented as of this encounter
--- OUTSIDE RECORDS SUMMARY | 2025-07-16 16:49 | XMS_ITS | Encounter Summary ---
Author Organization [facility] Address [address] [place] [address] Phone Care Team Providers Care Supervisor Customer Complaint Service Name Role Phone Erasmo Masters MD Primary Care Provider [phone] Markell, Bruce Gregory MD PhD Primary Care Provide r Erasmo Masters MD Primary Care Provider [phone] Markell, Bruce Gregory MD PhD Primary Care Provide r Erasmo Masters MD Primary Care Provider [phone] Markell, Bruec Gregory MD PhD Primary Care Provide r Bruce Guillaume MD PhD Primary Care Provide r Erasmo Masters MD Primary Care Provider [phone] Bruce Guillaume MD PhD Primary Care Provide r Bruce Guillaume MD PhD Primary Care Provide r Erasmo Masters MD Primary Care Provider [phone] Bruce Guillaume MD PhD Primary Care Provide r Erasmo Masters MD Primary Care Provider [phone] Markell, Bruce Gregory MD PhD Primary Care Provide r Erasmo Masters MD Primary Care Provider [phone] Bruce Guillaume MD PhD Primary Care Provide r Erasmo Masters MD Primary Care Provider [phone] Bruce Guillaume MD PhD Primary Care Provide r Erasmo Masters MD Primary Care Provider [phone] Bruce Guillaume MD PhD Primary Care Provide r Erasmo Masters MD Primary Care Provider [phone] Markell, Bruce Gregory MD PhD Primary Care Provide r Sorin Santos MD Primary Care Provider Alfredo Negron MD Primary Care Provide r Amando Cintron MD Unavailable Sorin Santos MD Primary Care Provider Alfredo Negron MD Primary Care Provide r Angélica Boyd RN Unavailable Unavailable Rosalva Prince RN Unavailable [phone] Nisha Lepe RN Unavailable Harjeet Cintron MD Primary Care Prov ider Encounter Details Date Type Department Care Team (Latest Contact Info) Description 03/09/2017 Orders Only [facility] CONVERSION Scanning, Provider Social History Tobacco Use Types Packs/Day Years Used Date Smoking Tobacco: Never Assessed Sex and Gender Information Value Date Recorded Sex Assigned at Not on file Legal Sex Male 1:17 AM HEAVY EQUIPMENT SUPERVISOR Gender Identity Not on file Sexual [...] as of this encounter Care Teams Supervisor Customer Complaint Service Relationship Specialty Start Date End Date Erasmo Masters MD [address] [place] [address] PCP - General 02/06/17 05/28/17 Bruce Guillaume MD PhD [address] [place] [address] PCP - General 05/29/17 05/29/17 Erasmo Masters MD [address] [place] [address] PCP - General 05/30/17 05/31/17 Bruce Guillaume MD PhD [address] [facility] [address] [place] [address] PCP - General 06/01/17 06/01/17 Erasmo Masters MD [address] [place] [address] PCP - General 06/02/17 06/08/17 Bruce Guillaume MD PhD [address] [place] [address] PCP - General 06/09/17 06/25/17 Bruce Guillaume MD PhD [address] [address] [place] [address] PCP - General 06/26/17 06/26/17 Erasmo Masters MD [address] [place] [address] PCP - General 06/27/17 06/27/17 Bruce Guillaume MD PhD 1400 [facility] [address] [place] [address] PCP - General 06/28/17 06/28/17 Bruce Guillaume MD PhD 1400 [facility] [address] [place] [address] PCP - General 06/29/17 07/10/17 Erasmo Masters MD [address] [place], [place] [address] PCP - General 07/11/17 07/27/17 Bruce Guillaume MD PhD [address] [place] [address] [place] [address] PCP - General 07/28/17 07/28/17 Erasmo Masters MD [address] [place] [address] PCP - General 07/29/17 08/20/17 Bruce Guillaume MD PhD [address] [place] [address] [place] [address] PCP - General 08/21/17 08/23/17 Erasmo Masters MD [address] [place], [place] [address] PCP - General 08/24/17 09/17/17 Bruce Guillaume MD PhD [address] [place] [address] [place] [address] PCP - General 09/18/17 10/05/17 Erasmo Masters MD [address] [place] [address] PCP - General 10/06/17 10/17/17 Bruce Guillaume MD PhD [address] [place] [address] [place] [address] PCP - General 10/18/17 10/23/17 Erasmo Masters MD [address] [place] [address] PCP - General 10/24/17 10/24/17 Bruce Guillaume MD PhD [address] [address] PCP - General 10/25/17 11/20/17 Erasmo Masters MD [address] [place] [address] PCP - General 11/21/17 11/21/17 Bruce Guillaume MD PhD [address] [place] [address] PCP - General 11/22/17 01/21/19 Sorin Santos MD [id number] [place] [address] PCP - General Internal Medicine 01/22/19 01/15/21 Alfredo Negron MD [address] [address] PCP - General 01/16/21 10/26/21 Sorin Santos MD 1 [facility] [address] [place] [address] PCP - General 10/27/21 10/27/21 Alfredo Negron MD [address] [place] [address] PCP - General Internal Medicine 10/28/21 01/19/24 Harjeet Cintron MD 1 [place] [address] PCP - General 01/20/24 Amando Cintron MD 1 [facility] [address] [place] [address] Surgeon Vascular Surgery 08/25/21 Angélica Boyd RN Registered Nurse Pulmonary Disease 02/09/22 11/08/24 Rosalva Prince, BARTOLOME 4590 [facility] [address] [place] [address] SHOP Outpatient Early Intervention School Psychologist 01/03/23 01/15/23 Nisha Lepe RN [address] [place] [address] 300 [place] [address] Primary Care Nurse Practitioner 01/21/23 02/16/23 documented as of this encounter
--- OUTSIDE RECORDS SUMMARY | 2025-07-16 16:49 | XMS_ITS | Encounter Summary ---
Author Organization [facility] Healthcare Address [address] [place] [address] Care Team Providers Care Bread Jockey Name Role Phone Amando Cintron MD Unavailable Alfredo Negron MD Primary Care Provide r Angélica Boyd RN Unavailable Unavailable Rosalva Prince RN Unavailable [phone] Nisha Lepe RN Unavailable Harjeet Cintron MD Primary Care Prov ider Encounter Details Date Type Department Care Team (Late st Contact Info) Description 07/20/2022 Telephone [facility] Primary Care Medicine Clinic [address] [facility] [address] [place] [address] Alfredo Negron MD [address] [facility] [address] [place] [address] Social History Tobacco Use Types Packs/Day Years [...] on file 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 [facility] Chronic Pain Care Plan Chronic Care Management No change(09/20 9:23 AM STRAW HAT MACHINE OPERATOR) Marla Mcdaniel RN Note: Problem: Chronic [...] documented as of this encounter Care Teams Bread Jockey Relationship Specialty Start Date End Date Alfredo Negron MD PCP - General Internal Medicine 10/28/21 01/19/24 Harjeet Cintron MD 1 [place] [address] PCP - General 01/20/24 Amando Cintron MD Surgeon Vascular Surgery 08/25/21 Angélica Boyd RN Registered Nurse Pulmonary Disease 02/09/22 11/08/24 Rosalva Prince RN 4590 [facility] [address] [place] [address] SHOP Outpatient Stitcher Standard Machine 01/03/23 01/15/23 Nisha Lepe, BARTOLOME [address] [place] [address] [address] [place] [address] Geomagnetist 01/21/23 02/16/23 documented as of this encounter
--- OUTSIDE RECORDS SUMMARY | 2025-07-16 16:49 | XMS_ITS | Encounter Summary ---
Author Organization [facility] Address [address] [place] [address] Phone Care Team Providers Care Automotive Warranty Administrator Name Role Phone Bruce Guillaume MD PhD Primary Care Provide r Bruce Guillaume MD PhD Primary Care Provide r Erasmo Masters MD Primary Care Provider [phone] Bruce Guillaume MD PhD Primary Care Provide r Bruce Guillaume MD PhD Primary Care Provide r Erasmo Masters MD Primary Care Provider [phone] Bruce Guillaume MD PhD Primary Care Provide r Erasmo Masters MD Primary Care Provider [phone] Bruce Guillaume MD PhD Primary Care Provide r Erasmo Masters MD Primary Care Provider [phone] Bruce Guillaume MD PhD Primary Care Provide r Erasmo Masters MD Primary Care Provider [phone] Bruce Guillaume MD PhD Primary Care Provide r Erasmo Masters MD Primary Care Provider Bruce Guillaume MD PhD Primary Care Provide r Erasmo Masters MD Primary Care Provider Bruce Guillaume MD PhD Primary Care Provide r Sorin Sanots MD Primary Care Provider Alfredo Negron MD Primary Care Provide r Amando Cintron MD Unavailable [phone] Sorin Santos MD Primary Care Provider Alfredo Negron MD Primary Care Provide r Angélica Boyd RN Unavailable Unavailable Rosalva Prince RN Unavailable [phone] Nisha Lepe RN Unavailable [phone] Harjeet Cintron MD Primary Care Prov ider Encounter Details Date Type Department Care Team (Latest Contact Info) Description 06/15/2017 Orders Only [facility] CONVERSION Scanning, Provider Social History Tobacco Use Types Packs/Day Years Used Date Smoking Tobacco: Never Assessed Sex and Gender Information Value Date Recorded Sex Assigned at Not on file Legal Sex Male 1:17 AM FLAGSETTER Gender Identity Not on file Sexual Orientation Not on file documented as of this encounter Plan of Treatment Scheduled Procedures Name Priority Associated Diagnoses Date/Ti me COLONOSCOPY Iron deficiency anemia, unspecified iron deficiency anemia type documented as of this encounter Procedures Procedure Name Priority Date/Time Associated Diagnosis Comments VASCULAR LABORATORY REPORT 06/15/2017 4:20 PM FLAGSETTER VASCULAR LABORATORY REPORT 06/15/2017 4:20 PM FLAGSETTER documented in this encounter Results * VASCULAR LABORATORY REPORT (06/15/2017 4:20 PM FLAGSETTER) Anatomical Region Laterality Modality Ultrasound us Provider Scanning CV VASCULAR PROCEDURES Final R esult * VASCULAR LABORATORY REPORT (06/15/2017 4:20 PM FLAGSETTER) Anatomical Region Laterality Modality Ultrasound us Provider [...] as of this encounter Care Teams Automotive Warranty Administrator Relationship Specialty Start Date End Date Bruce Guillaume MD PhD [address] [place] [address] [place] [address] PCP - General 06/09/17 06/25/17 Bruce Guillaume MD PhD [address] [place] [address] [place] [employer] [place] [address] PCP - General 06/26/17 06/26/17 Erasmo Masters MD [address] [place] [address] PCP - General 06/27/17 06/27/17 Bruce Guillaume MD PhD [address] [place] [address] PCP - General 06/28/17 06/28/17 Bruce Guillaume MD PhD [address] [place] [address] PCP - General 06/29/17 07/10/17 Erasmo Masters MD [address] [facility] [place] [address] PCP - General 07/11/17 07/27/17 Bruce Guillaume MD PhD [address] [place] [address] PCP - General 07/28/17 07/28/17 Erasmo Masters MD [address] [place] [address] PCP - General 07/29/17 08/20/17 Bruce Guillaume MD PhD [address] [place] [address] [place] [address] PCP - General 08/21/17 08/23/17 Erasmo Masters MD [address] [place] [address] PCP - General 08/24/17 09/17/17 Bruce Guillaume MD PhD [address] [place] [address] [place] [address] PCP - General 09/18/17 10/05/17 Erasmo Masters MD [address] [place] [address] PCP - General 10/06/17 10/17/17 Bruce Guillaume MD PhD [address] [place] [address] [place] [address] PCP - General 10/18/17 10/23/17 Erasmo Masters MD [address] [place] [address] PCP - General 10/24/17 10/24/17 Bruce Guillaume MD PhD [address] [place] [address] PCP - General 10/25/17 11/20/17 Erasmo Masters MD [address] [place] [address] PCP - General 11/21/17 11/21/17 Bruce Guillaume MD PhD [address] [place] [address] PCP - General 11/22/17 01/21/19 Sorin Santos MD 1 [facility] [address] [place] [address] PCP - General Internal Medicine 01/22/19 01/15/21 Alfredo Negron MD 1 [facility] [address] [place] [address] PCP - General 01/16/21 10/26/21 Sorin Santos MD 1 [facility] [address] [place] [address] PCP - General 10/27/21 10/27/21 Alfredo Negron MD 1 [facility] [address] [place] [address] PCP - General Internal Medicine 10/28/21 01/19/24 Harjeet Cintron MD 1 [place] [address] PCP - General 01/20/24 Amando Cintron MD 1 [facility] [address] [place] [address] Surgeon Vascular Surgery 08/25/21 Angélica Boyd RN Registered Nurse Pulmonary Disease 02/09/22 11/08/24 Rosalva Prince RN 4590 [facility] [address] [place] [address] SHOP Outpatient Rock Breaker 01/03/23 01/15/23 Nisha Lepe RN [address] [place] [address] 300 [place] [address] Psychiatric Cns 01/21/23 02/16/23 documented as of this encounter
--- OUTSIDE RECORDS SUMMARY | 2025-07-16 16:49 | XMS_ITS | Encounter Summary ---
Author Organization [facility] Healthcare Address [address] [place] [address] Care Team Providers Care Local Superintendent Name Role Phone Amando Cintron MD Unavailable Alfredo Negron MD Primary Care Provide r Angélica Boyd RN Unavailable Unavailable Rosalva Prince RN Unavailable [phone] Nisha Lepe RN Unavailable [phone] Harjeet Cintron MD Primary Care Prov ider Encounter Details Date Type Department Care Team (Late st Contact Info) Description 08/23/2022 Telephone [facility] Primary Care Medicine Clinic [address] 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 [facility] Chronic Pain Care Plan Chronic Care Management No change(09/20 9:23 AM SUPERINTENDENT GREENS) Marla Mcdaniel RN Note: Problem: Chronic Pain// [...] documented as of this encounter Care Teams Local Superintendent Relationship Specialty Start Date End Date Alfredo Negron MD PCP - General Internal Medicine 10/28/21 01/19/24 Harjeet Cintron MD 1 [place] [address] PCP - General 01/20/24 Amando Cintron MD Surgeon Vascular Surgery 08/25/21 Angélica Boyd RN Registered Nurse Pulmonary Disease 02/09/22 11/08/24 Rosalva Prince, BARTOLOME 4590 [facility] [address] [place] [address] SHOP Outpatient Educational Manager 01/03/23 01/15/23 Nisha Lepe, BARTOLOME [address] [place] [address] 300 [place] [address] Athletic Equipment Manager 01/21/23 02/16/23 documented as of this encounter
--- OUTSIDE RECORDS SUMMARY | 2025-07-16 16:49 | XMS_ITS | Encounter Summary ---
Author Organization [facility] Healthcare Address [address] [place] [address] Care Team Providers Care Recruitment Internship Name Role Phone Amando Cintron MD Unavailable Alfredo Negron MD Primary Care Provide r Angélica Boyd RN Unavailable Unavailable Rosalva Prince RN Unavailable [phone] Nisha Lepe RN Unavailable Harjeet Cintron MD Primary Care Prov ider Encounter Details Date Type Department Care Team (Late st Contact Info) Description 08/29/2022 Telephone [facility] Primary Care Medicine Clinic [address] [facility] [address] [place] [address] Alfredo Negron MD [address] [facility] [address] [place] [address] Social History Tobacco Use Types Packs/Day Years [...] on file Legal Sex Male 1:17 AM LACTATION NURSE Gender Identity Not on file Sexual Orientation [...] (rather than stopping them without telling anyone). [facility] Chronic Pain Care Plan Chronic Care Management No change(09/20 9:23 AM LACTATION NURSE) Marla Mcdaniel RN Note: Problem: Chronic Pain// [...] documented as of this encounter Care Teams Recruitment Internship Relationship Specialty Start Date End Date Alfredo Negron MD PCP - General Internal Medicine 10/28/21 01/19/24 Harjeet Cintron MD 1 [place] [address] PCP - General 01/20/24 Amando Cintron MD Surgeon Vascular Surgery 08/25/21 Angélica Boyd RN Registered Nurse Pulmonary Disease 02/09/22 11/08/24 Rosalva Prince, BARTOLOME 4590 [facility] [address] [place] [address] SHOP Outpatient Rehabilitation Case Coordinator 01/03/23 01/15/23 Nisha Lepe, BARTOLOME [address] [place] [address] [address] [place] [address] Community Health Educator 01/21/23 02/16/23 documented as of this encounter
--- OUTSIDE RECORDS SUMMARY | 2025-07-16 16:50 | XMS_ITS | Encounter Summary ---
Author Organization [facility] Healthcare Address [address] [place] [address] Care Team Providers Care Metalsmith Name Role Phone Amando Cintron MD Unavailable Alfredo Negron MD Primary Care Provide r Angélica Boyd RN Unavailable Unavailable Rosalva Prince RN Unavailable [phone] Nisha Lepe RN Unavailable Harjeet Cintron MD Primary Care Prov ider Encounter Details Date Type Department Care Team (Late st Contact Info) Description 11/22/2022 Telephone [facility] Primary Care Medicine Clinic [address] [facility] [address] [place] [address] Alfredo Negron MD [address] [facility] [address] [place] [address] Social History Tobacco Use Types Packs/Day Years [...] on file Legal Sex Male 1:17 AM ARTIST SUSPECT Gender Identity Not on file Sexual Orientation [...] stopping them without telling anyone). [facility] Chronic Pain Care Plan Chronic Care Management No change(09/20 9:23 AM ARTIST SUSPECT) Marla Mcdaniel RN Note: Problem: Chronic Pain// [...] documented as of this encounter Care Teams Metalsmith Relationship Specialty Start Date End Date Alfredo Nergon MD PCP - General Internal Medicine 10/28/21 01/19/24 Harjeet Cintron MD 1 [place] [address] PCP - General 01/20/24 Amando Cintron MD Surgeon Vascular Surgery 08/25/21 Angélica Boyd, BARTOLOME Registered Nurse Pulmonary Disease 02/09/22 11/08/24 Rosalva Prince, BARTOLOME [address] [employer] [address] [place] [address] SHOP Outpatient Assistant To The Ceo 01/03/23 01/15/23 Nisha Lepe RN [address] [place] [address] [address] [place] [address] Wedding Designer 01/21/23 02/16/23 documented as of this encounter
--- OUTSIDE RECORDS SUMMARY | 2025-07-16 16:50 | XMS_ITS | Encounter Summary ---
Author Organization [facility] Healthcare Address [address] [place] [address] Care Team Providers Care Assistant Pastry Chef Name Role Phone Amando Cintron MD Unavailable Alfredo Negron MD Primary Care Provide r Angélica Boyd RN Unavailable Unavailable Rosalva Prince RN Unavailable [phone] Nisha Lepe RN Unavailable Harjeet Cintron MD Primary Care Prov ider Encounter Details Date Type Department Care Team (Late st Contact Info) Description 12/15/2022 Telephone [facility] Primary Care Medicine Clinic [address] [facility] [address] [place] [address] Alfredo Negron MD [address] [facility] [address] [place] [address] Social History Tobacco Use Types Packs/Day Years [...] on file Legal Sex Male 1:17 AM EDUCATIONAL ADMINISTRATION TEACHER Gender Identity Not on file Sexual [...] Chronic Care Management No change(09/20 9:23 AM EDUCATIONAL ADMINISTRATION TEACHER) Marla Mcdaniel RN Note: Problem: Chronic [...] as of this encounter Care Teams Assistant Pastry Chef Relationship Specialty Start Date End Date Alfredo Negron MD PCP - General Internal Medicine 10/28/21 01/19/24 Harjeet Cintron MD 1 [place] [address] PCP - General 01/20/24 Amando Cintron MD Surgeon Vascular Surgery 08/25/21 Angélica Boyd, BARTOLOME Registered Nurse Pulmonary Disease 02/09/22 11/08/24 Rosalva Prince, BARTOLOME 4590 [facility] [address] [place] [address] SHOP Outpatient Cat Skinner 01/03/23 01/15/23 Nisha Lepe RN [address] [place] [address] [address] [place] [address] Application Development Team Lead 01/21/23 02/16/23 documented as of this encounter
--- OUTSIDE RECORDS SUMMARY | 2025-07-16 16:50 | XMS_ITS | Encounter Summary ---
Author Organization [facility] Healthcare Address [address] [place] [address] Care Team Providers Care Telehealth Nurse Educator Name Role Phone Amando Cintron MD Unavailable Alfredo Negron MD Primary Care Provide r Angélica Boyd RN Unavailable Unavailable Rosalva Prince RN Unavailable [phone] Nisha Lepe RN Unavailable Harjeet Cintron MD Primary Care Prov ider Encounter Details Date Type Department Care Team (Late st Contact Info) Description 11/25/2022 Telephone 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 [facility] Chronic Pain Care Plan Chronic Care Management No change(09/20 9:23 AM SUPERVISOR PAPER MACHINE) Marla Mcdaniel RN Note: Problem: Chronic Pain// [...] documented as of this encounter Care Teams Telehealth Nurse Educator Relationship Specialty Start Date End Date Alfredo Negron MD PCP - General Internal Medicine 10/28/21 01/19/24 Harjeet Cintron MD [address] [place] [address] PCP - General 01/20/24 Amando Cintron MD Surgeon Vascular Surgery 08/25/21 Angélica Boyd, BARTOLOME Registered Nurse Pulmonary Disease 02/09/22 11/08/24 Rosalva Prince, BARTOLOME [address] [facility] [address] [place] [address] SHOP Outpatient Paper Rewinder 01/03/23 01/15/23 Nisha Lepe RN [address] [place] [address] [address] [place] [address] Care Giver 01/21/23 02/16/23 documented as of this encounter
--- OUTSIDE RECORDS SUMMARY | 2025-07-16 16:50 | XMS_ITS | Encounter Summary ---
Author Organization [facility] Healthcare Address [address] [place] [address] Care Team Providers Care Communications Supervisor Name Role Phone Amando Cintron MD Unavailable Alfredo Negron MD Primary Care Provide r Angélica Boyd RN Unavailable Unavailable Rosalva Prince RN Unavailable [phone] Nisha Lepe RN Unavailable Harjeet Cintron MD Primary Care Prov ider Encounter Details Date Type Department Care Team (Late st Contact Info) Description 09/02/2022 Telephone [facility] Primary Care Medicine Clinic [address] [facility] [address] [place] [address] Dewayne Valentine Social History Tobacco [...] on file 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 Gender Identity Not on file Sexual [...] Chronic Care Management No change(09/20 9:23 AM MINE DEVELOPMENT ENGINEER) Marla Mcdaniel RN Note: Problem: Chronic [...] documented as of this encounter Care Teams Communications Supervisor Relationship Specialty Start Date End Date Alfredo Negron MD PCP - General Internal Medicine 10/28/21 01/19/24 Harjeet Cintron MD [address] [place] [address] PCP - General 01/20/24 Amando Cintron MD Surgeon Vascular Surgery 08/25/21 Angélica Boyd RN Registered Nurse Pulmonary Disease 02/09/22 11/08/24 Rosalva Prince, BARTOLOME [address] [facility] [address] [place] [address] SHOP Outpatient Machine Splitter 01/03/23 01/15/23 Nisha Lepe, BARTOLOME [address] [place] [address] [address] [place] [address] Insurance Job Titles 01/21/23 02/16/23 documented as of this encounter
--- OUTSIDE RECORDS SUMMARY | 2025-07-16 16:50 | XMS_ITS | Encounter Summary ---
Author Organization [facility] Healthcare Address [address] [place] [address] Care Team Providers Care Shared Services Manager Name Role Phone Amando Cintron MD Unavailable Alfredo Negron MD Primary Care Provide r Angélica Boyd RN Unavailable Unavailable Rosalva Prince RN Unavailable [phone] Nisha Lepe RN Unavailable [phone] Harjeet Cintron MD Primary Care Prov ider Encounter Details Date Type Department Care Team (Late st Contact Info) Description 08/30/[address] 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 [facility] Chronic Pain Care Plan Chronic Care Management No change(09/20 9:23 AM PROMOTIONS ASSISTANT) Marla Mcdaniel RN Note: Problem: Chronic Pain// [...] documented as of this encounter Care Teams Shared Services Manager Relationship Specialty Start Date End Date Alfredo Negron MD PCP - General Internal Medicine 10/28/21 01/19/24 Harjeet Cintron MD [address] [place] [address] PCP - General 01/20/24 Amando Cintron MD Surgeon Vascular Surgery 08/25/21 Angélica Boyd RN Registered Nurse Pulmonary Disease 02/09/22 11/08/24 Rosalva Prince, BARTOLOME [address] [facility] [address] [place] [address] SHOP Outpatient Winter Intern 01/03/23 01/15/23 Nisha Lepe, BARTOLOME [address] [place] [address] [address] [place] [address] Motel Front Desk Clerk 01/21/23 02/16/23 documented as of this encounter
--- OUTSIDE RECORDS SUMMARY | 2025-07-16 16:50 | XMS_ITS | Encounter Summary ---
Author Organization [facility] Healthcare Address [address] [place] [address] Care Team Providers Care Batch Maker Name Role Phone Amando Cintron MD Unavailable Alfredo Negron MD Primary Care Provide r Angélica Boyd RN Unavailable Unavailable Rosalva Prince RN Unavailable [phone] Nisha Lepe RN Unavailable Harjeet Cintron MD Primary Care Prov ider Encounter Details Date Type Department Care Team (Late st Contact Info) Description 09/05/2022 Telephone [facility] Primary Care Medicine Clinic [address] [facility] [address] [place] [address] Alfredo Negron MD [address] [facility] [address] [place] [address] Social History Tobacco Use Types Packs/Day Years [...] on file 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 [facility] Chronic Pain Care Plan Chronic Care Management No change(09/20 9:23 AM ENVELOPE CUTTER) Marla Mcdaniel RN Note: Problem: Chronic Pain// [...] documented as of this encounter Care Teams Batch Maker Relationship Specialty Start Date End Date Alfredo Negron MD PCP - General Internal Medicine 10/28/21 01/19/24 Harjeet Cintron MD [address] [place] [address] PCP - General 01/20/24 Amando Cintron MD Surgeon Vascular Surgery 08/25/21 Angélica Boyd, BARTOLOME Registered Nurse Pulmonary Disease 02/09/22 11/08/24 Rosalva Prince, BARTOLOME [address] [facility] [address] [place] [address] SHOP Outpatient Plastic Mould Maker 01/03/23 01/15/23 Nisha Lepe RN [address] [place] [address] [address] [place] [address] Rent And Miscellaneous Remittance Clerk 01/21/23 02/16/23 documented as of this encounter
--- OUTSIDE RECORDS SUMMARY | 2025-07-16 16:50 | XMS_ITS | Clinical Summary ---
Author Organization [facility] al Address [address] [place] [address] Care Team Providers Care Traveling Freight Agent Name Role Phone Koko Cintron MD Unavailable [phone] Harjeet Cintron MD Primary Care Prov ider [...] Indications: pain Active blood-glucose,r eceiver,cont (Dexcom G7 Behavioral Science Chair) [facility] For continuous use with Dexcom G7 sensors [...] 09/05/2024 Assessment & Plan (07/11/2025 12:21 PM OPTOMETRY TEACHER): Orders: albuterol HFA (Ventolin HFA) 90 [...] fiber and imodium for symptomatic management at [facility] appt on 05/31/24. Assessment & Plan (11/27/2024 10:57 PM CDT): PLAN: - sent pt to 4th floor lab today to obtain stool culture kit, advised pt to complete this especially before his cruise ship trip next week Assessment & Plan (07/31/2024 10:14 PM OPTOMETRY TEACHER): Patient symptoms are not much improved. Will pursue infectious workup. Patient advised to start psyllium fiber and to increase dietary fiber. PLAN: - Start psyllium fiber - Continue imodium prn - Stool culture, stool osmolality, fecal calprotectin, fecal leukocytes, fecal lactoferrin - Instructed patient to increase dietary fiber and educated patient on foods rich in fiber. Assessment & Plan (06/02/2024 4:31 PM OPTOMETRY TEACHER): Patient reports 2 wk hx of [...] infected Assessment & Plan (06/02/2024 2:32 PM OPTOMETRY TEACHER): Patient's new RLE wound appears most [...] 06/19/2023 Assessment & Plan (06/19/2023 12:59 PM OPTOMETRY TEACHER): On scalp-L parietal, nummular. Another circular [...] 05/10/2023 Assessment & Plan (06/06/2023 2:46 PM OPTOMETRY TEACHER): Mildly below baseline, but also iso recent hospitalization / AKA. No signs/symptoms of bleeding today. Would repeat CBC next visit. Assessment & Plan (05/13/2023 6:05 AM CDT): - 1u PRBC given 05/10 intra-op and again 05/11 - hgb stable in 9s - daily CBC PAD (peripheral artery disease) 05/09/2023 Arterial insufficiency of lower extremity 2022 Assessment & Plan (06/23/2025 8:52 AM OPTOMETRY TEACHER): Orders: Ambulatory referral to Home Health; Future Comprehensive metabolic panel; Future Transthoracic Echo (TTE) Complete W Doppler/CF; Future Assessment & Plan (05/16/2023 6:03 AM CDT): - Admit to Vascular from ER - OR 05/09 for LLE angiogram -> Selective LLE angiogram demonstrating patent L CLINICAL SOCIAL WORK AIDE, occl bypass just distal to origin, patent profunda, heavily diseased SFA with occlusion distally and reconstitution of TPT with peroneal-dominant outflow, sluggish PT, AT occluded. Multiple attempts to cross distal fem-pop FOOD CLERK unsuccessful - Venous duplex, CHATA arterial Doppler ordered - s/p OR for AKA 05/10 - PT/OT, OR dressing down on POD2 - nazia consulted for [facility] - Awaiting Rehab placement. Wound of [...] management. Assessment & Plan (07/07/2023 11:27 AM OPTOMETRY TEACHER): Euvolemic on exam Losartan stopped at [...] scheduled Assessment & Plan (06/19/2023 12:51 PM OPTOMETRY TEACHER): Soft diastolic BP 06/19, patient asx. [...] needed. Assessment & Plan (06/06/2023 2:38 PM OPTOMETRY TEACHER): 06/05/23 soft BPs, mild-mod symptoms (e.g. [...] weights, low Na diet, telemetry -Currently awaiting [facility] bed/authorization Assessment & Plan (01/12/2023 12:00 PM [...] 08/19/2022 Assessment & Plan (08/22/2022 11:14 AM OPTOMETRY TEACHER): -does not appear to be parkinsonian [...] (07/28/2021): Added automatically from request for surgery [id number] Assessment & Plan (08/24/2021 12:13 PM OPTOMETRY TEACHER): 08/24: s/p placement of a R [...] hospitalization Assessment & Plan (07/31/2024 10:20 PM OPTOMETRY TEACHER): PLAN: - Consider wellbutrin and NRT [...] water Assessment & Plan (09/03/2018 4:04 PM OPTOMETRY TEACHER): No concern for BPH. Likely 2/2 [...] 07/26/24 Assessment & Plan (07/11/2025 12:21 PM OPTOMETRY TEACHER): Orders: Basic metabolic panel; Future Assessment & Plan (07/31/2024 10:23 PM OPTOMETRY TEACHER): PLAN: Encouraged to obtain shingles and RSV vaccines Assessment & Plan (06/02/2024 2:35 PM OPTOMETRY TEACHER): PLAN: - Influenza, COVID, and PCV20 [...] 56. Assessment & Plan (07/13/2018 5:14 PM OPTOMETRY TEACHER): -flu shot Anxiety and depression 01/15/2018 Overview (06/19/2023): Currently on venlafaxine 150mg, trazadone 200mg QHS. Previously on Xanax 0.5mg BID PRN, self tapered Assessment & Plan (06/02/2024 2:29 PM OPTOMETRY TEACHER): Patient reports depressed mood in the setting of current health issues. Denies SI. Expressed interest in talk therapy. PLAN: - Continue current regimen - Provided copy of [facility] Behavioral Health resources - Consider augmentation of regimen at next appt Assessment & Plan (06/19/2023 1:04 PM OPTOMETRY TEACHER): Reports ongoing anxiety and decreased mood in the setting of his recent health problems. No SI. States he will consider CBT after thanksgiving. Not interested in med adj at this time. - provided brief counseling and number for [facility] - recheck mood next visit - [...] BID Assessment & Plan (08/22/2022 11:17 AM OPTOMETRY TEACHER): -started on alprazolam during recent hospitalization [...] 10/13/2023: Creatinine 0.80 Eyes: follows with an scholastic aptitude test grader in [place], last saw in 2022 ACEi / ARB: [...] >250s Assessment & Plan (07/31/2024 10:19 PM OPTOMETRY TEACHER): Patient states that he does not eat much food for dinner, and most of patient's hypoglycemic episodes occur in charge gang weigher. PLAN: - Decrease dinner time insulin aspart from 4u to 2u - Decrease insulin glargine from 6u to 5u as previously prescribed - Continue insulin aspart 4u breakfast and lunch Assessment & Plan (06/02/2024 2:43 PM OPTOMETRY TEACHER): Patient reports having more above range BGs during the day frequently requiring correction and still some charge gang weigher hypoglycemic episodes. PLAN: - Decrease glargine from [...] 150) Assessment & Plan (10/06/2023 9:44 AM OPTOMETRY TEACHER): Following with Endocrinology A1C 7.7% today Remains on lantus and SSI, tolerating without complication No changes to regimen today Assessment & Plan (06/19/2023 12:56 PM OPTOMETRY TEACHER): 06/05/23 stopping empa due to contraindication in this patient with PAD / recent amputation. GLP1-RA contraindicated given Hx pancreatitis. - cont metformin - cont glargine 10 for now given he has had both significant lows to 60s and highs to 460. - Ordered CGM - Endo appt end of May Assessment & Plan (06/06/2023 2:42 PM OPTOMETRY TEACHER): 06/05/23 stopping empa due to contraindication in this patient with PAD / recent amputation. GLP1-RA contraindicated given Hx pancreatitis. Monitor glucoses and consider uptitration of basal insulin if appropriate. Continue metformin 09171 BID. 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 Will write for diabetic shoes Assessment & Plan (07/13/2018 5:01 PM OPTOMETRY TEACHER): Diabetes is improving with treatment. Continue [...] -continue metformin 1000 mg BID -referral to music internship Assessment & Plan (01/15/2018 12:14 PM CDT): [...] regimen Assessment & Plan (08/09/2018 1:46 PM OPTOMETRY TEACHER): BP 120/65 on manual recheck -continue current regimen -instructed patient to hold his ramipril if he experiences any more orthostatic symptoms, especially if he is not eating/drinking well Assessment & Plan (07/13/2018 5:00 PM OPTOMETRY TEACHER): Hypertension is improving with treatment. Weight [...] cessation. Assessment & Plan (10/06/2023 9:33 AM OPTOMETRY TEACHER): Received prosthetic, working on final fitting Following with vascular surgery Assessment & Plan (07/07/2023 11:25 AM OPTOMETRY TEACHER): - Follow-up with Vascular surgery schedule in two months - Pt working on fu with pain management - Initiation of chronic narcotics as elsewhere - Will work on obtaining approval for a prosthesis - Cont medications as prescribed, no changes at this time Assessment & Plan (06/19/2023 12:54 PM OPTOMETRY TEACHER): - Saw Vascular surg 06/05: working [...] BKA and participating in physical therapy. A [facility] rep will visit the patient and [...] medications: oxycodone 5 mg BID prn; hydrocodone/APAP ([id number], d/c'd due to increasing requirement), amitriptyline d/c'd [...] taper Assessment & Plan (07/31/2024 10:06 PM OPTOMETRY TEACHER): Patient reports worsening of his chronic pain since tapering of opioids and increased reliance on MJ for pain management. PLAN: - Encouraged patient to schedule with pain management - Increase gabapentin from 300 to 600 TID Assessment & Plan (06/02/2024 1:56 PM OPTOMETRY TEACHER): PLAN: - Pain management profile performed [...] desires. Assessment & Plan (10/06/2023 11:57 AM OPTOMETRY TEACHER): Cont chronic narcotics, recently refilled at TEAM visit Taper venlafaxine like described above Assessment & Plan (07/07/2023 11:48 AM OPTOMETRY TEACHER): - Plan to restart chronic Oxycodone [...] control Assessment & Plan (06/19/2023 12:59 PM OPTOMETRY TEACHER): Filled #10 patches on 06/15 (initially [...] 07/07 Assessment & Plan (06/06/2023 2:43 PM OPTOMETRY TEACHER): In setting of recent AKA / post-op pain, currently being managed by vascular surgery, who is continuing fentanyl patches + oxycodone at present. Continue without morphine at this time, though anticipate transition back to it in the future. Assessment & Plan (05/15/2023 9:26 AM CDT): Acute on chronic pain. Chronic pain managed by [facility] - Home regimen Morphine [...] once daily, #30 tablet sent 12/14 to [facility] in [place]. Assessment & Plan (12/13/2022 5:09 PM CDT): [...] cannot be on both methadone and hydrocodone assisted. -f/u in one month for refills -UDS [...] lifespan Assessment & Plan (09/03/2018 3:52 PM OPTOMETRY TEACHER): -refilled methadone 5 mg PO 2 tabs in qAM, 1 tab in afternoon, 2 tabs qPM (#115) -received letter in mail about his methadone requiring a prior auth. When I completed the prior auth online via [employer], it says that he has already been approved Assessment & Plan (08/09/2018 1:45 PM OPTOMETRY TEACHER): -refilled methadone 5 mg (#150 pills) -new Medicare Part D prescription plan required prior auth. Pt only able to get 7 days of methadone at this time. Called [facility] and obtained prior auth (Case #[id number] with dates 07/31/18 - 08/09/19 and [id number] with dates 07/31/18 - 08/09/19) -will need to come back in 1 week for methadone Rx for 21 days. He has a f/u appt with ri 09/03/18. Assessment & Plan (07/13/2018 5:03 PM OPTOMETRY TEACHER): -UDS ordered -methadone refilled Assessment & Plan (04/06/2018 2:07 PM CDT): Last refilled methadone around 03/15. No red flags -UDS today -methadone refill handed to patient with do not fill before 04/14 -filled out [place] disabled parking placard and mailed to [place] offices Assessment & Plan (01/15/2018 12:07 PM [...] carvedilol. Assessment & Plan (10/06/2023 9:27 AM OPTOMETRY TEACHER): No active chest pain, CTM Following [...] 04/10/2024 Assessment & Plan (10/06/2023 11:56 AM OPTOMETRY TEACHER): Currently on venlafaxine 150 Been on [...] provided resources for mental health resources in [place] - Discussed additional pharmacotherapy options, can trial duloxetine or different SSRI if symptoms don't improve Hyperkalemia 06/06/2023 07/07/2023 Assessment & Plan (06/06/2023 2:44 PM OPTOMETRY TEACHER): K 5.1. On losartan 12.5. We [...] (06/09/2020): Added automatically from request for surgery [id number] Other dysphagia 09/20/2019 08/25/2021 Leukocytosis 05/20/2019 08/07/2022 [...] PM CDT): Following with Dr. Contreras at [facility], f/u scheduled 11/2022 Cont current prednisone [...] wear Orthopedic surgeon is Dr. Hong at [facility] in [place] Assessment & Plan (12/20/2018 11:59 AM CDT): [...] gel Assessment & Plan (09/03/2018 3:49 PM OPTOMETRY TEACHER): -XR of R tib/fib and knee [...] 09/19/18 Assessment & Plan (09/03/2018 4:10 PM OPTOMETRY TEACHER): Resolved. Has been pain free for [...] 08/12-08/14/16, at which point prescribed creon supplements, [id number] TID with meals. No significant alcohol abuse [...] Department Care Team Description 07/16/2025 2:00 PM OPTOMETRY TEACHER Home Care Visit [facility] - [address] [place] [id number] Deann Galeano RN SN HOME VISIT 07/16/2025 Telephone [facility] [address] [facility] Outpatient Health [address] [place] [address] Harjeet Cintron MD Follow-up 07/16/2025 Telephone [facility] [address] [facility] 8th [place] [address] [place] [phone] Murali Chandra MD 07/15/2025 2:45 PM OPTOMETRY TEACHER - 07/15/2025 11:59 PM OPTOMETRY TEACHER Hospital Encounter [facility] Cardiac Diagnostic Lab [address] [facility] 8th [place] [phone] Arterial insufficiency of lower extremity Discharge Disposition: Discharge to home or self care 07/15/2025 Telephone [facility] [address] [facility] Floor 1 [place] [phone] Koko Cintron MD 07/15/2025 Orders Only [facility] [address] [facility] [address] [place] [address] Harjeet Cintron MD Hx of AKA (above knee amputation), left (HCC) (Primary Dx) 07/14/2025 2:30 PM OPTOMETRY TEACHER Office Visit [facility] [facility] 8th [place] [address] [place] [address] Koko Cintron MD Encounter for surgical aftercare following surgery on the circulatory system (Primary Dx) 07/14/2025 1:45 PM OPTOMETRY TEACHER Ancillary Procedure [facility] V[facility] Lab at the [facility] [address] [facility] 8th [place] [address] [place] [phone] 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); Encounter for follow-up examination after completed treatment for conditions other than malignant neoplasm; Encounter for surgical aftercare following surgery on the circulatory system 07/14/2025 Telephone [facility] Met[facility] and Lipid [facility] 13th [place] [address] [place] [phone] Marlin Hedrick RMA JANNY ([employer]) 07/11/2025 12:31 PM OPTOMETRY TEACHER - 07/11/2025 11:59 PM OPTOMETRY TEACHER Hospital Encounter [facility] Radiology [address] [place] [address] Acute pain of right knee Discharge Disposition: Discharge to home or self care 07/11/2025 11:40 AM OPTOMETRY TEACHER Clinical Support [facility] Residents [facility] [address] [place] [address] 07/11/2025 10:45 AM OPTOMETRY TEACHER Office Visit [facility] [address] [place] [address] [address] [place] [address] Laura Bravo MD Healthcare maintenance (Primary Dx); Acute pain of right knee; Tobacco use; ILD (interstitial lung disease) ([facility]) 07/10/2025 11:00 AM OPTOMETRY TEACHER Home Care Visit [address] [place] [address] Deann Galeano RN SN HOME VISIT 07/10/2025 Telephone [facility] [address] [place] [address] [address] [place] [address] Harjeet Cintron MD Additional Services Or Orders (/) 07/07/2025 10:00 AM OPTOMETRY TEACHER Home Care Visit [address] [place] [address] Deann Galeano RN SN HOME VISIT 07/04/2025 1:30 PM OPTOMETRY TEACHER Home Care Visit [address] [place] [address] Linda Akbar SN HOME VISIT 07/02/2025 Telephone [facility] Endocrinology Metabolism and Lipid [address] [facility] 13th [place] [address] [place] [address] Marlin Hedrick RMA JANNY\ ([facility]) 07/02/2025 Telephone [facility] Endocrinology Metabolism and Lipid [address] [facility] 13th [place] [address] [place] [phone] Marlin Hedrick RMA Prior Auth (Dexcom G7 Sensor and Reciever) 07/01/2025 10:00 AM OPTOMETRY TEACHER Home Care Visit [place] [address] [address] [place] [address] Linda Akbar SN HOME VISIT 07/01/2025 Telephone [facility] [address] [place] [address] Outpatient Health [address] [place] [address] Amanda Paiz, BARTOLOME 07/01/2025 Home Care Visit [place] [address] [address] [place] [address] Deann Galeano RN CARE CONFERENCE 06/30/2025 Telephone [facility] Met[facility] and Lipid [address] [facility] Floor 1, [address] [place] [address] Carina Fair RN Prior Auth (FreeStyle Demetrius 3 Plus Sensor) 06/30/2025 Home Care Visit [place] [address] [address] [place] [address] Autumn Flynn, RN WOCN CONSULT 06/29/2025 11:00 AM OPTOMETRY TEACHER Home Care Visit [place] [address] [address] [place] [address] Deann Galeano RN SN OASIS START OF CARE 06/29/2025 Plan of Care Documentation [place] [address] [address] [place] [address] [address] [place] [address] Meghann Kitchen, BARTOLOME Home Health 2025 Telephone [facility] [address] [place] [address] Outpatient Health [address] [place] [address] Amanda Paiz, BARTOLOME Follow-up 2025 Telephone [facility] [address] [facility] [address] [place] [address] Harjeet Cintron MD Follow-up 06/20/2025 1:00 PM OPTOMETRY TEACHER Lab [facility] [address] [place] [address] Arterial insufficiency of lower extremity 06/20/2025 11:15 AM OPTOMETRY TEACHER Office Visit [facility] [address] [facility] [address] [place] [address] Arterial insufficiency of lower extremity (Primary Dx) 06/20/2025 Telephone [facility] Met[facility] and Lipid [address] [place] [address] 13th [place] [address] [place] [address] Marlin Hedrick RMA ROI ([employer]) 06/06/2025 Nurse Triage [facility] Specialty Services [address] [place] [address] Anna Tatum RN 06/06/2025 Orders Only [facility] [address] [place] [address] 8th [place] [address] [place] [phone] Koko Cintron MD 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) (Primary Dx); Encounter for surgical aftercare following surgery on the circulatory system; Encounter for follow-up examination after completed treatment for conditions other than malignant neoplasm 06/06/2025 [facility] [address] [facility] Floor 1 [place] [phone] Koko Cintron MD 06/06/2025 Telephone [facility] 8th [place] [address] [place] [phone] Koko Cintron MD 06/06/2025 Telephone [facility] [address] [place] [address] 8th [place] [address] [place] [phone] Murali Chandra MD Wound 05/09/2025 12:45 PM CDT Lab [facility] [address] [place] [address] Irritable bowel syndrome with diarrhea 05/09/2025 11:15 AM CDT Office Visit [facility] [address] [place] [address] [address] [place] [address] Irritable bowel syndrome with diarrhea (Primary Dx) 05/05/2025 Nurse Triage [facility] Specialty Services [address] [place] [phone] Barbara Le, BARTOLOME from Last 3 Months Immunizations Immunization Administration Dates Next Due COVID-19 mRNA ([email or web address]) 0.3 m L (30 mcg) vaccine (12 [...] 06/05/2023 Surgical History Surgery Date Site/Laterality Comments GA BYP OTH/THN VEIN FEMORAL-POPLITEAL Bypass Graft (Non-vein) [...] Added autom atically from request for surgery [id number] Hypokalemia 01/09/2023 Hyperkalemia 06/06/2023 Transaminitis 01/14/2023 Family [...] often do you attend chur ch or baptist services? Never 05/11/2023 Do you belong to any clubs o r organizations such as taoist groups, unions, fraternal or athletic groups, or [...] on file Legal Sex Male 1:17 AM OPTOMETRY TEACHER Gender Identity Not on file Sexual Orientation Not on file Last Filed Vital Signs Vital Sign Reading Time Taken Comments Blood Pressure 110/62 07/14/2025 2:08 PM OPTOMETRY TEACHER Pulse 67 07/14/2025 2:08 PM OPTOMETRY TEACHER Temperature 36.4 C (97.5 F) 07/11/2025 11:04 AM OPTOMETRY TEACHER Respiratory Rate 18 07/11/2025 11:04 AM OPTOMETRY TEACHER Oxygen Saturation 99% 07/14/2025 2:08 PM OPTOMETRY TEACHER w/ o2 tank Inhaled Oxygen Concentration - - Weight 72.1 kg (159 lb) 07/14/2025 2:08 PM OPTOMETRY TEACHER Height 177.8 cm (5' 10) 06/29/2025 10:54 AM OPTOMETRY TEACHER Body Mass Index 22.81 06/29/2025 10:54 AM OPTOMETRY TEACHER Plan of Treatment Scheduled Procedures Name [...] Cancer Screening 11/03/2024 11/03/2023, 022 Covid-19 Vaccine (5 - 2024-2 6 season) 2025 05/31/2024, 07/02/2021, 10/20/2020, Additional history exists Hemoglobin A1C 01/09/2026 07/11/2025, 04/2 11/2024, 04/05/2024, Additional history exists Depression Screening [...] take, when to call CM or provider. [facility] Chronic Pain Care Plan Chronic Care Management No change(09/20 9:23 AM OPTOMETRY TEACHER) No Marla Sheppard, RN Note: Problem: Chronic Pain// ABD pain, legs Goals: 1. Minimize further functional decline 2. Maximize quality of life 3. Control pain Strategies: - Activity/exercise program recommendation - Conservative stepwise pain medicine strategy with multi-disciplinary approach - Recommend healthy lifestyle strategies and compensatory methods as needed Medical Devices Implanted Type Area Shook Splicer Device Identifier Shelf Expiration Date Model / Serial / Lot Exo Mahendra Angio-Seal Vip 6fr Closere Device [id number] - [id number] - [id number] Implanted:Qty : 1 on 03/24/2023 by Igor Hall MD at [facility] Collagen Right: Femoral [employer] Mahendra 10/29/2023 [id number] / [id number] / [id number] Stent Stent Right: Neck [employer] [id number] Stent System Biomimics 3d Vascular [id number] - [id number] Implanted:Qty : 1 on 08/24/2021 by Koko Cintron MD at [facility] Stent [employer] 10/26/2021 [id number] / / [id number] [employer] [id number] Stent System Biomimics 3d Vascular [id number] - [id number] Implanted:Qty : 1 on 08/24/2021 by Koko Cintron MD at [facility] Stent [employer] 08/08/2022 [id number] / / [id number] Procedures Procedure Name Priority Date/Time Associated Diagnosis Comments TRANSTHORACIC ECHO (TTE) COMPLETE W DOPPLER/CF W CONTRAST Routine 07/15/2025 4:12 PM OPTOMETRY TEACHER Arterial insufficiency of lower extremity US VEIN DUPLEX LOWER EXTREMITY RIGHT LIMITED Schedule Routine, Read Routine (OP Routine) 07/14/2025 1:58 PM OPTOMETRY TEACHER 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) Encounter for follow-up examination after completed treatment for conditions other than malignant neoplasm US ARTERIAL DOPPLER LOWER EXTREMITY BILATERAL Schedule Routine, Read Routine (OP Routine) 07/14/2025 1:58 PM OPTOMETRY TEACHER 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) Encounter for surgical aftercare following surgery on the circulatory system XR KNEE RIGHT 1 OR 2 VIEWS Schedule Routine, Read Routine (OP Routine) 07/11/2025 12:50 PM OPTOMETRY TEACHER Acute pain of right knee POCT GLUCOSE DEVICE Routine 07/11/2025 11:09 AM OPTOMETRY TEACHER POCT HEMOGLOBIN A1C Routine 07/11/2025 11:09 AM OPTOMETRY TEACHER EGFR Routine 06/20/2025 1:07 PM OPTOMETRY TEACHER Arterial insufficiency of lower extremity COMPREHENSIVE METABOLIC PANEL Routine 06/20/2025 1:07 PM OPTOMETRY TEACHER Arterial insufficiency of lower extremity IGA Routine 05/09/2025 12:50 PM CDT Irritable bowel syndrome with diarrhea TISSUE TRANSGLUTAMINASE, IGA Routine 05/09/2025 12:50 PM CDT Irritable bowel syndrome with diarrhea LIPID PANEL Routine 02/07/2025 9:47 AM CDT Type 2 diabetes mellitus with diabetic neuropathy, unspecified whether assisted insulin use (HCC) ALBUMIN CREATININE RATIO, URINE Routine 02/07/2025 9:47 AM CDT Type 2 diabetes mellitus with diabetic neuropathy, unspecified whether long chain beamer insulin use (HCC) CT LUNG CANCER SCREENING Schedule Routine, Read Routine (OP Routine) 11/03/2023 11:21 AM CDT Encounter for screening for lung cancer CTA ABDOMINAL AORTA AND BILATERAL ILIOFEMORAL RUNOFF ED Urgent/IP Urgent 05/08/2023 8:14 PM CDT COLONOSCOPY 01/09/2023 11:19 AM CDT PSA, TOTAL AND FREE Routine 07/22/2019 10:21 AM OPTOMETRY TEACHER Unintentional weight loss Leukocytosis, unspecified type HEPATITIS PANEL, ACUTE After X-Ray 01/23/2017 10:58 AM CDT from Last 3 Months or Most Recently Relevant to Health Maintenance Results * TRANSTHORACIC ECHO (TTE) COMPLETE W DOPPLER/CF W CONTRAST (07/15/2025 4:12 PM OPTOMETRY TEACHER) EF Mod BP 52 % CONS SCIMAGE Anatomical Region Laterality Modality Ultrasound 07/15/2025 2:56 PM OPTOMETRY TEACHER Narrative 07/16/2025 10:42 AM OPTOMETRY TEACHER [facility] [place] [address] Transthoracic Echocardiographic Report Patient Name: DOMINGO COOPER E : 1955 (70y ) Sex: M Study Date: 07/15/2025 02:56:29 PM Ht(Inch): 70 Wt(Lb): 158.95 BSA: 1.89 National Van Owner Operator: RAMESH Li,[facility] Location: [facility] Order Provider: CARLOS A COHEN Heart Rate: [...] LA Length 4C 6.9 cm AI Decel Catron 3 m/s2 LA Length 2C 6.8 cm [...] By: Mello Gomez M.D. 07/16/2025 10:42:07 AM OPTOMETRY TEACHER Procedure Note Mello Gomez MD PhD - 07/16/2025 [facility] [place] [address] Transthoracic Echocardiographic Report Patient Name: DOMINGO COOPER E : 1955 (70y ) Sex: M Study Date: 07/15/2025 02:56:29 PM Ht(Inch): 70 Wt(Lb): 158.95 BSA: 1.89 National Van Owner Operator[facility] Location: [facility] Order Provider:CARLOS A COHEN Heart Rate: 63 [...] [ -25.0 - -18.0 ] AI Decel [id number] sec LA Length 4C 6.9 cm AI Decel Slope3 m/s2 LA Length 2C 6.8 cm AI [id number] msec LA Volume BP 113 ml RV S`12.5 cm/sec LA Volume Index 60 ml/m2 [ 16 - 34 ] TR Peak Vel3.4 m/s [ 1.0 - 2.8 ] RV Base Dimen 2D 4.3 cm [ 2.5 - 4.2 ] TR Peak PG46 mmHg RV Mid Dimen 2D 3.1 cm TR [id number] cm RV ED Area 20 cm2 [ 10 - 24 ] RV ES Area 12 cm2 [ 3 - 15 ] RV FAC 39 % [ 35 - 63 ] TAPSE 2.5 cm [ 1.7 - 5.0 ] RA Qpsilz91 ml RA Volume Index33 ml/m2 IVC Diam2.0 cm IVC Collapse 22.5 % AoR Diam 2D 3.6 cm [ 3.1 - 3.7 ] Ao Root Index 1.9 cm/m2 [ 1.0 - 2.0 ] Asc Ao Diam 2D4.0 cm Asc Ao Index2.1 cm/m2 Electronically Signed By: Mello Gomez M.D. 07/16/2025 10:42:07 AM OPTOMETRY TEACHER us Carlos A Cohen MD CV ECHO PROCEDURES Final Result * US Vein Duplex Lower Extremity Right Limited, Unilateral (07/14/2025 1:58 PM OPTOMETRY TEACHER) Anatomical Region Laterality Modality Vascular Right Ultrasound 07/14/2025 1:25 PM OPTOMETRY TEACHER Narrative 07/15/2025 8:55 AM OPTOMETRY TEACHER [facility] - Department of Vascular Surgery, Vascular Laboratory [address] [place] [address] Lower Extremity Venous Ultrasound Report Patient Name: DOMINGO COOPER E : 1955 (70y ) Study Date: 07/14/2025 1:25:01 PM Sex: M Tech: DB Location: [facility] Ref Provider: KOKO CINTRON Quality: Adequate Order [...] conditions other than malignant neoplasm. FINDINGS: Performing National Van Owner Operator: Dior Nassar RVT. Right: Venous Doppler signals [...] Koko Cintron MD FACS 07/15/2025 7:48:58 AM OPTOMETRY TEACHER Procedure Note Koko Cintron MD - 07/15/2025 [facility] - Department of Vascular Surgery,Vascular Laboratory [address] [place] [address] Lower Extremity Venous Ultrasound Report Patient Name: DOMINGO COOPER E : 1955 (70y ) Study Date: 07/14/2025 1:25:01 PM Sex: M Tech: DB Location: [facility] Ref Provider: KOKO CINTRON Quality: Adequate Order [...] forconditions other than malignant neoplasm. FINDINGS: Performing National Van Owner Operator: Dior Nassar RVT. Right: Venous Doppler signals [...] above. Electronically Signed By: Koko Cintron MD [facility] 07/15/2025 7:48:58 AM OPTOMETRY TEACHER us Koko Cintron MD IMG US PROCEDURES Final R esult * US Arterial Doppler Lower Extremity Bilateral (07/14/2025 1:58 PM OPTOMETRY TEACHER) Anatomical Region Laterality Modality Vascular Bilateral Ultrasound 07/14/2025 1:37 PM OPTOMETRY TEACHER Narrative 07/15/2025 12:41 AM OPTOMETRY TEACHER [facility] - Department of Vascular Surgery, Vascular Laboratory [address] [place] [address] Lower Extremity Arterial Doppler Report Patient Name: DOMINGO COOPER E : 1955 Study Date: 07/14/2025 1:37:00 PM Sex: M Tech: Dior Nassar RUST Location: [facility] Provider: KOKO CINTRON Quality: Adequate Order [...] mmHg Lt Brachial Pressure 107 mmHg Rt FINANCIAL CONTROLLER Pressure 158 mmHg Rt DPA Pressure 79 mmHg Rt 1st Digit Pressure 26 mmHg Rt PT CHATA Resting 1.48 Rt AT CHATA Resting 0.74 Rt Digit/Arm Index 0.24 Right Value Units Left Value Units FINDINGS: Performing National Van Owner Operator: Dior Nassar RVT. Right Common Femoral Artery [...] Koko Cintron MD FACS 07/14/2025 11:46:31 PM OPTOMETRY TEACHER Procedure Note Koko Cintron MD - 07/15/2025 [facility] - Department of Vascular Surgery,Vascular Laboratory [address] [place] [address] Lower Extremity Arterial Doppler Report Patient Name: DOMINGO COOPER E : 1955 Study Date: 07/14/2025 1:37:00 PM Sex: M Tech: Dior Nassar RVT Location: [facility] Provider: KOKO CINTRON Quality: Adequate Order Provider: KOKO CINTRON PROCEDURES: Arterial Report: Bilateral lower extremity arterial Doppler exam at rest. 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 MEASUREMENTS: Right Value Units Left Value Units Rt Brachial Pressure 104 mmHg Lt Brachial Pressure 107 mmHg Rt FINANCIAL CONTROLLER Pressure 158 mmHg Rt DPA Pressure 79 mmHg Rt 1st Digit Pressure 26 mmHg Rt PT CHATA Resting 1.48 Rt AT CHATA Resting 0.74 Rt Digit/Arm Index 0.24 Right Value Units Left Value Units FINDINGS: Performing National Van Owner Operator: Dior Nassar RVT. Right Common Femoral Artery [...] PREVIOUS STUDIES: Previous study on 03/24/25- R-1.16 L-AKGen. DISCLAIMER: The study images and the final [...] above. Electronically Signed By: Koko Cintron MD [facility] 07/14/2025 11:46:31 PM OPTOMETRY TEACHER Koko Cintron MD [facility] US PROCEDURES Final R esult * XR Knee Right 1 or 2 Views (07/11/2025 12:50 PM OPTOMETRY TEACHER) Anatomical Region Laterality Modality Lower Extremities, Knee Right Computed Radiography 07/11/2025 1:55 PM OPTOMETRY TEACHER Impressions 07/11/2025 1:55 PM OPTOMETRY TEACHER Modular total right knee arthroplasty in near anatomic position with healed proximal right tibial periprosthetic fracture. Electronically signed by: Nick Gonzalez MD [facility] 07/11/2025 1:55 PM OPTOMETRY TEACHER EXAMINATION: XR KNEE RIGHT 1 OR [...] (ABNORMAL) POCT hemoglobin A1c (07/11/2025 11:09 AM OPTOMETRY TEACHER) Hgb A1C, POC 6.3(H) 4.0 - 5.6 % Est Average Gluc POC 134 mg/dL [facility] Comment: The ADA recommends reporting an estimated Average Glucose (eAG) with all Hemoglobin A1c results using the equation derived from a study of 507 normal and diabetic adults. Minority populations were underrepresented and children were not included. (Diabetes Care 31:5249-6258, 2008). The eAG is not equivalent to a fasting glucose. Blood 07/11/2025 11:0 9 AM OPTOMETRY TEACHER 07/11/2025 11:09 AM OPTOMETRY TEACHER Result [facility] us Laura Bravo MD POINT OF CARE TEST ORDERABLES Fi nal Result Performing Organization Address [facility] Co de Phone Number [facility] [place] [address] * (ABNORMAL) POCT glucose (07/11/2025 11:09 AM OPTOMETRY TEACHER) Glucose, POC 286(H) 70 - 199 mg/dL Blood 07/11/2025 11:0 9 AM OPTOMETRY TEACHER 07/11/2025 11:09 AM OPTOMETRY TEACHER us Laura Bravo MD LAB POCT ORDERABLES - DEVICE Fin al Result Performing Organization Address [facility] Co de Phone Number [facility] [place] [address] * eGFR (06/20/2025 1:07 PM OPTOMETRY TEACHER) Pathologist [facility] [place] eGFR >90 >=60 mL/min/1. 73 m2 Comment: [...] last reviewed 2021. Blood 06/20/2025 1:07 PM OPTOMETRY TEACHER 06/20/2025 2:37 PM OPTOMETRY TEACHER us Carlos A Cohen MD LAB BLOOD ORDERABLES [place] lock Result [facility] Department [place] [address] * (ABNORMAL) Comprehensive metabolic panel (06/20/2025 1:07 PM OPTOMETRY TEACHER) [facility] Sodium 139 135 - 145 mmol/L Potassium, pl 4.4 3.3 - 4.9 mmol/L [facility] Chloride 95(L) 97 - 110 mmol/L [facility] CO2 38(H) 22 - 32 mmol/L [facility] Anion gap 6 2 - 15 mmol/L [facility] BUN 16 6 - 25 mg/dL [facility] Creatinine 0.79(L) 0.80 - 1.30 mg/dL [facility] Glucose 121 70 - 199 mg/dL [facility] Comment: Interpretive Data Fasting glucose [...] classification and Diagnosis of Diabetes Diabetes Care 2021; 46: S19-S40. Current interpretive data was last revised 2022. Calcium 8.1(L) 8.5 - 10.3 mg/dL [facility] Bilirubin, total 0.9 0.1 - 1.2 mg/dL [facility] Protein, pl 6.5 6.5 - 8.5 g/dL [facility] Albumin 3.5 3.5 - 5.0 g/dL [facility] Alk phos 68 40 - 130 Units/L [facility] ALT 17 7 - 55 Units/L [facility] AST 29 10 - 50 Units/L [facility] Blood 06/20/2025 1:07 PM OPTOMETRY TEACHER 06/20/2025 2:26 PM OPTOMETRY TEACHER us Carlos A Cohen MD LAB BLOOD ORDERABLES [place] l Result Performing Organization Address [facility] Co de Phone Number [facility] Department [place] [address] * Tissue transglutaminase IgA (TGG-IgA Ab) (05/09/2025 12:50 PM CDT) TTG ab, IgA <0.5 <=14.9 units/mL Comment: Interpretive data Negative: <15 units/mL Positive: > or equal to 15 units/mL Current interpretive data was last revised on 2016. Blood 05/09/2025 12:5 0 PM CDT 05/09/2025 2:07 PM CDT us Esteban Aragon MD LAB BLOOD ORDERABLES [place] l Result [facility] Department [place] [address] * IgA (05/09/2025 12:50 PM CDT) [facility] Immunoglobulin A 359 70 - 400 mg/dL Blood 05/09/2025 12:5 0 PM CDT 05/09/2025 2:07 PM CDT Esteban Aragon MD LAB BLOOD ORDERABLES [place] l Result Performing Organization Address [facility] de Phone Number [facility] Department [place] [address] * Albumin Creatinine Ratio, Urine (02/07/2025 9:47 AM CDT) [facility] Albumin Ur <12.0 mg/L Comment: Interpretive Data No reference range established. Current interpretive data was last revised 2018. Creatinine Ur 15.1 mg/dL [facility] Comment: Interpretive Data No reference range established. Current interpretive data was last revised 2018. Albumin Creatinine Ratio, Ur See Comment 1 - 29 mg/g [facility] Comment:Unable to calculate Urine 02/07/2025 9:47 AM CDT 02/07/2025 10:19 AM CDT Shweta Urban NP LAB URINE ORDERABLES [place] l Result Performing Organization Address [facility] Co de Phone Number [facility] Department [place] [address] * (ABNORMAL) Lipid panel (02/07/2025 9:47 AM CDT) [facility] Cholesterol 147 30 - 199 mg/dL Comment: [...] revised on 2018. Triglycerides 131 <=149 mg/dL [facility] Comment: Interpretive Data Ages < [...] revised on 2018. HDL 30(L) >=40 mg/dL [facility] Comment: Interpretive Data Ages < [...] on 2018. LDL, calculated 93 <=129 mg/dL [facility] Comment: Interpretive Data Ages < or = 19 years Acceptable: <110 mg/dL Borderline high: 110-129 mg/dL High: >or= 130 mg/dL Ages > or = 20 years Optimal: <100 mg/dL Near optimal: 100-129 mg/dL Borderline high: 130-159 mg/dL High: >160 mg/dL Calculated using the Sage LDL-C estimating equation. This equation was implemented on 2024. Prior to this date LDL-C was estimated using the Friedewald equation. Literature References: 1. Expert Panel on Integrated Guidelines for Cardiovascular Health and Risk Reduction in Children and Adolescents. Pediatrics 2011;128:S213 2. NCEP Expert Panel. Circulation 2004;110:227 3. Chu M et al. EDWIN Cardiol. 2019November 28;5(5):540-548. doi: 10.1001/jamacardio.2020.0013 Current Interpretive Data was last revised on 2024. Non-HDL Cholesterol 117 mg/dL [facility] Comment: Interpretive Data Ages < or = [...] last revised on 2018. Chol/HDL ratio 5 [facility] Blood 02/07/2025 9:47 AM CDT 02/07/2025 10:19 AM CDT Narrative [facility] - 02/07/2025 11:13 AM CDT These lab test should be done fasting. This means do not eat or drink for at least 12 hours prior to getting your blood drawn. Shweta Urban NP LAB BLOOD ORDERABLES [place] lock Result [facility] [place] [address] * CT Lung Cancer Screening (11/03/2023 11:21 [...] Male Attending MD: Radha Miranda M.D. Room: [facility] OR POD 5 ROOM 229 Note Status: [...] scope was passed under direct vision.The CF [id number] Endoscope was introduced through the anus [...] On: 01/09/2023 11:19 AM Recognized by the [place] Society for Gastrointestinal Endoscopy for promoting quality in endoscopy us Radha Miranda MD ENDOSCOPY PROCEDURES Final Res ult * PSA, total and free (07/22/2019 10:21 AM OPTOMETRY TEACHER) PSA-free 0.1 ng/mL [facility] PSA-Total 0.52 <=4.5 ng/mL [facility] PSA-Free/Total Ratio See Footnote [facility] Comment: Ratio not calculated because clinical usefulness is not defined except in range of total PSA 4.0-10.0 ng/mL. ADDITIONAL INFORMATION The testing method is an electrochemiluminescence assay manufactured by [employer] and performed on the Modular or Sara system. Values obtained with different assay methods or kits may be different and cannot be used interchangeably. Test results cannot be interpreted as absolute evidence for the presence or absence of malignant disease. Test Performed by: [facility] [address] [place] [address] Vtc Technician: Bob Sarkar M.D. Ph.D.; IA# [id number] Blood specimen (specimen) 07/22/2019 10:21 AM OPTOMETRY TEACHER 07/22/2019 10:52 AM OPTOMETRY TEACHER Sorin Santos MD LAB BLOOD ORDERABLES nal Result [facility] Department [place] [address] * Hepatitis panel, acute (01/23/2017 10:58 AM CDT) [facility] Hep A IgM Nonreactive Nonreactive [facility] Comment: Interpretive Data If test is reported as GRAYZONE, new sample should be drawn in two weeks for testing. Current interpretive data was last revised on 2016. Hep B core IgM Nonreactive Nonreactive [facility] Comment: Interpretive Data If test is reported as GRAYZONE, new sample should be drawn for testing. Current interpretive data was last revised on 2016. Hep C Ab Nonreactive Nonreactive [facility] Comment: Interpretive Data Positive and greyzone results should be confirmed by a molecular method. If positive or greyzone, a second separately collected sample should be submitted for Hepatitis C Virus RNA. Detection and Quantitation by Real-Time Reverse Manager Managed Care-PCR.Current Interpretive data was last revised on 2017. HepBsAg Nonreactive Nonreactive [facility] Blood specimen (specimen) 01/23/2017 10:58 AM CDT 01/23/2017 12:08 PM CDT Rina Aviles NP LAB MICROBIOLOGY - GENERAL OR DERABLES Edited Result - Final [facility] [place] [address] from Last 3 Months or Most Recently Relevant to Health Maintenance [place] [address] [facility] [place] [facility] MEDICARE MEDICARE ANTHEM ACCESS CHOICE MEDICARE [place] [address] [employer] ACCESS CHOICE Advance Directives For more information, please contact: [phone] * LIMITED - No CPR (Latest Code [...] 4:59 PM 08/25/2021 1:56 PM Care Teams Traveling Freight Agent Relationship Specialty Start Date End Date Harjeet Cintron MD [address] [place] [address] PCP - General 01/20/24 Koko Cintron MD Surgeon Vascular Surgery 08/25/21
--- OUTSIDE RECORDS SUMMARY | 2025-07-16 16:52 | XMS_ITS | Encounter Summary ---
Author Organization [facility] Healthcare Address [address] [place] [address] Care Team Providers Care Administrative Assistant Data Entry Name Role Phone Amando Cintron MD Unavailable Alfredo Negron MD Primary Care Provide r Angélica Boyd RN Unavailable Unavailable Rosalva Pricne RN Unavailable [phone] Nisha Lepe RN Unavailable Harjeet Cintron MD Primary Care Prov ider Encounter Details Date Type Department Care Team (Late st Contact Info) Description 09/19/2022 Telephone [facility] Primary Care Medicine Clinic [address] [facility] [address] [place] [address] Alfredo Negron MD [address] [facility] [facility] [address] [place] [address] Social History Tobacco Use Types Packs/Day Years [...] on file Legal Sex 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 [facility] Chronic Pain Care Plan Chronic Care Management No change(09/20 9:23 AM AMERICAN INDIAN POLICY SPECIALIST) Marla Mcdaniel RN Note: Problem: Chronic [...] documented as of this encounter Care Teams Administrative Assistant Data Entry Relationship Specialty Start Date End Date Alfredo Negron MD PCP - General Internal Medicine 10/28/21 01/19/24 Harjeet Cintron MD [address] [place] [address] PCP - General 01/20/24 Amando Cintron MD Surgeon Vascular Surgery 08/25/21 Angélica Boyd, BARTOLOME Registered Nurse Pulmonary Disease 02/09/22 11/08/24 Rosalva Prince, BARTOLOME [address] [facility] [address] [place] [address] [facility] Counselor 01/03/23 01/15/23 Nisha Lepe RN [address] [place] [address] [address] [place] [address] Auto Locator 01/21/23 02/16/23 documented as of this encounter
--- OUTSIDE RECORDS SUMMARY | 2025-07-16 16:54 | XMS_ITS | Encounter Summary ---
Author Organization [facility] Healthcare Address [address] [place] [address] Care Team Providers Care Marketing Lead Name Role Phone Amando Cintron MD Unavailable Alfredo Negron MD Primary Care Provide r Angélica Boyd RN Unavailable Unavailable Rosalva Prince RN Unavailable [phone] Nisha Lepe RN Unavailable Harjeet Cintron MD Primary Care Prov ider Encounter Details Date Type Department Care Team (Late st Contact Info) Description 09/16/2022 Telephone [facility] Primary Care Medicine Clinic [address] [facility] [address] [place] [address] Alfredo Negron MD [address] [facility] [address] [place] [address] Social History Tobacco Use Types Packs/Day Years [...] on file Legal Sex Male 1:17 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 [facility] Chronic Pain Care Plan Chronic Care Management No change(09/20 9:23 AM GLOBAL COORDINATOR) Maral Mcdaniel RN Note: Problem: Chronic Pain// ABD [...] documented as of this encounter Care Teams Marketing Lead Relationship Specialty Start Date End Date Alfredo Negron MD PCP - General Internal Medicine 10/28/21 01/19/24 Harjeet Cintron MD [address] [place] [address] PCP - General 01/20/24 Amando Cintron MD Surgeon Vascular Surgery 08/25/21 Angélica Boyd, BARTOLOME Registered Nurse Pulmonary Disease 02/09/22 11/08/24 Rosalva Prince, BARTOLOME [address] [facility] [address] [place] [address] [facility] Outpatient Opal Polisher 01/03/23 01/15/23 Nisha Lepe RN [address] [place] [address] [address] [place] [address] Telemarketing Agent 01/21/23 02/16/23 documented as of this encounter
--- OUTSIDE RECORDS SUMMARY | 2025-07-16 16:54 | XMS_ITS | Encounter Summary ---
Author Organization [facility] Address [address] [place] [address] Phone Care Team Providers Care Family Preservation Caseworker Name Role Phone Amando Cintron MD Unavailable [phone] Harjeet Cintron MD Primary Care Prov ider Encounter Details Date Type Department Care Team (Late st Contact Info) Description 07/15/2025 Telephone [facility] Medicine Surgery [address] [facility] Floor [address] [place] [address] Amando Cintron MD [address] [facility] [address] [place], [place] [id number] Social History Tobacco Use Types Packs/Day Years [...] often do you attend chur ch or worship services? Never 05/11/2023 Do you belong to [...] slept in a mcc (including now)? 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 Please return his call NKLER FITTER HELPER documented in this encounter Plan of Treatment [...] take, when to call CM or provider. [facility] Chronic Pain Care Plan Chronic Care Management No change(09/20 9:23 AM SPRINKLER FITTER HELPER) No Marla Sheppard, RN Note: Problem: Chronic [...] on filedocumented in this encounter Care Teams Family Preservation Caseworker Relationship Specialty Start Date End Date Harjeet Cintron MD [address] [place] [address] PCP - General 01/20/24 Amando Cintron MD Surgeon Vascular Surgery 08/25/21 documented as of this encounter
--- OUTSIDE RECORDS SUMMARY | 2025-07-16 16:54 | XMS_ITS | Encounter Summary ---
Author Organization [facility] Healthcare Address [address] [place] [address] Care Team Providers Care [employer] Name Role Phone Amando Cintron MD Unavailable Alfredo Negron MD Primary Care Provide r Angélica Boyd RN Unavailable Unavailable Rosalva Prince RN Unavailable [phone] Nisha Lepe RN Unavailable [phone] Harjeet Cintron MD Primary Care Prov ider Encounter Details Date Type Department Care Team (Late st Contact Info) Description 09/14/2022 Telephone [facility] [address] [facility] [address] [place] [address] Dewayne Valentine Social History Tobacco [...] file Legal Sex Male 1:17 AM [employer] Gender Identity Not on file Sexual Orientation [...] (rather than stopping them without telling anyone). [facility] Chronic Pain Care Plan Chronic Care Management No change(09/20 9:23 AM [employer]) Marla Mcdaniel RN Note: Problem: Chronic Pain// [...] as of this encounter Care Teams [employer] Relationship Specialty Start Date End Date Alfredo Negron MD PCP - General Internal Medicine 10/28/21 01/19/24 Harjeet Cintron MD [address] [place] [address] PCP - General 01/20/24 Amando Cintron MD Surgeon Vascular Surgery 08/25/21 Angélica Boyd RN Registered Nurse Pulmonary Disease 02/09/22 11/08/24 Rosalva Prince, BARTOLOME [address] [facility] [address] [place], [place] [id number] [employer] Outpatient Ethnology Teacher 01/03/23 01/15/23 Nisha Lepe, BARTOLOME [address] [place] [address] [address] [place] [address] Spa Coordinator 01/21/23 02/16/23 documented as of this encounter
== END 2025-07-16 14:07 | disposition home or self-care (01) ==
PROVIDERS: Visit Provider Orthopaedic Surgery
DX: T84.84XA Pain due to internal orthopedic prosthetic devices, implants and grafts, initial encounter (principal); Z96.651 Presence of right artificial knee joint
CPT/HCPCS: 20610; 36415; 77002; 85025; 85652; 86140